=== PATIENT | female | born 1945 | race Caucasian/White ===

== ENCOUNTER 2016-03-23 21:24 | Inpatient (IN) | payer OTHER ==
--- NOTE | 2016-03-23 21:54 | PDOC ---
History of Present Illness <Mya Gonzales - Last Filed: 03/24/16 00:33> <Mireya Wallace - Last Filed: 03/24/16 02:16> - General Chief Complaint: Palpitations Stated Complaint: RAPID HEART RATE Time Seen by Provider: 03/23/16 21:34 - History of Present Illness Initial Comments: 03/23/16 23:15 The patient is a 70 year old female with a past medical hx of HTN, HLD, CAD, AFIB, CHF, [place] s/p cardiac stent, type 2 diabetes, who presents to the ED via EMS for evaluation of tachycardia this evening. EMS states she was found to be in SVT when they arrived at the scene. EMS states she was given 12 mg of adenosine en route to the ED, which she responded well too. The patient is feeling well while in the ED. She reports she has been taking half of the dose of her prescribed medications. The patient notes she has a long history of these tachycardic episodes in the past. The patient denies chest pain, SOB The patient denies fever, chills The patient denies nausea, vomiting, diarrhea Allergies: pregabalin, budesonide, celecoxib, formoterol fumarate, sulfacetamide sodium Past surgical history: Lung biopsy (2013), cardiac stent, brain aneurysm Social history: Social alcohol use. No tobacco or drug use reported PCP - Dr. Engle Cardiology - Dr. Lang (Mya Gonzales) Past History <Mya Gonzales - Last Filed: 03/24/16 00:33> - Past Medical History Anemia: No Asthma: No Cancer: No Cardiac Disorders: Yes (2009 STENT X1,, LINQ) 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) COPD: No CHF: No Dementia: No Diabetes: Yes GI Disorders: Yes (UMBILICAL HERNIA) Disorders: No HTN: Yes Hypercholesterolemia: Yes Liver Disease: No Suicide Attempt (Hx): No Seizures: No Thyroid Disease: No - Surgical History Abdominal Surgery: No Appendectomy: No Cardiac Surgery: Yes (STENT X 1, LOOP RECORDER INSERTION) Cholecystectomy: No Lung Surgery: Yes (biopsy May 2013) Neurologic Surgery: Yes (brain aneurysm clipped) Orthopedic Surgery: No - Immunization History Td Vaccination: Yes Immunization Up to Date: Yes - Psycho/Social/Smoking Cessation Hx Anxiety: No Suicidal Ideation: No Smoking Status: Yes Smoking History: Former smoker Years of Tobacco Use: 0 Have you smoked in the past 12 months: No Number of Cigarettes Smoked Daily: 0 If you are a former smoker, when did you quit?: 40 yrs Cigars Per Day: 0 Information on smoking cessation initiated: No 'Breaking Loose' booklet given: 08/17/13 Hx Alcohol Use: No Drug/Substance Use Hx: No Substance Use Type: None Hx Substance Use Treatment: No <Mireya Wallace - Last Filed: 03/24/16 02:16> - Past Medical History Allergies/Adverse Reactions: Allergies Allergy/AdvReac Type Severity Reaction Status Date / Time pregabalin [From Lyrica] Allergy Intermediate Verified 03/23/16 21:43 budesonide [From Symbicort] Allergy Verified 03/23/16 21:43 celecoxib [From Celebrex] Allergy Verified 03/23/16 21:43 formoterol fumarate Allergy Verified 03/23/16 21:43 [From Symbicort] sulfacetamide sodium Allergy Verified 03/23/16 21:43 [From Sulfamide] Home Medications: Ambulatory Orders Diltiazem Cd [Cardizem Cd -] 180 mg PO DAILY #30 cap.cd.24h 03/20/15 Atorvastatin Ca [Lipitor] 40 mg PO HS tablet 11/12/15 Furosemide [Lasix -] 20 mg PO DAILY tablet 11/12/15 Metformin HCl [Glucophage -] 500 mg PO BIDI tablet 11/12/15 Metoprolol Succinate [Toprol XL -] 50 mg PO DAILY tab.sr.24h 11/12/15 Ranitidine [Zantac -] 150 mg PO BID tablet 11/12/15 Sertraline HCl [Zoloft -] 25 mg PO DAILY tablet 11/12/15 Apixaban [Eliquis] 5 mg PO BID 12/22/15 Cardiac Specific PMH - Complaint Specific PMHX Pacemaker: No <Mireya Wallace - Last Filed: 03/24/16 02:16> Review of Systems - Review of Systems Able to Perform ROS?: Yes <Mya Gonzales - Last Filed: 03/24/16 00:33> <Mireya Wallace - Last Filed: 03/24/16 02:16> - Review of Systems Comments:: 03/23/16 23:21 CONSTITUTIONAL: Absent: fever, chills, diaphoresis, generalized weakness, malaise, loss of appetite HEENT: Absent: rhinorrhea, nasal congestion, throat pain, throat swelling, difficulty swallowing, mouth swelling, ear pain, eye pain, visual Changes CARDIOVASCULAR: +Tachycardia. Absent: chest pain, syncope, lightheadedness, peripheral edema RESPIRATORY: Absent: cough, shortness of breath, dyspnea with exertion, orthopnea, wheezing, stridor, hemoptysis GASTROINTESTINAL: Absent: abdominal pain, abdominal distension, nausea, vomiting, diarrhea, constipation, melena, hematochezia GENITOURINARY: Absent: dysuria, frequency, urgency, hesitancy, hematuria, flank pain, genital pain MUSCULOSKELETAL: Absent: myalgia, arthralgia, joint swelling SKIN: Absent: rash, itching, pallor NEUROLOGIC: Absent: headache, focal weakness or paresthesias, dizziness, unsteady gait, seizure, mental status changes, bladder or bowel incontinence PSYCHIATRIC: Absent: anxiety, depression, suicidal or homicidal ideation, hallucinations. ( Mya Gonzales) *Physical Exam <Mya Gonzales - Last Filed: 03/24/16 00:33> <Mireya Wallace - Last Filed: 03/24/16 02:16> - Vital Signs Last Vital Signs Temp Pulse Resp BP Pulse Ox 99.0 F 58 L 21 147/61 100 03/23/16 21:39 03/23/16 23:38 03/23/16 23:38 03/23/16 23:38 03/23/16 21:39 - Physical Exam Comments: 03/23/16 23:24 GENERAL: Well developed, well nourished. Awake and alert. No acute distress. HEENT: Normocephalic, atraumatic. PERRLA, EOMI. No conjunctival pallor. Sclera are non- icteric. Moist mucous membranes. Oropharynx is clear. NECK: Supple. Full ROM. No JVD. Carotid pulses 2+ and symmetric, without bruits. No thyromegaly. No lymphadenopathy. CARDIOVASCULAR: Regular rate and rhythm. No murmurs, rubs, or gallops. Distal pulses are 2+ and symmetric. PULMONARY: No evidence of respiratory distress. Lungs clear to auscultation bilaterally. No wheezing, rales or rhonchi. ABDOMINAL: Soft. Non-tender. Non-distended. No rebound or guarding. No organomegaly. Normoactive bowel sounds. MUSCULOSKELETAL Normal range of motion at all joints. No bony deformities or tenderness. No CVA tenderness. EXTREMITIES: No cyanosis. No clubbing. No edema. No calf tenderness. SKIN: Warm and dry. Normal capillary refill. No rashes. No jaundice. NEUROLOGICAL: Alert, awake, appropriate. Cranial nerves 2-12 intact. No deficits to light touch and temperature in face, upper extremities and lower extremities. No motor deficits in the in face, upper extremities and lower extremities. Normoreflexic in the upper and lower extremities. Normal speech. PSYCHIATRIC: Cooperative. Good eye contact. Appropriate mood and affect (Mya Gonzales) Heart Score/ECG Review <Mya Gonzales - Last Filed: 03/24/16 00:33> <Mireya Wallace - Last Filed: 03/24/16 02:16> - ECG Impressions Comment:: 03/23/16 23:58 EKG NSR at a rate of 70 bmp (Mya Gonzales) ED Treatment Course - LABORATORY CBC & Chemistry Diagram: 03/23/16 21:46 03/23/16 21:46 <Mya Gonzales - Last Filed: 03/24/16 00:33> - LABORATORY CBC & Chemistry Diagram: 03/23/16 21:46 03/23/16 21:46 <Mireya Wallace - Last Filed: 03/24/16 02:16> - ADDITIONAL ORDERS Additional order review: Laboratory Results 03/23/16 03/23/16 03/23/16 21:50 21:46 21:46 INR 1.02 Sodium 141 Potassium 4.0 Chloride 108 H Carbon Dioxide 24 Anion Gap 9 BUN 21 H D Creatinine 1.3 H D Creat Clearance w eGFR 40.38 Random Glucose 180 H D Calcium 8.2 L Magnesium 2.3 Total Bilirubin 0.4 D AST 18 D ALT 28 D Alkaline Phosphatase 77 Creatine Kinase 60 Troponin I < 0.02 Total Protein 6.4 Albumin 3.1 L TSH 2.23 D 03/23/16 21:46 RBC 4.95 MCV 89.7 MCHC 32.8 RDW 14.8 MPV 7.8 Neutrophils % 57.6 Lymphocytes % 31.9 Monocytes % 7.4 Eosinophils % 2.3 Basophils % 0.8 - RADIOLOGY Radiology Studies Ordered: Category Date Time Status CHEST X-RAY PORTABLE* [RAD] Stat Radiology 03/23/16 21:55 Taken Medical Decision Making <Mya Gonzales - Last Filed: 03/24/16 00:33> <Mireya Wallace - Last Filed: 03/24/16 02:16> - Medical Decision Making 03/24/16 00:[address] Engle, patients case was discussed. (Mya Gonzales) 03/24/16 02:10 70-year-old female brought in by ambulance because of SVT. Paramedics reported that she responded with 12 mg of adenosine -pt has history of svt and is followed by Dr Lyon -she had a LINQ placed in May 2015 she denies chest pain -upon arrival ekg was NSR w no evidence of ischemia -first cardiac enzyme is negative -spoke w Dr Patel and he alfonzo consult onthe pt in the morning -he recommended tele admit -case discussed w Dr Wills who admitted this pt (Mireya Wallace) *DC/Admit/Observation/Transfer <Mya Gonzales - Last Filed: 03/24/16 00:33> - Discharge Dispostion Admit: Yes <Mireya Wallace - Last Filed: 03/24/16 02:16> Diagnosis at time of Disposition: SVT (supraventricular tachycardia) Morbid obesity Qualifiers: Obesity type: unspecified obesity type Qualified Code(s): E66.01 - Morbid ( severe) obesity due to excess calories Diabetes Qualifiers: Diabetes mellitus type: type 2 Diabetes mellitus complication status: with hyperosmolarity Diabetes mellitus complication detail: without coma Diabetes mellitus cafeteria cashier insulin use: without senior care use Qualified Code(s): E11.00 - Type 2 diabetes mellitus with hyperosmolarity without nonketotic hyperglycemic -hyperosmolar coma ([facility]) - Discharge Dispostion Decision to Admit order Date/Time: Decision to Admit Order Category Date Time Status Decision to Admit to Hospital Routine Phy Order 03/24/16 00:27 Ordered - Referrals - Attestations Scribe Attestion: 03/23/16 23:22 Documentation prepared by Mya Gonzales, acting as medical anthropologist for Mireya Wallace MD/. (Mya Gonzales)
[2016-03-23 21:57] LABS: BASOPHIL 0.8 % (0-2.0); EOSINOPHIL 2.3 % (0-4.5); MCH 29.4 pg (25.7-33.7); MCHC 32.8 g/dl (32.0-36.0); MEAN CELL VOLUME 89.7 fl (80-96); MEAN PLT VOLUME 7.8 fl (7.5-11.1); NEUTROPHILS 57.6 % (42.8-82.8); PLATELET COUNT 208 K/MM3 (134-434); RDW 14.8 % (11.6-15.6); WHITE BLOOD COUNT 5.7 K/mm3 (4.0-10.0)
[2016-03-23 22:24] LABS: ALBUMIN 3.1 g/dl (3.4-5.0); ANION GAP 9 (8-16); BILIRUBIN,TOTAL 0.4 mg/dL (0.2-1.0); CALCIUM 8.2 mg/dL (8.5-10.1); CO2 24 mmol/L (21-32); CREATININE 1.3 mg/dL (0.55-1.02); GLUCOSE,RANDOM 180 mg/dL (74-106); SGOT/AST 18 U/L (15-37); SGPT/ALT 28 U/L (12-78); THYROXINE (T4) 9.1 ug/dl (4.8-13.9); TOT PROT 6.4 g/dl (6.4-8.2)
[2016-03-23 22:32] LABS: ALK PHOS 77 U/L (45-117); THYROID STIMULATING HORMONE 2.23 uIU/ml (0.358-3.74); TROPONIN I < 0.02 ng/ml (0.00-0.05)
[2016-03-23] MEDS ORDERED: ACETAMINOPHEN 325 MG TABLET (FP) ONE (23:35)
[2016-03-23 23:40] LABS: INR 1.02 (0.82-1.09); PROTHROMBIN TIME (PATIENT) 11.2 SEC (9.98-11.88)
--- NOTE | 2016-03-24 03:58 | CONSULT ---
Consult Consult Specialty:: cardiology Reason for Consultation:: episode of tachycardia - History of Present Illness History of Present Illness: The patient is a 70 year old female with a past medical hx of HTN, HLD, [place]--> coronary stent, AFIB, SVT, diastolic CHF, type 2 diabetes, who presents to the ED via EMS for evaluation of tachycardia this evening. EMS states she was found to be in SVT when they arrived at the scene. EMS states she was given 12 mg of adenosine en route to the ED, which she responded well to. The patient is presently feeling well while in the ED. She reports she has been taking half of the dose of her prescribed medications. The patient notes she has a long history of these tachycardic episodes in the past. The patient denies chest pain, SOB The patient denies fever, chills The patient denies nausea, vomiting, diarrhea Allergies: pregabalin, budesonide, celecoxib, formoterol fumarate, sulfacetamide sodium Past surgical history: Lung biopsy (2013), cardiac stent, brain aneurysm Social history: Social alcohol use. No tobacco or drug use reported PCP - Dr. Engle Cardiology - Dr. Pierre - History Source History Provided By: Patient, Medical Record - Past Medical History Cardio/Vascular: Yes: CAD, HTN, Hyperlipdemia, Other (PSVT in 2011) Pulmonary: Yes: Sleep Apnea (risks for FRANSISCA) Renal/: Yes: Renal Inusuff Reproductive: Yes: Postmenopausal ...: No Psych: Yes: Anxiety Endocrine: Yes: Diabetes Mellitus Additional Medical History: Condition Date Treating Physician Comments. ASHD promus stent pLAD 2008. CHF diastolic. DM. GERD. HHD. HTN. Hyperlipidemia. Morbid obesity. Negative MIBI ST September 2011 And May 2013. SVT - Past Surgical History Past Surgical History: Yes: Stent Additional Surgical History: Reveal Linq for HR/rhythm ongoing evaluation. - Alcohol/Substance Use Hx Alcohol Use: No - Smoking History Smoking history: Former smoker Have you smoked in the past 12 months: No Aproximately how many cigarettes per day: 0 If you are a former smoker, when did you quit?: 40 yrs - Social History Usual Living Arrangement: Other (with nephew; her daughter is close to her) History of Recent Travel: No Home Medications - Allergies Allergies/Adverse Reactions: Allergies Allergy/AdvReac Type Severity Reaction Status Date / Time pregabalin [From Lyrica] Allergy Intermediate Verified 03/23/16 21:43 budesonide [From Symbicort] Allergy Verified 03/23/16 21:43 celecoxib [From Celebrex] Allergy Verified 03/23/16 21:43 formoterol fumarate Allergy Verified 03/23/16 21:43 [From Symbicort] sulfacetamide sodium Allergy Verified 03/23/16 21:43 [From Sulfamide] - Home Medications Home Medications: Ambulatory Orders Diltiazem Cd [Cardizem Cd -] 180 mg PO DAILY #30 cap.cd.24h 03/20/15 Atorvastatin Ca [Lipitor] 40 mg PO HS tablet 11/12/15 Furosemide [Lasix -] 20 mg PO DAILY tablet 11/12/15 Metformin HCl [Glucophage -] 500 mg PO BIDI tablet 11/12/15 Metoprolol Succinate [Toprol XL -] 50 mg PO DAILY tab.sr.24h 11/12/15 Ranitidine [Zantac -] 150 mg PO BID tablet 11/12/15 Sertraline HCl [Zoloft -] 25 mg PO DAILY tablet 11/12/15 Apixaban [Eliquis] 5 mg PO BID 12/22/15 Review of Systems - Review of Systems Constitutional: reports: Weakness Eyes: reports: No Symptoms HENT: reports: No Symptoms Neck: reports: No Symptoms Cardiovascular: reports: Palpitations Respiratory: reports: SOB on Exertion Gastrointestinal: reports: No Symptoms Genitourinary: reports: No Symptoms Breasts: reports: No Symptoms Reported Musculoskeletal: reports: Muscle Weakness Integumentary: reports: No Symptoms Neurological: reports: Weakness Endocrine: reports: No Symptoms Hematology/Lymphatic: reports: No Symptoms Psychiatric: reports: No Symptoms - Risk Factors Known Risk Factors: Yes: Age, Diabetes Mellitus, Hypertension, Physical Inactivity, Prior NV /Emb Stroke, Other (diastolic CHF; obesity) Vital Signs: Vital Signs Temperature 99.0 F 03/23/16 21:39 Pulse Rate 58 L 03/23/16 23:38 Respiratory Rate 21 03/23/16 23:38 Blood Pressure 147/61 03/23/16 23:38 O2 Sat by Pulse Oximetry (%) 100 03/23/16 21:39 Constitutional: Yes: Obese Eyes: Yes: WNL HENT: Yes: WNL Neck: Yes: WNL Respiratory: Yes: WNL Gastrointestinal: Yes: Soft, Abdomen, Obese Renal/: No: Anuria Cardiovascular: Yes: Regular Rate and Rhythm, Bradycardia JVD: No Carotid Bruit: No PMI: Non-Displaced Heart Sounds: Yes: S1, S2, S4 - Other Data Labs, Other Data: INR, PTT INR 1.02 (0.82-1.09) 03/23/16 21:50 Echo: Report Reviewed (normal LVEF; abnormal diastolic compliance) Ejection Fraction %: LVEF > or = 40 % Imaging - Results Chest X-ray: Image Reviewed (no acute pathology) Problem List - Problems (1) Diabetes Code(s): E11.9 - TYPE 2 DIABETES MELLITUS WITHOUT COMPLICATIONS Qualifiers: Diabetes mellitus type: type 2 Diabetes mellitus complication status: with hyperosmolarity Diabetes mellitus complication detail: without coma Diabetes mellitus half-way insulin use: without buttermilk drier 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 use Qualified Code(s): E11.00 - Type 2 diabetes mellitus with hyperosmolarity without nonketotic hyperglycemic-hyperosmolar coma ([facility]); Z79.4 - skilled nursing (current) use of insulin (2) Morbid obesity Code(s): E66.01 - MORBID (SEVERE) OBESITY DUE TO EXCESS CALORIES Qualifiers: Obesity type: unspecified obesity type Qualified Code(s): E66.01 - Morbid (severe) obesity due to excess calories (3) SVT (supraventricular tachycardia) Code(s): I47.1 - SUPRAVENTRICULAR TACHYCARDIA (4) COPD (chronic obstructive pulmonary disease) Code(s): J44.9 - CHRONIC OBSTRUCTIVE PULMONARY DISEASE, UNSPECIFIED (5) HTN (hypertension), benign Code(s): I10 - ESSENTIAL (PRIMARY) HYPERTENSION (6) Hyperlipidemia Assessment/Plan: total cholesterol 101 mg/dL on 12/2015. Code(s): E78.5 - HYPERLIPIDEMIA, UNSPECIFIED (7) Obesity Code(s): E66.9 - OBESITY, UNSPECIFIED (8) Paroxysmal SVT (supraventricular tachycardia) Assessment/Plan: On diltiazem and metoprolol for HR control. On apizaban for anticoagulation (hx AF). TSH WnL; K WNL; Mg pending. For Reveal Linq interrogation. ECHO 12/2015: normal LVEF. TNI < 0.02; f/u serially. Code(s): I47.1 - SUPRAVENTRICULAR TACHYCARDIA (9) Paroxysmal atrial fibrillation Assessment/Plan: on Xarelto for anticoagulation On diltiazem and metoprolol for HR control. F/u electrolytes (K WNL; Mg pending). TSH WNL. Code(s): I48.0 - PAROXYSMAL ATRIAL FIBRILLATION (10) Sleep apnea Assessment/Plan: CPAP; weight loss. Code(s): G47.30 - SLEEP APNEA, UNSPECIFIED
[2016-03-24 07:21] LABS: TROPONIN I 0.03 ng/ml (0.00-0.05)
[2016-03-24] MEDS ORDERED: metFORMIN HCL 500 MG TABLET (FP) ONE (10:06)
[2016-03-24] MEDS ORDERED: RANITIDINE HCL 150 MG TABLET (FP) ONE (10:06)
[2016-03-24] MEDS ORDERED: METOPROLOL SUCCINATE 50 MG TAB.SR.24H (FP) ONE (10:06)
[2016-03-24] MEDS: RANITIDINE HCL 150 MG TABLET (FP) PO SCH ×2 (10:10→22:21)
[2016-03-24] MEDS: metFORMIN HCL 500 MG TABLET (FP) PO SCH ×2 (10:10→17:38)
[2016-03-24] MEDS: APIXABAN 5 MG TABLET PO SCH ×2 (10:10→22:20)
[2016-03-24] MEDS: METOPROLOL SUCCINATE 50 MG TAB.SR.24H (FP) PO SCH (10:10)
[2016-03-24] MEDS: SERTRALINE HCL 25 MG TABLET (FP) PO SCH (10:10)
[2016-03-24 12:05] VITALS: BMI 49.0
--- NOTE | 2016-03-24 15:20 | HP ---
Admitting History and Physical - Primary Care Physician PCP: Yamilet Engle - Admission History of Present Illness: 70 year old female with a past medical hx of HTN, HLD, [place]-->coronary stent, AFIB, SVT, diastolic CHF, type 2 diabetes, who presents to the ED via EMS for evaluation of tachycardia this evening. EMS states she was found to be in SVT when they arrived at the scene. EMS states she was given 12 mg of adenosine en route to the ED, which she responded well to. The patient is presently feeling well while in the ED. She reports she has been taking half of the dose of her prescribed medications. The patient notes she has a long history of these tachycardic episodes in the past. - Past Medical History Cardiovascular: Yes: CAD, HTN, Hyperlipdemia, Other (PSVT in 2011) Pulmonary: Yes: Sleep Apnea (risks for FRANSISCA) Renal/: Yes: Renal Inusuff ...: No Psych: Yes: Anxiety Endocrine: Yes: Diabetes Mellitus - Past Surgical History Past Surgical History: Yes: Stent - Smoking History Smoking history: Former smoker Have you smoked in the past 12 months: No Aproximately how many cigarettes per day: 0 If you are a former smoker, when did you quit?: 40 yrs - Alcohol/Substance Use Hx Alcohol Use: No - Social History History of Recent Travel: No Home Medications - Allergies Allergies/Adverse Reactions: Allergies Allergy/AdvReac Type Severity Reaction Status Date / Time pregabalin [From Lyrica] Allergy Intermediate Verified 03/23/16 21:43 budesonide [From Symbicort] Allergy Verified 03/23/16 21:43 celecoxib [From Celebrex] Allergy Verified 03/23/16 21:43 formoterol fumarate Allergy Verified 03/23/16 21:43 [From Symbicort] sulfacetamide sodium Allergy Verified 03/23/16 21:43 [From Sulfamide] - Home Medications Home Medications: Ambulatory Orders Atorvastatin Ca [Lipitor] 40 mg PO HS tablet 11/12/15 Furosemide [Lasix -] 20 mg PO DAILY tablet 11/12/15 Metformin HCl [Glucophage -] 500 mg PO BIDI tablet 11/12/15 Metoprolol Succinate [Toprol XL -] 50 mg PO DAILY tab.sr.24h 11/12/15 Ranitidine [Zantac -] 150 mg PO BID tablet 11/12/15 Sertraline HCl [Zoloft -] 25 mg PO DAILY tablet 11/12/15 Apixaban [Eliquis] 5 mg PO BID 12/22/15 Diltiazem Cd [Cardizem Cd -] 360 mg PO DAILY #60 cap.cd.24h 03/25/16 Physical Examination Vital Signs: Vital Signs Temperature 98.4 F 03/24/16 11:00 Pulse Rate 63 03/24/16 11:00 Respiratory Rate 16 03/24/16 11:00 Blood Pressure 133/74 03/24/16 11:00 O2 Sat by Pulse Oximetry (%) 98 03/24/16 12:01 Constitutional: Yes: No Distress HENT: Yes: Atraumatic Neck: Yes: Supple Cardiovascular: Yes: Regular Rate and Rhythm Respiratory: Yes: CTA Bilaterally Gastrointestinal: Yes: Normal Bowel Sounds Extremities: Yes: WNL Neurological: Yes: Alert, Oriented Problem List - Problems (1) Diabetes Assessment/Plan: PT ON METFORMIN BGMS...STABLE Code(s): E11.9 - TYPE 2 DIABETES MELLITUS WITHOUT COMPLICATIONS Qualifiers: Diabetes mellitus type: type 2 Diabetes mellitus complication status: with hyperosmolarity Diabetes mellitus complication detail: without coma Diabetes mellitus terminal clerk insulin use: without custodial use Qualified Code(s): E11.00 - Type 2 diabetes mellitus with hyperosmolarity without nonketotic hyperglycemic-hyperosmolar coma ([facility]); Z79.4 - prison ( current) use of insulin (2) Morbid obesity Code(s): E66.01 - MORBID (SEVERE) OBESITY DUE TO EXCESS CALORIES Qualifiers: Obesity type: unspecified obesity type Qualified Code(s): E66.01 - Morbid (severe) obesity due to excess calories (3) SVT (supraventricular tachycardia) Assessment/Plan: ON CARDIZEM, BLOOD THINNERS TELE MONITORING CARDIOLOGY CONSULT WILL FOLLOW CARDIAC ENZYMES TO R/O ANY CARDIAC DAMAGE Code(s): I47.1 - SUPRAVENTRICULAR TACHYCARDIA (4) HTN (hypertension), benign Assessment/Plan: ON MEDS STABEL Code(s): I10 - ESSENTIAL (PRIMARY) HYPERTENSION (5) Hyperlipidemia Assessment/Plan: ON MEDS STABLE Code(s): E78.5 - HYPERLIPIDEMIA, UNSPECIFIED (6) Paroxysmal atrial fibrillation Code(s): I48.0 - PAROXYSMAL ATRIAL FIBRILLATION Assessment/Plan Laboratory Results - last 24 hr 03/23/16 03/23/16 03/23/16 21:46 21:46 21:46 WBC 5.7 RBC 4.95 Hgb 14.5 Hct 44.4 MCV 89.7 MCHC 32.8 RDW 14.8 Plt Count 208 MPV 7.8 Neutrophils % 57.6 Lymphocytes % 31.9 Monocytes % 7.4 Eosinophils % 2.3 Basophils % 0.8 INR Sodium 141 Potassium 4.0 Chloride 108 H Carbon Dioxide 24 Anion Gap 9 BUN 21 H D Creatinine 1.3 H D Creat Clearance w eGFR 40.38 Random Glucose 180 H D Calcium 8.2 L Magnesium 2.3 Total Bilirubin 0.4 D AST 18 D ALT 28 D Alkaline Phosphatase 77 Creatine Kinase 60 Troponin I < 0.02 Total Protein 6.4 Albumin 3.1 L TSH 2.23 D 03/23/16 03/24/16 21:50 06:35 WBC RBC Hgb Hct MCV MCHC RDW Plt Count MPV Neutrophils % Lymphocytes % Monocytes % Eosinophils % Basophils % INR 1.02 Sodium Potassium Chloride Carbon Dioxide Anion Gap BUN Creatinine Creat Clearance w eGFR Random Glucose Calcium Magnesium Total Bilirubin AST ALT Alkaline Phosphatase Creatine Kinase 63 Troponin I 0.03 Total Protein Albumin TSH Active Medications Generic Name Dose Route Start Last Admin Trade Name Freq PRN Reason Stop Dose Admin Apixaban 5 mg 03/24/16 10:00 03/24/16 10:10 Eliquis - PO 5 mg BID BRUCE Administration Atorvastatin Calcium 40 mg 03/24/16 22:00 Lipitor - PO HS BRUCE Diltiazem HCl 180 mg 03/24/16 10:00 03/24/16 10:10 Cardizem Cd - PO 180 mg DAILY BRUCE Administration Metformin HCl 500 mg 03/24/16 07:00 03/24/16 10:10 Glucophage - PO 500 mg BIDAC BRUCE Administration Metoprolol Succinate 50 mg 03/24/16 10:00 03/24/16 10:10 Toprol Xl - PO 50 mg DAILY BRUCE Administration Ranitidine HCl 150 mg 03/24/16 10:00 03/24/16 10:10 Zantac - PO 150 mg BID BRUCE Administration Sertraline HCl 25 mg 03/24/16 10:00 03/24/16 10:10 Zoloft - PO 25 mg DAILY BRUCE Administration - A/P (1) Diabetes Assessment/Plan: PT ON METFORMIN BGMS...STABLE Code(s): E11.9 - TYPE 2 DIABETES MELLITUS WITHOUT COMPLICATIONS Qualifiers: Diabetes mellitus type: type 2 Diabetes mellitus complication status: with hyperosmolarity Diabetes mellitus complication detail: without coma Diabetes mellitus custodial insulin use: without terminal clerk use Qualified Code(s): E11.00 - Type 2 diabetes mellitus with hyperosmolarity without nonketotic hyperglycemic-hyperosmolar coma ([facility]); 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) 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 of insulin (2) Morbid obesity Code(s): E66.01 - MORBID (SEVERE) OBESITY DUE TO EXCESS CALORIES Qualifiers: Obesity type: unspecified obesity type Qualified Code(s): E66.01 - Morbid (severe) obesity due to excess calories (3) SVT (supraventricular tachycardia) Assessment/Plan: ON CARDIZEM, BLOOD THINNERS TELE MONITORING CARDIOLOGY CONSULT WILL FOLLOW CARDIAC ENZYMES TO R/O ANY CARDIAC DAMAGE Code(s): I47.1 - SUPRAVENTRICULAR TACHYCARDIA (4) HTN (hypertension), benign Assessment/Plan: ON MEDS STABEL Code(s): I10 - ESSENTIAL (PRIMARY) HYPERTENSION (5) Hyperlipidemia Assessment/Plan: ON MEDS STABLE Code(s): E78.5 - HYPERLIPIDEMIA, UNSPECIFIED (6) Paroxysmal atrial fibrillation Code(s): I48.0 - PAROXYSMAL ATRIAL FIBRILLATION DVT PPX
--- NOTE | 2016-03-24 15:51 | PN ---
Progress Note, Physician History of Present Illness: The patient is a 70 year old female with a past medical hx of HTN, HLD, [place]--> coronary stent, AFIB, SVT, diastolic CHF, type 2 diabetes, who presents to the ED via EMS for evaluation of tachycardia this evening. EMS states she was found to be in SVT when they arrived at the scene. EMS states she was given 12 mg of adenosine en route to the ED, which she responded well to. The patient is presently feeling well while in the ED. She reports she has been taking half of the dose of her prescribed medications. The patient notes she has a long history of these tachycardic episodes in the past. The patient denies chest pain, SOB The patient denies fever, chills The patient denies nausea, vomiting, diarrhea Allergies: pregabalin, budesonide, celecoxib, formoterol fumarate, sulfacetamide sodium Past surgical history: Lung biopsy (2013), cardiac stent, brain aneurysm Social history: Social alcohol use. No tobacco or drug use reported PCP - Dr. Engle Cardiology - Dr. Pierre - Current Medication List Current Medications: Active Medications Apixaban (Eliquis -) 5 mg PO BID [facility] Last Admin: 03/24/16 10:10 Dose: 5 mg Atorvastatin Calcium (Lipitor -) 40 mg PO [facility] Diltiazem HCl (Cardizem Cd -) 180 mg PO DAILY [facility] Last Admin: 03/24/16 10:10 Dose: 180 mg Metformin HCl (Glucophage -) 500 mg PO BIDAC [facility] Last Admin: 03/24/16 10:10 Dose: 500 mg Metoprolol Succinate (Toprol Xl -) 50 mg PO DAILY [facility] Last Admin: 03/24/16 10:10 Dose: 50 mg Ranitidine HCl (Zantac -) 150 mg PO BID [facility] Last Admin: 03/24/16 10:10 Dose: 150 mg Sertraline HCl (Zoloft -) 25 mg PO DAILY [facility] Last Admin: 03/24/16 10:10 Dose: 25 mg - Objective Vital Signs: Vital Signs Temperature 98.4 F 03/24/16 11:00 Pulse Rate 63 03/24/16 11:00 Respiratory Rate 16 03/24/16 11:00 Blood Pressure 133/74 03/24/16 11:00 O2 Sat by Pulse Oximetry (%) 98 03/24/16 12:01 Eyes: Yes: WNL, Conjunctiva Clear, EOM Intact HENT: Yes: WNL, Atraumatic, Normocephalic Neck: Yes: WNL, Supple, Trachea Midline Cardiovascular: Yes: WNL, Regular Rate and Rhythm Respiratory: Yes: WNL, Regular, CTA Bilaterally Gastrointestinal: Yes: WNL, Normal Bowel Sounds Genitourinary: Yes: WNL Musculoskeletal: Yes: WNL Extremities: Yes: WNL Edema: No Integumentary: Yes: WNL Neurological: Yes: WNL, Alert, Oriented ...Motor Strength: WNL Psychiatric: Yes: WNL Labs: INR, PTT INR 1.02 (0.82-1.09) 03/23/16 21:50 Assessment/Plan - Problems (1) Diabetes Code(s): E11.9 - TYPE 2 DIABETES MELLITUS WITHOUT COMPLICATIONS Qualifiers: Diabetes mellitus type: type 2 Diabetes mellitus complication status: with hyperosmolarity Diabetes mellitus complication detail: without coma Diabetes mellitus adjunct faculty for medical terminology insulin use: without adjunct faculty for medical terminology use Qualified Code(s): E11.00 - Type 2 diabetes mellitus with hyperosmolarity without nonketotic hyperglycemic-hyperosmolar coma ([facility]); Z79.4 - custodial (current) use of insulin (2) Morbid obesity Code(s): E66.01 - MORBID (SEVERE) OBESITY DUE TO EXCESS CALORIES Qualifiers: Obesity type: unspecified obesity type Qualified Code(s): E66.01 - Morbid (severe) obesity due to excess calories (3) SVT (supraventricular tachycardia) Code(s): I47.1 - SUPRAVENTRICULAR TACHYCARDIA (4) COPD (chronic obstructive pulmonary disease) Code(s): J44.9 - CHRONIC OBSTRUCTIVE PULMONARY DISEASE, UNSPECIFIED (5) HTN (hypertension), benign Code(s): I10 - ESSENTIAL (PRIMARY) HYPERTENSION (6) Hyperlipidemia Assessment/Plan: total cholesterol 101 mg/dL on 12/2015. Code(s): E78.5 - HYPERLIPIDEMIA, UNSPECIFIED (7) Obesity Code(s): E66.9 - OBESITY, UNSPECIFIED (8) Paroxysmal SVT (supraventricular tachycardia) Assessment/Plan: On diltiazem and metoprolol for HR control. On apizaban for anticoagulation (hx AF). TSH WnL; K WNL; Mg pending. For Reveal Linq interrogation. ECHO 12/2015: normal LVEF. TNI < 0.02; f/u serially. Code(s): I47.1 - SUPRAVENTRICULAR TACHYCARDIA (9) Paroxysmal atrial fibrillation Assessment/Plan: on Xarelto for anticoagulation On diltiazem and metoprolol for HR control. F/u electrolytes (K WNL; Mg pending). TSH WNL. Code(s): I48.0 - PAROXYSMAL ATRIAL FIBRILLATION (10) Sleep apnea Assessment/Plan: CPAP; weight loss. Code(s): G47.30 - SLEEP APNEA, UNSPECIFIED cont telemetry monitoring adjst the dose of Cardizem as tolerated
[2016-03-24] MEDS: ATORVASTATIN CA 40 MG TABLET (FP) PO SCH (22:21)
[2016-03-25] MEDS: metFORMIN HCL 500 MG TABLET (FP) PO SCH ×2 (06:56→17:17)
[2016-03-25] MEDS ORDERED: FUROSEMIDE 40 MG/4 ML INJECTABLE VIAL ONE (08:42)
[2016-03-25] MEDS: APIXABAN 5 MG TABLET PO SCH ×2 (09:33→21:57)
[2016-03-25] MEDS: RANITIDINE HCL 150 MG TABLET (FP) PO SCH ×2 (09:33→21:57)
[2016-03-25] MEDS: SERTRALINE HCL 25 MG TABLET (FP) PO SCH (09:33)
[2016-03-25] MEDS: METOPROLOL SUCCINATE 50 MG TAB.SR.24H (FP) PO SCH (09:33)
--- NOTE | 2016-03-25 10:41 | PN ---
Progress Note, Physician Chief Complaint: Pt sitting up at bedside; asymptomatic. History of Present Illness: The patient is a 70 year old female with a past medical hx of HTN, HLD, [place]--> coronary stent, AFIB, SVT, diastolic CHF, type 2 diabetes, who presents to the ED via EMS for evaluation of tachycardia this evening. EMS states she was found to be in SVT when they arrived at the scene. EMS states she was given 12 mg of adenosine en route to the ED, which she responded well to. The patient is presently feeling well while in the ED. She reports she has been taking half of the dose of her prescribed medications. The patient notes she has a long history of these tachycardic episodes in the past. The patient denies chest pain, SOB The patient denies fever, chills The patient denies nausea, vomiting, diarrhea Allergies: pregabalin, budesonide, celecoxib, formoterol fumarate, sulfacetamide sodium Past surgical history: Lung biopsy (2013), cardiac stent, brain aneurysm Social history: Social alcohol use. No tobacco or drug use reported PCP - Dr. Engle Cardiology - Dr. Pierre - Current Medication List Current Medications: Active Medications Apixaban (Eliquis -) 5 mg PO BID [facility] Last Admin: 03/25/16 09:33 Dose: 5 mg Atorvastatin Calcium (Lipitor -) 40 mg PO HS [facility] Last Admin: 03/24/16 22:21 Dose: 40 mg Diltiazem HCl (Cardizem Cd -) 180 mg PO DAILY [facility] Last Admin: 03/25/16 09:33 Dose: 180 mg Metformin HCl (Glucophage -) 500 mg PO BIDAC [facility] Last Admin: 03/25/16 06:56 Dose: 500 mg Metoprolol Succinate (Toprol Xl -) 50 mg PO DAILY [facility] Last Admin: 03/25/16 09:33 Dose: 50 mg Ranitidine HCl (Zantac -) 150 mg PO BID [facility] Last Admin: 03/25/16 09:33 Dose: 150 mg Sertraline HCl (Zoloft -) 25 mg PO DAILY [facility] Last Admin: 03/25/16 09:33 Dose: 25 mg - Objective Vital Signs: Vital Signs Temperature 98.1 F 03/25/16 02:00 Pulse Rate 69 03/25/16 02:00 Respiratory Rate 20 03/25/16 02:00 Blood Pressure 188/82 03/25/16 02:00 O2 Sat by Pulse Oximetry (%) 95 03/24/16 21:00 Constitutional: Yes: Calm, Obese Eyes: Yes: WNL HENT: Yes: WNL Neck: Yes: WNL Cardiovascular: Yes: Regular Rate and Rhythm Respiratory: Yes: Regular Gastrointestinal: Yes: Soft, Abdomen, Obese ...Rectal Exam: Yes: Deferred Genitourinary: No: Anuria Breast(s): Yes: WNL Musculoskeletal: Yes: Muscle Weakness Extremities: Yes: Cool Edema: No Peripheral Pulses WNL: Yes Integumentary: Yes: WNL Neurological: Yes: Alert, Oriented, Weakness Psychiatric: Yes: Alert, Oriented Labs: INR, PTT INR 1.02 (0.82-1.09) 03/23/16 21:50 - ....Imaging Other: Image Reviewed (telemetry: NSR; no SVT or AF; minimum HR 48 bpm.) Problem List - Problems (1) Diabetes Assessment/Plan: Start ACEI (HTN; DM) when BP and renal function allow. 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 Kan. She says she cannot walk very much. Changing diet and portion control were gone over. Code(s): E66.01 - MORBID (SEVERE) OBESITY DUE TO EXCESS CALORIES Qualifiers: Obesity type: unspecified obesity type Qualified Code(s): E66.01 - Morbid (severe) obesity due to excess calories (3) SVT (supraventricular tachycardia) Code(s): I47.1 - SUPRAVENTRICULAR TACHYCARDIA (4) COPD (chronic obstructive pulmonary disease) Code(s): J44.9 - CHRONIC OBSTRUCTIVE PULMONARY DISEASE, UNSPECIFIED (5) HTN (hypertension), benign Code(s): I10 - ESSENTIAL (PRIMARY) HYPERTENSION (6) Hyperlipidemia Assessment/Plan: total cholesterol 101 mg/dL on 12/2015. On statin. Code(s): E78.5 - HYPERLIPIDEMIA, UNSPECIFIED (7) Obesity Code(s): E66.9 - OBESITY, UNSPECIFIED (8) Paroxysmal SVT (supraventricular tachycardia) Assessment/Plan: On diltiazem and metoprolol for HR control. On apizaban for anticoagulation (hx easily inducible AF during EP study). TSH WnL; K and Mg WNL. Reveal Linq interrogation: period of AF/AT. ECHO 12/2015: normal LVEF. TNI < 0.02-->0.03. Code(s): I47.1 - SUPRAVENTRICULAR TACHYCARDIA (9) Paroxysmal atrial fibrillation Assessment/Plan: Reveal Linq: period of AF/AT to 190 bpm. Telemetry: NSR; minimal HR 48 bpm while awake; Pt asymptomatic. on Xarelto for anticoagulation On diltiazem and metoprolol for HR control; as discussed with Dr. Pierre, will increase diltiazem CD to 360 mg daily. From a cardiac standpoint, pt may be followed as outpatient. Pt for f/u with Dr. Long Hanna, EP. as outpatient. Code(s): I48.0 - PAROXYSMAL ATRIAL FIBRILLATION (10) Sleep apnea Assessment/Plan: CPAP; weight loss. Code(s): G47.30 - SLEEP APNEA, UNSPECIFIED
[2016-03-25 15:38] LABS: TROPONIN I < 0.02 ng/ml (0.00-0.05)
--- NOTE | 2016-03-25 18:59 | PN ---
Progress Note, Physician History of Present Illness: DOING WELL - Current Medication List Current Medications: Active Medications Apixaban (Eliquis -) 5 mg PO BID [facility] Last Admin: 03/25/16 09:33 Dose: 5 mg Atorvastatin Calcium (Lipitor -) 40 mg PO HS [facility] Last Admin: 03/24/16 22:21 Dose: 40 mg Diltiazem HCl (Cardizem Cd -) 360 mg PO DAILY [facility] Metformin HCl (Glucophage -) 500 mg PO BIDAC [facility] Last Admin: 03/25/16 17:17 Dose: 500 mg Metoprolol Succinate (Toprol Xl -) 50 mg PO DAILY [facility] Last Admin: 03/25/16 09:33 Dose: 50 mg Ranitidine HCl (Zantac -) 150 mg PO BID [facility] Last Admin: 03/25/16 09:33 Dose: 150 mg Sertraline HCl (Zoloft -) 25 mg PO DAILY [facility] Last Admin: 03/25/16 09:33 Dose: 25 mg - Objective Vital Signs: Vital Signs Temperature 98.3 F 03/25/16 15:59 Pulse Rate 65 03/25/16 15:59 Respiratory Rate 22 03/25/16 15:59 Blood Pressure 129/80 03/25/16 15:59 O2 Sat by Pulse Oximetry (%) 95 03/25/16 09:00 Constitutional: Yes: No Distress HENT: Yes: Atraumatic Neck: Yes: Supple Cardiovascular: Yes: Pulse Irregular Respiratory: Yes: CTA Bilaterally Gastrointestinal: Yes: Normal Bowel Sounds Extremities: Yes: WNL Neurological: Yes: Alert, Oriented Labs: INR, PTT INR 1.02 (0.82-1.09) 03/23/16 21:50 Problem List - Problems (1) Diabetes Code(s): E11.9 - TYPE 2 DIABETES MELLITUS WITHOUT COMPLICATIONS Qualifiers: Diabetes mellitus type: type 2 Diabetes mellitus complication status: with hyperosmolarity Diabetes mellitus complication detail: without coma Diabetes mellitus mcfp insulin use: without mcfp use Qualified Code(s): E11.00 - Type 2 diabetes mellitus with hyperosmolarity without nonketotic hyperglycemic-hyperosmolar coma ([facility]); 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 (2) Morbid obesity Code(s): E66.01 - MORBID (SEVERE) OBESITY DUE TO EXCESS CALORIES Qualifiers: Obesity type: unspecified obesity type Qualified Code(s): E66.01 - Morbid (severe) obesity due to excess calories (3) SVT (supraventricular tachycardia) Code(s): I47.1 - SUPRAVENTRICULAR TACHYCARDIA (4) HTN (hypertension), benign Code(s): I10 - ESSENTIAL (PRIMARY) HYPERTENSION (5) Hyperlipidemia Code(s): E78.5 - HYPERLIPIDEMIA, UNSPECIFIED (6) Paroxysmal atrial fibrillation Code(s): I48.0 - PAROXYSMAL ATRIAL FIBRILLATION Assessment/Plan - A/P (1) Diabetes Assessment/Plan: PT ON METFORMIN BGMS...STABLE Code(s): E11.9 - TYPE 2 DIABETES MELLITUS WITHOUT COMPLICATIONS Qualifiers: Diabetes mellitus type: type 2 Diabetes mellitus complication status: with hyperosmolarity Diabetes mellitus complication detail: without coma Diabetes mellitus mcfp insulin use: without rat exterminator use Qualified Code(s): E11.00 - Type 2 diabetes mellitus with hyperosmolarity without nonketotic hyperglycemic-hyperosmolar coma ([facility]); 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 (2) Morbid obesity Code(s): E66.01 - MORBID (SEVERE) OBESITY DUE TO EXCESS CALORIES Qualifiers: Obesity type: unspecified obesity type Qualified Code(s): E66.01 - Morbid (severe) obesity due to excess calories (3) SVT (supraventricular tachycardia) Assessment/Plan: ON CARDIZEM...ADJUSTING THE DOSE BLOOD THINNERS TELE MONITORING DC IN AM IF STABLE Code(s): I47.1 - SUPRAVENTRICULAR TACHYCARDIA (4) HTN (hypertension), benign Assessment/Plan: ON MEDS STABEL Code(s): I10 - ESSENTIAL (PRIMARY) HYPERTENSION (5) Hyperlipidemia Assessment/Plan: ON MEDS STABLE Code(s): E78.5 - HYPERLIPIDEMIA, UNSPECIFIED (6) Paroxysmal atrial fibrillation Code(s): I48.0 - PAROXYSMAL ATRIAL FIBRILLATION DVT PPX DC IN AM IF STABLE
[2016-03-25] MEDS: ATORVASTATIN CA 40 MG TABLET (FP) PO SCH (21:57)
[2016-03-26] MEDS: metFORMIN HCL 500 MG TABLET (FP) PO SCH (06:29)
[2016-03-26 07:48] VITALS: BP 114/60; PULSE 64; TEMP 98.6
[2016-03-26] MEDS: METOPROLOL SUCCINATE 50 MG TAB.SR.24H (FP) PO SCH (10:14)
[2016-03-26] MEDS: SERTRALINE HCL 25 MG TABLET (FP) PO SCH (10:14)
[2016-03-26] MEDS: RANITIDINE HCL 150 MG TABLET (FP) PO SCH (10:14)
[2016-03-26] MEDS: APIXABAN 5 MG TABLET PO SCH (10:14)
--- NOTE | 2016-03-26 11:08 | PN ---
Progress Note, Physician History of Present Illness: The patient is a 70 year old female with a past medical hx of HTN, HLD, [place]--> coronary stent, AFIB, SVT, diastolic CHF, type 2 diabetes, who presents to the ED via EMS for evaluation of tachycardia this evening. EMS states she was found to be in SVT when they arrived at the scene. EMS states she was given 12 mg of adenosine en route to the ED, which she responded well to. The patient is presently feeling well while in the ED. She reports she has been taking half of the dose of her prescribed medications. The patient notes she has a long history of these tachycardic episodes in the past. The patient denies chest pain, SOB The patient denies fever, chills The patient denies nausea, vomiting, diarrhea Allergies: pregabalin, budesonide, celecoxib, formoterol fumarate, sulfacetamide sodium Past surgical history: Lung biopsy (2013), cardiac stent, brain aneurysm Social history: Social alcohol use. No tobacco or drug use reported PCP - Dr. Engle Cardiology - Dr. Pierre - Objective Vital Signs: Vital Signs Temperature 98.6 F 03/26/16 07:43 Pulse Rate 64 03/26/16 07:43 Respiratory Rate 20 03/26/16 07:43 Blood Pressure 114/60 03/26/16 07:43 O2 Sat by Pulse Oximetry (%) 96 03/26/16 09:00 Eyes: Yes: WNL, Conjunctiva Clear, EOM Intact HENT: Yes: WNL, Atraumatic, Normocephalic Neck: Yes: WNL, Supple, Trachea Midline Cardiovascular: Yes: WNL, Regular Rate and Rhythm Respiratory: Yes: WNL, Regular, CTA Bilaterally Gastrointestinal: Yes: WNL, Normal Bowel Sounds Genitourinary: Yes: WNL Musculoskeletal: Yes: WNL Extremities: Yes: WNL Edema: No Integumentary: Yes: WNL Neurological: Yes: WNL, Alert, Oriented ...Motor Strength: WNL Psychiatric: Yes: WNL Labs: INR, PTT INR 1.02 (0.82-1.09) 03/23/16 21:50 Assessment/Plan - Problems (1) Diabetes Assessment/Plan: Start ACEI (HTN; DM) when BP and renal function allow. 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 Kan. She says she cannot walk very much. Changing diet and portion control were gone over. Code(s): E66.01 - MORBID (SEVERE) OBESITY DUE TO EXCESS CALORIES Qualifiers: Obesity type: unspecified obesity type Qualified Code(s): E66.01 - Morbid (severe) obesity due to excess calories (3) SVT (supraventricular tachycardia) Code(s): I47.1 - SUPRAVENTRICULAR TACHYCARDIA (4) COPD (chronic obstructive pulmonary disease) Code(s): J44.9 - CHRONIC OBSTRUCTIVE PULMONARY DISEASE, UNSPECIFIED (5) HTN (hypertension), benign Code(s): I10 - ESSENTIAL (PRIMARY) HYPERTENSION (6) Hyperlipidemia Assessment/Plan: total cholesterol 101 mg/dL on 12/2015. On statin. Code(s): E78.5 - HYPERLIPIDEMIA, UNSPECIFIED (7) Obesity Code(s): E66.9 - OBESITY, UNSPECIFIED (8) Paroxysmal SVT (supraventricular tachycardia) Assessment/Plan: On diltiazem and metoprolol for HR control. On apizaban for anticoagulation (hx easily inducible AF during EP study). TSH WnL; K and Mg WNL. Reveal Linq interrogation: period of AF/AT. ECHO 12/2015: normal LVEF. TNI < 0.02-->0.03. Code(s): I47.1 - SUPRAVENTRICULAR TACHYCARDIA (9) Paroxysmal atrial fibrillation Assessment/Plan: Reveal Linq: period of AF/AT to 190 bpm. Telemetry: NSR; minimal HR 48 bpm while awake; Pt asymptomatic. on Xarelto for anticoagulation On diltiazem and metoprolol for HR control; as discussed with Dr. Pierre, will increase diltiazem CD to 360 mg daily. From a cardiac standpoint, pt may be followed as outpatient. Pt for f/u with Dr. Long Hanna EP. as outpatient. Code(s): I48.0 - PAROXYSMAL ATRIAL FIBRILLATION (10) Sleep apnea Assessment/Plan: CPAP; weight loss. Code(s): G47.30 - SLEEP APNEA, UNSPECIFIED
--- NOTE | 2016-03-26 11:54 | EKG ---
Test Reason : Blood Pressure : / mmHG Vent. Rate : 070 BPM Atrial Rate : 070 BPM P-R Int : 150 ms QRS Dur : 076 ms QT Int : 406 ms P-R-T Axes : 042 -19 072 degrees QTc Int : 438 ms NORMAL SINUS RHYTHM SEPTAL INFARCT , AGE UNDETERMINED ABNORMAL ECG WHEN COMPARED WITH ECG OF 22-JAN-2016 16:55, VENT. RATE HAS INCREASED BY 23 BPM T WAVE INVERSION NO LONGER EVIDENT IN ANTERIOR LEADS Confirmed by FABIO DAVIS, BOBO ([id number]) on 03/26/2016 11:54:14 AM Referred By: Confirmed By:BOBO MCCARTHY MD
--- NOTE | 2016-03-26 18:40 | DS ---
Physical Examination Vital Signs: Vital Signs Temperature 98.6 F 03/26/16 07:43 Pulse Rate 64 03/26/16 07:43 Respiratory Rate 20 03/26/16 07:43 Blood Pressure 114/60 03/26/16 07:43 O2 Sat by Pulse Oximetry (%) 96 03/26/16 09:00 Constitutional: Yes: No Distress HENT: Yes: Atraumatic Neck: Yes: Supple Cardiovascular: Yes: Regular Rate and Rhythm Respiratory: Yes: CTA Bilaterally Gastrointestinal: Yes: Normal Bowel Sounds Extremities: Yes: WNL Neurological: Yes: Alert, Oriented Discharge Summary Reason For Visit: SVT, DIABETES MORBID OBESITY Current Active Problems Diabetes (Acute) Morbid obesity (Acute) SVT (supraventricular tachycardia) (Acute) - Instructions Referrals: Yamilet Engle MD [Primary Care Provider] - Disposition: HOME - Home Medications Comprehensive Discharge Medication List: Ambulatory Orders Atorvastatin Ca [Lipitor] 40 mg PO HS tablet 11/12/15 Furosemide [Lasix -] 20 mg PO DAILY tablet 11/12/15 Metformin HCl [Glucophage -] 500 mg PO BIDI tablet 11/12/15 Metoprolol Succinate [Toprol XL -] 50 mg PO DAILY tab.sr.24h 11/12/15 Ranitidine [Zantac -] 150 mg PO BID tablet 11/12/15 Sertraline HCl [Zoloft -] 25 mg PO DAILY tablet 11/12/15 Apixaban [Eliquis] 5 mg PO BID 12/22/15 Diltiazem Cd [Cardizem Cd -] 360 mg PO DAILY #60 cap.cd.24h 03/25/16 [facility]
== END 2016-03-26 10:48 | disposition home or self-care (01) | DRG 309 ==
LOC: SUPCPDRO 21:24 → JER 21:24 → JERBED 03-24 01:03 → OBSVTOIN 03-24 12:47 → J4W 03-24 17:10
PROVIDERS: ADMIT Internal Medicine; ATTEND Internal Medicine
DX: I47.1 Supraventricular tachycardia (principal); Z68.42 Body mass index [BMI] 45.0-49.9, adult; I50.30 Unspecified diastolic (congestive) heart failure; E66.01 Morbid (severe) obesity due to excess calories; I10 Essential (primary) hypertension; E78.5 Hyperlipidemia, unspecified; I25.10 Atherosclerotic heart disease of native coronary artery without angina pectoris; Z98.61 Coronary angioplasty status; E11.9 Type 2 diabetes mellitus without complications; I25.2 Old myocardial infarction; I48.0 Paroxysmal atrial fibrillation; G47.30 Sleep apnea, unspecified; J44.9 Chronic obstructive pulmonary disease, unspecified; Z87.891 Personal history of nicotine dependence
CPT/HCPCS: 36415; 71010-TC; 80053; 82550; 83735; 84436; 84443; 84484; 85025; 85610; 93005; 93010; 99285-25; G0378

== ENCOUNTER 2016-09-21 21:48 | Observation (INO) | payer OTHER ==
[2016-09-21 22:25] VITALS: BMI 31.6
--- NOTE | 2016-09-21 22:38 | PDOC ---
History of Present Illness - General History Source: Patient Exam Limitations: No Limitations <Lupillo Hairston - Last Filed: 09/21/16 23:35> <Mireya Wallace - Last Filed: 09/22/16 01:24> - General Chief Complaint: Psychiatric Stated Complaint: CHEST PAIN Time Seen by Provider: 09/21/16 22:32 - History of Present Illness Initial Comments: 09/21/16 23:35 The patient is a 71 year old obese female with a significant past medical history of AFIB, stent placed in 2008, CVA, brain aneurysm clipped, umbilical hernia, HTN, and HLD, who presents to the ED with achy chest pain that began at 5 PM today. Patient states the chest pain radiated to the back of both shoulders. She describes the pain as 5/10 in severity. She denies SOB, palpitations, fever, chills, nausea, vomiting, diarrhea. She denies dysuria, frequency, hematuria. (Lupillo Hairston) Past History <Lupillo Hairston - Last Filed: 09/21/16 23:35> - Past Medical History Anemia: No Asthma: No Cancer: No Cardiac Disorders: Yes (2009 STENT X1,, LINQ) 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) COPD: No CHF: No Dementia: No Diabetes: Yes GI Disorders: Yes (UMBILICAL HERNIA) Disorders: No HTN: Yes Hypercholesterolemia: Yes Liver Disease: No Suicide Attempt (Hx): No Seizures: No Thyroid Disease: No - Surgical History Abdominal Surgery: No Appendectomy: No Cardiac Surgery: Yes (STENT X 1, LOOP RECORDER INSERTION) Cholecystectomy: No Lung Surgery: Yes (biopsy May 2013) Neurologic Surgery: Yes (brain aneurysm clipped) Orthopedic Surgery: No - Immunization History Td Vaccination: Yes Immunization Up to Date: Yes - Psycho/Social/Smoking Cessation Hx Anxiety: No Suicidal Ideation: No Smoking Status: Yes Smoking History: Never smoked Years of Tobacco Use: 0 Have you smoked in the past 12 months: No Number of Cigarettes Smoked Daily: 0 If you are a former smoker, when did you quit?: 40 yrs Cigars Per Day: 0 Information on smoking cessation initiated: No 'Breaking Loose' booklet given: 08/17/13 Hx Alcohol Use: No Drug/Substance Use Hx: No Substance Use Type: None Hx Substance Use Treatment: No <Mireya Wallace - Last Filed: 09/22/16 01:24> - Past Medical History Allergies/Adverse Reactions: Allergies Allergy/AdvReac Type Severity Reaction Status Date / Time pregabalin [From Lyrica] Allergy Intermediate Verified 09/21/16 22:05 budesonide [From Symbicort] Allergy Verified 09/21/16 22:05 celecoxib [From Celebrex] Allergy Verified 09/21/16 22:05 formoterol fumarate Allergy Verified 09/21/16 22:05 [From Symbicort] sulfacetamide sodium Allergy Verified 09/21/16 22:05 [From Sulfamide] Home Medications: Ambulatory Orders Atorvastatin Ca [Lipitor] 40 mg PO HS tablet 11/12/15 Furosemide [Lasix -] 20 mg PO DAILY tablet 11/12/15 Metformin HCl [Glucophage -] 500 mg PO BIDI tablet 11/12/15 Metoprolol Succinate [Toprol XL -] 50 mg PO DAILY tab.sr.24h 11/12/15 Ranitidine [Zantac -] 150 mg PO BID tablet 11/12/15 Sertraline HCl [Zoloft -] 25 mg PO DAILY tablet 11/12/15 Apixaban [Eliquis] 5 mg PO BID 12/22/15 Diltiazem Cd [Cardizem Cd -] 360 mg PO DAILY #60 cap.cd.24h 03/25/16 Cardiac Specific PMH - Complaint Specific PMHX Pacemaker: No <Mireya Wallace - Last Filed: 09/22/16 01:24> Review of Systems - Review of Systems Able to Perform ROS?: Yes <Lupillo Hairston - Last Filed: 09/21/16 23:35> <Mireya Wallace - Last Filed: 09/22/16 01:24> - Review of Systems Comments:: 09/21/16 23:36 CONSTITUTIONAL: Absent: fever, chills, diaphoresis, generalized weakness, malaise, loss of appetite HEENT: Absent: rhinorrhea, nasal congestion, throat pain, throat swelling, difficulty swallowing, mouth swelling, ear pain, eye pain, visual Changes CARDIOVASCULAR: Present: achy chest pain. Absent: syncope, palpitations, irregular heart rate, lightheadedness, peripheral edema RESPIRATORY: Absent: cough, shortness of breath, dyspnea with exertion, orthopnea, wheezing, stridor, hemoptysis GASTROINTESTINAL: Absent: abdominal pain, abdominal distension, nausea, vomiting, diarrhea, constipation, melena, hematochezia GENITOURINARY: Absent: dysuria, frequency, urgency, hesitancy, hematuria, flank pain, genital pain MUSCULOSKELETAL: Absent: myalgia, arthralgia, joint swelling SKIN: Absent: rash, itching, pallor HEMATOLOGIC/IMMUNOLOGIC: Absent: easy bleeding, easy bruising, lymphadenopathy, frequent infections ENDOCRINE: Absent: unexplained weight gain, unexplained weight loss, heat intolerance, cold intolerance NEUROLOGIC: Absent: headache, focal weakness or paresthesias, dizziness, unsteady gait, seizure, mental status changes, bladder or bowel incontinence PSYCHIATRIC: Absent: anxiety, depression, suicidal or homicidal ideation, hallucinations. (Lupillo Hairston) *Physical Exam <Lupillo Hairston - Last Filed: 09/21/16 23:35> <Mireya Wallace - Last Filed: 09/22/16 01:24> - Vital Signs Last Vital Signs Temp Pulse Resp BP Pulse Ox 97.7 F 78 16 155/83 98 09/21/16 22:06 09/21/16 22:06 09/21/16 22:06 09/21/16 22:06 09/21/16 22:06 - Physical Exam Comments: 09/21/16 23:36 GENERAL: Well developed, well nourished. Awake and alert. No acute distress. HEENT: Normocephalic, atraumatic. PERRLA, EOMI. No conjunctival pallor. Sclera are non- icteric. Moist mucous membranes. Oropharynx is clear. NECK: Supple. Full ROM. No JVD. Carotid pulses 2+ and symmetric, without bruits. No thyromegaly. No lymphadenopathy. CARDIOVASCULAR: Regular rate and rhythm. No murmurs, rubs, or gallops. Distal pulses are 2+ and symmetric. PULMONARY: No evidence of respiratory distress. Lungs clear to auscultation bilaterally. No wheezing, rales or rhonchi. ABDOMINAL: Protuberant belly. Soft. Non-tender. Non-distended. No rebound or guarding. No organomegaly. Normoactive bowel sounds. MUSCULOSKELETAL Normal range of motion at all joints. No bony deformities or tenderness. No CVA tenderness. EXTREMITIES: No cyanosis. No clubbing. No edema. No calf tenderness. SKIN: Warm and dry. Normal capillary refill. No rashes. No jaundice. NEUROLOGICAL: Alert, awake, appropriate. Cranial nerves 2-12 intact. No deficits to light touch and temperature in face, upper extremities and lower extremities. No motor deficits in the in face, upper extremities and lower extremities. Normoreflexic in the upper and lower extremities. Normal speech. Toes are down-going bilaterally. Gait is normal without ataxia. PSYCHIATRIC: Cooperative. Good eye contact. Appropriate mood and affect. (Lupillo Hairston) ED Treatment Course - LABORATORY CBC & Chemistry Diagram: 09/21/16 23:02 09/21/16 23:02 <Lupillo Hairston - Last Filed: 09/21/16 23:35> - LABORATORY CBC & Chemistry Diagram: 09/21/16 23:02 09/22/16 00:26 <Mireya Wallace - Last Filed: 09/22/16 01:24> - ADDITIONAL ORDERS Additional order review: Laboratory Results 09/22/16 09/21/16 09/21/16 00:26 23:02 23:02 INR 1.11 Sodium 139 Cancelled Potassium 3.8 Cancelled Chloride 104 Cancelled Carbon Dioxide 27 Cancelled Anion Gap 8 Cancelled BUN 17 Cancelled Creatinine 0.9 D Cancelled Creat Clearance w eGFR > 60 Cancelled Random Glucose 197 H Cancelled Calcium 8.2 L Cancelled Magnesium Cancelled Total Bilirubin 0.6 D Cancelled AST 10 L D Cancelled ALT 19 D Cancelled Alkaline Phosphatase 75 Cancelled Creatine Kinase 45 Cancelled Troponin I < 0.02 Cancelled B-Natriuretic Peptide Cancelled Total Protein 6.2 L Cancelled Albumin 3.1 L Cancelled 09/21/16 23:02 RBC 4.75 MCV 90.5 MCHC 33.5 RDW 14.3 MPV 8.8 D Neutrophils % 76.9 D Lymphocytes % 12.7 D Monocytes % 8.2 Eosinophils % 1.4 Basophils % 0.8 - RADIOLOGY Radiology Studies Ordered: Category Date Time Status CHEST X-RAY PORTABLE* [RAD] Stat Radiology 09/21/16 22:40 Taken - Medications Given in the ED: ED Medications Discontinued Medications Generic Name Dose Route Start Last Admin Trade Name Freq PRN Reason Stop Dose Admin Aspirin 162 mg 09/21/16 22:40 09/21/16 22:53 Asa - PO 09/21/16 22:41 162 mg ONCE ONE Administration Medical Decision Making <Lupillo Hairston - Last Filed: 09/21/16 23:35> <Mireya Wallace - Last Filed: 09/22/16 01:24> - Medical Decision Making 09/22/16 01:20 71-year-old female brought in by ambulance for chest pain. This started at 5 PM. Patient states the pain was left-sided, substernal, radiating to her back. Past history significant for coronary artery disease, diabetes, hypertension, obesity PCP is Dr Engle Patient took aspirin. EKG was normal sinus rhythm at 70 bpm -first cardiac enzyme was negative. Will admit to hospitalist for R/O CA , telemetry OBS 09/22/16 01:22 (Mrieya Wallace) *DC/Admit/Observation/Transfer <Lupillo Hairston - Last Filed: 09/21/16 23:35> - Discharge Dispostion Admit: Yes <Mireya Wallace - Last Filed: 09/22/16 01:24> Diagnosis at time of Disposition: Morbid obesity, Bilateral swelling of feet Chest pain Qualifiers: Chest pain type: unspecified Qualified Code(s): R07.9 - Chest pain, unspecified - Attestations Scribe Attestion: 09/21/16 23:36 Documentation prepared by Lupillo Hairston, acting as medical billing instructor for Mireya Wallace MD. (Lupillo Hairston)
[2016-09-21] MEDS ORDERED: ASPIRIN 81 MG CHEWABLE TABLETS PO ONE (22:40)
[2016-09-21] MEDS ORDERED: ASPIRIN 81 MG CHEWABLE TABLETS ONE (22:50)
[2016-09-21 23:37] LABS: BASOPHIL 0.8 % (0-2.0); EOSINOPHIL 1.4 % (0-4.5); MCH 30.3 pg (25.7-33.7); MCHC 33.5 g/dl (32.0-36.0); MEAN CELL VOLUME 90.5 fl (80-96); MEAN PLT VOLUME 8.8 fl (7.5-11.1); NEUTROPHILS 76.9 % (42.8-82.8); PLATELET COUNT 181 K/MM3 (134-434); RDW 14.3 % (11.6-15.6); WHITE BLOOD COUNT 10.1 K/mm3 (4.0-10.0)
[2016-09-21 23:49] LABS: INR 1.11 (0.82-1.09); PROTHROMBIN TIME (PATIENT) 12.2 SEC (9.98-11.88)
[2016-09-22 00:57] LABS: ALBUMIN 3.1 g/dl (3.4-5.0); ANION GAP 8 (8-16); BILIRUBIN,TOTAL 0.6 mg/dL (0.2-1.0); CALCIUM 8.2 mg/dL (8.5-10.1); CO2 27 mmol/L (21-32); CREATININE 0.9 mg/dL (0.55-1.02); GLUCOSE,RANDOM 197 mg/dL (74-106); SGOT/AST 10 U/L (15-37); SGPT/ALT 19 U/L (12-78); TOT PROT 6.2 g/dl (6.4-8.2)
[2016-09-22 01:00] LABS: ALK PHOS 75 U/L (45-117); TROPONIN I < 0.02 ng/ml (0.00-0.05)
--- NOTE | 2016-09-22 01:24 | PN ---
Teaching Attending Note Name of Resident: Raji Lees ATTENDING PHYSICIAN STATEMENT I saw and evaluated the patient. I reviewed the resident's note and discussed the case with the resident. I agree with the resident's findings and plan as documented. SUBJECTIVE: 71 yo obese female with hx. of Afib, CAD s/p Stent, CVA, brain aneuryism s/p clipping, umbilical hernia, htn, hld who presents with chest pain. Chest Pain resolved on my arriveall. No shortness of breath. No N/v/D. States that currently she has NO chest pain, pressure or shortness of breah. OBJECTIVE: Physical: VS: Vital Signs Period Temp Pulse Resp BP Sys/Bowen Pulse Ox Last 24 Hr 97.7 F 78 16 155/83 98 GEN: NAd, Resting in bed, SS, Obese HEENT: NCAT, PERRL CARD: RRR S,S2 RESP: CTA ABD: BS X4, NTD to palpation EXT: - C/C?e CBCD WBC 10.1 K/mm3 (4.0-10.0) H D 09/21/16 23:02 RBC 4.75 M/mm3 (3.60-5.2) 09/21/16 23:02 Hgb 14.4 GM/dL (10.7-15.3) 09/21/16 23:02 Hct 43.0 % (32.4-45.2) 09/21/16 23:02 MCV 90.5 fl (80-96) 09/21/16 23:02 MCHC 33.5 g/dl (32.0-36.0) 09/21/16 23:02 RDW 14.3 % (11.6-15.6) 09/21/16 23:02 Plt Count 181 K/MM3 (134-434) 09/21/16 23:02 MPV 8.8 fl (7.5-11.1) D 09/21/16 23:02 CMP Sodium 139 mmol/L (136-145) 09/22/16 00:26 Potassium 3.8 mmol/L (3.5-5.1) 09/22/16 00:26 Chloride 104 mmol/L (98-107) 09/22/16 00:26 Carbon Dioxide 27 mmol/L (21-32) 09/22/16 00:26 Anion Gap 8 (8-16) 09/22/16 00:26 BUN 17 mg/dL (7-18) 09/22/16 00:26 Creatinine 0.9 mg/dL (0.55-1.02) D 09/22/16 00:26 Creat Clearance w eGFR > 60 (>60) 09/22/16 00:26 Random Glucose 197 mg/dL (74-106) H 09/22/16 00:26 Calcium 8.2 mg/dL (8.5-10.1) L 09/22/16 00:26 Total Bilirubin 0.6 mg/dL (0.2-1.0) D 09/22/16 00:26 AST 10 U/L (15-37) L D 09/22/16 00:26 ALT 19 U/L (12-78) D 09/22/16 00:26 Alkaline Phosphatase 75 U/L (45-117) 09/22/16 00:26 Total Protein 6.2 g/dl (6.4-8.2) L 09/22/16 00:26 Albumin 3.1 g/dl (3.4-5.0) L 09/22/16 00:26 CARDIAC ENZYMES Creatine Kinase 45 IU/L (26-192) 09/22/16 00:26 Troponin I < 0.02 ng/ml (0.00-0.05) 09/22/16 00:26 EKG: NSR 70 Qtc 447, no acute St-t changes q waves septal leads CXR: No Acute Process Intake & Output 09/19/16 09/20/16 09/21/16 09/22/16 23:59 23:59 23:59 23:59 Weight 81.193 kg Home Medications Medication Instructions Recorded Atorvastatin Ca [Lipitor] 40 mg PO HS tablet 11/12/15 Furosemide [Lasix -] 20 mg PO DAILY tablet 11/12/15 Metformin HCl [Glucophage -] 500 mg PO BIDI tablet 11/12/15 Metoprolol Succinate [Toprol XL -] 50 mg PO DAILY tab.sr.24h 11/12/15 Ranitidine [Zantac -] 150 mg PO BID tablet 11/12/15 Sertraline HCl [Zoloft -] 25 mg PO DAILY tablet 11/12/15 Apixaban [Eliquis] 5 mg PO BID 12/22/15 Diltiazem Cd [Cardizem Cd -] 360 mg PO DAILY #60 cap.cd.24h 03/25/16 ASSESSMENT AND PLAN: 71 yo f with pmhx of Afib, CAD S/P Stents 09, DMII, CVA, Brain aneurysm s/p clipping, htn, and hld who presents with chest pain 1.) Chest Pain - RO ACS - Trend Trop/EKG - HEART 4 - ASA - C/W Home meds 2.) CAD - C/W home meds 3.) DM II - FS - RAISS - C/W home meds - Daibetic diet 4.) Afib - In normal sinus - C/W home meds on A/C Eliquis 5.) DVT Ppx -Heparin 5000 q8- Mod risk Place in Obs Tele
--- NOTE | 2016-09-22 02:04 | HP ---
CHIEF COMPLAINT: Chest pain radiating to left shoulder. PCP: Dr Lund HISTORY OF PRESENT ILLNESS: Patient is 71 Year old white female with PMH of HTN, DM, HLD, AFIB, status post Cabg 2008,CVA, Brain aneurysm clipped , who presented to the ED with mid sternal chest pain 5/10 ,sharp, radiating to the left shoulder. The pain started yesterday at 5 pm and lasted for 20 min, non-positional, that worsened with movement. The pain returned around 7 pm then her daughter called EMS. Patient reports nausea but no vomiting. Patient also states having a dry cough for the last couple days with stuffy nose. Patient denies any SOB, palpitation, light headedness, fever, chills, abdominal pain, D/C. She has urinary incontinence and she is using diapers constantly.She denies any burning sensation frequency and hematuria. ER course was notable for: (1) EKG: sinus rhythm, no ST, T wave changes (2)CXR: No acute pathology (3) TROP 0.02 Recent Travel: No PAST MEDICAL HISTORY: HTN, DM,HLD, AFIB, stent place in 2008, CVA, brain aneurysm clipped PAST SURGICAL HISTORY: Brain [id number] , Stent 2008. Social History: Smoking: previous smoker 1 ppk /30years . she quit 30 years ago Alcohol:None Drugs: None Family History: Mother diseased from stroke, had HTN, DM. Father from heart attach. Allergies pregabalin [From Lyrica] Allergy (Intermediate, Verified 09/21/16 22:05) budesonide [From Symbicort] Allergy (Verified 09/21/16 22:05) celecoxib [From Celebrex] Allergy (Verified 09/21/16 22:05) formoterol fumarate [From Symbicort] Allergy (Verified 09/21/16 22:05) sulfacetamide sodium [From Sulfamide] Allergy (Verified 09/21/16 22:05) HOME MEDICATIONS: Home Medications Medication Instructions Recorded Atorvastatin Ca [Lipitor] 40 mg PO HS tablet 11/12/15 Furosemide [Lasix -] 20 mg PO DAILY tablet 11/12/15 Metformin HCl [Glucophage -] 500 mg PO BIDI tablet 11/12/15 Metoprolol Succinate [Toprol XL -] 50 mg PO DAILY tab.sr.24h 11/12/15 Ranitidine [Zantac -] 150 mg PO BID tablet 11/12/15 Sertraline HCl [Zoloft -] 25 mg PO DAILY tablet 11/12/15 Apixaban [Eliquis] 5 mg PO BID 12/22/15 Diltiazem Cd [Cardizem Cd -] 360 mg PO DAILY #60 cap.cd.24h 03/25/16 REVIEW OF SYSTEMS CONSTITUTIONAL: Absent: fever, chills, diaphoresis, generalized weakness, malaise, loss of appetite, weight change HEENT: Absent: rhinorrhea, nasal congestion, throat pain, throat swelling, difficulty swallowing, mouth swelling, ear pain, eye pain, visual changes CARDIOVASCULAR: Absent: chest pain, syncope, palpitations, irregular heart rate, lightheadedness , peripheral edema RESPIRATORY: Absent: cough, shortness of breath, dyspnea with exertion, orthopnea, wheezing, stridor, hemoptysis GASTROINTESTINAL: Absent: abdominal pain, abdominal distension, nausea, vomiting, diarrhea, constipation, melena, hematochezia GENITOURINARY: Absent: dysuria, frequency, urgency, hesitancy, hematuria, flank pain, genital pain MUSCULOSKELETAL: Absent: myalgia, arthralgia, joint swelling, back pain, neck pain SKIN: Absent: rash, itching, pallor HEMATOLOGIC/IMMUNOLOGIC: Absent: easy bleeding, easy bruising, lymphadenopathy, frequent infections ENDOCRINE: Absent: unexplained weight gain, unexplained weight loss, heat intolerance, cold intolerance NEUROLOGIC: Absent: headache, focal weakness or paresthesias, dizziness, unsteady gait, seizure, mental status changes, bladder or bowel incontinence PSYCHIATRIC: Absent: anxiety, depression, suicidal or homicidal ideation, hallucinations. PHYSICAL EXAMINATION Vital Signs - 24 hr 09/21/16 22:06 Temperature 97.7 F Pulse Rate 78 Respiratory 16 Rate Blood Pressure 155/83 O2 Sat by Pulse 98 Oximetry (%) GENERAL: Awake, alert, and fully oriented, in no acute distress. HEAD: Normal with no signs of trauma. EYES: Pupils equal, round and reactive to light, extraocular movements intact, sclera anicteric, conjunctiva clear. No lid lag. EARS, NOSE, THROAT: Ears normal, nares patent, oropharynx clear without exudates. Moist mucous membranes. NECK: Normal range of motion, supple without lymphadenopathy, JVD, or masses. LUNGS: Breath sounds equal, clear to auscultation bilaterally. No wheezes, and no crackles. No accessory muscle use. HEART: Regular rate and rhythm, normal S1 and S2 without murmur, rub or gallop. ABDOMEN: Soft, nontender, not distended, normoactive bowel sounds, no guarding, no rebound, no masses. No hepatomegaly or splenomegaly. MUSCULOSKELETAL: Normal range of motion at all joints. No bony deformities or tenderness. No CVA tenderness. UPPER EXTREMITIES: 2+ pulses, warm, well-perfused. No cyanosis. No clubbing. No peripheral edema. LOWER EXTREMITIES: 2+ pulses, warm, well-perfused. No calf tenderness. No peripheral edema. NEUROLOGICAL: Cranial nerves II-XII intact. Normal speech. Normal gait. PSYCHIATRIC: Cooperative. Good eye contact. Appropriate mood and affect. SKIN: Warm, dry, normal turgor, no rashes or lesions noted, normal capillary refill. Laboratory Results - last 24 hr 09/21/16 09/21/16 09/21/16 23:02 23:02 23:02 WBC 10.1 H D RBC 4.75 Hgb 14.4 Hct 43.0 MCV 90.5 MCH 30.3 MCHC 33.5 RDW 14.3 Plt Count 181 MPV 8.8 D Neutrophils % 76.9 D Lymphocytes % 12.7 D Monocytes % 8.2 Eosinophils % 1.4 Basophils % 0.8 INR 1.11 Sodium Cancelled Potassium Cancelled Chloride Cancelled Carbon Dioxide Cancelled Anion Gap Cancelled BUN Cancelled Creatinine Cancelled Creat Clearance w eGFR Cancelled Random Glucose Cancelled Calcium Cancelled Magnesium Cancelled Total Bilirubin Cancelled AST Cancelled ALT Cancelled Alkaline Phosphatase Cancelled Creatine Kinase Cancelled Troponin I Cancelled B-Natriuretic Peptide Cancelled Total Protein Cancelled Albumin Cancelled 09/22/16 00:26 WBC RBC Hgb Hct MCV MCH MCHC RDW Plt Count MPV Neutrophils % Lymphocytes % Monocytes % Eosinophils % Basophils % INR Sodium 139 Potassium 3.8 Chloride 104 Carbon Dioxide 27 Anion Gap 8 BUN 17 Creatinine 0.9 D Creat Clearance w eGFR > 60 Random Glucose 197 H Calcium 8.2 L Magnesium Total Bilirubin 0.6 D AST 10 L D ALT 19 D Alkaline Phosphatase 75 Creatine Kinase 45 Troponin I < 0.02 B-Natriuretic Peptide Total Protein 6.2 L Albumin 3.1 L CBC, BMP 09/21/16 23:02 09/22/16 00:26 EKG:normal sinus rhythm at 70 bpm CXR :No acute pathology ASSESSMENT/PLAN: Patient is 71 Year old white female with PMH of HTN, DM, HLD, AFIB, status post CABG 2008,CVA Brain aneurysm clipped , who presented to the ED with mid sternal chest pain 5/10 ,sharp, radiating to the left shoulder, she is admitted for observation to R/o ACD. 1- Chest pain ,Acute , possibly ACS * Heart score of 4 * EKG sinus rhythm with no ST, T wave changes * CXR with no acute pathology * Trop I- 0.02 ,trend * Aspirin 162 mg was given in ED, * continue home meds Metoprolo 50 PO daily, Furosemide 20 mg Po daily .Diltiazem CD 360 mg PO daily.Atorvastatin 40 mg Po Daily. 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 * low sodium diet * * 4- DMII on metformin at home * FS * RAISS * Diabetic Diet # Afib * In normal sinus * Continue home meds on A/C Eliquis 5 mg PO BID #Depression: Continue Home med Sertraline 25 mg PO daily # morbid Obesity * Patient counselling * Consider bariatric Surgery in the future * #Proph VTE High risk * SCDS * On Eliqus 5 mg PO BID # F/E/N * No fluid need at this time * Electrolytes WNL * diabetic and low sodium diet * * # Dispo * Admit for observation * Full code
[2016-09-22] MEDS ORDERED: ACETAMINOPHEN 325 MG TABLET (FP) PO PRN (02:09)
[2016-09-22] MEDS ORDERED: HEMOQUE CONTROL SOLUTION ONE (03:26)
[2016-09-22] MEDS: ACETAMINOPHEN WITH CODEINE 300MG/30MG TABLET PO ONE ×2 (03:40)
[2016-09-22] MEDS ORDERED: ACETAMINOPHEN WITH CODEINE 300MG/30MG TABLET ONE (04:16)
[2016-09-22] MEDS ORDERED: HEPARIN NA (PORCINE) 5,000 UNITS/ML 1ML VIAL SQ SCH (10:00)
[2016-09-22] MEDS: METOPROLOL SUCCINATE 50 MG TAB.SR.24H (FP) PO SCH (10:28)
[2016-09-22] MEDS: APIXABAN 5 MG TABLET PO SCH ×2 (10:28→22:06)
[2016-09-22] MEDS: RANITIDINE HCL 150 MG TABLET (FP) PO SCH ×2 (10:28→22:06)
[2016-09-22] MEDS: FUROSEMIDE 20 MG TABLET (FP) PO SCH (10:28)
[2016-09-22] MEDS: SERTRALINE HCL 25 MG TABLET (FP) PO SCH (10:28)
--- NOTE | 2016-09-22 12:23 | CON.CARD ---
Consult Consult Specialty:: Cardiology Reason for Consultation:: chest pain - History of Present Illness History of Present Illness: The patient is a 71 year old obese female with a significant past medical history of AFIB, stent placed in 2008, CVA, brain aneurysm clipped, umbilical hernia, HTN, and HLD, who presents to the ED with achy chest pain that began at 5 PM today. Patient states the chest pain radiated to the back of both shoulders. She describes the pain as 5/10 in severity. PMH ASHD promus stent pLAD 2008 Atrial fibrillation 2015 CHF diastolic DM GERD HHD HTN Hyperlipidemia Morbid obesity Negative MIBI ST September 2011, March 2015 - History Source History Provided By: Patient, Medical Record - Past Medical History Cardio/Vascular: Yes: CAD, HTN, Hyperlipdemia, Other (PSVT in 2011) Pulmonary: Yes: Sleep Apnea (risks for FRANSISCA) Renal/: Yes: Renal Inusuff Psych: Yes: Anxiety Endocrine: Yes: Diabetes Mellitus Additional Medical History: Condition Date Treating Physician Comments. ASHD promus stent pLAD 2008. CHF diastolic. DM. GERD. HHD. HTN. Hyperlipidemia. Morbid obesity. Negative MIBI ST September 2011 And May 2013. SVT - Past Surgical History Past Surgical History: Yes: Stent - Alcohol/Substance Use Hx Alcohol Use: No - Smoking History Smoking history: Never smoked Have you smoked in the past 12 months: No Aproximately how many cigarettes per day: 0 If you are a former smoker, when did you quit?: 40 yrs - Social History Usual Living Arrangement: Other (with nephew; her daughter is close to her) History of Recent Travel: No Home Medications - Allergies Allergies/Adverse Reactions: Allergies Allergy/AdvReac Type Severity Reaction Status Date / Time pregabalin [From Lyrica] Allergy Intermediate Verified 09/21/16 22:05 budesonide [From Symbicort] Allergy Verified 09/21/16 22:05 celecoxib [From Celebrex] Allergy Verified 09/21/16 22:05 formoterol fumarate Allergy Verified 09/21/16 22:05 [From Symbicort] sulfacetamide sodium Allergy Verified 09/21/16 22:05 [From Sulfamide] - Home Medications Home Medications: Ambulatory Orders Atorvastatin Ca [Lipitor] 40 mg PO HS tablet 11/12/15 Furosemide [Lasix -] 20 mg PO DAILY tablet 11/12/15 Metformin HCl [Glucophage -] 500 mg PO BIDI tablet 11/12/15 Metoprolol Succinate [Toprol XL -] 50 mg PO DAILY tab.sr.24h 11/12/15 Ranitidine [Zantac -] 150 mg PO BID tablet 11/12/15 Sertraline HCl [Zoloft -] 25 mg PO DAILY tablet 11/12/15 Apixaban [Eliquis] 5 mg PO BID 12/22/15 Diltiazem Cd [Cardizem Cd -] 360 mg PO DAILY #60 cap.cd.24h 03/25/16 Review of Systems - Review of Systems Constitutional: reports: No Symptoms Eyes: reports: No Symptoms HENT: reports: No Symptoms Neck: reports: No Symptoms Cardiovascular: reports: Chest Pain Gastrointestinal: reports: No Symptoms Genitourinary: reports: No Symptoms Breasts: reports: No Symptoms Reported Musculoskeletal: reports: No Symptoms Integumentary: reports: No Symptoms Neurological: reports: No Symptoms Endocrine: reports: No Symptoms Hematology/Lymphatic: reports: No Symptoms Psychiatric: reports: No Symptoms Vital Signs: Vital Signs Temperature 97.7 F 09/21/16 22:06 Pulse Rate 62 09/22/16 09:13 Respiratory Rate 18 09/22/16 09:13 Blood Pressure 108/68 09/22/16 09:13 O2 Sat by Pulse Oximetry (%) 96 09/22/16 09:13 Constitutional: Yes: Well Nourished, No Distress, Calm Eyes: Yes: WNL, Conjunctiva Clear, EOM Intact HENT: Yes: WNL, Atraumatic, Normocephalic Neck: Yes: WNL, Supple, Trachea Midline Respiratory: Yes: WNL, Regular, CTA Bilaterally Gastrointestinal: Yes: WNL, Normal Bowel Sounds Renal/: Yes: WNL Cardiovascular: Yes: WNL, Regular Rate and Rhythm Musculoskeletal: Yes: WNL Extremities: Yes: WNL Integumentary: Yes: WNL Neurological: Yes: WNL, Alert, Oriented ...Motor Strength: WNL Psychiatric: Yes: WNL, Alert, Oriented - Other Data Labs, Other Data: INR, PTT INR 1.11 (0.82-1.09) 09/21/16 23:02 Troponin, BNP 09/22/16 09/22/16 07:01 11:33 Troponin I 0.02 < 0.02 Troponin, BNP 09/22/16 09/22/16 07:01 11:33 Troponin I 0.02 < 0.02 Laboratory Tests 09/21/16 09/21/16 09/21/16 23:02 23:02 23:02 WBC 10.1 H D RBC 4.75 Hgb 14.4 Hct 43.0 MCV 90.5 MCH 30.3 MCHC 33.5 RDW 14.3 Plt Count 181 MPV 8.8 D Neutrophils % 76.9 D Lymphocytes % 12.7 D Monocytes % 8.2 Eosinophils % 1.4 Basophils % 0.8 INR 1.11 Sodium Cancelled Potassium Cancelled Chloride Cancelled Carbon Dioxide Cancelled Anion Gap Cancelled BUN Cancelled Creatinine Cancelled Creat Clearance w eGFR Cancelled POC Glucometer Random Glucose Cancelled Calcium Cancelled Magnesium Cancelled Total Bilirubin Cancelled AST Cancelled ALT Cancelled Alkaline Phosphatase Cancelled Creatine Kinase Cancelled Troponin I Cancelled B-Natriuretic Peptide Cancelled Total Protein Cancelled Albumin Cancelled 09/22/16 09/22/16 09/22/16 00:26 03:47 07:01 WBC RBC Hgb Hct MCV MCH MCHC RDW Plt Count MPV Neutrophils % Lymphocytes % Monocytes % Eosinophils % Basophils % INR Sodium 139 Potassium 3.8 Chloride 104 Carbon Dioxide 27 Anion Gap 8 BUN 17 Creatinine 0.9 D Creat Clearance w eGFR > 60 POC Glucometer 145.21999 Random Glucose 197 H Calcium 8.2 L Magnesium Total Bilirubin 0.6 D AST 10 L D ALT 19 D Alkaline Phosphatase 75 Creatine Kinase 45 Troponin I < 0.02 0.02 B-Natriuretic Peptide Total Protein 6.2 L Albumin 3.1 L 09/22/16 11:33 WBC RBC Hgb Hct MCV MCH MCHC RDW Plt Count MPV Neutrophils % Lymphocytes % Monocytes % Eosinophils % Basophils % INR Sodium Potassium Chloride Carbon Dioxide Anion Gap BUN Creatinine Creat Clearance w eGFR POC Glucometer Random Glucose Calcium Magnesium Total Bilirubin AST ALT Alkaline Phosphatase Creatine Kinase Troponin I < 0.02 B-Natriuretic Peptide Total Protein Albumin Imaging - Results Chest X-ray: Image Reviewed (no i/e) EKG: Image Reviewed (sr old ant septal mi no st twave changes) Problem List - Problems (1) Bilateral swelling of feet Code(s): M79.89 - OTHER SPECIFIED SOFT TISSUE DISORDERS (2) Chest pain Code(s): R07.9 - CHEST PAIN, UNSPECIFIED Qualifiers: Chest pain type: unspecified Qualified Code(s): R07.9 - Chest pain, unspecified (3) Diabetes Code(s): E11.9 - TYPE 2 DIABETES MELLITUS WITHOUT COMPLICATIONS Qualifiers: Diabetes mellitus type: type 2 Diabetes mellitus complication status: with hyperosmolarity Diabetes mellitus complication detail: without coma Diabetes mellitus 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 driver insulin use: without 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 truck driver use Qualified Code(s): E11.00 - Type 2 diabetes mellitus with hyperosmolarity without nonketotic hyperglycemic-hyperosmolar coma (NKHHC); Z79.4 - intermediate card tender ( current) use of insulin (4) Morbid obesity Code(s): E66.01 - MORBID (SEVERE) OBESITY DUE TO EXCESS CALORIES (5) SVT (supraventricular tachycardia) Code(s): I47.1 - SUPRAVENTRICULAR TACHYCARDIA (6) Arm pain Code(s): M79.603 - PAIN IN ARM, UNSPECIFIED (7) COPD (chronic obstructive pulmonary disease) Code(s): J44.9 - CHRONIC OBSTRUCTIVE PULMONARY DISEASE, UNSPECIFIED (8) Cellulitis Code(s): L03.90 - CELLULITIS, UNSPECIFIED Qualifiers: Site of cellulitis: extremity Site of cellulitis of extremity: lower extremity Laterality: left Qualified Code(s): L03.116 - Cellulitis of left lower limb (9) HTN (hypertension), benign Code(s): I10 - ESSENTIAL (PRIMARY) HYPERTENSION (10) Hyperlipidemia Code(s): E78.5 - HYPERLIPIDEMIA, UNSPECIFIED (11) Obesity Code(s): E66.9 - OBESITY, UNSPECIFIED (12) Paroxysmal SVT (supraventricular tachycardia) Code(s): I47.1 - SUPRAVENTRICULAR TACHYCARDIA (13) Paroxysmal atrial fibrillation Code(s): I48.0 - PAROXYSMAL ATRIAL FIBRILLATION (14) Severe sepsis Code(s): A41.9 - SEPSIS, UNSPECIFIED ORGANISM R65.20 - SEVERE SEPSIS WITHOUT SEPTIC SHOCK (15) Shingles Code(s): B02.9 - ZOSTER WITHOUT COMPLICATIONS (16) Sleep apnea Code(s): G47.30 - SLEEP APNEA, UNSPECIFIED Assessment/Plan Atypical CP r/o NM neg ekg unchanged cp free now ASHD promus stent pLAD 2008 Atrial fibrillation 2015 CHF diastolic DM GERD HHD HTN Hyperlipidemia Morbid obesity Negative MIBI ST September 2011, March 2015 Plan cont ac cont bb if stable next 24 hrs MIBI stress test as the outpatient
[2016-09-22] MEDS: INSULIN SLIDING SCALE (NOVOLOG) 1 VIAL SQ SCH ×4 (12:29→22:03)
--- NOTE | 2016-09-22 12:35 | EKG ---
Test Reason : Blood Pressure : / mmHG Vent. Rate : 070 BPM Atrial Rate : 070 BPM P-R Int : 154 ms QRS Dur : 082 ms QT Int : 414 ms P-R-T Axes : 049 -28 048 degrees QTc Int : 447 ms NORMAL SINUS RHYTHM WITH SINUS ARRHYTHMIA CANNOT RULE OUT SEPTAL INFARCT (CITED ON OR BEFORE 23-MAR-2016) ABNORMAL ECG WHEN COMPARED WITH ECG OF 23-MAR-2016 21:32, T WAVE INVERSION NOW EVIDENT IN LATERAL LEADS Confirmed by NADIA COLLINS MD ([id number]) on 09/22/2016 12:35:17 PM Referred By: Confirmed By:NADIA COLLINS MD
--- NOTE | 2016-09-22 14:24 | PN ---
Teaching Attending Note Name of Resident: Ginny Richard ATTENDING PHYSICIAN STATEMENT I saw and evaluated the patient. I reviewed the resident's note and discussed the case with the resident. I agree with the resident's findings and plan as documented. SUBJECTIVE: Patient denies chest pain, palpitations, shortness of breath. OBJECTIVE: Vital Signs Period Temp Pulse Resp BP Sys/Bowen Pulse Ox Last 24 Hr 97.7 F 62-78 16-18 108-155/68-83 96-98 HEART: S1S2, RRR LUNGS: Clear ABDOMEN: Obese, soft, non-tender, non-distended, normal BS EXTREMITIES: No edema ASSESSMENT AND PLAN: This is a 71-year-old woman with a history of CAD, stent, chronic diastolic heart failure, HTN, hyperlipidemia, PAF, type 2 DM, morbid obesity, depression who presented to the ER with chest pain. 1. Chest pain - Continue to monitor on telemetry - Resolved - Troponin negative x 3 - Cardiology consult appreciated 2. CAD, history of stent - Continue Toprol XL, Lipitor 3. HTN - Continue Toprol XL, Cardizem CD, Lasix 4. Hyperlipidemia - Continue Lipitor 5. Type 2 DM - Metformin held - Continue Novolog sliding scale 6. Paroxysmal atrial fibrillation - Currently in sinus rhythm - Continue Toprol XL, Cardizem CD, Eliquis 7. Chronic diastolic heart failure - Stable - Continue Lasix 8. Depression - Continue Zoloft 9. Morbid obesity
--- NOTE | 2016-09-22 16:53 | PN ---
Physical Exam: SUBJECTIVE: Patient seen and examined at bedside. Patient denies chest pain and is resting comfortably,supine. No acute events overnight. OBJECTIVE: Vital Signs Period Temp Pulse Resp BP Sys/Bowen Pulse Ox Last 24 Hr 62 18-18 108/68 96 GENERAL: obese female, awake, alert, and fully oriented, in no acute distress. HEAD: Normal with no signs of trauma. EYES: PERRL, extraocular movements intact, sclera anicteric, conjunctiva clear. No ptosis. NECK: Trachea midline, full range of motion, supple. LUNGS: Breath sounds equal, clear to auscultation bilaterally, no wheezes, no crackles, no accessory muscle use. HEART: Regular rate and rhythm, S1, S2 without murmur, rub or gallop. ABDOMEN: Soft, nontender, nondistended, normoactive bowel sounds, no guarding, no rebound EXTREMITIES: 2+ posterior tibial pulses, warm, well-perfused, no edema. Laboratory Results - last 24 hr 09/22/16 09/22/16 09/22/16 03:47 07:01 11:33 POC Glucometer 145.92725 Troponin I 0.02 < 0.02 09/22/16 12:10 POC Glucometer 167.89501 Troponin I Active Medications Generic Name Dose Route Start Last Admin Trade Name Freq PRN Reason Stop Dose Admin Acetaminophen 650 mg 09/22/16 02:09 Tylenol - PO Q4H PRN FEVER OR PAIN Apixaban 5 mg 09/22/16 10:00 09/22/16 10:28 Eliquis - PO 5 mg BID BRUCE Administration Atorvastatin Calcium 40 mg 09/22/16 22:00 Lipitor - PO HS BRUCE Diltiazem HCl 360 mg 09/22/16 10:00 09/22/16 10:28 Cardizem Cd - PO 360 mg DAILY BRUCE Administration Furosemide 20 mg 09/22/16 10:00 09/22/16 10:28 Lasix - PO 20 mg DAILY BRUCE Administration Insulin Aspart 1 vial 09/22/16 07:00 09/22/16 14:01 Novolog Vial Sliding Scale - SQ Not Given ACHS BRUCE Protocol Metoprolol Succinate 50 mg 09/22/16 10:00 09/22/16 10:28 Toprol Xl - PO 50 mg DAILY BRUCE Administration Ranitidine HCl 150 mg 09/22/16 10:00 09/22/16 10:28 Zantac - PO 150 mg BID BRUCE Administration Sertraline HCl 25 mg 09/22/16 10:00 09/22/16 10:28 Zoloft - PO 25 mg DAILY BRUCE Administration ASSESSMENT/PLAN: Patient is 71 Year old female with PMH of HTN, DM, HLD, AFIB, s/p CABG 2008,CVA Brain aneurysm-clip, who presented to the ED with chest pain. Pt admitted to obs for chest pain r/o ACS. 1- Chest pain r/o ACS- resolved * Heart score of 4 * EKG sinus rhythm with no ST, T wave changes * CXR with no acute pathology * Troponins negative x3 * continue Metoprolol 50 PO daily, Furosemide 20 mg PO daily .Diltiazem 360 mg PO daily, Atorvastatin 40 mg PO Daily. 2- HTN , chronic- currently controlled * Most recent BP: 108/68 * will continue home meds Metoprolol 50 PO daily, Furosemide 20 mg Po daily .Diltiazem CD 360 mg PO daily. * low sodium diet 3. DM - Novolog- 2 units received today -Glucose today: 167 -Continue to monitor Visit type - Emergency Visit Emergency Visit: Yes ED Registration Date: 09/22/16 Care time: The patient presented to the Emergency Department on the above date and was hospitalized for further evaluation of their emergent condition. - New Patient This patient is new to me today: Yes Date on this admission: 09/22/16 - Critical Care Critical Care patient: No - Discharge Referral Referred to [facility] Med P.C.: No
[2016-09-22] MEDS ORDERED: ATORVASTATIN CA 40 MG TABLET (FP) PO SCH (22:00)
[2016-09-23] MEDS: INSULIN SLIDING SCALE (NOVOLOG) 1 VIAL SQ SCH ×3 (06:10→17:03)
[2016-09-23 08:57] LABS: CHOLESTEROL 196 mg/dL (50-200); LDL CHOLESTEROL (ONLY SJRH) 128 mg/dL (5-100)
[2016-09-23 09:34] LABS: TROPONIN I < 0.02 ng/ml (0.00-0.05)
[2016-09-23] MEDS: RANITIDINE HCL 150 MG TABLET (FP) PO SCH (09:54)
[2016-09-23] MEDS: SERTRALINE HCL 25 MG TABLET (FP) PO SCH (09:54)
[2016-09-23] MEDS: METOPROLOL SUCCINATE 50 MG TAB.SR.24H (FP) PO SCH (09:54)
[2016-09-23] MEDS: APIXABAN 5 MG TABLET PO SCH (09:54)
[2016-09-23] MEDS: FUROSEMIDE 20 MG TABLET (FP) PO SCH (09:54)
--- NOTE | 2016-09-23 12:08 | PN ---
Progress Note, Physician Chief Complaint: Pt sitting up at bedside, eating lunch. Asymptomatic. History of Present Illness: The patient is a 71 year old white female with a significant past medical history of AFIB, stent placed in 2008, CVA, brain aneurysm clipped, morbid obesity, umbilical hernia, HTN, and HLD, who presents to the ED with achy chest pain that began at 5 PM today. Patient states the chest pain radiated to the back of both shoulders. She describes the pain as 5/10 in severity. She denies SOB, palpitations, fever, chills, nausea, vomiting, diarrhea. She denies dysuria, frequency, hematuria. - Current Medication List Current Medications: Active Medications Acetaminophen (Tylenol -) 650 mg PO Q4H PRN PRN Reason: FEVER OR PAIN Apixaban (Eliquis -) 5 mg PO BID [facility] Last Admin: 09/23/16 09:54 Dose: 5 mg Atorvastatin Calcium (Lipitor -) 40 mg PO HS [facility] Last Admin: 09/22/16 22:06 Dose: 40 mg Diltiazem HCl (Cardizem Cd -) 360 mg PO DAILY [facility] Last Admin: 09/23/16 09:54 Dose: 360 mg Furosemide (Lasix -) 20 mg PO DAILY [facility] Last Admin: 09/23/16 09:54 Dose: 20 mg Insulin Aspart (Novolog Vial Sliding Scale -) 1 vial SQ ACHS [facility] PRN Reason: Protocol Last Admin: 09/23/16 11:58 Dose: Not Given Metoprolol Succinate (Toprol Xl -) 50 mg PO DAILY [facility] Last Admin: 09/23/16 09:54 Dose: 50 mg Ranitidine HCl (Zantac -) 150 mg PO BID [facility] Last Admin: 09/23/16 09:54 Dose: 150 mg Sertraline HCl (Zoloft -) 25 mg PO DAILY [facility] Last Admin: 09/23/16 09:54 Dose: 25 mg - Objective Vital Signs: Vital Signs Temperature 98 F 09/23/16 09:00 Pulse Rate 60 09/23/16 09:00 Respiratory Rate 18 09/23/16 09:00 Blood Pressure 136/94 09/23/16 09:00 O2 Sat by Pulse Oximetry (%) 94 L 09/22/16 19:00 Constitutional: Yes: Well Nourished, Calm Eyes: Yes: WNL HENT: Yes: WNL Neck: Yes: WNL Cardiovascular: Yes: Pulse Irregular Respiratory: Yes: Regular Gastrointestinal: Yes: Soft, Abdomen, Obese ...Rectal Exam: Yes: Deferred Genitourinary: No: Anuria Breast(s): Yes: WNL Musculoskeletal: Yes: Joint Stiffness, Muscle Weakness Extremities: Yes: Cool Edema: Yes Edema: LLE: Trace, RLE: Trace Peripheral Pulses WNL: No Peripheral Pulses: Left Doralis Pedis: 1+, Right Dorsalis Pedis: 1+ Integumentary: Yes: WNL Neurological: Yes: Alert, Oriented, Weakness Psychiatric: Yes: WNL Labs: INR, PTT INR 1.11 (0.82-1.09) 09/21/16 23:02 Abnormal Lab Results 09/23/16 05:55 Total LDL Cholesterol 128 H - ....Imaging Chest X-ray: Image Reviewed (no acute pathology) EKG: Image Reviewed (NSR; sinus arrhythmia) Problem List - Problems (1) Chest pain Assessment/Plan: atypical presentation. TNI serially < 0.02. EKG: no acute STT changes. Pt refuses to undergo stress test in hospital; will plan as outpatient. 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 Would add ACEI or ARB for HTN and DM. Code(s): I10 - ESSENTIAL (PRIMARY) HYPERTENSION (6) Hyperlipidemia Code(s): E78.5 - HYPERLIPIDEMIA, UNSPECIFIED (7) Paroxysmal atrial fibrillation Assessment/Plan: On diltiazem CD and metoprolol for HR control, and apixaban. Code(s): I48.0 - PAROXYSMAL ATRIAL FIBRILLATION
[2016-09-23 14:04] VITALS: BP 107/62; PULSE 48; TEMP 98.9
--- NOTE | 2016-09-23 16:14 | DS ---
Physical Exam: SUBJECTIVE: Patient seen and examined at bedside.No acute events overnight. Patient resting comfortably, sitting up, denies chest pain, SOB. OBJECTIVE: Vital Signs Period Temp Pulse Resp BP Sys/Bowen Pulse Ox Last 24 Hr 97.8 F-99.2 F 48-68 18-20 107-147/62-94 94-95 PHYSICAL EXAM GENERAL: The patient is awake, alert, and fully oriented, in no acute distress. HEAD: Normal with no signs of trauma. EYES: PERRL, extraocular movements intact, sclera anicteric, conjunctiva clear. ENT: Ears normal, nares patent, oropharynx clear without exudates, moist mucous membranes. NECK: Trachea midline, full range of motion, supple. LUNGS: Breath sounds equal, clear to auscultation bilaterally, no wheezes, no crackles, no accessory muscle use. HEART: Regular rate and rhythm, S1, S2 without murmur, rub or gallop. ABDOMEN: Soft, nontender, nondistended, normoactive bowel sounds, no guarding, no rebound, no hepatosplenomegaly, no masses. EXTREMITIES: 2+ pulses, warm, well-perfused, no edema. NEUROLOGICAL: Cranial nerves II through XII grossly intact. Normal speech, gait not observed. PSYCH: Normal mood, normal affect. SKIN: Warm, dry, normal turgor, no rashes or lesions noted. LABS Laboratory Tests 09/22/16 09/22/16 09/22/16 07:01 11:33 12:10 POC Glucometer 167.49172 Troponin I 0.02 < 0.02 Triglycerides Cholesterol Total LDL Cholesterol HDL Cholesterol 09/22/16 09/22/16 09/23/16 16:57 22:01 05:46 POC Glucometer 130 158 137 Troponin I Triglycerides Cholesterol Total LDL Cholesterol HDL Cholesterol 09/23/16 09/23/16 05:55 11:56 POC Glucometer 129 Troponin I < 0.02 Triglycerides 121 Cholesterol 196 D Total LDL Cholesterol 128 H HDL Cholesterol 50 D Testing EKG: sinus rhythm CXR: within normal limits Troponins: negative x3 HOSPITAL COURSE: Date of Admission:09/22/16 Date of Discharge: 09/23/16 Admit diagnosis: chest pain r/o ACS Pre-admission course: Patient is 71 Year old female with PMH of HTN, DM, HLD, AFIB, s/p CABG 2009,CVA , Brain aneurysm-clipped , who presented to the ED with mid-sternal chest pain that began at 5pm on 09/21/16. As per patient, it was 5/10 ,sharp, radiated to her left shoulder and lasted for 20 min. The pain worsened with movement and later returned around 7 pm. This prompted the patient's daughter to call EMS. Patient reported nausea without vomiting. During this time, she has also had a dry cough and stuffy nose. She denied any SOB, palpitations, light headedness, fever, chills, abdominal pain. ER course was notable for: (1) EKG: sinus rhythm, no ST, T wave changes (2)CXR: No acute pathology (3) Negative first troponin Hospital course: During the patient's hospital stay, her chest pain was explored to rule out ACS. Troponins were trended, all of which returned negative values. She was continued on her home medications of: Metoprolol 50 mg PO daily, furosemide 20 mg PO daily,diltiazem 360 mg PO daily, and atorvastatin 40mg PO daily. Her hypertension was also monitored and alleviated through these medications, and she was placed on a low sodium diet for further maintenance. As per cardiology, after discharge, she is to follow-up with a MIBI stress test as outpatient. Minutes to complete discharge: 32 Discharge Summary Reason For Visit: CHEST PAIN BILATERAL SWELLING OF FEET Current Active Problems Chest pain (Acute) Morbid obesity (Acute) Diabetes (Chronic) SVT (supraventricular tachycardia) (Chronic) Condition: Stable - Instructions Diet, Activity, Other Instructions: You were recently in the hospital for chest pain. You may resume activity as tolerated. Please follow up with a catalytic case operator, Dr. Pierre, in 1 week to discuss stress testing as an outpatient procedure. We also suggest that you follow up with your primary care physician in 1 week. You may continue your home medications. If you become short of breath, or have significant chest pain, or any new symptoms, please go to the hospital. Disposition: HOME - Home Medications Comprehensive Discharge Medication List: Ambulatory Orders Atorvastatin Ca [Lipitor] 40 mg PO HS tablet 11/12/15 Furosemide [Lasix -] 20 mg PO DAILY tablet 11/12/15 Metformin HCl [Glucophage -] 500 mg PO BIDI tablet 11/12/15 Metoprolol Succinate [Toprol XL -] 50 mg PO DAILY tab.sr.24h 11/12/15 Ranitidine [Zantac -] 150 mg PO BID tablet 11/12/15 Sertraline HCl [Zoloft -] 25 mg PO DAILY tablet 11/12/15 Apixaban [Eliquis] 5 mg PO BID 12/22/15 Diltiazem Cd [Cardizem Cd -] 360 mg PO DAILY #60 cap.cd.24h 03/25/16 This patient is new to me today: No Emergency Visit: No Critical Care patient: No - Discharge Referral Referred to [facility] Med P.C.: No
--- NOTE | 2016-09-23 18:08 | PN ---
Teaching Attending Note Name of Resident: Ginny Richard ATTENDING PHYSICIAN STATEMENT I saw and evaluated the patient. I reviewed the resident's note and discussed the case with the resident. I agree with the resident's findings and plan as documented. SUBJECTIVE: No complaints. OBJECTIVE: Vital Signs Period Temp Pulse Resp BP Sys/Bowen Pulse Ox Last 24 Hr 98 F-99.2 F 48-60 18-20 107-147/62-94 94-95 HEART: S1S2, RRR LUNGS: Clear ABDOMEN: Obese, soft, non-tender, non-distended, normal BS EXTREMITIES: No edema ASSESSMENT AND PLAN: This is a 71-year-old woman with a history of CAD, stent, chronic diastolic heart failure, HTN, hyperlipidemia, PAF, type 2 DM, morbid obesity, depression who presented to the ER with chest pain. 1. Chest pain - Resolved - Troponin negative x 3 - Outpatient stress test 2. CAD, history of stent - Continue Toprol XL, Lipitor 3. HTN - Continue Toprol XL, Cardizem CD, Lasix 4. Hyperlipidemia - Continue Lipitor 5. Type 2 DM - Resume Metformin at discharge 6. Paroxysmal atrial fibrillation - Remains in sinus rhythm - Continue Toprol XL, Cardizem CD, Eliquis 7. Chronic diastolic heart failure - Stable - Continue Lasix 8. Depression - Continue Zoloft 9. Morbid obesity 10. Ok for discharge home with outpatient cardiology follow-up
== END 2016-09-23 18:51 | disposition home or self-care (01) ==
LOC: JER 21:48 → JERBED 09-22 01:24 → J4W 09-22 16:31
PROVIDERS: ADMIT Internal Medicine; ATTEND Internal Medicine
DX: R07.89 Other chest pain (principal); I10 Essential (primary) hypertension; I48.0 Paroxysmal atrial fibrillation; I47.1 Supraventricular tachycardia; E11.9 Type 2 diabetes mellitus without complications; E78.5 Hyperlipidemia, unspecified; E66.01 Morbid (severe) obesity due to excess calories; F32.9 Major depressive disorder, single episode, unspecified; Z68.31 Body mass index [BMI] 31.0-31.9, adult; Z79.01 Long term (current) use of anticoagulants; Z95.5 Presence of coronary angioplasty implant and graft; Z86.73 Personal history of transient ischemic attack (TIA), and cerebral infarction without residual deficits; Z86.79 Personal history of other diseases of the circulatory system; Z88.8 Allergy status to other drugs, medicaments and biological substances; Z88.2 Allergy status to sulfonamides; Z79.84 Long term (current) use of oral hypoglycemic drugs; M79.89 Other specified soft tissue disorders; G47.30 Sleep apnea, unspecified; M79.603 Pain in arm, unspecified
CPT/HCPCS: 36415; 71010-TC; 80053; 80061; 82550; 83721; 84484; 85025; 85610; 93005; 93010; 99285-25; G0378

== ENCOUNTER 2016-10-01 10:31 | Emergency (ER) | payer OTHER ==
[2016-10-01 11:13] VITALS: BMI 49.4
--- NOTE | 2016-10-01 11:21 | PDOC ---
History of Present Illness - General History Source: Patient Exam Limitations: No Limitations - History of Present Illness Initial Comments: 10/01/16 12:32 The patient is a 71 year old female, with a significant past medical history of AFib(on Eliquis), CAD(s/p stent 2008), CVA, brain aneurysm s/p clipping umbilical hernia, hypertension, hyperlipidemia, who presents to the emergency department complaining of a headache and dizziness since this morning. The patient reports she woke up feeling fine this morning, but when she went to get out of bed and began to walk around, she became lightheaded and dizzy. She reports difficulty ambulating secondary to dizziness and headache started later . She denies any blurry vision, double vision, changes in speech, recent head trauma, or LOC. She denies any numbness, tingling, wealmess, neck or back pain. Patient states she visited her PCP Dr. Engle approximately 2 days ago for evaluation of high blood pressure. Patient reports Dr. Engle doubled her dose of Lasix to BID. Patient reports she was feeling fine since her dose was changed. She denies any chest pain, shortness of breath, diaphoresis, or palpitations. She denies any nausea, vomiting, dysuria, diarrhea, constipation, melena, or hematochezia. Allergies: Pregabalin (from Lyrica), Budesonide (from Symbicort), Celecoxib( from Celebrex), formoterol fumarate (from symbicort), sulfacetamide sodium ( from sulfamide) Past Surgical History: Lung biopsy(May 2013), cardiac stent x1/loop recorder, Brain aneurysm clipped Social History: Former Smoker(Quit 40 years ago). No ETOH or recreational drug use. PCP: Dr. Engle <Janine Azul - Last Filed: 10/01/16 12:32> - General History Source: Patient Exam Limitations: No Limitations <Raz Davenport - Last Filed: 10/01/16 20:03> - General Chief Complaint: Blood Pressure Problem Stated Complaint: Blood Pressure Problem Time Seen by Provider: 10/01/16 10:37 Past History <Janine Azul - Last Filed: 10/01/16 12:32> - Past Medical History Anemia: No Asthma: No Cancer: No Cardiac Disorders: Yes (2009 STENT X1,, LINQ) 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) COPD: No CHF: No Dementia: No Diabetes: Yes GI Disorders: Yes (UMBILICAL HERNIA) Disorders: No HTN: Yes Hypercholesterolemia: Yes Liver Disease: No Suicide Attempt (Hx): No Seizures: No Thyroid Disease: No - Surgical History Abdominal Surgery: No Appendectomy: No Cardiac Surgery: Yes (STENT X 1, LOOP RECORDER INSERTION) Cholecystectomy: No Lung Surgery: Yes (biopsy May 2013) Neurologic Surgery: Yes (brain aneurysm clipped) Orthopedic Surgery: No - Immunization History Td Vaccination: Yes Immunization Up to Date: Yes - Psycho/Social/Smoking Cessation Hx Anxiety: No Suicidal Ideation: No Smoking Status: Yes Smoking History: Never smoked Years of Tobacco Use: 0 Have you smoked in the past 12 months: No Number of Cigarettes Smoked Daily: 0 If you are a former smoker, when did you quit?: 40 yrs Cigars Per Day: 0 Information on smoking cessation initiated: No 'Breaking Loose' booklet given: 08/17/13 Hx Alcohol Use: No Drug/Substance Use Hx: No Substance Use Type: None Hx Substance Use Treatment: No <Raz Davenport - Last Filed: 10/01/16 20:03> - Past Medical History Allergies/Adverse Reactions: Allergies Allergy/AdvReac Type Severity Reaction Status Date / Time pregabalin [From Lyrica] Allergy Intermediate Verified 10/01/16 11:13 budesonide [From Symbicort] Allergy Verified 10/01/16 11:13 celecoxib [From Celebrex] Allergy Verified 10/01/16 11:13 formoterol fumarate Allergy Verified 10/01/16 11:13 [From Symbicort] sulfacetamide sodium Allergy Verified 10/01/16 11:13 [From Sulfamide] Home Medications: Ambulatory Orders Atorvastatin Ca [Lipitor] 40 mg PO HS tablet 11/12/15 Furosemide [Lasix -] 20 mg PO DAILY tablet 11/12/15 Metformin HCl [Glucophage -] 500 mg PO BIDI tablet 11/12/15 Metoprolol Succinate [Toprol XL -] 50 mg PO DAILY tab.sr.24h 11/12/15 Ranitidine [Zantac -] 150 mg PO BID tablet 11/12/15 Sertraline HCl [Zoloft -] 25 mg PO DAILY tablet 11/12/15 Apixaban [Eliquis] 5 mg PO BID 12/22/15 Diltiazem Cd [Cardizem Cd -] 360 mg PO DAILY #60 cap.cd.24h 03/25/16 Nitrofurantoin Monohyd/M-Cryst [Macrobid -] 100 mg PO BID #10 capsule 10/01/16 Review of Systems - Review of Systems Able to Perform ROS?: Yes Comments:: 10/01/16 12:32 CONSTITUTIONAL: Present: +High blood pressure. No reported: Fever, Chills, Diaphoresis, Generalized Weakness, Malaise, Loss of Appetite HEENT: No reported: Rhinorrhea, Nasal Congestion, Throat Pain, Throat Swelling, Difficulty Swallowing, Mouth Swelling, Ear Pain, Eye Pain, Visual Changes CARDIOVASCULAR: Present: +Lightheadedness No reported: Chest Pain, Syncope, Palpitations, Irregular Heart Rate, Peripheral Edema RESPIRATORY: No reported: Cough, Shortness of Breath, SOB with Exertion, Orthopnea, Wheezing , Stridor, Hemoptysis GASTROINTESTINAL: No reported: Abdominal pain, Abdominal Distension, Nausea, Vomiting, Diarrhea, Constipation, Melena, Hematochezia GENITOURINARY: No reported: Dysuria, Frequency, Urgency, Hesitancy, Flank Pain, Genital Pain MUSCULOSKELETAL: No reported: Myalgia, Arthralgia, Joint Swelling, Back pain, Neck Pain SKIN: No reported: Rash, Itching, Pallor HEMATOLOGIC/IMMUNOLOGIC: No reported: Easy Bleeding, Easy Bruising, Lymphadenopathy, Frequent infections ENDOCRINE: No reported: Unexplained Weight Gain, Unexplained Weight Loss, Heat Intolerance , Cold Intolerance NEUROLOGIC: Present: +headache, +lightheadedness, +dizziness, +unsteady gait No reported: Focal Weakness, Paresthesias, Vertigo, Seizure, Mental Status Changes, Incontinence PSYCHIATRIC: No reported: Anxiety, Depression <Azul,Giomilsy - Last Filed: 10/01/16 12:32> *Physical Exam - Vital Signs Last Vital Signs Temp Pulse Resp BP Pulse Ox 98 F 59 L 18 166/78 97 10/01/16 10:31 10/01/16 10:31 10/01/16 10:31 10/01/16 10:31 10/01/16 10:31 - Physical Exam Comments: 10/01/16 12:32 GENERAL: The patient is awake, alert, and fully oriented, Nontoxic - in no acute distress. HEAD: Normocephalic, atraumatic. EYES: extraocular movements intact, sclera anicteric, conjunctiva clear. ENT: Normal voice, Moist mucous membranes. NECK: Normal range of motion, supple LUNGS: Breath sounds equal, clear to auscultation bilaterally. No wheezes, no rhonchi, no rales. HEART: Regular rate and rhythm, normal S1 and S2 without murmur, rub or gallop. ABDOMEN: Soft, nontender, normoactive bowel sounds. No guarding, no rebound. . No CVA tenderness EXTREMITIES: Normal range of motion, no edema. No clubbing or cyanosis. No cords, erythema, or tenderness. PSYCH: Normal mood, normal affect. SKIN: Warm, Dry, normal turgor, NEURO: Mental status: The patient is oriented x3. Cranial nerves: Cranial nerves II through XII are intact Motor: The upper extremities are 5 over 5. The lower extremities are 5 over 5. Negative pronator drift Sensation: Sensation is intact to light touch throughout. romberg negative Cerebellar: Ixbrms-ddokca-cdus is normal in both upper extremities. rapid alternating movements are normal. Gait: deferred <Janine Azul - Last Filed: 10/01/16 12:32> - Vital Signs Last Vital Signs Temp Pulse Resp BP Pulse Ox 98 F 59 L 18 166/78 97 10/01/16 10:31 10/01/16 10:31 10/01/16 10:31 10/01/16 10:31 10/01/16 10:31 <Raz Davenport - Last Filed: 10/01/16 20:03> Heart Score/ECG Review - ECG Impressions Comment:: 10/01/16 20:01 EKG performed 10/01/2016 at 12:55 Rate of 60 sinus rhthm abnormal R wave progression intervals normal no st changes suggestive of acute infarction <Raz Davenport - Last Filed: 10/01/16 20:03> ED Treatment Course - LABORATORY CBC & Chemistry Diagram: 10/01/16 12:20 10/01/16 12:20 - ADDITIONAL ORDERS Additional order review: Laboratory Results 10/01/16 12:20 Magnesium Cancelled <Janine Azul - Last Filed: 10/01/16 12:32> - LABORATORY CBC & Chemistry Diagram: 10/01/16 12:20 10/01/16 12:20 <Raz Davenport - Last Filed: 10/01/16 20:03> Medical Decision Making - Medical Decision Making 10/01/16 11:23 71y F hx of afib on eliquis, cad s/p stent in 2009, cva, brain aneurysm s/p clipping umbilical hernia, htn, hl, presents with complaint of feeling lightheaded this morning when she got up and walked around. The pt endorses a mild pressure like headache that started after feeling lightheaded. Pt states she feels improved currently, dneies any vision changes, speech changes, numbness/tingling/weakness, cp, palpitations, sob, diarrhea/melena, dysuria. exam is unremarakble w/o lateralizing neuro findings, no nystagmus noted, no cerebellar findings. pt does note that she went to her pmd for htn this thursday and she doubled her lasix dose to bid ?orthostasis htn vs. vertigo will also r/o anemia, metabolic dernagement, occult uti will obtain orthostatic bp, if not ab normal will give meclizine will ck cbc, cmp, ekg, ua will reasesss PMD: Elma A portion of this note was documented by scribe services under my direction. I have reviewed the details of the note, within reason, and agree with the documentation with the following case summary and management plan written by me 10/01/16 15:09 labs reviewed +uti - will tx with macrobid pt feeling improved not orthostatic no dizziness when ambulating to bathroom will dc with pmd fu return precautions were dsicussed I discussed the physical exam findings, ancillary test results and final diagnoses with the patient. I answered all of the patient's questions. The patient was satisfied with the care received and felt comfortable with the discharge plan and treatment plan. The patient will call their primary care physician within 24 hours to arrange follow-up and will return to the Emergency Department with any new, persistent or worsening symptoms. 10/01/16 15:10 <Raz Davenport - Last Filed: 10/01/16 20:03> *DC/Admit/Observation/Transfer - Attestations Scribe Attestion: 07/26/17 12:33 Documentation prepared by Janine Azul, acting as medical reimbursement manager for Raz Davenport MD. <Janine Azul - Last Filed: 10/01/16 12:32> - Discharge Dispostion Admit: No <Raz Davenport - Last Filed: 10/01/16 20:03> Diagnosis at time of Disposition: UTI (urinary tract infection) Qualifiers: Urinary tract infection type: acute cystitis Hematuria presence: with hematuria Qualified Code(s): N30.01 - Acute cystitis with hematuria - Discharge Dispostion Disposition: HOME Condition at time of disposition: Improved - Prescriptions Prescriptions: Nitrofurantoin Monohyd/M-Cryst [Macrobid -] 100 mg PO BID #10 capsule - Referrals Referrals: Yamilet Engle MD [Primary Care Provider] - - Patient Instructions Printed Discharge Instructions: DI for Urinary Tract Infection (UTI) Additional Instructions: Return to the emergency department immediately with ANY new, persistent or worsening symptoms including any fevers, chills, back pain, inability to tolerate oral intake or any other concerns. You MUST call and follow up with your doctor in 2 or 3 days for further evaluation of your symptoms. Results were discussed with you. Please make sure your doctor reviews the results of your emergency evaluation. Print Language: INDONESIAN
[2016-10-01] MEDS ORDERED: METOCLOPRAMIDE HCL INJECTION 10 MG/2 ML VIAL IVPUSH ONE (11:24)
[2016-10-01] MEDS ORDERED: METOCLOPRAMIDE HCL INJECTION 10 MG/2 ML VIAL ONE (12:19)
[2016-10-01 12:28] LABS: BASOPHIL 0.6 % (0-2.0); EOSINOPHIL 1.9 % (0-4.5); MCH 30.9 pg (25.7-33.7); MCHC 33.6 g/dl (32.0-36.0); MEAN CELL VOLUME 91.8 fl (80-96); NEUTROPHILS 63.5 % (42.8-82.8); PLATELET COUNT 200 K/MM3 (134-434); WHITE BLOOD COUNT 5.3 K/mm3 (4.0-10.0)
[2016-10-01 12:42] LABS: URINE APPEARANCE CLEAR; URINE BILIRUBIN NEGATIVE (NEGATIVE); URINE BLOOD 1+ (NEGATIVE); URINE COLOR YELLOW; URINE GLUCOSE (UA) NEGATIVE (NEGATIVE); URINE KETONE NEGATIVE (NEGATIVE); URINE NITRITE POSITIVE (NEGATIVE); URINE PROTEIN NEGATIVE (NEGATIVE); URINE UROBILINOGEN NEGATIVE mg/dL (0.2-1.0)
[2016-10-01 12:47] LABS: URINE LEUK ESTERASE 2+ (NEGATIVE)
[2016-10-01 12:48] LABS: URINE BACTERIA MANY /hpf (NONE SEEN); URINE MUCUS FEW; URINE RBC 1 /hpf (0-3); URINE WBC 20 /hpf (3-5)
[2016-10-01 12:59] LABS: ALBUMIN 3.6 g/dl (3.4-5.0); ANION GAP 10 (8-16); BILIRUBIN,TOTAL 0.6 mg/dL (0.2-1.0); CALCIUM 9.1 mg/dL (8.5-10.1); CO2 27 mmol/L (21-32); CREATININE 0.9 mg/dL (0.55-1.02); GLUCOSE,RANDOM 161 mg/dL (74-106); MAGNESIUM 2.4 mg/dL (1.8-2.4); SGOT/AST 13 U/L (15-37); SGPT/ALT 21 U/L (12-78); TOT PROT 7.1 g/dl (6.4-8.2)
[2016-10-01 13:00] LABS: ALK PHOS 69 U/L (45-117)
[2016-10-01] MEDS ORDERED: NITROFURANTOIN MACROCRYSTAL 50 MG CAPSULE (FP) PO SCH (15:15)
[2016-10-01] MEDS ORDERED: NITROFURANTOIN MACROCRYSTAL 50 MG CAPSULE (FP) ONE (15:58)
[2016-10-01 16:11] VITALS: BP 114/63; PULSE 69; TEMP 98.2
--- NOTE | 2016-10-02 11:57 | EKG ---
Test Reason : Blood Pressure : / mmHG Vent. Rate : 060 BPM Atrial Rate : 060 BPM P-R Int : 144 ms QRS Dur : 080 ms QT Int : 426 ms P-R-T Axes : 017 -22 083 degrees QTc Int : 426 ms POOR DATA QUALITY, INTERPRETATION MAY BE ADVERSELY AFFECTED NORMAL SINUS RHYTHM SEPTAL INFARCT (CITED ON OR BEFORE 23-MAR-2016) ABNORMAL ECG WHEN COMPARED WITH ECG OF 21-SEP-2016 22:28, NO SIGNIFICANT CHANGE WAS FOUND Confirmed by AL WAYNE MD ([id number]) on 10/02/2016 11:56:44 AM Referred By: Confirmed By:AL WAYEN MD
== END 2016-10-01 16:12 | disposition home or self-care (01) ==
LOC: JER 10:31
PROC: 3E033GC Introduction of Other Therapeutic Substance into Peripheral Vein, Percutaneous Approach (ICD-10-PCS; principal; 2016-10-01)
DX: N30.01 Acute cystitis with hematuria (principal); I48.91 Unspecified atrial fibrillation; Z79.01 Long term (current) use of anticoagulants; Z95.5 Presence of coronary angioplasty implant and graft; I25.10 Atherosclerotic heart disease of native coronary artery without angina pectoris; Z86.73 Personal history of transient ischemic attack (TIA), and cerebral infarction without residual deficits; I10 Essential (primary) hypertension; E78.00 Pure hypercholesterolemia, unspecified
CPT/HCPCS: 36415; 80053; 81003; 81015; 83735; 85025; 87086; 87186; 93005; 93010; 96374; 99283-25

== ENCOUNTER 2016-10-06 15:37 | Emergency (ER) | payer OTHER ==
[2016-10-06 15:41] VITALS: BMI 49.4
--- NOTE | 2016-10-06 16:43 | PDOC ---
History of Present Illness - General History Source: Patient Exam Limitations: No Limitations - History of Present Illness Initial Comments: 10/06/16 17:16 The patient is a 71 year old female with a significant past medical history of AFib (on Eliquis), CAD (s/p stent 2008), CVA, brain aneurysm s/p clipping umbilical hernia (), HTN and HLD who presents to the ED with 2 days of an occipital headache. Patient reports pain to the back of her head. She states her blood pressure has been high for the past several days and thinks her symptoms are related to that. Patient also reports feeling very hot associated with present symptoms. Denies fever or chills. Denies vision changes. Denies focal numbness, weakness, or tingling. Denies nausea, vomiting, or diarrhea. Denies any other symptoms. Allergies: Pregabalin (from Lyrica), Budesonide (from Symbicort), Celecoxib ( from Celebrex), formoterol fumarate (from symbicort), sulfacetamide sodium ( from sulfamide) Past Surgical hx: Lung biopsy (May 2013), car Social hx: Patient is a former smoker (quit over 40 years ago). No ETOH or recreational drug use. <Carin Edwards - Last Filed: 10/06/16 20:34> <Mireya Wallace - Last Filed: 10/07/16 01:32> - General Chief Complaint: Headache Stated Complaint: BLOOD PRESSURE PROBLEM Past History <Carin Edwards - Last Filed: 10/06/16 20:34> - Past Medical History Anemia: No Asthma: No Cancer: No Cardiac Disorders: Yes (2008 STENT X1,, LINQ) 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) COPD: No CHF: No Dementia: No Diabetes: Yes GI Disorders: Yes (UMBILICAL HERNIA) Disorders: No HTN: Yes Hypercholesterolemia: Yes Liver Disease: No Suicide Attempt (Hx): No Seizures: No Thyroid Disease: No - Surgical History Abdominal Surgery: No Appendectomy: No Cardiac Surgery: Yes (STENT X 1, LOOP RECORDER INSERTION) Cholecystectomy: No Lung Surgery: Yes (biopsy May 2013) Neurologic Surgery: Yes (brain aneurysm clipped) Orthopedic Surgery: No - Immunization History Td Vaccination: Yes Immunization Up to Date: Yes - Psycho/Social/Smoking Cessation Hx Anxiety: No Suicidal Ideation: No Smoking Status: Yes Smoking History: Never smoked Years of Tobacco Use: 0 Have you smoked in the past 12 months: No Number of Cigarettes Smoked Daily: 0 If you are a former smoker, when did you quit?: 40 yrs Cigars Per Day: 0 Information on smoking cessation initiated: No 'Breaking Loose' booklet given: 08/17/13 Hx Alcohol Use: No Drug/Substance Use Hx: No Substance Use Type: None Hx Substance Use Treatment: No <Mireya Wallace - Last Filed: 10/07/16 01:32> - Past Medical History Allergies/Adverse Reactions: Allergies Allergy/AdvReac Type Severity Reaction Status Date / Time pregabalin [From Lyrica] Allergy Intermediate Verified 10/06/16 15:41 budesonide [From Symbicort] Allergy Verified 10/06/16 15:41 celecoxib [From Celebrex] Allergy Verified 10/06/16 15:41 formoterol fumarate Allergy Verified 10/06/16 15:41 [From Symbicort] sulfacetamide sodium Allergy Verified 10/06/16 15:41 [From Sulfamide] Home Medications: Ambulatory Orders Atorvastatin Ca [Lipitor] 40 mg PO HS tablet 11/12/15 Metformin HCl [Glucophage -] 500 mg PO BIDI tablet 11/12/15 Metoprolol Succinate [Toprol XL -] 50 mg PO DAILY tab.sr.24h 11/12/15 Ranitidine [Zantac -] 150 mg PO BID tablet 11/12/15 Sertraline HCl [Zoloft -] 25 mg PO DAILY tablet 11/12/15 Apixaban [Eliquis] 5 mg PO BID 12/22/15 Diltiazem Cd [Cardizem Cd -] 360 mg PO DAILY #60 cap.cd.24h 03/25/16 Furosemide [Lasix -] 40 mg PO DAILY 10/06/16 Neuro Specific PMHX - Complaint Specific PMHX Herniated Disk: No TIA: No <Mireya Wallace - Last Filed: 10/07/16 01:32> Review of Systems - Review of Systems Able to Perform ROS?: Yes Comments:: 10/06/16 17:16 CONSTITUTIONAL: Absent: fever, chills, diaphoresis, generalized weakness, malaise, loss of appetite HEENT: Absent: rhinorrhea, nasal congestion, throat pain, throat swelling, difficulty swallowing, mouth swelling, ear pain, eye pain, visual Changes CARDIOVASCULAR: Absent: chest pain, syncope, palpitations, irregular heart rate, lightheadedness , peripheral edema RESPIRATORY: Absent: cough, shortness of breath, dyspnea with exertion, orthopnea, wheezing, stridor, hemoptysis GASTROINTESTINAL: Absent: abdominal pain, abdominal distension, nausea, vomiting, diarrhea, constipation, melena, hematochezia GENITOURINARY: Absent: dysuria, frequency, urgency, hesitancy, hematuria, flank pain, genital pain MUSCULOSKELETAL: Absent: myalgia, arthralgia, joint swelling SKIN: Absent: rash, itching, pallor HEMATOLOGIC/IMMUNOLOGIC: Absent: easy bleeding, easy bruising, lymphadenopathy, frequent infections ENDOCRINE: Absent: unexplained weight gain, unexplained weight loss, heat intolerance, cold intolerance NEUROLOGIC: Absent: headache, focal weakness or paresthesias, dizziness, unsteady gait, seizure, mental status changes, bladder or bowel incontinence PSYCHIATRIC: Absent: anxiety, depression, suicidal or homicidal ideation, hallucinations. All Other Systems: Reviewed and Negative <Carin Edwards - Last Filed: 10/06/16 20:34> *Physical Exam - Vital Signs Last Vital Signs Temp Pulse Resp BP Pulse Ox 98.9 F 79 16 151/69 97 10/06/16 15:38 10/06/16 15:38 10/06/16 15:38 10/06/16 15:38 10/06/16 15:38 - Physical Exam Comments: 10/06/16 17:16 GENERAL: + morbid obesity Awake and alert. No acute distress. HEENT: Normocephalic, atraumatic. PERRLA, EOMI. No conjunctival pallor. Sclera are non- icteric. Moist mucous membranes. Oropharynx is clear. NECK: Supple. Full ROM. No JVD. Carotid pulses 2+ and symmetric, without bruits. No thyromegaly. NCo lymphadenopathy. CARDIOVASCULAR: Regular rate and rhythm. No murmurs, rubs, or gallops. Distal pulses are 2+ and symmetric. PULMONARY: + decreased breath sounds Lungs clear to auscultation bilaterally. No wheezing, rales or rhonchi. ABDOMINAL: Soft. Non-tender. Non-distended. No rebound or guarding. No organomegaly. Normoactive bowel sounds. MUSCULOSKELETAL Normal range of motion at all joints. No bony deformities or tenderness. No CVA tenderness. EXTREMITIES: No cyanosis. No clubbing. No edema. No calf tenderness. SKIN: Warm and dry. Normal capillary refill. No rashes. No jaundice. NEUROLOGICAL: Alert, awake, appropriate. Cranial nerves 2-12 intact. No deficits to light touch and temperature in face, upper extremities and lower extremities. No motor deficits in the in face, upper extremities and lower extremities. Normoreflexic in the upper and lower extremities. Normal speech. Toes are down- going bilaterally. Gait is normal without ataxia. PSYCHIATRIC: Cooperative. Good eye contact. Appropriate mood and affect. <Carin Edwards - Last Filed: 10/06/16 20:34> - Vital Signs Last Vital Signs Temp Pulse Resp BP Pulse Ox 98.9 F 79 16 151/69 97 10/06/16 15:38 10/06/16 15:38 10/06/16 15:38 10/06/16 15:38 10/06/16 15:38 <Mireya Wallace - Last Filed: 10/07/16 01:32> ED Treatment Course - LABORATORY CBC & Chemistry Diagram: 10/06/16 17:20 10/06/16 17:20 - RADIOLOGY Radiograph Interpretation: 10/06/16 18:51 CT/HEAD CT WITHOUT CONTRAST Impression: No gross interval change or acute intracranial pathology is identified. Correlate clinically to determine further evaluation and follow up. Reported by: Armando Ortiz 10/06/16 20:34 RAD/CHEST PA & LAT Impression: No gross interval change or acute lung disease is present. Reported by: Armando Ortiz <Carin Edwards - Last Filed: 10/06/16 20:34> - LABORATORY CBC & Chemistry Diagram: 10/06/16 17:20 10/06/16 17:20 <Mireya Wallace - Last Filed: 10/07/16 01:32> Medical Decision Making - Medical Decision Making 10/06/16 18:08 71-year-old female presents with complaint of occipital headache for several days. She does state that she thinks was a high blood pressure upon presentation. Her BP is 150/69. She denies any nausea, vomiting, fever, chills, visual changes, neck pain on Exam she is a morbidly obese, alert and conversant 71-year-old female. -She stated that she had a history of a brain aneurysm repair and this is done in the remote past -Past medical history also significant for hypertension, coronary artery disease , cardiac stents -Patient was seen twice last month at this emergency department. She was seen for chest pain and admitted and also she was seen and treated for urinary tract infection plan ct head,UA,labs 10/07/16 01:31 Labs are essentially unremarkable with the exception of a mild hyperglycemia. CAT scan of the head did show an old craniotomy, but no acute intracranial pathology Patient's headache resolved <Mireya Wallace - Last Filed: 10/07/16 01:32> *DC/Admit/Observation/Transfer - Attestations Scribe Attestion: 10/06/16 17:17 Documentation prepared by Carin Edwards, acting as medical director of hospice for Mireya Wallcae MD <Carin Edwards - Last Filed: 10/06/16 20:34> <Mireya Wallace - Last Filed: 10/07/16 01:32> Diagnosis at time of Disposition: disharged home - Discharge Dispostion Disposition: HOME - Referrals Referrals: Yamilet Engle MD [Primary Care Provider] -
[2016-10-06] MEDS ORDERED: METOCLOPRAMIDE HCL INJECTION 10 MG/2 ML VIAL IVPB ONE (16:44)
[2016-10-06] MEDS ORDERED: METOCLOPRAMIDE HCL INJECTION 10 MG/2 ML VIAL ONE (16:55)
[2016-10-06 17:33] LABS: BASOPHIL 1.2 % (0-2.0); EOSINOPHIL 3.3 % (0-4.5); MCH 30.5 pg (25.7-33.7); MCHC 33.6 g/dl (32.0-36.0); MEAN CELL VOLUME 90.7 fl (80-96); MEAN PLT VOLUME 8.1 fl (7.5-11.1); PLATELET COUNT 214 K/MM3 (134-434); RDW 14.2 % (11.6-15.6)
[2016-10-06 17:34] LABS: URINE APPEARANCE CLEAR; URINE BILIRUBIN NEGATIVE (NEGATIVE); URINE BLOOD NEGATIVE (NEGATIVE); URINE COLOR STRAW; URINE GLUCOSE (UA) NEGATIVE (NEGATIVE); URINE KETONE NEGATIVE (NEGATIVE); URINE LEUK ESTERASE NEGATIVE (NEGATIVE); URINE NITRITE NEGATIVE (NEGATIVE); URINE PROTEIN NEGATIVE (NEGATIVE); URINE UROBILINOGEN NEGATIVE mg/dL (0.2-1.0)
[2016-10-06 17:45] LABS: INR 1.23 (0.82-1.09); PROTHROMBIN TIME (PATIENT) 13.6 SEC (9.98-11.88)
[2016-10-06 20:00] VITALS: BP 150/68; PULSE 85; TEMP 98
[2016-10-06 20:18] LABS: ALBUMIN 3.3 g/dl (3.4-5.0); ANION GAP 11 (8-16); BILIRUBIN,TOTAL 0.4 mg/dL (0.2-1.0); CALCIUM 8.7 mg/dL (8.5-10.1); CO2 24 mmol/L (21-32); CREATININE 0.9 mg/dL (0.55-1.02); GLUCOSE,RANDOM 163 mg/dL (74-106); SGPT/ALT 25 U/L (12-78); TOT PROT 6.9 g/dl (6.4-8.2)
[2016-10-06 20:21] LABS: ALK PHOS 73 U/L (45-117); TROPONIN I < 0.02 ng/ml (0.00-0.05)
[2016-10-06 20:27] LABS: CPK 89 IU/L (26-192); SGOT/AST 18 U/L (15-37)
--- NOTE | 2016-10-07 13:26 | EKG ---
Test Reason : Blood Pressure : / mmHG Vent. Rate : 064 BPM Atrial Rate : 064 BPM P-R Int : 156 ms QRS Dur : 080 ms QT Int : 426 ms P-R-T Axes : 049 -23 090 degrees QTc Int : 439 ms SINUS RHYTHM WITH MARKED SINUS ARRHYTHMIA SEPTAL INFARCT (CITED ON OR BEFORE 23-MAR-2016) ABNORMAL ECG WHEN COMPARED WITH ECG OF 01-OCT-2016 12:55, ST-T ABNORMALITIES ARE MORE PRONOUNED IN V5-V6 REPEAT INDICATED Confirmed by VINCENT YARBROUGH MD ([id number]) on 10/07/2016 1:25:49 PM Referred By: Confirmed By:VINCENT YARBROUGH MD
== END 2016-10-06 21:12 | disposition home or self-care (01) ==
LOC: JER 15:37
PROC: 3E033GC Introduction of Other Therapeutic Substance into Peripheral Vein, Percutaneous Approach (ICD-10-PCS; principal; 2016-10-06)
PROC: 3E033GC Introduction of Other Therapeutic Substance into Peripheral Vein, Percutaneous Approach (ICD-10-PCS; 2016-10-06)
DX: R51 Headache (principal); E11.65 Type 2 diabetes mellitus with hyperglycemia; I10 Essential (primary) hypertension; I25.10 Atherosclerotic heart disease of native coronary artery without angina pectoris; Z95.5 Presence of coronary angioplasty implant and graft; E11.9 Type 2 diabetes mellitus without complications; Z79.84 Long term (current) use of oral hypoglycemic drugs; E78.00 Pure hypercholesterolemia, unspecified; I48.91 Unspecified atrial fibrillation; Z79.01 Long term (current) use of anticoagulants; Z86.73 Personal history of transient ischemic attack (TIA), and cerebral infarction without residual deficits; E66.01 Morbid (severe) obesity due to excess calories; Z68.42 Body mass index [BMI] 45.0-49.9, adult
CPT/HCPCS: 36415; 70450-TC; 71020-TC; 80053; 81003; 84484; 85025; 85610; 93005; 93010; 96374; 96375; 99283-25

== ENCOUNTER 2017-02-05 06:56 | Observation (INO) | payer OTHER ==
[2017-02-05 07:15] VITALS: BMI 35.4
--- NOTE | 2017-02-05 07:45 | PDOC ---
Attending Attestation - Resident Resident Name: BradenRoderick - HPI HPI: 02/05/17 15:32 Pt presents to the ED complaining of chest pain that has been intermittent since yesterday but worse this AM. Denies nausea, vomiting or shortness of breath. Extensive history of cardiac disease as discussed in resident note. EKG shows no evidence of ischemia. 02/05/17 16:00 - Physicial Exam PE: 02/05/17 16:04 Agree with resident exam . Heart is regular rate and rhythm. Lungs are clear. - Medical Decision Making 02/05/17 16:05 Pt presents to the ED complaining of chest pain. Extensive risk factors for cardiac disease. Will admit to medicine for rule out ACS.
--- NOTE | 2017-02-05 08:09 | PDOC ---
History of Present Illness - General Chief Complaint: Chest Pain Stated Complaint: CHEST PAIN Time Seen by Provider: 02/05/17 07:35 - History of Present Illness Initial Comments: 02/05/17 08:04 71 yo F with h/o NIDDM, HTN, HLD, A-fib, IL x 2 s/p stent placement who presents with chest pain. Complains of 2 hours sharp, substernal, chest pain yesterday afternoon. Now reports that overnight developed onset of sharp susbternal chest pain with radiation to left side chest and to thoracic back. States that pain is different than reflux type pain in past and is slightly improving. Attempted Tylenol with no improvement. No aggravating factors. Also endorses non productive cough beginning overnight. Denies any other asx complaints. Denies fevers/chills, N/V, pain on deep inhalation, abdominal pain, constipation/diarrhea, postprandial pain, lightheadedness, weakness, fatigue. States she is unable to tolerate ASA h/o aneurysmal bleed. Denies h/o CABG. PCP Dr. Engle. Electrome[employer] Dr. Najera. Tobacco cessation 40 years ago. No home 02 requirements. Past History - Past Medical History Allergies/Adverse Reactions: Allergies Allergy/AdvReac Type Severity Reaction Status Date / Time pregabalin [From Lyrica] Allergy Intermediate Verified 02/05/17 07:15 budesonide [From Symbicort] Allergy Verified 02/05/17 07:15 celecoxib [From Celebrex] Allergy Verified 02/05/17 07:15 formoterol fumarate Allergy Verified 02/05/17 07:15 [From Symbicort] sulfacetamide sodium Allergy Verified 02/05/17 07:15 [From Sulfamide] Home Medications: Ambulatory Orders Atorvastatin Ca [Lipitor] 40 mg PO HS tablet 11/12/15 Metformin HCl [Glucophage -] 500 mg PO BIDI tablet 11/12/15 Metoprolol Succinate [Toprol XL -] 50 mg PO DAILY tab.sr.24h 11/12/15 Ranitidine [Zantac -] 150 mg PO BID tablet 11/12/15 Sertraline HCl [Zoloft -] 25 mg PO DAILY tablet 11/12/15 Apixaban [Eliquis] 5 mg PO BID 12/22/15 Diltiazem Cd [Cardizem Cd -] 360 mg PO DAILY #60 cap.cd.24h 03/25/16 Furosemide [Lasix -] 40 mg PO DAILY 10/06/16 Anemia: No Asthma: No Cancer: No Cardiac Disorders: Yes (2009 STENT X1,, LINQ) 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) COPD: No CHF: No DVT: No Dementia: No Diabetes: Yes GI Disorders: Yes (UMBILICAL HERNIA) Disorders: No HTN: Yes Hypercholesterolemia: Yes Liver Disease: No Seizures: No Thyroid Disease: No - Surgical History Abdominal Surgery: No Appendectomy: No Cardiac Surgery: Yes (STENT X 1, LOOP RECORDER INSERTION) Cholecystectomy: No Lung Surgery: Yes (biopsy May 2013) Neurologic Surgery: Yes (brain aneurysm clipped) Orthopedic Surgery: No - Immunization History Td Vaccination: Yes Immunization Up to Date: Yes - Suicide/Smoking/Psychosocial Hx Smoking Status: Yes Smoking History: Never smoked Years of Tobacco Use: 0 Have you smoked in the past 12 months: No Number of Cigarettes Smoked Daily: 0 If you are a former smoker, when did you quit?: 40 yrs Cigars Per Day: 0 Information on smoking cessation initiated: No 'Breaking Loose' booklet given: 08/17/13 Hx Alcohol Use: No Drug/Substance Use Hx: No Substance Use Type: None Hx Substance Use Treatment: No Review of Systems - Review of Systems Comments:: 02/05/17 08:40 GENERAL/CONSTITUTIONAL: No fever or chills. No weakness. HEAD, EYES, EARS, NOSE AND THROAT: No change in vision. No ear pain or discharge. No sore throat.- CARDIOVASCULAR: + chest pain and shortness of breath RESPIRATORY:+ cough. No wheezing, or hemoptysis. GASTROINTESTINAL: No nausea, vomiting, diarrhea or constipation. GENITOURINARY: No dysuria, frequency, or change in urination. MUSCULOSKELETAL: No joint or muscle swelling or pain. No neck or back pain. SKIN: No rash NEUROLOGIC: No headache, vertigo, loss of consciousness, or change in strength/ sensation. ENDOCRINE: No increased thirst. No abnormal weight change HEMATOLOGIC/LYMPHATIC: No anemia, easy bleeding, or history of blood clots. ALLERGIC/IMMUNOLOGIC: No hives or skin allergy. *Physical Exam - Vital Signs Last Vital Signs Temp Pulse Resp BP Pulse Ox 98 F 61 19 157/73 93 L 02/05/17 07:13 02/05/17 07:13 02/05/17 07:13 02/05/17 07:13 02/05/17 07:13 - Physical Exam Comments: 02/05/17 08:44 GENERAL: Awake, alert, and fully oriented, in no acute distress HEAD: No signs of trauma, normocephalic, atraumatic EYES: PERRLA, EOMI, sclera anicteric, conjunctiva clear ENT: Hearing grossly normal, nares patent, oropharynx clear without exudates. Moist mucosa NECK: Normal ROM, supple, no lymphadenopathy, JVD, or masses LUNGS: BL exp rhonci diffusely. No distress, speaks full sentences. Absent rales. HEART: Regular rate and rhythm, normal S1 and S2, no murmurs, rubs or gallops, peripheral pulses normal and equal bilaterally. ABDOMEN: Soft, midepigastric ttp and RUQ ttp. Normoactive bowel sounds.Umbilical hernia. No guarding, no rebound. No masses. Absent CVA ttp. EXTREMITIES : Normal inspection, Normal range of motion, no edema. No clubbing or cyanosis. SKIN: Warm, Dry, normal turgor, no rashes or lesions noted. Heart Score/ECG Review - History History: Slightly suspicious - Electrocardiogram EKG: Non specific repolarization disturbance - Age Age: >/= 65 - Risk Factors Risk Factors Heart Score: Yes Hx Hypercholesterolemia, Yes Hx Hypertension, Yes Hx Diabetes, Yes Smoking History, Yes Positive family hx of cardiac disease, Yes Hx Obesity Based on the list above the patient has:: >/=3 risk factors or Hx atherosclerotic disease - Troponin Troponin: </= normal limit - Score Heart Score - Total: 5 - ECG Intrepretation Rhythm: Regular Rhythm - [place]: Normal - ECG Impressions Normal ECG: No Non-specific ST Elevation: No Ischemic Changes: No Torsades juana Pointes: No WPW: No ED Treatment Course - LABORATORY CBC & Chemistry Diagram: 02/05/17 08:11 02/05/17 08:11 Medical Decision Making - Medical Decision Making 02/05/17 08:47 71 yo F with h/o NIDDM, HTN, HLD, A-fib, [place] x 2 s/p stent placement who presents with sharp substernal chest pain with radiation to left side chest and to thoracic back beginning yesterday afternoon. Pain non positional. Also endorses non productive cough beginning overnight. Denies asx. complaints. Physical exam with diffuse expiratory rhonci, and slightly hypoxic on RA 93 % O2. + Midepigastric ttp and RUQ ttp. Reports that nature of pain different than reflux symptoms in past. It is reasonable to consider ACS/IL in setting of multiple comorbidities/risk factors. Also moderate suspicion for GI process. Patient history and physical exam consistent with gastritis/relfux. Will consider choleycsytitis vs pancreatitis ( less likely). ED Course: CBC, CMP, Lipase, Trop, Cardiac Profile EKG, CXR UA 02/05/17 09:11 Trop Neg BNP: 731 02/05/17 09:12 CXR: No acute lung pathology EK02/05/17 09:42 RUQ U/S. 02/05/17 09:42 EKG: NSR with STD V5. Absent SUSAN. Heart score 5 with 13 % risk MACE. 02/05/17 11:[address] Engle. Will admit to Tele/obs. *DC/Admit/Observation/Transfer Diagnosis at time of Disposition: Chest pain Qualifiers: Chest pain type: unspecified Qualified Code(s): R07.9 - Chest pain, unspecified - Discharge Dispostion Admit: Yes - Referrals - Patient Instructions - Post Discharge Activity
[2017-02-05 08:34] LABS: EOSINOPHIL 2.7 % (0-4.5); MCH 30.8 pg (25.7-33.7); MCHC 33.6 g/dl (32.0-36.0); MEAN CELL VOLUME 91.5 fl (80-96); MEAN PLT VOLUME 7.8 fl (7.5-11.1); NEUTROPHILS 67.9 % (42.8-82.8); PLATELET COUNT 219 K/MM3 (134-434); RDW 14.1 % (11.6-15.6); WHITE BLOOD COUNT 6.5 K/mm3 (4.0-10.0)
[2017-02-05 09:04] LABS: INR 1.17 (0.82-1.09); PROTHROMBIN TIME (PATIENT) 13.2 SEC (9.98-11.88)
[2017-02-05 09:08] LABS: TROPONIN I 0.02 ng/ml (0.00-0.05)
[2017-02-05 09:08] LABS: ALBUMIN 3.3 g/dl (3.4-5.0); ALK PHOS 69 U/L (45-117); ANION GAP 6 (8-16); BILIRUBIN,TOTAL 0.6 mg/dL (0.2-1.0); CALCIUM 8.2 mg/dL (8.5-10.1); CO2 28 mmol/L (21-32); CREATININE 0.9 mg/dL (0.55-1.02); GLUCOSE,RANDOM 170 mg/dL (74-106); SGOT/AST 6 U/L (15-37); SGPT/ALT 22 U/L (12-78); TOT PROT 6.7 g/dl (6.4-8.2)
[2017-02-05 09:57] LABS: URINE APPEARANCE CLOUDY; URINE BILIRUBIN NEGATIVE (NEGATIVE); URINE BLOOD NEGATIVE (NEGATIVE); URINE COLOR YELLOW; URINE GLUCOSE (UA) NEGATIVE (NEGATIVE); URINE KETONE NEGATIVE (NEGATIVE); URINE NITRITE NEGATIVE (NEGATIVE); URINE PROTEIN NEGATIVE (NEGATIVE); URINE UROBILINOGEN NEGATIVE mg/dL (0.2-1.0)
--- NOTE | 2017-02-05 12:51 | EKG ---
Test Reason : Blood Pressure : / mmHG Vent. Rate : 062 BPM Atrial Rate : 062 BPM P-R Int : 154 ms QRS Dur : 082 ms QT Int : 422 ms P-R-T Axes : 046 -18 093 degrees QTc Int : 428 ms NORMAL SINUS RHYTHM WITH SINUS ARRHYTHMIA POSSIBLE ANTERIOR INFARCT (CITED ON OR BEFORE 23-MAR-2016) ABNORMAL ECG WHEN COMPARED WITH ECG OF 06-OCT-2016 17:09, NO SIGNIFICANT CHANGE WAS FOUND Confirmed by AL WAYNE MD ([id number]) on 02/05/2017 12:51:20 PM Referred By: Confirmed By:AL WAYNE MD
[2017-02-05] MEDS: guaiFENesin 200 MG/10 ML 10 ML UNIT-DOSE CUPS PO PRN (16:12)
--- NOTE | 2017-02-05 16:15 | HP ---
Admitting History and Physical - Primary Care Physician PCP: Yamilet Engle - Admission History of Present Illness: Pt presents to the ED complaining of chest pain that has been intermittent since yesterday but worse this AM. Denies nausea, vomiting or shortness of breath. Extensive history of cardiac disease as discussed in resident note. EKG shows no evidence of ischemia. - - Past Medical History Cardiovascular: Yes: CAD, HTN, Hyperlipdemia, Other (PSVT in 2012) Pulmonary: Yes: Sleep Apnea (risks for FRANSISCA) Renal/: Yes: Renal Inusuff Psych: Yes: Anxiety Endocrine: Yes: Diabetes Mellitus - Past Surgical History Past Surgical History: Yes: Stent - Smoking History Smoking history: Never smoked Have you smoked in the past 12 months: No Aproximately how many cigarettes per day: 0 If you are a former smoker, when did you quit?: 40 yrs - Alcohol/Substance Use Hx Alcohol Use: No - Social History History of Recent Travel: No Home Medications - Allergies Allergies/Adverse Reactions: Allergies Allergy/AdvReac Type Severity Reaction Status Date / Time pregabalin [From Lyrica] Allergy Intermediate Verified 02/05/17 07:15 budesonide [From Symbicort] Allergy Verified 02/05/17 07:15 celecoxib [From Celebrex] Allergy Verified 02/05/17 07:15 formoterol fumarate Allergy Verified 02/05/17 07:15 [From Symbicort] sulfacetamide sodium Allergy Verified 02/05/17 07:15 [From Sulfamide] - Home Medications Home Medications: Ambulatory Orders Atorvastatin Ca [Lipitor] 40 mg PO HS tablet 11/12/15 Metformin HCl [Glucophage -] 500 mg PO BIDI tablet 11/12/15 Metoprolol Succinate [Toprol XL -] 50 mg PO DAILY tab.sr.24h 11/12/15 Ranitidine [Zantac -] 150 mg PO BID tablet 11/12/15 Sertraline HCl [Zoloft -] 25 mg PO DAILY tablet 11/12/15 Apixaban [Eliquis] 5 mg PO BID 12/22/15 Diltiazem Cd [Cardizem Cd -] 360 mg PO DAILY #60 cap.cd.24h 03/25/16 Furosemide [Lasix -] 40 mg PO DAILY 10/06/16 Dextromethorphan HBr [Robitussin] 15 mg PO BID #30 capsule 02/05/17 Physical Examination Vital Signs: Vital Signs Temperature 98.2 F 02/05/17 15:16 Pulse Rate 70 02/05/17 15:16 Respiratory Rate 16 02/05/17 10:27 Blood Pressure 124/72 02/05/17 15:16 O2 Sat by Pulse Oximetry (%) 96 02/05/17 10:27 Constitutional: Yes: No Distress HENT: Yes: Atraumatic Neck: Yes: Supple Cardiovascular: Yes: Regular Rate and Rhythm Respiratory: Yes: CTA Bilaterally Gastrointestinal: Yes: Normal Bowel Sounds Labs: CBC, BMP 02/05/17 08:11 02/05/17 08:11 Problem List - Problems (1) Chest pain Assessment/Plan: tele monitoring fu serail cardiac enzymes seems more like musculoskeletal as pain gets worse on coughing Code(s): R07.9 - CHEST PAIN, UNSPECIFIED Qualifiers: Chest pain type: unspecified Qualified Code(s): R07.9 - Chest pain, unspecified (2) Morbid obesity Code(s): E66.01 - MORBID (SEVERE) OBESITY DUE TO EXCESS CALORIES (3) Diabetes Code(s): E11.9 - TYPE 2 DIABETES MELLITUS WITHOUT COMPLICATIONS Qualifiers: Diabetes mellitus type: type 2 Diabetes mellitus complication status: with hyperosmolarity Diabetes mellitus complication detail: without coma Diabetes mellitus residential insulin use: without residential use Qualified Code( s): E11.00 - Type 2 diabetes mellitus with hyperosmolarity without nonketotic hyperglycemic-hyperosmolar coma (NKHHC) (4) HTN (hypertension), benign Code(s): I10 - ESSENTIAL (PRIMARY) HYPERTENSION (5) Hyperlipidemia Code(s): E78.5 - HYPERLIPIDEMIA, UNSPECIFIED Assessment/Plan Laboratory Tests 02/05/17 02/05/17 02/05/17 08:11 08:11 08:11 WBC 6.5 RBC 4.72 Hgb 14.5 Hct 43.1 MCV 91.5 MCH 30.8 MCHC 33.6 RDW 14.1 Plt Count 219 MPV 7.8 Neutrophils % 67.9 Lymphocytes % 19.8 Monocytes % 8.6 Eosinophils % 2.7 Basophils % 1.0 PT with INR 13.20 H INR 1.17 H Sodium 141 Potassium 4.0 Chloride 107 Carbon Dioxide 28 Anion Gap 6 L BUN 14 D Creatinine 0.9 Creat Clearance w eGFR > 60 Random Glucose 170 H Calcium 8.2 L Total Bilirubin 0.6 D AST 6 L D ALT 22 Alkaline Phosphatase 69 Troponin I B-Natriuretic Peptide Total Protein 6.7 Albumin 3.3 L Lipase Urine Color Urine Appearance Urine pH Ur Specific [place] Urine Protein Urine Glucose (UA) Urine Ketones Urine Blood Urine Nitrite Urine Bilirubin Urine Urobilinogen 02/05/17 02/05/17 08:16 08:16 WBC RBC Hgb Hct MCV MCH MCHC RDW Plt Count MPV Neutrophils % Lymphocytes % Monocytes % Eosinophils % Basophils % PT with INR INR Sodium Potassium Chloride Carbon Dioxide Anion Gap BUN Creatinine Creat Clearance w eGFR Random Glucose Calcium Total Bilirubin AST ALT Alkaline Phosphatase Troponin I 0.02 B-Natriuretic Peptide 731.21 H Total Protein Albumin Lipase 137 Urine Color Yellow Urine Appearance Cloudy Urine pH 5.0 Ur Specific [place] 1.026 Urine Protein Negative Urine Glucose (UA) Negative Urine Ketones Negative Urine Blood Negative Urine Nitrite Negative Urine Bilirubin Negative Urine Urobilinogen Negative Active Medications Generic Name Dose Route Start Last Admin Trade Name Freq PRN Reason Stop Dose Admin Guaifenesin 10 ml 02/05/17 15:51 Robitussin - PO Q6H PRN
[2017-02-05 17:19] LABS: URINE LEUK ESTERASE 1+ (NEGATIVE)
[2017-02-05] MEDS: metFORMIN HCL 500 MG TABLET (FP) PO SCH (18:11)
[2017-02-05] MEDS ORDERED: guaiFENesin/CODEINE 5 ML UNIT-DOSE CUPS PO PRN (18:17)
[2017-02-05 19:44] LABS: CPK 122 IU/L (26-192)
[2017-02-05 19:45] LABS: TROPONIN I < 0.02 ng/ml (0.00-0.05)
[2017-02-05] MEDS: RANITIDINE HCL 150 MG TABLET (FP) PO SCH (21:16)
[2017-02-05] MEDS: APIXABAN 5 MG TABLET PO SCH (21:16)
[2017-02-05] MEDS ORDERED: ATORVASTATIN CA 40 MG TABLET (FP) PO SCH (22:00)
[2017-02-05 22:05] LABS: URINE BACTERIA FEW /hpf (NEGATIVE); URINE RBC 0-2 /hpf (0-3)
[2017-02-05] MEDS ORDERED: ACETAMINOPHEN 325 MG TABLET (FP) PO PRN (23:36)
[2017-02-06] MEDS: guaiFENesin 200 MG/10 ML 10 ML UNIT-DOSE CUPS PO PRN ×2 (00:48→09:21)
[2017-02-06] MEDS: metFORMIN HCL 500 MG TABLET (FP) PO SCH (06:11)
[2017-02-06] MEDS: RANITIDINE HCL 150 MG TABLET (FP) PO SCH (09:21)
[2017-02-06] MEDS: APIXABAN 5 MG TABLET PO SCH (09:21)
[2017-02-06 09:27] VITALS: BP 148/84; PULSE 68; TEMP 98
[2017-02-06] MEDS ORDERED: METOPROLOL SUCCINATE 50 MG TAB.SR.24H (FP) PO SCH (10:00)
[2017-02-06] MEDS ORDERED: SERTRALINE HCL 25 MG TABLET (FP) PO SCH (10:00)
[2017-02-06] MEDS ORDERED: FUROSEMIDE 20 MG TABLET (FP) PO SCH (10:00)
--- NOTE | 2017-02-06 10:00 | CON.CARD ---
Consult Consult Specialty:: cardiology Reason for Consultation:: atypical chest pain; Hx COPD and CAD - History of Present Illness Chief Complaint: No longer has the sharp central chest pain that scared her and led to admission History of Present Illness: Pt presents to the ED complaining of chest pain that has been intermittent since yesterday but worse this AM. Denies nausea, vomiting or shortness of breath. Extensive history of cardiac disease as discussed in resident note. EKG shows no evidence of ischemia. 02/05/17 16:00 - History Source History Provided By: Patient, Medical Record Limitations to Obtaining History: No Limitations - Past Medical History Cardio/Vascular: Yes: CAD, HTN, Hyperlipdemia, Other (PSVT in 2011) Pulmonary: Yes: Sleep Apnea (risks for FRANSISCA) Renal/: Yes: Renal Inusuff Psych: Yes: Anxiety Endocrine: Yes: Diabetes Mellitus Additional Medical History: Condition Date Treating Physician Comments. ASHD promus stent pLAD 2008. CHF diastolic. DM. GERD. HHD. HTN. Hyperlipidemia. Morbid obesity. Negative MIBI ST September 2011 And May 2013. SVT - Past Surgical History Past Surgical History: Yes: Stent - Alcohol/Substance Use Hx Alcohol Use: No - Smoking History Smoking history: Never smoked Have you smoked in the past 12 months: No Aproximately how many cigarettes per day: 0 If you are a former smoker, when did you quit?: 40 yrs - Social History Usual Living Arrangement: Other (with nephew; her daughter is close to her) History of Recent Travel: No Home Medications - Allergies Allergies/Adverse Reactions: Allergies Allergy/AdvReac Type Severity Reaction Status Date / Time pregabalin [From Lyrica] Allergy Intermediate Verified 02/05/17 07:15 budesonide [From Symbicort] Allergy Verified 02/05/17 07:15 celecoxib [From Celebrex] Allergy Verified 02/05/17 07:15 formoterol fumarate Allergy Verified 02/05/17 07:15 [From Symbicort] sulfacetamide sodium Allergy Verified 02/05/17 07:15 [From Sulfamide] - Home Medications Home Medications: Ambulatory Orders Atorvastatin Ca [Lipitor] 40 mg PO HS tablet 11/12/15 Metformin HCl [Glucophage -] 500 mg PO BIDI tablet 11/12/15 Metoprolol Succinate [Toprol XL -] 50 mg PO DAILY tab.sr.24h 11/12/15 Ranitidine [Zantac -] 150 mg PO BID tablet 11/12/15 Sertraline HCl [Zoloft -] 25 mg PO DAILY tablet 11/12/15 Apixaban [Eliquis] 5 mg PO BID 12/22/15 Diltiazem Cd [Cardizem Cd -] 360 mg PO DAILY #60 cap.cd.24h 03/25/16 Furosemide [Lasix -] 40 mg PO DAILY 10/06/16 Dextromethorphan HBr [Robitussin] 15 mg PO BID #30 capsule 02/05/17 Family Disease History - Family Disease History Family History: Denies Review of Systems - Review of Systems Constitutional: reports: No Symptoms Eyes: reports: No Symptoms HENT: reports: No Symptoms Neck: reports: No Symptoms Cardiovascular: reports: Chest Pain Respiratory: reports: Cough, SOB on Exertion Gastrointestinal: reports: No Symptoms Genitourinary: reports: No Symptoms Breasts: reports: No Symptoms Reported Musculoskeletal: reports: Muscle Weakness Integumentary: reports: No Symptoms Neurological: reports: No Symptoms Endocrine: reports: No Symptoms Psychiatric: reports: Anxiety - Risk Factors Known Risk Factors: Yes: Age, Hypercholesterolemia, Hypertension, Physical Inactivity, Other (COPD) Vital Signs: Vital Signs Temperature 98 F 02/06/17 09:00 Pulse Rate 68 02/06/17 09:00 Respiratory Rate 18 02/06/17 09:00 Blood Pressure 148/84 02/06/17 09:00 O2 Sat by Pulse Oximetry (%) 97 02/06/17 00:15 Constitutional: Yes: Anxious, Obese Eyes: Yes: WNL HENT: Yes: WNL Neck: Yes: WNL Respiratory: Yes: Cough, Diminished Gastrointestinal: Yes: Soft Renal/: No: Anuria Cardiovascular: Yes: Regular Rate and Rhythm JVD: No Heart Sounds: Yes: S1, S2, S4 Murmur: Yes: Systolic Murmur, Grade 2 Musculoskeletal: Yes: Muscle Weakness Extremities: Yes: Cool Edema: No Peripheral Pulses WNL: Yes Integumentary: Yes: WNL Psychiatric: Yes: Alert, Oriented, Other (anxiety/depression) - Other Data Labs, Other Data: CBC, BMP 02/05/17 08:11 02/05/17 08:11 INR, PTT INR 1.17 (0.82-1.09) H 02/05/17 08:11 Troponin, BNP 02/05/17 18:40 Troponin I < 0.02 Troponin, BNP 02/05/17 18:40 Troponin I < 0.02 Imaging - Results Chest X-ray: Image Reviewed (no acute pathology) EKG: Image Reviewed (NSR; antierior changes; sinus arrhytjmia; no significant changes from 09/22) Problem List - Problems (1) Anxiety and depression Assessment/Plan: Pt was evicted from her home last week; this has caused her stress, and she feels the chest pain was due to this. Code(s): F41.8 - OTHER SPECIFIED ANXIETY DISORDERS (2) Chest pain Assessment/Plan: atypical (sharp; related to emotion). TNI negative; f/u seriall. EKG: no acute changes. ECHO 12/22: normal LVEF; diastolci dysfunction; moderate to severe pulmonary HTN. If TNi remains negative, pt may be followed as an outpt from cardiac standpoint. Code(s): R07.9 - CHEST PAIN, UNSPECIFIED Qualifiers: Chest pain type: unspecified Qualified Code(s): R07.9 - Chest pain, unspecified (3) Morbid obesity Code(s): E66.01 - MORBID (SEVERE) OBESITY DUE TO EXCESS CALORIES (4) UTI (urinary tract infection) Code(s): N39.0 - URINARY TRACT INFECTION, SITE NOT SPECIFIED Qualifiers: Urinary tract infection type: acute cystitis Hematuria presence: with hematuria Qualified Code(s): N30.01 - Acute cystitis with hematuria (5) COPD (chronic obstructive pulmonary disease) Code(s): J44.9 - CHRONIC OBSTRUCTIVE PULMONARY DISEASE, UNSPECIFIED (6) Diabetes Code(s): E11.9 - TYPE 2 DIABETES MELLITUS WITHOUT COMPLICATIONS Qualifiers: Diabetes mellitus type: type 2 Diabetes mellitus complication status: with hyperosmolarity Diabetes mellitus complication detail: without coma Diabetes mellitus intermediate accountant insulin use: without longterm use Qualified Code( s): E11.00 - Type 2 diabetes mellitus with hyperosmolarity without nonketotic hyperglycemic-hyperosmolar coma (NKHHC) (7) HTN (hypertension), benign Code(s): I10 - ESSENTIAL (PRIMARY) HYPERTENSION (8) Hyperlipidemia Code(s): E78.5 - HYPERLIPIDEMIA, UNSPECIFIED (9) Paroxysmal atrial fibrillation Code(s): I48.0 - PAROXYSMAL ATRIAL FIBRILLATION (10) Sleep apnea Code(s): G47.30 - SLEEP APNEA, UNSPECIFIED
== END 2017-02-06 11:57 | disposition home or self-care (01) ==
LOC: JER 06:56 → JERBED 11:17 → J4W 13:34
PROVIDERS: ADMIT Internal Medicine; ATTEND Internal Medicine
DX: R07.9 Chest pain, unspecified (principal); I25.10 Atherosclerotic heart disease of native coronary artery without angina pectoris; I11.0 Hypertensive heart disease with heart failure; Z95.5 Presence of coronary angioplasty implant and graft; I48.0 Paroxysmal atrial fibrillation; Z79.01 Long term (current) use of anticoagulants; E78.5 Hyperlipidemia, unspecified; E11.9 Type 2 diabetes mellitus without complications; Z79.84 Long term (current) use of oral hypoglycemic drugs; G47.30 Sleep apnea, unspecified; N30.01 Acute cystitis with hematuria; I47.1 Supraventricular tachycardia; J44.9 Chronic obstructive pulmonary disease, unspecified; Z68.35 Body mass index [BMI] 35.0-35.9, adult; Z86.73 Personal history of transient ischemic attack (TIA), and cerebral infarction without residual deficits
CPT/HCPCS: 36415; 71010-TC; 76705-TC; 80053; 81003; 81015; 82550; 83690; 83880; 84484; 85025; 85610; 93005; 93010; 99285-25; G0378

== ENCOUNTER 2017-03-15 14:25 | Observation (INO) | payer OTHER ==
[2017-03-15 14:28] VITALS: BMI 53.1
--- NOTE | 2017-03-15 15:25 | PDOC ---
History of Present Illness - General Chief Complaint: Chest Pain Stated Complaint: CHEST PAIN, LT ARM PAIN Time Seen by Provider: 03/15/17 14:44 - History of Present Illness Initial Comments: 03/15/17 15:27 Chief complaint chest pain History of present illness: 71 years old past medical history significant for CAD status post stent, hypertension, hyperlipidemia, PSVT 2011, renal insufficiency, diabetes, anxiety, sleep apnea presents to the emergency department with 1 day history of chest pain after eating lunch. Pain is graded as pressure-like central to left sided radiates to the left arm moderate in severity pressure-like in nature no exacerbating or alleviating factors. This is very similar to patient's previous episodes of chest pain. Mild nausea mild lightheadedness no diaphoresis no ripping tearing sensation. No history of PE DVT. No other PE DVT risk factors. Past History - Past Medical History Allergies/Adverse Reactions: Allergies Allergy/AdvReac Type Severity Reaction Status Date / Time pregabalin [From Lyrica] Allergy Intermediate Verified 03/15/17 14:28 budesonide [From Symbicort] Allergy Verified 03/15/17 14:28 celecoxib [From Celebrex] Allergy Verified 03/15/17 14:28 formoterol fumarate Allergy Verified 03/15/17 14:28 [From Symbicort] sulfacetamide sodium Allergy Verified 03/15/17 14:28 [From Sulfamide] Home Medications: Ambulatory Orders Atorvastatin Ca [Lipitor] 40 mg PO HS tablet 11/12/15 Metformin HCl [Glucophage -] 500 mg PO BIDI tablet 11/12/15 Metoprolol Succinate [Toprol XL -] 50 mg PO DAILY tab.sr.24h 11/12/15 Ranitidine [Zantac -] 150 mg PO BID tablet 11/12/15 Sertraline HCl [Zoloft -] 25 mg PO DAILY tablet 11/12/15 Apixaban [Eliquis] 5 mg PO BID 12/22/15 Diltiazem Cd [Cardizem Cd -] 360 mg PO DAILY #60 cap.cd.24h 03/25/16 Furosemide [Lasix -] 40 mg PO DAILY 10/06/16 Dextromethorphan HBr [Robitussin] 15 mg PO BID #30 capsule 02/05/17 Anemia: No Asthma: No Cancer: No Cardiac Disorders: Yes (2009 STENT X1,, LINQ) 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) COPD: No CHF: No DVT: No Dementia: No Diabetes: Yes GI Disorders: Yes (UMBILICAL HERNIA) Disorders: No HTN: Yes Hypercholesterolemia: Yes Liver Disease: No Seizures: No Thyroid Disease: No - Surgical History Abdominal Surgery: No Appendectomy: No Cardiac Surgery: Yes (STENT X 1, LOOP RECORDER INSERTION) Cholecystectomy: No Lung Surgery: Yes (biopsy May 2013) Neurologic Surgery: Yes (brain aneurysm clipped) Orthopedic Surgery: No - Immunization History Td Vaccination: Yes Immunization Up to Date: Yes - Suicide/Smoking/Psychosocial Hx Smoking Status: Yes Smoking History: Never smoked Years of Tobacco Use: 0 Have you smoked in the past 12 months: No Number of Cigarettes Smoked Daily: 0 If you are a former smoker, when did you quit?: 40 yrs Cigars Per Day: 0 'Breaking Loose' booklet given: 08/17/13 Hx Alcohol Use: No Drug/Substance Use Hx: No Substance Use Type: None Hx Substance Use Treatment: No Review of Systems - Review of Systems Comments:: 03/15/17 15:27 ROS: A complete review of 10 out of 10 review of systems is taken and is negative apart from what is previously mentioned below and in the HPI. *Physical Exam - Vital Signs Last Vital Signs Temp Pulse Resp BP Pulse Ox 97.9 F 74 18 147/67 99 03/15/17 14:26 03/15/17 14:26 03/15/17 14:26 03/15/17 14:26 03/15/17 14:26 - Physical Exam Comments: 03/15/17 15:28 Vitals: Triage Vital signs reviewed General Appearance: no acute distress, well nourished well developed, Head: Atraumatic, Throat: Posterior oropharynx without erythema, mucous membranes moist, Neck: Supple;No Nucal rigidity Chest Wall: Nontender Cardiac: Regular rate and rhythym, no murmurs, no rubs, no gallops, Lungs: Clear to auscultation bilateral, good air movement bilaterally, Abdomen: Soft, non distended, normal bowel sounds, non tender to palpation Extremities: Full range of motion to all extremities, no cyanosis, clubbing, or edema Skin: Warm and dry, no rashes or lesions, no rash, no petechiae Neuro: AOX3; Cranial Nerves 2-12 grossly intact, Strength intact to all extremities, Sensation intact to all extremities,gait normal Psych: normal mood, normal affect Heart Score/ECG Review - ECG Impressions Comment:: 03/15/17 15:28 EKG performed at 1432. Sinus rhythm rate of 66 normal sinus rhythm. Normal OH interval 156, normal QRS 80, normal QTC 434, evidence of septal infarct age indeterminate, no acute ST elevations or T-wave inversions. ED Treatment Course - LABORATORY CBC & Chemistry Diagram: 03/15/17 15:00 03/15/17 15:00 - RADIOLOGY Radiology Studies Ordered: Category Date Time Status CXRPORT [CHEST X-RAY PORTABLE*] [RAD] Stat Radiology 03/15/17 14:45 Ordered Medical Decision Making - Medical Decision Making 03/15/17 15:31 Heart score 4 Multiple cardiac risk factors. Presents with chest pain. EKG nonischemic. We'll check labs treat with subungual Nitrol if no response morphine. Patient cannot take aspirin secondary previous cerebral aneurysm. She is a [employer] [place]. 03/15/17 17:06 Heart score 5 very significant past cardiac history. Chest pain improving with sublingual nitroglycerin was for No ischemic EKG changes noted Case discussed with patient's primary care provider. Will observe overnight for further cardiac evaluation. *DC/Admit/Observation/Transfer Diagnosis at time of Disposition: Chest pain Qualifiers: Chest pain type: unspecified Qualified Code(s): R07.9 - Chest pain, unspecified - Discharge Dispostion Disposition: HOME Admit: Yes - Referrals - Patient Instructions - Post Discharge Activity
[2017-03-15] MEDS ORDERED: NITROGLYCERIN SUBLINGUAL 1/150 0.4 MG TAB ONE (15:38)
[2017-03-15] MEDS: NITROGLYCERIN SUBLINGUAL 1/200 0.3 MG BTL SL PRN ×2 (15:43→17:30)
[2017-03-15 15:47] LABS: BASO % 0.8 % (0-2.0); EOS % 1.4 % (0-4.5); HEMATOCRIT 45.1 % (32.4-45.2); HEMOGLOBIN 15.2 GM/dL (10.7-15.3); LYMPH % 20.4 % (8-40); MCHC 33.7 g/dl (32.0-36.0); MEAN CELL VOLUME 91.9 fl (80-96); MEAN PLT VOLUME 8.2 fl (7.5-11.1); MONO % 7.1 % (3.8-10.2); NEUT % 70.3 % (42.8-82.8); PLATELET COUNT 220 K/MM3 (134-434); RDW 14.5 % (11.6-15.6); WHITE BLOOD COUNT 6.8 K/mm3 (4.0-10.0)
[2017-03-15 16:34] LABS: ALBUMIN 3.4 g/dl (3.4-5.0); ALK PHOS 70 U/L (45-117); ANION GAP 10 (8-16); BILIRUBIN,TOTAL 0.6 mg/dL (0.2-1.0); BLOOD UREA NITROGEN 19 mg/dL (7-18); CALCIUM 8.7 mg/dL (8.5-10.1); CHLORIDE 105 mmol/L (98-107); CO2 27 mmol/L (21-32); CREATININE 1.1 mg/dL (0.55-1.02); GLUCOSE,RANDOM 189 mg/dL (74-106); SGPT/ALT 33 U/L (12-78); SODIUM 142 mmol/L (136-145); TOT PROT 7.1 g/dl (6.4-8.2)
[2017-03-15 16:41] LABS: POTASSIUM 4.5 mmol/L (3.5-5.1); SGOT/AST 27 U/L (15-37)
--- NOTE | 2017-03-15 18:51 | HP ---
Admitting History and Physical - Primary Care Physician PCP: Yamilet Engle - Admission Chief Complaint: chest pain History of Present Illness: 71 years old past medical history significant for CAD status post stent, hypertension, hyperlipidemia, PSVT 2011, renal insufficiency, diabetes, anxiety , sleep apnea presents to the emergency department with 1 day history of chest pain after eating lunch. Pain is graded as pressure-like central to left sided radiates to the left arm moderate in severity pressure-like in nature no exacerbating or alleviating factors. This is very similar to patient's previous episodes of chest pain. pt was visiting her daughter...very anxious about home situation she needs to be placed - Past Medical History Cardiovascular: Yes: CAD, HTN, Hyperlipdemia, Other (PSVT in 2011) Pulmonary: Yes: Sleep Apnea (risks for FRANSISCA) Renal/: Yes: Renal Inusuff Psych: Yes: Anxiety Endocrine: Yes: Diabetes Mellitus - Past Surgical History Past Surgical History: Yes: Stent - Smoking History Smoking history: Never smoked Have you smoked in the past 12 months: No Aproximately how many cigarettes per day: 0 If you are a former smoker, when did you quit?: 40 yrs - Alcohol/Substance Use Hx Alcohol Use: No - Social History History of Recent Travel: No Home Medications - Allergies Allergies/Adverse Reactions: Allergies Allergy/AdvReac Type Severity Reaction Status Date / Time pregabalin [From Lyrica] Allergy Intermediate Verified 03/15/17 14:28 budesonide [From Symbicort] Allergy Verified 03/15/17 14:28 celecoxib [From Celebrex] Allergy Verified 03/15/17 14:28 formoterol fumarate Allergy Verified 03/15/17 14:28 [From Symbicort] sulfacetamide sodium Allergy Verified 03/15/17 14:28 [From Sulfamide] - Home Medications Home Medications: Ambulatory Orders Atorvastatin Ca [Lipitor] 40 mg PO HS tablet 11/12/15 Metformin HCl [Glucophage -] 500 mg PO BIDI tablet 11/12/15 Metoprolol Succinate [Toprol XL -] 50 mg PO DAILY tab.sr.24h 11/12/15 Ranitidine [Zantac -] 150 mg PO BID tablet 11/12/15 Sertraline HCl [Zoloft -] 25 mg PO DAILY tablet 11/12/15 Apixaban [Eliquis] 5 mg PO BID 12/22/15 Diltiazem Cd [Cardizem Cd -] 360 mg PO DAILY #60 cap.cd.24h 03/25/16 Furosemide [Lasix -] 40 mg PO DAILY 10/06/16 Dextromethorphan HBr [Robitussin] 15 mg PO BID #30 capsule 02/05/17 Physical Examination Vital Signs: Vital Signs Temperature 97.9 F 03/15/17 14:26 Pulse Rate 65 03/15/17 17:27 Respiratory Rate 20 03/15/17 17:27 Blood Pressure 156/73 03/15/17 17:27 O2 Sat by Pulse Oximetry (%) 98 03/15/17 17:27 Constitutional: Yes: No Distress HENT: Yes: Atraumatic Neck: Yes: Supple Cardiovascular: Yes: Regular Rate and Rhythm Respiratory: Yes: CTA Bilaterally Gastrointestinal: Yes: Normal Bowel Sounds Extremities: Yes: WNL Neurological: Yes: Alert, Oriented Labs: CBC, BMP 03/15/17 15:00 03/15/17 15:00 Problem List - Problems (1) Chest pain Assessment/Plan: tele monitoring seria cardiac enzymes cardiology consult Code(s): R07.9 - CHEST PAIN, UNSPECIFIED Qualifiers: Chest pain type: unspecified Qualified Code(s): R07.9 - Chest pain, unspecified (2) Anxiety and depression Assessment/Plan: on meds stable Code(s): F41.8 - OTHER SPECIFIED ANXIETY DISORDERS (3) Morbid obesity Code(s): E66.01 - MORBID (SEVERE) OBESITY DUE TO EXCESS CALORIES (4) COPD (chronic obstructive pulmonary disease) Code(s): J44.9 - CHRONIC OBSTRUCTIVE PULMONARY DISEASE, UNSPECIFIED (5) Diabetes Assessment/Plan: bgms on metformin Code(s): E11.9 - TYPE 2 DIABETES MELLITUS WITHOUT COMPLICATIONS Qualifiers: (6) Hyperlipidemia Assessment/Plan: on meds stable Code(s): E78.5 - HYPERLIPIDEMIA, UNSPECIFIED (7) Paroxysmal SVT (supraventricular tachycardia) Assessment/Plan: on meds also on blood thinner Code(s): I47.1 - SUPRAVENTRICULAR TACHYCARDIA Assessment/Plan Laboratory Tests 03/15/17 03/15/17 15:00 15:00 WBC 6.8 RBC 4.90 Hgb 15.2 Hct 45.1 MCV 91.9 MCH 31.0 MCHC 33.7 RDW 14.5 Plt Count 220 MPV 8.2 Neutrophils % 70.3 Lymphocytes % 20.4 Monocytes % 7.1 Eosinophils % 1.4 Basophils % 0.8 Sodium 142 Potassium 4.5 Chloride 105 Carbon Dioxide 27 Anion Gap 10 BUN 19 H D Creatinine 1.1 H D Creat Clearance w eGFR 48.82 Random Glucose 189 H Calcium 8.7 Total Bilirubin 0.6 AST 27 D ALT 33 D Alkaline Phosphatase 70 Troponin I < 0.02 Total Protein 7.1 Albumin 3.4 Active Medications Generic Name Dose Route Start Last Admin Trade Name Freq PRN Reason Stop Dose Admin Apixaban 5 mg 03/15/17 22:00 Eliquis - PO BID [facility] Atorvastatin Calcium 40 mg 03/15/17 22:00 Lipitor - PO HS [facility] Diltiazem HCl 360 mg 03/16/17 10:00 Cardizem Cd - PO DAILY [facility] Furosemide 40 mg 03/16/17 10:00 Lasix - PO DAILY [facility] Metformin HCl 500 mg 03/16/17 07:00 Glucophage - PO BIDI [facility] Metoprolol Succinate 50 mg 03/16/17 10:00 Toprol Xl - PO DAILY [facility] Nitroglycerin 0.3 mg 03/15/17 15:24 03/15/17 17:30 Nitrostat - SL 0.3 mg Q5M PRN Administration FOR CHEST PAIN Ranitidine HCl 150 mg 03/15/17 22:00 Zantac - PO BID [facility] Sertraline HCl 25 mg 03/16/17 10:00 Zoloft - PO DAILY [facility]
[2017-03-15] MEDS: RANITIDINE HCL 150 MG TABLET (FP) PO SCH (21:05)
[2017-03-15] MEDS: ATORVASTATIN CA 40 MG TABLET (FP) PO SCH (21:05)
[2017-03-15] MEDS: APIXABAN 5 MG TABLET PO SCH (21:05)
--- NOTE | 2017-03-15 21:08 | CON.CARD ---
Consult Consult Specialty:: Cardiology Reason for Consultation:: cp - History of Present Illness History of Present Illness: History of present illness: 71 years old past medical history significant for CAD status post stent, hypertension, hyperlipidemia, ?PSVT 2011, AF 2015, renal insufficiency, diabetes, anxiety, sleep apnea presents to the emergency department with 1 day history of chest pain after eating lunch. Pain is graded as pressure-like central to left sided radiates to the left arm moderate in severity pressure-like in nature no exacerbating or alleviating factors. This is very similar to patient's previous episodes of chest pain. Mild nausea mild lightheadedness no diaphoresis no ripping tearing sensation. No history of PE DVT. No other PE DVT risk factors. PMH ASHD promus stent pLAD 2008 Atrial fibrillation 2016 CHF diastolic DM GERD HHD HTN Hyperlipidemia Morbid obesity Negative MIBI ST September 2011, March 2015 Meds; Apixaban (Eliquis) 5 MG Oral Tablet Atorvastatin Calcium (Lipitor) 40 MG Oral Tablet Diltiazem HCl Coated Beads (Cardizem CD) 180 MG Oral Capsule Extended Release 24 Hour Furosemide (Lasix) 20 MG Oral Tablet MetFORMIN HCl 500 MG Oral Tablet Metoprolol Succinate (Metoprolol Succinate ER) 50 MG Oral Tablet Extended Release 24 Hour [place]-3 Fatty Acids (Fish Oil) 1200 MG Oral Capsule RaNITidine HCl 150 MG Oral Tablet Sertraline HCl 25 MG Oral Tablet - History Source History Provided By: Patient, Medical Record - Past Medical History Cardio/Vascular: Yes: AFIB, CAD, HTN, Hyperlipdemia, Other (PSVT in 2011) Pulmonary: Yes: Sleep Apnea (risks for FRANSISCA) Renal/: Yes: Renal Inusuff Psych: Yes: Anxiety Endocrine: Yes: Diabetes Mellitus Additional Medical History: Condition Date Treating Physician Comments. ASHD promus stent pLAD 2008. CHF diastolic. DM. GERD. HHD. HTN. Hyperlipidemia. Morbid obesity. Negative MIBI ST September 2011 And May 2013. SVT - Past Surgical History Past Surgical History: Yes: Stent - Alcohol/Substance Use Hx Alcohol Use: No - Smoking History Smoking history: Never smoked Have you smoked in the past 12 months: No Aproximately how many cigarettes per day: 0 If you are a former smoker, when did you quit?: 40 yrs - Social History Usual Living Arrangement: Other (with nephew; her daughter is close to her) History of Recent Travel: No Home Medications - Allergies Allergies/Adverse Reactions: Allergies Allergy/AdvReac Type Severity Reaction Status Date / Time pregabalin [From Lyrica] Allergy Intermediate Verified 03/15/17 14:28 budesonide [From Symbicort] Allergy Verified 03/15/17 14:28 celecoxib [From Celebrex] Allergy Verified 03/15/17 14:28 formoterol fumarate Allergy Verified 03/15/17 14:28 [From Symbicort] sulfacetamide sodium Allergy Verified 03/15/17 14:28 [From Sulfamide] - Home Medications Home Medications: Ambulatory Orders Atorvastatin Ca [Lipitor] 40 mg PO HS tablet 11/12/15 Metformin HCl [Glucophage -] 500 mg PO BIDI tablet 11/12/15 Metoprolol Succinate [Toprol XL -] 50 mg PO DAILY tab.sr.24h 11/12/15 Ranitidine [Zantac -] 150 mg PO BID tablet 11/12/15 Sertraline HCl [Zoloft -] 25 mg PO DAILY tablet 11/12/15 Apixaban [Eliquis] 5 mg PO BID 12/22/15 Diltiazem Cd [Cardizem Cd -] 360 mg PO DAILY #60 cap.cd.24h 03/25/16 Furosemide [Lasix -] 40 mg PO DAILY 10/06/16 Dextromethorphan HBr [Robitussin] 15 mg PO BID #30 capsule 02/05/17 Review of Systems - Review of Systems Constitutional: reports: No Symptoms Eyes: reports: No Symptoms HENT: reports: No Symptoms Neck: reports: No Symptoms Cardiovascular: reports: Chest Pain (cp similar to patients angina) Gastrointestinal: reports: No Symptoms Genitourinary: reports: No Symptoms Breasts: reports: No Symptoms Reported Musculoskeletal: reports: No Symptoms Integumentary: reports: No Symptoms Neurological: reports: No Symptoms Endocrine: reports: No Symptoms Hematology/Lymphatic: reports: No Symptoms Psychiatric: reports: No Symptoms Vital Signs: Vital Signs Temperature 98.9 F 03/15/17 20:33 Pulse Rate 65 03/15/17 20:33 Respiratory Rate 20 03/15/17 20:33 Blood Pressure 152/69 03/15/17 20:33 O2 Sat by Pulse Oximetry (%) 100 03/15/17 19:50 Constitutional: Yes: Well Nourished, No Distress, Calm Eyes: Yes: WNL, Conjunctiva Clear, EOM Intact HENT: Yes: WNL, Atraumatic, Normocephalic Neck: Yes: WNL, Supple, Trachea Midline Respiratory: Yes: WNL, Regular, CTA Bilaterally Gastrointestinal: Yes: WNL, Normal Bowel Sounds Renal/: Yes: WNL Cardiovascular: Yes: WNL, Regular Rate and Rhythm Musculoskeletal: Yes: WNL Extremities: Yes: WNL Integumentary: Yes: WNL Neurological: Yes: WNL, Alert, Oriented ...Motor Strength: WNL Psychiatric: Yes: WNL, Alert, Oriented - Other Data Labs, Other Data: CBC, BMP 03/15/17 15:00 03/15/17 15:00 Troponin, BNP 03/15/17 03/15/17 15:00 20:03 Troponin I < 0.02 < 0.02 Troponin, BNP 03/15/17 03/15/17 15:00 20:03 Troponin I < 0.02 < 0.02 Laboratory Tests 03/15/17 03/15/17 03/15/17 15:00 15:00 20:03 WBC 6.8 RBC 4.90 Hgb 15.2 Hct 45.1 MCV 91.9 MCH 31.0 MCHC 33.7 RDW 14.5 Plt Count 220 MPV 8.2 Neutrophils % 70.3 Lymphocytes % 20.4 Monocytes % 7.1 Eosinophils % 1.4 Basophils % 0.8 Sodium 142 Potassium 4.5 Chloride 105 Carbon Dioxide 27 Anion Gap 10 BUN 19 H D Creatinine 1.1 H D Creat Clearance w eGFR 48.82 POC Glucometer Random Glucose 189 H Calcium 8.7 Total Bilirubin 0.6 AST 27 D ALT 33 D Alkaline Phosphatase 70 Creatine Kinase 48 Troponin I < 0.02 < 0.02 Total Protein 7.1 Albumin 3.4 03/15/17 03/16/17 20:54 06:00 WBC RBC Hgb Hct MCV MCH MCHC RDW Plt Count MPV Neutrophils % Lymphocytes % Monocytes % Eosinophils % Basophils % Sodium Potassium Chloride Carbon Dioxide Anion Gap BUN Creatinine Creat Clearance w eGFR POC Glucometer 151 138 Random Glucose Calcium Total Bilirubin AST ALT Alkaline Phosphatase Creatine Kinase Troponin I Total Protein Albumin Imaging - Results Chest X-ray: Image Reviewed (no i/e) EKG: Image Reviewed (sr old septsl mi) Problem List - Problems (1) Chest pain Code(s): R07.9 - CHEST PAIN, UNSPECIFIED Qualifiers: Chest pain type: unspecified Qualified Code(s): R07.9 - Chest pain, unspecified (2) Anxiety and depression Code(s): F41.8 - OTHER SPECIFIED ANXIETY DISORDERS (3) Morbid obesity Code(s): E66.01 - MORBID (SEVERE) OBESITY DUE TO EXCESS CALORIES (4) UTI (urinary tract infection) Code(s): N39.0 - URINARY TRACT INFECTION, SITE NOT SPECIFIED Qualifiers: Urinary tract infection type: acute cystitis Hematuria presence: with hematuria Qualified Code(s): N30.01 - Acute cystitis with hematuria (5) COPD (chronic obstructive pulmonary disease) Code(s): J44.9 - CHRONIC OBSTRUCTIVE PULMONARY DISEASE, UNSPECIFIED (6) Diabetes Code(s): E11.9 - TYPE 2 DIABETES MELLITUS WITHOUT COMPLICATIONS Qualifiers: (7) HTN (hypertension), benign Code(s): I10 - ESSENTIAL (PRIMARY) HYPERTENSION (8) Hyperlipidemia Code(s): E78.5 - HYPERLIPIDEMIA, UNSPECIFIED (9) Obesity Code(s): E66.9 - OBESITY, UNSPECIFIED (10) Paroxysmal SVT (supraventricular tachycardia) Code(s): I47.1 - SUPRAVENTRICULAR TACHYCARDIA (11) Paroxysmal atrial fibrillation Code(s): I48.0 - PAROXYSMAL ATRIAL FIBRILLATION (12) SVT (supraventricular tachycardia) Code(s): I47.1 - SUPRAVENTRICULAR TACHYCARDIA (13) Sleep apnea Code(s): G47.30 - SLEEP APNEA, UNSPECIFIED Assessment/Plan ASHD promus stent pLAD 2008 Atrial fibrillation 2016 CHF diastolic DM GERD HHD HTN Hyperlipidemia Morbid obesity Negative MIBI ST September 2011, March 2015 Plan r/o mi MIBI ST in AM cont present rx
[2017-03-16] MEDS: metFORMIN HCL 500 MG TABLET (FP) PO SCH ×2 (06:01→17:08)
[2017-03-16] MEDS: SERTRALINE HCL 25 MG TABLET (FP) PO SCH (09:59)
[2017-03-16] MEDS: METOPROLOL SUCCINATE 50 MG TAB.SR.24H (FP) PO SCH (09:59)
[2017-03-16] MEDS: FUROSEMIDE 20 MG TABLET (FP) PO SCH (09:59)
[2017-03-16] MEDS: RANITIDINE HCL 150 MG TABLET (FP) PO SCH ×2 (09:59→22:09)
[2017-03-16] MEDS: APIXABAN 5 MG TABLET PO SCH ×2 (09:59→22:08)
--- NOTE | 2017-03-16 12:02 | PN ---
Progress Note, Physician History of Present Illness: History of present illness: 71 years old past medical history significant for CAD status post stent, hypertension, hyperlipidemia, ?PSVT 2011, AF 2015, renal insufficiency, diabetes, anxiety, sleep apnea presents to the emergency department with 1 day history of chest pain after eating lunch. Pain is graded as pressure-like central to left sided radiates to the left arm moderate in severity pressure-like in nature no exacerbating or alleviating factors. This is very similar to patient's previous episodes of chest pain. Mild nausea mild lightheadedness no diaphoresis no ripping tearing sensation. No history of PE DVT. No other PE DVT risk factors. PMH ASHD promus stent pLAD 2008 Atrial fibrillation 2015 CHF diastolic DM GERD HHD HTN Hyperlipidemia Morbid obesity Negative MIBI ST September 2011, March 2015 Meds; Apixaban (Eliquis) 5 MG Oral Tablet Atorvastatin Calcium (Lipitor) 40 MG Oral Tablet Diltiazem HCl Coated Beads (Cardizem CD) 180 MG Oral Capsule Extended Release 24 Hour Furosemide (Lasix) 20 MG Oral Tablet MetFORMIN HCl 500 MG Oral Tablet Metoprolol Succinate (Metoprolol Succinate ER) 50 MG Oral Tablet Extended Release 24 Hour [place]-3 Fatty Acids (Fish Oil) 1200 MG Oral Capsule RaNITidine HCl 150 MG Oral Tablet Sertraline HCl 25 MG Oral Tablet - Current Medication List Current Medications: Active Medications Apixaban (Eliquis -) 5 mg PO BID [facility] Last Admin: 03/16/17 09:59 Dose: 5 mg Atorvastatin Calcium (Lipitor -) 40 mg PO HS [facility] Last Admin: 03/15/17 21:05 Dose: 40 mg Diltiazem HCl (Cardizem Cd -) 360 mg PO DAILY [facility] Last Admin: 03/16/17 09:59 Dose: 360 mg Furosemide (Lasix -) 40 mg PO DAILY [facility] Last Admin: 03/16/17 09:59 Dose: 40 mg Metformin HCl (Glucophage -) 500 mg PO BIDI [facility] Last Admin: 03/16/17 06:01 Dose: 500 mg Metoprolol Succinate (Toprol Xl -) 50 mg PO DAILY [facility] Last Admin: 03/16/17 09:59 Dose: 50 mg Nitroglycerin (Nitrostat -) 0.3 mg SL Q5M PRN PRN Reason: FOR CHEST PAIN Last Admin: 03/15/17 17:30 Dose: 0.3 mg Ranitidine HCl (Zantac -) 150 mg PO BID [facility] Last Admin: 03/16/17 09:59 Dose: 150 mg Sertraline HCl (Zoloft -) 25 mg PO DAILY [facility] Last Admin: 03/16/17 09:59 Dose: 25 mg - Objective Vital Signs: Vital Signs Temperature 98.2 F 03/16/17 08:10 Pulse Rate 74 03/16/17 08:10 Respiratory Rate 14 03/16/17 08:10 Blood Pressure 120/66 03/16/17 08:10 O2 Sat by Pulse Oximetry (%) 100 03/16/17 02:44 Eyes: Yes: WNL, Conjunctiva Clear, EOM Intact HENT: Yes: WNL, Atraumatic, Normocephalic Neck: Yes: WNL, Supple, Trachea Midline Cardiovascular: Yes: WNL, Regular Rate and Rhythm Respiratory: Yes: WNL, Regular, CTA Bilaterally Gastrointestinal: Yes: WNL, Normal Bowel Sounds Genitourinary: Yes: WNL Musculoskeletal: Yes: WNL Extremities: Yes: WNL Edema: No Integumentary: Yes: WNL Neurological: Yes: WNL, Alert, Oriented ...Motor Strength: WNL Psychiatric: Yes: WNL Labs: CBC, BMP 03/15/17 15:00 03/15/17 15:00 Problem List - Problems (1) Chest pain Code(s): R07.9 - CHEST PAIN, UNSPECIFIED Qualifiers: Chest pain type: unspecified Qualified Code(s): R07.9 - Chest pain, unspecified (2) Anxiety and depression Code(s): F41.8 - OTHER SPECIFIED ANXIETY DISORDERS (3) Morbid obesity Code(s): E66.01 - MORBID (SEVERE) OBESITY DUE TO EXCESS CALORIES (4) UTI (urinary tract infection) Code(s): N39.0 - URINARY TRACT INFECTION, SITE NOT SPECIFIED Qualifiers: Urinary tract infection type: acute cystitis Hematuria presence: with hematuria Qualified Code(s): N30.01 - Acute cystitis with hematuria (5) COPD (chronic obstructive pulmonary disease) Code(s): J44.9 - CHRONIC OBSTRUCTIVE PULMONARY DISEASE, UNSPECIFIED (6) Diabetes Code(s): E11.9 - TYPE 2 DIABETES MELLITUS WITHOUT COMPLICATIONS Qualifiers: (7) HTN (hypertension), benign Code(s): I10 - ESSENTIAL (PRIMARY) HYPERTENSION (8) Hyperlipidemia Code(s): E78.5 - HYPERLIPIDEMIA, UNSPECIFIED (9) Obesity Code(s): E66.9 - OBESITY, UNSPECIFIED (10) Paroxysmal SVT (supraventricular tachycardia) Code(s): I47.1 - SUPRAVENTRICULAR TACHYCARDIA (11) Paroxysmal atrial fibrillation Code(s): I48.0 - PAROXYSMAL ATRIAL FIBRILLATION (12) SVT (supraventricular tachycardia) Code(s): I47.1 - SUPRAVENTRICULAR TACHYCARDIA (13) Sleep apnea Code(s): G47.30 - SLEEP APNEA, UNSPECIFIED Assessment/Plan ASHD promus stent pLAD 2008 Atrial fibrillation 2015 CHF diastolic DM GERD HHD HTN Hyperlipidemia Morbid obesity Negative MIBI ST September 2011, March 2015 Plan r/o mi MIBI ST in AM cont present rx
--- NOTE | 2017-03-16 12:37 | EKG ---
Test Reason : Blood Pressure : / mmHG Vent. Rate : 066 BPM Atrial Rate : 066 BPM P-R Int : 156 ms QRS Dur : 080 ms QT Int : 414 ms P-R-T Axes : 050 -25 077 degrees QTc Int : 434 ms NORMAL SINUS RHYTHM SEPTAL INFARCT (CITED ON OR BEFORE 23-MAR-2016) ABNORMAL ECG WHEN COMPARED WITH ECG OF 05-FEB-2017 07:10, NO SIGNIFICANT CHANGE WAS FOUND Confirmed by DENNIS DAVIS, NADIA ([id number]) on 03/16/2017 12:36:53 PM Referred By: Confirmed By:NADIA COLLINS MD
[2017-03-16] MEDS: ACETAMINOPHEN 325 MG TABLET (FP) PO PRN ×2 (14:55→23:30)
[2017-03-16] MEDS: NYSTATIN POWDER 100,000 UNITS/GM - 15 GM TOPICAL POWDER TP SCH (17:07)
--- NOTE | 2017-03-16 17:47 | PN ---
Progress Note, Physician History of Present Illness: feeling good - Current Medication List Current Medications: Active Medications Acetaminophen (Tylenol -) 650 mg PO Q4H PRN PRN Reason: FEVER OR PAIN Last Admin: 03/16/17 14:55 Dose: 650 mg Apixaban (Eliquis -) 5 mg PO BID [facility] Last Admin: 03/16/17 09:59 Dose: 5 mg Atorvastatin Calcium (Lipitor -) 40 mg PO HS [facility] Last Admin: 03/15/17 21:05 Dose: 40 mg Diltiazem HCl (Cardizem Cd -) 360 mg PO DAILY [facility] Last Admin: 03/16/17 09:59 Dose: 360 mg Furosemide (Lasix -) 40 mg PO DAILY [facility] Last Admin: 03/16/17 09:59 Dose: 40 mg Metformin HCl (Glucophage -) 500 mg PO BIDI [facility] Last Admin: 03/16/17 17:08 Dose: 500 mg Metoprolol Succinate (Toprol Xl -) 50 mg PO DAILY [facility] Last Admin: 03/16/17 09:59 Dose: 50 mg Nitroglycerin (Nitrostat -) 0.3 mg SL Q5M PRN PRN Reason: FOR CHEST PAIN Last Admin: 03/15/17 17:30 Dose: 0.3 mg Nystatin (Nystop Powder -) 1 applic TP DAILY [facility] Last Admin: 03/16/17 17:07 Dose: 1 applic Ranitidine HCl (Zantac -) 150 mg PO BID [facility] Last Admin: 03/16/17 09:59 Dose: 150 mg Sertraline HCl (Zoloft -) 25 mg PO DAILY [facility] Last Admin: 03/16/17 09:59 Dose: 25 mg - Objective Vital Signs: Vital Signs Temperature 98.7 F 03/16/17 14:00 Pulse Rate 62 03/16/17 14:00 Respiratory Rate 18 03/16/17 14:00 Blood Pressure 120/53 03/16/17 14:00 O2 Sat by Pulse Oximetry (%) 96 03/16/17 10:00 Constitutional: Yes: Calm HENT: Yes: Atraumatic Neck: Yes: Supple Cardiovascular: Yes: Regular Rate and Rhythm Respiratory: Yes: CTA Bilaterally Gastrointestinal: Yes: Normal Bowel Sounds Extremities: Yes: WNL Neurological: Yes: Alert, Oriented Labs: CBC, BMP 03/15/17 15:00 03/15/17 15:00 Problem List - Problems (1) Chest pain Assessment/Plan: tele monitoring troponins negative cardio note reviewed Code(s): R07.9 - CHEST PAIN, UNSPECIFIED Qualifiers: Chest pain type: unspecified Qualified Code(s): R07.9 - Chest pain, unspecified (2) Anxiety and depression Assessment/Plan: on meds stable Code(s): F41.8 - OTHER SPECIFIED ANXIETY DISORDERS (3) Morbid obesity Code(s): E66.01 - MORBID (SEVERE) OBESITY DUE TO EXCESS CALORIES (4) COPD (chronic obstructive pulmonary disease) Code(s): J44.9 - CHRONIC OBSTRUCTIVE PULMONARY DISEASE, UNSPECIFIED (5) Diabetes Assessment/Plan: bgms on metformin Code(s): E11.9 - TYPE 2 DIABETES MELLITUS WITHOUT COMPLICATIONS Qualifiers: (6) Hyperlipidemia Code(s): E78.5 - HYPERLIPIDEMIA, UNSPECIFIED (7) Paroxysmal SVT (supraventricular tachycardia) Code(s): I47.1 - SUPRAVENTRICULAR TACHYCARDIA
[2017-03-16] MEDS: ATORVASTATIN CA 40 MG TABLET (FP) PO SCH (22:09)
[2017-03-17] MEDS: metFORMIN HCL 500 MG TABLET (FP) PO SCH (06:09)
[2017-03-17] MEDS: NYSTATIN POWDER 100,000 UNITS/GM - 15 GM TOPICAL POWDER TP SCH (08:30)
[2017-03-17] MEDS ORDERED: PT OWN MED DRAWER 7, Y5N ONE (08:55)
[2017-03-17 09:07] VITALS: TEMP 98.2
[2017-03-17] MEDS ORDERED: NYSTATIN POWDER 100,000 UNITS/GM - 15 GM TOPICAL POWDER TP SCH (10:00)
[2017-03-17] MEDS ORDERED: REGADENOSON 0.4 MG/5 ML PRE-FILLED SYRINGE IVPUSH ONE ×2 (10:30→10:42)
[2017-03-17] MEDS: ACETAMINOPHEN 325 MG TABLET (FP) PO PRN (13:38)
[2017-03-17] MEDS: RANITIDINE HCL 150 MG TABLET (FP) PO SCH (13:40)
[2017-03-17] MEDS: FUROSEMIDE 20 MG TABLET (FP) PO SCH (13:40)
[2017-03-17] MEDS: SERTRALINE HCL 25 MG TABLET (FP) PO SCH (13:40)
[2017-03-17] MEDS: APIXABAN 5 MG TABLET PO SCH (13:40)
[2017-03-17] MEDS: METOPROLOL SUCCINATE 50 MG TAB.SR.24H (FP) PO SCH (13:41)
--- NOTE | 2017-03-17 14:58 | DS ---
Physical Examination Vital Signs: Vital Signs Temperature 98.2 F 03/17/17 08:10 Pulse Rate 57 L 03/17/17 11:06 Respiratory Rate 18 03/17/17 11:06 Blood Pressure 173/87 03/17/17 11:06 O2 Sat by Pulse Oximetry (%) 97 03/17/17 10:00 Constitutional: Yes: No Distress HENT: Yes: Atraumatic Neck: Yes: Supple Cardiovascular: Yes: Regular Rate and Rhythm Respiratory: Yes: CTA Bilaterally Gastrointestinal: Yes: Normal Bowel Sounds Extremities: Yes: WNL Neurological: Yes: Alert, Oriented Labs: CBC, BMP 03/15/17 15:00 03/15/17 15:00 Discharge Summary Reason For Visit: CHEST PAIN Current Active Problems Chest pain (Acute) Condition: Stable - Instructions Referrals: Yamilet Engle MD [Staff Physician] - Mike Browning MD [Staff Physician] - Disposition: [facility] - Home Medications Comprehensive Discharge Medication List: Ambulatory Orders Atorvastatin Ca [Lipitor] 40 mg PO HS tablet 11/12/15 Metformin HCl [Glucophage -] 500 mg PO BIDI tablet 11/12/15 Metoprolol Succinate [Toprol XL -] 50 mg PO DAILY tab.sr.24h 11/12/15 Ranitidine [Zantac -] 150 mg PO BID tablet 11/12/15 Sertraline HCl [Zoloft -] 25 mg PO DAILY tablet 11/12/15 Apixaban [Eliquis] 5 mg PO BID 12/22/15 Diltiazem Cd [Cardizem Cd -] 360 mg PO DAILY #60 cap.cd.24h 03/25/16 Furosemide [Lasix -] 40 mg PO DAILY 10/06/16 Dextromethorphan HBr [Robitussin] 15 mg PO BID #30 capsule 02/05/17 dc if cleared bycardiology report reviewed
--- NOTE | 2017-03-17 15:41 | PN ---
Progress Note, Physician Chief Complaint: Pt A&Ox3; anxious; no chest pain, dyspnea, or palpitations. History of Present Illness: History of present illness: 71 years old past medical history significant for CAD status post stent, hypertension, hyperlipidemia, PSVT 2012, renal insufficiency, diabetes, anxiety, sleep apnea presents to the emergency department with 1 day history of chest pain after eating lunch. Pain is graded as pressure-like central to left sided radiates to the left arm moderate in severity pressure-like in nature no exacerbating or alleviating factors. This is very similar to patient's previous episodes of chest pain. Mild nausea mild lightheadedness no diaphoresis no ripping tearing sensation. No history of PE DVT. No other PE DVT risk factors. - Current Medication List Current Medications: Active Medications Acetaminophen (Tylenol -) 650 mg PO Q4H PRN PRN Reason: FEVER OR PAIN Last Admin: 03/17/17 13:38 Dose: 650 mg Apixaban (Eliquis -) 5 mg PO BID [facility] Last Admin: 03/17/17 13:40 Dose: 5 mg Atorvastatin Calcium (Lipitor -) 40 mg PO HS [facility] Last Admin: 03/16/17 22:09 Dose: 40 mg Diltiazem HCl (Cardizem Cd -) 360 mg PO DAILY [facility] Last Admin: 03/17/17 13:39 Dose: 360 mg Furosemide (Lasix -) 40 mg PO DAILY [facility] Last Admin: 03/17/17 13:40 Dose: 40 mg Metformin HCl (Glucophage -) 500 mg PO BIDI [facility] Last Admin: 03/17/17 06:09 Dose: Not Given Metoprolol Succinate (Toprol Xl -) 50 mg PO DAILY [facility] Last Admin: 03/17/17 13:41 Dose: 50 mg Nitroglycerin (Nitrostat -) 0.3 mg SL Q5M PRN PRN Reason: FOR CHEST PAIN Last Admin: 03/15/17 17:30 Dose: 0.3 mg Nystatin (Nystop Powder -) 1 applic TP DAILY [facility] Last Admin: 03/17/17 08:30 Dose: 1 applic Ranitidine HCl (Zantac -) 150 mg PO BID [facility] Last Admin: 03/17/17 13:40 Dose: 150 mg Sertraline HCl (Zoloft -) 25 mg PO DAILY [facility] Last Admin: 03/17/17 13:40 Dose: 25 mg - Objective Vital Signs: Vital Signs Temperature 98.2 F 03/17/17 08:10 Pulse Rate 57 L 03/17/17 11:06 Respiratory Rate 18 03/17/17 11:06 Blood Pressure 173/87 03/17/17 11:06 O2 Sat by Pulse Oximetry (%) 97 03/17/17 10:00 Labs: CBC, BMP 03/15/17 15:00 03/15/17 15:00
[2017-03-17 15:51] VITALS: BP 142/92; PULSE 62
== END 2017-03-17 16:48 | disposition home or self-care (01) ==
LOC: JER 14:25 → JERBED 16:55 → J4W 20:47
PROVIDERS: ADMIT Internal Medicine; ATTEND Internal Medicine
PROC: 3E033GC Introduction of Other Therapeutic Substance into Peripheral Vein, Percutaneous Approach (ICD-10-PCS; principal; 2017-03-15)
DX: R07.9 Chest pain, unspecified (principal); I10 Essential (primary) hypertension; I25.10 Atherosclerotic heart disease of native coronary artery without angina pectoris; I50.30 Unspecified diastolic (congestive) heart failure; I47.1 Supraventricular tachycardia; E78.5 Hyperlipidemia, unspecified; E11.9 Type 2 diabetes mellitus without complications; N28.9 Disorder of kidney and ureter, unspecified; G47.30 Sleep apnea, unspecified; F41.8 Other specified anxiety disorders; E66.01 Morbid (severe) obesity due to excess calories; N30.01 Acute cystitis with hematuria; J44.9 Chronic obstructive pulmonary disease, unspecified; K21.9 Gastro-esophageal reflux disease without esophagitis; Z79.01 Long term (current) use of anticoagulants; Z86.79 Personal history of other diseases of the circulatory system; Z95.5 Presence of coronary angioplasty implant and graft; Z79.82 Long term (current) use of aspirin; Z88.8 Allergy status to other drugs, medicaments and biological substances; Z88.2 Allergy status to sulfonamides; Z59.0 Homelessness
CPT/HCPCS: 36415; 71045-TC; 78452-TC; 80053; 82550; 82962; 84484; 85025; 93005; 93010; 93017; 96374; 99283-25; A9502; G0378

== ENCOUNTER 2017-04-07 13:48 | Observation (INO) | payer OTHER ==
--- NOTE | 2017-04-07 14:28 | PDOC ---
History of Present Illness - General Chief Complaint: Chest Pain Stated Complaint: CHEST PAIN Time Seen by Provider: 04/07/17 14:16 - History of Present Illness Initial Comments: 04/07/17 14:27 71 yo F with h/o HTN, HLD, NIDDM,CAD s/p stent( 2008) paroxsymal A-fib, SVT, diastolic CHF, FRANSISCA, and COPD who arrives EMS with chest pain. Pt. reports acute onset of left sided sharp, pressure-like chest pain with radiation down left arm beginning 3 hours [employer] , lasting for 1 hour and now resolved. Chest pain at rest while sitting in [place] after reported episode of exercise" walking" with daughter earlier in the day. Also endorses increased SOB, and Cuellar within the last 3 hours.Yesterday report of increased LE edema with difficulty putting on shoes, now resolved with no asx. leg pain. Denies cough, wheezing, hemoptysis. Daily lasix 40 mg QD, compliant with medication. Denies N/V, F/C, abdominal pain , urinary complaints, lightheadedness, LOC, weakness. Denies home O2 requirements or duonoeb/inhaler therapy. H/o sleep apnea, but reports CPAP being taken away d/t insurance non coverage. Denies tobacco use. States that she is unable to take ASA. Recent stress test ( 03/17/17) with small mild anterior apical wall ischemia with persevered EF of 58% on previous admission. Rehabilitator Dr. Jean. PMD Dr. Janice Engle. Denies h/o intubations or ICU stay. Past History - Past Medical History Allergies/Adverse Reactions: Allergies Allergy/AdvReac Type Severity Reaction Status Date / Time pregabalin [From Lyrica] Allergy Intermediate Verified 03/15/17 14:28 budesonide [From Symbicort] Allergy Verified 03/15/17 14:28 celecoxib [From Celebrex] Allergy Verified 03/15/17 14:28 formoterol fumarate Allergy Verified 03/15/17 14:28 [From Symbicort] sulfacetamide sodium Allergy Verified 03/15/17 14:28 [From Sulfamide] Home Medications: Ambulatory Orders Atorvastatin Ca [Lipitor] 40 mg PO HS tablet 11/12/15 Metformin HCl [Glucophage -] 500 mg PO BIDI tablet 11/12/15 Metoprolol Succinate [Toprol XL -] 50 mg PO DAILY tab.sr.24h 11/12/15 Ranitidine [Zantac -] 150 mg PO BID tablet 11/12/15 Sertraline HCl [Zoloft -] 25 mg PO DAILY tablet 11/12/15 Apixaban [Eliquis] 5 mg PO BID 12/22/15 Diltiazem Cd [Cardizem Cd -] 360 mg PO DAILY #60 cap.cd.24h 03/25/16 Furosemide [Lasix -] 40 mg PO DAILY 10/06/16 Dextromethorphan HBr [Robitussin] 15 mg PO BID #30 capsule 02/05/17 Anemia: No Asthma: No Cancer: No Cardiac Disorders: Yes (2009 STENT X1,, LINQ) 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) COPD: No CHF: No DVT: No Dementia: No Diabetes: Yes GI Disorders: Yes (UMBILICAL HERNIA) Disorders: No HTN: Yes Hypercholesterolemia: Yes Liver Disease: No Seizures: No Thyroid Disease: No - Surgical History Abdominal Surgery: No Appendectomy: No Cardiac Surgery: Yes (STENT X 1, LOOP RECORDER INSERTION) Cholecystectomy: No Lung Surgery: Yes (biopsy May 2013) Neurologic Surgery: Yes (brain aneurysm clipped) Orthopedic Surgery: No - Immunization History Td Vaccination: Yes Immunization Up to Date: Yes - Suicide/Smoking/Psychosocial Hx Smoking Status: Yes Smoking History: Never smoked Years of Tobacco Use: 0 Have you smoked in the past 12 months: No Number of Cigarettes Smoked Daily: 0 If you are a former smoker, when did you quit?: 40 yrs Cigars Per Day: 0 'Breaking Loose' booklet given: 08/17/13 Hx Alcohol Use: No Drug/Substance Use Hx: No Substance Use Type: None Hx Substance Use Treatment: No Review of Systems - Review of Systems Comments:: 04/07/17 14:26 GENERAL/CONSTITUTIONAL: No fever or chills. No weakness. HEAD, EYES, EARS, NOSE AND THROAT: No change in vision. No ear pain or discharge. No sore throat.- CARDIOVASCULAR: + chest pain and shortness of breath RESPIRATORY: No cough, wheezing, or hemoptysis. GASTROINTESTINAL: No nausea, vomiting, diarrhea or constipation. GENITOURINARY: No dysuria, frequency, or change in urination. MUSCULOSKELETAL: No joint or muscle swelling or pain. No neck or back pain. SKIN: No rash NEUROLOGIC: No headache, vertigo, loss of consciousness, or change in strength/ sensation. ENDOCRINE: No increased thirst. No abnormal weight change HEMATOLOGIC/LYMPHATIC: No anemia, easy bleeding, or history of blood clots. ALLERGIC/IMMUNOLOGIC: No hives or skin allergy. *Physical Exam - Vital Signs Last Vital Signs Temp Pulse Resp BP Pulse Ox 97.9 F 58 L 20 150/90 93 L 04/07/17 13:57 04/07/17 13:57 04/07/17 13:57 04/07/17 13:57 04/07/17 13:57 - Physical Exam Comments: 04/07/17 14:26 GENERAL: Awake, alert, and fully oriented, in no acute distress HEAD: No signs of trauma, normocephalic, atraumatic EYES: PERRLA, EOMI, sclera anicteric, conjunctiva clear ENT: Hearing grossly normal, nares patent, oropharynx clear without exudates. Moist mucosa NECK: Normal ROM, supple, no lymphadenopathy, JVD, or masses LUNGS: Labored breathing. speaks full sentences, clear to auscultation bilaterally HEART: Regular rate and rhythm, normal S1 and S2, no murmurs, rubs or gallops, peripheral pulses normal and equal bilaterally. ABDOMEN: Soft, nontender, normoactive bowel sounds. No guarding, no rebound. No masses EXTREMITIES : Normal inspection, Normal range of motion, no edema. No clubbing or cyanosis. SKIN: Warm, Dry, normal turgor, no rashes or lesions noted. ED Treatment Course - LABORATORY CBC & Chemistry Diagram: 04/07/17 15:00 04/07/17 15:00 Medical Decision Making - Medical Decision Making 04/07/17 14:59 71 yo F with h/o HTN, morbid obesity, anxiety related disorder, HLD, NIDDM,CAD s /p stent( 2008) paroxsymal A-fib, SVT, diastolic CHF, FRANSISCA, and COPD who arrives EMS hypoxic on RA 93%, with acute onset of left sided sharp, pressure-like chest pain with radiation down left arm beginning 3 hours [employer] , lasting for 1 hour and now resolved. Chest pain at rest with asx. increased SOB, and Cuellar within the last 3 hours. Denies cough, wheezing, hemoptysis, and swelling of extremities. Daily lasix 40 mg QD, compliant with medication. Denies N/V, F/C, abdominal pain, urinary complaints, lightheadedness, LOC, weakness. Denies home O2 requirements or duonoeb/inhaler therapy. Denies tobacco use. States that she is unable to take ASA. Recent stress test ( 03/17/17) with small mild anterior apical wall ischemia with persevered EF of 58% on previous admission. Rehabilitator Dr. Jean. PMD Dr. Janice Engle.Physical exam unremarkable with absent cardiopulm findings. Pt. bradycaridc P-50'smand hypoxic on RA (93%). ACS/ ND r/o based on patient presentation, history, and comorbidities. Will also consider acute on chronic CHF exacerbation vs COPD exacerbation. DDx: ACS/ND, PNA, aCHF, acute COPD exacerbation ED Course: CBC, CMP, Cardiac Profile, BNP UA EKG, CXR Duonebs 04/07/17 15:17 EKG: Sinus bradycardia with PVC's in leads II and III. Absent SUSAN, STD, or TWI. LAD/LVH present. Normal interval duration. 04/07/17 15:20 CBC: Unremarkable 04/07/17 16:20 CMP: Unremarkable Trop: Neg BNP: 416.85 04/07/17 16:50 CXR: Mild pulm vasc congestion. 04/07/17 17:16 Repeat O2 sat 97-98 with normal waveform Lasix 40 mg 04/07/17 17:[address] Reynoso answering service. 04/07/17 17:[address] Engle. Will admit to tele/obs with cont'd chest pain. 04/07/17 17:52 Dr. Reynoso agrees with plan. *DC/Admit/Observation/Transfer Diagnosis at time of Disposition: Chest pain - Discharge Dispostion Admit: Yes - Referrals Referrals: Yamilet Engle MD [Primary Care Provider] - - Patient Instructions - Post Discharge Activity
--- NOTE | 2017-04-07 14:50 | PDOC ---
Attending Attestation - Resident Resident Name: Roderick Feliciano - ED Attending Attestation I have performed the following: I have examined & evaluated the patient, The case was reviewed & discussed with the resident, I agree w/resident's findings & plan, Exceptions are as noted - HPI HPI: 04/07/17 15:11 71y F hx ofhtn, dm, hl, cad (1 stent in 2008), pafib (not on ac), chf, FRANSISCA, copd , presents with complaint of chest pain that started approx 3 hrs prior to presentation that is left sided pressure like radiating casper the L arm, lasting for approx 1 hr. Onset at rest. WAs ambulating earlier today without any symptoms. Pt notes increasing sob/smyth since her chest pain. she also endorses increased leg swelling for a few days. Constitutional - no reported Fever, Chills, HEENT: no reported vision changes, sore throat Respiratory: +cough, sob, no reported hemoptysis Cardiac: + chest pain, palpitations, leg swelling no reported light headedness , Abd/GI: no reported abd pain, nausea, vomiting, blood per rectum, melena, diarrhea : no reported dysuria, frequency, discharge Musculskelatal - no reported back pain, joint swelling skin - no reported bruising, erythema, rash neurological: no reported headache, numbness, focal weakness, tingling, ataxia, hematologic: no reported anemia, easy bruising, easy bleeding GENERAL: The patient is awake, alert, and fully oriented, Nontoxic - slightly dyspneic appearing HEAD: Normocephalic, atraumatic. EYES: extraocular movements intact, sclera anicteric, conjunctiva clear. ENT: Normal voice, Moist mucous membranes. NECK: Normal range of motion, supple LUNGS: Breath sounds equal, clear to auscultation bilaterally. No wheezes, no rhonchi, no rales. HEART: Regular rate and rhythm, normal S1 and S2 without murmur, rub or gallop. ABDOMEN: Soft, nontender, normoactive bowel sounds. No guarding, no rebound. . No CVA tenderness EXTREMITIES: Normal range of motion, trace edema. No clubbing or cyanosis. No cords, erythema, or tenderness. NEUROLOGICAL: No facial assymetry, Normal speech, PSYCH: Normal mood, normal affect. SKIN: Warm, Dry, normal turgor, ddx - chf, acs, copd, pna labs reviewed cxr reviewed bnp slightly eelvated vitals normal (origianlly her sat was 93%, but is currently 97% on RA) will give lasix - suspect chf exacerbation trop x 1 neg will observe for further management of her dyspnea/chf - Physicial Exam PE: 04/09/17 08:26 see above - Medical Decision Making 04/09/17 08:27 see above Heart Score/ECG Review - ECG Impressions Comment:: 04/07/17 20:19 rate of 57 regular rate sinus abrnormal r wave progression nonspecific t wave changes
--- NOTE | 2017-04-07 15:10 | EKG ---
Test Reason : Blood Pressure : / mmHG Vent. Rate : 057 BPM Atrial Rate : 057 BPM P-R Int : 166 ms QRS Dur : 076 ms QT Int : 456 ms P-R-T Axes : 040 -21 023 degrees QTc Int : 443 ms SINUS BRADYCARDIA ANTEROSEPTAL INFARCT (CITED ON OR BEFORE 23-MAR-2016) ABNORMAL ECG WHEN COMPARED WITH ECG OF 15-MAR-2017 14:32, SERIAL CHANGES OF ANTEROSEPTAL INFARCT PRESENT Confirmed by MD ALEJANDRA, RACHAEL ([id number]) on 04/07/2017 3:09:48 PM Referred By: Confirmed By:RACHAEL ROBERTS MD
[2017-04-07 15:11] LABS: BASO % 0.5 % (0-2.0); EOS % 1.4 % (0-4.5); HEMATOCRIT 45.3 % (32.4-45.2); HEMOGLOBIN 15.2 GM/dL (10.7-15.3); LYMPH % 20.1 % (8-40); MCH 30.5 pg (25.7-33.7); MCHC 33.6 g/dl (32.0-36.0); MEAN CELL VOLUME 90.8 fl (80-96); MEAN PLT VOLUME 8.6 fl (7.5-11.1); MONO % 8.5 % (3.8-10.2); NEUT % 69.5 % (42.8-82.8); PLATELET COUNT 231 K/MM3 (134-434); RBC 4.99 M/mm3 (3.60-5.2); RDW 14.1 % (11.6-15.6); WHITE BLOOD COUNT 7.1 K/mm3 (4.0-10.0)
[2017-04-07] MEDS: ALBUTEROL SO4 2.5/IPRATROPIUM 0.5 INH SOL 3 ML VIAL.NEB. NEB SCH ×4 (15:16→16:01)
[2017-04-07] MEDS ORDERED: ALBUTEROL SO4 2.5/IPRATROPIUM 0.5 INH SOL 3 ML VIAL.NEB. NEB ONE (15:18)
[2017-04-07 15:36] LABS: INR 1.22 (0.82-1.09); PROTHROMBIN TIME (PATIENT) 13.8 SEC (9.98-11.88)
[2017-04-07 15:46] LABS: N-TERMINAL BNP 416.85 pg/ml (5-125)
[2017-04-07 15:58] LABS: URINE APPEARANCE SLCLOUDY; URINE BILIRUBIN NEGATIVE (NEGATIVE); URINE BLOOD NEGATIVE (NEGATIVE); URINE COLOR YELLOW; URINE GLUCOSE (UA) NEGATIVE (NEGATIVE); URINE KETONE NEGATIVE (NEGATIVE); URINE LEUK ESTERASE NEGATIVE (NEGATIVE); URINE NITRITE NEGATIVE (NEGATIVE); URINE PROTEIN NEGATIVE (NEGATIVE); URINE UROBILINOGEN NEGATIVE mg/dL (0.2-1.0)
[2017-04-07 16:01] LABS: BLOOD UREA NITROGEN 18 mg/dL (7-18); CREATININE 0.9 mg/dL (0.55-1.02); GLUCOSE,RANDOM 137 mg/dL (74-106); POTASSIUM 4.1 mmol/L (3.5-5.1); SODIUM 141 mmol/L (136-145)
[2017-04-07 16:02] LABS: ALBUMIN 3.5 g/dl (3.4-5.0); ALK PHOS 75 U/L (45-117); ANION GAP 11 (8-16); BILIRUBIN,TOTAL 0.6 mg/dL (0.2-1.0); CALCIUM 9.1 mg/dL (8.5-10.1); CHLORIDE 104 mmol/L (98-107); CO2 26 mmol/L (21-32); SGOT/AST 15 U/L (15-37); SGPT/ALT 23 U/L (12-78); TOT PROT 7.4 g/dl (6.4-8.2)
[2017-04-07] MEDS ORDERED: FUROSEMIDE 40 MG/4 ML INJECTABLE VIAL IVPUSH ONE (17:29)
[2017-04-07] MEDS ORDERED: FUROSEMIDE 40 MG/4 ML INJECTABLE VIAL ONE (17:45)
--- NOTE | 2017-04-07 20:37 | HP ---
Admitting History and Physical - Primary Care Physician PCP: Yamilet Engle - Admission History of Present Illness: 71 yo F with h/o HTN, HLD, NIDDM,CAD s/p stent( 2008) paroxsymal A-fib, SVT, diastolic CHF, FRANSISCA, and COPD who arrives EMS with chest pain. Pt. reports acute onset of left sided sharp, pressure-like chest pain with radiation down left arm beginning 3 hours SCRATCHER TENDER , lasting for 1 hour and now resolved. Chest pain at rest while sitting in chair after reported episode of exercise" walking" with daughter earlier in the day. Also endorses increased SOB, and [place] within the last 3 hours.Yesterday report of increased LE edema with difficulty putting on shoes, now resolved . Daily lasix 40 mg QD, compliant with medication. Denies N/ V, F/C, abdominal pain, urinary complaints, lightheadedness, LOC, weakness. Denies home O2 requirements or duonoeb/inhaler therapy. H/o sleep apnea, but reports CPAP being taken away d/t insurance non coverage. Denies tobacco use. States that she is unable to take ASA. Recent stress test ( 03/17/17) with small mild anterior apical wall ischemia with persevered EF of 58% on previous admission. Design Teacher Dr. Jean - Past Medical History Cardiovascular: Yes: CAD, HTN, Hyperlipdemia, Other (PSVT in 2011) Pulmonary: Yes: Sleep Apnea (risks for FRANSISCA) Renal/: Yes: Renal Inusuff Psych: Yes: Anxiety Endocrine: Yes: Diabetes Mellitus - Past Surgical History Past Surgical History: Yes: Stent - Smoking History Smoking history: Never smoked Have you smoked in the past 12 months: No Aproximately how many cigarettes per day: 0 If you are a former smoker, when did you quit?: 40 yrs - Alcohol/Substance Use Hx Alcohol Use: No - Social History History of Recent Travel: No Home Medications - Allergies Allergies/Adverse Reactions: Allergies Allergy/AdvReac Type Severity Reaction Status Date / Time pregabalin [From Lyrica] Allergy Intermediate Verified 03/15/17 14:28 budesonide [From Symbicort] Allergy Verified 03/15/17 14:28 celecoxib [From Celebrex] Allergy Verified 03/15/17 14:28 formoterol fumarate Allergy Verified 03/15/17 14:28 [From Symbicort] sulfacetamide sodium Allergy Verified 03/15/17 14:28 [From Sulfamide] - Home Medications Home Medications: Ambulatory Orders Atorvastatin Ca [Lipitor] 40 mg PO HS tablet 11/12/15 Metformin HCl [Glucophage -] 500 mg PO BIDI tablet 11/12/15 Metoprolol Succinate [Toprol XL -] 50 mg PO DAILY tab.sr.24h 11/12/15 Ranitidine [Zantac -] 150 mg PO BID tablet 11/12/15 Sertraline HCl [Zoloft -] 25 mg PO DAILY tablet 11/12/15 Apixaban [Eliquis] 5 mg PO BID 12/22/15 Diltiazem Cd [Cardizem Cd -] 360 mg PO DAILY #60 cap.cd.24h 03/25/16 Furosemide [Lasix -] 40 mg PO DAILY 10/06/16 Dextromethorphan HBr [Robitussin] 15 mg PO BID #30 capsule 02/05/17 Physical Examination Vital Signs: Vital Signs Temperature 97.9 F 04/07/17 13:57 Pulse Rate 60 04/07/17 20:19 Respiratory Rate 20 04/07/17 20:19 Blood Pressure 149/60 04/07/17 20:19 O2 Sat by Pulse Oximetry (%) 96 04/07/17 20:19 Constitutional: Yes: No Distress HENT: Yes: Atraumatic Neck: Yes: Supple Cardiovascular: Yes: Regular Rate and Rhythm Respiratory: Yes: CTA Bilaterally Gastrointestinal: Yes: Normal Bowel Sounds Extremities: Yes: WNL Edema: Yes Edema: LLE: Trace, RLE: Trace Peripheral Pulses WNL: Yes Neurological: Yes: Alert, Oriented Labs: CBC, BMP 04/07/17 15:00 04/07/17 15:50 Problem List - Problems (1) Chest pain Assessment/Plan: tele monitoring fu cardiac enzymes cardiology consult Code(s): R07.9 - CHEST PAIN, UNSPECIFIED (2) Anxiety and depression Assessment/Plan: stable now Code(s): F41.8 - OTHER SPECIFIED ANXIETY DISORDERS (3) COPD (chronic obstructive pulmonary disease) Assessment/Plan: stable Code(s): J44.9 - CHRONIC OBSTRUCTIVE PULMONARY DISEASE, UNSPECIFIED (4) Diabetes Assessment/Plan: on meds bgms Code(s): E11.9 - TYPE 2 DIABETES MELLITUS WITHOUT COMPLICATIONS Qualifiers: (5) HTN (hypertension), benign Assessment/Plan: on meds stable Code(s): I10 - ESSENTIAL (PRIMARY) HYPERTENSION (6) Hyperlipidemia Assessment/Plan: on meds stable Code(s): E78.5 - HYPERLIPIDEMIA, UNSPECIFIED Assessment/Plan Laboratory Tests 04/07/17 04/07/17 04/07/17 15:00 15:00 15:00 WBC 7.1 RBC 4.99 Hgb 15.2 Hct 45.3 H MCV 90.8 MCH 30.5 MCHC 33.6 RDW 14.1 Plt Count 231 MPV 8.6 Neutrophils % 69.5 Lymphocytes % 20.1 Monocytes % 8.5 Eosinophils % 1.4 Basophils % 0.5 PT with INR 13.80 H INR 1.22 H Sodium 141 Potassium 4.1 Chloride 104 Carbon Dioxide 26 Anion Gap 11 BUN 18 Creatinine 0.9 Creat Clearance w eGFR > 60 Random Glucose 137 H Calcium 9.1 Total Bilirubin 0.6 AST 15 ALT 23 Alkaline Phosphatase 75 Creatine Kinase 68 Troponin I < 0.02 B-Natriuretic Peptide 416.85 H Total Protein 7.4 Albumin 3.5 Urine Color Urine Appearance Urine pH Ur Specific [place] Urine Protein Urine Glucose (UA) Urine Ketones Urine Blood Urine Nitrite Urine Bilirubin Urine Urobilinogen Ur Leukocyte Esterase 04/07/17 04/07/17 04/07/17 15:00 15:50 15:50 WBC RBC Hgb Hct MCV MCH MCHC RDW Plt Count MPV Neutrophils % Lymphocytes % Monocytes % Eosinophils % Basophils % PT with INR INR Sodium Cancelled Cancelled Potassium Cancelled Cancelled Chloride Cancelled Cancelled Carbon Dioxide Cancelled Cancelled Anion Gap Cancelled Cancelled BUN Cancelled Cancelled Creatinine Cancelled Cancelled Creat Clearance w eGFR Cancelled Cancelled Random Glucose Cancelled Cancelled Calcium Cancelled Cancelled Total Bilirubin Cancelled Cancelled AST Cancelled Cancelled ALT Cancelled Cancelled Alkaline Phosphatase Cancelled Cancelled Creatine Kinase Troponin I B-Natriuretic Peptide Total Protein Cancelled Cancelled Albumin Cancelled Cancelled Urine Color Yellow Urine Appearance Slcloudy Urine pH 5.0 Ur Specific [place] 1.020 Urine Protein Negative Urine Glucose (UA) Negative Urine Ketones Negative Urine Blood Negative Urine Nitrite Negative Urine Bilirubin Negative Urine Urobilinogen Negative Ur Leukocyte Esterase Negative 04/07/17 15:50 WBC RBC Hgb Hct MCV MCH MCHC RDW Plt Count MPV Neutrophils % Lymphocytes % Monocytes % Eosinophils % Basophils % PT with INR INR Sodium Potassium Chloride Carbon Dioxide Anion Gap BUN Creatinine Creat Clearance w eGFR Random Glucose Calcium Total Bilirubin AST ALT Alkaline Phosphatase Creatine Kinase Cancelled Troponin I Cancelled B-Natriuretic Peptide Total Protein Albumin Urine Color Urine Appearance Urine pH Ur Specific [place] Urine Protein Urine Glucose (UA) Urine Ketones Urine Blood Urine Nitrite Urine Bilirubin Urine Urobilinogen Ur Leukocyte Esterase Active Medications Generic Name Dose Route Start Last Admin Trade Name Radha PRN Reason Stop Dose Admin Aspirin 81 mg 04/08/17 10:15 04/09/17 10:01 Asa - PO 81 mg DAILY BRUCE Administration Atorvastatin Calcium 40 mg 04/07/17 22:00 04/08/17 21:18 Lipitor - PO 40 mg HS BRUCE Administration Clopidogrel Bisulfate 75 mg 04/08/17 10:15 04/09/17 10:02 Plavix - PO 75 mg DAILY BRUCE Administration Diltiazem HCl 360 mg 04/08/17 10:00 04/09/17 10:01 Cardizem Cd - PO 360 mg DAILY BRUCE Administration Enoxaparin Sodium 120 mg 04/08/17 22:00 04/09/17 10:02 Lovenox - SQ 120 mg BID BRUCE Administration Furosemide 40 mg 04/08/17 10:00 04/09/17 10:01 Lasix - PO 40 mg DAILY BRUCE Administration Lisinopril 2.5 mg 04/09/17 10:00 04/09/17 10:01 Prinivil PO 2.5 mg DAILY BRUCE Administration Metformin HCl 500 mg 04/08/17 07:00 04/09/17 16:35 Glucophage - PO 500 mg BIDI BRUCE Administration Metoprolol Succinate 50 mg 04/08/17 10:00 04/09/17 10:01 Toprol Xl - PO 50 mg DAILY BRUCE Administration
[2017-04-07] MEDS: APIXABAN 5 MG TABLET PO SCH (22:25)
[2017-04-07] MEDS: ATORVASTATIN CA 40 MG TABLET (FP) PO SCH (22:25)
--- NOTE | 2017-04-08 00:21 | CON.CARD ---
Consult Consult Specialty:: cardiology Reason for Consultation:: shortness of breath; hx CHF - History of Present Illness History of Present Illness: 71y white woman with PM hx of htn, dm, hl, cad (1 stent in 2008), PAF, diastolic chf, FRANSISCA, copd, anxiety/depression, with multiple recent admissions for chest pain and shortness of breath, now presents with complaint of chest pain that started approximately 3 hrs prior to presentation that is left- sided pressure -like radiating down the L arm, lasting for approx 1 hr. Onset at rest. Was ambulating earlier today without any symptoms. Pt notes increasing sob/smyth since her chest pain. she also endorses increased leg swelling for a few days. Pt has stress Lexiscan MIBI 03/15/2017: small area of mildly intense myocardial ischemia of the anteroapical wall; preserved LVEF. - History Source History Provided By: Medical Record - Past Medical History Cardio/Vascular: Yes: CAD, HTN, Hyperlipdemia, Other (PSVT in 2011) Pulmonary: Yes: Sleep Apnea (risks for FRANSISCA) Renal/: Yes: Renal Inusuff Reproductive: Yes: Postmenopausal ...: No Psych: Yes: Anxiety Endocrine: Yes: Diabetes Mellitus Additional Medical History: Condition Date Treating Physician Comments. ASHD promus stent pLAD 2008. CHF diastolic. DM. GERD. HHD. HTN. Hyperlipidemia. Morbid obesity. Negative MIBI ST September 2011 And May 2013. SVT - Past Surgical History Past Surgical History: Yes: Stent - Alcohol/Substance Use Hx Alcohol Use: No - Smoking History Smoking history: Never smoked Have you smoked in the past 12 months: No Aproximately how many cigarettes per day: 0 If you are a former smoker, when did you quit?: 40 yrs - Social History Usual Living Arrangement: Other (with nephew; her daughter is close to her) History of Recent Travel: No Home Medications - Allergies Allergies/Adverse Reactions: Allergies Allergy/AdvReac Type Severity Reaction Status Date / Time pregabalin [From Lyrica] Allergy Intermediate Verified 03/15/17 14:28 budesonide [From Symbicort] Allergy Verified 03/15/17 14:28 celecoxib [From Celebrex] Allergy Verified 03/15/17 14:28 formoterol fumarate Allergy Verified 03/15/17 14:28 [From Symbicort] sulfacetamide sodium Allergy Verified 03/15/17 14:28 [From Sulfamide] - Home Medications Home Medications: Ambulatory Orders Atorvastatin Ca [Lipitor] 40 mg PO HS tablet 11/12/15 Metformin HCl [Glucophage -] 500 mg PO BIDI tablet 11/12/15 Metoprolol Succinate [Toprol XL -] 50 mg PO DAILY tab.sr.24h 11/12/15 Ranitidine [Zantac -] 150 mg PO BID tablet 11/12/15 Sertraline HCl [Zoloft -] 25 mg PO DAILY tablet 11/12/15 Apixaban [Eliquis] 5 mg PO BID 12/22/15 Diltiazem Cd [Cardizem Cd -] 360 mg PO DAILY #60 cap.cd.24h 03/25/16 Furosemide [Lasix -] 40 mg PO DAILY 10/06/16 Dextromethorphan HBr [Robitussin] 15 mg PO BID #30 capsule 02/05/17 Vital Signs: Vital Signs Temperature 97.9 F 04/07/17 13:57 Pulse Rate 60 04/07/17 20:19 Respiratory Rate 20 04/07/17 20:19 Blood Pressure 149/60 04/07/17 20:19 O2 Sat by Pulse Oximetry (%) 96 04/07/17 20:19 - Other Data Labs, Other Data: CBC, BMP 04/07/17 15:00 04/07/17 15:50 INR, PTT INR 1.22 (0.82-1.09) H 04/07/17 15:00 Troponin, BNP 04/07/17 04/07/17 04/07/17 15:00 15:50 21:06 Troponin I < 0.02 Cancelled < 0.02 B-Natriuretic Peptide 416.85 H Troponin, BNP 04/07/17 04/07/17 04/07/17 15:00 15:50 21:06 Troponin I < 0.02 Cancelled < 0.02 B-Natriuretic Peptide 416.85 H Problem List - Problems (1) Anxiety and depression Assessment/Plan: Pt has been "homeless" for months, adding to emotional stress.She has also been noncompliant to medications. Code(s): F41.8 - OTHER SPECIFIED ANXIETY DISORDERS (2) Morbid obesity Assessment/Plan: dietary consult would be of benefit. Code(s): E66.01 - MORBID (SEVERE) OBESITY DUE TO EXCESS CALORIES (3) Diabetes Assessment/Plan: On glucophage. Start lisinopril 2.5 mg daily (HTN; DM; normal renal function; normal K+). Code(s): E11.9 - TYPE 2 DIABETES MELLITUS WITHOUT COMPLICATIONS Qualifiers: (4) HTN (hypertension), benign Assessment/Plan: On diltiazem, metoprolol, furosemide. F/u ECHO for LVEF, wall thickness and motion, valve status; hx pulmonary HTN. Code(s): I10 - ESSENTIAL (PRIMARY) HYPERTENSION (5) Hyperlipidemia Assessment/Plan: lipid panel; keep LDL < 70 mg/dL. Code(s): E78.5 - HYPERLIPIDEMIA, UNSPECIFIED (6) Sleep apnea Assessment/Plan: therapy per wardsperson Code(s): G47.30 - SLEEP APNEA, UNSPECIFIED (7) Atypical chest pain Assessment/Plan: TNI 0.02; f/u serially. Stress Lexiscan MIBI 03/15/2017: small area of mildy intense myocardial ischemia of the anteroapical wall. F/u ECHO for LVEF, wall motion, valve status. F/u lipids (and keep on statin, even if "normal" levels), TSH. Multiple recent admissions for chest discomfort, dyspnea. Consider coronary angiogram. Code(s): R07.89 - OTHER CHEST PAIN (8) COPD exacerbation Assessment/Plan: f/u with wardsperson. Code(s): J44.1 - CHRONIC OBSTRUCTIVE PULMONARY DISEASE W (ACUTE) EXACERBATION (9) Pulmonary hypertension Assessment/Plan: signficantly increased; f/u ECHO. Code(s): I27.20 - PULMONARY HYPERTENSION, UNSPECIFIED
[2017-04-08 00:46] VITALS: BMI 48.9
[2017-04-08] MEDS: metFORMIN HCL 500 MG TABLET (FP) PO SCH ×2 (06:37→18:00)
[2017-04-08 07:44] LABS: CHOLESTEROL 199 mg/dL (50-200); TRIGLYCERIDES 175 mg/dL (35-160)
[2017-04-08] MEDS: FUROSEMIDE 20 MG TABLET (FP) PO SCH (09:01)
[2017-04-08] MEDS: METOPROLOL SUCCINATE 50 MG TAB.SR.24H (FP) PO SCH (09:01)
[2017-04-08] MEDS: APIXABAN 5 MG TABLET PO SCH (09:01)
[2017-04-08 09:07] LABS: HDL CHOLESTEROL 46 mg/dL (40-60); LDL CHOLESTEROL (ONLY SJRH) 133 mg/dL (5-100)
--- NOTE | 2017-04-08 10:06 | PN ---
Progress Note, Physician History of Present Illness: 71y white woman with PM hx of htn, dm, hl, cad (1 stent in 2008), PAF, diastolic chf, FRANSISCA, copd, anxiety/depression, with multiple recent admissions for chest pain and shortness of breath, now presents with complaint of chest pain that started approximately 3 hrs prior to presentation that is left- sided pressure -like radiating down the L arm, lasting for approx 1 hr. Onset at rest. Was ambulating earlier today without any symptoms. Pt notes increasing sob/smyth since her chest pain. she also endorses increased leg swelling for a few days. Pt has stress Lexiscan MIBI 03/15/2017: small area of mildly intense myocardial ischemia of the anteroapical wall; preserved LVEF. - Current Medication List Current Medications: Active Medications Aspirin (Asa -) 81 mg PO DAILY [facility] Atorvastatin Calcium (Lipitor -) 40 mg PO HS [facility] Last Admin: 04/07/17 22:25 Dose: 40 mg Clopidogrel Bisulfate (Plavix -) 75 mg PO DAILY [facility] Diltiazem HCl (Cardizem Cd -) 360 mg PO DAILY [facility] Last Admin: 04/08/17 09:01 Dose: 360 mg Furosemide (Lasix -) 40 mg PO DAILY [facility] Last Admin: 04/08/17 09:01 Dose: 40 mg Metformin HCl (Glucophage -) 500 mg PO BIDI [facility] Last Admin: 04/08/17 06:37 Dose: 500 mg Metoprolol Succinate (Toprol Xl -) 50 mg PO DAILY [facility] Last Admin: 04/08/17 09:01 Dose: 50 mg - Objective Vital Signs: Vital Signs Temperature 97.4 F L 04/08/17 02:00 Pulse Rate 52 L 04/08/17 06:00 Respiratory Rate 18 04/08/17 06:00 Blood Pressure 133/69 04/08/17 06:00 O2 Sat by Pulse Oximetry (%) 97 04/08/17 04:40 Eyes: Yes: WNL, Conjunctiva Clear, EOM Intact HENT: Yes: WNL, Atraumatic, Normocephalic Neck: Yes: WNL, Supple, Trachea Midline Cardiovascular: Yes: WNL, Regular Rate and Rhythm Respiratory: Yes: WNL, Regular, CTA Bilaterally Gastrointestinal: Yes: WNL, Normal Bowel Sounds Genitourinary: Yes: WNL Musculoskeletal: Yes: WNL Extremities: Yes: WNL Edema: No Integumentary: Yes: WNL Neurological: Yes: WNL, Alert, Oriented ...Motor Strength: WNL Psychiatric: Yes: WNL Labs: CBC, BMP 04/07/17 15:00 04/07/17 15:50 INR, PTT INR 1.22 (0.82-1.09) H 04/07/17 15:00 Assessment/Plan - Problems (1) Anxiety and depression Assessment/Plan: Pt has been "homeless" for months, adding to emotional stress.She has also been noncompliant to medications. Code(s): F41.8 - OTHER SPECIFIED ANXIETY DISORDERS (2) Morbid obesity Assessment/Plan: dietary consult would be of benefit. Code(s): E66.01 - MORBID (SEVERE) OBESITY DUE TO EXCESS CALORIES (3) Diabetes Assessment/Plan: On glucophage. Start lisinopril 2.5 mg daily (HTN; DM; normal renal function; normal K+). Code(s): E11.9 - TYPE 2 DIABETES MELLITUS WITHOUT COMPLICATIONS Qualifiers: (4) HTN (hypertension), benign Assessment/Plan: On diltiazem, metoprolol, furosemide. F/u ECHO for LVEF, wall thickness and motion, valve status; hx pulmonary HTN. Code(s): I10 - ESSENTIAL (PRIMARY) HYPERTENSION (5) Hyperlipidemia Assessment/Plan: lipid panel; keep LDL < 70 mg/dL. Code(s): E78.5 - HYPERLIPIDEMIA, UNSPECIFIED (6) Sleep apnea Assessment/Plan: therapy per wood and wood products factory worker Code(s): G47.30 - SLEEP APNEA, UNSPECIFIED (7) Atypical chest pain Assessment/Plan: TNI 0.02; f/u serially. Stress Lexiscan MIBI 03/15/2017: small area of mildy intense myocardial ischemia of the anteroapical wall. F/u ECHO for LVEF, wall motion, valve status. F/u lipids (and keep on statin, even if "normal" levels), TSH. Multiple recent admissions for chest discomfort, dyspnea. coronary angiogram 04-10-17 Code(s): R07.89 - OTHER CHEST PAIN (8) COPD exacerbation Assessment/Plan: f/u with wood and wood products factory worker. Code(s): J44.1 - CHRONIC OBSTRUCTIVE PULMONARY DISEASE W (ACUTE) EXACERBATION (9) Pulmonary hypertension Assessment/Plan: signficantly increased; f/u ECHO. Code(s): I27.20 - PULMONARY HYPERTENSION, UNSPECIFIED
[2017-04-08] MEDS ORDERED: ENOXAPARIN NA (PORCINE) 120 MG/0.8 ML DISP.SYRIN SQ SCH (11:15)
[2017-04-08] MEDS: ASPIRIN 81 MG CHEWABLE TABLETS PO SCH (13:07)
[2017-04-08] MEDS: CLOPIDOGREL BISULFATE 75 MG TABLET (FP) PO SCH (13:34)
--- NOTE | 2017-04-08 17:29 | PN ---
Progress Note, Physician History of Present Illness: no chest pain - Current Medication List Current Medications: Active Medications Aspirin (Asa -) 81 mg PO DAILY [facility] Last Admin: 04/08/17 13:07 Dose: Not Given Atorvastatin Calcium (Lipitor -) 40 mg PO HS [facility] Last Admin: 04/07/17 22:25 Dose: 40 mg Clopidogrel Bisulfate (Plavix -) 75 mg PO DAILY [facility] Last Admin: 04/08/17 13:34 Dose: 75 mg Diltiazem HCl (Cardizem Cd -) 360 mg PO DAILY [facility] Last Admin: 04/08/17 09:01 Dose: 360 mg Enoxaparin Sodium (Lovenox -) 120 mg SQ BID [facility] Furosemide (Lasix -) 40 mg PO DAILY [facility] Last Admin: 04/08/17 09:01 Dose: 40 mg Metformin HCl (Glucophage -) 500 mg PO BIDI [facility] Last Admin: 04/08/17 06:37 Dose: 500 mg Metoprolol Succinate (Toprol Xl -) 50 mg PO DAILY [facility] Last Admin: 04/08/17 09:01 Dose: 50 mg - Objective Vital Signs: Vital Signs Temperature 98.6 F 04/08/17 14:00 Pulse Rate 66 04/08/17 14:00 Respiratory Rate 18 04/08/17 14:00 Blood Pressure 120/65 04/08/17 14:00 O2 Sat by Pulse Oximetry (%) 97 04/08/17 10:29 Constitutional: Yes: No Distress HENT: Yes: Atraumatic Neck: Yes: Supple Cardiovascular: Yes: Regular Rate and Rhythm Respiratory: Yes: CTA Bilaterally Gastrointestinal: Yes: Normal Bowel Sounds Extremities: Yes: WNL Edema: No Neurological: Yes: Alert, Oriented Labs: CBC, BMP 04/07/17 15:00 04/07/17 15:50 INR, PTT INR 1.22 (0.82-1.09) H 04/07/17 15:00 Problem List - Problems (1) Chest pain Assessment/Plan: tele monitoring fu cardiac enzymes...negative for cardiac cath Code(s): R07.9 - CHEST PAIN, UNSPECIFIED (2) Anxiety and depression Assessment/Plan: stable now Code(s): F41.8 - OTHER SPECIFIED ANXIETY DISORDERS (3) COPD (chronic obstructive pulmonary disease) Assessment/Plan: stable Code(s): J44.9 - CHRONIC OBSTRUCTIVE PULMONARY DISEASE, UNSPECIFIED (4) Diabetes Code(s): E11.9 - TYPE 2 DIABETES MELLITUS WITHOUT COMPLICATIONS Qualifiers: (5) HTN (hypertension), benign Code(s): I10 - ESSENTIAL (PRIMARY) HYPERTENSION (6) Hyperlipidemia Code(s): E78.5 - HYPERLIPIDEMIA, UNSPECIFIED
[2017-04-08] MEDS: ENOXAPARIN NA (PORCINE) 120 MG/0.8 ML DISP.SYRIN SQ SCH (21:18)
[2017-04-08] MEDS: ATORVASTATIN CA 40 MG TABLET (FP) PO SCH (21:18)
[2017-04-09] MEDS: metFORMIN HCL 500 MG TABLET (FP) PO SCH ×2 (06:54→16:35)
--- NOTE | 2017-04-09 08:53 | PN ---
Progress Note, Physician Chief Complaint: Pt A&Ox3; no chest pain or dyspnea; c/o chronic pain in knees that limits ambulation. History of Present Illness: 71y white woman with PM hx of htn, dm, hl, cad (1 stent in 2008), PAF, diastolic chf, FRANSISCA, copd, anxiety/depression, with multiple recent admissions for chest pain and shortness of breath, now presents with complaint of chest pain that started approximately 3 hrs prior to presentation that is left- sided pressure -like radiating down the L arm, lasting for approx 1 hr. Onset at rest. Was ambulating earlier today without any symptoms. Pt notes increasing sob/smyth since her chest pain. she also endorses increased leg swelling for a few days. Pt has stress Lexiscan MIBI 03/15/2017: small area of mildly intense myocardial ischemia of the anteroapical wall; preserved LVEF. - Current Medication List Current Medications: Active Medications Aspirin (Asa -) 81 mg PO DAILY [facility] Last Admin: 04/08/17 13:07 Dose: Not Given Atorvastatin Calcium (Lipitor -) 40 mg PO HS [facility] Last Admin: 04/08/17 21:18 Dose: 40 mg Clopidogrel Bisulfate (Plavix -) 75 mg PO DAILY [facility] Last Admin: 04/08/17 13:34 Dose: 75 mg Diltiazem HCl (Cardizem Cd -) 360 mg PO DAILY [facility] Last Admin: 04/08/17 09:01 Dose: 360 mg Enoxaparin Sodium (Lovenox -) 120 mg SQ BID [facility] Last Admin: 04/08/17 21:18 Dose: 120 mg Furosemide (Lasix -) 40 mg PO DAILY [facility] Last Admin: 04/08/17 09:01 Dose: 40 mg Metformin HCl (Glucophage -) 500 mg PO BIDI [facility] Last Admin: 04/09/17 06:54 Dose: 500 mg Metoprolol Succinate (Toprol Xl -) 50 mg PO DAILY [facility] Last Admin: 04/08/17 09:01 Dose: 50 mg - Objective Vital Signs: Vital Signs Temperature 98.2 F 04/09/17 05:46 Pulse Rate 54 L 04/09/17 05:46 Respiratory Rate 20 04/09/17 05:46 Blood Pressure 129/55 04/09/17 05:46 O2 Sat by Pulse Oximetry (%) 94 L 04/08/17 20:00 Constitutional: Yes: Anxious Eyes: Yes: WNL HENT: Yes: WNL Neck: Yes: WNL Cardiovascular: Yes: Regular Rate and Rhythm Respiratory: Yes: Regular Gastrointestinal: Yes: Soft, Abdomen, Obese ...Rectal Exam: Yes: Deferred Genitourinary: No: Anuria Breast(s): Yes: WNL Musculoskeletal: Yes: Joint Stiffness, Muscle Weakness Extremities: Yes: WNL Edema: No Peripheral Pulses WNL: Yes Integumentary: Yes: WNL Neurological: Yes: WNL Psychiatric: Yes: Other Labs: CBC, BMP 04/07/17 15:00 04/07/17 15:50 INR, PTT INR 1.22 (0.82-1.09) H 04/07/17 15:00 Abnormal Lab Results 04/08/17 06:55 Total LDL Cholesterol 133 H - ....Imaging Other: Image Reviewed (telemetry: NSR) Problem List - Problems (1) Anxiety and depression Assessment/Plan: Pt has been "homeless" for months, adding to emotional stress.She has also been noncompliant to medications. Zoraida (by telephone today) says mother will come to live with her upon discharge. Code(s): F41.8 - OTHER SPECIFIED ANXIETY DISORDERS (2) Morbid obesity Assessment/Plan: dietary consult would be of benefit. Code(s): E66.01 - MORBID (SEVERE) OBESITY DUE TO EXCESS CALORIES (3) Diabetes Assessment/Plan: On glucophage. Start lisinopril 2.5 mg daily (HTN; DM; normal renal function; normal K+). Code(s): E11.9 - TYPE 2 DIABETES MELLITUS WITHOUT COMPLICATIONS Qualifiers: (4) HTN (hypertension), benign Assessment/Plan: On diltiazem, metoprolol, furosemide. ECHO: technically limited study: normal LVEF; diastolic dysfunction; unable to assess RVEF for pulmonary HTN. Started lisinopril 2.5 mg daily. Code(s): I10 - ESSENTIAL (PRIMARY) HYPERTENSION (5) Hyperlipidemia Assessment/Plan: LDL cholesterol 133 mg/dL. Now on statin; diet modification, weight loss, exercise will be very important. Code(s): E78.5 - HYPERLIPIDEMIA, UNSPECIFIED (6) Sleep apnea Assessment/Plan: therapy per window repairer (sees Dr. Monet). Code(s): G47.30 - SLEEP APNEA, UNSPECIFIED (7) Atypical chest pain Assessment/Plan: TNI 0.02x 2 over a 24 hour period. Stress Lexiscan MIBI 03/15/2017: small area of midly intense apical ischemia. ECHO: normal LVEF; abnrormal diastolic compliance. LDL cholesterol 133 mg/dL (--> atorvastatin). TSH WNL (03/2016). Multiple recent admissions for chest discomfort, dyspnea. For coronary angiogram. As discussed with her and her daughter, cardiac rehabilitation post-procedure alfonzo be important in lowering cardiac risks. Pt is enthusiastic about starting the program, but worries that her knee pains will keep her from walking regularly. Physiatric/physical Rx w/u would be helpful. Code(s): R07.89 - OTHER CHEST PAIN (8) COPD exacerbation Assessment/Plan: f/u with window repairer. Code(s): J44.1 - CHRONIC OBSTRUCTIVE PULMONARY DISEASE W (ACUTE) EXACERBATION (9) Pulmonary hypertension Assessment/Plan: f/u ECHO post-angiogram (ECHO yesterday showed normal LVEF, abnormal diastolic compliance; technical difficulties made assessment of pulmonary HTN problematic) .. Code(s): I27.20 - PULMONARY HYPERTENSION, UNSPECIFIED
[2017-04-09] MEDS ORDERED: LISINOPRIL 5 MG TABLET (FP) PO SCH (10:00)
[2017-04-09] MEDS: ASPIRIN 81 MG CHEWABLE TABLETS PO SCH (10:01)
[2017-04-09] MEDS: FUROSEMIDE 20 MG TABLET (FP) PO SCH (10:01)
[2017-04-09] MEDS: METOPROLOL SUCCINATE 50 MG TAB.SR.24H (FP) PO SCH (10:01)
[2017-04-09] MEDS: ENOXAPARIN NA (PORCINE) 120 MG/0.8 ML DISP.SYRIN SQ SCH (10:02)
[2017-04-09] MEDS: CLOPIDOGREL BISULFATE 75 MG TABLET (FP) PO SCH (10:02)
[2017-04-09 15:35] VITALS: BP 122/67; PULSE 64; TEMP 98.4
[2017-04-09] MEDS ORDERED: ACETAMINOPHEN 325 MG TABLET (FP) ONE (16:05)
--- NOTE | 2017-04-09 17:53 | PN ---
Progress Note, Physician History of Present Illness: no chest pain - Current Medication List Current Medications: Active Medications Aspirin (Asa -) 81 mg PO DAILY [facility] Last Admin: 04/09/17 10:01 Dose: 81 mg Atorvastatin Calcium (Lipitor -) 40 mg PO HS [facility] Last Admin: 04/08/17 21:18 Dose: 40 mg Clopidogrel Bisulfate (Plavix -) 75 mg PO DAILY [facility] Last Admin: 04/09/17 10:02 Dose: 75 mg Diltiazem HCl (Cardizem Cd -) 360 mg PO DAILY [facility] Last Admin: 04/09/17 10:01 Dose: 360 mg Enoxaparin Sodium (Lovenox -) 120 mg SQ BID [facility] Last Admin: 04/09/17 10:02 Dose: 120 mg Furosemide (Lasix -) 40 mg PO DAILY [facility] Last Admin: 04/09/17 10:01 Dose: 40 mg Lisinopril (Prinivil) 2.5 mg PO DAILY [facility] Last Admin: 04/09/17 10:01 Dose: 2.5 mg Metformin HCl (Glucophage -) 500 mg PO BIDI [facility] Last Admin: 04/09/17 16:35 Dose: 500 mg Metoprolol Succinate (Toprol Xl -) 50 mg PO DAILY [facility] Last Admin: 04/09/17 10:01 Dose: 50 mg - Objective Vital Signs: Vital Signs Temperature 98.4 F 04/09/17 15:00 Pulse Rate 64 04/09/17 15:00 Respiratory Rate 18 04/09/17 15:00 Blood Pressure 122/67 04/09/17 15:00 O2 Sat by Pulse Oximetry (%) 94 L 04/08/17 20:00 Constitutional: Yes: No Distress HENT: Yes: Atraumatic Neck: Yes: Supple Cardiovascular: Yes: Regular Rate and Rhythm Respiratory: Yes: CTA Bilaterally Gastrointestinal: Yes: Normal Bowel Sounds Extremities: Yes: WNL Neurological: Yes: Alert, Oriented Labs: CBC, BMP 04/07/17 15:00 04/07/17 15:50 INR, PTT INR 1.22 (0.82-1.09) H 04/07/17 15:00 Problem List - Problems (1) Chest pain Assessment/Plan: tele monitoring fu cardiac enzymes...negative for cardiac cath Code(s): R07.9 - CHEST PAIN, UNSPECIFIED (2) Anxiety and depression Assessment/Plan: stable now Code(s): F41.8 - OTHER SPECIFIED ANXIETY DISORDERS (3) COPD (chronic obstructive pulmonary disease) Assessment/Plan: stable Code(s): J44.9 - CHRONIC OBSTRUCTIVE PULMONARY DISEASE, UNSPECIFIED (4) Diabetes Assessment/Plan: on meds bgms Code(s): E11.9 - TYPE 2 DIABETES MELLITUS WITHOUT COMPLICATIONS Qualifiers: (5) HTN (hypertension), benign Assessment/Plan: on meds stable Code(s): I10 - ESSENTIAL (PRIMARY) HYPERTENSION (6) Hyperlipidemia Assessment/Plan: on meds stable Code(s): E78.5 - HYPERLIPIDEMIA, UNSPECIFIED
--- NOTE | 2017-04-09 19:56 | DS ---
Physical Examination Vital Signs: Vital Signs Temperature 98.4 F 04/09/17 15:00 Pulse Rate 64 04/09/17 15:00 Respiratory Rate 18 04/09/17 15:00 Blood Pressure 122/67 04/09/17 15:00 O2 Sat by Pulse Oximetry (%) 94 L 04/08/17 20:00 Constitutional: Yes: No Distress HENT: Yes: Atraumatic Neck: Yes: Supple Cardiovascular: Yes: Regular Rate and Rhythm Respiratory: Yes: CTA Bilaterally Gastrointestinal: Yes: Normal Bowel Sounds Extremities: Yes: WNL Neurological: Yes: Alert, Oriented Labs: CBC, BMP 04/07/17 15:00 04/07/17 15:50 Discharge Summary Reason For Visit: CHEST PAIN Current Active Problems Atypical chest pain (Acute) COPD exacerbation (Acute) Chest pain (Acute) Pulmonary hypertension (Acute) - Instructions Referrals: Yamilet Engle MD [Primary Care Provider] - Disposition: TRANSFER ACUTE CARE/OTHER HOSP - Home Medications Comprehensive Discharge Medication List: Ambulatory Orders Atorvastatin Ca [Lipitor] 40 mg PO HS tablet 11/12/15 Metformin HCl [Glucophage -] 500 mg PO BIDI tablet 11/12/15 Metoprolol Succinate [Toprol XL -] 50 mg PO DAILY tab.sr.24h 11/12/15 Ranitidine [Zantac -] 150 mg PO BID tablet 11/12/15 Sertraline HCl [Zoloft -] 25 mg PO DAILY tablet 11/12/15 Apixaban [Eliquis] 5 mg PO BID 12/22/15 Diltiazem Cd [Cardizem Cd -] 360 mg PO DAILY #60 cap.cd.24h 03/25/16 Furosemide [Lasix -] 40 mg PO DAILY 10/06/16 Dextromethorphan HBr [Robitussin] 15 mg PO BID #30 capsule 02/05/[address] [facility] care
== END 2017-04-09 19:45 | disposition short-term general hospital (02) ==
LOC: JER 13:48 → JERBED 17:38 → J4W 21:06
PROVIDERS: ADMIT Internal Medicine; ATTEND Internal Medicine
PROC: 3E033GC Introduction of Other Therapeutic Substance into Peripheral Vein, Percutaneous Approach (ICD-10-PCS; principal; 2017-04-07)
PROC: 3E013GC Introduction of Other Therapeutic Substance into Subcutaneous Tissue, Percutaneous Approach (ICD-10-PCS; 2017-04-07)
PROC: 3E0F7GC Introduction of Other Therapeutic Substance into Respiratory Tract, Via Natural or Artificial Opening (ICD-10-PCS; 2017-04-07)
DX: R07.89 Other chest pain (principal); I10 Essential (primary) hypertension; I25.10 Atherosclerotic heart disease of native coronary artery without angina pectoris; I48.0 Paroxysmal atrial fibrillation; I27.20 Pulmonary hypertension, unspecified; I47.1 Supraventricular tachycardia; I50.30 Unspecified diastolic (congestive) heart failure; E11.9 Type 2 diabetes mellitus without complications; E78.5 Hyperlipidemia, unspecified; G47.33 Obstructive sleep apnea (adult) (pediatric); J44.1 Chronic obstructive pulmonary disease with (acute) exacerbation; F41.8 Other specified anxiety disorders; E66.01 Morbid (severe) obesity due to excess calories; Z68.42 Body mass index [BMI] 45.0-49.9, adult; Z79.84 Long term (current) use of oral hypoglycemic drugs; Z88.8 Allergy status to other drugs, medicaments and biological substances; Z95.5 Presence of coronary angioplasty implant and graft; Z86.79 Personal history of other diseases of the circulatory system
CPT/HCPCS: 36415; 71045-TC; 80053; 80061; 81003; 82550; 82962; 83721; 83880; 84484; 85025; 85610; 93005; 93010; 93306-TC; 94640; 96372; 96374; 99284-25; G0378

== ENCOUNTER 2017-05-11 14:33 | Observation (INO) | payer OTHER ==
[2017-05-11] MEDS ORDERED: METOCLOPRAMIDE HCL INJECTION 10 MG/2 ML VIAL IVPUSH ONE (15:49)
[2017-05-11] MEDS ORDERED: METOCLOPRAMIDE HCL INJECTION 10 MG/2 ML VIAL ONE (15:55)
[2017-05-11 16:01] LABS: BASO % 0.5 % (0-2.0); EOS % 1.7 % (0-4.5); HEMATOCRIT 42.1 % (32.4-45.2); HEMOGLOBIN 14.7 GM/dL (10.7-15.3); LYMPH % 19.7 % (8-40); MCH 31.7 pg (25.7-33.7); MEAN CELL VOLUME 90.7 fl (80-96); MEAN PLT VOLUME 8.1 fl (7.5-11.1); MONO % 8.9 % (3.8-10.2); NEUT % 69.2 % (42.8-82.8); PLATELET COUNT 208 K/MM3 (134-434); RBC 4.64 M/mm3 (3.60-5.2); RDW 14.5 % (11.6-15.6); WHITE BLOOD COUNT 5.4 K/mm3 (4.0-10.0)
--- NOTE | 2017-05-11 16:13 | PDOC ---
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 She is also complaining of associated right sided headache of insidious onset with gradual worsening. She endorses some nausea. Denies fevers, chills. Denies recent travel, leg swelling, history of blood clots. Patient states that she has been upset recently by her relationship with her daughter. Past History - Past Medical History Allergies/Adverse Reactions: Allergies Allergy/AdvReac Type Severity Reaction Status Date / Time pregabalin [From Lyrica] Allergy Intermediate Verified 03/15/17 14:28 budesonide [From Symbicort] Allergy Verified 03/15/17 14:28 celecoxib [From Celebrex] Allergy Verified 03/15/17 14:28 formoterol fumarate Allergy Verified 03/15/17 14:28 [From Symbicort] sulfacetamide sodium Allergy Verified 03/15/17 14:28 [From Sulfamide] Home Medications: Ambulatory Orders Atorvastatin Ca [Lipitor] 40 mg PO HS tablet 11/12/15 Metoprolol Succinate [Toprol XL -] 50 mg PO DAILY tab.sr.24h 11/12/15 Ranitidine [Zantac -] 150 mg PO BID tablet 11/12/15 Sertraline HCl [Zoloft -] 25 mg PO DAILY tablet 11/12/15 metFORMIN HCL [Glucophage -] 500 mg PO BIDI tablet 11/12/15 Apixaban [Eliquis] 5 mg PO BID 12/22/15 Diltiazem Cd [Cardizem Cd -] 360 mg PO DAILY #60 cap.cd.24h 03/25/16 Furosemide [Lasix -] 40 mg PO DAILY 10/06/16 Anemia: No Asthma: Yes Cancer: No Cardiac Disorders: Yes (2009 STENT X1,, LINQ) 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) COPD: Yes CHF: No DVT: No Dementia: No Diabetes: Yes GI Disorders: Yes (UMBILICAL HERNIA) Disorders: No HTN: Yes Hypercholesterolemia: Yes Liver Disease: No Seizures: No Thyroid Disease: No - Surgical History Abdominal Surgery: No Appendectomy: No Cardiac Surgery: Yes (STENT X 1, LOOP RECORDER INSERTION) Cholecystectomy: No Lung Surgery: Yes (biopsy May 2013) Neurologic Surgery: Yes (brain aneurysm clipped) Orthopedic Surgery: No - Immunization History Td Vaccination: Yes Immunization Up to Date: Yes - Suicide/Smoking/Psychosocial Hx Smoking Status: Yes Smoking History: Former smoker Years of Tobacco Use: 0 Have you smoked in the past 12 months: No Number of Cigarettes Smoked Daily: 0 If you are a former smoker, when did you quit?: 40 yrs Cigars Per Day: 0 Information on smoking cessation initiated: No 'Breaking Loose' booklet given: 08/17/13 Hx Alcohol Use: No Drug/Substance Use Hx: No Substance Use Type: None Hx Substance Use Treatment: No Review of Systems - Review of Systems Comments:: 05/11/17 16:11 GENERAL/CONSTITUTIONAL: No fever or chills. No weakness. HEAD, EYES, EARS, NOSE AND THROAT: No change in vision. No sore throat. CARDIOVASCULAR: Positive for chest pain and shortness of breath RESPIRATORY: No cough, wheezing, or hemoptysis. GASTROINTESTINAL: Positive for nausea. Negative for vomiting, diarrhea or constipation. GENITOURINARY: No dysuria, frequency, or change in urination. MUSCULOSKELETAL: No joint or muscle swelling or pain. No neck or back pain. SKIN: No rash NEUROLOGIC: Positive for headache. Negative vertigo, loss of consciousness, or change in strength/sensation. HEMATOLOGIC/LYMPHATIC: No anemia, easy bleeding, or history of blood clots. ALLERGIC/IMMUNOLOGIC: No hives or skin allergy. *Physical Exam - Vital Signs Last Vital Signs Temp Pulse Resp BP Pulse Ox 98.4 F 69 20 174/89 99 05/11/17 14:49 05/11/17 15:04 05/11/17 14:49 05/11/17 14:49 05/11/17 15:04 - Physical Exam Comments: 05/11/17 16:12 GENERAL: Awake, alert, and fully oriented, tearful HEAD: No signs of trauma, normocephalic, atraumatic EYES: PERRLA, EOMI, sclera anicteric, conjunctiva clear ENT: Auricles normal inspection, hearing grossly normal, nares patent, oropharynx clear without exudates. Moist mucosa NECK: Normal ROM, supple, no lymphadenopathy, JVD, or masses LUNGS: No distress, speaks full sentences, clear to auscultation bilaterally HEART: Regular rate and rhythm, normal S1 and S2, no murmurs, rubs or gallops, peripheral pulses normal and equal bilaterally. ABDOMEN: Soft, nontender, normoactive bowel sounds. No guarding, no rebound. No masses EXTREMITIES: Normal inspection, Normal range of motion, no edema. No clubbing or cyanosis. NEUROLOGICAL: Cranial nerves II through XII grossly intact. Normal speech, no focal sensorimotor deficits SKIN: Warm, Dry, normal turgor, no rashes or lesions noted. Heart Score/ECG Review - History History: Moderately suspicious - Electrocardiogram EKG: Normal - Age Age: >/= 65 - Risk Factors Risk Factors Heart Score: Yes Hx Hypertension, Yes Hx Diabetes, Yes Hx Obesity Based on the list above the patient has:: >/=3 risk factors or Hx atherosclerotic disease - Troponin Troponin: </= normal limit - Score Heart Score - Total: 5 ED Treatment Course - LABORATORY CBC & Chemistry Diagram: 05/11/17 15:41 05/11/17 15:41 - ADDITIONAL ORDERS Additional order review: 05/11/17 15:41 RBC 4.64 MCV 90.7 MCHC 35.0 RDW 14.5 MPV 8.1 Neutrophils % 69.2 Lymphocytes % 19.7 Monocytes % 8.9 Eosinophils % 1.7 Basophils % 0.5 - RADIOLOGY Radiology Studies Ordered: Category Date Time Status CHEST CTA [CT] Stat CT Scan 05/11/17 15:[address] WITHOUT CONTRAST [CT] Stat CT Scan 05/11/17 15:19 Ordered CHEST X-RAY PORTABLE* [RAD] Stat Radiology 05/11/17 15:18 Completed Medical Decision Making - Medical Decision Making 05/11/17 16:13 Patient is a 71F with history of thoracic aortic aneurysm stenting, aneurysm s/ p clipping, DM, 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 Vital signs stable, notable for elevated blood pressure. Patient has large amount of risk factors for SAH and has history of prior thoracic aortic disease. Differential diagnosis includes, but is not limited to: SAH, PE, ACS, arrhythmia. Will evaluate with cbc, cmp, trop, pt/inr , cta chest, ct head, ekg. Believe it unlikely patient has SAH, will treat headache with reglan. EKG shows normal sinus rhythm with normal rate (61). Borderline leftward axis. No st elevations/depressions. No significant t wave abnormalities. Normal LA/QRS /QTc intervals. 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 05/11/17 18:51 Laboratory Tests 05/11/17 05/11/17 05/11/17 15:41 15:41 15:41 WBC 5.4 Hgb 14.7 Hct 42.1 Plt Count 208 INR 1.01 BUN 15 Creatinine 1.0 Creat Clearance w eGFR 54.50 Troponin I < 0.02 CBC normal. INR normal. CMP reassuring. Trop negative. D-dimer negative. Signed out to Dr Cui. *DC/Admit/Observation/Transfer Diagnosis at time of Disposition: Chest pain - Discharge Dispostion Condition at time of disposition: Stable - Referrals Referrals: Yamilet Engle MD [Primary Care Provider] - - Patient Instructions - Post Discharge Activity
[2017-05-11 16:27] LABS: ALBUMIN 3.3 g/dl (3.4-5.0); ANION GAP 9 (8-16); BILIRUBIN,TOTAL 0.4 mg/dL (0.2-1.0); BLOOD UREA NITROGEN 15 mg/dL (7-18); CALCIUM 8.2 mg/dL (8.5-10.1); CHLORIDE 108 mmol/L (98-107); CO2 26 mmol/L (21-32); GLUCOSE,RANDOM 149 mg/dL (74-106); MAGNESIUM 1.9 mg/dL (1.8-2.4); POTASSIUM 3.6 mmol/L (3.5-5.1); SGOT/AST 7 U/L (15-37); SGPT/ALT 23 U/L (12-78); SODIUM 143 mmol/L (136-145); TOT PROT 6.5 g/dl (6.4-8.2)
[2017-05-11 16:30] LABS: ALK PHOS 70 U/L (45-117); INR 1.01 (0.82-1.09); PROTHROMBIN TIME (PATIENT) 11.4 SEC (9.98-11.88)
--- NOTE | 2017-05-11 17:31 | PDOC ---
Attending Attestation - Resident Resident Name: Rodrigo Roca - ED Attending Attestation I have performed the following: I have examined & evaluated the patient, The case was reviewed & discussed with the resident, I agree w/resident's findings & plan, Exceptions are as noted - HPI HPI: Ms Kan is a 71 yo F who presents to the ER with a complaint of chest pain She has a PMH significant for HTN, DM, HLD, CAD s/p stent x 1, Diastolic CHF, FRANSISCA, COPD, anxiety htn, dm, hl, cad (1 stent in 2008), PAF, diastolic chf, FRANSISCA, copd, anxiety/depression, with multiple recent admissions for chest pain and shortness of breath Pt presents with a complaint of chest pain No nausea, no vomiting Denies fevers, chills. Denies recent travel, leg swelling, history of dvt - Physicial Exam PE: 05/11/17 17:40 GENERAL: The patient is in no acute distress. HEAD: Normal with no signs of trauma. EYES: PERRLA, EOMI, sclera anicteric, conjunctiva clear. ENT: Ears normal, nares patent, oropharynx clear without exudates. Moist mucous membranes. NECK: Normal range of motion, supple JVD, or masses. LUNGS: Breath sounds equal, clear to auscultation bilaterally. No wheezes, and no crackles. HEART:Regular rate and rhythm, normal S1 and S2 without murmur, rub or gallop. ABDOMEN: Soft, nontender, normoactive bowel sounds. No guarding, no rebound. No masses palpable. EXTREMITIES: Normal range of motion, no edema NEUROLOGICAL: Cranial nerves II through XII grossly intact. Normal speech. No focal neurological deficits. MUSCULOSKELETAL: Back non-tender to palpation, no CVA tenderness SKIN: Warm, Dry, normal turgor, no rashes or lesions noted. - Medical Decision Making 05/11/17 17:41 Laboratory Tests 05/11/17 05/11/17 15:41 15:41 WBC 5.4 Hgb 14.7 Hct 42.1 Plt Count 208 Sodium 143 Potassium 3.6 Chloride 108 H Carbon Dioxide 26 Anion Gap 9 BUN 15 Creatinine 1.0 Random Glucose 149 H Creatine Kinase 51 Troponin I < 0.[address] Admit Pt being followed by Dr Roca Signed out to 4pm attending - Dr. Wallace Anticipate admission
--- NOTE | 2017-05-11 23:07 | HP ---
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 She is also complaining of associated right sided headache of insidious onset with gradual worsening. She endorses some nausea. Denies fevers, chills. Denies recent travel, leg swelling, history of blood clots. Patient states that she has been upset recently by her relationship with her daughter.also has some housing issues - Past Medical History Cardiovascular: Yes: CAD, HTN, Hyperlipdemia, Other (PSVT in 2012) Pulmonary: Yes: Sleep Apnea (risks for FRANSISCA) Renal/: Yes: Renal Inusuff Psych: Yes: Anxiety Endocrine: Yes: Diabetes Mellitus - Past Surgical History Past Surgical History: Yes: Stent - Smoking History Smoking history: Former smoker Have you smoked in the past 12 months: No Aproximately how many cigarettes per day: 0 If you are a former smoker, when did you quit?: 40 yrs - Alcohol/Substance Use Hx Alcohol Use: No - Social History History of Recent Travel: No Home Medications - Allergies Allergies/Adverse Reactions: Allergies Allergy/AdvReac Type Severity Reaction Status Date / Time pregabalin [From Lyrica] Allergy Intermediate Verified 03/15/17 14:28 budesonide [From Symbicort] Allergy Verified 03/15/17 14:28 celecoxib [From Celebrex] Allergy Verified 03/15/17 14:28 formoterol fumarate Allergy Verified 03/15/17 14:28 [From Symbicort] sulfacetamide sodium Allergy Verified 03/15/17 14:28 [From Sulfamide] - Home Medications Home Medications: Ambulatory Orders Atorvastatin Ca [Lipitor] 40 mg PO HS tablet 11/12/15 Metoprolol Succinate [Toprol XL -] 50 mg PO DAILY tab.sr.24h 11/12/15 Ranitidine [Zantac -] 150 mg PO BID tablet 11/12/15 Sertraline HCl [Zoloft -] 25 mg PO DAILY tablet 11/12/15 metFORMIN HCL [Glucophage -] 500 mg PO BIDI tablet 09/05/16 Apixaban [Eliquis] 5 mg PO BID 12/22/15 Diltiazem Cd [Cardizem Cd -] 360 mg PO DAILY #60 cap.cd.24h 03/25/16 Furosemide [Lasix -] 40 mg PO DAILY 10/06/16 Physical Examination Vital Signs: Vital Signs Temperature 98.4 F 05/11/17 14:49 Pulse Rate 69 05/11/17 15:04 Respiratory Rate 20 05/11/17 14:49 Blood Pressure 174/89 05/11/17 14:49 O2 Sat by Pulse Oximetry (%) 99 05/11/17 15:04 Constitutional: Yes: No Distress HENT: Yes: Atraumatic Neck: Yes: Supple Cardiovascular: Yes: Regular Rate and Rhythm Respiratory: Yes: CTA Bilaterally Gastrointestinal: Yes: Normal Bowel Sounds Extremities: Yes: WNL Neurological: Yes: Alert, Oriented Labs: CBC, BMP 05/11/17 15:41 05/11/17 15:41 Problem List - Problems (1) Chest pain Assessment/Plan: will fu troponins get cardiology on board Code(s): R07.9 - CHEST PAIN, UNSPECIFIED (2) Anxiety and depression Assessment/Plan: on meds Code(s): F41.8 - OTHER SPECIFIED ANXIETY DISORDERS (3) COPD exacerbation Code(s): J44.1 - CHRONIC OBSTRUCTIVE PULMONARY DISEASE W (ACUTE) EXACERBATION (4) Diabetes Assessment/Plan: on meds bgms Code(s): E11.9 - TYPE 2 DIABETES MELLITUS WITHOUT COMPLICATIONS Qualifiers: (5) HTN (hypertension), benign Assessment/Plan: on meds stable Code(s): I10 - ESSENTIAL (PRIMARY) HYPERTENSION (6) Hyperlipidemia Assessment/Plan: on meds Code(s): E78.5 - HYPERLIPIDEMIA, UNSPECIFIED (7) Obesity Code(s): E66.9 - OBESITY, UNSPECIFIED Assessment/Plan Laboratory Tests 05/11/17 05/11/17 05/11/17 15:41 15:41 15:41 WBC 5.4 RBC 4.64 Hgb 14.7 Hct 42.1 MCV 90.7 MCH 31.7 MCHC 35.0 RDW 14.5 Plt Count 208 MPV 8.1 Neutrophils % 69.2 Lymphocytes % 19.7 Monocytes % 8.9 Eosinophils % 1.7 Basophils % 0.5 PT with INR 11.40 INR 1.01 D-Dimer 244 Sodium 143 Potassium 3.6 Chloride 108 H Carbon Dioxide 26 Anion Gap 9 BUN 15 Creatinine 1.0 Creat Clearance w eGFR 54.50 Random Glucose 149 H Calcium 8.2 L Magnesium 1.9 Total Bilirubin 0.4 D AST 7 L ALT 23 Alkaline Phosphatase 70 Creatine Kinase 51 Troponin I < 0.02 Total Protein 6.5 Albumin 3.3 L Active Medications Generic Name Dose Route Start Last Admin Trade Name Freq PRN Reason Stop Dose Admin Apixaban 5 mg 05/12/17 10:00 05/12/17 10:03 Eliquis - PO 5 mg BID BRU[facility] Administration Atorvastatin Calcium 40 mg 05/12/17 22:00 Lipitor - PO HS BRUCE Diltiazem HCl 360 mg 05/12/17 10:00 05/12/17 10:03 Cardizem Cd - PO 360 mg DAILY [facility] Administration Furosemide 40 mg 05/12/17 10:00 05/12/17 10:03 Lasix - PO 40 mg DAILY BRUCE Administration Metformin HCl 500 mg 05/12/17 07:00 05/12/17 06:32 Glucophage - PO Not Given BIDI BRUCE Metoprolol Succinate 50 mg 05/12/17 10:00 05/12/17 10:03 Toprol Xl - PO 50 mg DAILY BRUEC Administration Ranitidine HCl 150 mg 05/12/17 10:00 05/12/17 10:03 Zantac - PO 150 mg BID BRUCE Administration Sertraline HCl 25 mg 05/12/17 10:00 05/12/17 10:03 Zoloft - PO 25 mg DAILY [facility] Administration
[2017-05-12 03:11] VITALS: BMI 48.9
[2017-05-12] MEDS ORDERED: metFORMIN HCL 500 MG TABLET (FP) PO SCH (07:00)
[2017-05-12] MEDS ORDERED: SERTRALINE HCL 25 MG TABLET (FP) PO SCH (10:00)
[2017-05-12] MEDS ORDERED: RANITIDINE HCL 150 MG TABLET (FP) PO SCH (10:00)
[2017-05-12] MEDS ORDERED: FUROSEMIDE 20 MG TABLET (FP) PO SCH (10:00)
[2017-05-12] MEDS ORDERED: APIXABAN 5 MG TABLET PO SCH (10:00)
--- NOTE | 2017-05-12 14:26 | EKG ---
Test Reason : Blood Pressure : / mmHG Vent. Rate : 061 BPM Atrial Rate : 061 BPM P-R Int : 152 ms QRS Dur : 084 ms QT Int : 428 ms P-R-T Axes : 029 -16 090 degrees QTc Int : 430 ms NORMAL SINUS RHYTHM POSSIBLE ANTERIOR INFARCT (CITED ON OR BEFORE 23-MAR-2016) ABNORMAL ECG Confirmed by MD Durand Edward ([id number]) on 05/12/2017 2:26:23 PM Referred By: Confirmed By:Joel Durand MD
[2017-05-12 14:35] VITALS: BP 174/86; PULSE 67; TEMP 98.7
--- NOTE | 2017-05-12 14:44 | DS ---
Physical Examination Vital Signs: Vital Signs Temperature 98.7 F 05/12/17 14:33 Pulse Rate 67 05/12/17 14:33 Respiratory Rate 20 05/12/17 14:33 Blood Pressure 174/86 05/12/17 14:33 O2 Sat by Pulse Oximetry (%) 96 05/12/17 07:31 Labs: CBC, BMP 05/11/17 15:41 05/11/17 15:41 Discharge Summary Reason For Visit: CHEST PAIN Current Active Problems Chest pain (Acute) Condition: Stable - Instructions Referrals: Yamilet Engel MD [Primary Care Provider] - - Home Medications Comprehensive Discharge Medication List: Ambulatory Orders Atorvastatin Ca [Lipitor] 40 mg PO HS tablet 11/12/15 Metoprolol Succinate [Toprol XL -] 50 mg PO DAILY tab.sr.24h 11/12/15 Ranitidine [Zantac -] 150 mg PO BID tablet 11/12/15 Sertraline HCl [Zoloft -] 25 mg PO DAILY tablet 11/12/15 metFORMIN HCL [Glucophage -] 500 mg PO BIDI tablet 11/12/15 Apixaban [Eliquis] 5 mg PO BID 12/22/15 Diltiazem Cd [Cardizem Cd -] 360 mg PO DAILY #60 cap.cd.24h 03/25/16 Furosemide [Lasix -] 40 mg PO DAILY 10/06/16 troponins negative x 3 doing well dc home
--- NOTE | 2017-05-12 15:21 | PN ---
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 She is also complaining of associated right sided headache of insidious onset with gradual worsening. She endorses some nausea. Denies fevers, chills. Denies recent travel, leg swelling, history of blood clots. Patient states that she has been upset recently by her relationship with her daughter. - Current Medication List Current Medications: Active Medications Apixaban (Eliquis -) 5 mg PO BID [facility] Last Admin: 05/12/17 10:03 Dose: 5 mg Atorvastatin Calcium (Lipitor -) 40 mg PO [facility] Diltiazem HCl (Cardizem Cd -) 360 mg PO DAILY [facility] Last Admin: 05/12/17 10:03 Dose: 360 mg Furosemide (Lasix -) 40 mg PO DAILY [facility] Last Admin: 05/12/17 10:03 Dose: 40 mg Metformin HCl (Glucophage -) 500 mg PO BIDI [facility] Last Admin: 05/12/17 06:32 Dose: Not Given Metoprolol Succinate (Toprol Xl -) 50 mg PO DAILY [facility] Last Admin: 05/12/17 10:03 Dose: 50 mg Ranitidine HCl (Zantac -) 150 mg PO BID [facility] Last Admin: 05/12/17 10:03 Dose: 150 mg Sertraline HCl (Zoloft -) 25 mg PO DAILY [facility] Last Admin: 05/12/17 10:03 Dose: 25 mg - Objective Vital Signs: Vital Signs Temperature 98.7 F 05/12/17 14:33 Pulse Rate 67 05/12/17 14:33 Respiratory Rate 20 05/12/17 14:55 Blood Pressure 174/86 05/12/17 14:33 O2 Sat by Pulse Oximetry (%) 96 05/12/17 14:55 Labs: CBC, BMP 05/11/17 15:41 05/11/17 15:41 INR, PTT INR 1.01 (0.82-1.09) 05/11/17 15:41
--- NOTE | 2017-05-12 15:58 | CON.CARD ---
Consult Consult Specialty:: cardiology Reason for Consultation:: chest pain - History of Present Illness Chief Complaint: Pt is A&Ox3; asymjtpomaic History of Present Illness: Patient is a 71 white woman with history of thoracic aortic aneurysm stenting, cerebral aneurysm s/p clipping,(neurologist: Dr. 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 She is also complaining of associated right sided headache of insidious onset with gradual worsening. She endorses some nausea. Denies fevers, chills. Denies recent travel, leg swelling, history of blood clots. Patient states that she has been upset recently by her relationship with her daughter. Hx recent coronary angiogram (2018): 2 vessel disease. Plans for coronary stents if able to take aspirin (pt's interventionalist, Dr. Ware awaits neurologic consultation for ability to add aspirin before undergoing stent). - History Source History Provided By: Patient, Medical Record Limitations to Obtaining History: Poor Historian - Past Medical History Cardio/Vascular: Yes: CAD, CHF, HTN, Hyperlipdemia, Other (PSVT in 2011) Pulmonary: Yes: COPD, Sleep Apnea (risks for FRANSISCA) Renal/: Yes: Renal Inusuff Reproductive: Yes: Postmenopausal ...: No Psych: Yes: Anxiety Endocrine: Yes: Diabetes Mellitus Additional Medical History: Condition Date Treating Physician Comments. ASHD promus stent pLAD 2008. CHF diastolic. DM. GERD. HHD. HTN. Hyperlipidemia. Morbid obesity. Negative MIBI ST September 2011 And May 2013. SVT - Past Surgical History Past Surgical History: Yes: Stent Additional Surgical History: cerebral aneuysm clipping - Alcohol/Substance Use Hx Alcohol Use: No - Smoking History Smoking history: Former smoker Have you smoked in the past 12 months: No Aproximately how many cigarettes per day: 0 If you are a former smoker, when did you quit?: 40 yrs - Social History Usual Living Arrangement: Other (with nephew; her daughter is close to her) History of Recent Travel: No Home Medications - Allergies Allergies/Adverse Reactions: Allergies Allergy/AdvReac Type Severity Reaction Status Date / Time pregabalin [From Lyrica] Allergy Intermediate Verified 03/15/17 14:28 budesonide [From Symbicort] Allergy Verified 03/15/17 14:28 celecoxib [From Celebrex] Allergy Verified 03/15/17 14:28 formoterol fumarate Allergy Verified 03/15/17 14:28 [From Symbicort] sulfacetamide sodium Allergy Verified 03/15/17 14:28 [From Sulfamide] - Home Medications Home Medications: Ambulatory Orders Atorvastatin Ca [Lipitor] 40 mg PO HS tablet 11/12/15 Metoprolol Succinate [Toprol XL -] 50 mg PO DAILY tab.sr.24h 11/12/15 Ranitidine [Zantac -] 150 mg PO BID tablet 11/12/15 Sertraline HCl [Zoloft -] 25 mg PO DAILY tablet 11/12/15 metFORMIN HCL [Glucophage -] 500 mg PO BIDI tablet 11/12/15 Apixaban [Eliquis] 5 mg PO BID 12/22/15 Diltiazem Cd [Cardizem Cd -] 360 mg PO DAILY #60 cap.cd.24h 03/25/16 Furosemide [Lasix -] 40 mg PO DAILY 10/06/16 Vital Signs: Vital Signs Temperature 98.7 F 05/12/17 14:33 Pulse Rate 67 05/12/17 14:33 Respiratory Rate 20 05/12/17 14:55 Blood Pressure 174/86 05/12/17 14:33 O2 Sat by Pulse Oximetry (%) 96 05/12/17 14:55 - Other Data Labs, Other Data: CBC, BMP 05/11/17 15:41 05/11/17 15:41 INR, PTT INR 1.01 (0.82-1.09) 05/11/17 15:41 Troponin, BNP 05/11/17 05/12/17 05/12/17 15:41 00:00 08:00 Troponin I < 0.02 0.02 < 0.02 Troponin, BNP 05/11/17 05/12/17 05/12/17 15:41 00:00 08:00 Troponin I < 0.02 0.02 < 0.02 Problem List - Problems (1) Coronary artery disease Assessment/Plan: TNI < 0.02 x 3. EKG: no acute STT changes. Continue metoprolol. Continue clopidogrel. On apixaban. Continue statin. Add iMDUR 30 MG DAILY. Pt so see interventionalist, Dr. Ware, this weekend. Code(s): I25.10 - ATHSCL HEART DISEASE OF [place] CORONARY ARTERY W/O ANG PCTRS (2) Anxiety and depression Code(s): F41.8 - OTHER SPECIFIED ANXIETY DISORDERS (3) Atypical chest pain Code(s): R07.89 - OTHER CHEST PAIN (4) COPD exacerbation Code(s): J44.1 - CHRONIC OBSTRUCTIVE PULMONARY DISEASE W (ACUTE) EXACERBATION (5) Morbid obesity Code(s): E66.01 - MORBID (SEVERE) OBESITY DUE TO EXCESS CALORIES (6) Pulmonary hypertension Code(s): I27.20 - PULMONARY HYPERTENSION, UNSPECIFIED (7) Diabetes Code(s): E11.9 - TYPE 2 DIABETES MELLITUS WITHOUT COMPLICATIONS Qualifiers: (8) HTN (hypertension), benign Code(s): I10 - ESSENTIAL (PRIMARY) HYPERTENSION (9) Hyperlipidemia Code(s): E78.5 - HYPERLIPIDEMIA, UNSPECIFIED (10) Paroxysmal atrial fibrillation Code(s): I48.0 - PAROXYSMAL ATRIAL FIBRILLATION (11) Sleep apnea Code(s): G47.30 - SLEEP APNEA, UNSPECIFIED
[2017-05-12] MEDS ORDERED: CLOPIDOGREL BISULFATE 75 MG TABLET (FP) PO SCH (16:15)
[2017-05-12] MEDS ORDERED: ATORVASTATIN CA 40 MG TABLET (FP) PO SCH (22:00)
== END 2017-05-12 16:08 | disposition home or self-care (01) ==
LOC: JER 14:33 → JERBED 20:28 → J4W 05-12 00:05
PROVIDERS: ADMIT Internal Medicine; ATTEND Internal Medicine
PROC: 3E033GC Introduction of Other Therapeutic Substance into Peripheral Vein, Percutaneous Approach (ICD-10-PCS; principal; 2017-05-11)
DX: R07.9 Chest pain, unspecified (principal); F41.8 Other specified anxiety disorders; J44.1 Chronic obstructive pulmonary disease with (acute) exacerbation; E11.9 Type 2 diabetes mellitus without complications; I10 Essential (primary) hypertension; I25.10 Atherosclerotic heart disease of native coronary artery without angina pectoris; I27.20 Pulmonary hypertension, unspecified; I50.30 Unspecified diastolic (congestive) heart failure; E78.5 Hyperlipidemia, unspecified; G47.33 Obstructive sleep apnea (adult) (pediatric); N28.9 Disorder of kidney and ureter, unspecified; E66.01 Morbid (severe) obesity due to excess calories; Z68.42 Body mass index [BMI] 45.0-49.9, adult; Z87.891 Personal history of nicotine dependence; Z86.79 Personal history of other diseases of the circulatory system; Z79.84 Long term (current) use of oral hypoglycemic drugs; Z95.5 Presence of coronary angioplasty implant and graft; Z88.2 Allergy status to sulfonamides; Z88.8 Allergy status to other drugs, medicaments and biological substances
CPT/HCPCS: 36415; 70450-TC; 71045-TC-FY; 71275-TC; 80053; 82550; 82962; 83735; 84484; 85025; 85379; 85610; 93005; 93010; 96374; 99285-25; G0378

== ENCOUNTER 2017-05-20 23:02 | Inpatient (IN) | payer OTHER ==
[2017-05-20 23:21] VITALS: BMI 49.0
--- NOTE | 2017-05-21 00:19 | PDOC ---
History of Present Illness <Ruddy Robles - Last Filed: 05/21/17 02:09> <Lobo Sellers - Last Filed: 05/21/17 02:21> - General Chief Complaint: Chest Pain Stated Complaint: CHEST PAIN Time Seen by Provider: 05/20/17 23:14 - History of Present Illness Initial Comments: 05/21/17 00:14 "The patient is a 71 year old female brought via EMS and presenting with family , with a significant past medical history of thoracic aortic aneurysm s/p repair , cerebral aneurysm s/p clipping, DM, HTN, CAD s/p stents (03/2017 at [facility]), who presents to the emergency department with chest pain and shortness of breath that started 1 hour prior to presentation. She describes her chest pain as localized in the middle, ranging from mild to moderate, without radiation or modifying factors. Pt states that she was walking when the pain started but does not believe that walking made the pain worse. Denies pleuritic nature to pain. Denies SOB currently. The patient has been to the ED numerous times in the past 4 years, with the last 4 visits being 02/05/17, , 04/07/17 and 05/11/17. She reports that this current episode of chest pain is similar to her previous episodes. She notes that she had one episode of vomit, non bilious and non bloody. The patient denies headache, dizziness, fever, chills, diarrhea and constipation. Denies dysuria, frequency, urgency and hematuria. Allergies: Sulfamide, Lyrica, Symbicort and Celebrex Past surgical history: thoracic aneurysm repair Social history: No alcohol, tobacco or drug use reported " (Lobo Sellers) Past History <Ruddy Robles - Last Filed: 05/21/17 02:09> - Past Medical History Anemia: No Asthma: Yes Cancer: No Cardiac Disorders: Yes (2009 STENT X1,, LINQ) 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) COPD: Yes CHF: No DVT: No Dementia: No Diabetes: Yes GI Disorders: Yes (UMBILICAL HERNIA) Disorders: No HTN: Yes Hypercholesterolemia: Yes Liver Disease: No Seizures: No Thyroid Disease: No - Surgical History Abdominal Surgery: No Appendectomy: No Cardiac Surgery: Yes (STENT X 1, LOOP RECORDER INSERTION) Cholecystectomy: No Lung Surgery: Yes (biopsy May 2013) Neurologic Surgery: Yes (brain aneurysm clipped) Orthopedic Surgery: No - Immunization History Td Vaccination: Yes Immunization Up to Date: Yes - Suicide/Smoking/Psychosocial Hx Smoking Status: Yes Smoking History: Never smoked Years of Tobacco Use: 0 Have you smoked in the past 12 months: No Number of Cigarettes Smoked Daily: 0 If you are a former smoker, when did you quit?: 40 yrs Cigars Per Day: 0 Information on smoking cessation initiated: No 'Breaking Loose' booklet given: 08/17/13 Hx Alcohol Use: No Drug/Substance Use Hx: No Substance Use Type: None Hx Substance Use Treatment: No <Lobo Sellers - Last Filed: 05/21/17 02:21> - Past Medical History Allergies/Adverse Reactions: Allergies Allergy/AdvReac Type Severity Reaction Status Date / Time pregabalin [From Lyrica] Allergy Intermediate Verified 03/15/17 14:28 budesonide [From Symbicort] Allergy Verified 03/15/17 14:28 celecoxib [From Celebrex] Allergy Verified 03/15/17 14:28 formoterol fumarate Allergy Verified 03/15/17 14:28 [From Symbicort] sulfacetamide sodium Allergy Verified 03/15/17 14:28 [From Sulfamide] Home Medications: Ambulatory Orders Atorvastatin Ca [Lipitor] 40 mg PO HS tablet 11/12/15 Metoprolol Succinate [Toprol XL -] 50 mg PO DAILY tab.sr.24h 11/12/15 Ranitidine [Zantac -] 150 mg PO BID tablet 11/12/15 Sertraline HCl [Zoloft -] 25 mg PO DAILY tablet 11/12/15 metFORMIN HCL [Glucophage -] 500 mg PO BIDI tablet 11/12/15 Apixaban [Eliquis] 5 mg PO BID 12/22/15 Diltiazem Cd [Cardizem Cd -] 360 mg PO DAILY #60 cap.cd.24h 03/25/16 Furosemide [Lasix -] 40 mg PO DAILY 10/06/16 Cardiac Specific PMH - Complaint Specific PMHX Pacemaker: No <Lobo Sellers - Last Filed: 05/21/17 02:21> Review of Systems <Ruddy Robles - Last Filed: 05/21/17 02:09> <Lobo Sellers - Last Filed: 05/21/17 02:21> - Review of Systems Comments:: 05/21/17 00:17 "GENERAL/CONSTITUTIONAL: No fever or chills. No weakness. HEAD, EYES, EARS, NOSE AND THROAT: No change in vision. No ear pain or discharge. No sore throat. CARDIOVASCULAR: (+) chest pain and shortness of breath. RESPIRATORY: No cough, wheezing, or hemoptysis. GASTROINTESTINAL: (+)nausea, vomiting. No diarrhea or constipation. GENITOURINARY: No dysuria, frequency, or change in urination. MUSCULOSKELETAL: No joint or muscle swelling or pain. No neck or back pain. SKIN: No rash NEUROLOGIC: No headache, vertigo, loss of consciousness, or change in strength/ sensation. ENDOCRINE: No increased thirst. No abnormal weight change. HEMATOLOGIC/LYMPHATIC: No anemia, easy bleeding, or history of blood clots. ALLERGIC/IMMUNOLOGIC: No hives or skin allergy." (Lobo Sellers) *Physical Exam <Ruddy Robles - Last Filed: 05/21/17 02:09> <Lobo Sellers - Last Filed: 05/21/17 02:21> - Vital Signs Last Vital Signs Temp Pulse Resp BP Pulse Ox 99.3 F 80 18 146/98 96 05/20/17 23:19 05/20/17 23:19 05/20/17 23:19 05/20/17 23:19 05/20/17 23:21 - Physical Exam Comments: 05/21/17 00:17 "GENERAL: Awake, alert, and fully oriented, in no acute distress HEAD: No signs of trauma EYES: PERRLA, EOMI, sclera anicteric, conjunctiva clear ENT: Auricles normal inspection, hearing grossly normal, nares patent, oropharynx clear without exudates. Moist mucosa NECK: Nontender, no stepoffs, Normal ROM, supple, no lymphadenopathy, JVD, or masses LUNGS: Breath sounds equal, clear to auscultation bilaterally. No wheezes, and no crackles HEART: Regular rate and rhythm, normal S1 and S2, no murmurs, rubs or gallops ABDOMEN: Soft, nontender, normoactive bowel sounds. No guarding, no rebound. No masses EXTREMITIES: Normal range of motion, no edema. No clubbing or cyanosis. No cords, erythema, or tenderness NEUROLOGICAL: Cranial nerves II through XII intact. 5/5 strength and sensation in all extremities, Normal speech, normal gait, normal cerebellar function SKIN: Warm, Dry, normal turgor, no rashes or lesions noted." (Lobo Sellers) Heart Score/ECG Review <Ruddy Robles - Last Filed: 05/21/17 02:09> - History History: Slightly suspicious - Electrocardiogram EKG: Normal - Age Age: >/= 65 - Risk Factors Risk Factors Heart Score: Yes Hx Hypercholesterolemia, Yes Hx Hypertension, Yes Hx Obesity Based on the list above the patient has:: >/=3 risk factors or Hx atherosclerotic disease - Troponin Troponin: </= normal limit - Score Heart Score - Total: 4 <Lobo Sellers - Last Filed: 05/21/17 02:21> - ECG Impressions Comment:: 05/21/17 00:17 NSR, no SUSAN/STDs, no TWIs, axis wnl, intervals wnl, rate 69 (Lobo Sellers) ED Treatment Course - LABORATORY CBC & Chemistry Diagram: 05/21/17 00:52 05/21/17 00:52 <Ruddy Robles - Last Filed: 05/21/17 02:09> - LABORATORY CBC & Chemistry Diagram: 05/21/17 00:52 05/21/17 00:52 <Lobo Sellers - Last Filed: 05/21/17 02:21> - ADDITIONAL ORDERS Additional order review: Laboratory Results 05/21/17 05/21/17 05/21/17 00:52 00:52 00:52 PTT (Actin FS) 35.0 H Sodium 144 Potassium 3.6 Chloride 107 Carbon Dioxide 25 Anion Gap 12 BUN 13 Creatinine 0.9 Creat Clearance w eGFR > 60 Random Glucose 125 H Calcium 8.7 Magnesium 2.3 Total Bilirubin 0.6 D AST 14 L ALT 18 Alkaline Phosphatase 60 Creatine Kinase 179 Creatine Kinase Index 0.8 CK-MB (CK-2) 1.542 Troponin I 0.14 H Total Protein 6.4 Albumin 3.2 L Lipase 121 05/21/17 00:52 RBC 4.49 MCV 92.9 MCHC 34.0 RDW 15.6 MPV 8.1 Neutrophils % 66.6 Lymphocytes % 20.0 Monocytes % 10.9 H Eosinophils % 1.9 Basophils % 0.6 - RADIOLOGY Radiology Studies Ordered: Category Date Time Status CHEST PA & LAT [RAD] Stat Radiology 05/21/17 00:01 Taken - Medications Given in the ED: ED Medications Discontinued Medications Generic Name Dose Route Start Last Admin Trade Name Freq PRN Reason Stop Dose Admin Aspirin 325 mg 05/21/17 01:42 05/21/17 01:58 Asa - PO 05/21/17 01:43 325 mg ONCE ONE Administration Medical Decision Making <Ruddy Roblese - Last Filed: 05/21/17 02:09> <Lobo Sellers - Last Filed: 05/21/17 02:21> - Medical Decision Making 05/21/17 02:09 Dr. Browning of cardiology was called at 2:10am. Dr. Bridges covering. [phone] (Ruddy Roblese) 05/21/17 00:18 71 F with chest pain and shortness of breath. Pt with no ischemic changes on EKG and atypical pain. However, pt has several cardiac risk factors, making ACS a concern. Pt without any s/s DVT/PE. She has h/o thoracic aortic aneurysm. However, pt presented with exact same pain 10 days ago and had CTA at that time that was negative for dissection/aneurysm. - Labs, serial trops, BNP - CXR - Cards consult - Admit tele 05/21/17 02:14 Pt with + troponin of 0.13. Aspirin given. Repeat EKG ordered. Dr. Bridges consulted - recommends admission to tele. Given pt is on eliquis (last dose at 6pm this evening), will defer heparin until 2nd troponin. Pt reassessed - reports only mild pain at this time. Spoke with Dr. Engle, who requests hospitalist tuck-in until AM. Pt admitted to tele obs under Dr. Knox. (VeritoLobo) *DC/Admit/Observation/Transfer <TravisRuddy Rodgers - Last Filed: 05/21/17 02:09> - Discharge Dispostion Admit: Yes <VeritoLobo - Last Filed: 05/21/17 02:21> Diagnosis at time of Disposition: Chest pain - Discharge Dispostion Decision to Admit order Date/Time: Decision to Admit Order Category Date Time Status Decision to Admit to Hospital Routine Admission 05/21/17 02:19 Active - Referrals Referrals: Yamilet Engle MD [Primary Care Provider] - - Patient Instructions - Post Discharge Activity - Attestations Physician Attestion: 05/21/17 02:19 I, Dr. Lobo Sellers MD, attest that this document has been prepared under my direction and personally reviewed by me in its entirety. I further attest, that it accurately reflects all work, treatment, procedures and medical decision -making performed by me. (Lobo Sellers)
[2017-05-21 01:28] LABS: BASO % 0.6 % (0-2.0); EOS % 1.9 % (0-4.5); HEMATOCRIT 41.7 % (32.4-45.2); HEMOGLOBIN 14.1 GM/dL (10.7-15.3); MCH 31.5 pg (25.7-33.7); MEAN CELL VOLUME 92.9 fl (80-96); MEAN PLT VOLUME 8.1 fl (7.5-11.1); MONO % 10.9 % (3.8-10.2); NEUT % 66.6 % (42.8-82.8); PLATELET COUNT 205 K/MM3 (134-434); RBC 4.49 M/mm3 (3.60-5.2); RDW 15.6 % (11.6-15.6); WHITE BLOOD COUNT 7.3 K/mm3 (4.0-10.0)
[2017-05-21 01:33] LABS: ALBUMIN 3.2 g/dl (3.4-5.0); ANION GAP 12 (8-16); BILIRUBIN,TOTAL 0.6 mg/dL (0.2-1.0); BLOOD UREA NITROGEN 13 mg/dL (7-18); CALCIUM 8.7 mg/dL (8.5-10.1); CHLORIDE 107 mmol/L (98-107); CO2 25 mmol/L (21-32); CREATININE 0.9 mg/dL (0.55-1.02); GLUCOSE,RANDOM 125 mg/dL (74-106); MAGNESIUM 2.3 mg/dL (1.8-2.4); POTASSIUM 3.6 mmol/L (3.5-5.1); SGOT/AST 14 U/L (15-37); SGPT/ALT 18 U/L (12-78); SODIUM 144 mmol/L (136-145); TOT PROT 6.4 g/dl (6.4-8.2)
[2017-05-21 01:36] LABS: ALK PHOS 60 U/L (45-117)
[2017-05-21] MEDS ORDERED: ASPIRIN 325 MG TABLET PO ONE (01:42)
[2017-05-21] MEDS ORDERED: ASPIRIN 325 MG TABLET ONE (01:55)
[2017-05-21 02:36] LABS: INR 1.08 (0.82-1.09); PROTHROMBIN TIME (PATIENT) 12.2 SEC (9.98-11.88)
--- NOTE | 2017-05-21 03:06 | HP ---
CHIEF COMPLAINT: chest pain PCP: Dr. Engle HISTORY OF PRESENT ILLNESS: 71 year old female with a history of thoracic aortic aneurysm s/p repair, cerebral aneurysm s/p clipping, diabetes, HTN, CHF, afib, previous MIs/CAD s/p stents done at [facility] on 03/26 presents to the hospital for chest pain of 4 hour duration. Patient states the pain began suddenly and without any precipitating factors. She states that the pain originally was midsternal, 8/10 in severity, non radiating, and associated with shortness of breath. She reports one episode of non-bloody, non-bilious emesis which has since resolved. Patient has had multiple admissions in the past and was seen by Dr. Browning. Received 325 asa in the ED. She reports feeling better now (on primary team examination 3 hours after initial presentation) with chest pain at a 5/10 and no more shortness of breath. Denies fevers, chills, nausea, vomiting, diarrhea. Reports a new onset rash on the R chest wall and under her breast that is pruritic. Previous echo (04/08/17) showed normal LV, normal EF, no wall motion abnormalities, mild mitral regurg. Previous EKG on 05/11 showed anterior infarct of undetermined age. ER course was notable for: (1) troponin 0.14 (2) EKG NSR possible anterior infarct indeterminate age (unchanged from prior on 05/11) (3) Recent Travel: none PAST MEDICAL HISTORY: Thoracic AA s/p repair, cerebral aneurysm s/p clipping, diabetes, HTN, CHF, paroxysmal afib, previous MIs/CAD s/p stents done at [facility] PAST SURGICAL HISTORY: brain aneurysm clipping and cardiac stents Social History: Smoking: none Alcohol: none Drugs: none Family History: mother with CAD Allergies pregabalin [From Lyrica] Allergy (Intermediate, Verified 03/15/17 14:28) budesonide [From Symbicort] Allergy (Verified 03/15/17 14:28) celecoxib [From Celebrex] Allergy (Verified 03/15/17 14:28) formoterol fumarate [From Symbicort] Allergy (Verified 03/15/17 14:28) sulfacetamide sodium [From Sulfamide] Allergy (Verified 03/15/17 14:28) HOME MEDICATIONS: Home Medications Medication Instructions Recorded Atorvastatin Ca [Lipitor] 40 mg PO HS tablet 11/12/15 Metoprolol Succinate [Toprol XL -] 50 mg PO DAILY tab.sr.24h 11/12/15 Ranitidine [Zantac -] 150 mg PO BID tablet 11/12/15 Sertraline HCl [Zoloft -] 25 mg PO DAILY tablet 11/12/15 metFORMIN HCL [Glucophage -] 500 mg PO BIDI tablet 11/12/15 Apixaban [Eliquis] 5 mg PO BID 12/22/15 Diltiazem Cd [Cardizem Cd -] 360 mg PO DAILY #60 cap.cd.24h 03/25/16 Furosemide [Lasix -] 40 mg PO DAILY 10/06/16 REVIEW OF SYSTEMS CONSTITUTIONAL: Absent: fever, chills, diaphoresis, generalized weakness, malaise, loss of appetite, weight change HEENT: Absent: rhinorrhea, nasal congestion, throat pain, throat swelling, difficulty swallowing, mouth swelling, ear pain, eye pain, visual changes CARDIOVASCULAR: chest pain Absent: , syncope, palpitations, irregular heart rate, lightheadedness, peripheral edema RESPIRATORY: shortness of breath Absent: cough, dyspnea with exertion, orthopnea, wheezing, stridor, hemoptysis GASTROINTESTINAL: Absent: abdominal pain, abdominal distension, nausea, vomiting, diarrhea, constipation, melena, hematochezia GENITOURINARY: Absent: dysuria, frequency, urgency, hesitancy, hematuria, flank pain, genital pain MUSCULOSKELETAL: Absent: myalgia, arthralgia, joint swelling, back pain, neck pain SKIN: Absent: rash, itching, pallor HEMATOLOGIC/IMMUNOLOGIC: Absent: easy bleeding, easy bruising, lymphadenopathy, frequent infections ENDOCRINE: Absent: unexplained weight gain, unexplained weight loss, heat intolerance, cold intolerance NEUROLOGIC: Absent: headache, focal weakness or paresthesias, dizziness, unsteady gait, seizure, mental status changes, bladder or bowel incontinence PSYCHIATRIC: Absent: anxiety, depression, suicidal or homicidal ideation, hallucinations. PHYSICAL EXAMINATION Vital Signs - 24 hr 05/20/17 05/20/17 23:19 23:21 Temperature 99.3 F Pulse Rate 80 Respiratory 18 Rate Blood Pressure 146/98 O2 Sat by Pulse 95 96 Oximetry (%) GENERAL: A&O x 3 EYES: PERRLA, EOMI ENT: moist mucus membranes NECK: No JVD LUNGS: CTA, no wheezes HEART: RRR no murmurs ABDOMEN: Obese, soft, nontender LOWER EXTREMITIES: 2+ pulses, 1+ peripheral edema noted on exam NEUROLOGICAL: Cranial nerves II-XII intact. 5/5 motor strength SKIN: Large erythematous and papular rash noted on R chest wall and under her breast Laboratory Results - last 24 hr 05/21/17 05/21/17 05/21/17 00:52 00:52 00:52 WBC 7.3 D RBC 4.49 Hgb 14.1 Hct 41.7 MCV 92.9 MCH 31.5 MCHC 34.0 RDW 15.6 Plt Count 205 MPV 8.1 Neutrophils % 66.6 Lymphocytes % 20.0 Monocytes % 10.9 H Eosinophils % 1.9 Basophils % 0.6 PT with INR 12.20 H INR 1.08 PTT (Actin FS) Sodium 144 Potassium 3.6 Chloride 107 Carbon Dioxide 25 Anion Gap 12 BUN 13 Creatinine 0.9 Creat Clearance w eGFR > 60 Random Glucose 125 H Calcium 8.7 Magnesium 2.3 Total Bilirubin 0.6 D AST 14 L ALT 18 Alkaline Phosphatase 60 Creatine Kinase 179 Creatine Kinase Index 0.8 CK-MB (CK-2) 1.542 Troponin I 0.14 H Total Protein 6.4 Albumin 3.2 L Lipase 05/21/17 05/21/17 00:52 00:52 WBC RBC Hgb Hct MCV MCH MCHC RDW Plt Count MPV Neutrophils % Lymphocytes % Monocytes % Eosinophils % Basophils % PT with INR INR PTT (Actin FS) 35.0 H Sodium Potassium Chloride Carbon Dioxide Anion Gap BUN Creatinine Creat Clearance w eGFR Random Glucose Calcium Magnesium Total Bilirubin AST ALT Alkaline Phosphatase Creatine Kinase Creatine Kinase Index CK-MB (CK-2) Troponin I Total Protein Albumin Lipase 121 EKG: NSR w/ sinus arrhythmia rate 64, QTc 470, septal infarct age undetermined ASSESSMENT/PLAN: 71 year old female with hx thoracic AA s/p repair, cerebral aneurysm s/p clipping, diabetes, HTN, CHF, previous MIs/CAD s/p stents presented to [facility] for chest pain suspect ACS. #Acute Coronary Syndrome: patient still complaining of chest pain, although it has improved since initial presentation -ASA 325 was given in ED, continue 81mg -Plavix 300mg once, continue 75mg daily -echo -Cardiology consult, Dr. Bridges appreciated -Admit to telemetry for monitoring -Atorvastatin 80mg HS -continue Toprol XL 50 QD -continue diltiazem 360 QD -replete potassium -will evaluate need for heparin in AM pending cards consult -NPO for now #Hypertension: blood pressure on high end -continue toprol XL 50 QD -continue lasix 40 QD -continue diltiazem 360 QD #Atrial Fibrillation: Not an acute issue, patient is in sinus rhythm and rate controlled -continue eliquis 5mg BID #Congestive Heart Failure: not an acute issue -continue lasix 40 QD, monitor for signs of hypokalemia #Diabetes Mellitus: glucose stable -patient on metformin at home -BGMs -SS insulin coverage #Hypokalemia: potassium at low end of normal -K-dur 40 meqs #Hx of Aneurysm: both cerebral and aortic, not acute issues -continue eliquis 5mg BID #Rash: appears possibly fungal in origin on R chest wall, RUQ of abdomen and under the breast -consider antifungal cream #Anxiety/Depression: stable -continue sertraline #FEN -No standing fluids -replete lytes in AM as necessary, monitor for hypokalemia -NPO for now if cath is necessary #Prophylaxis -patient is on eliquis #Disposition -admit to telemetry for cardiac monitoring Visit type - Emergency Visit Emergency Visit: Yes ED Registration Date: 05/21/17 Care time: The patient presented to the Emergency Department on the above date and was hospitalized for further evaluation of their emergent condition. - New Patient This patient is new to me today: Yes Date on this admission: 05/21/17 - Critical Care Critical Care patient: No Hospitalist Screening - Colonoscopy Questionnaire Colonoscopy Questionnaire: Colonoscopy Questionnaire - Patient: 50 - 75 years old and never had a screening colonoscopy: Unknown History of colon or rectal polyps, or CA: Unknown History of IBD, Crohn's disease or UC: Unknown History of abdominal radiation therapy as a child: Unknown - Relative: 1 with colon or rectal CA, or polyps at age 60 or younger: Unknown Colon or rectal CA diagnosed at age 45 or younger: Unknown Multiple relatives with colon or rectal CA: Unknown - Outcome: Screening Result: Negative Screen
[2017-05-21] MEDS ORDERED: CLOPIDOGREL BISULFATE 300 MG TABLET PO ONE (04:52)
[2017-05-21] MEDS ORDERED: CLOPIDOGREL BISULFATE 300 MG TABLET ONE (05:07)
[2017-05-21] MEDS ORDERED: POTASSIUM CHLORIDE TABS 20 MEQ TABLET.ER (FP) PO ONE ×4 (05:38→10:29)
--- NOTE | 2017-05-21 05:51 | PN ---
Teaching Attending Note Name of Resident: Ramses Blanton ATTENDING PHYSICIAN STATEMENT I saw and evaluated the patient. Chart, data, imaging reviewed. I reviewed the resident's note and discussed the case with the resident. I agree with the resident's findings and plan as documented. SUBJECTIVE: 71 year old female with a history of thoracic aortic aneurysm s/p repair, cerebral aneurysm s/p clipping, diabetes, HTN, CHF, afib, previous MIs/CAD s/p stents in March 2017. Now c/o chest pain which began suddenly , associated with SOB, episode of vomiting. Hx of multiple admissions for CP. Patient has had multiple admissions in the past and was seen by Dr. Browning. Denied any heavy lifting recently. Last Vital Signs Temp Pulse Resp BP Pulse Ox 99.3 F 80 18 146/98 96 05/20/17 23:19 05/20/17 23:19 05/20/17 23:19 05/20/17 23:19 05/20/17 23:21 General -NAD, AAox3 HEENT -at, nc, moist oral mucosa Neck -supple, no JVD CV -s1+S2+ rrr no murmurs chest- cta b/l, anterior chest wall tenderness appreciated abdomen- obese, BS+, soft, nt ext- no pedal edema appreciated 05/21/17 05/21/17 05/21/17 00:52 00:52 00:52 Monocytes % 10.9 H PT with INR 12.20 H PTT (Actin FS) Random Glucose 125 H AST 14 L Troponin I 0.14 H Albumin 3.2 L 05/21/17 00:52 Monocytes % PT with INR PTT (Actin FS) 35.0 H Random Glucose AST Troponin I Albumin EKG- NSR possible anterior infarct indeterminate age (unchanged from prior on 05/11) Previous echo (04/08/17) showed normal LV, normal EF, no wall motion abnormalities, mild mitral regurg. Previous EKG on 05/11 showed anterior infarct of undetermined age. ASSESSMENT AND PLAN: #Chest pain with + troponin, likely musculoskeletal and less likely ACS as pain is reproducible on pressing anterior chest. EKG does not show any acute ST- T. changes. Given loading dose of aspirin and Plavix. -admit to tele-obs -trend troponin -ASA -Plavix -statin -Bblocker -repeat EKG -transthoracic echo -cardiology evaluation #Paroxysmal Afib- now in sinus rhythm -c/w Juanis, Calcium channel juanis -c/w Eliquis #DVT ppx patient already on Eliquis See resident note for details
[2017-05-21 07:25] LABS: HEMATOCRIT 39.6 % (32.4-45.2); HEMOGLOBIN 13.4 GM/dL (10.7-15.3); MCH 31.5 pg (25.7-33.7); MEAN CELL VOLUME 92.6 fl (80-96); PLATELET COUNT 201 K/MM3 (134-434); RBC 4.27 M/mm3 (3.60-5.2); RDW 15.2 % (11.6-15.6); WHITE BLOOD COUNT 5.4 K/mm3 (4.0-10.0)
[2017-05-21] MEDS: INSULIN SLIDING SCALE (NOVOLOG) 1 VIAL SQ SCH ×4 (07:35→22:09)
[2017-05-21 07:47] LABS: ANION GAP 13 (8-16); BLOOD UREA NITROGEN 11 mg/dL (7-18); CALCIUM 8.2 mg/dL (8.5-10.1); CHLORIDE 106 mmol/L (98-107); CHOLESTEROL 207 mg/dL (50-200); CO2 24 mmol/L (21-32); CREATININE 0.8 mg/dL (0.55-1.02); GLUCOSE,RANDOM 114 mg/dL (74-106); MAGNESIUM 2.5 mg/dL (1.8-2.4); PHOSPHOROUS 3.3 mg/dL (2.5-4.9); POTASSIUM 3.3 mmol/L (3.5-5.1); SODIUM 143 mmol/L (136-145); TRIGLYCERIDES 102 mg/dL (35-160)
[2017-05-21 08:03] LABS: HDL CHOLESTEROL 45 mg/dL (40-60); LDL CHOLESTEROL (ONLY SJRH) 140 mg/dL (5-100)
--- NOTE | 2017-05-21 09:03 | CON.CARD ---
Consult Consult Specialty:: cardiology Reason for Consultation:: chest pain; hx CAD-->PCI - History of Present Illness Chief Complaint: Presetnly A&Ox3; no dyspnea; central chestpain is reproducible with palpation History of Present Illness: "The patient is a 71 year old white female brought via EMS and presenting with family, with a significant past medical history of thoracic aortic aneurysm repair, cerebral aneurysm s/p clipping, DM, HTN, CAD s/p stents (03/2017 at [facility] by Dr. Ware), morbid obesity, anxiety/depression, sedentary lifestyle, who presents to the emergency department with chest pain and shortness of breath that started 1 hour prior to presentation. She describes her chest pain as localized in the middle, ranging from mild to moderate, without radiation or modifying factors. Pt states that she was walking when the pain started but does not believe that walking made the pain worse (later, she said the pain started when she tried to sit up while still in bed) Denies pleuritic nature to pain. Denies SOB currently. The patient has been to the ED numerous times in the past 4 years, with the last 4 visits being 02/05/17, 03/15/17, 04/07/17 and 05/11/17. She reports that this current episode of chest pain is similar to her previous episodes. She notes that she had one episode of vomit, non bilious and non bloody. The patient denies headache, dizziness, fever, chills, diarrhea and constipation. Denies dysuria, frequency, urgency and hematuria. Allergies: Sulfamide, Lyrica, Symbicort and Celebrex Past surgical history: thoracic aneurysm repair Social history: No alcohol, tobacco or illicit/precription drug abuse. - History Source History Provided By: Patient, Medical Record Limitations to Obtaining History: Poor Historian - Past Medical History Cardio/Vascular: Yes: CAD, CHF, HTN, Hyperlipdemia, Other (PSVT in 2011) Pulmonary: Yes: COPD, Sleep Apnea (risks for FRANSISCA) Renal/: Yes: Renal Inusuff Psych: Yes: Anxiety Endocrine: Yes: Diabetes Mellitus Additional Medical History: Condition Date Treating Physician Comments. ASHD promus stent pLAD 2008. CHF diastolic. DM. GERD. HHD. HTN. Hyperlipidemia. Morbid obesity. Negative MIBI ST September 2011 And May 2013. SVT - Past Surgical History Past Surgical History: Yes: Stent - Alcohol/Substance Use Hx Alcohol Use: No - Smoking History Smoking history: Never smoked Have you smoked in the past 12 months: No Aproximately how many cigarettes per day: 0 If you are a former smoker, when did you quit?: 40 yrs - Social History Usual Living Arrangement: Other (with nephew; her daughter is close to her) History of Recent Travel: No Home Medications - Allergies Allergies/Adverse Reactions: Allergies Allergy/AdvReac Type Severity Reaction Status Date / Time pregabalin [From Lyrica] Allergy Intermediate Verified 03/15/17 14:28 budesonide [From Symbicort] Allergy Verified 03/15/17 14:28 celecoxib [From Celebrex] Allergy Verified 03/15/17 14:28 formoterol fumarate Allergy Verified 03/15/17 14:28 [From Symbicort] sulfacetamide sodium Allergy Verified 03/15/17 14:28 [From Sulfamide] - Home Medications Home Medications: Ambulatory Orders Atorvastatin Ca [Lipitor] 40 mg PO HS tablet 11/12/15 Metoprolol Succinate [Toprol XL -] 50 mg PO DAILY tab.sr.24h 11/12/15 Ranitidine [Zantac -] 150 mg PO BID tablet 11/12/15 Sertraline HCl [Zoloft -] 25 mg PO DAILY tablet 11/12/15 metFORMIN HCL [Glucophage -] 500 mg PO BIDI tablet 11/12/15 Apixaban [Eliquis] 5 mg PO BID 12/22/15 Diltiazem Cd [Cardizem Cd -] 360 mg PO DAILY #60 cap.cd.24h 03/25/16 Furosemide [Lasix -] 40 mg PO DAILY 10/06/16 Family Disease History - Family Disease History Family History: Denies Review of Systems - Review of Systems Constitutional: reports: Weakness Eyes: reports: No Symptoms HENT: reports: No Symptoms Vital Signs: Vital Signs Temperature 97.8 F 05/21/17 07:52 Pulse Rate 59 L 05/21/17 07:52 Respiratory Rate 16 05/21/17 07:52 Blood Pressure 139/90 05/21/17 07:52 O2 Sat by Pulse Oximetry (%) 99 05/21/17 07:52 - Other Data Labs, Other Data: CBC, BMP 05/21/17 07:09 05/21/17 07:09 INR, PTT INR 1.08 (0.82-1.09) 05/21/17 00:52 Troponin, BNP 05/21/17 05/21/17 00:52 07:09 Troponin I 0.14 H 0.13 H Troponin, BNP 05/21/17 05/21/17 00:52 07:09 Troponin I 0.14 H 0.13 H Problem List - Problems (1) Anxiety and depression Code(s): F41.8 - OTHER SPECIFIED ANXIETY DISORDERS (2) Atypical chest pain Code(s): R07.89 - OTHER CHEST PAIN (3) Morbid obesity Code(s): E66.01 - MORBID (SEVERE) OBESITY DUE TO EXCESS CALORIES (4) Pulmonary hypertension Code(s): I27.20 - PULMONARY HYPERTENSION, UNSPECIFIED (5) Diabetes Code(s): E11.9 - TYPE 2 DIABETES MELLITUS WITHOUT COMPLICATIONS Qualifiers: (6) HTN (hypertension), benign Assessment/Plan: add lisinopril (HTN; DM; hypokalemia). Code(s): I10 - ESSENTIAL (PRIMARY) HYPERTENSION (7) Hyperlipidemia Assessment/Plan: ? compliance to medication (statin); LDL 140 this admission. Agree with atorvastatin 80 mg daily; if LDL does not improve appreciably with diet, exercise, medication, would add Zetia or PKS9 inh. Code(s): E78.5 - HYPERLIPIDEMIA, UNSPECIFIED (8) Paroxysmal atrial fibrillation Assessment/Plan: on apixabain for anticoagulation. On diltiazem and metoprolol ER for HR and BP control. F/u EKG, telemetry. Code(s): I48.0 - PAROXYSMAL ATRIAL FIBRILLATION (9) Sleep apnea Code(s): G47.30 - SLEEP APNEA, UNSPECIFIED (10) Hypokalemia Assessment/Plan: replete ; f/u all electrolytes. ACEI added. Code(s): E87.6 - HYPOKALEMIA (11) Elevated troponin I level Assessment/Plan: < 0.02 two weeks ago; now 0.14. CK WNL. F/u TNI and EKG. Code(s): R74.8 - ABNORMAL LEVELS OF OTHER SERUM ENZYMES (12) History of heart artery stent Assessment/Plan: DE Stent placed 03/2017 after + stress MIBI; f/u report. Pt to see interventionalist (DR. Ware) 05/25/17. Continue ASA and clopidogredl. Statin. On Metoprolol and diltiazem; statin. Code(s): Z95.5 - PRESENCE OF CORONARY ANGIOPLASTY IMPLANT AND GRAFT
[2017-05-21] MEDS ORDERED: ASPIRIN 81 MG CHEWABLE TABLETS ONE (09:11)
[2017-05-21] MEDS ORDERED: PANTOPRAZOLE 40 MG TABLET (FP) ONE (09:11)
[2017-05-21] MEDS ORDERED: VALSARTAN 80 MG TABLET (UD) ONE (09:12)
[2017-05-21] MEDS: CLOPIDOGREL BISULFATE 75 MG TABLET (FP) PO SCH (10:35)
[2017-05-21] MEDS: FUROSEMIDE 20 MG TABLET (FP) PO SCH (10:35)
[2017-05-21] MEDS: APIXABAN 5 MG TABLET PO SCH ×2 (10:35→22:07)
[2017-05-21] MEDS: RANITIDINE HCL 150 MG TABLET (FP) PO SCH ×2 (10:35→22:07)
[2017-05-21] MEDS: SERTRALINE HCL 25 MG TABLET (FP) PO SCH (10:35)
[2017-05-21] MEDS: ASPIRIN COATED 81 MG TABLET.EC PO SCH (10:35)
--- NOTE | 2017-05-21 12:40 | EKG ---
Test Reason : Blood Pressure : / mmHG Vent. Rate : 060 BPM Atrial Rate : 060 BPM P-R Int : 156 ms QRS Dur : 076 ms QT Int : 446 ms P-R-T Axes : 044 -17 000 degrees QTc Int : 446 ms NORMAL SINUS RHYTHM SEPTAL INFARCT (CITED ON OR BEFORE 23-MAR-2016) ABNORMAL ECG WHEN COMPARED WITH ECG OF 21-MAY-2017 02:33, NO SIGNIFICANT CHANGE WAS FOUND Confirmed by ROSANA DAVIS, AL ([id number]) on 05/21/2017 12:39:47 PM Referred By: Confirmed By:AL WAYNE MD
--- NOTE | 2017-05-21 16:39 | EKG ---
Test Reason : Blood Pressure : / mmHG Vent. Rate : 064 BPM Atrial Rate : 064 BPM P-R Int : 158 ms QRS Dur : 082 ms QT Int : 456 ms P-R-T Axes : 048 -13 -19 degrees QTc Int : 470 ms NORMAL SINUS RHYTHM WITH SINUS ARRHYTHMIA SEPTAL INFARCT (CITED ON OR BEFORE 23-MAR-2016) ABNORMAL ECG WHEN COMPARED WITH ECG OF 20-MAY-2017 23:14, NO SIGNIFICANT CHANGE WAS FOUND Confirmed by AL WAYNE MD ([id number]) on 05/21/2017 4:38:59 PM Referred By: Confirmed By:AL WAYNE MD
--- NOTE | 2017-05-21 16:39 | EKG ---
Test Reason : Blood Pressure : / mmHG Vent. Rate : 070 BPM Atrial Rate : 070 BPM P-R Int : 168 ms QRS Dur : 084 ms QT Int : 424 ms P-R-T Axes : 047 -25 000 degrees QTc Int : 457 ms NORMAL SINUS RHYTHM POSSIBLE ANTERIOR INFARCT (CITED ON OR BEFORE 23-MAR-2016) ABNORMAL ECG WHEN COMPARED WITH ECG OF 11-MAY-2017 15:03, NO SIGNIFICANT CHANGE WAS FOUND Confirmed by ROSANA DAVIS, AL ([id number]) on 05/21/2017 4:39:22 PM Referred By: Confirmed By:AL WAYNE MD
--- NOTE | 2017-05-21 18:19 | PN ---
Progress Note, Physician History of Present Illness: feeling good no cp - Current Medication List Current Medications: Active Medications Apixaban (Eliquis -) 5 mg PO BID [facility] Last Admin: 05/21/17 10:35 Dose: 5 mg Aspirin (Ecotrin -) 81 mg PO DAILY [facility] Last Admin: 05/21/17 10:35 Dose: 81 mg Atorvastatin Calcium (Lipitor -) 80 mg PO [facility] Clopidogrel Bisulfate (Plavix -) 75 mg PO DAILY [facility] Last Admin: 05/21/17 10:35 Dose: 75 mg Diltiazem HCl (Cardizem Cd -) 360 mg PO DAILY [facility] Last Admin: 05/21/17 10:35 Dose: 360 mg Furosemide (Lasix -) 40 mg PO DAILY [facility] Last Admin: 05/21/17 10:35 Dose: 40 mg Insulin Aspart (Novolog Vial Sliding Scale -) 0 vial SQ ACHS [facility] PRN Reason: Protocol Last Admin: 05/21/17 17:28 Dose: Not Given Metoprolol Succinate (Toprol Xl -) 50 mg PO DAILY [facility] Last Admin: 05/21/17 10:35 Dose: 50 mg Ranitidine HCl (Zantac -) 150 mg PO BID [facility] Last Admin: 05/21/17 10:35 Dose: 150 mg Sertraline HCl (Zoloft -) 25 mg PO DAILY [facility] Last Admin: 05/21/17 10:35 Dose: 25 mg - Objective Vital Signs: Vital Signs Temperature 97.8 F 05/21/17 15:25 Pulse Rate 70 05/21/17 15:25 Respiratory Rate 16 05/21/17 15:25 Blood Pressure 128/84 05/21/17 15:25 O2 Sat by Pulse Oximetry (%) 95 05/21/17 15:25 Constitutional: Yes: No Distress HENT: Yes: Atraumatic Neck: Yes: Supple Cardiovascular: Yes: Regular Rate and Rhythm Respiratory: Yes: CTA Bilaterally Gastrointestinal: Yes: Normal Bowel Sounds Extremities: Yes: WNL Neurological: Yes: Alert, Oriented Labs: CBC, BMP 05/21/17 07:09 05/21/17 07:09 INR, PTT INR 1.08 (0.82-1.09) 05/21/17 00:52 Problem List - Problems (1) Chest pain Assessment/Plan: resolved troponin now normal Code(s): R07.9 - CHEST PAIN, UNSPECIFIED (2) Elevated troponin I level Assessment/Plan: trended down Code(s): R74.8 - ABNORMAL LEVELS OF OTHER SERUM ENZYMES (3) Morbid obesity Code(s): E66.01 - MORBID (SEVERE) OBESITY DUE TO EXCESS CALORIES (4) Diabetes Assessment/Plan: on insulin po meds bgms Code(s): E11.9 - TYPE 2 DIABETES MELLITUS WITHOUT COMPLICATIONS Qualifiers: (5) Hyperlipidemia Assessment/Plan: on med Code(s): E78.5 - HYPERLIPIDEMIA, UNSPECIFIED (6) Paroxysmal atrial fibrillation Assessment/Plan: on eliquis Code(s): I48.0 - PAROXYSMAL ATRIAL FIBRILLATION
[2017-05-21] MEDS ORDERED: INSULIN (NOVOLOG) ASPART 100 UNITS/ML 10ML VIAL ONE (21:54)
[2017-05-21] MEDS: NYSTATIN POWDER 100,000 UNITS/GM - 15 GM TOPICAL POWDER TP SCH (22:06)
[2017-05-21] MEDS: ATORVASTATIN CA 80 MG TABLET (FP) PO SCH (22:07)
[2017-05-22] MEDS: metFORMIN HCL 500 MG TABLET (FP) PO SCH ×2 (06:40→17:15)
[2017-05-22] MEDS: INSULIN SLIDING SCALE (NOVOLOG) 1 VIAL SQ SCH ×4 (06:41→21:09)
[2017-05-22] MEDS ORDERED: PT OWN MED DRAWER 7, Y5N ONE (09:20)
[2017-05-22] MEDS: CLOPIDOGREL BISULFATE 75 MG TABLET (FP) PO SCH (09:29)
[2017-05-22] MEDS: FUROSEMIDE 20 MG TABLET (FP) PO SCH (09:29)
[2017-05-22] MEDS: SERTRALINE HCL 25 MG TABLET (FP) PO SCH (09:29)
[2017-05-22] MEDS: APIXABAN 5 MG TABLET PO SCH ×2 (09:30→21:09)
[2017-05-22] MEDS: RANITIDINE HCL 150 MG TABLET (FP) PO SCH ×2 (09:30→21:09)
[2017-05-22] MEDS: ASPIRIN COATED 81 MG TABLET.EC PO SCH (09:31)
[2017-05-22] MEDS: LISINOPRIL 5 MG TABLET (FP) PO SCH (09:31)
[2017-05-22] MEDS: NYSTATIN POWDER 100,000 UNITS/GM - 15 GM TOPICAL POWDER TP SCH (09:31)
[2017-05-22] MEDS ORDERED: ACETAMINOPHEN 325 MG TABLET (FP) PO PRN (14:48)
--- NOTE | 2017-05-22 16:53 | PN ---
Progress Note, Physician History of Present Illness: The patient is a 71 year old white female brought via EMS and presenting with family, with a significant past medical history of thoracic aortic aneurysm repair, cerebral aneurysm s/p clipping, DM, HTN, CAD s/p stents (03/2017 at [facility] by Dr. Ware), morbid obesity, anxiety/depression, sedentary lifestyle, who presents to the emergency department with chest pain and shortness of breath that started 1 hour prior to presentation. She describes her chest pain as localized in the middle, ranging from mild to moderate, without radiation or modifying factors. Pt states that she was walking when the pain started but does not believe that walking made the pain worse (later, she said the pain started when she tried to sit up while still in bed) Denies pleuritic nature to pain. Denies SOB currently. The patient has been to the ED numerous times in the past 4 years, with the last 4 visits being 02/05/17, 03/15/17, 04/07/17 and 05/11/17. She reports that this current episode of chest pain is similar to her previous episodes. She notes that she had one episode of vomit, non bilious and non bloody. The patient denies headache, dizziness, fever, chills, diarrhea and constipation. Denies dysuria, frequency, urgency and hematuria. - Current Medication List Current Medications: Active Medications Acetaminophen (Tylenol -) 650 mg PO Q6H PRN PRN Reason: FEVER Last Admin: 05/22/17 14:57 Dose: 650 mg Apixaban (Eliquis -) 5 mg PO BID [facility] Last Admin: 05/22/17 09:30 Dose: 5 mg Aspirin (Ecotrin -) 81 mg PO DAILY [facility] Last Admin: 05/22/17 09:31 Dose: 81 mg Atorvastatin Calcium (Lipitor -) 80 mg PO HS [facility] Last Admin: 05/21/17 22:07 Dose: 80 mg Clopidogrel Bisulfate (Plavix -) 75 mg PO DAILY [facility] Last Admin: 05/22/17 09:29 Dose: 75 mg Diltiazem HCl (Cardizem Cd -) 360 mg PO DAILY [facility] Last Admin: 05/22/17 09:29 Dose: 360 mg Furosemide (Lasix -) 40 mg PO DAILY [facility] Last Admin: 05/22/17 09:29 Dose: 40 mg Insulin Aspart (Novolog Vial Sliding Scale -) 0 vial SQ ACHS [facility] PRN Reason: Protocol Last Admin: 05/22/17 12:11 Dose: Not Given Lisinopril (Prinivil) 2.5 mg PO DAILY [facility] Last Admin: 05/22/17 09:31 Dose: 2.5 mg Metformin HCl (Glucophage -) 500 mg PO BIDI [facility] Last Admin: 05/22/17 06:40 Dose: 500 mg Metoprolol Succinate (Toprol Xl -) 50 mg PO DAILY [facility] Last Admin: 05/22/17 09:30 Dose: 50 mg Nystatin (Nystop Powder -) 1 applic TP DAILY [facility] Last Admin: 05/22/17 09:31 Dose: 1 applic Ranitidine HCl (Zantac -) 150 mg PO BID [facility] Last Admin: 05/22/17 09:30 Dose: 150 mg Sertraline HCl (Zoloft -) 25 mg PO DAILY [facility] Last Admin: 05/22/17 09:29 Dose: 25 mg - Objective Vital Signs: Vital Signs Temperature 98.3 F 05/22/17 14:00 Pulse Rate 60 05/22/17 14:00 Respiratory Rate 20 05/22/17 14:00 Blood Pressure 148/51 05/22/17 14:00 O2 Sat by Pulse Oximetry (%) 94 L 05/22/17 10:00 Eyes: Yes: WNL, Conjunctiva Clear, EOM Intact HENT: Yes: WNL, Atraumatic, Normocephalic Neck: Yes: WNL, Supple, Trachea Midline Cardiovascular: Yes: WNL, Regular Rate and Rhythm Respiratory: Yes: WNL, Regular, CTA Bilaterally Gastrointestinal: Yes: WNL, Normal Bowel Sounds Genitourinary: Yes: WNL Musculoskeletal: Yes: WNL Extremities: Yes: WNL Edema: No Integumentary: Yes: WNL Neurological: Yes: WNL, Alert, Oriented ...Motor Strength: WNL Psychiatric: Yes: WNL Labs: CBC, BMP 05/21/17 07:09 05/21/17 07:09 INR, PTT INR 1.08 (0.82-1.09) 05/21/17 00:52 Laboratory Tests 05/21/17 05/21/17 05/21/17 00:52 00:52 00:52 WBC 7.3 D RBC 4.49 Hgb 14.1 Hct 41.7 MCV 92.9 MCH 31.5 MCHC 34.0 RDW 15.6 Plt Count 205 MPV 8.1 Neutrophils % 66.6 Lymphocytes % 20.0 Monocytes % 10.9 H Eosinophils % 1.9 Basophils % 0.6 PT with INR 12.20 H INR 1.08 PTT (Actin FS) Sodium 144 Potassium 3.6 Chloride 107 Carbon Dioxide 25 Anion Gap 12 BUN 13 Creatinine 0.9 Creat Clearance w eGFR > 60 POC Glucometer Random Glucose 125 H Calcium 8.7 Phosphorus Magnesium 2.3 Total Bilirubin 0.6 D AST 14 L ALT 18 Alkaline Phosphatase 60 Creatine Kinase 179 Creatine Kinase Index 0.8 CK-MB (CK-2) 1.542 Troponin I 0.14 H Total Protein 6.4 Albumin 3.2 L Triglycerides Cholesterol Total LDL Cholesterol HDL Cholesterol Lipase 05/21/17 05/21/17 05/21/17 00:52 00:52 07:09 WBC 5.4 RBC 4.27 Hgb 13.4 Hct 39.6 MCV 92.6 MCH 31.5 MCHC 34.0 RDW 15.2 Plt Count 201 MPV 8.0 Neutrophils % Lymphocytes % Monocytes % Eosinophils % Basophils % PT with INR INR PTT (Actin FS) 35.0 H Sodium Potassium Chloride Carbon Dioxide Anion Gap BUN Creatinine Creat Clearance w eGFR POC Glucometer Random Glucose Calcium Phosphorus Magnesium Total Bilirubin AST ALT Alkaline Phosphatase Creatine Kinase Creatine Kinase Index CK-MB (CK-2) Troponin I Total Protein Albumin Triglycerides Cholesterol Total LDL Cholesterol HDL Cholesterol Lipase 121 05/21/17 05/21/17 05/21/17 07:09 07:09 07:30 WBC RBC Hgb Hct MCV MCH MCHC RDW Plt Count MPV Neutrophils % Lymphocytes % Monocytes % Eosinophils % Basophils % PT with INR INR PTT (Actin FS) Sodium 143 Potassium 3.3 L Chloride 106 Carbon Dioxide 24 Anion Gap 13 BUN 11 Creatinine 0.8 Creat Clearance w eGFR POC Glucometer 140.47503 Random Glucose 114 H Calcium 8.2 L Phosphorus 3.3 Magnesium 2.5 H Total Bilirubin AST ALT Alkaline Phosphatase Creatine Kinase 143 Creatine Kinase Index CK-MB (CK-2) Troponin I 0.13 H Total Protein Albumin Triglycerides 102 Cholesterol 207 H Total LDL Cholesterol 140 H HDL Cholesterol 45 Lipase 05/21/17 05/21/17 05/21/17 12:03 16:50 17:27 WBC RBC Hgb Hct MCV MCH MCHC RDW Plt Count MPV Neutrophils % Lymphocytes % Monocytes % Eosinophils % Basophils % PT with INR INR PTT (Actin FS) Sodium Potassium Chloride Carbon Dioxide Anion Gap BUN Creatinine Creat Clearance w eGFR POC Glucometer 130.68717 136 Random Glucose Calcium Phosphorus Magnesium Total Bilirubin AST ALT Alkaline Phosphatase Creatine Kinase 154 Creatine Kinase Index 0.7 CK-MB (CK-2) 1.184 Troponin I 0.04 Total Protein Albumin Triglycerides Cholesterol Total LDL Cholesterol HDL Cholesterol Lipase 05/21/17 05/22/17 05/22/17 22:08 06:41 11:59 WBC RBC Hgb Hct MCV MCH MCHC RDW Plt Count MPV Neutrophils % Lymphocytes % Monocytes % Eosinophils % Basophils % PT with INR INR PTT (Actin FS) Sodium Potassium Chloride Carbon Dioxide Anion Gap BUN Creatinine Creat Clearance w eGFR POC Glucometer 132 181 133 Random Glucose Calcium Phosphorus Magnesium Total Bilirubin AST ALT Alkaline Phosphatase Creatine Kinase Creatine Kinase Index CK-MB (CK-2) Troponin I Total Protein Albumin Triglycerides Cholesterol Total LDL Cholesterol HDL Cholesterol Lipase 05/22/17 16:17 WBC RBC Hgb Hct MCV MCH MCHC RDW Plt Count MPV Neutrophils % Lymphocytes % Monocytes % Eosinophils % Basophils % PT with INR INR PTT (Actin FS) Sodium Potassium Chloride Carbon Dioxide Anion Gap BUN Creatinine Creat Clearance w eGFR POC Glucometer 179 Random Glucose Calcium Phosphorus Magnesium Total Bilirubin AST ALT Alkaline Phosphatase Creatine Kinase Creatine Kinase Index CK-MB (CK-2) Troponin I Total Protein Albumin Triglycerides Cholesterol Total LDL Cholesterol HDL Cholesterol Lipase Assessment/Plan - Problems (1) Anxiety and depression Code(s): F41.8 - OTHER SPECIFIED ANXIETY DISORDERS (2) Atypical chest pain Code(s): R07.89 - OTHER CHEST PAIN (3) Morbid obesity Code(s): E66.01 - MORBID (SEVERE) OBESITY DUE TO EXCESS CALORIES (4) Pulmonary hypertension Code(s): I27.20 - PULMONARY HYPERTENSION, UNSPECIFIED (5) Diabetes Code(s): E11.9 - TYPE 2 DIABETES MELLITUS WITHOUT COMPLICATIONS Qualifiers: (6) HTN (hypertension), benign Assessment/Plan: add lisinopril (HTN; DM; hypokalemia). Code(s): I10 - ESSENTIAL (PRIMARY) HYPERTENSION (7) Hyperlipidemia Assessment/Plan: ? compliance to medication (statin); LDL 140 this admission. Agree with atorvastatin 80 mg daily; if LDL does not improve appreciably with diet, exercise, medication, would add Zetia or PKS9 inh. Code(s): E78.5 - HYPERLIPIDEMIA, UNSPECIFIED (8) Paroxysmal atrial fibrillation Assessment/Plan: on apixabain for anticoagulation. On diltiazem and metoprolol ER for HR and BP control. F/u EKG, telemetry. Code(s): I48.0 - PAROXYSMAL ATRIAL FIBRILLATION (9) Sleep apnea Code(s): G47.30 - SLEEP APNEA, UNSPECIFIED (10) Hypokalemia Assessment/Plan: replete ; f/u all electrolytes. ACEI added. Code(s): E87.6 - HYPOKALEMIA (11) Elevated troponin I level Assessment/Plan: < 0.02 two weeks ago; now 0.14. CK WNL. F/u TNI and EKG. Code(s): R74.8 - ABNORMAL LEVELS OF OTHER SERUM ENZYMES (12) History of heart artery stent Assessment/Plan: [place] Stent placed 03/2017 after + stress MIBI; f/u report. Pt to see interventionalist (DR. Ware) 05/25/17. Continue ASA and clopidogredl. Statin. On Metoprolol and diltiazem; statin. Code(s): Z95.5 - PRESENCE OF CORONARY ANGIOPLASTY IMPLANT AND GRAFT ongoing cp will consider c. cath next week
--- NOTE | 2017-05-22 18:53 | PN ---
Progress Note, Physician History of Present Illness: gets chest pain when moves...got better with tylenol - Current Medication List Current Medications: Active Medications Acetaminophen (Tylenol -) 650 mg PO Q6H PRN PRN Reason: FEVER Last Admin: 05/22/17 14:57 Dose: 650 mg Apixaban (Eliquis -) 5 mg PO BID [facility] Last Admin: 05/22/17 09:30 Dose: 5 mg Aspirin (Ecotrin -) 81 mg PO DAILY [facility] Last Admin: 05/22/17 09:31 Dose: 81 mg Atorvastatin Calcium (Lipitor -) 80 mg PO HS [facility] Last Admin: 05/21/17 22:07 Dose: 80 mg Clopidogrel Bisulfate (Plavix -) 75 mg PO DAILY [facility] Last Admin: 05/22/17 09:29 Dose: 75 mg Diltiazem HCl (Cardizem Cd -) 360 mg PO DAILY [facility] Last Admin: 05/22/17 09:29 Dose: 360 mg Furosemide (Lasix -) 40 mg PO DAILY [facility] Last Admin: 05/22/17 09:29 Dose: 40 mg Insulin Aspart (Novolog Vial Sliding Scale -) 0 vial SQ ACHS [facility] PRN Reason: Protocol Last Admin: 05/22/17 17:15 Dose: 2 units Lisinopril (Prinivil) 2.5 mg PO DAILY [facility] Last Admin: 05/22/17 09:31 Dose: 2.5 mg Metformin HCl (Glucophage -) 500 mg PO BIDI [facility] Last Admin: 05/22/17 17:15 Dose: 500 mg Metoprolol Succinate (Toprol Xl -) 50 mg PO DAILY [facility] Last Admin: 05/22/17 09:30 Dose: 50 mg Nystatin (Nystop Powder -) 1 applic TP DAILY [facility] Last Admin: 05/22/17 09:31 Dose: 1 applic Ranitidine HCl (Zantac -) 150 mg PO BID [facility] Last Admin: 05/22/17 09:30 Dose: 150 mg Sertraline HCl (Zoloft -) 25 mg PO DAILY [facility] Last Admin: 05/22/17 09:29 Dose: 25 mg - Objective Vital Signs: Vital Signs Temperature 98.3 F 05/22/17 14:00 Pulse Rate 60 05/22/17 14:00 Respiratory Rate 20 05/22/17 14:00 Blood Pressure 148/51 05/22/17 14:00 O2 Sat by Pulse Oximetry (%) 94 L 05/22/17 10:00 Constitutional: Yes: No Distress HENT: Yes: Atraumatic Neck: Yes: Supple Cardiovascular: Yes: Regular Rate and Rhythm Respiratory: Yes: CTA Bilaterally Gastrointestinal: Yes: Normal Bowel Sounds Extremities: Yes: WNL Neurological: Yes: Alert, Oriented Labs: CBC, BMP 05/21/17 07:09 05/21/17 07:09 INR, PTT INR 1.08 (0.82-1.09) 05/21/17 00:52 Problem List - Problems (1) Chest pain Assessment/Plan: resolved troponin now normal i think she gets musculoskeletal pain, gets better by tylenol Code(s): R07.9 - CHEST PAIN, UNSPECIFIED (2) Elevated troponin I level Assessment/Plan: trended down Code(s): R74.8 - ABNORMAL LEVELS OF OTHER SERUM ENZYMES (3) Morbid obesity Code(s): E66.01 - MORBID (SEVERE) OBESITY DUE TO EXCESS CALORIES (4) Diabetes Assessment/Plan: on insulin po meds bgms Code(s): E11.9 - TYPE 2 DIABETES MELLITUS WITHOUT COMPLICATIONS Qualifiers: (5) Hyperlipidemia Assessment/Plan: on med Code(s): E78.5 - HYPERLIPIDEMIA, UNSPECIFIED (6) Paroxysmal atrial fibrillation Assessment/Plan: on eliquis Code(s): I48.0 - PAROXYSMAL ATRIAL FIBRILLATION
[2017-05-22] MEDS: ATORVASTATIN CA 80 MG TABLET (FP) PO SCH (21:10)
[2017-05-23] MEDS: INSULIN SLIDING SCALE (NOVOLOG) 1 VIAL SQ SCH ×4 (06:08→21:55)
[2017-05-23] MEDS: metFORMIN HCL 500 MG TABLET (FP) PO SCH ×2 (06:37→16:53)
[2017-05-23] MEDS: LISINOPRIL 5 MG TABLET (FP) PO SCH (09:29)
[2017-05-23] MEDS: SERTRALINE HCL 25 MG TABLET (FP) PO SCH (09:29)
[2017-05-23] MEDS: RANITIDINE HCL 150 MG TABLET (FP) PO SCH ×2 (09:30→21:55)
[2017-05-23] MEDS: FUROSEMIDE 20 MG TABLET (FP) PO SCH (09:30)
[2017-05-23] MEDS: APIXABAN 5 MG TABLET PO SCH ×2 (09:30→21:55)
[2017-05-23] MEDS: CLOPIDOGREL BISULFATE 75 MG TABLET (FP) PO SCH (09:30)
[2017-05-23] MEDS: ASPIRIN COATED 81 MG TABLET.EC PO SCH (09:30)
[2017-05-23] MEDS: NYSTATIN POWDER 100,000 UNITS/GM - 15 GM TOPICAL POWDER TP SCH (09:31)
--- NOTE | 2017-05-23 09:59 | PN ---
Progress Note, Physician Chief Complaint: Pt A&Ox3; OOB in chair; still with periods of central chest pressure (mderate severity) at rest that may last for several minutes. History of Present Illness: "The patient is a 71 year old white female brought via EMS and presenting with family, with a significant past medical history of thoracic aortic aneurysm repair, cerebral aneurysm s/p clipping, DM, HTN, CAD s/p stents (03/2017 at [facility] by Dr. Ware), morbid obesity, anxiety/depression, sedentary lifestyle, who presents to the emergency department with chest pain and shortness of breath that started 1 hour prior to presentation. She describes her chest pain as localized in the middle, ranging from mild to moderate, without radiation or modifying factors. Pt states that she was walking when the pain started but does not believe that walking made the pain worse (later, she said the pain started when she tried to sit up while still in bed) Denies pleuritic nature to pain. Denies SOB currently. The patient has been to the ED numerous times in the past 4 years, with the last 4 visits being 02/05/17, 03/15/17, 04/07/17 and 05/11/17. She reports that this current episode of chest pain is similar to her previous episodes. She notes that she had one episode of vomit, non bilious and non bloody. The patient denies headache, dizziness, fever, chills, diarrhea and constipation. Denies dysuria, frequency, urgency and hematuria. Allergies: Sulfamide, Lyrica, Symbicort and Celebrex Past surgical history: thoracic aneurysm repair Social history: No alcohol, tobacco or illicit/precription drug abuse. - Current Medication List Current Medications: Active Medications Acetaminophen (Tylenol -) 650 mg PO Q6H PRN PRN Reason: FEVER Last Admin: 05/22/17 14:57 Dose: 650 mg Apixaban (Eliquis -) 5 mg PO BID [facility] Last Admin: 05/23/17 09:30 Dose: 5 mg Aspirin (Ecotrin -) 81 mg PO DAILY [facility] Last Admin: 05/23/17 09:30 Dose: 81 mg Atorvastatin Calcium (Lipitor -) 80 mg PO HS [facility] Last Admin: 05/22/17 21:10 Dose: 80 mg Clopidogrel Bisulfate (Plavix -) 75 mg PO DAILY [facility] Last Admin: 05/23/17 09:30 Dose: 75 mg Diltiazem HCl (Cardizem Cd -) 360 mg PO DAILY [facility] Last Admin: 05/23/17 09:30 Dose: 360 mg Furosemide (Lasix -) 40 mg PO DAILY [facility] Last Admin: 05/23/17 09:30 Dose: 40 mg Insulin Aspart (Novolog Vial Sliding Scale -) 0 vial SQ ACHS [facility] PRN Reason: Protocol Last Admin: 05/23/17 06:08 Dose: Not Given Lisinopril (Prinivil) 2.5 mg PO DAILY [facility] Last Admin: 05/23/17 09:29 Dose: 2.5 mg Metformin HCl (Glucophage -) 500 mg PO BIDI [facility] Last Admin: 05/23/17 06:37 Dose: 500 mg Metoprolol Succinate (Toprol Xl -) 50 mg PO DAILY [facility] Last Admin: 05/23/17 09:30 Dose: 50 mg Nystatin (Nystop Powder -) 1 applic TP DAILY [facility] Last Admin: 05/23/17 09:31 Dose: 1 applic Ranitidine HCl (Zantac -) 150 mg PO BID [facility] Last Admin: 05/23/17 09:30 Dose: 150 mg Sertraline HCl (Zoloft -) 25 mg PO DAILY [facility] Last Admin: 05/23/17 09:29 Dose: 25 mg - Objective Vital Signs: Vital Signs Temperature 98.2 F 05/23/17 09:14 Pulse Rate 69 05/23/17 09:14 Respiratory Rate 18 05/23/17 09:14 Blood Pressure 152/87 05/23/17 09:14 O2 Sat by Pulse Oximetry (%) 94 L 05/23/17 02:00 Constitutional: Yes: Calm, Obese Eyes: Yes: WNL HENT: Yes: WNL Respiratory: Yes: Diminished Gastrointestinal: Yes: Soft, Abdomen, Obese ...Rectal Exam: Yes: Deferred Genitourinary: No: Anuria Breast(s): Yes: WNL Musculoskeletal: Yes: Joint Stiffness, Muscle Weakness Extremities: Yes: Cool Edema: No Peripheral Pulses WNL: Yes Integumentary: Yes: WNL Neurological: Yes: WNL Psychiatric: Yes: Other (anxiety/depression) Labs: CBC, BMP 05/21/17 07:09 05/21/17 07:09 INR, PTT INR 1.08 (0.82-1.09) 05/21/17 00:52 - ....Imaging Ultrasound: Image Reviewed (ECHO: normal LVEF; grossly normal RVEF; trace TR) Other: Image Reviewed (telemetry: NSR: frequent PVCs) Problem List - Problems (1) Anxiety and depression Code(s): F41.8 - OTHER SPECIFIED ANXIETY DISORDERS (2) Atypical chest pain Assessment/Plan: TNI mildly elevated (below [place] levels). Code(s): R07.89 - OTHER CHEST PAIN (3) Morbid obesity Code(s): E66.01 - MORBID (SEVERE) OBESITY DUE TO EXCESS CALORIES (4) Diabetes Code(s): E11.9 - TYPE 2 DIABETES MELLITUS WITHOUT COMPLICATIONS Qualifiers: (5) HTN (hypertension), benign Code(s): I10 - ESSENTIAL (PRIMARY) HYPERTENSION (6) Hyperlipidemia Code(s): E78.5 - HYPERLIPIDEMIA, UNSPECIFIED (7) Paroxysmal atrial fibrillation Assessment/Plan: on apixabain for anticoagulation. On diltiazem and metoprolol ER for HR and BP control. F/u EKG, telemetry. Code(s): I48.0 - PAROXYSMAL ATRIAL FIBRILLATION (8) Sleep apnea Assessment/Plan: sleep studies. Code(s): G47.30 - SLEEP APNEA, UNSPECIFIED (9) Hypokalemia Assessment/Plan: replete ; f/u all electrolytes. ACEI added. Code(s): E87.6 - HYPOKALEMIA (10) Elevated troponin I level Assessment/Plan: < 0.02 two weeks ago; now 0.14. CK WNL. F/u TNI and EKG. Code(s): R74.8 - ABNORMAL LEVELS OF OTHER SERUM ENZYMES (11) History of heart artery stent Assessment/Plan: [place] Stent placed 03/2017 after + stress MIBI; multivessel CAD. Continued chest pressure at rest. Mildly elevated TNI. Off apixaban after tonight; change tgo IV heparin in preparation for coronary angiogram. Code(s): Z95.5 - PRESENCE OF CORONARY ANGIOPLASTY IMPLANT AND GRAFT
[2017-05-23] MEDS ORDERED: HEPARIN NA (PORCINE) 5,000 UNITS/ML 1ML VIAL IVPUSH PRN ×2 (12:59)
--- NOTE | 2017-05-23 13:34 | DS ---
Physical Examination Vital Signs: Vital Signs Temperature 98.2 F 05/23/17 09:14 Pulse Rate 69 05/23/17 09:14 Respiratory Rate 18 05/23/17 09:14 Blood Pressure 152/87 05/23/17 09:14 O2 Sat by Pulse Oximetry (%) 94 L 05/23/17 02:00 Labs: CBC, BMP 05/21/17 07:09 05/21/17 07:09 Discharge Summary Reason For Visit: CHEST PAIN Current Active Problems Chest pain (Acute) Elevated troponin I level (Acute) History of heart artery stent (Acute) Hypokalemia (Acute) - Instructions Referrals: Yamilet Engle MD [Primary Care Provider] - - Home Medications Comprehensive Discharge Medication List: Ambulatory Orders Atorvastatin Ca [Lipitor] 40 mg PO HS tablet 11/12/15 Metoprolol Succinate [Toprol XL -] 50 mg PO DAILY tab.sr.24h 11/12/15 Ranitidine [Zantac -] 150 mg PO BID tablet 11/12/15 Sertraline HCl [Zoloft -] 25 mg PO DAILY tablet 11/12/15 metFORMIN HCL [Glucophage -] 500 mg PO BIDI tablet 11/12/15 Apixaban [Eliquis] 5 mg PO BID 12/22/15 Diltiazem Cd [Cardizem Cd -] 360 mg PO DAILY #60 cap.cd.24h 03/25/16 Furosemide [Lasix -] 40 mg PO DAILY 10/06/16 Aspirin Coated [Ecotrin -] 81 mg PO DAILY tablet.ec 05/22/17 Clopidogrel Bisulfate [Plavix -] 75 mg PO DAILY #30 tablet 05/22/17 Nystatin Powder [Nystop Powder -] 1 applic TP DAILY #1 applic 05/22/17
--- NOTE | 2017-05-23 13:43 | PN ---
Progress Note, Physician History of Present Illness: comfortable - Current Medication List Current Medications: Active Medications Acetaminophen (Tylenol -) 650 mg PO Q6H PRN PRN Reason: FEVER Last Admin: 05/22/17 14:57 Dose: 650 mg Apixaban (Eliquis -) 5 mg PO BID [facility] Last Admin: 05/23/17 09:30 Dose: 5 mg Aspirin (Ecotrin -) 81 mg PO DAILY [facility] Last Admin: 05/23/17 09:30 Dose: 81 mg Atorvastatin Calcium (Lipitor -) 80 mg PO HS [facility] Last Admin: 05/22/17 21:10 Dose: 80 mg Clopidogrel Bisulfate (Plavix -) 75 mg PO DAILY [facility] Last Admin: 05/23/17 09:30 Dose: 75 mg Diltiazem HCl (Cardizem Cd -) 360 mg PO DAILY [facility] Last Admin: 05/23/17 09:30 Dose: 360 mg Furosemide (Lasix -) 40 mg PO DAILY [facility] Last Admin: 05/23/17 09:30 Dose: 40 mg Heparin Sodium (Porcine) (Heparin -) 1,000 unit IVPUSH PRN PRN PRN Reason: Heparin Heparin Sodium (Porcine) (Heparin -) 5,000 unit IVPUSH PRN PRN PRN Reason: Heparin HEPARIN SOD,PORK IN 0.45% NACL (Heparin-1/2ns 25,000 Units/500) 25,000 units in 500 mls @ 20 mls/hr IVPB TITR [facility]; 1,000 UNITS/HR PRN Reason: Protocol Insulin Aspart (Novolog Vial Sliding Scale -) 0 vial SQ ACHS [facility] PRN Reason: Protocol Last Admin: 05/23/17 11:58 Dose: Not Given Lisinopril (Prinivil) 2.5 mg PO DAILY [facility] Last Admin: 05/23/17 09:29 Dose: 2.5 mg Metformin HCl (Glucophage -) 500 mg PO BIDI [facility] Last Admin: 05/23/17 06:37 Dose: 500 mg Metoprolol Succinate (Toprol Xl -) 50 mg PO DAILY [facility] Last Admin: 05/23/17 09:30 Dose: 50 mg Nystatin (Nystop Powder -) 1 applic TP DAILY [facility] Last Admin: 05/23/17 09:31 Dose: 1 applic Ranitidine HCl (Zantac -) 150 mg PO BID [facility] Last Admin: 05/23/17 09:30 Dose: 150 mg Sertraline HCl (Zoloft -) 25 mg PO DAILY [facility] Last Admin: 05/23/17 09:29 Dose: 25 mg - Objective Vital Signs: Vital Signs Temperature 98.2 F 05/23/17 09:14 Pulse Rate 69 05/23/17 09:14 Respiratory Rate 18 05/23/17 09:14 Blood Pressure 152/87 05/23/17 09:14 O2 Sat by Pulse Oximetry (%) 94 L 05/23/17 02:00 Constitutional: Yes: No Distress HENT: Yes: Atraumatic Neck: Yes: Supple Cardiovascular: Yes: Regular Rate and Rhythm Respiratory: Yes: CTA Bilaterally Gastrointestinal: Yes: Normal Bowel Sounds Extremities: Yes: WNL Neurological: Yes: Alert, Oriented Labs: CBC, BMP 05/21/17 07:09 05/21/17 07:09 INR, PTT INR 1.08 (0.82-1.09) 05/21/17 00:52 Problem List - Problems (1) Chest pain Assessment/Plan: resolved troponin now normal Code(s): R07.9 - CHEST PAIN, UNSPECIFIED (2) Elevated troponin I level Assessment/Plan: trended down Code(s): R74.8 - ABNORMAL LEVELS OF OTHER SERUM ENZYMES (3) Morbid obesity Code(s): E66.01 - MORBID (SEVERE) OBESITY DUE TO EXCESS CALORIES (4) Diabetes Assessment/Plan: on insulin po meds bgms Code(s): E11.9 - TYPE 2 DIABETES MELLITUS WITHOUT COMPLICATIONS Qualifiers: (5) Hyperlipidemia Assessment/Plan: on med Code(s): E78.5 - HYPERLIPIDEMIA, UNSPECIFIED (6) Paroxysmal atrial fibrillation Assessment/Plan: on eliquis Code(s): I48.0 - PAROXYSMAL ATRIAL FIBRILLATION Assessment/Plan for cardiac cath transfer to tertiary care on thursday see cardiology note
[2017-05-23 14:29] LABS: ANION GAP 6 (8-16); BLOOD UREA NITROGEN 19 mg/dL (7-18); CALCIUM 8.8 mg/dL (8.5-10.1); CHLORIDE 105 mmol/L (98-107); CO2 30 mmol/L (21-32); CREATININE 1.2 mg/dL (0.55-1.02); GLUCOSE,RANDOM 109 mg/dL (74-106); MAGNESIUM 2.1 mg/dL (1.8-2.4); POTASSIUM 4.2 mmol/L (3.5-5.1); SODIUM 141 mmol/L (136-145)
[2017-05-23] MEDS ORDERED: INSULIN (NOVOLOG) ASPART 100 UNITS/ML 10ML VIAL ONE (21:24)
[2017-05-23] MEDS: ATORVASTATIN CA 80 MG TABLET (FP) PO SCH (21:55)
[2017-05-24] MEDS: INSULIN SLIDING SCALE (NOVOLOG) 1 VIAL SQ SCH ×4 (06:45→22:02)
[2017-05-24] MEDS: metFORMIN HCL 500 MG TABLET (FP) PO SCH ×2 (06:46→17:25)
[2017-05-24] MEDS: FUROSEMIDE 20 MG TABLET (FP) PO SCH (10:24)
[2017-05-24] MEDS: RANITIDINE HCL 150 MG TABLET (FP) PO SCH ×2 (10:24→22:02)
[2017-05-24] MEDS: LISINOPRIL 5 MG TABLET (FP) PO SCH (10:24)
[2017-05-24] MEDS: SERTRALINE HCL 25 MG TABLET (FP) PO SCH (10:24)
[2017-05-24] MEDS: NYSTATIN POWDER 100,000 UNITS/GM - 15 GM TOPICAL POWDER TP SCH (10:24)
[2017-05-24] MEDS: CLOPIDOGREL BISULFATE 75 MG TABLET (FP) PO SCH ×2 (10:24→11:34)
[2017-05-24] MEDS: ASPIRIN COATED 81 MG TABLET.EC PO SCH (10:24)
[2017-05-24] MEDS: HEPARIN SOD,PORK IN 0.45% NACL 25,000 UNITS/500 ML INFUS.BAG IVPB SCH (10:25)
[2017-05-24] MEDS: APIXABAN 5 MG TABLET PO SCH ×2 (10:26→22:02)
--- NOTE | 2017-05-24 16:28 | PN ---
Progress Note, Physician Chief Complaint: Pt A&Ox3; OOB in chair; \no further chest pain; slept well last night; not dyspneic. - Current Medication List Current Medications: Active Medications Acetaminophen (Tylenol -) 650 mg PO Q6H PRN PRN Reason: FEVER Last Admin: 05/22/17 14:57 Dose: 650 mg Apixaban (Eliquis -) 5 mg PO BID [facility] Last Admin: 05/24/17 10:26 Dose: Not Given Aspirin (Ecotrin -) 81 mg PO DAILY [facility] Last Admin: 05/24/17 10:24 Dose: 81 mg Atorvastatin Calcium (Lipitor -) 80 mg PO HS [facility] Last Admin: 05/23/17 21:55 Dose: 80 mg Clopidogrel Bisulfate (Plavix -) 75 mg PO DAILY [facility] Last Admin: 05/24/17 11:34 Dose: 75 mg Diltiazem HCl (Cardizem Cd -) 360 mg PO DAILY [facility] Last Admin: 05/24/17 10:24 Dose: 360 mg Furosemide (Lasix -) 40 mg PO DAILY [facility] Last Admin: 05/24/17 10:24 Dose: 40 mg Heparin Sodium (Porcine) (Heparin -) 1,000 unit IVPUSH PRN PRN PRN Reason: Heparin Heparin Sodium (Porcine) (Heparin -) 5,000 unit IVPUSH PRN PRN PRN Reason: Heparin HEPARIN SOD,PORK IN 0.45% NACL (Heparin-1/2ns 25,000 Units/500) 25,000 units in 500 mls @ 20 mls/hr IVPB TITR [facility]; 1,000 UNITS/HR PRN Reason: Protocol Last Admin: 05/24/17 10:25 Dose: 1,000 units/hr, 20 mls/hr Insulin Aspart (Novolog Vial Sliding Scale -) 0 vial SQ ACHS [facility] PRN Reason: Protocol Last Admin: 05/24/17 11:36 Dose: Not Given Lisinopril (Prinivil) 2.5 mg PO DAILY [facility] Last Admin: 05/24/17 10:24 Dose: 2.5 mg Metformin HCl (Glucophage -) 500 mg PO BIDI [facility] Last Admin: 05/24/17 06:46 Dose: 500 mg Metoprolol Succinate (Toprol Xl -) 50 mg PO DAILY [facility] Last Admin: 05/24/17 10:24 Dose: 50 mg Nystatin (Nystop Powder -) 1 applic TP DAILY [facility] Last Admin: 05/24/17 10:24 Dose: 1 applic Ranitidine HCl (Zantac -) 150 mg PO BID [facility] Last Admin: 05/24/17 10:24 Dose: 150 mg Sertraline HCl (Zoloft -) 25 mg PO DAILY [facility] Last Admin: 05/24/17 10:24 Dose: 25 mg - Objective Vital Signs: Vital Signs Temperature 98.4 F 05/24/17 13:45 Pulse Rate 64 05/24/17 13:45 Respiratory Rate 16 05/24/17 13:45 Blood Pressure 128/95 05/24/17 13:45 O2 Sat by Pulse Oximetry (%) 97 05/24/17 10:22 Labs: CBC, BMP 05/21/17 07:09 05/23/17 13:35 INR, PTT INR 1.08 (0.82-1.09) 05/21/17 00:52 Problem List - Problems (1) Anxiety and depression Code(s): F41.8 - OTHER SPECIFIED ANXIETY DISORDERS (2) Atypical chest pain Assessment/Plan: TNI mildly elevated (below [place] levels). Code(s): R07.89 - OTHER CHEST PAIN (3) Morbid obesity Code(s): E66.01 - MORBID (SEVERE) OBESITY DUE TO EXCESS CALORIES (4) Diabetes Code(s): E11.9 - TYPE 2 DIABETES MELLITUS WITHOUT COMPLICATIONS Qualifiers: (5) HTN (hypertension), benign Code(s): I10 - ESSENTIAL (PRIMARY) HYPERTENSION (6) Hyperlipidemia Code(s): E78.5 - HYPERLIPIDEMIA, UNSPECIFIED (7) Paroxysmal atrial fibrillation Code(s): I48.0 - PAROXYSMAL ATRIAL FIBRILLATION (8) Sleep apnea Code(s): G47.30 - SLEEP APNEA, UNSPECIFIED (9) Hypokalemia Code(s): E87.6 - HYPOKALEMIA (10) Elevated troponin I level Code(s): R74.8 - ABNORMAL LEVELS OF OTHER SERUM ENZYMES (11) History of heart artery stent Assessment/Plan: [place] Stent placed 03/2017 after + stress MIBI; multivessel CAD. Continued chest pressure at rest. Mildly elevated TNI. Off apixaban now; IV heparin started this morning; for coronary angiogram. Code(s): Z95.5 - PRESENCE OF CORONARY ANGIOPLASTY IMPLANT AND GRAFT (12) [place] cardiac risk >20% in next 10 years Code(s): Z91.89 - OTH PERSONAL RISK FACTORS, NOT ELSEWHERE CLASSIFIED
--- NOTE | 2017-05-24 17:36 | EKG ---
Test Reason : Blood Pressure : / mmHG Vent. Rate : 068 BPM Atrial Rate : 068 BPM P-R Int : 162 ms QRS Dur : 076 ms QT Int : 450 ms P-R-T Axes : 053 -23 063 degrees QTc Int : 478 ms SINUS RHYTHM WITH PREMATURE ATRIAL COMPLEXES SEPTAL INFARCT (CITED ON OR BEFORE 23-MAR-2016) ABNORMAL ECG WHEN COMPARED WITH ECG OF 21-MAY-2017 09:05, PREMATURE ATRIAL COMPLEXES ARE NOW PRESENT Confirmed by EMERITA GARCIA MD ([id number]) on 05/24/2017 5:35:55 PM Referred By: Morteza HONG Confirmed By:EMERITA GARCIA MD
--- NOTE | 2017-05-24 19:29 | PN ---
Progress Note, Physician History of Present Illness: feeling good - Current Medication List Current Medications: Active Medications Acetaminophen (Tylenol -) 650 mg PO Q6H PRN PRN Reason: FEVER Last Admin: 05/22/17 14:57 Dose: 650 mg Apixaban (Eliquis -) 5 mg PO BID [facility] Last Admin: 05/24/17 10:26 Dose: Not Given Aspirin (Ecotrin -) 81 mg PO DAILY [facility] Last Admin: 05/24/17 10:24 Dose: 81 mg Atorvastatin Calcium (Lipitor -) 80 mg PO HS [facility] Last Admin: 05/23/17 21:55 Dose: 80 mg Clopidogrel Bisulfate (Plavix -) 75 mg PO DAILY [facility] Last Admin: 05/24/17 11:34 Dose: 75 mg Diltiazem HCl (Cardizem Cd -) 360 mg PO DAILY [facility] Last Admin: 05/24/17 10:24 Dose: 360 mg Furosemide (Lasix -) 40 mg PO DAILY [facility] Last Admin: 05/24/17 10:24 Dose: 40 mg Heparin Sodium (Porcine) (Heparin -) 1,000 unit IVPUSH PRN PRN PRN Reason: Heparin Heparin Sodium (Porcine) (Heparin -) 5,000 unit IVPUSH PRN PRN PRN Reason: Heparin HEPARIN SOD,PORK IN 0.45% NACL (Heparin-1/2ns 25,000 Units/500) 25,000 units in 500 mls @ 20 mls/hr IVPB TITR [facility]; 1,000 UNITS/HR PRN Reason: Protocol Last Admin: 05/24/17 10:25 Dose: 1,000 units/hr, 20 mls/hr Insulin Aspart (Novolog Vial Sliding Scale -) 0 vial SQ ACHS [facility] PRN Reason: Protocol Last Admin: 05/24/17 17:27 Dose: Not Given Lisinopril (Prinivil) 2.5 mg PO DAILY [facility] Last Admin: 05/24/17 10:24 Dose: 2.5 mg Metformin HCl (Glucophage -) 500 mg PO BIDI [facility] Last Admin: 05/24/17 17:25 Dose: 500 mg Metoprolol Succinate (Toprol Xl -) 50 mg PO DAILY [facility] Last Admin: 05/24/17 10:24 Dose: 50 mg Nystatin (Nystop Powder -) 1 applic TP DAILY [facility] Last Admin: 05/24/17 10:24 Dose: 1 applic Ranitidine HCl (Zantac -) 150 mg PO BID [facility] Last Admin: 05/24/17 10:24 Dose: 150 mg Sertraline HCl (Zoloft -) 25 mg PO DAILY [facility] Last Admin: 05/24/17 10:24 Dose: 25 mg - Objective Vital Signs: Vital Signs Temperature 99.3 F 05/24/17 18:48 Pulse Rate 61 05/24/17 18:48 Respiratory Rate 18 05/24/17 18:48 Blood Pressure 115/55 05/24/17 18:48 O2 Sat by Pulse Oximetry (%) 97 05/24/17 10:22 Constitutional: Yes: No Distress HENT: Yes: Atraumatic Neck: Yes: Supple Cardiovascular: Yes: Regular Rate and Rhythm Respiratory: Yes: CTA Bilaterally Gastrointestinal: Yes: Normal Bowel Sounds Extremities: Yes: WNL Neurological: Yes: Alert, Oriented Labs: CBC, BMP 05/21/17 07:09 05/23/17 13:35 INR, PTT INR 1.08 (0.82-1.09) 05/21/17 00:52 Problem List - Problems (1) Chest pain Assessment/Plan: resolved troponin now normal Code(s): R07.9 - CHEST PAIN, UNSPECIFIED (2) Elevated troponin I level Assessment/Plan: trended down Code(s): R74.8 - ABNORMAL LEVELS OF OTHER SERUM ENZYMES (3) Morbid obesity Code(s): E66.01 - MORBID (SEVERE) OBESITY DUE TO EXCESS CALORIES (4) Diabetes Assessment/Plan: on insulin po meds bgms Code(s): E11.9 - TYPE 2 DIABETES MELLITUS WITHOUT COMPLICATIONS Qualifiers: (5) Hyperlipidemia Assessment/Plan: on med Code(s): E78.5 - HYPERLIPIDEMIA, UNSPECIFIED (6) Paroxysmal atrial fibrillation Assessment/Plan: on eliquis Code(s): I48.0 - PAROXYSMAL ATRIAL FIBRILLATION
[2017-05-24] MEDS: ATORVASTATIN CA 80 MG TABLET (FP) PO SCH (22:02)
[2017-05-25] MEDS: INSULIN SLIDING SCALE (NOVOLOG) 1 VIAL SQ SCH ×4 (06:32→21:24)
[2017-05-25] MEDS: metFORMIN HCL 500 MG TABLET (FP) PO SCH ×2 (06:32→16:53)
[2017-05-25 07:57] LABS: BASO % 0.8 % (0-2.0); HEMATOCRIT 42.3 % (32.4-45.2); HEMOGLOBIN 14.4 GM/dL (10.7-15.3); LYMPH % 23.6 % (8-40); MCH 31.3 pg (25.7-33.7); MCHC 34.1 g/dl (32.0-36.0); MEAN CELL VOLUME 91.8 fl (80-96); MONO % 8.7 % (3.8-10.2); NEUT % 63.9 % (42.8-82.8); PLATELET COUNT 215 K/MM3 (134-434); RBC 4.61 M/mm3 (3.60-5.2); WHITE BLOOD COUNT 6.2 K/mm3 (4.0-10.0)
[2017-05-25 08:26] LABS: ALBUMIN 3.3 g/dl (3.4-5.0); ANION GAP 11 (8-16); BLOOD UREA NITROGEN 19 mg/dL (7-18); CALCIUM 8.7 mg/dL (8.5-10.1); CHLORIDE 104 mmol/L (98-107); CO2 27 mmol/L (21-32); CREATININE 0.9 mg/dL (0.55-1.02); GLUCOSE,RANDOM 128 mg/dL (74-106); POTASSIUM 3.5 mmol/L (3.5-5.1); SGOT/AST 10 U/L (15-37); SGPT/ALT 17 U/L (12-78); SODIUM 142 mmol/L (136-145)
[2017-05-25 08:28] LABS: ALK PHOS 60 U/L (45-117); BILIRUBIN,TOTAL 0.6 mg/dL (0.2-1.0); TOT PROT 6.5 g/dl (6.4-8.2)
--- NOTE | 2017-05-25 09:16 | PN ---
Progress Note, Physician History of Present Illness: The patient is a 71 year old white female brought via EMS and presenting with family, with a significant past medical history of thoracic aortic aneurysm repair, cerebral aneurysm s/p clipping, DM, HTN, CAD s/p stents (03/2017 at [facility] by Dr. Ware), morbid obesity, anxiety/depression, sedentary lifestyle, who presents to the emergency department with chest pain and shortness of breath that started 1 hour prior to presentation. She describes her chest pain as localized in the middle, ranging from mild to moderate, without radiation or modifying factors. Pt states that she was walking when the pain started but does not believe that walking made the pain worse (later, she said the pain started when she tried to sit up while still in bed) Denies pleuritic nature to pain. Denies SOB currently. The patient has been to the ED numerous times in the past 4 years, with the last 4 visits being 02/05/17, 03/15/17, 04/07/17 and 05/11/17. She reports that this current episode of chest pain is similar to her previous episodes. She notes that she had one episode of vomit, non bilious and non bloody. The patient denies headache, dizziness, fever, chills, diarrhea and constipation. Denies dysuria, frequency, urgency and hematuria. - Current Medication List Current Medications: Active Medications Acetaminophen (Tylenol -) 650 mg PO Q6H PRN PRN Reason: FEVER Last Admin: 05/22/17 14:57 Dose: 650 mg Apixaban (Eliquis -) 5 mg PO BID [facility] Last Admin: 05/24/17 22:02 Dose: 5 mg Aspirin (Ecotrin -) 81 mg PO DAILY [facility] Last Admin: 05/24/17 10:24 Dose: 81 mg Atorvastatin Calcium (Lipitor -) 80 mg PO HS [facility] Last Admin: 05/24/17 22:02 Dose: 80 mg Clopidogrel Bisulfate (Plavix -) 75 mg PO DAILY [facility] Last Admin: 05/24/17 11:34 Dose: 75 mg Diltiazem HCl (Cardizem Cd -) 360 mg PO DAILY [facility] Last Admin: 05/24/17 10:24 Dose: 360 mg Furosemide (Lasix -) 40 mg PO DAILY [facility] Last Admin: 05/24/17 10:24 Dose: 40 mg Heparin Sodium (Porcine) (Heparin -) 1,000 unit IVPUSH PRN PRN PRN Reason: Heparin Heparin Sodium (Porcine) (Heparin -) 5,000 unit IVPUSH PRN PRN PRN Reason: Heparin HEPARIN SOD,PORK IN 0.45% NACL (Heparin-1/2ns 25,000 Units/500) 25,000 units in 500 mls @ 20 mls/hr IVPB TITR BRUCE; 1,000 UNITS/HR PRN Reason: Protocol Last Admin: 05/24/17 10:25 Dose: 1,000 units/hr, 20 mls/hr Insulin Aspart (Novolog Vial Sliding Scale -) 0 vial SQ ACHS [facility] PRN Reason: Protocol Last Admin: 05/25/17 06:32 Dose: Not Given Lisinopril (Prinivil) 2.5 mg PO DAILY [facility] Last Admin: 05/24/17 10:24 Dose: 2.5 mg Metformin HCl (Glucophage -) 500 mg PO BIDI [facility] Last Admin: 05/25/17 06:32 Dose: 500 mg Metoprolol Succinate (Toprol Xl -) 50 mg PO DAILY [facility] Last Admin: 05/24/17 10:24 Dose: 50 mg Nystatin (Nystop Powder -) 1 applic TP DAILY [facility] Last Admin: 05/24/17 10:24 Dose: 1 applic Ranitidine HCl (Zantac -) 150 mg PO BID [facility] Last Admin: 05/24/17 22:02 Dose: 150 mg Sertraline HCl (Zoloft -) 25 mg PO DAILY [facility] Last Admin: 05/24/17 10:24 Dose: 25 mg - Objective Vital Signs: Vital Signs Temperature 97.7 F 05/25/17 05:00 Pulse Rate 55 L 05/25/17 05:00 Respiratory Rate 18 05/25/17 05:00 Blood Pressure 157/57 05/25/17 05:00 O2 Sat by Pulse Oximetry (%) 97 05/24/17 21:00 Eyes: Yes: WNL, Conjunctiva Clear, EOM Intact HENT: Yes: WNL, Atraumatic, Normocephalic Neck: Yes: WNL, Supple, Trachea Midline Cardiovascular: Yes: WNL, Regular Rate and Rhythm Respiratory: Yes: WNL, Regular, CTA Bilaterally Gastrointestinal: Yes: WNL, Normal Bowel Sounds Genitourinary: Yes: WNL Musculoskeletal: Yes: WNL Extremities: Yes: WNL Edema: No Integumentary: Yes: WNL Neurological: Yes: WNL, Alert, Oriented ...Motor Strength: WNL Psychiatric: Yes: WNL Labs: CBC, BMP 05/25/17 07:30 05/25/17 07:30 INR, PTT INR 1.08 (0.82-1.09) 05/21/17 00:52 Assessment/Plan - Problems (1) Anxiety and depression Code(s): F41.8 - OTHER SPECIFIED ANXIETY DISORDERS (2) Atypical chest pain Assessment/Plan: TNI mildly elevated (below [place] levels). Code(s): R07.89 - OTHER CHEST PAIN (3) Morbid obesity Code(s): E66.01 - MORBID (SEVERE) OBESITY DUE TO EXCESS CALORIES (4) Diabetes Code(s): E11.9 - TYPE 2 DIABETES MELLITUS WITHOUT COMPLICATIONS Qualifiers: (5) HTN (hypertension), benign Code(s): I10 - ESSENTIAL (PRIMARY) HYPERTENSION (6) Hyperlipidemia Code(s): E78.5 - HYPERLIPIDEMIA, UNSPECIFIED (7) Paroxysmal atrial fibrillation Code(s): I48.0 - PAROXYSMAL ATRIAL FIBRILLATION (8) Sleep apnea Code(s): G47.30 - SLEEP APNEA, UNSPECIFIED (9) Hypokalemia Code(s): E87.6 - HYPOKALEMIA (10) Elevated troponin I level Code(s): R74.8 - ABNORMAL LEVELS OF OTHER SERUM ENZYMES (11) History of heart artery stent Assessment/Plan: [place] Stent placed 03/2017 after + stress MIBI; multivessel CAD. Continued chest pressure at rest. Mildly elevated TNI. Off apixaban now; IV heparin started this morning; for coronary angiogram. Code(s): Z95.5 - PRESENCE OF CORONARY ANGIOPLASTY IMPLANT AND GRAFT (12) [place] cardiac risk >20% in next 10 years Code(s): Z91.89 - OTH PERSONAL RISK FACTORS, NOT ELSEWHERE CLASSIFIED
[2017-05-25] MEDS: NYSTATIN POWDER 100,000 UNITS/GM - 15 GM TOPICAL POWDER TP SCH (09:58)
[2017-05-25] MEDS: FUROSEMIDE 20 MG TABLET (FP) PO SCH (09:58)
[2017-05-25] MEDS: SERTRALINE HCL 25 MG TABLET (FP) PO SCH (09:58)
[2017-05-25] MEDS: LISINOPRIL 5 MG TABLET (FP) PO SCH (09:59)
[2017-05-25] MEDS: CLOPIDOGREL BISULFATE 75 MG TABLET (FP) PO SCH (09:59)
[2017-05-25] MEDS: RANITIDINE HCL 150 MG TABLET (FP) PO SCH ×2 (09:59→21:21)
[2017-05-25] MEDS: ASPIRIN COATED 81 MG TABLET.EC PO SCH (09:59)
[2017-05-25] MEDS: HEPARIN SOD,PORK IN 0.45% NACL 25,000 UNITS/500 ML INFUS.BAG IVPB SCH (10:01)
[2017-05-25] MEDS: APIXABAN 5 MG TABLET PO SCH ×2 (10:53→21:15)
--- NOTE | 2017-05-25 12:25 | DS ---
Physical Examination Vital Signs: Vital Signs Temperature 97.7 F 05/25/17 05:00 Pulse Rate 55 L 05/25/17 05:00 Respiratory Rate 18 05/25/17 05:00 Blood Pressure 157/57 05/25/17 05:00 O2 Sat by Pulse Oximetry (%) 97 05/24/17 21:00 Labs: CBC, BMP 05/25/17 07:30 05/25/17 07:30 Discharge Summary Reason For Visit: CHEST PAIN Current Active Problems Chest pain (Acute) Elevated troponin I level (Acute) [place] cardiac risk >20% in next 10 years (Acute) History of heart artery stent (Acute) Hypokalemia (Acute) - Instructions Referrals: Yamilet Engle MD [Primary Care Provider] - - Home Medications Comprehensive Discharge Medication List: Ambulatory Orders Atorvastatin Ca [Lipitor] 40 mg PO HS tablet 11/12/15 Metoprolol Succinate [Toprol XL -] 50 mg PO DAILY tab.sr.24h 11/12/15 Ranitidine [Zantac -] 150 mg PO BID tablet 11/12/15 Sertraline HCl [Zoloft -] 25 mg PO DAILY tablet 11/12/15 metFORMIN HCL [Glucophage -] 500 mg PO BIDI tablet 11/12/15 Apixaban [Eliquis] 5 mg PO BID 12/22/15 Diltiazem Cd [Cardizem Cd -] 360 mg PO DAILY #60 cap.cd.24h 03/25/16 Furosemide [Lasix -] 40 mg PO DAILY 10/06/16 Aspirin Coated [Ecotrin -] 81 mg PO DAILY tablet.ec 05/22/17 Clopidogrel Bisulfate [Plavix -] 75 mg PO DAILY #30 tablet 05/22/17 Nystatin Powder [Nystop Powder -] 1 applic TP DAILY #1 applic 05/22/17
--- NOTE | 2017-05-25 13:15 | PN ---
Progress Note (short form) - Note Progress Note: PULMONARY CONSULTATION DICTATED 05/25/17 IMP CHEST PAIN ASHD S/P STENT + TROPONIN CHF PAF DM HLD ASTHMA FRANSISCA NOT ON CPAP H/O THORACIC AORTIC ANEURYSM H/O JACK [employer]ER ANEURYSM PLAN CARDIAC CATH O2 SLEEP STUDIES OUTPATIENT WT LOSS PFTS OUTPATIENT DR DIEGO Problem List - Problems (1) Chest pain Code(s): R07.9 - CHEST PAIN, UNSPECIFIED (2) History of heart artery stent Code(s): Z95.5 - PRESENCE OF CORONARY ANGIOPLASTY IMPLANT AND GRAFT (3) Anxiety and depression Code(s): F41.8 - OTHER SPECIFIED ANXIETY DISORDERS (4) Coronary artery disease Code(s): I25.10 - ATHSCL HEART DISEASE OF [place] CORONARY ARTERY W/O ANG PCTRS (5) Morbid obesity Code(s): E66.01 - MORBID (SEVERE) OBESITY DUE TO EXCESS CALORIES (6) HTN (hypertension), benign Code(s): I10 - ESSENTIAL (PRIMARY) HYPERTENSION (7) Hyperlipidemia Code(s): E78.5 - HYPERLIPIDEMIA, UNSPECIFIED (8) Paroxysmal atrial fibrillation Code(s): I48.0 - PAROXYSMAL ATRIAL FIBRILLATION (9) Sleep apnea Code(s): G47.30 - SLEEP APNEA, UNSPECIFIED (10) Asthma Code(s): J45.909 - UNSPECIFIED ASTHMA, UNCOMPLICATED
--- NOTE | 2017-05-25 14:08 | CONS ---
DATE OF CONSULTATION: 05/25/2017 REFERRING PHYSICIAN: Dr. 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 The patient denied any fevers, chills, nausea, vomiting, or diaphoresis. She described the chest pain as localized in the middle ranging from mild to moderate with no radiation. She is also complaining of increasing shortness of breath with exertion. She denies any orthopnea. She was admitted with the above. On admission, she was evaluated by Dr. Browning for cardiology consultation. The patient was placed on heparin and continued on Eliquis for PAF and continued on medications. The patient is currently to be transferred to [facility] for cardiac catheterization. PAST MEDICAL HISTORY: Again, includes ASHD, paroxysmal atrial fibrillation, history of thoracic aneurysm status post repair, history of SKID MAN aneurysm status post clipping, asthma, hypertension, diabetes, status post stent March 2017, morbid obesity, obstructive sleep apnea not on CPAP, anxiety, depression, sedentary lifestyle, hyperlipidemia, PSVT, and chronic kidney disease. REVIEW OF SYSTEMS: Positive orthopnea. Positive dyspnea on exertion. Positive chest pain. No cough, no hemoptysis, no abdominal pain, no bronchospasm, no lower extremity edema. SOCIAL HISTORY: History of tobacco use quit 30 years ago. No occupational exposures. CURRENT MEDICATIONS: Include Tylenol, Prinivil, Eliquis, heparin, Zoloft, Toprol, Cardizem, Glucophage, ranitidine, Lipitor, NovoLog, Lasix, Ecotrin, Plavix, and nystatin. PHYSICAL EXAMINATION: General: The patient is an obese female well-developed, awake, alert in no acute distress. Vital Signs: She is currently afebrile. Blood pressure 114/64, respiratory rate 18, O2 saturation 95% on room air. HEENT: Normocephalic and atraumatic. Neck: Supple. Heart: Regular S1, S2. Chest: Clear. Abdomen: Soft. Bowel sounds positive. Extremities: No cyanosis or edema. LABORATORIES: WBC 6.2, hemoglobin 14.4, hematocrit 42.3 with a platelet count of 215,000. INR 1.08, BUN 19, creatinine 0.9. Chest x-ray: No infiltrates and no effusions with cardiomegaly. IMPRESSION: 1. Chest pain, chest pain syndrome, arteriosclerotic heart disease. 2. Arteriosclerotic heart disease status post stents. 3. History of asthma. 4. Obstructive sleep apnea not on CPAP. 5. Hypertension. 6. Hyperlipidemia. 7. Paroxysmal atrial fibrillation. 8. History of thoracic aortic aneurysm. 9. History of central nervous system aneurysm. 10. Congestive heart failure. PLAN: Continue current cardiac medications. Patient to undergo cardiac catheterization. Outpatient sleep study. PFP as an outpatient. Inhaled bronchodilators p.rIsabel Real/[id number]
--- NOTE | 2017-05-25 20:54 | PN ---
Progress Note, Physician History of Present Illness: comfortable - Current Medication List Current Medications: Active Medications Acetaminophen (Tylenol -) 650 mg PO Q6H PRN PRN Reason: FEVER Last Admin: 05/22/17 14:57 Dose: 650 mg Apixaban (Eliquis -) 5 mg PO BID [facility] Last Admin: 05/25/17 10:53 Dose: Not Given Aspirin (Ecotrin -) 81 mg PO DAILY [facility] Last Admin: 05/25/17 09:59 Dose: 81 mg Atorvastatin Calcium (Lipitor -) 80 mg PO HS [facility] Last Admin: 05/24/17 22:02 Dose: 80 mg Clopidogrel Bisulfate (Plavix -) 75 mg PO DAILY [facility] Last Admin: 05/25/17 09:59 Dose: 75 mg Diltiazem HCl (Cardizem Cd -) 360 mg PO DAILY [facility] Last Admin: 05/25/17 09:58 Dose: 360 mg Furosemide (Lasix -) 40 mg PO DAILY [facility] Last Admin: 05/25/17 09:58 Dose: 40 mg Heparin Sodium (Porcine) (Heparin -) 1,000 unit IVPUSH PRN PRN PRN Reason: Heparin Heparin Sodium (Porcine) (Heparin -) 5,000 unit IVPUSH PRN PRN PRN Reason: Heparin HEPARIN SOD,PORK IN 0.45% NACL (Heparin-1/2ns 25,000 Units/500) 25,000 units in 500 mls @ 20 mls/hr IVPB TITR BRUCE; 1,000 UNITS/HR PRN Reason: Protocol Last Admin: 05/25/17 10:01 Dose: 1,000 units/hr, 20 mls/hr Insulin Aspart (Novolog Vial Sliding Scale -) 0 vial SQ ACHS [facility] PRN Reason: Protocol Last Admin: 05/25/17 16:52 Dose: Not Given Lisinopril (Prinivil) 2.5 mg PO DAILY [facility] Last Admin: 05/25/17 09:59 Dose: 2.5 mg Metformin HCl (Glucophage -) 500 mg PO BIDI [facility] Last Admin: 05/25/17 16:53 Dose: 500 mg Metoprolol Succinate (Toprol Xl -) 50 mg PO DAILY [facility] Last Admin: 05/25/17 10:00 Dose: 50 mg Nystatin (Nystop Powder -) 1 applic TP DAILY [facility] Last Admin: 05/25/17 09:58 Dose: 1 applic Ranitidine HCl (Zantac -) 150 mg PO BID [facility] Last Admin: 05/25/17 09:59 Dose: 150 mg Sertraline HCl (Zoloft -) 25 mg PO DAILY [facility] Last Admin: 05/25/17 09:58 Dose: 25 mg - Objective Vital Signs: Vital Signs Temperature 98.6 F 05/25/17 17:00 Pulse Rate 53 L 05/25/17 17:00 Respiratory Rate 17 05/25/17 17:00 Blood Pressure 129/53 05/25/17 17:00 O2 Sat by Pulse Oximetry (%) 95 05/25/17 09:00 Constitutional: Yes: No Distress HENT: Yes: Atraumatic Neck: Yes: Supple Cardiovascular: Yes: Regular Rate and Rhythm Respiratory: Yes: CTA Bilaterally Gastrointestinal: Yes: Normal Bowel Sounds Extremities: Yes: WNL Edema: No Peripheral Pulses WNL: Yes Neurological: Yes: Alert, Oriented Labs: CBC, BMP 05/25/17 07:30 05/25/17 07:30 INR, PTT INR 1.08 (0.82-1.09) 05/21/17 00:52 Problem List - Problems (1) Chest pain Assessment/Plan: resolved troponin now normal for transfer to tertiary care for cardiac cath Code(s): R07.9 - CHEST PAIN, UNSPECIFIED (2) Elevated troponin I level Assessment/Plan: trended down...wnl Code(s): R74.8 - ABNORMAL LEVELS OF OTHER SERUM ENZYMES (3) Morbid obesity Code(s): E66.01 - MORBID (SEVERE) OBESITY DUE TO EXCESS CALORIES (4) Diabetes Assessment/Plan: on insulin hold metformin before cardiac cath bgms Code(s): E11.9 - TYPE 2 DIABETES MELLITUS WITHOUT COMPLICATIONS Qualifiers: (5) Hyperlipidemia Assessment/Plan: on med Code(s): E78.5 - HYPERLIPIDEMIA, UNSPECIFIED (6) Paroxysmal atrial fibrillation Assessment/Plan: on eliquis Code(s): I48.0 - PAROXYSMAL ATRIAL FIBRILLATION (7) HTN (hypertension), benign Assessment/Plan: hold prinivil before cardiac cath Code(s): I10 - ESSENTIAL (PRIMARY) HYPERTENSION
--- NOTE | 2017-05-25 20:57 | DS ---
Physical Examination Vital Signs: Vital Signs Temperature 98.6 F 05/25/17 17:00 Pulse Rate 53 L 05/25/17 17:00 Respiratory Rate 17 05/25/17 17:00 Blood Pressure 129/53 05/25/17 17:00 O2 Sat by Pulse Oximetry (%) 95 05/25/17 09:00 Labs: CBC, BMP 05/25/17 07:30 05/25/17 07:30 Discharge Summary Reason For Visit: CHEST PAIN Current Active Problems Asthma (Acute) Chest pain (Acute) Elevated troponin I level (Acute) [place] cardiac risk >20% in next 10 years (Acute) History of heart artery stent (Acute) Hypokalemia (Acute) - Instructions Referrals: Yamilet Engle MD [Primary Care Provider] - - Home Medications Comprehensive Discharge Medication List: Ambulatory Orders Atorvastatin Ca [Lipitor] 40 mg PO HS tablet 11/12/15 Metoprolol Succinate [Toprol XL -] 50 mg PO DAILY tab.sr.24h 11/12/15 Ranitidine [Zantac -] 150 mg PO BID tablet 11/12/15 Sertraline HCl [Zoloft -] 25 mg PO DAILY tablet 11/12/15 metFORMIN HCL [Glucophage -] 500 mg PO BIDI tablet 11/12/15 Apixaban [Eliquis] 5 mg PO BID 12/22/15 Diltiazem Cd [Cardizem Cd -] 360 mg PO DAILY #60 cap.cd.24h 03/25/16 Furosemide [Lasix -] 40 mg PO DAILY 10/06/16 Aspirin Coated [Ecotrin -] 81 mg PO DAILY tablet.ec 05/22/17 Clopidogrel Bisulfate [Plavix -] 75 mg PO DAILY #30 tablet 05/22/17 Nystatin Powder [Nystop Powder -] 1 applic TP DAILY #1 applic 05/22/17 HOLD METFORMIN, PRINIVIL AND LASIX BEFORE CARDIAC CATH
[2017-05-25] MEDS ORDERED: INSULIN (NOVOLOG) ASPART 100 UNITS/ML 10ML VIAL ONE (21:17)
[2017-05-25] MEDS: ATORVASTATIN CA 80 MG TABLET (FP) PO SCH (21:21)
[2017-05-26] MEDS: INSULIN SLIDING SCALE (NOVOLOG) 1 VIAL SQ SCH ×2 (06:01→12:11)
[2017-05-26] MEDS: CLOPIDOGREL BISULFATE 75 MG TABLET (FP) PO SCH (09:13)
[2017-05-26] MEDS: ASPIRIN COATED 81 MG TABLET.EC PO SCH (09:13)
[2017-05-26] MEDS: RANITIDINE HCL 150 MG TABLET (FP) PO SCH (09:14)
[2017-05-26] MEDS: APIXABAN 5 MG TABLET PO SCH ×2 (09:14→09:16)
[2017-05-26] MEDS: SERTRALINE HCL 25 MG TABLET (FP) PO SCH (09:14)
[2017-05-26] MEDS: FUROSEMIDE 20 MG TABLET (FP) PO SCH (09:14)
[2017-05-26 09:56] LABS: HEMATOCRIT 42.5 % (32.4-45.2); HEMOGLOBIN 14.2 GM/dL (10.7-15.3); MCH 30.7 pg (25.7-33.7); MCHC 33.3 g/dl (32.0-36.0); MEAN CELL VOLUME 92.1 fl (80-96); PLATELET COUNT 221 K/MM3 (134-434); RBC 4.62 M/mm3 (3.60-5.2); RDW 14.9 % (11.6-15.6)
[2017-05-26] MEDS: HEPARIN SOD,PORK IN 0.45% NACL 25,000 UNITS/500 ML INFUS.BAG IVPB SCH (11:30)
[2017-05-26 14:02] VITALS: BP 138/61; PULSE 50; TEMP 98.3
[2017-05-26] MEDS: NYSTATIN POWDER 100,000 UNITS/GM - 15 GM TOPICAL POWDER TP SCH (14:09)
--- NOTE | 2017-05-26 19:11 | DS ---
Physical Examination Vital Signs: Vital Signs Temperature 98.3 F 05/26/17 14:01 Pulse Rate 50 L 05/26/17 14:01 Respiratory Rate 18 05/26/17 14:01 Blood Pressure 138/61 05/26/17 14:01 O2 Sat by Pulse Oximetry (%) 95 05/26/17 10:00 Labs: CBC, BMP 05/26/17 09:35 05/25/17 07:30 Discharge Summary Reason For Visit: CHEST PAIN Condition: Stable - Instructions Referrals: Yamilet Engle MD [Primary Care Provider] - Disposition: TRANSFER ACUTE CARE/OTHER HOSP - Home Medications Comprehensive Discharge Medication List: Ambulatory Orders Atorvastatin Ca [Lipitor] 40 mg PO HS tablet 11/12/15 Metoprolol Succinate [Toprol XL -] 50 mg PO DAILY tab.sr.24h 11/12/15 Ranitidine [Zantac -] 150 mg PO BID tablet 11/12/15 Sertraline HCl [Zoloft -] 25 mg PO DAILY tablet 11/12/15 metFORMIN HCL [Glucophage -] 500 mg PO BIDI tablet 11/12/15 Apixaban [Eliquis] 5 mg PO BID 12/22/15 Diltiazem Cd [Cardizem Cd -] 360 mg PO DAILY #60 cap.cd.24h 03/25/16 Furosemide [Lasix -] 40 mg PO DAILY 10/06/16 Aspirin Coated [Ecotrin -] 81 mg PO DAILY tablet.ec 05/22/17 Clopidogrel Bisulfate [Plavix -] 75 mg PO DAILY #30 tablet 05/22/17 Nystatin Powder [Nystop Powder -] 1 applic TP DAILY #1 applic 05/22/17 dc to [facility]
== END 2017-05-26 15:59 | disposition short-term general hospital (02) | DRG 303 ==
LOC: JER 23:02 → JERBED 05-21 02:19 → OBSVTOIN 05-21 02:22 → UNDOADMOB 05-21 02:50 → JERBED 05-21 02:50 → J4S 05-21 16:28
PROVIDERS: ADMIT Internal Medicine; ATTEND Internal Medicine
DX: I25.10 Atherosclerotic heart disease of native coronary artery without angina pectoris (principal); Z68.42 Body mass index [BMI] 45.0-49.9, adult; I50.30 Unspecified diastolic (congestive) heart failure; K21.9 Gastro-esophageal reflux disease without esophagitis; I11.0 Hypertensive heart disease with heart failure; R07.89 Other chest pain; E11.9 Type 2 diabetes mellitus without complications; J44.9 Chronic obstructive pulmonary disease, unspecified; K42.9 Umbilical hernia without obstruction or gangrene; E78.00 Pure hypercholesterolemia, unspecified; I48.0 Paroxysmal atrial fibrillation; I25.2 Old myocardial infarction; E87.6 Hypokalemia; F41.8 Other specified anxiety disorders; R21 Rash and other nonspecific skin eruption; E66.01 Morbid (severe) obesity due to excess calories; G47.30 Sleep apnea, unspecified; I27.20 Pulmonary hypertension, unspecified; R74.8 Abnormal levels of other serum enzymes; Z95.5 Presence of coronary angioplasty implant and graft
CPT/HCPCS: 36415; 71046-TC-FY; 80048; 80053; 80061; 82550; 82553; 82962; 83690; 83721; 83735; 84100; 84484; 85025; 85027; 85610; 85730; 93005; 93010; 93306-TC; 99285-25; G0378; J1644

== ENCOUNTER 2017-09-07 02:47 | Inpatient (IN) | payer OTHER ==
[2017-09-07] MEDS ORDERED: dilTIAZem HCL 50 MG/10 ML - 10 ML VIAL IVPUSH ONE (02:48)
--- NOTE | 2017-09-07 02:48 | PDOC ---
History of Present Illness - General History Source: Patient Exam Limitations: No Limitations - History of Present Illness Initial Comments: 09/07/17 04:22 The patient is a 72 year old female with past medical history of thoracic aortic aneurysm s/p repair, cerebral aneurysm s/p clipping, diabetes, HTN, CHF, afib, previous MIs/CAD s/p stents done at [facility] on 03/26 presents to the ED via EMS with SOB. Patient reports the AC at her residents wasnt working, and reports she didnt eat much. Patient reports she felt weak and sob, daughter called EMS immediately. As per the EMS, the patient had a HR of 189 upon arrival with a BP of 86/50. EMS was unable to access a IV line secondary to artery collapse. Patient has a BP of 70/30 @ bus, EMS tried 2 more times to access an IV, without success. Patient was placed on 83 jewels cardioverted, s/ p an HP was brought down to 160s and BP increased. Patient was given 10 mg of diltiazem at the ED, with relief noted. Denies dysuria, hematuria, frequency or urgency to urinate. Denies fever, chills , cough or a headache. Denies chest pain. Denies nausea or vomiting. Allergies: pregabalin [From Lyrica], budesonide [From Symbicort], celecoxib [ From Celebrex], formoterol fumarate, and sulfacetamide sodium. Social history: Former smoker. Denies the use of alcohol or recreational drugs. Surgical history: brain aneurysm clipping and cardiac stents PCP: Dr. Engle. Coverage Specialist Rn: Dr. Elena Browning. <Sydni De León - Last Filed: 09/07/17 04:22> <Daksha Winchester - Last Filed: 09/07/17 05:22> - General Stated Complaint: FAST HEART RATE Time Seen by Provider: 09/07/17 02:48 Past History <Sydni De León - Last Filed: 09/07/17 04:22> - Past Medical History Anemia: No Asthma: Yes Cancer: No Cardiac Disorders: Yes (2009 STENT X1,, LINQ) 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) COPD: Yes CHF: No DVT: No Dementia: No Diabetes: Yes GI Disorders: Yes (UMBILICAL HERNIA) Disorders: No HTN: Yes Hypercholesterolemia: Yes Liver Disease: No Seizures: No Thyroid Disease: No - Surgical History Abdominal Surgery: No Appendectomy: No Cardiac Surgery: Yes (STENT X 1, LOOP RECORDER INSERTION) Cholecystectomy: No Lung Surgery: Yes (biopsy May 2013) Neurologic Surgery: Yes (brain aneurysm clipped) Orthopedic Surgery: No - Immunization History Td Vaccination: Yes Immunization Up to Date: Yes - Suicide/Smoking/Psychosocial Hx Smoking Status: Yes Smoking History: Never smoked Years of Tobacco Use: 0 Have you smoked in the past 12 months: No Number of Cigarettes Smoked Daily: 0 If you are a former smoker, when did you quit?: 40 yrs Cigars Per Day: 0 'Breaking Loose' booklet given: 08/17/13 Hx Alcohol Use: No Drug/Substance Use Hx: No Substance Use Type: None Hx Substance Use Treatment: No <Daksha Winchester - Last Filed: 09/07/17 05:22> - Past Medical History Allergies/Adverse Reactions: Allergies Allergy/AdvReac Type Severity Reaction Status Date / Time pregabalin [From Lyrica] Allergy Intermediate Verified 09/07/17 04:59 budesonide [From Symbicort] Allergy Verified 09/07/17 04:59 celecoxib [From Celebrex] Allergy Verified 09/07/17 04:59 formoterol fumarate Allergy Verified 09/07/17 04:59 [From Symbicort] sulfacetamide sodium Allergy Verified 09/07/17 04:59 [From Sulfamide] Home Medications: Ambulatory Orders Atorvastatin Ca [Lipitor] 40 mg PO HS tablet 11/12/15 Metoprolol Succinate [Toprol XL -] 50 mg PO DAILY tab.sr.24h 11/12/15 Ranitidine [Zantac -] 150 mg PO BID tablet 11/12/15 Sertraline HCl [Zoloft -] 25 mg PO DAILY tablet 11/12/15 metFORMIN HCL [Glucophage -] 500 mg PO BIDI tablet 11/12/15 Apixaban [Eliquis] 5 mg PO BID 12/22/15 Diltiazem Cd [Cardizem Cd -] 360 mg PO DAILY #60 cap.cd.24h 03/25/16 Furosemide [Lasix -] 40 mg PO DAILY 10/06/16 Aspirin Coated [Ecotrin -] 81 mg PO DAILY tablet.ec 05/22/17 Clopidogrel Bisulfate [Plavix -] 75 mg PO DAILY #30 tablet 05/22/17 Nystatin Powder [Nystop Powder -] 1 applic TP DAILY #1 applic 05/22/17 Review of Systems - Review of Systems Able to Perform ROS?: Yes Comments:: 09/07/17 04:24 GENERAL/CONSTITUTIONAL: No fever or chills. (+) weakness. HEAD, EYES, EARS, NOSE AND THROAT: No change in vision. No ear pain or discharge. No sore throat. CARDIOVASCULAR: No chest pain (+)shortness of breath. RESPIRATORY: No cough, wheezing, or hemoptysis. GASTROINTESTINAL: No nausea, vomiting, diarrhea or constipation. GENITOURINARY: No dysuria, frequency, or change in urination. MUSCULOSKELETAL: No joint or muscle swelling or pain. No neck or back pain. SKIN: No rash NEUROLOGIC: No headache, vertigo, loss of consciousness, or change in strength/ sensation. ENDOCRINE: No increased thirst. No abnormal weight change. HEMATOLOGIC/LYMPHATIC: No anemia, easy bleeding, or history of blood clots. ALLERGIC/IMMUNOLOGIC: No hives or skin allergy. <Sydni De León - Last Filed: 09/07/17 04:22> *Physical Exam - Vital Signs Last Vital Signs Temp Pulse Resp BP Pulse Ox 97.6 F 68 20 123/92 19 L 09/07/17 02:51 09/07/17 03:23 09/07/17 03:23 09/07/17 03:23 09/07/17 03:23 - Physical Exam Comments: 09/07/17 04:37 GENERAL: (+) Overweight. Awake, alert, and fully oriented X3, in no acute distress HEAD: No signs of trauma EYES: PERRLA, EOMI, sclera anicteric, conjunctiva clear ENT: Auricles normal inspection, hearing grossly normal, nares patent, oropharynx clear without exudates. Moist mucosa NECK: Normal ROM, supple, no lymphadenopathy, JVD, or masses LUNGS: Breath sounds equal, clear to auscultation bilaterally. No wheezes, and no crackles HEART: Tachycardia. Regular rate and rhythm, normal S1 and S2, no murmurs, rubs or gallops ABDOMEN:(+) Obese. Soft, nontender, normoactive bowel sounds. No guarding, no rebound. No masses EXTREMITIES: No pitting edema. No swelling to the extremity. Normal range of motion, no edema. No clubbing or cyanosis. No cords, erythema, or tenderness NEUROLOGICAL: Cranial nerves II through XII grossly intact. Normal speech, normal gait SKIN: Warm, Dry, normal turgor, no rashes or lesions noted. <Sydni De León - Last Filed: 09/07/17 04:22> ED Treatment Course - LABORATORY CBC & Chemistry Diagram: 09/07/17 02:57 09/07/17 02:57 - ADDITIONAL ORDERS Additional order review: Laboratory Results 09/07/17 09/07/17 02:57 02:57 PT with INR 11.20 INR 0.99 PTT (Actin FS) 37.3 Sodium 141 Potassium 3.8 Chloride 106 Carbon Dioxide 26 Anion Gap 9 BUN 16 Creatinine 1.0 Creat Clearance w eGFR 54.35 Random Glucose 171 H Calcium 8.8 Total Bilirubin 0.5 AST 24 ALT 40 Alkaline Phosphatase 73 Creatine Kinase 54 Troponin I < 0.02 Total Protein 6.8 Albumin 3.2 L 09/07/17 02:57 RBC 5.04 MCV 90.5 MCHC 33.1 RDW 14.1 MPV 8.2 Neutrophils % 53.8 Lymphocytes % 32.3 D Monocytes % 10.8 H Eosinophils % 2.3 Basophils % 0.8 - Medications Given in the ED: ED Medications Discontinued Medications Generic Name Dose Route Start Last Admin Trade Name Radha PRN Reason Stop Dose Admin Diltiazem HCl 10 mg 09/07/17 02:48 09/07/17 03:21 Cardizem Injection - IVPUSH 09/07/17 02:49 10 mg ONCE ONE Administration <Sydni De León - Last Filed: 09/07/17 04:22> - LABORATORY CBC & Chemistry Diagram: 09/07/17 02:57 09/07/17 02:57 <Daksha Winchester - Last Filed: 09/07/17 05:22> *DC/Admit/Observation/Transfer - Attestations Scribe Attestion: 09/07/17 04:39 Documentation prepared by Sydni De León, acting as esthetician and manager medical spa for Daksha Winchester MD. <Syndi De León - Last Filed: 09/07/17 04:22> - Discharge Dispostion Decision to Admit order: Yes <Daksha Winchester - Last Filed: 09/07/17 05:22> Diagnosis at time of Disposition: Chest pain, Paroxysmal SVT (supraventricular tachycardia), History of cardioversion - Discharge Dispostion Condition at time of disposition: Guarded
[2017-09-07 02:56] VITALS: BMI 49.6
[2017-09-07 03:03] LABS: BASO % 0.8 % (0-2.0); EOS % 2.3 % (0-4.5); HEMATOCRIT 45.6 % (32.4-45.2); HEMOGLOBIN 15.1 GM/dL (10.7-15.3); LYMPH % 32.3 % (8-40); MCHC 33.1 g/dl (32.0-36.0); MEAN CELL VOLUME 90.5 fl (80-96); MEAN PLT VOLUME 8.2 fl (7.5-11.1); MONO % 10.8 % (3.8-10.2); NEUT % 53.8 % (42.8-82.8); PLATELET COUNT 222 K/MM3 (134-434); RBC 5.04 M/mm3 (3.60-5.2); RDW 14.1 % (11.6-15.6); WHITE BLOOD COUNT 6.8 K/mm3 (4.0-10.0)
[2017-09-07 03:17] LABS: INR 0.99 (0.82-1.09); PROTHROMBIN TIME (PATIENT) 11.2 SEC (9.7-13.0)
[2017-09-07 03:19] LABS: ACTIVATED PTT 37.3 SECONDS (25.2-36.5)
[2017-09-07 03:28] LABS: ALBUMIN 3.2 g/dl (3.4-5.0); ANION GAP 9 (8-16); BILIRUBIN,TOTAL 0.5 mg/dL (0.2-1.0); BLOOD UREA NITROGEN 16 mg/dL (7-18); CALCIUM 8.8 mg/dL (8.5-10.1); CHLORIDE 106 mmol/L (98-107); CO2 26 mmol/L (21-32); GLUCOSE,RANDOM 171 mg/dL (74-106); POTASSIUM 3.8 mmol/L (3.5-5.1); SGOT/AST 24 U/L (15-37); SGPT/ALT 40 U/L (12-78); SODIUM 141 mmol/L (136-145); TOT PROT 6.8 g/dl (6.4-8.2)
[2017-09-07 03:31] LABS: ALK PHOS 73 U/L (45-117)
--- NOTE | 2017-09-07 10:35 | EKG ---
Test Reason : Blood Pressure : / mmHG Vent. Rate : 166 BPM Atrial Rate : 077 BPM P-R Int : 000 ms QRS Dur : 102 ms QT Int : 294 ms P-R-T Axes : 000 -15 163 degrees QTc Int : 488 ms SUPRAVENTRICULAR TACHYCARDIA ABNORMAL ECG WHEN COMPARED WITH ECG OF 24-MAY-2017 09:25, RHYTHM CHANGE VENT. RATE HAS INCREASED BY 98 BPM Confirmed by NADIA COLLINS MD ([id number]) on 09/07/2017 10:35:02 AM Referred By: Confirmed By:NADIA COLLINS MD
--- NOTE | 2017-09-07 12:22 | CON.CARD ---
Consult - History of Present Illness History of Present Illness: The patient is a 72 year old female with past medical history of thoracic aortic aneurysm s/p repair, cerebral aneurysm s/p clipping, diabetes, HTN, CHF, afib, previous MIs/CAD s/p stents done at [facility] on 03/26 presents to the ED via EMS with SOB. Patient reports the AC at her residents wasnt working, and reports she didnt eat much. Patient reports she felt weak and sob, daughter called EMS immediately. As per the EMS, the patient had a HR of 189 upon arrival with a BP of 86/50. EMS was unable to access a IV line secondary to artery collapse. Patient has a BP of 70/30 @ bus, EMS tried 2 more times to access an IV, without success. Patient was placed on 83 jewels cardioverted, s/ p an HP was brought down to 160s and BP increased. Patient was given 10 mg of diltiazem at the ED, with relief noted. Denies dysuria, hematuria, frequency or urgency to urinate. Denies fever, chills , cough or a headache. Denies chest pain. Denies nausea or vomiting. Allergies: pregabalin [From Lyrica], budesonide [From Symbicort], celecoxib [ From Celebrex], formoterol fumarate, and sulfacetamide sodium. Social history: Former smoker. Denies the use of alcohol or recreational drugs. Surgical history: brain aneurysm clipping and cardiac stents PCP: Dr. Engle. Housekeeper: Dr. Elena Browning. ASHD promus stent pLAD 2008 PCI RCA 05/27/17 Atrial fibrillation 2016 CHF diastolic DM GERD HHD HTN Hyperlipidemia Morbid obesity Negative MIBI ST September 2011, March 2015 - History Source History Provided By: Patient, Medical Record - Past Medical History Cardio/Vascular: Yes: AFIB, CAD, CHF, HTN, Hyperlipdemia, Other (PSVT in 2011) Pulmonary: Yes: COPD, Sleep Apnea (risks for FRANSISCA) Renal/: Yes: Renal Inusuff Psych: Yes: Anxiety Endocrine: Yes: Diabetes Mellitus Additional Medical History: Condition Date Treating Physician Comments. ASHD promus stent pLAD 2008. CHF diastolic. DM. GERD. HHD. HTN. Hyperlipidemia. Morbid obesity. Negative MIBI ST September 2011 And May 2013. SVT - Past Surgical History Past Surgical History: Yes: Stent - Alcohol/Substance Use Hx Alcohol Use: No - Smoking History Smoking history: Never smoked Have you smoked in the past 12 months: No Aproximately how many cigarettes per day: 0 If you are a former smoker, when did you quit?: 40 yrs - Social History Usual Living Arrangement: Other (with nephew; her daughter is close to her) History of Recent Travel: No Home Medications - Allergies Allergies/Adverse Reactions: Allergies Allergy/AdvReac Type Severity Reaction Status Date / Time pregabalin [From Lyrica] Allergy Intermediate Verified 09/07/17 04:59 budesonide [From Symbicort] Allergy Verified 09/07/17 04:59 celecoxib [From Celebrex] Allergy Verified 09/07/17 04:59 formoterol fumarate Allergy Verified 09/07/17 04:59 [From Symbicort] sulfacetamide sodium Allergy Verified 09/07/17 04:59 [From Sulfamide] - Home Medications Home Medications: Ambulatory Orders Atorvastatin Ca [Lipitor] 40 mg PO HS tablet 11/12/15 Metoprolol Succinate [Toprol XL -] 50 mg PO DAILY tab.sr.24h 11/12/15 Ranitidine [Zantac -] 150 mg PO BID tablet 11/12/15 Sertraline HCl [Zoloft -] 25 mg PO DAILY tablet 11/12/15 metFORMIN HCL [Glucophage -] 500 mg PO BIDI tablet 11/12/15 Apixaban [Eliquis] 5 mg PO BID 12/22/15 Diltiazem Cd [Cardizem Cd -] 360 mg PO DAILY #60 cap.cd.24h 03/25/16 Furosemide [Lasix -] 40 mg PO DAILY 10/06/16 Aspirin Coated [Ecotrin -] 81 mg PO DAILY tablet.ec 05/22/17 Clopidogrel Bisulfate [Plavix -] 75 mg PO DAILY #30 tablet 05/22/17 Nystatin Powder [Nystop Powder -] 1 applic TP DAILY #1 applic 05/22/17 Review of Systems - Review of Systems Constitutional: reports: Malaise, Weakness Eyes: reports: No Symptoms HENT: reports: No Symptoms Neck: reports: No Symptoms Cardiovascular: reports: No Symptoms Gastrointestinal: reports: No Symptoms Genitourinary: reports: No Symptoms Breasts: reports: No Symptoms Reported Musculoskeletal: reports: No Symptoms Integumentary: reports: No Symptoms Neurological: reports: No Symptoms Endocrine: reports: No Symptoms Hematology/Lymphatic: reports: No Symptoms Psychiatric: reports: No Symptoms Vital Signs: Vital Signs Temperature 98.5 F 09/07/17 08:29 Pulse Rate 58 L 09/07/17 08:29 Respiratory Rate 22 09/07/17 08:29 Blood Pressure 108/67 09/07/17 08:29 O2 Sat by Pulse Oximetry (%) 99 09/07/17 08:29 Constitutional: Yes: Well Nourished, No Distress, Calm Eyes: Yes: WNL, Conjunctiva Clear, EOM Intact HENT: Yes: WNL, Atraumatic, Normocephalic Neck: Yes: WNL, Supple, Trachea Midline Respiratory: Yes: WNL, Regular, CTA Bilaterally Gastrointestinal: Yes: WNL, Normal Bowel Sounds Renal/: Yes: WNL Cardiovascular: Yes: WNL, Regular Rate and Rhythm Musculoskeletal: Yes: WNL Extremities: Yes: WNL Integumentary: Yes: WNL Neurological: Yes: WNL, Alert, Oriented ...Motor Strength: WNL Psychiatric: Yes: WNL, Alert, Oriented - Other Data Labs, Other Data: CBC, BMP 09/07/17 02:57 09/07/17 02:57 INR, PTT INR 0.99 (0.82-1.09) 09/07/17 02:57 Troponin, BNP 09/07/17 09/07/17 02:57 10:10 Troponin I < 0.02 0.06 H Troponin, BNP 09/07/17 09/07/17 02:57 10:10 Troponin I < 0.02 0.06 H Laboratory Tests 09/07/17 09/07/17 09/07/17 02:57 02:57 02:57 WBC 6.8 RBC 5.04 Hgb 15.1 Hct 45.6 H MCV 90.5 MCH 30.0 MCHC 33.1 RDW 14.1 Plt Count 222 MPV 8.2 Absolute Neuts (auto) 3.6 Neutrophils % 53.8 Lymphocytes % 32.3 D Monocytes % 10.8 H Eosinophils % 2.3 Basophils % 0.8 Nucleated RBC % 0 PT with INR 11.20 INR 0.99 PTT (Actin FS) 37.3 Sodium 141 Potassium 3.8 Chloride 106 Carbon Dioxide 26 Anion Gap 9 BUN 16 Creatinine 1.0 Creat Clearance w eGFR 54.35 Random Glucose 171 H Calcium 8.8 Total Bilirubin 0.5 AST 24 ALT 40 Alkaline Phosphatase 73 Creatine Kinase 54 Troponin I < 0.02 Total Protein 6.8 Albumin 3.2 L 09/07/17 10:10 WBC RBC Hgb Hct MCV MCH MCHC RDW Plt Count MPV Absolute Neuts (auto) Neutrophils % Lymphocytes % Monocytes % Eosinophils % Basophils % Nucleated RBC % PT with INR INR PTT (Actin FS) Sodium Potassium Chloride Carbon Dioxide Anion Gap BUN Creatinine Creat Clearance w eGFR Random Glucose Calcium Total Bilirubin AST ALT Alkaline Phosphatase Creatine Kinase 53 Troponin I 0.06 H Total Protein Albumin Imaging - Results Chest X-ray: Image Reviewed (no i/e) EKG: Image Reviewed (svt at 166) Problem List - Problems (1) Anxiety and depression Code(s): F41.8 - OTHER SPECIFIED ANXIETY DISORDERS (2) Asthma Code(s): J45.909 - UNSPECIFIED ASTHMA, UNCOMPLICATED (3) Atypical chest pain Code(s): R07.89 - OTHER CHEST PAIN (4) Chest pain Code(s): R07.9 - CHEST PAIN, UNSPECIFIED (5) COPD exacerbation Code(s): J44.1 - CHRONIC OBSTRUCTIVE PULMONARY DISEASE W (ACUTE) EXACERBATION (6) Coronary artery disease Code(s): I25.10 - ATHSCL HEART DISEASE OF [place] CORONARY ARTERY W/O ANG PCTRS (7) Diabetes Code(s): E11.9 - TYPE 2 DIABETES MELLITUS WITHOUT COMPLICATIONS Qualifiers: (8) Elevated troponin I level Code(s): R74.8 - ABNORMAL LEVELS OF OTHER SERUM ENZYMES (9) [place] cardiac risk >20% in next 10 years Code(s): Z91.89 - [facility] PERSONAL RISK FACTORS, NOT ELSEWHERE CLASSIFIED (10) History of cardioversion Code(s): Z98.890 - OTHER SPECIFIED POSTPROCEDURAL STATES (11) History of heart artery stent Code(s): Z95.5 - PRESENCE OF CORONARY ANGIOPLASTY IMPLANT AND GRAFT (12) HTN (hypertension), benign Code(s): I10 - ESSENTIAL (PRIMARY) HYPERTENSION (13) Hyperlipidemia Code(s): E78.5 - HYPERLIPIDEMIA, UNSPECIFIED (14) Hypokalemia Code(s): E87.6 - HYPOKALEMIA (15) Morbid obesity Code(s): E66.01 - MORBID (SEVERE) OBESITY DUE TO EXCESS CALORIES (16) Obesity Code(s): E66.9 - OBESITY, UNSPECIFIED (17) Paroxysmal atrial fibrillation Code(s): I48.0 - PAROXYSMAL ATRIAL FIBRILLATION (18) Paroxysmal SVT (supraventricular tachycardia) Code(s): I47.1 - SUPRAVENTRICULAR TACHYCARDIA (19) Sleep apnea Code(s): G47.30 - SLEEP APNEA, UNSPECIFIED (20) SVT (supraventricular tachycardia) Code(s): I47.1 - SUPRAVENTRICULAR TACHYCARDIA (21) UTI (urinary tract infection) Code(s): N39.0 - URINARY TRACT INFECTION, SITE NOT SPECIFIED Qualifiers: Urinary tract infection type: acute cystitis Hematuria presence: with hematuria Qualified Code(s): N30.01 - Acute cystitis with hematuria Assessment/Plan SVT s/p cardioversion by the ems due to lack of access and hypotension. Patient claims she was awake and felt "[place]". now in NSR ASHD promus stent pLAD 2008 PCI RCA 05/27/17 Atrial fibrillation 2016 CHF diastolic DM GERD HHD HTN Hyperlipidemia Morbid obesity Negative MIBI ST September 2011, March 2015 Plan telemetry diltiazem metoprolol ac EP evaluation re ablation serial CE and ekgs
--- NOTE | 2017-09-07 14:15 | HP ---
Admitting History and Physical - Primary Care Physician PCP: Yamilet Engle - Admission History of Present Illness: 72 year old female with past medical history of thoracic aortic aneurysm s/p repair, cerebral aneurysm s/p clipping, diabetes, HTN, CHF, afib, previous MIs/ CAD s/p stents done at [facility] on 03/26 presents to the ED via EMS with SOB. Patient reports the AC at her residents wasnt working, and reports she didnt eat much. Patient reports she felt weak and sob, daughter called EMS immediately. As per the EMS, the patient had a HR of 189 upon arrival with a BP of 86/50. EMS was unable to access a IV line secondary to artery collapse. Patient has a BP of 70/30 @ bus, EMS tried 2 more times to access an IV, without success. Patient was placed on 83 jewels cardioverted, s/p an HP was brought down to 160s and BP increased. Patient was given 10 mg of diltiazem at the ED, with relief noted. - Past Medical History Cardiovascular: Yes: AFIB, CAD, CHF, HTN, Hyperlipdemia, Other (PSVT in 2011) Pulmonary: Yes: COPD, Sleep Apnea (risks for FRANSISCA) Renal/: Yes: Renal Inusuff Psych: Yes: Anxiety Endocrine: Yes: Diabetes Mellitus - Past Surgical History Past Surgical History: Yes: Stent - Smoking History Smoking history: Never smoked Have you smoked in the past 12 months: No Aproximately how many cigarettes per day: 0 If you are a former smoker, when did you quit?: 40 yrs - Alcohol/Substance Use Hx Alcohol Use: No - Social History History of Recent Travel: No Home Medications - Allergies Allergies/Adverse Reactions: Allergies Allergy/AdvReac Type Severity Reaction Status Date / Time pregabalin [From Lyrica] Allergy Intermediate Verified 09/07/17 04:59 budesonide [From Symbicort] Allergy Verified 09/07/17 04:59 celecoxib [From Celebrex] Allergy Verified 09/07/17 04:59 formoterol fumarate Allergy Verified 09/07/17 04:59 [From Symbicort] sulfacetamide sodium Allergy Verified 09/07/17 04:59 [From Sulfamide] - Home Medications Home Medications: Ambulatory Orders Atorvastatin Ca [Lipitor] 40 mg PO HS tablet 11/12/15 Metoprolol Succinate [Toprol XL -] 50 mg PO DAILY tab.sr.24h 11/12/15 Ranitidine [Zantac -] 150 mg PO BID tablet 11/12/15 Sertraline HCl [Zoloft -] 25 mg PO DAILY tablet 11/12/15 metFORMIN HCL [Glucophage -] 500 mg PO BIDI tablet 11/12/15 Apixaban [Eliquis] 5 mg PO BID 12/22/15 Diltiazem Cd [Cardizem Cd -] 360 mg PO DAILY #60 cap.cd.24h 03/25/16 Furosemide [Lasix -] 40 mg PO DAILY 10/06/16 Aspirin Coated [Ecotrin -] 81 mg PO DAILY tablet.ec 05/22/17 Clopidogrel Bisulfate [Plavix -] 75 mg PO DAILY #30 tablet 05/22/17 Nystatin Powder [Nystop Powder -] 1 applic TP DAILY #1 applic 05/22/17 Physical Examination Vital Signs: Vital Signs Temperature 98.5 F 09/07/17 08:29 Pulse Rate 58 L 09/07/17 08:29 Respiratory Rate 22 09/07/17 08:29 Blood Pressure 108/67 09/07/17 08:29 O2 Sat by Pulse Oximetry (%) 99 09/07/17 08:29 Constitutional: Yes: No Distress HENT: Yes: Atraumatic Neck: Yes: Supple Cardiovascular: Yes: Regular Rate and Rhythm Respiratory: Yes: CTA Bilaterally Gastrointestinal: Yes: Normal Bowel Sounds Extremities: Yes: WNL Neurological: Yes: Alert, Oriented Labs: CBC, BMP 09/07/17 02:57 09/07/17 02:57 Problem List - Problems (1) Paroxysmal SVT (supraventricular tachycardia) Assessment/Plan: pt stable now on meds cardiology on board tele monitoring fu cardiac profile Code(s): I47.1 - SUPRAVENTRICULAR TACHYCARDIA (2) Asthma Assessment/Plan: stable Code(s): J45.909 - UNSPECIFIED ASTHMA, UNCOMPLICATED (3) COPD exacerbation Code(s): J44.1 - CHRONIC OBSTRUCTIVE PULMONARY DISEASE W (ACUTE) EXACERBATION (4) Coronary artery disease Assessment/Plan: continue current meds doing well Code(s): I25.10 - ATHSCL HEART DISEASE OF [place] CORONARY ARTERY W/O ANG PCTRS (5) Diabetes Assessment/Plan: on meds bgms Code(s): E11.9 - TYPE 2 DIABETES MELLITUS WITHOUT COMPLICATIONS Qualifiers: (6) HTN (hypertension), benign Code(s): I10 - ESSENTIAL (PRIMARY) HYPERTENSION (7) Hyperlipidemia Code(s): E78.5 - HYPERLIPIDEMIA, UNSPECIFIED Assessment/Plan Laboratory Tests 09/07/17 09/07/17 09/07/17 02:57 02:57 02:57 WBC 6.8 RBC 5.04 Hgb 15.1 Hct 45.6 H MCV 90.5 MCH 30.0 MCHC 33.1 RDW 14.1 Plt Count 222 MPV 8.2 Absolute Neuts (auto) 3.6 Neutrophils % 53.8 Lymphocytes % 32.3 D Monocytes % 10.8 H Eosinophils % 2.3 Basophils % 0.8 Nucleated RBC % 0 PT with INR 11.20 INR 0.99 PTT (Actin FS) 37.3 Sodium 141 Potassium 3.8 Chloride 106 Carbon Dioxide 26 Anion Gap 9 BUN 16 Creatinine 1.0 Creat Clearance w eGFR 54.35 Random Glucose 171 H Calcium 8.8 Total Bilirubin 0.5 AST 24 ALT 40 Alkaline Phosphatase 73 Creatine Kinase 54 Troponin I < 0.02 Total Protein 6.8 Albumin 3.2 L 09/07/17 10:10 WBC RBC Hgb Hct MCV MCH MCHC RDW Plt Count MPV Absolute Neuts (auto) Neutrophils % Lymphocytes % Monocytes % Eosinophils % Basophils % Nucleated RBC % PT with INR INR PTT (Actin FS) Sodium Potassium Chloride Carbon Dioxide Anion Gap BUN Creatinine Creat Clearance w eGFR Random Glucose Calcium Total Bilirubin AST ALT Alkaline Phosphatase Creatine Kinase 53 Troponin I 0.06 H Total Protein Albumin @ Active Medications Generic Name Dose Route Start Last Admin Trade Name Radha PRN Reason Stop Dose Admin Adenosine 6 mg 09/07/17 21:49 Adenocard - IVPUSH 09/07/17 21:50 ONCE ONE Apixaban 5 mg 09/07/17 22:00 09/07/17 21:15 Eliquis - PO 5 mg BID BRUCE Administration Aspirin 81 mg 09/07/17 14:15 09/07/17 15:07 Ecotrin - PO 81 mg DAILY BRUCE Administration Atorvastatin Calcium 40 mg 09/07/17 22:00 09/07/17 21:15 Lipitor - PO 40 mg HS BRUCE Administration Clopidogrel Bisulfate 75 mg 09/07/17 14:15 09/07/17 15:07 Plavix - PO 75 mg DAILY BRUCE Administration Diltiazem HCl 360 mg 09/07/17 14:15 09/07/17 16:39 Cardizem Cd - PO Not Given DAILY BRUCE Furosemide 40 mg 09/07/17 14:15 09/07/17 15:07 Lasix - PO 40 mg DAILY BRUCE Administration Metformin HCl 500 mg 09/07/17 16:30 09/07/17 16:48 Glucophage - PO 500 mg BIDI BRUCE Administration Metoprolol Succinate 50 mg 09/07/17 14:15 09/07/17 15:07 Toprol Xl - PO 50 mg DAILY BRUCE Administration Ranitidine HCl 150 mg 09/07/17 22:00 09/07/17 21:15 Zantac - PO 150 mg BID BRUCE Administration Sertraline HCl 25 mg 09/07/17 14:15 09/07/17 15:07 Zoloft - PO 25 mg DAILY BRUCE Administration
[2017-09-07] MEDS: ASPIRIN COATED 81 MG TABLET.EC PO SCH (15:07)
[2017-09-07] MEDS: CLOPIDOGREL BISULFATE 75 MG TABLET (FP) PO SCH (15:07)
[2017-09-07] MEDS: FUROSEMIDE 40 MG TABLET (FP) PO SCH (15:07)
[2017-09-07] MEDS: SERTRALINE HCL 25 MG TABLET (FP) PO SCH (15:07)
[2017-09-07] MEDS: metFORMIN HCL 500 MG TABLET (FP) PO SCH (16:48)
[2017-09-07] MEDS: APIXABAN 5 MG TABLET PO SCH (21:15)
[2017-09-07] MEDS: ATORVASTATIN CA 40 MG TABLET (FP) PO SCH (21:15)
[2017-09-07] MEDS: RANITIDINE HCL 150 MG TABLET (FP) PO SCH (21:15)
[2017-09-07] MEDS ORDERED: ADENOSINE 6 MG/2 ML VIAL IVPUSH ONE (21:49)
--- NOTE | 2017-09-07 21:58 | RAPID ---
Physical Examination Vital Signs: Vital Signs Temperature 98.2 F 09/07/17 17:00 Pulse Rate 60 09/07/17 17:00 Respiratory Rate 20 09/07/17 17:00 Blood Pressure 137/75 09/07/17 17:00 O2 Sat by Pulse Oximetry (%) 99 09/07/17 14:11 Labs: CBC, BMP 09/07/17 02:57 09/07/17 02:57 Rapid Response - Rapid Response Assessment: Responded for rapid response for patient with tachycardia of 159 nonresponsive to vagal maneuvers. Patient stated she felt lightheaded and dizzy. Initial BP upon arrival was 163/107. 12 lead ECG showed supraventricular tachycardia. 6mg adenosine was given. BP after administration was 154/103 with pulse of 73. ECG showed sinus rhythm with PVC Patient resting comfortably in no acute distress. Call placed to time cycle operator. Case discussed with on-call attending. Will continue to monitor.
[2017-09-07 22:33] LABS: BASO % 0.9 % (0-2.0); EOS % 2.9 % (0-4.5); HEMATOCRIT 42.8 % (32.4-45.2); HEMOGLOBIN 14.1 GM/dL (10.7-15.3); LYMPH % 27.9 % (8-40); MCH 29.7 pg (25.7-33.7); MCHC 33.1 g/dl (32.0-36.0); MEAN CELL VOLUME 89.7 fl (80-96); MEAN PLT VOLUME 7.9 fl (7.5-11.1); MONO % 11.4 % (3.8-10.2); NEUT % 56.9 % (42.8-82.8); PLATELET COUNT 227 K/MM3 (134-434); RBC 4.77 M/mm3 (3.60-5.2); RDW 14.2 % (11.6-15.6); WHITE BLOOD COUNT 5.4 K/mm3 (4.0-10.0)
[2017-09-07 22:59] LABS: ALBUMIN 3.2 g/dl (3.4-5.0); ANION GAP 8 (8-16); BILIRUBIN,TOTAL 0.4 mg/dL (0.2-1.0); BLOOD UREA NITROGEN 22 mg/dL (7-18); CALCIUM 8.3 mg/dL (8.5-10.1); CHLORIDE 107 mmol/L (98-107); CO2 26 mmol/L (21-32); CREATININE 1.1 mg/dL (0.55-1.02); GLUCOSE,RANDOM 155 mg/dL (74-106); MAGNESIUM 2.1 mg/dL (1.8-2.4); POTASSIUM 3.6 mmol/L (3.5-5.1); SGOT/AST 14 U/L (15-37); SODIUM 141 mmol/L (136-145); TOT PROT 6.6 g/dl (6.4-8.2)
[2017-09-07 23:05] LABS: ALK PHOS 69 U/L (45-117); SGPT/ALT 38 U/L (12-78)
[2017-09-08] MEDS: metFORMIN HCL 500 MG TABLET (FP) PO SCH ×2 (06:06→16:36)
[2017-09-08] MEDS: SERTRALINE HCL 25 MG TABLET (FP) PO SCH (09:49)
[2017-09-08] MEDS: FUROSEMIDE 40 MG TABLET (FP) PO SCH (09:49)
[2017-09-08] MEDS: CLOPIDOGREL BISULFATE 75 MG TABLET (FP) PO SCH (09:49)
[2017-09-08] MEDS: RANITIDINE HCL 150 MG TABLET (FP) PO SCH ×2 (09:49→20:59)
[2017-09-08] MEDS: ASPIRIN COATED 81 MG TABLET.EC PO SCH (09:49)
[2017-09-08] MEDS: APIXABAN 5 MG TABLET PO SCH ×2 (09:49→20:59)
--- NOTE | 2017-09-08 10:39 | PN ---
Progress Note, Physician Chief Complaint: Pt A&Ox3; walked to [facility]; no chest pain, SOB, or palpitations. History of Present Illness: Ms. Kan is a 72 year old white woman with past medical history of PAF, PSVT ( s/p ablation therapy in ? 2001 at [facility]), thoracic aortic aneurysm s/ p repair, cerebral aneurysm s/p clipping, diabetes, HTN, CHF, afib, previous MIs /CAD s/p stents done at [facility] on 03/26 presents to the ED via EMS with SOB. Patient reports the AC at her residents wasnt working, and reports she didnt eat much. Patient reports she felt weak and sob, daughter called EMS immediately. As per the EMS, the patient had a HR of 189 upon arrival with a BP of 86/50. EMS was unable to access a IV line secondary to artery collapse. Patient has a BP of 70/30 @ bus, EMS tried 2 more times to access an IV, without success. Patient was placed on 83 jewels cardioverted, s/p an HP was brought down to 160s and BP increased. Patient was given 10 mg of diltiazem at the ED, with relief noted. Denies dysuria, hematuria, frequency or urgency to urinate. Denies fever, chills , cough or a headache. Denies chest pain. Denies nausea or vomiting. Allergies: pregabalin [From Lyrica], budesonide [From Symbicort], celecoxib [ From Celebrex], formoterol fumarate, and sulfacetamide sodium. Social history: Former smoker. Denies the use of alcohol or recreational drugs. Surgical history: brain aneurysm clipping and cardiac stents PCP: Dr. Engle. Warp Splitter: Dr. Elena Browning. - Current Medication List Current Medications: Active Medications Apixaban (Eliquis -) 5 mg PO BID [facility] Last Admin: 09/08/17 09:49 Dose: 5 mg Aspirin (Ecotrin -) 81 mg PO DAILY [facility] Last Admin: 09/08/17 09:49 Dose: 81 mg Atorvastatin Calcium (Lipitor -) 40 mg PO HS [facility] Last Admin: 09/07/17 21:15 Dose: 40 mg Clopidogrel Bisulfate (Plavix -) 75 mg PO DAILY [facility] Last Admin: 09/08/17 09:49 Dose: 75 mg Diltiazem HCl (Cardizem Cd -) 360 mg PO DAILY [facility] Last Admin: 09/07/17 22:35 Dose: 360 mg Furosemide (Lasix -) 40 mg PO DAILY [facility] Last Admin: 09/08/17 09:49 Dose: 40 mg Metformin HCl (Glucophage -) 500 mg PO BIDI [facility] Last Admin: 09/08/17 06:06 Dose: 500 mg Metoprolol Succinate (Toprol Xl -) 75 mg PO Q12H [facility] Ranitidine HCl (Zantac -) 150 mg PO BID [facility] Last Admin: 09/08/17 09:49 Dose: 150 mg Sertraline HCl (Zoloft -) 25 mg PO DAILY [facility] Last Admin: 09/08/17 09:49 Dose: 25 mg - Objective Vital Signs: Vital Signs Temperature 97.7 F 09/08/17 07:34 Pulse Rate 52 L 09/08/17 07:34 Respiratory Rate 18 09/08/17 07:34 Blood Pressure 139/82 09/08/17 07:34 O2 Sat by Pulse Oximetry (%) 96 09/08/17 07:34 Constitutional: Yes: Anxious, Obese Eyes: Yes: WNL HENT: Yes: WNL Neck: Yes: WNL Cardiovascular: Yes: Bradycardia, S1, S2, S4 Respiratory: Yes: WNL Gastrointestinal: Yes: Soft ...Rectal Exam: Yes: Deferred Genitourinary: No: Anuria Breast(s): Yes: WNL Musculoskeletal: Yes: Joint Stiffness, Muscle Weakness Extremities: Yes: Cool Edema: No Peripheral Pulses WNL: Yes Integumentary: Yes: WNL Neurological: Yes: WNL Psychiatric: Yes: WNL Labs: CBC, BMP 09/07/17 22:00 09/07/17 22:00 INR, PTT INR 0.99 (0.82-1.09) 09/07/17 02:57 Abnormal Lab Results 09/07/17 09/07/17 22:00 22:00 Monocytes % 11.4 H BUN 22 H Creatinine 1.1 H Random Glucose 155 H Calcium 8.3 L AST 14 L Albumin 3.2 L - ....Imaging Chest X-ray: Image Reviewed (no acute pathology) Other: Image Reviewed (telemetry strip showing prolonged SVT last evening. Telemetry now: sinus bradycardia) Problem List - Problems (1) History of cardioversion Code(s): Z98.890 - OTHER SPECIFIED POSTPROCEDURAL STATES (2) Paroxysmal SVT (supraventricular tachycardia) Assessment/Plan: Pt had another episode of PSVT last night while she was resting. Continue diltiazem and metoprolol (will lower today's am dose in view of relatively low BP and HR). Will plan for EP evaluation for re-ablation; therapy. Keep K 4.0-4.5, Mg 2.0-2.3, PO4 2.5-3.5. TSH is WNL. TNI minimally increased; CK WNL. Addendum: Pt's case was discussed with Dr. Vitaly Hanna, black top machine operator, who has seen Ms. Kan in the past. Long-acting AV conduction blockers (metoprolol ER and diltiazem CD) will be stopped now in anticipation of ablation therapy later this week. Agents which do not affect the AV node, such as amlodipine, should be used if needed for blood pressure control. If pt develops SVT or AF again, IV adenosine (if SVT), IV diltiazem, IV metoprolol or esmolol, or short-acting PO metoprolol (tartrate) or diltiazem may be used. Apixaban should be continued, but stopped on the day of the procedure ( which is planned for this ). Continue ASA and clopidogrel (s/p drug-eluting stent earlier this year) Process for transferring pt to [facility] is underway; she will likely undergo evaluation and potential ablation in the [place] EP lab morning. Code(s): I47.1 - SUPRAVENTRICULAR TACHYCARDIA (3) Anxiety and depression Code(s): F41.8 - OTHER SPECIFIED ANXIETY DISORDERS (4) Atypical chest pain Code(s): R07.89 - OTHER CHEST PAIN (5) COPD exacerbation Code(s): J44.1 - CHRONIC OBSTRUCTIVE PULMONARY DISEASE W (ACUTE) EXACERBATION (6) Elevated troponin I level Code(s): R74.8 - ABNORMAL LEVELS OF OTHER SERUM ENZYMES (7) [place] cardiac risk >20% in next 10 years Assessment/Plan: s/p coronary stents, the latest (RCA) earlier this year. Code(s): Z91.89 - OTH PERSONAL RISK FACTORS, NOT ELSEWHERE CLASSIFIED (8) History of heart artery stent Code(s): Z95.5 - PRESENCE OF CORONARY ANGIOPLASTY IMPLANT AND GRAFT (9) Morbid obesity Code(s): E66.01 - MORBID (SEVERE) OBESITY DUE TO EXCESS CALORIES (10) Diabetes Code(s): E11.9 - TYPE 2 DIABETES MELLITUS WITHOUT COMPLICATIONS Qualifiers: (11) HTN (hypertension), benign Assessment/Plan: Please see under "paroxysmal SVT". Code(s): I10 - ESSENTIAL (PRIMARY) HYPERTENSION (12) Hyperlipidemia Assessment/Plan: elevated LDL cholesterol;on atorvastatin 40 mg daily (increase if necessary to bring LDL well below 100 mg/dL; consider adding Zetia). Code(s): E78.5 - HYPERLIPIDEMIA, UNSPECIFIED (13) Paroxysmal atrial fibrillation Assessment/Plan: see under "paroxysmal SVT". Code(s): I48.0 - PAROXYSMAL ATRIAL FIBRILLATION (14) Sleep apnea Code(s): G47.30 - SLEEP APNEA, UNSPECIFIED
[2017-09-08 11:31] LABS: POTASSIUM 4.3 mmol/L (3.5-5.1)
--- NOTE | 2017-09-08 12:34 | PN ---
Progress Note, Physician - Current Medication List Current Medications: Active Medications Apixaban (Eliquis -) 5 mg PO BID [facility] Last Admin: 09/08/17 09:49 Dose: 5 mg Aspirin (Ecotrin -) 81 mg PO DAILY [facility] Last Admin: 09/08/17 09:49 Dose: 81 mg Atorvastatin Calcium (Lipitor -) 40 mg PO HS [facility] Last Admin: 09/07/17 21:15 Dose: 40 mg Clopidogrel Bisulfate (Plavix -) 75 mg PO DAILY [facility] Last Admin: 09/08/17 09:49 Dose: 75 mg Diltiazem HCl (Cardizem Cd -) 360 mg PO DAILY [facility] Last Admin: 09/08/17 11:11 Dose: Not Given Furosemide (Lasix -) 40 mg PO DAILY [facility] Last Admin: 09/08/17 09:49 Dose: 40 mg Metformin HCl (Glucophage -) 500 mg PO BIDI [facility] Last Admin: 09/08/17 06:06 Dose: 500 mg Metoprolol Succinate (Toprol Xl -) 75 mg PO Q12H [facility] Last Admin: 09/08/17 11:12 Dose: Not Given Ranitidine HCl (Zantac -) 150 mg PO BID [facility] Last Admin: 09/08/17 09:49 Dose: 150 mg Sertraline HCl (Zoloft -) 25 mg PO DAILY [facility] Last Admin: 09/08/17 09:49 Dose: 25 mg - Objective Vital Signs: Vital Signs Temperature 97.7 F 09/08/17 07:34 Pulse Rate 52 L 09/08/17 07:34 Respiratory Rate 18 09/08/17 07:34 Blood Pressure 139/82 09/08/17 07:34 O2 Sat by Pulse Oximetry (%) 96 09/08/17 07:34 Constitutional: Yes: No Distress HENT: Yes: Atraumatic Neck: Yes: Supple Cardiovascular: Yes: Regular Rate and Rhythm Respiratory: Yes: CTA Bilaterally Gastrointestinal: Yes: Normal Bowel Sounds Extremities: Yes: WNL Peripheral Pulses WNL: Yes Neurological: Yes: Alert, Oriented Labs: CBC, BMP 09/07/17 22:00 09/08/17 06:15 INR, PTT INR 0.99 (0.82-1.09) 09/07/17 02:57 Problem List - Problems (1) Paroxysmal SVT (supraventricular tachycardia) Assessment/Plan: pt stable now on meds cardiology on board tele monitoring fu cardiac profile Code(s): I47.1 - SUPRAVENTRICULAR TACHYCARDIA (2) Asthma Assessment/Plan: stable Code(s): J45.909 - UNSPECIFIED ASTHMA, UNCOMPLICATED (3) COPD exacerbation Code(s): J44.1 - CHRONIC OBSTRUCTIVE PULMONARY DISEASE W (ACUTE) EXACERBATION (4) Coronary artery disease Assessment/Plan: continue current meds doing well Code(s): I25.10 - ATHSCL HEART DISEASE OF [place] CORONARY ARTERY W/O ANG PCTRS (5) Diabetes Code(s): E11.9 - TYPE 2 DIABETES MELLITUS WITHOUT COMPLICATIONS Qualifiers: (6) HTN (hypertension), benign Code(s): I10 - ESSENTIAL (PRIMARY) HYPERTENSION (7) Hyperlipidemia Code(s): E78.5 - HYPERLIPIDEMIA, UNSPECIFIED (8) History of cardioversion Assessment/Plan: was cardioverted in the field as no iv line and bp was low Code(s): Z98.890 - OTHER SPECIFIED POSTPROCEDURAL STATES (9) Anxiety and depression Code(s): F41.8 - OTHER SPECIFIED ANXIETY DISORDERS (10) Paroxysmal atrial fibrillation Assessment/Plan: on eliquis Code(s): I48.0 - PAROXYSMAL ATRIAL FIBRILLATION Assessment/Plan DR SHAIKH COVERIN FROM 09/09-09/13
--- NOTE | 2017-09-08 12:58 | EKG ---
Test Reason : Blood Pressure : / mmHG Vent. Rate : 074 BPM Atrial Rate : 074 BPM P-R Int : 134 ms QRS Dur : 080 ms QT Int : 336 ms P-R-T Axes : 058 -15 044 degrees QTc Int : 372 ms POOR DATA QUALITY, INTERPRETATION MAY BE ADVERSELY AFFECTED SINUS RHYTHM WITH PREMATURE ATRIAL COMPLEXES WITH ABERRANT CONDUCTION SEPTAL INFARCT , AGE UNDETERMINED ABNORMAL ECG Confirmed by MD TWAN, MIKE ([id number]) on 09/08/2017 12:58:17 PM Referred By: Confirmed By:MIKE TRENT MD
--- NOTE | 2017-09-08 12:59 | EKG ---
Test Reason : Blood Pressure : / mmHG Vent. Rate : 156 BPM Atrial Rate : 062 BPM P-R Int : 000 ms QRS Dur : 102 ms QT Int : 308 ms P-R-T Axes : 000 -17 180 degrees QTc Int : 496 ms SUPRAVENTRICULAR TACHYCARDIA MARKED ST ABNORMALITY, POSSIBLE INFEROLATERAL SUBENDOCARDIAL INJURY ABNORMAL ECG Confirmed by MD TWAN, MIKE ([id number]) on 09/08/2017 12:58:54 PM Referred By: Confirmed By:MIKE TRENT MD
[2017-09-08] MEDS: ATORVASTATIN CA 40 MG TABLET (FP) PO SCH (20:59)
[2017-09-09] MEDS: metFORMIN HCL 500 MG TABLET (FP) PO SCH ×2 (06:51→17:07)
--- NOTE | 2017-09-09 09:02 | PN ---
Progress Note, Physician History of Present Illness: The patient is a 72 year old female with past medical history of thoracic aortic aneurysm s/p repair, cerebral aneurysm s/p clipping, diabetes, HTN, CHF, afib, previous MIs/CAD s/p stents done at [facility] on 03/26 presents to the ED via EMS with SOB. Patient reports the AC at her residents wasnt working, and reports she didnt eat much. Patient reports she felt weak and sob, daughter called EMS immediately. As per the EMS, the patient had a HR of 189 upon arrival with a BP of 86/50. EMS was unable to access a IV line secondary to artery collapse. Patient has a BP of 70/30 @ bus, EMS tried 2 more times to access an IV, without success. Patient was placed on 83 jewels cardioverted, s/ p an HP was brought down to 160s and BP increased. Patient was given 10 mg of diltiazem at the ED, with relief noted. Denies dysuria, hematuria, frequency or urgency to urinate. Denies fever, chills , cough or a headache. Denies chest pain. Denies nausea or vomiting. Allergies: pregabalin [From Lyrica], budesonide [From Symbicort], celecoxib [ From Celebrex], formoterol fumarate, and sulfacetamide sodium. Social history: Former smoker. Denies the use of alcohol or recreational drugs. Surgical history: brain aneurysm clipping and cardiac stents PCP: Dr. Engle. Builder'S Labourer: Dr. Elena Browning. ASHD promus stent pLAD 2008 PCI RCA 05/27/17 Atrial fibrillation 2016 CHF diastolic DM GERD HHD HTN Hyperlipidemia Morbid obesity Negative MIBI ST September 2011, March 2015 - Current Medication List Current Medications: Active Medications Apixaban (Eliquis -) 5 mg PO BID [facility] Last Admin: 09/08/17 20:59 Dose: 5 mg Aspirin (Ecotrin -) 81 mg PO DAILY [facility] Last Admin: 09/08/17 09:49 Dose: 81 mg Atorvastatin Calcium (Lipitor -) 40 mg PO HS [facility] Last Admin: 09/08/17 20:59 Dose: 40 mg Clopidogrel Bisulfate (Plavix -) 75 mg PO DAILY [facility] Last Admin: 09/08/17 09:49 Dose: 75 mg Furosemide (Lasix -) 40 mg PO DAILY [facility] Last Admin: 09/08/17 09:49 Dose: 40 mg Metformin HCl (Glucophage -) 500 mg PO BIDI [facility] Last Admin: 09/09/17 06:51 Dose: 500 mg Ranitidine HCl (Zantac -) 150 mg PO BID [facility] Last Admin: 09/08/17 20:59 Dose: 150 mg Sertraline HCl (Zoloft -) 25 mg PO DAILY [facility] Last Admin: 09/08/17 09:49 Dose: 25 mg - Objective Vital Signs: Vital Signs Temperature 97.9 F 09/09/17 07:29 Pulse Rate 54 L 09/09/17 07:29 Respiratory Rate 18 09/09/17 07:31 Blood Pressure 162/79 09/09/17 07:29 O2 Sat by Pulse Oximetry (%) 95 09/09/17 07:31 Eyes: Yes: WNL, Conjunctiva Clear, EOM Intact HENT: Yes: WNL, Atraumatic, Normocephalic Neck: Yes: WNL, Supple, Trachea Midline Cardiovascular: Yes: WNL, Regular Rate and Rhythm Respiratory: Yes: WNL, Regular, CTA Bilaterally Gastrointestinal: Yes: WNL, Normal Bowel Sounds Genitourinary: Yes: WNL Musculoskeletal: Yes: WNL Extremities: Yes: WNL Edema: No Integumentary: Yes: WNL Neurological: Yes: WNL, Alert, Oriented ...Motor Strength: WNL Psychiatric: Yes: WNL Labs: CBC, BMP 09/07/17 22:00 09/08/17 06:15 INR, PTT INR 0.99 (0.82-1.09) 09/07/17 02:57 Problem List - Problems (1) Anxiety and depression Code(s): F41.8 - OTHER SPECIFIED ANXIETY DISORDERS (2) Asthma Code(s): J45.909 - UNSPECIFIED ASTHMA, UNCOMPLICATED (3) Atypical chest pain Code(s): R07.89 - OTHER CHEST PAIN (4) Chest pain Code(s): R07.9 - CHEST PAIN, UNSPECIFIED (5) COPD exacerbation Code(s): J44.1 - CHRONIC OBSTRUCTIVE PULMONARY DISEASE W (ACUTE) EXACERBATION (6) Coronary artery disease Code(s): I25.10 - ATHSCL HEART DISEASE OF [place] CORONARY ARTERY W/O ANG PCTRS (7) Diabetes Code(s): E11.9 - TYPE 2 DIABETES MELLITUS WITHOUT COMPLICATIONS Qualifiers: (8) Elevated troponin I level Code(s): R74.8 - ABNORMAL LEVELS OF OTHER SERUM ENZYMES (9) [place] cardiac risk >20% in next 10 years Code(s): Z91.89 - OTH PERSONAL RISK FACTORS, NOT ELSEWHERE CLASSIFIED (10) History of cardioversion Code(s): Z98.890 - OTHER SPECIFIED POSTPROCEDURAL STATES (11) History of heart artery stent Code(s): Z95.5 - PRESENCE OF CORONARY ANGIOPLASTY IMPLANT AND GRAFT (12) HTN (hypertension), benign Code(s): I10 - ESSENTIAL (PRIMARY) HYPERTENSION (13) Hyperlipidemia Code(s): E78.5 - HYPERLIPIDEMIA, UNSPECIFIED (14) Hypokalemia Code(s): E87.6 - HYPOKALEMIA (15) Morbid obesity Code(s): E66.01 - MORBID (SEVERE) OBESITY DUE TO EXCESS CALORIES (16) Obesity Code(s): E66.9 - OBESITY, UNSPECIFIED (17) Paroxysmal atrial fibrillation Code(s): I48.0 - PAROXYSMAL ATRIAL FIBRILLATION (18) Paroxysmal SVT (supraventricular tachycardia) Code(s): I47.1 - SUPRAVENTRICULAR TACHYCARDIA (19) Sleep apnea Code(s): G47.30 - SLEEP APNEA, UNSPECIFIED (20) SVT (supraventricular tachycardia) Code(s): I47.1 - SUPRAVENTRICULAR TACHYCARDIA (21) UTI (urinary tract infection) Code(s): N39.0 - URINARY TRACT INFECTION, SITE NOT SPECIFIED Qualifiers: Urinary tract infection type: acute cystitis Hematuria presence: with hematuria Qualified Code(s): N30.01 - Acute cystitis with hematuria Assessment/Plan - Problems (1) History of cardioversion Code(s): Z98.890 - OTHER SPECIFIED POSTPROCEDURAL STATES (2) Paroxysmal SVT (supraventricular tachycardia) Assessment/Plan: Pt had another episode of PSVT last night while she was resting. Continue diltiazem and metoprolol (will lower today's am dose in view of relatively low BP and HR). Will plan for EP evaluation for re-ablation; therapy. Keep K 4.0-4.5, Mg 2.0-2.3, PO4 2.5-3.5. TSH is WNL. TNI minimally increased; CK WNL. Addendum: Pt's case was discussed with Dr. Vitaly Hanna, inoculator, who has seen Ms. Kan in the past. Long-acting AV conduction blockers (metoprolol ER and diltiazem CD) will be stopped now in anticipation of ablation therapy later this week. Agents which do not affect the AV node, such as amlodipine, should be used if needed for blood pressure control. If pt develops SVT or AF again, IV adenosine (if SVT), IV diltiazem, IV metoprolol or esmolol, or short-acting PO metoprolol (tartrate) or diltiazem may be used. Apixaban should be continued, but stopped on the day of the procedure ( which is planned for this ). Continue ASA and clopidogrel (s/p drug-eluting stent earlier this year) Process for transferring pt to [facility] is underway; she will likely undergo evaluation and potential ablation in the [place] EP lab morning. Code(s): I47.1 - SUPRAVENTRICULAR TACHYCARDIA (3) Anxiety and depression Code(s): F41.8 - OTHER SPECIFIED ANXIETY DISORDERS (4) Atypical chest pain Code(s): R07.89 - OTHER CHEST PAIN (5) COPD exacerbation Code(s): J44.1 - CHRONIC OBSTRUCTIVE PULMONARY DISEASE W (ACUTE) EXACERBATION (6) Elevated troponin I level Code(s): R74.8 - ABNORMAL LEVELS OF OTHER SERUM ENZYMES (7) [place] cardiac risk >20% in next 10 years Assessment/Plan: s/p coronary stents, the latest (RCA) earlier this year. Code(s): Z91.89 - OT PERSONAL RISK FACTORS, NOT ELSEWHERE CLASSIFIED (8) History of heart artery stent Code(s): Z95.5 - PRESENCE OF CORONARY ANGIOPLASTY IMPLANT AND GRAFT (9) Morbid obesity Code(s): E66.01 - MORBID (SEVERE) OBESITY DUE TO EXCESS CALORIES (10) Diabetes Code(s): E11.9 - TYPE 2 DIABETES MELLITUS WITHOUT COMPLICATIONS Qualifiers: (11) HTN (hypertension), benign Assessment/Plan: Please see under "paroxysmal SVT". Code(s): I10 - ESSENTIAL (PRIMARY) HYPERTENSION (12) Hyperlipidemia Assessment/Plan: elevated LDL cholesterol;on atorvastatin 40 mg daily (increase if necessary to bring LDL well below 100 mg/dL; consider adding Zetia). Code(s): E78.5 - HYPERLIPIDEMIA, UNSPECIFIED (13) Paroxysmal atrial fibrillation Assessment/Plan: see under "paroxysmal SVT". Code(s): I48.0 - PAROXYSMAL ATRIAL FIBRILLATION (14) Sleep apnea Code(s): G47.30 - SLEEP APNEA, UNSPECIFIED
[2017-09-09] MEDS: APIXABAN 5 MG TABLET PO SCH ×2 (09:16→22:36)
[2017-09-09] MEDS: CLOPIDOGREL BISULFATE 75 MG TABLET (FP) PO SCH (09:16)
[2017-09-09] MEDS: FUROSEMIDE 40 MG TABLET (FP) PO SCH (09:16)
[2017-09-09] MEDS: SERTRALINE HCL 25 MG TABLET (FP) PO SCH (09:16)
[2017-09-09] MEDS: ASPIRIN COATED 81 MG TABLET.EC PO SCH (09:16)
[2017-09-09] MEDS: RANITIDINE HCL 150 MG TABLET (FP) PO SCH ×2 (09:16→22:36)
--- NOTE | 2017-09-09 15:49 | EKG ---
Test Reason : Blood Pressure : / mmHG Vent. Rate : 055 BPM Atrial Rate : 055 BPM P-R Int : 162 ms QRS Dur : 082 ms QT Int : 470 ms P-R-T Axes : 050 -24 002 degrees QTc Int : 449 ms SINUS BRADYCARDIA SEPTAL INFARCT (CITED ON OR BEFORE 07-SEP-2017) ABNORMAL ECG WHEN COMPARED WITH ECG OF 07-SEP-2017 21:48, ABERRANT CONDUCTION IS NO LONGER PRESENT NONSPECIFIC T WAVE ABNORMALITY, IMPROVED IN LATERAL LEADS QT HAS LENGTHENED Confirmed by FABIO DAVIS, BOBO ([id number]) on 09/09/2017 3:48:57 PM Referred By: Morteza HONG Confirmed By:BOBO MCCARTHY MD
[2017-09-09] MEDS: ATORVASTATIN CA 40 MG TABLET (FP) PO SCH (22:36)
--- NOTE | 2017-09-09 23:35 | PN ---
Progress Note, Physician - Current Medication List Current Medications: Active Medications Apixaban (Eliquis -) 5 mg PO BID [facility] Last Admin: 09/09/17 22:36 Dose: 5 mg Aspirin (Ecotrin -) 81 mg PO DAILY [facility] Last Admin: 09/09/17 09:16 Dose: 81 mg Atorvastatin Calcium (Lipitor -) 40 mg PO HS [facility] Last Admin: 09/09/17 22:36 Dose: 40 mg Clopidogrel Bisulfate (Plavix -) 75 mg PO DAILY [facility] Last Admin: 09/09/17 09:16 Dose: 75 mg Furosemide (Lasix -) 40 mg PO DAILY [facility] Last Admin: 09/09/17 09:16 Dose: 40 mg Metformin HCl (Glucophage -) 500 mg PO BIDI [facility] Last Admin: 09/09/17 17:07 Dose: 500 mg Ranitidine HCl (Zantac -) 150 mg PO BID [facility] Last Admin: 09/09/17 22:36 Dose: 150 mg Sertraline HCl (Zoloft -) 25 mg PO DAILY [facility] Last Admin: 09/09/17 09:16 Dose: 25 mg - Objective Vital Signs: Vital Signs Temperature 98.4 F 09/09/17 20:30 Pulse Rate 59 L 09/09/17 20:30 Respiratory Rate 16 09/09/17 20:30 Blood Pressure 123/66 09/09/17 20:30 O2 Sat by Pulse Oximetry (%) 95 09/09/17 19:33 Labs: CBC, BMP 09/07/17 22:00 09/08/17 06:15 INR, PTT INR 0.99 (0.82-1.09) 09/07/17 02:57
[2017-09-10] MEDS: metFORMIN HCL 500 MG TABLET (FP) PO SCH ×2 (07:03→17:20)
[2017-09-10] MEDS: RANITIDINE HCL 150 MG TABLET (FP) PO SCH ×2 (09:40→21:08)
[2017-09-10] MEDS: SERTRALINE HCL 25 MG TABLET (FP) PO SCH (09:40)
[2017-09-10] MEDS: APIXABAN 5 MG TABLET PO SCH ×2 (09:40→21:08)
[2017-09-10] MEDS: FUROSEMIDE 40 MG TABLET (FP) PO SCH (09:40)
[2017-09-10] MEDS: CLOPIDOGREL BISULFATE 75 MG TABLET (FP) PO SCH (09:40)
[2017-09-10] MEDS: ASPIRIN COATED 81 MG TABLET.EC PO SCH (09:41)
--- NOTE | 2017-09-10 11:34 | PN ---
Progress Note, Physician History of Present Illness: The patient is a 72 year old female with past medical history of thoracic aortic aneurysm s/p repair, cerebral aneurysm s/p clipping, diabetes, HTN, CHF, afib, previous MIs/CAD s/p stents done at [facility] on 03/26 presents to the ED via EMS with SOB. Patient reports the AC at her residents wasnt working, and reports she didnt eat much. Patient reports she felt weak and sob, daughter called EMS immediately. As per the EMS, the patient had a HR of 189 upon arrival with a BP of 86/50. EMS was unable to access a IV line secondary to artery collapse. Patient has a BP of 70/30 @ bus, EMS tried 2 more times to access an IV, without success. Patient was placed on 83 jewels cardioverted, s/ p an HP was brought down to 160s and BP increased. Patient was given 10 mg of diltiazem at the ED, with relief noted. Denies dysuria, hematuria, frequency or urgency to urinate. Denies fever, chills , cough or a headache. Denies chest pain. Denies nausea or vomiting. Allergies: pregabalin [From Lyrica], budesonide [From Symbicort], celecoxib [ From Celebrex], formoterol fumarate, and sulfacetamide sodium. Social history: Former smoker. Denies the use of alcohol or recreational drugs. Surgical history: brain aneurysm clipping and cardiac stents PCP: Dr. Engle. Gathering Machine Setter: Dr. Elena Browning. ASHD promus stent pLAD 2008 PCI RCA 05/27/17 Atrial fibrillation 2016 CHF diastolic DM GERD HHD HTN Hyperlipidemia Morbid obesity Negative MIBI ST September 2011, March 2015 - Current Medication List Current Medications: Active Medications Apixaban (Eliquis -) 5 mg PO BID [facility] Last Admin: 09/10/17 09:40 Dose: 5 mg Aspirin (Ecotrin -) 81 mg PO DAILY [facility] Last Admin: 09/10/17 09:41 Dose: 81 mg Atorvastatin Calcium (Lipitor -) 40 mg PO HS [facility] Last Admin: 09/09/17 22:36 Dose: 40 mg Clopidogrel Bisulfate (Plavix -) 75 mg PO DAILY [facility] Last Admin: 09/10/17 09:40 Dose: 75 mg Furosemide (Lasix -) 40 mg PO DAILY [facility] Last Admin: 09/10/17 09:40 Dose: 40 mg Metformin HCl (Glucophage -) 500 mg PO BIDI [facility] Last Admin: 09/10/17 07:03 Dose: 500 mg Ranitidine HCl (Zantac -) 150 mg PO BID [facility] Last Admin: 09/10/17 09:40 Dose: 150 mg Sertraline HCl (Zoloft -) 25 mg PO DAILY [facility] Last Admin: 09/10/17 09:40 Dose: 25 mg - Objective Vital Signs: Vital Signs Temperature 98.1 F 09/10/17 07:58 Pulse Rate 57 L 09/10/17 07:58 Respiratory Rate 16 09/10/17 08:02 Blood Pressure 139/90 09/10/17 07:58 O2 Sat by Pulse Oximetry (%) 96 09/10/17 08:02 Eyes: Yes: WNL, Conjunctiva Clear, EOM Intact HENT: Yes: WNL, Atraumatic, Normocephalic Neck: Yes: WNL, Supple, Trachea Midline Cardiovascular: Yes: WNL, Regular Rate and Rhythm Respiratory: Yes: WNL, Regular, CTA Bilaterally Gastrointestinal: Yes: WNL, Normal Bowel Sounds Genitourinary: Yes: WNL Musculoskeletal: Yes: WNL Extremities: Yes: WNL Edema: No Integumentary: Yes: WNL Neurological: Yes: WNL, Alert, Oriented ...Motor Strength: WNL Psychiatric: Yes: WNL Labs: CBC, BMP 09/07/17 22:00 09/08/17 06:15 INR, PTT INR 0.99 (0.82-1.09) 09/07/17 02:57 Problem List - Problems (1) Anxiety and depression Code(s): F41.8 - OTHER SPECIFIED ANXIETY DISORDERS (2) Asthma Code(s): J45.909 - UNSPECIFIED ASTHMA, UNCOMPLICATED (3) Atypical chest pain Code(s): R07.89 - OTHER CHEST PAIN (4) Chest pain Code(s): R07.9 - CHEST PAIN, UNSPECIFIED (5) COPD exacerbation Code(s): J44.1 - CHRONIC OBSTRUCTIVE PULMONARY DISEASE W (ACUTE) EXACERBATION (6) Coronary artery disease Code(s): I25.10 - ATHSCL HEART DISEASE OF [place] CORONARY ARTERY W/O ANG PCTRS (7) Diabetes Code(s): E11.9 - TYPE 2 DIABETES MELLITUS WITHOUT COMPLICATIONS Qualifiers: (8) Elevated troponin I level Code(s): R74.8 - ABNORMAL LEVELS OF OTHER SERUM ENZYMES (9) [place] cardiac risk >20% in next 10 years Code(s): Z91.89 - OTH PERSONAL RISK FACTORS, NOT ELSEWHERE CLASSIFIED (10) History of cardioversion Code(s): Z98.890 - OTHER SPECIFIED POSTPROCEDURAL STATES (11) History of heart artery stent Code(s): Z95.5 - PRESENCE OF CORONARY ANGIOPLASTY IMPLANT AND GRAFT (12) HTN (hypertension), benign Code(s): I10 - ESSENTIAL (PRIMARY) HYPERTENSION (13) Hyperlipidemia Code(s): E78.5 - HYPERLIPIDEMIA, UNSPECIFIED (14) Hypokalemia Code(s): E87.6 - HYPOKALEMIA (15) Morbid obesity Code(s): E66.01 - MORBID (SEVERE) OBESITY DUE TO EXCESS CALORIES (16) Obesity Code(s): E66.9 - OBESITY, UNSPECIFIED (17) Paroxysmal atrial fibrillation Code(s): I48.0 - PAROXYSMAL ATRIAL FIBRILLATION (18) Paroxysmal SVT (supraventricular tachycardia) Code(s): I47.1 - SUPRAVENTRICULAR TACHYCARDIA (19) Sleep apnea Code(s): G47.30 - SLEEP APNEA, UNSPECIFIED (20) SVT (supraventricular tachycardia) Code(s): I47.1 - SUPRAVENTRICULAR TACHYCARDIA (21) UTI (urinary tract infection) Code(s): N39.0 - URINARY TRACT INFECTION, SITE NOT SPECIFIED Qualifiers: Urinary tract infection type: acute cystitis Hematuria presence: with hematuria Qualified Code(s): N30.01 - Acute cystitis with hematuria Assessment/Plan - Problems (1) History of cardioversion Code(s): Z98.890 - OTHER SPECIFIED POSTPROCEDURAL STATES (2) Paroxysmal SVT (supraventricular tachycardia) Assessment/Plan: Pt had another episode of PSVT last night while she was resting. Continue diltiazem and metoprolol (will lower today's am dose in view of relatively low BP and HR). Will plan for EP evaluation for re-ablation; therapy. Keep K 4.0-4.5, Mg 2.0-2.3, PO4 2.5-3.5. TSH is WNL. TNI minimally increased; CK WNL. Addendum: Pt's case was discussed with Dr. Vitaly Hanna, paper machine tender, who has seen Ms. Kan in the past. Long-acting AV conduction blockers (metoprolol ER and diltiazem CD) will be stopped now in anticipation of ablation therapy later this week. Agents which do not affect the AV node, such as amlodipine, should be used if needed for blood pressure control. If pt develops SVT or AF again, IV adenosine (if SVT), IV diltiazem, IV metoprolol or esmolol, or short-acting PO metoprolol (tartrate) or diltiazem may be used. Apixaban should be continued, but stopped on the day of the procedure ( which is planned for this ). Continue ASA and clopidogrel (s/p drug-eluting stent earlier this year) Process for transferring pt to [facility] is underway; she will likely undergo evaluation and potential ablation in the [place] EP lab morning. Code(s): I47.1 - SUPRAVENTRICULAR TACHYCARDIA (3) Anxiety and depression Code(s): F41.8 - OTHER SPECIFIED ANXIETY DISORDERS (4) Atypical chest pain Code(s): R07.89 - OTHER CHEST PAIN (5) COPD exacerbation Code(s): J44.1 - CHRONIC OBSTRUCTIVE PULMONARY DISEASE W (ACUTE) EXACERBATION (6) Elevated troponin I level Code(s): R74.8 - ABNORMAL LEVELS OF OTHER SERUM ENZYMES (7) [place] cardiac risk >20% in next 10 years Assessment/Plan: s/p coronary stents, the latest (RCA) earlier this year. Code(s): Z91.89 - [place] PERSONAL RISK FACTORS, NOT ELSEWHERE CLASSIFIED (8) History of heart artery stent Code(s): Z95.5 - PRESENCE OF CORONARY ANGIOPLASTY IMPLANT AND GRAFT (9) Morbid obesity Code(s): E66.01 - MORBID (SEVERE) OBESITY DUE TO EXCESS CALORIES (10) Diabetes Code(s): E11.9 - TYPE 2 DIABETES MELLITUS WITHOUT COMPLICATIONS Qualifiers: (11) HTN (hypertension), benign Assessment/Plan: Please see under "paroxysmal SVT". Code(s): I10 - ESSENTIAL (PRIMARY) HYPERTENSION (12) Hyperlipidemia Assessment/Plan: elevated LDL cholesterol;on atorvastatin 40 mg daily (increase if necessary to bring LDL well below 100 mg/dL; consider adding Zetia). Code(s): E78.5 - HYPERLIPIDEMIA, UNSPECIFIED (13) Paroxysmal atrial fibrillation Assessment/Plan: see under "paroxysmal SVT". Code(s): I48.0 - PAROXYSMAL ATRIAL FIBRILLATION (14) Sleep apnea Code(s): G47.30 - SLEEP APNEA, UNSPECIFIED
[2017-09-10] MEDS: ATORVASTATIN CA 40 MG TABLET (FP) PO SCH (21:08)
--- NOTE | 2017-09-10 23:53 | PN ---
Progress Note, Physician - Current Medication List Current Medications: Active Medications Apixaban (Eliquis -) 5 mg PO BID [facility] Last Admin: 09/10/17 21:08 Dose: 5 mg Aspirin (Ecotrin -) 81 mg PO DAILY [facility] Last Admin: 09/10/17 09:41 Dose: 81 mg Atorvastatin Calcium (Lipitor -) 40 mg PO HS [facility] Last Admin: 09/10/17 21:08 Dose: 40 mg Clopidogrel Bisulfate (Plavix -) 75 mg PO DAILY [facility] Last Admin: 09/10/17 09:40 Dose: 75 mg Furosemide (Lasix -) 40 mg PO DAILY [facility] Last Admin: 09/10/17 09:40 Dose: 40 mg Metformin HCl (Glucophage -) 500 mg PO BIDI [facility] Last Admin: 09/10/17 17:20 Dose: 500 mg Ranitidine HCl (Zantac -) 150 mg PO BID [facility] Last Admin: 09/10/17 21:08 Dose: 150 mg Sertraline HCl (Zoloft -) 25 mg PO DAILY [facility] Last Admin: 09/10/17 09:40 Dose: 25 mg - Objective Vital Signs: Vital Signs Temperature 98.4 F 09/10/17 17:00 Pulse Rate 66 09/10/17 17:00 Respiratory Rate 20 09/10/17 17:00 Blood Pressure 117/78 09/10/17 17:00 O2 Sat by Pulse Oximetry (%) 96 09/10/17 08:02 Constitutional: Yes: Well Nourished Neck: Yes: WNL, Supple Cardiovascular: Yes: WNL, Regular Rate and Rhythm Respiratory: Yes: WNL, Regular, CTA Bilaterally Gastrointestinal: Yes: WNL, Normal Bowel Sounds, Soft, Abdomen, Obese Labs: CBC, BMP 09/07/17 22:00 09/08/17 06:15 INR, PTT INR 0.99 (0.82-1.09) 09/07/17 02:57 Problem List - Problems (1) Paroxysmal SVT (supraventricular tachycardia) Assessment/Plan: Awaiting transfer to [facility] for ablation Heart rate stable Code(s): I47.1 - SUPRAVENTRICULAR TACHYCARDIA (2) Chest pain Code(s): R07.9 - CHEST PAIN, UNSPECIFIED (3) Coronary artery disease Assessment/Plan: Cont plavix Code(s): I25.10 - ATHSCL HEART DISEASE OF [place] CORONARY ARTERY W/O ANG PCTRS (4) Morbid obesity Code(s): E66.01 - MORBID (SEVERE) OBESITY DUE TO EXCESS CALORIES (5) Diabetes Code(s): E11.9 - TYPE 2 DIABETES MELLITUS WITHOUT COMPLICATIONS Qualifiers: (6) HTN (hypertension), benign Code(s): I10 - ESSENTIAL (PRIMARY) HYPERTENSION (7) Hyperlipidemia Code(s): E78.5 - HYPERLIPIDEMIA, UNSPECIFIED
[2017-09-11 02:40] VITALS: TEMP 98.2
[2017-09-11] MEDS: metFORMIN HCL 500 MG TABLET (FP) PO SCH (06:37)
[2017-09-11 07:46] LABS: BASO % 0.8 % (0-2.0); EOS % 2.7 % (0-4.5); HEMATOCRIT 43.9 % (32.4-45.2); HEMOGLOBIN 14.8 GM/dL (10.7-15.3); LYMPH % 26.4 % (8-40); MCH 29.9 pg (25.7-33.7); MCHC 33.6 g/dl (32.0-36.0); MEAN PLT VOLUME 7.8 fl (7.5-11.1); MONO % 9.2 % (3.8-10.2); NEUT % 60.9 % (42.8-82.8); PLATELET COUNT 219 K/MM3 (134-434); RBC 4.94 M/mm3 (3.60-5.2); RDW 13.9 % (11.6-15.6); WHITE BLOOD COUNT 5.4 K/mm3 (4.0-10.0)
[2017-09-11 08:01] LABS: ALBUMIN 3.3 g/dl (3.4-5.0); ALK PHOS 63 U/L (45-117); ANION GAP 9 (8-16); BILIRUBIN,TOTAL 0.5 mg/dL (0.2-1.0); BLOOD UREA NITROGEN 21 mg/dL (7-18); CALCIUM 8.7 mg/dL (8.5-10.1); CHLORIDE 103 mmol/L (98-107); CO2 29 mmol/L (21-32); CREATININE 0.9 mg/dL (0.55-1.02); GLUCOSE,RANDOM 131 mg/dL (74-106); POTASSIUM 3.8 mmol/L (3.5-5.1); SGOT/AST 9 U/L (15-37); SGPT/ALT 23 U/L (12-78); SODIUM 141 mmol/L (136-145); TOT PROT 6.6 g/dl (6.4-8.2)
[2017-09-11 08:38] VITALS: BP 158/98; PULSE 88
[2017-09-11] MEDS: CLOPIDOGREL BISULFATE 75 MG TABLET (FP) PO SCH (10:13)
[2017-09-11] MEDS: ASPIRIN COATED 81 MG TABLET.EC PO SCH (10:13)
[2017-09-11] MEDS: SERTRALINE HCL 25 MG TABLET (FP) PO SCH (10:13)
[2017-09-11] MEDS: FUROSEMIDE 40 MG TABLET (FP) PO SCH (10:13)
[2017-09-11] MEDS: RANITIDINE HCL 150 MG TABLET (FP) PO SCH (10:13)
[2017-09-11] MEDS: APIXABAN 5 MG TABLET PO SCH (10:13)
--- NOTE | 2017-09-11 13:30 | PN ---
Progress Note, Physician History of Present Illness: The patient is a 72 year old female with past medical history of thoracic aortic aneurysm s/p repair, cerebral aneurysm s/p clipping, diabetes, HTN, CHF, afib, previous MIs/CAD s/p stents done at [facility] on 03/26 presents to the ED via EMS with SOB. Patient reports the AC at her residents wasnt working, and reports she didnt eat much. Patient reports she felt weak and sob, daughter called EMS immediately. As per the EMS, the patient had a HR of 189 upon arrival with a BP of 86/50. EMS was unable to access a IV line secondary to artery collapse. Patient has a BP of 70/30 @ bus, EMS tried 2 more times to access an IV, without success. Patient was placed on 83 jewels cardioverted, s/ p an HP was brought down to 160s and BP increased. Patient was given 10 mg of diltiazem at the ED, with relief noted. Denies dysuria, hematuria, frequency or urgency to urinate. Denies fever, chills , cough or a headache. Denies chest pain. Denies nausea or vomiting. Allergies: pregabalin [From Lyrica], budesonide [From Symbicort], celecoxib [ From Celebrex], formoterol fumarate, and sulfacetamide sodium. Social history: Former smoker. Denies the use of alcohol or recreational drugs. Surgical history: brain aneurysm clipping and cardiac stents PCP: Dr. Engle. Rag Inspector: Dr. Elena Browning. ASHD promus stent pLAD 2008 PCI RCA 05/27/17 Atrial fibrillation 2016 CHF diastolic DM GERD HHD HTN Hyperlipidemia Morbid obesity Negative MIBI ST September 2011, March 2015 - Current Medication List Current Medications: Active Medications Apixaban (Eliquis -) 5 mg PO BID [facility] Last Admin: 09/11/17 10:13 Dose: 5 mg Aspirin (Ecotrin -) 81 mg PO DAILY [facility] Last Admin: 09/11/17 10:13 Dose: 81 mg Atorvastatin Calcium (Lipitor -) 40 mg PO HS [facility] Last Admin: 09/10/17 21:08 Dose: 40 mg Clopidogrel Bisulfate (Plavix -) 75 mg PO DAILY [facility] Last Admin: 09/11/17 10:13 Dose: 75 mg Furosemide (Lasix -) 40 mg PO DAILY [facility] Last Admin: 09/11/17 10:13 Dose: 40 mg Metformin HCl (Glucophage -) 500 mg PO BIDI [facility] Last Admin: 09/11/17 06:37 Dose: Not Given Ranitidine HCl (Zantac -) 150 mg PO BID [facility] Last Admin: 09/11/17 10:13 Dose: 150 mg Sertraline HCl (Zoloft -) 25 mg PO DAILY [facility] Last Admin: 09/11/17 10:13 Dose: 25 mg - Objective Vital Signs: Vital Signs Temperature 98.2 F 09/11/17 02:39 Pulse Rate 88 09/11/17 08:37 Respiratory Rate 22 09/11/17 08:37 Blood Pressure 158/98 09/11/17 08:37 O2 Sat by Pulse Oximetry (%) 96 09/11/17 08:38 Eyes: Yes: WNL, Conjunctiva Clear, EOM Intact HENT: Yes: WNL, Atraumatic, Normocephalic Neck: Yes: WNL, Supple, Trachea Midline Cardiovascular: Yes: WNL, Regular Rate and Rhythm Respiratory: Yes: WNL, Regular, CTA Bilaterally Gastrointestinal: Yes: WNL, Normal Bowel Sounds Genitourinary: Yes: WNL Musculoskeletal: Yes: WNL Extremities: Yes: WNL Edema: No Integumentary: Yes: WNL Neurological: Yes: WNL, Alert, Oriented ...Motor Strength: WNL Psychiatric: Yes: WNL Labs: CBC, BMP 09/11/17 06:40 09/11/17 06:40 INR, PTT INR 0.99 (0.82-1.09) 09/07/17 02:57 Problem List - Problems (1) Anxiety and depression Code(s): F41.8 - OTHER SPECIFIED ANXIETY DISORDERS (2) Asthma Code(s): J45.909 - UNSPECIFIED ASTHMA, UNCOMPLICATED (3) Atypical chest pain Code(s): R07.89 - OTHER CHEST PAIN (4) Chest pain Code(s): R07.9 - CHEST PAIN, UNSPECIFIED (5) COPD exacerbation Code(s): J44.1 - CHRONIC OBSTRUCTIVE PULMONARY DISEASE W (ACUTE) EXACERBATION (6) Coronary artery disease Code(s): I25.10 - ATHSCL HEART DISEASE OF [place] CORONARY ARTERY W/O ANG PCTRS (7) Diabetes Code(s): E11.9 - TYPE 2 DIABETES MELLITUS WITHOUT COMPLICATIONS Qualifiers: (8) Elevated troponin I level Code(s): R74.8 - ABNORMAL LEVELS OF OTHER SERUM ENZYMES (9) [place] cardiac risk >20% in next 10 years Code(s): Z91.89 - [facility] PERSONAL RISK FACTORS, NOT ELSEWHERE CLASSIFIED (10) History of cardioversion Code(s): Z98.890 - OTHER SPECIFIED POSTPROCEDURAL STATES (11) History of heart artery stent Code(s): Z95.5 - PRESENCE OF CORONARY ANGIOPLASTY IMPLANT AND GRAFT (12) HTN (hypertension), benign Code(s): I10 - ESSENTIAL (PRIMARY) HYPERTENSION (13) Hyperlipidemia Code(s): E78.5 - HYPERLIPIDEMIA, UNSPECIFIED (14) Hypokalemia Code(s): E87.6 - HYPOKALEMIA (15) Morbid obesity Code(s): E66.01 - MORBID (SEVERE) OBESITY DUE TO EXCESS CALORIES (16) Obesity Code(s): E66.9 - OBESITY, UNSPECIFIED (17) Paroxysmal atrial fibrillation Code(s): I48.0 - PAROXYSMAL ATRIAL FIBRILLATION (18) Paroxysmal SVT (supraventricular tachycardia) Code(s): I47.1 - SUPRAVENTRICULAR TACHYCARDIA (19) Sleep apnea Code(s): G47.30 - SLEEP APNEA, UNSPECIFIED (20) SVT (supraventricular tachycardia) Code(s): I47.1 - SUPRAVENTRICULAR TACHYCARDIA (21) UTI (urinary tract infection) Code(s): N39.0 - URINARY TRACT INFECTION, SITE NOT SPECIFIED Qualifiers: Urinary tract infection type: acute cystitis Hematuria presence: with hematuria Qualified Code(s): N30.01 - Acute cystitis with hematuria Assessment/Plan - Problems (1) History of cardioversion Code(s): Z98.890 - OTHER SPECIFIED POSTPROCEDURAL STATES (2) Paroxysmal SVT (supraventricular tachycardia) Assessment/Plan: Pt had another episode of PSVT last night while she was resting. Continue diltiazem and metoprolol Will plan for EP evaluation for re-ablation; therapy d/w dr. Hanna - to be done as the outpatient. Keep K 4.0-4.5, Mg 2.0-2.3, PO4 2.5-3.5. TSH is WNL. TNI minimally increased; CK WNL. Addendum: Code(s): I47.1 - SUPRAVENTRICULAR TACHYCARDIA (3) Anxiety and depression Code(s): F41.8 - OTHER SPECIFIED ANXIETY DISORDERS (4) Atypical chest pain Code(s): R07.89 - OTHER CHEST PAIN (5) COPD exacerbation Code(s): J44.1 - CHRONIC OBSTRUCTIVE PULMONARY DISEASE W (ACUTE) EXACERBATION (6) Elevated troponin I level Code(s): R74.8 - ABNORMAL LEVELS OF OTHER SERUM ENZYMES (7) [place] cardiac risk >20% in next 10 years Assessment/Plan: s/p coronary stents, the latest (RCA) earlier this year. Code(s): Z91.89 - [facility] PERSONAL RISK FACTORS, NOT ELSEWHERE CLASSIFIED (8) History of heart artery stent Code(s): Z95.5 - PRESENCE OF CORONARY ANGIOPLASTY IMPLANT AND GRAFT (9) Morbid obesity Code(s): E66.01 - MORBID (SEVERE) OBESITY DUE TO EXCESS CALORIES (10) Diabetes Code(s): E11.9 - TYPE 2 DIABETES MELLITUS WITHOUT COMPLICATIONS Qualifiers: (11) HTN (hypertension), benign Assessment/Plan: Please see under "paroxysmal SVT". Code(s): I10 - ESSENTIAL (PRIMARY) HYPERTENSION (12) Hyperlipidemia Assessment/Plan: elevated LDL cholesterol;on atorvastatin 40 mg daily (increase if necessary to bring LDL well below 100 mg/dL; consider adding Zetia). Code(s): E78.5 - HYPERLIPIDEMIA, UNSPECIFIED (13) Paroxysmal atrial fibrillation Assessment/Plan: see under "paroxysmal SVT". Code(s): I48.0 - PAROXYSMAL ATRIAL FIBRILLATION (14) Sleep apnea Code(s): G47.30 - SLEEP APNEA, UNSPECIFIED
--- NOTE | 2017-09-14 20:56 | DS ---
Physical Examination Vital Signs: Vital Signs Temperature 98.2 F 09/11/17 02:39 Pulse Rate 88 09/11/17 08:37 Respiratory Rate 22 09/11/17 08:37 Blood Pressure 158/98 09/11/17 08:37 O2 Sat by Pulse Oximetry (%) 96 09/11/17 08:38 Labs: CBC, BMP 09/11/17 06:40 09/11/17 06:40 Discharge Summary Reason For Visit: CHEST PAIN HX OF CARDIOVERSION Condition: Good - Instructions Diet, Activity, Other Instructions: 2 gram sodium diet and [address] diet See Dr Dong or Dr Browning in 1 week for need for outpatient cardiac ablation See Dr Engle in 1 week Referrals: Yamilet Engle MD [Primary Care Provider] - Disposition: HOME - Home Medications Comprehensive Discharge Medication List: Ambulatory Orders Atorvastatin Ca [Lipitor] 40 mg PO HS tablet 11/12/15 Metoprolol Succinate [Toprol XL -] 50 mg PO DAILY tab.sr.24h 11/12/15 Ranitidine [Zantac -] 150 mg PO BID tablet 11/12/15 Sertraline HCl [Zoloft -] 25 mg PO DAILY tablet 11/12/15 metFORMIN HCL [Glucophage -] 500 mg PO BIDI tablet 11/12/15 Apixaban [Eliquis] 5 mg PO BID 12/22/15 Diltiazem Cd [Cardizem Cd -] 360 mg PO DAILY #60 cap.cd.24h 03/25/16 Furosemide [Lasix -] 40 mg PO DAILY 10/06/16 Aspirin Coated [Ecotrin -] 81 mg PO DAILY tablet.ec 05/22/17 Clopidogrel Bisulfate [Plavix -] 75 mg PO DAILY #30 tablet 05/22/17 Nystatin Powder [Nystop Powder -] 1 applic TP DAILY #1 applic 05/22/17 in home
== END 2017-09-11 15:23 | disposition home or self-care (01) | DRG 309 ==
LOC: JER 02:47 → JERBED 05:22 → INTOOBSV 05:22 → UNDOADMOB 05:22 → JERBED 05:54 → UNDOADMIN 05:54 → JERBED 06:08 → J4W 08:20 → OBSVTOIN 14:11 → J4W 14:11
PROVIDERS: ADMIT Internal Medicine; ATTEND Internal Medicine
DX: I47.1 Supraventricular tachycardia (principal); Z68.42 Body mass index [BMI] 45.0-49.9, adult; I50.32 Chronic diastolic (congestive) heart failure; N39.0 Urinary tract infection, site not specified; J44.1 Chronic obstructive pulmonary disease with (acute) exacerbation; E11.9 Type 2 diabetes mellitus without complications; I11.0 Hypertensive heart disease with heart failure; I48.91 Unspecified atrial fibrillation; E66.01 Morbid (severe) obesity due to excess calories; E87.6 Hypokalemia; I25.2 Old myocardial infarction; I25.10 Atherosclerotic heart disease of native coronary artery without angina pectoris; Z95.5 Presence of coronary angioplasty implant and graft; Z87.891 Personal history of nicotine dependence; J44.9 Chronic obstructive pulmonary disease, unspecified; Z79.84 Long term (current) use of oral hypoglycemic drugs; E78.5 Hyperlipidemia, unspecified; K21.9 Gastro-esophageal reflux disease without esophagitis; F41.8 Other specified anxiety disorders; F32.9 Major depressive disorder, single episode, unspecified
CPT/HCPCS: 36415; 71045-TC-FY; 80053; 82550; 82962; 83735; 84100; 84132; 84443; 84484; 85025; 85610; 85730; 93005; 93010; 93306-TC; 99282-25

== ENCOUNTER 2018-01-01 11:03 | Emergency (ER) | payer OTHER ==
[2018-01-01 11:15] VITALS: BP 149/89; PULSE 75; TEMP 97.7; BMI 49.0
--- NOTE | 2018-01-01 12:03 | PDOC ---
History of Present Illness - General Chief Complaint: Pain Stated Complaint: SHOULDER PAIN Time Seen by Provider: 01/01/18 11:26 History Source: Patient Exam Limitations: No Limitations - History of Present Illness Initial Comments: 01/01/18 11:58 Pt is a 72yo f with PMH of Afib, CAD s/p stent, thoracic aortic aneurysm s/p repair, cerebral aneurysm s/p clipping, DM, HTN, CHF presenting to ED with complaints of L shoulder and arm pain x2 days. Pt says pain is in L shoulder, sometimes radiates down to arm, has been getting progressively worse, constant pain with reduced ROM. Denies numbness/tingling, trauma, recent injuries. She does admit to sleeping on her left side. She denies chest pain, SOB, dizziness, headache, changes in vision, abdominal pain, n/v/d. Cane is used by her R arm. Never had pain like this before. Has been taking Tylenol but it does not help. She is on Eliquis. PMD: Oniel Hide Trimmer: Nam Gonsalvesm: Maureen PMH: see hpi PSH: see hpi Meds: see med rec Social: denies Allergies: Sulfa Past History - Past Medical History Allergies/Adverse Reactions: Allergies Allergy/AdvReac Type Severity Reaction Status Date / Time pregabalin [From Lyrica] Allergy Intermediate Verified 01/01/18 11:11 budesonide [From Symbicort] Allergy Verified 01/01/18 11:11 celecoxib [From Celebrex] Allergy Verified 01/01/18 11:11 formoterol fumarate Allergy Verified 01/01/18 11:11 [From Symbicort] sulfacetamide sodium Allergy Verified 01/01/18 11:11 [From Sulfamide] Home Medications: Ambulatory Orders Atorvastatin Ca [Lipitor] 40 mg PO HS tablet 11/12/15 Metoprolol Succinate [Toprol XL -] 50 mg PO DAILY tab.sr.24h 11/12/15 Ranitidine [Zantac -] 150 mg PO BID tablet 11/12/15 Sertraline HCl [Zoloft -] 25 mg PO DAILY tablet 11/12/15 metFORMIN HCL [Glucophage -] 500 mg PO BIDI tablet 11/12/15 Apixaban [Eliquis] 5 mg PO BID 12/22/15 Diltiazem Cd [Cardizem Cd -] 360 mg PO DAILY #60 cap.cd.24h 03/25/16 Furosemide [Lasix -] 40 mg PO DAILY 10/06/16 Aspirin Coated [Ecotrin -] 81 mg PO DAILY tablet.ec 05/22/17 Clopidogrel Bisulfate [Plavix -] 75 mg PO DAILY #30 tablet 05/22/17 Nystatin Powder [Nystop Powder -] 1 applic TP DAILY #1 applic 05/22/17 Anemia: No Asthma: Yes Cancer: No Cardiac Disorders: Yes (2009 STENT X1,, LINQ) 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) COPD: Yes CHF: No DVT: No Dementia: No Diabetes: Yes GI Disorders: Yes (UMBILICAL HERNIA) Disorders: No HTN: Yes Hypercholesterolemia: Yes Liver Disease: No Seizures: No Thyroid Disease: No - Surgical History Abdominal Surgery: No Appendectomy: No Cardiac Surgery: Yes (STENT X 1, LOOP RECORDER INSERTION) Cholecystectomy: No Lung Surgery: Yes (biopsy May 2013) Neurologic Surgery: Yes (brain aneurysm clipped) Orthopedic Surgery: No - Immunization History Td Vaccination: Yes Immunization Up to Date: Yes - Suicide/Smoking/Psychosocial Hx Smoking Status: Yes Smoking History: Former smoker Years of Tobacco Use: 0 Have you smoked in the past 12 months: No Number of Cigarettes Smoked Daily: 0 If you are a former smoker, when did you quit?: 40 yrs Cigars Per Day: 0 Information on smoking cessation initiated: No 'Breaking Loose' booklet given: 08/17/13 Hx Alcohol Use: No Drug/Substance Use Hx: No Substance Use Type: None Hx Substance Use Treatment: No Review of Systems - Review of Systems Constitutional: No: Symptoms Reported HEENTM: No: Symptoms Reported Respiratory: No: Symptoms reported, Cough, Shortness of Breath Cardiac (ROS): No: Chest Pain, Lightheadedness, Palpitations, Syncope, Chest Tightness ABD/GI: No: Symptoms Reported : No: Symptoms Reported Musculoskeletal: Yes: See HPI, Joint Pain (L shoulder), Muscle Pain (L arm). No : Neck Pain Integumentary: No: Lesions, Lumps, Rash Neurological: No: Headache, Numbness, Tingling, Weakness *Physical Exam - Vital Signs Last Vital Signs Temp Pulse Resp BP Pulse Ox 97.7 F 75 18 149/89 96 01/01/18 11:13 01/01/18 11:13 01/01/18 11:13 01/01/18 11:13 01/01/18 11:13 - Physical Exam General Appearance: Yes: Nourished, Appropriately Dressed. No: Apparent Distress HEENT: positive: EOMI, ELEANOR. negative: Scleral Icterus (R), Scleral Icterus (L) Neck: positive: Trachea midline, Supple. negative: Carotid bruit, Lymphadenopathy (R), Lymphadenopathy (L) Respiratory/Chest: positive: Lungs Clear, Normal Breath Sounds. negative: Crackles, Rales, Rhonchi, Stridor, Wheezing Cardiovascular: positive: Regular Rhythm, Regular Rate, S1, S2. negative: Edema , JVD, Murmur Vascular Pulses: Carotid (R): 2+, Carotid (L): 2+, Dorsalis-Pedis (R): 2+, Doralis-Pedis (L): 2+ Gastrointestinal/Abdominal: positive: Normal Bowel Sounds, Soft. negative: Tender Musculoskeletal: positive: Decreased Range of Motion (L arm), Other (Tender to palpation in L shoulder, illiciting spasms. ). negative: Vertebral Tenderness Extremity: positive: Normal Capillary Refill. negative: Coldness, Cyanosis, Pedal Edema, Swelling, Calf Tenderness Integumentary: positive: Normal Color, Dry, Warm. negative: Rash, Swelling Neurologic: positive: art handler II-XII NML intact, Fully Oriented, Alert, Normal Mood/ Affect, Normal Response. negative: Motor Strength 5/5 (L upper arm strength decreased. ) Medical Decision Making - Medical Decision Making 01/01/18 12:48 Pt is a 72yo f with PMH of Afib, CAD s/p stent, thoracic aortic aneurysm s/p repair, cerebral aneurysm s/p clipping, DM, HTN, CHF presenting to ED with complaints of L shoulder and arm pain x2 days. Vitals: wnl PE: L shoulder, trapezius and deltoid tenderness, reduced ROM, reduced upper arm strength compared to right. full sensation. DDx: fracture v. dislocation v. arthritis v. rhabdo v. tendonitis Low suspicon for rhabdo, fracture and dislocation given pt did not injure shoulder and no trauma. Will order xray, give tylenol and ibuprofen. Xray negative for fracture/dislocation. showed arthritic changes. Pt reported feeling better with meds, she was actively using L arm. Can be dc home. pt given pain management advice and ortho follow up. pt agreed. *DC/Admit/Observation/Transfer Diagnosis at time of Disposition: Shoulder pain, acute Qualifiers: Laterality: left Qualified Code(s): M25.512 - Pain in left shoulder - Discharge Dispostion Disposition: HOME Condition at time of disposition: Good Decision to Admit order: No - Referrals Referrals: Yamilet Engle MD [Primary Care Provider] - Lobo Uriostegui MD [Staff Physician] - - Patient Instructions Printed Discharge Instructions: DI for Shoulder Pain Additional Instructions: You were seen here today for shoulder pain. The xray did not show fracture. I suggest continuing to take Tylenol for pain. You can add ibuprofen as well. You can take an extra strength Tylenol (500mg) as needed for pain. If that does not help, you can add 400mg ibuprofen. I also recommend making an appointment with orthopedics for further evaluation and management of your pain. Dr. Uriostegui: Come back to the emergency room if: pain gets worse, you are unable to move your arm, you lose sensation in your arm, you have chest pain or if any new concerning symptom develops. Thank you - Post Discharge Activity
--- NOTE | 2018-01-01 12:23 | PDOC ---
Attending Attestation - HPI HPI: 01/01/18 13:06 The patient is a 72-year-old female with past medical history significant for CAD s/p stenting (x1 2008), thoracic aortic aneurysm s/p repair, cerebral aneurysm s/p clipping, DM, HTN, Afib (on eliquis), DM and CHF presents to the emergency department with L. shoulder pain for the past 3 days. The patient is unsure of the etiology of the pain; she reports a constant localized pain to the L. shoulder, thats reproducible with lifting the arm, no relief with Tylenol. The patient reports about 10-15 years prior she suffered a fall s/p L. shoulder fracture. The patient reports following she had full ROM, denies any surgery. The patient reports at baseline she ambulated with a walker secondary to an unsteady gait. Denies numbness, tingling, trauma or injury to the arm, prior similar pain, chest pain, shortness of breath, nausea, vomiting, fever, excessive sweating, neck/back pain. Denies R. arm pain, leg swelling, heavy lifting, recent falls. The patient reports shes currently on a water pill for the past 3 days, by PCP request secondary to fluid overload around the kidneys. Allergies: Pregabalin (from Lyrica), Budesonide (from Symbicort), Celecoxib( from Celebrex), formoterol fumarate (from symbicort), sulfacetamide sodium ( from sulfamide) Social history: Prior use of tobacco (quit about 41 years ago). No past or present use of alcohol, prescription abuse or recreational drug use. Surgical history: Lung biopsy (2014), Stent x1, aneurysm clipping/repair. PCP: Dr. Engle Accounts Executive: Dr. Browning Orthopedic Shoe Maker: Dr. Monet - Medical Decision Making 01/01/18 13:06 Documentation prepared by Sydni De León, acting as medical detailist for Raz Davenport MD. <Sydni De León - Last Filed: 01/01/18 13:06> - Resident Resident Name: Virginia Butler - ED Attending Attestation I have performed the following: I have examined & evaluated the patient, The case was reviewed & discussed with the resident, I agree w/resident's findings & plan, Exceptions are as noted - Physicial Exam PE: 01/01/18 12:59 GENERAL: The patient is awake, alert, and fully oriented, Nontoxic - in no acute distress. HEAD: Normocephalic, atraumatic. EYES: extraocular movements intact, sclera anicteric, conjunctiva clear. ENT: Normal voice, Moist mucous membranes. NECK: Normal range of motion, supple, no focal midline cervical or thoracic tenderness LUNGS: Breath sounds equal, clear to auscultation bilaterally. No wheezes, no rhonchi, no rales. HEART: Regular rate and rhythm, normal S1 and S2 without murmur, rub or gallop. EXTREMITIES: Normal range of motion, trace edema. +ttp to insertion point of pectoralis major, no rashes present, NEUROLOGICAL: No facial assymetry, Normal speech, sensation intact, symmetric certified prosthetist/orthotist strength PSYCH: Normal mood, normal affect. SKIN: Warm, Dry, normal turgor, - Medical Decision Making 01/01/18 12:56 72y F presents with 3 days of gradually worsening L shoulder pain. Pain is worse when she abducts her L shoulder, pain is worse on the anterior shoulder. no falls/injuries/traumas. prior history of shoulder fx that healed 15 yrs ago and has been relatively asymptomatic since. no cp, sob, palpitations, nv diarphoesis, neck pain, numbness/tingling/weakness. on exam pt in no distress at rest +ttp to anterior L shoulder (speficially at insertion of the pectoralis major) and pain reproduced on shoulder abduction suspect msk shoulder pain - ?arhtritis, shoulder spasm will obtain xra ekg done in [facility] no clinical suspicion of cardiac disease 01/01/18 14:22 xray cw arhtirits no fx pt feeling better with tylenol motrin will dc with pmd fu return precutions were discussed 01/01/18 16:15 A portion of this note was documented by scribe services under my direction. I have reviewed the details of the note, within reason, and agree with the documentation with the following case summary and management plan written by me 01/02/18 09:58 <Raz Davenport - Last Filed: 01/02/18 09:58> Heart Score/ECG Review - ECG Impressions Comment:: 01/01/18 13:00 Twelve-lead EKG was performed and reviewed by me. There is normal sinus rhythm with a normal rate. rate of 66 The intervals are normal. nonspecific ST wa vehcnages <Raz Davenport - Last Filed: 01/02/18 09:58>
[2018-01-01] MEDS ORDERED: IBUPROFEN 600 MG TABLET (FP) PO ONE ×2 (12:26→12:48)
[2018-01-01] MEDS ORDERED: ACETAMINOPHEN 500 MG TABLET (FP) PO ONE (12:32)
[2018-01-01] MEDS ORDERED: ACETAMINOPHEN 325 MG TABLET (FP) PO ONE (12:47)
[2018-01-01] MEDS ORDERED: ACETAMINOPHEN 325 MG TABLET (FP) ONE (12:48)
--- NOTE | 2018-01-02 15:04 | EKG ---
Test Reason : Blood Pressure : / mmHG Vent. Rate : 066 BPM Atrial Rate : 066 BPM P-R Int : 136 ms QRS Dur : 076 ms QT Int : 430 ms P-R-T Axes : 043 -05 090 degrees QTc Int : 450 ms POOR DATA QUALITY, INTERPRETATION MAY BE ADVERSELY AFFECTED NORMAL SINUS RHYTHM WITH SINUS ARRHYTHMIA NONSPECIFIC ST ABNORMALITY ABNORMAL ECG WHEN COMPARED WITH ECG OF 09-SEP-2017 09:29, NONSPECIFIC T WAVE ABNORMALITY NO LONGER EVIDENT IN INFERIOR LEADS Confirmed by MD Ladarius, Joel ([id number]) on 01/02/2018 3:04:28 PM Referred By: Confirmed By:Joel Durand MD
== END 2018-01-01 16:46 | disposition home or self-care (01) ==
LOC: JER 11:03
DX: M25.512 Pain in left shoulder (principal); I48.91 Unspecified atrial fibrillation; I25.10 Atherosclerotic heart disease of native coronary artery without angina pectoris; Z95.5 Presence of coronary angioplasty implant and graft
CPT/HCPCS: 73030-TC-LT-FY; 93005; 93010; 99282-25

== ENCOUNTER 2018-03-29 21:53 | Emergency (ER) | payer MEDICARE ==
--- NOTE | 2018-03-29 22:09 | PDOC ---
History of Present Illness - General Chief Complaint: Chest Pain Stated Complaint: CHEST PAIN Time Seen by Provider: 03/29/18 22:09 Past History - Past Medical History Allergies/Adverse Reactions: Allergies Allergy/AdvReac Type Severity Reaction Status Date / Time pregabalin [From Lyrica] Allergy Intermediate Verified 01/01/18 11:11 budesonide [From Symbicort] Allergy Verified 01/01/18 11:11 celecoxib [From Celebrex] Allergy Verified 01/01/18 11:11 formoterol fumarate Allergy Verified 01/01/18 11:11 [From Symbicort] sulfacetamide sodium Allergy Verified 01/01/18 11:11 [From Sulfamide] Home Medications: Ambulatory Orders Atorvastatin Ca [Lipitor] 40 mg PO HS tablet 11/12/15 Metoprolol Succinate [Toprol XL -] 50 mg PO DAILY tab.sr.24h 11/12/15 Ranitidine [Zantac -] 150 mg PO BID tablet 11/12/15 Sertraline HCl [Zoloft -] 25 mg PO DAILY tablet 11/12/15 metFORMIN HCL [Glucophage -] 500 mg PO BIDI tablet 11/12/15 Apixaban [Eliquis] 5 mg PO BID 12/22/15 Diltiazem Cd [Cardizem Cd -] 360 mg PO DAILY #60 cap.cd.24h 03/25/16 Furosemide [Lasix -] 40 mg PO DAILY 10/06/16 Aspirin Coated [Ecotrin -] 81 mg PO DAILY tablet.ec 05/22/17 Clopidogrel Bisulfate [Plavix -] 75 mg PO DAILY #30 tablet 05/22/17 Nystatin Powder [Nystop Powder -] 1 applic TP DAILY #1 applic 05/22/17 Anemia: No Asthma: Yes Cancer: No Cardiac Disorders: Yes (2009 STENT X1,, LINQ) 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) COPD: Yes CHF: No DVT: No Dementia: No Diabetes: Yes GI Disorders: Yes (UMBILICAL HERNIA) Disorders: No HTN: Yes Hypercholesterolemia: Yes Liver Disease: No Seizures: No Thyroid Disease: No - Surgical History Abdominal Surgery: No Appendectomy: No Cardiac Surgery: Yes (STENT X 1, LOOP RECORDER INSERTION) Cholecystectomy: No Lung Surgery: Yes (biopsy May 2013) Neurologic Surgery: Yes (brain aneurysm clipped) Orthopedic Surgery: No - Immunization History Td Vaccination: Yes Immunization Up to Date: Yes - Suicide/Smoking/Psychosocial Hx Smoking Status: Yes Smoking History: Former smoker Years of Tobacco Use: 0 Have you smoked in the past 12 months: No Number of Cigarettes Smoked Daily: 0 If you are a former smoker, when did you quit?: 40 yrs Cigars Per Day: 0 'Breaking Loose' booklet given: 08/17/13 Hx Alcohol Use: No Drug/Substance Use Hx: No Substance Use Type: None Hx Substance Use Treatment: No *DC/Admit/Observation/Transfer - Discharge Dispostion Condition at time of disposition: Fair - Referrals - Patient Instructions - Post Discharge Activity
[2018-03-29 22:13] VITALS: BMI 49.4
--- NOTE | 2018-03-29 22:24 | PDOC ---
History of Present Illness - General Chief Complaint: Chest Pain Stated Complaint: CHEST PAIN Time Seen by Provider: 03/29/18 22:09 - History of Present Illness Initial Comments: Valencia Kan is a 72yo woman with a PMH of CAD s/p stent (x1 2008), CHF, thoracic aortic aneurysm s/p repair, cerebral aneurysm s/p clipping, DM, HTN, Afib (on eliquis), DM, COPD, and obesity who presents with mid-sternal chest pain for several minutes at home this evening. She reports that her nephew was over at her house, and she has been very anxious and had a high level of stress recently regarding her nephew. She was arguing with him tonight when she started to have sharp, 7/10, non-radiating, sternal chest pain. She reports that the pain resolved after a few minutes without any intervention, but her daughter was concerned and called an ambulance. Ms Kan denies any lightheadedness, nausea/vomiting, diaphoresis, or significant SOB along with the pain. She does not some SOB at baseline, but she has an inhaler; her breathing has not changed recently. Ms Kan reports that she takes all of her medications as prescribed, and she has not missed any doses recently. She has been feeling well until the pain tonight. She says that she has had similar pain in the past, and she states that she feels this happens whenever she becomes anxious. She reports that she has been seen for the same symptoms in the past and was told that she should try to avoid stress. Past History - Past Medical History Allergies/Adverse Reactions: Allergies Allergy/AdvReac Type Severity Reaction Status Date / Time pregabalin [From Lyrica] Allergy Intermediate Verified 03/29/18 22:13 budesonide [From Symbicort] Allergy Verified 03/29/18 22:13 celecoxib [From Celebrex] Allergy Verified 03/29/18 22:13 formoterol fumarate Allergy Verified 03/29/18 22:13 [From Symbicort] sulfacetamide sodium Allergy Verified 03/29/18 22:13 [From Sulfamide] Home Medications: Ambulatory Orders Atorvastatin Ca [Lipitor] 40 mg PO HS tablet 11/12/15 Metoprolol Succinate [Toprol XL -] 50 mg PO DAILY tab.sr.24h 11/12/15 Ranitidine [Zantac -] 150 mg PO BID tablet 11/12/15 Sertraline HCl [Zoloft -] 25 mg PO DAILY tablet 11/12/15 metFORMIN HCL [Glucophage -] 500 mg PO BIDI tablet 11/12/15 Apixaban [Eliquis] 5 mg PO BID 12/22/15 Diltiazem Cd [Cardizem Cd -] 360 mg PO DAILY #60 cap.cd.24h 03/25/16 Furosemide [Lasix -] 40 mg PO DAILY 10/06/16 Aspirin Coated [Ecotrin -] 81 mg PO DAILY tablet.ec 05/22/17 Clopidogrel Bisulfate [Plavix -] 75 mg PO DAILY #30 tablet 05/22/17 Nystatin Powder [Nystop Powder -] 1 applic TP DAILY #1 applic 05/22/17 Anemia: No Asthma: Yes Cancer: No Cardiac Disorders: Yes (2009 STENT X1,, LINQ) 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) COPD: Yes CHF: No DVT: No Dementia: No Diabetes: Yes GI Disorders: Yes (UMBILICAL HERNIA) Disorders: No HTN: Yes Hypercholesterolemia: Yes Liver Disease: No Seizures: No Thyroid Disease: No - Surgical History Abdominal Surgery: No Appendectomy: No Cardiac Surgery: Yes (STENT X 1, LOOP RECORDER INSERTION) Cholecystectomy: No Lung Surgery: Yes (biopsy May 2013) Neurologic Surgery: Yes (brain aneurysm clipped) Orthopedic Surgery: No - Immunization History Td Vaccination: Yes Immunization Up to Date: Yes - Suicide/Smoking/Psychosocial Hx Smoking Status: Yes Smoking History: Never smoked Years of Tobacco Use: 0 Have you smoked in the past 12 months: No Number of Cigarettes Smoked Daily: 0 If you are a former smoker, when did you quit?: 40 yrs Cigars Per Day: 0 Information on smoking cessation initiated: No 'Breaking Loose' booklet given: 08/17/13 Hx Alcohol Use: No Drug/Substance Use Hx: No Substance Use Type: None Hx Substance Use Treatment: No Cardiac Specific PMH - Complaint Specific PMHX Cardiac Arrhythmia: Yes (a-fib, h/o RVR) Cardiac Stent: Yes Pacemaker: No (loop recorder about 4 years ago) Other History: Thoracic aortic aneurysm Review of Systems - Review of Systems Comments:: General: No fevers, no chills, no weight or appetite change, no malaise HEENT: No changes in vision, no changes in hearing, no congestion, no sore throat CV: See HPI. No LE edema recently. Pulm: No SOB, no cough, no wheezing GI: No nausea or vomiting, no change in bowel habits, no melena : No frequency, no urgency, no dysuria Musc: No back pain, no joint swelling, no recent injury Skin: No rash, no lesions, no erythema Endo: No excessive thirst, no heat/cold intolerance Heme: No unusual bruising or bleeding, no swollen glands Neuro: No syncope, no numbness/tingling, no focal weakness Vasc: No claudication Psych: No recent change in mood, no SI or HI. +frequent anxiety *Physical Exam - Vital Signs Last Vital Signs Temp Pulse Resp BP Pulse Ox 96.9 F L 70 19 137/76 98 03/29/18 21:53 03/29/18 21:53 03/29/18 21:53 03/29/18 21:53 03/29/18 21:53 - Physical Exam Comments: General: Comfortable, no acute distress, obese HEENT: PERRL, EOMI, MMM, voice normal, normal neck ROM, no LAD Cards: RRR, no murmur appreciated Pulm: Comfortable on room air, no wheezing or crackles appreciated but distant breath sounds Abd: Soft, nontender, nondistended, reducible umbilical hernia Ext: Atraumatic. Trace LE edema. ROM intact. Strength 5/5 and equal bilaterally Vasc: Extremities WWP. Skin: Normal color, no rashes or lesions Neuro: A&Ox3, CN grossly intact, normal speech, motor/sensory grossly intact and symmetric Psych: Appears very anxious Heart Score/ECG Review - History History: Moderately suspicious Moderate Sedation - Procedure Monitoring Vital Signs: Procedure Monitoring Vital Signs Temperature 96.9 F L 03/29/18 21:53 Pulse Rate 70 03/29/18 21:53 Respiratory Rate 19 03/29/18 21:53 Blood Pressure 137/76 03/29/18 21:53 O2 Sat by Pulse Oximetry (%) 98 03/29/18 21:53 ED Treatment Course - LABORATORY CBC & Chemistry Diagram: 03/29/18 22:40 03/29/18 22:40 - ADDITIONAL ORDERS Additional order review: Laboratory Results 03/29/18 03/29/18 03/29/18 22:40 22:40 22:40 PT with INR INR PTT (Actin FS) 36.5 Sodium 140 Potassium 4.6 Chloride 104 Carbon Dioxide 30 Anion Gap 7 L BUN 22 H Creatinine 0.9 Creat Clearance w eGFR > 60 Random Glucose 177 H Calcium 8.8 Magnesium 2.1 Total Bilirubin 0.5 AST 16 ALT 22 Alkaline Phosphatase 82 Creatine Kinase 115 Troponin I 0.03 B-Natriuretic Peptide 760.6 H Total Protein 6.8 Albumin 3.4 03/29/18 22:40 PT with INR 13.80 H INR 1.17 H PTT (Actin FS) Sodium Potassium Chloride Carbon Dioxide Anion Gap BUN Creatinine Creat Clearance w eGFR Random Glucose Calcium Magnesium Total Bilirubin AST ALT Alkaline Phosphatase Creatine Kinase Troponin I B-Natriuretic Peptide Total Protein Albumin 03/29/18 22:40 RBC 4.81 MCV 90.2 MCHC 34.1 RDW 15.2 MPV 7.6 Neutrophils % 61.1 Lymphocytes % 27.7 Monocytes % 7.5 Eosinophils % 2.8 Basophils % 0.9 - RADIOLOGY Radiology Studies Ordered: Category Date Time Status CHEST PA & LAT [RAD] Stat Radiology 03/30/18 01:13 Taken Medical Decision Making - Medical Decision Making 03/29/18 22:23 Valencia Kan is a 72yo woman with a PMH of CAD s/p stent (x1 2009), CHF, thoracic aortic aneurysm s/p repair, cerebral aneurysm s/p clipping, DM, HTN, Afib (on eliquis), DM, COPD, and obesity who presents with mid-sternal chest pain that occurred at home tonight in the setting of an argument with family. She reports that the pain self-resolved, and she denies any associated symptoms. - Given pt's medical history, concerning for ACS. Pt reports she feels that she often has similar pain, and she states she was told in the past that it was due to anxiety, but per records had a-fib w/ RVR. - CBC, chemistry, coags, trop, EKG, CXR - Currently reports no pain; takes ASA at home. Will give meds as indicated 03/29/18 23:20 - Labs reviewed. Notable for BNP in 700's, but does not appear to be clinically significant. No edema, no inc SOB or report of orthopnea. - Troponin negative - EKG not yet completed - requested tech to complete at this time - Ms Kan sleeping comfortably - Will recheck trop at 3hrs 03/30/18 02:19 - CXR and EKG completed, reviewed. EKG NSR without ST elevations or concerning changes. CXR with poor lung expansion, but no focal consolidations. - Repeat trop pending. Will d/c home with cardiology follow up if negative. Discussed with Dr Wallace. Sierra Dupont PGY1 *DC/Admit/Observation/Transfer Diagnosis at time of Disposition: Chest pain - Discharge Dispostion Disposition: HOME Condition at time of disposition: Stable Decision to Admit order: No - Referrals Referrals: Mike Browning MD [Staff Physician] - - Patient Instructions Printed Discharge Instructions: DI for Chest Pain Additional Instructions: Discharge Instructions: You were seen in the emergency department for chest pain at home today. You had an EKG and chest xray to evaluate your heart and lungs. You also had blood tests to check your blood counts, electrolytes, blood sugar, kidneys, liver, and heart. These tests were all normal. Your chest pain may be caused by your anxiety, but it could still be from a heart condition even though your tests were normal. You should follow up with your dish network installer, Dr Browning, within the next week to make sure you do not need additional tests. Continue to take all of your home medications. Seek immediate medical care if you have continued or worsening chest pain, shortness of breath, or any medical emergency. - Post Discharge Activity
[2018-03-29 22:44] LABS: BASO % 0.9 % (0-2.0); EOS % 2.8 % (0-4.5); HEMATOCRIT 43.4 % (32.4-45.2); HEMOGLOBIN 14.8 GM/dL (10.7-15.3); LYMPH % 27.7 % (8-40); MCH 30.7 pg (25.7-33.7); MCHC 34.1 g/dl (32.0-36.0); MEAN CELL VOLUME 90.2 fl (80-96); MEAN PLT VOLUME 7.6 fl (7.5-11.1); MONO % 7.5 % (3.8-10.2); NEUT % 61.1 % (42.8-82.8); PLATELET COUNT 222 K/MM3 (134-434); RBC 4.81 M/mm3 (3.60-5.2); RDW 15.2 % (11.6-15.6); WHITE BLOOD COUNT 6.2 K/mm3 (4.0-10.0)
[2018-03-29 22:56] LABS: INR 1.17 (0.83-1.09); PROTHROMBIN TIME (PATIENT) 13.8 SEC (9.7-13.0)
[2018-03-29 23:10] LABS: ALBUMIN 3.4 g/dl (3.4-5.0); ALK PHOS 82 U/L (45-117); ANION GAP 7 MMOL/L (8-16); BILIRUBIN,TOTAL 0.5 mg/dL (0.2-1); BLOOD UREA NITROGEN 22 mg/dL (7-18); CALCIUM 8.8 mg/dL (8.5-10.1); CHLORIDE 104 mmol/L (98-107); CO2 30 mmol/L (21-32); CREATININE 0.9 mg/dL (0.55-1.3); GLUCOSE,RANDOM 177 mg/dL (74-106); MAGNESIUM 2.1 mg/dL (1.8-2.4); POTASSIUM 4.6 mmol/L (3.5-5.1); SGOT/AST 16 U/L (15-37); SGPT/ALT 22 U/L (13-61); SODIUM 140 mmol/L (136-145); TOT PROT 6.8 g/dl (6.4-8.2)
--- NOTE | 2018-03-29 23:26 | PDOC ---
Attending Attestation - [facility] HPI: 03/29/18 23:45 The patient is a 72 year old female, with a significant past medical history of asthma, Afib, thoracic aortic aneurysm s/p repair, CAD s/p stent (2008), CVA, cerebral aneurysm s/p clipping, COPD, HTN, Hypercholesterolemia, CHF, DM, and umbilical hernia, who presents to the emergency department with middle chest pain radiating to the LT shoulder, that began this evening.The patient describes the chest pain as sharp. The patient notes she has previously experienced similar symptoms, which usually occur when she is feeling anxious. She denies recent fevers, chills, headache or dizziness. She denies recent nausea, vomit, diarrhea or constipation. She denies recent dysuria, frequency, urgency or hematuria. She denies recent chest pain, shortness of breath or diaphoresis Allergies: pregabalin, budesonide, celecoxib, formoterol fumarate, sulfacetamide sodium Past surgical history: None reported. Primary Care Physician: Dr. Malik Rose Program Evaluation Consultant: Dr. Mike Browning - Physicial Exam PE: 03/29/18 23:45 GENERAL: +morbidly obese. Awake and alert. No acute distress. HEENT: Normocephalic, atraumatic. PERRLA, EOMI. No conjunctival pallor. Sclera are non- icteric. Moist mucous membranes. Oropharynx is clear. NECK: Supple. Full ROM. No JVD. Carotid pulses 2+ and symmetric, without bruits. No thyromegaly. No lymphadenopathy. CARDIOVASCULAR: Regular rate and rhythm. No murmurs, rubs, or gallops. Distal pulses are 2+ and symmetric. PULMONARY: No evidence of respiratory distress. Lungs clear to auscultation bilaterally. No wheezing, rales or rhonchi. ABDOMINAL: +protuberant belly. +umbilical hernia, soft and nontender, excoriated. Soft. Non -tender. Non-distended. No rebound or guarding. No organomegaly. Normoactive bowel sounds. MUSCULOSKELETAL Normal range of motion at all joints. No bony deformities or tenderness. No CVA tenderness. EXTREMITIES: No cyanosis. No clubbing. No edema. No calf tenderness. SKIN: Warm and dry. Normal capillary refill. No rashes. No jaundice. NEUROLOGICAL: Alert, awake, appropriate. Cranial nerves 2-12 intact. No deficits to light touch and temperature in face, upper extremities and lower extremities. No motor deficits in the in face, upper extremities and lower extremities. Moving all extremities. Normoreflexic in the upper and lower extremities. Normal speech. Toes are down-going bilaterally. PSYCHIATRIC: Cooperative. Good eye contact. Appropriate mood and affect. <Gayle Sosa - Last Filed: 03/29/18 23:45> - Resident Resident Name: Sierra Dupont - ED Attending Attestation I have performed the following: I have examined & evaluated the patient, The case was reviewed & discussed with the resident, I agree w/resident's findings & plan, Exceptions are as noted - Medical Decision Making 03/30/18 00:42 first troponin is negative ekg is nsr @ 67 bpm 03/30/18 02:04 awaiting second trop <Mireya Wallace - Last Filed: 03/30/18 02:07> Attestations - Attestations 03/29/18 23:46 Documentation prepared by Gayle Sosa, acting as certified court/medical interpreter for Mireya Wallace MD. <Gayle Sosa - Last Filed: 03/29/18 23:45>
[2018-03-30 06:31] VITALS: BP 126/78; PULSE 88; TEMP 98.5
--- NOTE | 2018-03-30 16:35 | EKG ---
Test Reason : Blood Pressure : / mmHG Vent. Rate : 067 BPM Atrial Rate : 067 BPM P-R Int : 144 ms QRS Dur : 074 ms QT Int : 452 ms P-R-T Axes : 039 -22 054 degrees QTc Int : 477 ms POOR DATA QUALITY, INTERPRETATION MAY BE ADVERSELY AFFECTED SINUS RHYTHM WITH PREMATURE ATRIAL COMPLEXES NONSPECIFIC ST ABNORMALITY BORDERLINE ECG Confirmed by MD DAJA, DERICK ([id number]) on 03/30/2018 4:34:42 PM Referred By: Confirmed By:DERICK FARNSWORTH MD
== END 2018-03-30 06:31 | disposition home or self-care (01) ==
LOC: JER 21:53
DX: R07.9 Chest pain, unspecified (principal); I25.10 Atherosclerotic heart disease of native coronary artery without angina pectoris; I11.0 Hypertensive heart disease with heart failure; Z95.5 Presence of coronary angioplasty implant and graft; E11.9 Type 2 diabetes mellitus without complications; I48.91 Unspecified atrial fibrillation; Z79.01 Long term (current) use of anticoagulants; J44.9 Chronic obstructive pulmonary disease, unspecified; E66.9 Obesity, unspecified; Z68.42 Body mass index [BMI] 45.0-49.9, adult
CPT/HCPCS: 36415; 71046-TC-FY; 80053; 82550; 83735; 83880; 84484; 85025; 85610; 85730; 93005; 93010; 99284-25

== ENCOUNTER 2018-06-09 21:43 | Emergency (ER) | payer MEDICARE, OTHER ==
[2018-06-09 21:48] VITALS: TEMP 98.4; BMI 49.0
--- NOTE | 2018-06-10 01:01 | PDOC ---
History of Present Illness - General Chief Complaint: Headache Stated Complaint: HEADACE Time Seen by Provider: 06/10/18 00:45 - History of Present Illness Initial Comments: 06/10/18 01:03 72yo woman with a PMH of CAD s/p stent (x1 2008), CHF, thoracic aortic aneurysm s/p repair, cerebral aneurysm s/p clipping, DM, HTN, Afib (on eliquis) , DM, COPD, and obesity presents with 8/10 headache and neck pain for the past 3 days, getting worse. Nauseous but no vomiting. No history of migraines. No change in vision Past History - Past Medical History Allergies/Adverse Reactions: Allergies Allergy/AdvReac Type Severity Reaction Status Date / Time pregabalin [From Lyrica] Allergy Intermediate Verified 03/29/18 22:13 budesonide [From Symbicort] Allergy Verified 03/29/18 22:13 celecoxib [From Celebrex] Allergy Verified 03/29/18 22:13 formoterol fumarate Allergy Verified 03/29/18 22:13 [From Symbicort] sulfacetamide sodium Allergy Verified 03/29/18 22:13 [From Sulfamide] Home Medications: Ambulatory Orders Atorvastatin Ca [Lipitor] 40 mg PO HS tablet 11/12/15 Metoprolol Succinate [Toprol XL -] 50 mg PO DAILY tab.sr.24h 11/12/15 Ranitidine [Zantac -] 150 mg PO BID tablet 11/12/15 Sertraline HCl [Zoloft -] 25 mg PO DAILY tablet 11/12/15 metFORMIN HCL [Glucophage -] 500 mg PO BIDI tablet 11/12/15 Apixaban [Eliquis] 5 mg PO BID 12/22/15 Diltiazem Cd [Cardizem Cd -] 360 mg PO DAILY #60 cap.cd.24h 03/25/16 Furosemide [Lasix -] 40 mg PO DAILY 10/06/16 Aspirin Coated [Ecotrin -] 81 mg PO DAILY tablet.ec 05/22/17 Clopidogrel Bisulfate [Plavix -] 75 mg PO DAILY #30 tablet 05/22/17 Nystatin Powder [Nystop Powder -] 1 applic TP DAILY #1 applic 05/22/17 Anemia: No Asthma: Yes Cancer: No Cardiac Disorders: Yes (2009 STENT X1,, LINQ) 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) COPD: Yes CHF: No DVT: No Dementia: No Diabetes: Yes GI Disorders: Yes (UMBILICAL HERNIA) Disorders: No HTN: Yes Hypercholesterolemia: Yes Liver Disease: No Seizures: No Thyroid Disease: No - Surgical History Abdominal Surgery: No Appendectomy: No Cardiac Surgery: Yes (STENT X 1, LOOP RECORDER INSERTION) Cholecystectomy: No Lung Surgery: Yes (biopsy May 2013) Neurologic Surgery: Yes (brain aneurysm clipped) Orthopedic Surgery: No - Immunization History Td Vaccination: Yes Immunization Up to Date: Yes - Suicide/Smoking/Psychosocial Hx Smoking Status: Yes Smoking History: Never smoked Years of Tobacco Use: 0 Have you smoked in the past 12 months: No Number of Cigarettes Smoked Daily: 0 If you are a former smoker, when did you quit?: 40 yrs Cigars Per Day: 0 Information on smoking cessation initiated: No 'Breaking Loose' booklet given: 08/17/13 Hx Alcohol Use: No Drug/Substance Use Hx: No Substance Use Type: None Hx Substance Use Treatment: No Neuro Specific PMHX - Complaint Specific PMHX Herniated Disk: No TIA: No Review of Systems - Review of Systems Able to Perform ROS?: Yes Is the patient limited Bulgarian proficient: No Constitutional: No: Symptoms Reported HEENTM: No: Symptoms Reported Respiratory: No: Symptoms reported Cardiac (ROS): No: Symptoms Reported ABD/GI: No: Symptoms Reported : No: Symptoms Reported Musculoskeletal: No: Symptoms Reported Neurological: Yes: See HPI All Other Systems: Reviewed and Negative *Physical Exam - Vital Signs Last Vital Signs Temp Pulse Resp BP Pulse Ox 98.4 F 67 18 140/65 100 06/09/18 21:44 06/09/18 21:44 06/09/18 21:44 06/09/18 21:44 06/09/18 21:44 - Physical Exam General Appearance: Yes: Nourished, Appropriately Dressed. No: Apparent Distress HEENT: positive: EOMI, ELEANOR, Normal ENT Inspection Respiratory/Chest: positive: Lungs Clear, Normal Breath Sounds. negative: Chest Tender, Respiratory Distress Cardiovascular: positive: Regular Rhythm, Regular Rate, S1, S2 Gastrointestinal/Abdominal: positive: Normal Bowel Sounds, Flat, Soft. negative : Tender Musculoskeletal: positive: Normal Inspection. negative: CVA Tenderness Extremity: positive: Normal Capillary Refill, Normal Inspection, Normal Range of Motion Integumentary: positive: Normal Color, Dry, Warm Neurologic: positive: Fully Oriented, Alert, Normal Mood/Affect, Normal Response , Motor Strength 07/11 ED Treatment Course - LABORATORY CBC & Chemistry Diagram: 06/10/18 03:10 06/10/18 03:10 Medical Decision Making - Medical Decision Making 06/10/18 05:38 Due to the patient's history of aneurism (albeit 40 years ago) we have to r/o sah. Head and neck Ct negative. Patient feels better with reglan and tylenol. Will follow up with neurology outpatient with dr. Maria. 06/10/18 05:51 *DC/Admit/Observation/Transfer Diagnosis at time of Disposition: Head ache, Cervical pain (neck) - Discharge Dispostion Disposition: HOME Decision to Admit order: No - Referrals Referrals: Toya Soria NP [Primary Care Provider] - Valente Maria MD [Staff Physician] - - Patient Instructions Printed Discharge Instructions: DI for Neck Pain Additional Instructions: Come back to the emergency department for any new, worsening or concerning symptom. Follow up with Dr. Maria within the next week. - Post Discharge Activity
--- NOTE | 2018-06-10 01:13 | PDOC ---
Attending Attestation - Resident Resident Name: Derek Hayden - ED Attending Attestation I have performed the following: I have examined & evaluated the patient, The case was reviewed & discussed with the resident, I agree w/resident's findings & plan - HPI HPI: 06/10/18 06:23 73-year-old female complaining of generalized headache, patient has a history of cerebral aneurysm which was clipped approximately 40 years ago, she states that this headache and his much less severe. It is not the worst headache of her life. She does not describe a thunderclap onset. There is no associated fever or neck pain. - Physicial Exam PE: 06/10/18 06:23 Agree with resident's exam - Medical Decision Making 06/10/18 06:24 73-year-old female with headache now resolved after IV Tylenol and Reglan CT scan of the brain shows no acute abnormality On reevaluation at 5:30 AM patient is pain-free, lumbar puncture was discussed which she has refused, she is aware that there is a very small percentage of intracranial bleeding that can be missed with CAT scan which would be further evaluated with lumbar puncture, she accepts this risk and has agreed to return if worse She will be given outpatient neurology follow-up as well
[2018-06-10 03:15] LABS: BASO % 0.9 % (0-2.0); EOS % 3.8 % (0-4.5); HEMATOCRIT 42.8 % (32.4-45.2); HEMOGLOBIN 14.2 GM/dL (10.7-15.3); LYMPH % 28.1 % (8-40); MCH 29.7 pg (25.7-33.7); MCHC 33.2 g/dl (32.0-36.0); MEAN CELL VOLUME 89.7 fl (80-96); MEAN PLT VOLUME 7.8 fl (7.5-11.1); MONO % 10.3 % (3.8-10.2); NEUT % 56.9 % (42.8-82.8); PLATELET COUNT 201 K/MM3 (134-434); RBC 4.77 M/mm3 (3.60-5.2); RDW 14.9 % (11.6-15.6)
[2018-06-10 03:31] LABS: INR 1.05 (0.83-1.09); PROTHROMBIN TIME (PATIENT) 12.4 SEC (9.7-13.0)
[2018-06-10 03:33] LABS: ACTIVATED PTT 40.2 SECONDS (25.2-36.5)
[2018-06-10 03:36] LABS: ALBUMIN 3.6 g/dl (3.4-5.0); ALK PHOS 75 U/L (45-117); ANION GAP 7 MMOL/L (8-16); BILIRUBIN,TOTAL 0.4 mg/dL (0.2-1); BLOOD UREA NITROGEN 17 mg/dL (7-18); CHLORIDE 107 mmol/L (98-107); CO2 27 mmol/L (21-32); CREATININE 0.9 mg/dL (0.55-1.3); GLUCOSE,RANDOM 141 mg/dL (74-106); POTASSIUM 4.1 mmol/L (3.5-5.1); SGOT/AST 12 U/L (15-37); SGPT/ALT 47 U/L (13-61); SODIUM 141 mmol/L (136-145); TOT PROT 7.2 g/dl (6.4-8.2)
[2018-06-10] MEDS ORDERED: ACETAMINOPHEN 1000 MG/100 ML VIAL (NON FORMULARY) IVPB ONE (03:47)
[2018-06-10] MEDS ORDERED: METOCLOPRAMIDE HCL INJECTION 10 MG/2 ML VIAL IVPUSH ONE (03:47)
[2018-06-10] MEDS ORDERED: METOCLOPRAMIDE HCL INJECTION 10 MG/2 ML VIAL ONE (04:15)
[2018-06-10] MEDS ORDERED: ACETAMINOPHEN INJECTION 100 ML IVPB ONE (04:16)
[2018-06-10 06:25] VITALS: BP 138/78; PULSE 68
--- NOTE | 2018-06-10 11:46 | EKG ---
Test Reason : Blood Pressure : / mmHG Vent. Rate : 067 BPM Atrial Rate : 067 BPM P-R Int : 148 ms QRS Dur : 084 ms QT Int : 442 ms P-R-T Axes : 033 -17 096 degrees QTc Int : 467 ms SINUS RHYTHM WITH PREMATURE ATRIAL COMPLEXES MINIMAL VOLTAGE CRITERIA FOR LVH, MAY BE NORMAL VARIANT ANTEROSEPTAL INFARCT , AGE UNDETERMINED ABNORMAL ECG WHEN COMPARED WITH ECG OF 29-MAR-2018 23:41, ANTEROSEPTAL INFARCT IS NOW PRESENT Confirmed by AL WAYNE MD ([id number]) on 06/10/2018 11:46:06 AM Referred By: Confirmed By:AL WAYNE MD
== END 2018-06-10 06:05 | disposition home or self-care (01) ==
LOC: JER 21:43
PROC: 3E033NZ Introduction of Analgesics, Hypnotics, Sedatives into Peripheral Vein, Percutaneous Approach (ICD-10-PCS; principal; 2018-06-09)
PROC: 3E033GC Introduction of Other Therapeutic Substance into Peripheral Vein, Percutaneous Approach (ICD-10-PCS; 2018-06-09)
DX: M54.2 Cervicalgia (principal); I25.10 Atherosclerotic heart disease of native coronary artery without angina pectoris; I11.0 Hypertensive heart disease with heart failure; Z95.5 Presence of coronary angioplasty implant and graft; E11.9 Type 2 diabetes mellitus without complications; Z79.84 Long term (current) use of oral hypoglycemic drugs; J44.9 Chronic obstructive pulmonary disease, unspecified; I48.91 Unspecified atrial fibrillation; Z79.01 Long term (current) use of anticoagulants; Z86.79 Personal history of other diseases of the circulatory system; E66.9 Obesity, unspecified; Z68.42 Body mass index [BMI] 45.0-49.9, adult
CPT/HCPCS: 36415; 70450-TC; 71045-TC-FY; 72125-TC; 80053; 85025; 85610; 85730; 86850; 86900; 86901; 93005; 93010; 99283-25; J0131

== ENCOUNTER 2018-08-20 20:08 | Inpatient (IN) | payer MEDICARE, OTHER ==
--- NOTE | 2018-08-20 20:54 | PDOC ---
History of Present Illness - General Chief Complaint: Shortness of Breath Stated Complaint: DIFFICULTY BREATHING Time Seen by Provider: 08/20/18 20:51 History Source: Patient Exam Limitations: No Limitations - History of Present Illness Initial Comments: 08/20/18 20:54 73YOF with h/o CAD s/p stent (x1 2008), COPD, CHF, thoracic aortic aneurysm s/p repair, cerebral aneurysm s/p clipping, DM, HTN, Afib (on eliquis), and morbid obesity. She presents with cough/sore throat worsening for the past week with 2- 3 hours of increased SOB and wheezing. The patient states she has been taking all her medications as she is supposed to, including her diuretics. She does not have any breathing treatments left at home. She has had much worse BARBOZA than normal lately, denies any new leg swelling or calf pain, a little bit of right hip/thigh pain. States she does not monitor her weight closely at home. Has chills but denies measured fever, n/v/d/c, chest pain, back pain, abdominal pain , or other symptoms. Past History - Past Medical History Allergies/Adverse Reactions: Allergies Allergy/AdvReac Type Severity Reaction Status Date / Time pregabalin [From Lyrica] Allergy Intermediate Verified 08/20/18 20:40 budesonide [From Symbicort] Allergy Verified 08/20/18 20:40 celecoxib [From Celebrex] Allergy Verified 08/20/18 20:40 formoterol fumarate Allergy Verified 08/20/18 20:40 [From Symbicort] sulfacetamide sodium Allergy Verified 08/20/18 20:40 [From Sulfamide] Home Medications: Ambulatory Orders Atorvastatin Ca [Lipitor] 40 mg PO HS tablet 11/12/15 Metoprolol Succinate [Toprol XL -] 50 mg PO DAILY tab.sr.24h 11/12/15 Ranitidine [Zantac -] 150 mg PO BID tablet 11/12/15 Sertraline HCl [Zoloft -] 25 mg PO DAILY tablet 11/12/15 metFORMIN HCL [Glucophage -] 500 mg PO BIDI tablet 11/12/15 Apixaban [Eliquis] 5 mg PO BID 12/22/15 Diltiazem Cd [Cardizem Cd -] 360 mg PO DAILY #60 cap.cd.24h 03/25/16 Furosemide [Lasix -] 40 mg PO DAILY 10/06/16 Aspirin Coated [Ecotrin -] 81 mg PO DAILY tablet.ec 05/22/17 Clopidogrel Bisulfate [Plavix -] 75 mg PO DAILY #30 tablet 05/22/17 Nystatin Powder [Nystop Powder -] 1 applic TP DAILY #1 applic 05/22/17 Anemia: No Asthma: Yes Cancer: No Cardiac Disorders: Yes (2009 STENT X1,, LINQ) 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) COPD: Yes CHF: No DVT: No Dementia: No Diabetes: Yes GI Disorders: Yes (UMBILICAL HERNIA) Disorders: No HTN: Yes Hypercholesterolemia: Yes Liver Disease: No Seizures: No Thyroid Disease: No - Surgical History Abdominal Surgery: No Appendectomy: No Cardiac Surgery: Yes (STENT X 1, LOOP RECORDER INSERTION) Cholecystectomy: No Lung Surgery: Yes (biopsy May 2013) Neurologic Surgery: Yes (brain aneurysm clipped) Orthopedic Surgery: No - Immunization History Td Vaccination: Yes Immunization Up to Date: Yes - Suicide/Smoking/Psychosocial Hx Smoking Status: Yes Smoking History: Never smoked Years of Tobacco Use: 0 Have you smoked in the past 12 months: No Number of Cigarettes Smoked Daily: 0 If you are a former smoker, when did you quit?: 1970 Cigars Per Day: 0 Information on smoking cessation initiated: No 'Breaking Loose' booklet given: 08/17/13 Hx Alcohol Use: No Drug/Substance Use Hx: No Substance Use Type: None Hx Substance Use Treatment: No Review of Systems - Review of Systems Able to Perform ROS?: Yes Comments:: 08/20/18 21:49 GEN: fever, chills, malaise, generalized weakness HEENT: no ear pain, sore throat, vision change, or eye pain CV: no chest pain, palpitations, lightheadedness, syncope, or edema RESP: cough, wheezing, SOB, BARBOZA, orthopnea (chronic) GI: no abdominal pain, nausea, vomiting, diarrhea, constipation, or white/black/ bloody stool : no dysuria, hematuria, incontinence, retention, bleeding, or discharge MSK: no neck/back pain, muscle weakness/pain, or joint swelling/pain NEURO: no headache, seizure, vertigo, numbness, tingling, or focal weakness PSYCH: no substance use, no behavior change SKIN: groin rash, no jaundice, no pallor ROS otherwise negative except as noted in HPI *Physical Exam - Vital Signs Last Vital Signs Temp Pulse Resp BP Pulse Ox 100.1 F H 88 18 140/62 98 08/20/18 20:40 08/20/18 20:40 08/20/18 20:40 08/20/18 20:40 08/20/18 20:40 - Physical Exam Comments: 08/20/18 21:50 GENERAL: pleasant, morbidly obese, A/Ox4, mild distress, answers questions appropriately, accompanied by family at bedside HEENT: PERRLA, EOMI, moist mucous membranes NECK/BACK: no midline ttp, no spinal stepoff or deformity, no hematoma, full ROM , neck supple CARDIOVASCULAR: regular rate/rhythm, normal S1S2, no MGR, strong peripheral pulses, capillary refill <2 seconds, extremities wwp, no pitting edema LUNGS/RESPIRATORY: poor air movement, mild-moderate respiratory distress GI/ABDOMEN: symmetric [id number], normoactive BS, soft, no ttp, no midline pulsatile masses : no CVA tenderness EXTREMITIES: no muscle atrophy, no acute deformity, no pitting edema SKIN: hot to the touch, bilateral intertriginous groin with bright red erythematous rash c/w yeast infection, warm and dry, no pallor, no jaundice, no bruising, no skin breakdown, no cuts, no lesions NEUROLOGICAL: GCS 15, CN II-XII grossly intact, 5/5 strength proximally and distally, no facial droop Procedures - Bedside Ultrasound Remarks: STUDY: Lungs INDICATION: SOB FINDINGS: Good lung sliding, no B-lines, no consolidation seen CONCLUSION: Normal lung US without e/o CHF, PTX, or PNA (at least in the zones visualized) Heart Score/ECG Review #1 08/20/18 20:29 Sinus rhythm, rate 89, normal axis, UYk=575 not grossly prolonged, LVH, TWI in I , aVL, otherwise no ST-T changes. ED Treatment Course - LABORATORY CBC & Chemistry Diagram: 08/20/18 21:46 08/20/18 21:46 Medical Decision Making - Medical Decision Making 08/20/18 21:53 73YOF with h/o CHF, COPD, CAD, morbid obesity p/w SOB, fever, URI symptoms. Initial Vital Signs Temp Pulse Resp BP Pulse Ox 100.1 F H 88 18 140/62 98 08/20/18 20:40 08/20/18 20:40 08/20/18 20:40 08/20/18 20:40 08/20/18 20:40 Exam: As noted in Physical Exam section. DDX IBNLT: PNA, bronchitis, COPD, asthma, CHF, other lung disease, viral URI ( e.g. influenza), laryngitis, tracheitis, etc. W/U ordered: CXR EKG CBCD CMP Mg Phos Blood gas EKG CXR TX ordered: Ofirmev IVF Important to check Phos as severe hypophos can cause decr contractility and ventilation and rhabdo. POCUS: Lung study done, see procedures section. US guided PIV placed LAC. EKG: Reviewed; results as noted in ECG Review section. CXR: right middle lobe consolidation. Laboratory Tests 08/20/18 08/20/18 08/20/18 21:46 21:46 21:46 WBC 11.0 H RBC 4.83 Hgb 14.8 Hct 42.8 MCV 88.6 MCH 30.7 MCHC 34.6 RDW 14.9 Plt Count 230 MPV 9.5 D Absolute Neuts (auto) 9.0 H Neutrophils % 81.7 D Lymphocytes % 7.2 L D Monocytes % 10.7 H Eosinophils % 0.1 D Basophils % 0.3 Nucleated RBC % 0 Platelet Estimate Adequate Platelet Comment No clumping noted VBG pH 7.43 H POC VBG pCO2 37.6 L POC VBG pO2 113 H VBG HCO3 24.5 VBG O2 Sat (Mushtaq) 98.5 H VBG Base Excess 0.9 Sodium Potassium Chloride Carbon Dioxide Anion Gap BUN Creatinine Est GFR (CKD-EPI)AfAm Est GFR (CKD-EPI)NonAf Random Glucose Calcium Total Bilirubin AST ALT Alkaline Phosphatase Creatine Kinase Troponin I B-Natriuretic Peptide Total Protein Albumin Urine Color Yellow Urine Appearance Turbid Urine pH 5.5 Ur Specific Gurley 1.013 Urine Protein 1+ H Urine Glucose (UA) Negative Urine Ketones Negative Urine Blood 2+ H Urine Nitrite Negative Urine Bilirubin Negative Urine Urobilinogen 0.2 Ur Leukocyte Esterase 3+ H Urine WBC (Auto) 2614 Urine Casts (Auto) 86 U Epithel Cells (Auto) 13.5 Urine Bacteria (Auto) 7817.1 08/20/18 21:46 WBC RBC Hgb Hct MCV MCH MCHC RDW Plt Count MPV Absolute Neuts (auto) Neutrophils % Lymphocytes % Monocytes % Eosinophils % Basophils % Nucleated RBC % Platelet Estimate Platelet Comment VBG pH POC VBG pCO2 POC VBG pO2 VBG HCO3 VBG O2 Sat (Mushtaq) VBG Base Excess Sodium 136 Potassium 3.5 Chloride 100 Carbon Dioxide 27 Anion Gap 9 BUN 13.9 Creatinine 1.1 Est GFR (CKD-EPI)AfAm 57.28 Est GFR (CKD-EPI)NonAf 49.42 Random Glucose 218 H Calcium 8.5 Total Bilirubin 1.1 H AST 9 L ALT 18 Alkaline Phosphatase 76 Creatine Kinase 105 Troponin I 0.03 B-Natriuretic Peptide 3908.5 H Total Protein 6.9 Albumin 3.2 L Urine Color Urine Appearance Urine pH Ur Specific Gurley Urine Protein Urine Glucose (UA) Urine Ketones Urine Blood Urine Nitrite Urine Bilirubin Urine Urobilinogen Ur Leukocyte Esterase Urine WBC (Auto) Urine Casts (Auto) U Epithel Cells (Auto) Urine Bacteria (Auto) 08/20/18 22:50 CURB-65 score is 1 but the patient has many comorbidities, is likely in CHF and COPD exacerbation, skin infection too. Patient has significant comorbidities, kassy infection, CHF and COPD exacerbation likely. Patient given SoluMedrol, Lasix, Azithromycin, Ceftriaxone. The Pt is unsafe for discharge at this time. They require further hospital observation, workup, and treatment. [facility] sent to [facility] for admission. Blank Decision to Admit order is placed per ED protocol. *DC/Admit/Observation/Transfer Diagnosis at time of Disposition: COPD exacerbation Pneumonia Qualifiers: Pneumonia type: due to unspecified organism Laterality: right Lung location: middle lobe of lung Qualified Code(s): J18.1 - Lobar pneumonia, unspecified organism CHF exacerbation Qualifiers: Heart failure type: unspecified Qualified Code(s): I50.9 - Heart failure, unspecified - Discharge Dispostion Condition at time of disposition: Guarded Decision to Admit order: Yes - Referrals - Patient Instructions - Post Discharge Activity
[2018-08-20] MEDS ORDERED: ALBUTEROL SO4 2.5/IPRATROPIUM 0.5 INH SOL 3 ML VIAL.NEB. NEB ONE ×2 (21:10→21:16)
[2018-08-20] MEDS ORDERED: ACETAMINOPHEN 1000 MG/100 ML VIAL (NON FORMULARY) IVPB ONE (21:46)
[2018-08-20] MEDS ORDERED: NYSTATIN 100,000 UNIT/GM TOPICAL CREAM 15 GM TUBE TP ONE (21:46)
[2018-08-20] MEDS ORDERED: SODIUM CHLORIDE 0.9% 1000 ML INFUS.BAG IV ONE (21:47)
[2018-08-20] MEDS ORDERED: ACETAMINOPHEN INJECTION 100 ML IVPB ONE (22:11)
[2018-08-20 22:13] LABS: BASO % 0.3 % (0-2.0); EOS % 0.1 % (0-4.5); HEMATOCRIT 42.8 % (32.4-45.2); HEMOGLOBIN 14.8 GM/dL (10.7-15.3); LYMPH % 7.2 % (8-40); MCH 30.7 pg (25.7-33.7); MCHC 34.6 g/dl (32.0-36.0); MEAN CELL VOLUME 88.6 fl (80-96); MEAN PLT VOLUME 9.5 fl (7.5-11.1); MONO % 10.7 % (3.8-10.2); NEUT % 81.7 % (42.8-82.8); RBC 4.83 M/mm3 (3.60-5.2); RDW 14.9 % (11.6-15.6)
[2018-08-20 22:14] LABS: VENOUS PC02 37.6 mmHg (41-51); VENOUS PH 7.43 (7.31-7.41)
[2018-08-20 22:44] LABS: ALBUMIN 3.2 g/dl (3.4-5.0); BILIRUBIN,TOTAL 1.1 mg/dL (0.2-1); BLOOD UREA NITROGEN 13.9 mg/dL (7-18); CALCIUM 8.5 mg/dL (8.5-10.1); CREATININE 1.1 mg/dL (0.55-1.3); N-TERMINAL BNP 3908.5 pg/ml (5-125); POTASSIUM 3.5 mmol/L (3.5-5.1); TOT PROT 6.9 g/dl (6.4-8.2)
--- NOTE | 2018-08-20 22:44 | PDOC ---
Documentation entered by Andie Johansen SCRIBE, acting as scribe for Thi Ryan DO. Thi Ryan, DO: This documentation has been prepared by the Eleno bernstein Mackenzie, SCRIBE, under my direction and personally reviewed by me in its entirety. I confirm that the documentation accurately reflects all work , treatment, procedures, and medical decision making performed by me. Attending Attestation - Resident Resident Name: JoseloZeny - ED Attending Attestation I have performed the following: I have examined & evaluated the patient, The case was reviewed & discussed with the resident, I agree w/resident's findings & plan - HPI HPI: The patient is a 73 year old female, with a significant PMH of morbid obesity COPD, CHF, CAD s/p stent, DM, HTN, and Afib who presents to the emergency department with a progressively worsening cough for the past week, and SOB for the past 3 hours. The patient denies chest pain,, headache and dizziness. Denies nausea, vomiting, diarrhea and constipation. Denies dysuria, frequency, urgency and hematuria. Allergies: NKA Past surgical history: Social history: No reported 08/20/18 22:53 - Physicial Exam PE: Constitutional: Morbidly obese, febrile, awake, alert, oriented. No acute distress. Head: Normocephalic. Atraumatic Eyes: PERRL. EOMI. Conjunctivae are not pale. ENT: Mucous membranes are moist and intact. Posterior pharynx without exudates or erythema. Uvula midline. Neck: Supple. Full ROM. No lymphadenopathy. Cardiovascular: Regular rate. Regular rhythm. S1, S2 regular. Distal pulses are 2+ and symmetric. Pulmonary/Chest: (+)Lungs completely diminished. (+)Tachypneic. No evidence of respiratory distress. Abdominal: Soft and non-distended. There is no tenderness. No rebound, guarding or rigidity. No organomegaly. No palpable masses. Good bowel sounds. Back: No CVA tenderness. Musculoskeletal: No edema. No cyanosis. No clubbing. Full range of motion in all extremities. No calf tenderness. Radial/pedal pulses are intact and 2+ bilaterally Skin: (+) Red erythematous rash along panis consistent with candidiasis. No erythema in legs. Skin is hot to touch and dry. No petechiae. No purpura. Neurological: Alert and oriented to person, place, and time. Cranial nerves II -XII are grossly intact. Normal speech. Strength is grossly symmetric. No sensory deficits. Psychiatric: Good eye contact. Normal interaction, affect and behavior. 08/20/18 22:55 - Medical Decision Making 08/20/18 22:36 I, Dr. Thi Ryan, DO, attest that this document has been prepared under my direction and personally reviewed by me in its entirety. I further attest, that it accurately reflects all work, treatment, procedures and medical decision -making performed by me. 08/20/18 22:36 a/p: 73yo female with worsening sob and cough -pt denies cp -pt is febrile upon arrival in the ED -pt with worsening sob, also with pelvic candidiasis -dimished bs on lung exam, tachypnic, hot to touch -recent uri, concern for pna -will send labs, cultures, cxr, ekg -pt will need admission -concern for copd exacerabtion 08/20/18 22:45 bedside ultrasound of the lungs does not show b-lines 08/20/18 22:46 poss rml infiltrate on xray will start cap abx also with copd exacerbatiuon and chf exacerbation will give solumedrol, neb, lasix 08/20/18 23:21 pt discussed the pt with Dr. Cartagena who accepts the patient to service Heart Score/ECG Review - ECG Intrepretation Comment:: 08/20/18 22:44 sinus at 85, nl axis, nl interval, q waves septally which are age indeterminate , no acute st/t wave findings, t wave flattening diffusely
[2018-08-20] MEDS ORDERED: CEFTRIAXONE 1 GM in DEXTROSE 5%-WATER - 100 ML IVPB ONE (22:46)
[2018-08-20] MEDS ORDERED: AZITHROMYCIN IVPB 500 MG in DEXTROSE 5%-WATER - 250 ML IVPB ONE (22:46)
[2018-08-20] MEDS ORDERED: methylPREDNISolone NA SUCC 125 MG/2 ML VIAL IVPB ONE (22:46)
[2018-08-20] MEDS ORDERED: FUROSEMIDE 100 MG/10 ML INJECTABLE VIAL IVPB ONE (22:48)
[2018-08-20 22:49] LABS: EPI CELLS 13.5 /HPF (0-5/HPF); HYALINE CASTS 86 /lpf (0-8); PH,URINE 5.5 (5.0-8.0); URINE APPEARANCE TURBID; URINE BACTERIA 7817.1 /hpf (NEGATIVE); URINE BILIRUBIN NEGATIVE (NEGATIVE); URINE COLOR YELLOW; URINE GLUCOSE (UA) NEGATIVE (NEGATIVE); URINE KETONE NEGATIVE (NEGATIVE); URINE LEUK ESTERASE 3+ (NEGATIVE); URINE NITRITE NEGATIVE (NEGATIVE); URINE PROTEIN 1+ (NEGATIVE); URINE UROBILINOGEN 0.2 mg/dL (0.2-1.0); URINE WBC 2614 /hpf (0-5)
[2018-08-20 23:10] LABS: PLATELET COUNT 230 K/MM3 (134-434); PLATELET ESTIMATE ADEQUATE
[2018-08-20 23:17] LABS: URINE RBC 65.8 /hpf (0-4)
--- NOTE | 2018-08-20 23:44 | PN ---
Teaching Attending Note Name of Resident: Ginny Richard ATTENDING PHYSICIAN STATEMENT I saw and evaluated the patient. I reviewed the resident's note and discussed the case with the resident. I agree with the resident's findings and plan as documented. SUBJECTIVE: Seen and examined; please refer to resident note for further historical information. Briefly, this is a 73 y/o female presenting for chest pain x1 day. She was stented sometime within the past year (unsure when, estimates >6 months) and also tells me she has a remote hx PCI which felt like her pain today. She also endorses months of orthopnea and intermittent PND. She has no current cough or acute worsening of her SOB, but her sx have been progressive. I should note that based on ER documentation this is not the story that they got , which involved SOB and no CP. She is not very active. Denies any swelling. Large panniculitis noted. She has a low grade fever. She follows with Dr. Browning for cardiology. No acute changes EKG, largely elevated BNP. 10 sys ROS done and negative aside from HPI PMH, PSH, FH, SH reviewed Home Medications Medication Instructions Recorded Atorvastatin Ca [Lipitor] 40 mg PO HS tablet 11/12/15 Metoprolol Succinate [Toprol XL -] 50 mg PO DAILY tab.sr.24h 11/12/15 Ranitidine [Zantac -] 150 mg PO BID tablet 11/12/15 Sertraline HCl [Zoloft -] 25 mg PO DAILY tablet 11/12/15 metFORMIN HCL [Glucophage -] 500 mg PO BIDI tablet 11/12/15 Apixaban [Eliquis] 5 mg PO BID 12/22/15 Diltiazem Cd [Cardizem Cd -] 360 mg PO DAILY #60 cap.cd.24h 03/25/16 Furosemide [Lasix -] 40 mg PO DAILY 10/06/16 Aspirin Coated [Ecotrin -] 81 mg PO DAILY tablet.ec 05/22/17 Clopidogrel Bisulfate [Plavix -] 75 mg PO DAILY #30 tablet 05/22/17 Nystatin Powder [Nystop Powder -] 1 applic TP DAILY #1 applic 05/22/17 OBJECTIVE: VS, labs, imaging reviewed NAD, resting in bed on RA, AAOx3, poor hygeine NC AT EOMI PERRLA RRR s1/2 no mgr Large red pannus consistent with panniculitis Lungs difficult to auscultate 2/2 habitus; w/ sym exp CN2-12 wnl, no fnd Normal mood, appropriate behavior ASSESSMENT AND PLAN: Patient presents with chest pain; found to have largely elevated BNP and panniculitis. Found to have a +UA. 1) Chest Pain -Has known CAD with recent interventions in 2018; cath report unavailable. Would be helpful to obtain. Her symptoms are somewhat atypical but obviously still concerning given her history. Trend trops and monitor on telemetry. Can discuss with her sewing machinist regarding additional testing. 2) Diastolic CHF Exacerbation -BNP grossly elevated compared to past; symptoms gradually developing. Will place on 40 IV lasix BID and monitor her BMP, Is and Os, and QD Weights. Optimize Mg and K. Can counselor education professor regarding CHF diet prior to DC. Last echo 2018 has almost been a year so will repeat. Congestion evident on CXR; ER concerned for PNA so can check CT for infiltrate, but given no productive cough or acute SOB I would say this is less likely. 3) Panniculitis -Fungal-appearing rash that is now throughout her whole pannus and is warm and appears infected. Will be on IV vanco/ceftriaxone as well as nystatin ointment. Consider wound care consult in AM. Can consider imaging if no improvement with treatment. 4) Acute Cystitis -Grossly positive UA; would be covered by the ceftriaxone above. Followup cultures 5) Hx CAD s/p PCI (pLAD 2008, RCA 2018) -Noted old CV consults; will continue all home meds and reconcile with her pharmacy. 6) P-AF on eliquis -CV2 score noted; continue home metoprolol, dilt, eliquis. On tele. 7) Hx DM -Hold PO agents; SSI when inpatient. 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 13) Morbid Obesity -Weight documented in ER is innacurate. Will reweigh and counselor education professor prior to DC 14) Hx COPD -Currently doesn't appear to be COPD exacerbation; if she is SOB despite diuresis, etc, can consider further steroids. Will leave her on Duonebs and can do PRN albuterol, but would hold off on pred and azithro for now. Full Code
--- NOTE | 2018-08-21 00:45 | HP ---
CHIEF COMPLAINT: chest tightness x 1 day PCP: [facility] HISTORY OF PRESENT ILLNESS: 73 y/o F with PMH thoracic aortic aneurysm s/p repair, cerebral aneurysm s/p clipping, DM, HTN, HLD, diastolic CHF, afib, previous MIs/CAD s/p stents done at [facility] on 03/26, who presents to the ED c/o chest tightness over the past day. As per pt, she was just lying down when she felt sudden chest tightness. Was not a/w SOB. During this time, she has also had a nonproductive cough. She is w/o fever, chills, SOB, chest pain or pressure, or changes in urinary or bowel function. Has not had any recent change in her routine. At baseline, pt lives at home w her daughter and ambulates using a walker. Is able to ambulate "up and down" the hallway. Is unable to walk up stairs. Has never used home 02. States she saw Dr. Pierre a few months ago for a checkup. ER course was notable for: (1) nebs (2) IV tylenol (3) NS 250 cc (4) Recent Travel: denies PAST MEDICAL HISTORY: as above PAST SURGICAL HISTORY: CAD s/p stents done at [facility] Social History: lives w daughter Smoking: quit 40 yrs ago. used to smoke 1ppd for "many yrs" Alcohol: denies Drugs: denies Family History: denies Allergies pregabalin [From Lyrica] Allergy (Intermediate, Verified 08/20/18 20:40) budesonide [From Symbicort] Allergy (Verified 08/20/18 20:40) celecoxib [From Celebrex] Allergy (Verified 08/20/18 20:40) formoterol fumarate [From Symbicort] Allergy (Verified 08/20/18 20:40) sulfacetamide sodium [From Sulfamide] Allergy (Verified 08/20/18 20:40) HOME MEDICATIONS: Home Medications Medication Instructions Recorded Atorvastatin Ca [Lipitor] 40 mg PO HS tablet 11/12/15 Metoprolol Succinate [Toprol XL -] 50 mg PO DAILY tab.sr.24h 11/12/15 Ranitidine [Zantac -] 150 mg PO BID tablet 11/12/15 Sertraline HCl [Zoloft -] 25 mg PO DAILY tablet 11/12/15 metFORMIN HCL [Glucophage -] 500 mg PO BIDI tablet 11/12/15 Apixaban [Eliquis] 5 mg PO BID 12/22/15 Diltiazem Cd [Cardizem Cd -] 360 mg PO DAILY #60 cap.cd.24h 03/25/16 Furosemide [Lasix -] 40 mg PO DAILY 10/06/16 Aspirin Coated [Ecotrin -] 81 mg PO DAILY tablet.ec 05/22/17 Clopidogrel Bisulfate [Plavix -] 75 mg PO DAILY #30 tablet 05/22/17 Nystatin Powder [Nystop Powder -] 1 applic TP DAILY #1 applic 05/22/17 does not know meds needs med rec w [facility] REVIEW OF SYSTEMS CONSTITUTIONAL: Absent: fever, chills, diaphoresis, generalized weakness, malaise, loss of appetite, weight change HEENT: Absent: rhinorrhea, nasal congestion, throat pain, throat swelling, difficulty swallowing, mouth swelling, ear pain, eye pain, visual changes CARDIOVASCULAR: Absent: chest pain, syncope, palpitations, irregular heart rate, lightheadedness , peripheral edema RESPIRATORY: +cough, SOB Absent: cough, shortness of breath, dyspnea with exertion, orthopnea, wheezing, stridor, hemoptysis GASTROINTESTINAL: Absent: abdominal pain, abdominal distension, nausea, vomiting, diarrhea, constipation, melena, hematochezia GENITOURINARY: Absent: dysuria, frequency, urgency, hesitancy, hematuria, flank pain, genital pain MUSCULOSKELETAL: Absent: myalgia, arthralgia, joint swelling, back pain, neck pain SKIN: Absent: rash, itching, pallor HEMATOLOGIC/IMMUNOLOGIC: Absent: easy bleeding, easy bruising, lymphadenopathy, frequent infections ENDOCRINE: Absent: unexplained weight gain, unexplained weight loss, heat intolerance, cold intolerance NEUROLOGIC: Absent: headache, focal weakness or paresthesias, dizziness, unsteady gait, seizure, mental status changes, bladder or bowel incontinence PSYCHIATRIC: Absent: anxiety, depression, suicidal or homicidal ideation, hallucinations. PHYSICAL EXAMINATION Vital Signs - 24 hr 08/20/18 08/20/18 20:35 20:40 Temperature 101.1 F H 100.1 F H Pulse Rate 83 88 Pulse Rate [ 83 Radial] Respiratory 22 H 18 Rate Blood Pressure 124/73 140/62 Blood Pressure 124/73 [Left Arm] O2 Sat by Pulse 94 L 98 Oximetry (%) GENERAL: Awake, lying on her side. not on 02 sat well HEAD: Normal with no signs of trauma. EYES: Pupils equal, round and reactive to light, extraocular movements intact, sclera anicteric, conjunctiva clear. No lid lag. EARS, NOSE, THROAT: Ears normal, nares patent, oropharynx clear without exudates. Moist mucous membranes. NECK: Normal range of motion, supple LUNGS: +diminished breath sounds at bases. HEART: Regular rate and rhythm, normal S1 and S2 without murmur, rub or gallop. ABDOMEN: Soft, morbidly obese, nontender, not distended. +panniculitis w/ erythematous rash in abdominal folds LOWER EXTREMITIES: 2+ pt pulses, warm, well-perfused. +trace edema NEUROLOGICAL: Cranial nerves II-XII intact. PSYCHIATRIC: Cooperative. Laboratory Results 08/20/18 08/20/18 08/20/18 21:46 21:46 21:46 WBC 11.0 H Hgb 14.8 Hct 42.8 Plt Count 230 VBG pH 7.43 H POC VBG pCO2 37.6 L POC VBG pO2 113 H VBG O2 Sat (Mushtaq) 98.5 H Troponin I B-Natriuretic Peptide Ur Leukocyte Esterase 3+ H Urine WBC (Auto) 2614 Urine RBC (Auto) 65.8 Urine Casts (Auto) 86 08/20/18 21:46 VBG O2 Sat (Mushtaq) Random Glucose 218 H Troponin I 0.03 B-Natriuretic Peptide 3908.5 H Ur Leukocyte Esterase Urine Casts (Auto) CXR: possible +RML infiltrate, f/u official report ASSESSMENT/PLAN: 73 y/o F with PMH thoracic aortic aneurysm s/p repair, cerebral aneurysm s/p clipping, DM, HTN, HLD, diastolic CHF, afib, previous MIs/CAD s/p stents done at [facility] on 03/26 who presents to the ED c/o chest tightness x 1 day. #Chest tightness possible 2/2 acute diastolic CHF exac -elevated BNP, w/ chest tightness -s/p lasix 40mg IVP x 1 in ED -will c/w lasix 40mg IVP BID. f/u wts to determine if adequate diuresis -strict i/o, ECHO, na control 2g -trend trops. first (-) -f/u chest CT to check effusion vs. infiltrate #R/o PNA -f/u chest CT to determine if infiltrate -for now on rocephin to partially cover. can add zithro if needed for PNA once CT read back -incentive spirometer #panniculitis -will c/w nystatin ointment -c/w vanc, rocephin . need accurate wt, can redose vanco accordingly -f/u blood, ucx -ID consult: Dr. Tirso brown turning q2h #DM -hold oral agents -BGM, ISS ACHS -f/u a1c #cystitis -c/w rocephin -f/u blood, ucx #afib -c/w eliquis -c/w rate control cardiazem, metoprolol #CAD s/p stents -c/w plavix, asa #HLD -c/w lipitor #morbid obesity -will consult corn grinder -counseling #F/E/N no IVF at this time, as w CHF continue to follow lytes na controlled/cholesterol control/ diabetic diet #PPX DVT: on eliquis #Dispo admit to tele Visit type - Emergency Visit Emergency Visit: Yes ED Registration Date: 08/20/18 Care time: The patient presented to the Emergency Department on the above date and was hospitalized for further evaluation of their emergent condition. - New Patient This patient is new to me today: Yes Date on this admission: 08/21/18 - Critical Care Critical Care patient: No
[2018-08-21] MEDS ORDERED: AZITHROMYCIN IVPB 500 MG/250 ML BAG IVPB ONE (06:39)
[2018-08-21] MEDS ORDERED: methylPREDNISolone NA SUCC 125 MG/2 ML VIAL ONE (06:39)
[2018-08-21] MEDS ORDERED: CEFTRIAXONE 1 GM/50 ML BAG ONE ×2 (06:40→10:27)
[2018-08-21] MEDS ORDERED: FUROSEMIDE 40 MG/4 ML INJECTABLE VIAL ONE (06:40)
[2018-08-21] MEDS: FUROSEMIDE 40 MG/4 ML INJECTABLE VIAL IVPUSH SCH ×2 (08:13→14:16)
[2018-08-21] MEDS: NYSTATIN 100000 UNIT/GM TOPICAL OINTMENT 15 GM TUBE TP SCH ×2 (08:17→10:32)
[2018-08-21] MEDS: INSULIN SLIDING SCALE (NOVOLOG) 1 VIAL SQ SCH ×4 (08:40→22:26)
--- NOTE | 2018-08-21 09:10 | PN ---
Progress Note, Physician Chief Complaint: Ms Kan complains of chest pain that is much improved. Says coughing but non- productive and also improving. Denies sob, n/v. - Current Medication List Current Medications: Active Medications Apixaban (Eliquis -) 5 mg PO BID [facility] Aspirin (Ecotrin -) 81 mg PO DAILY [facility] Atorvastatin Calcium (Lipitor -) 40 mg PO HS [facility] Clopidogrel Bisulfate (Plavix -) 75 mg PO DAILY [facility] Diltiazem HCl (Cardizem Cd -) 360 mg PO DAILY [facility] Furosemide (Lasix Injection -) 40 mg IVPUSH BID@0600,1400 [facility] Last Admin: 08/21/18 08:13 Dose: 40 mg Ceftriaxone Sodium 1 gm/ (Dextrose) 50 mls @ 100 mls/hr IVPB DAILY [facility] Insulin Aspart (Novolog Vial Sliding Scale -) 1 vial SQ ACHS [facility]; Protocol Metoprolol Succinate (Toprol Xl -) 50 mg PO DAILY [facility] Nystatin (Mycostatin Ointment -) 1 applic TP BID [facility] Last Admin: 08/21/18 08:17 Dose: 1 applic Vancomycin HCl (Vancomycin (Pre-Docked)) 1,000 mg IVPB DAILY [facility]; Protocol Vancomycin HCl (Vancomycin (Pre-Docked)) 1,000 mg IVPB ONCE ONE Stop: 08/21/18 10:01 - Objective Vital Signs: Vital Signs Temperature 37.4 C 08/21/18 06:04 Pulse Rate 67 08/21/18 06:04 Respiratory Rate 22 H 08/21/18 06:04 Blood Pressure 143/49 L 08/21/18 06:04 O2 Sat by Pulse Oximetry (%) 94 L 08/21/18 06:04 Constitutional: Yes: No Distress, Calm, Obese Cardiovascular: Yes: Regular Rate and Rhythm. No: Gallop, Murmur, Rub Respiratory: Yes: Regular, CTA Bilaterally. No: Rales, Rhonchi, Wheezes Gastrointestinal: Yes: Normal Bowel Sounds, Soft, Other (panniculitis). No: Distention, Tenderness Extremities: Yes: WNL Edema: No Labs: CBC, BMP 08/20/18 21:46 08/20/18 21:46 Problem List - Problems (1) Panniculitis Assessment/Plan: -ID consulted -continue nystatin powder -vancomycin ordered, awaiting ID evaluation -monitor for improvement Code(s): M79.3 - PANNICULITIS, UNSPECIFIED (2) UTI (urinary tract infection) Assessment/Plan: -follow up cultures -continue rocephin Code(s): N39.0 - URINARY TRACT INFECTION, SITE NOT SPECIFIED Qualifiers: Urinary tract infection type: acute cystitis Hematuria presence: without hematuria Qualified Code(s): N30.00 - Acute cystitis without hematuria (3) Pneumonia Assessment/Plan: -questionable pneumonia -on rocephin -if CT scan positive, add azithromax Code(s): J18.9 - PNEUMONIA, UNSPECIFIED ORGANISM Qualifiers: Pneumonia type: due to unspecified organism Laterality: right Lung location: middle lobe of lung Qualified Code(s): J18.1 - Lobar pneumonia, unspecified organism (4) Chest pain Assessment/Plan: -sounds atypical -send troponin now -cardiology consulted to evaluate Code(s): R07.9 - CHEST PAIN, UNSPECIFIED (5) Coronary artery disease Assessment/Plan: -continue home regimen -cardiology consulted Code(s): I25.10 - ATHSCL HEART DISEASE OF [place] CORONARY ARTERY W/O ANG PCTRS (6) Morbid obesity Assessment/Plan: -will need outpatient weight loss program Code(s): E66.01 - MORBID (SEVERE) OBESITY DUE TO EXCESS CALORIES (7) Diabetes Assessment/Plan: -diabetic diet -FSBS and SSI Code(s): E11.9 - TYPE 2 DIABETES MELLITUS WITHOUT COMPLICATIONS Qualifiers: (8) HTN (hypertension), benign Assessment/Plan: -continue current regimen Code(s): I10 - ESSENTIAL (PRIMARY) HYPERTENSION (9) Hyperlipidemia Assessment/Plan: continue statin Code(s): E78.5 - HYPERLIPIDEMIA, UNSPECIFIED (10) CHF exacerbation Assessment/Plan: -on IV lasix -cardiology consulted Code(s): I50.9 - HEART FAILURE, UNSPECIFIED Qualifiers: Heart failure type: unspecified Qualified Code(s): I50.9 - Heart failure, unspecified
[2018-08-21 09:53] LABS: BASO % 0.5 % (0-2.0); EOS % 0.1 % (0-4.5); HEMATOCRIT 42.3 % (32.4-45.2); HEMOGLOBIN 14.6 GM/dL (10.7-15.3); LYMPH % 8.2 % (8-40); MCH 30.3 pg (25.7-33.7); MCHC 34.6 g/dl (32.0-36.0); MEAN CELL VOLUME 87.5 fl (80-96); MEAN PLT VOLUME 8.1 fl (7.5-11.1); MONO % 10.2 % (3.8-10.2); RBC 4.83 M/mm3 (3.60-5.2); RDW 15.2 % (11.6-15.6); WHITE BLOOD COUNT 8.4 K/mm3 (4.0-10.0)
[2018-08-21 09:57] LABS: PLATELET COUNT 220 K/MM3 (134-434)
[2018-08-21] MEDS ORDERED: VANCOMYCIN 1 GM in D5W (PRE-DOCKED) 1,000 MG/250 ML IVPB ONE (10:00)
[2018-08-21] MEDS ORDERED: CEFTRIAXONE 1 GM in DEXTROSE 5%-WATER - 50 ML IVPB SCH (10:00)
[2018-08-21] MEDS ORDERED: CEFTRIAXONE 1,000 MG in DEXTROSE 5%-WATER - 50 ML IVPB SCH (10:00)
[2018-08-21] MEDS ORDERED: VANCOMYCIN 1 GM in D5W (PRE-DOCKED) 1,000 MG/250 ML IVPB SCH (10:00)
[2018-08-21] MEDS ORDERED: PT OWN MED DRAWER 7, Y5N ONE (10:05)
[2018-08-21] MEDS ORDERED: INSULIN (NOVOLOG) ASPART 100 UNITS/ML 10ML VIAL ONE ×2 (10:05→13:00)
[2018-08-21 10:09] LABS: ANION GAP 7 MMOL/L (8-16); BLOOD UREA NITROGEN 13.4 mg/dL (7-18); CALCIUM 8.8 mg/dL (8.5-10.1); CHLORIDE 99 mmol/L (98-107); CO2 30 mmol/L (21-32); GLUCOSE,RANDOM 210 mg/dL (74-106); MAGNESIUM 2.1 mg/dL (1.8-2.4); POTASSIUM 3.4 mmol/L (3.5-5.1); SODIUM 136 mmol/L (136-145)
[2018-08-21] MEDS: ASPIRIN COATED 81 MG TABLET.EC PO SCH (10:31)
[2018-08-21] MEDS: APIXABAN 5 MG TABLET PO SCH ×2 (10:31→22:26)
[2018-08-21] MEDS: CLOPIDOGREL BISULFATE 75 MG TABLET (FP) PO SCH (10:32)
--- NOTE | 2018-08-21 14:16 | CON.ID ---
Consult Consult Specialty:: infectious diseases - Past Medical History Cardio/Vascular: Yes: AFIB, CAD, CHF, HTN, Hyperlipdemia, Other (PSVT in 2012) Pulmonary: Yes: COPD, Sleep Apnea (risks for FRANSISCA) Renal/: Yes: Renal Inusuff Psych: Yes: Anxiety Endocrine: Yes: Diabetes Mellitus Additional Medical History: Condition Date Treating Physician Comments. ASHD promus stent pLAD 2008. CHF diastolic. DM. GERD. HHD. HTN. Hyperlipidemia. Morbid obesity. Negative MIBI ST September 2011 And May 2013. SVT - Past Surgical History Past Surgical History: Yes: Stent - Alcohol/Substance Use Hx Alcohol Use: No - Smoking History Smoking history: Never smoked Have you smoked in the past 12 months: No Aproximately how many cigarettes per day: 0 If you are a former smoker, when did you quit?: 1969 - Social History Usual Living Arrangement: Other (with nephew; her daughter is close to her) History of Recent Travel: No Home Medications - Allergies Allergies/Adverse Reactions: Allergies Allergy/AdvReac Type Severity Reaction Status Date / Time pregabalin [From Lyrica] Allergy Intermediate Verified 08/20/18 20:40 budesonide [From Symbicort] Allergy Verified 08/20/18 20:40 celecoxib [From Celebrex] Allergy Verified 08/20/18 20:40 formoterol fumarate Allergy Verified 08/20/18 20:40 [From Symbicort] sulfacetamide sodium Allergy Verified 08/20/18 20:40 [From Sulfamide] - Home Medications Home Medications: Ambulatory Orders Atorvastatin Ca [Lipitor] 40 mg PO HS tablet 11/12/15 Metoprolol Succinate [Toprol XL -] 50 mg PO DAILY tab.sr.24h 11/12/15 Ranitidine [Zantac -] 150 mg PO BID tablet 11/12/15 Sertraline HCl [Zoloft -] 25 mg PO DAILY tablet 11/12/15 metFORMIN HCL [Glucophage -] 500 mg PO BIDI tablet 11/12/15 Apixaban [Eliquis] 5 mg PO BID 12/22/15 Diltiazem Cd [Cardizem Cd -] 360 mg PO DAILY #60 cap.cd.24h 03/25/16 Furosemide [Lasix -] 40 mg PO DAILY 10/06/16 Aspirin Coated [Ecotrin -] 81 mg PO DAILY tablet.ec 05/22/17 Clopidogrel Bisulfate [Plavix -] 75 mg PO DAILY #30 tablet 05/22/17 Nystatin Powder [Nystop Powder -] 1 applic TP DAILY #1 applic 05/22/17 Physical Exam Vital Signs: Vital Signs Temperature 99.3 F 08/21/18 06:04 Pulse Rate 67 08/21/18 06:04 Respiratory Rate 22 H 08/21/18 06:04 Blood Pressure 143/49 L 08/21/18 06:04 O2 Sat by Pulse Oximetry (%) 94 L 08/21/18 06:04 Labs: CBC, BMP 08/21/18 09:20 08/21/18 09:20
[2018-08-21] MEDS: NYSTATIN POWDER 100,000 UNITS/GM - 15 GM TOPICAL POWDER TP SCH (18:18)
[2018-08-21] MEDS: PIPERACILLIN/TAZOB 3.375 GM 3.375 GM in DEXTROSE 5%-WATER - 50 ML IVPB SCH ×2 (18:19→18:42)
[2018-08-21] MEDS ORDERED: DEXTROSE 5%-WATER - 50 ML IVPB ONE (18:20)
[2018-08-21] MEDS ORDERED: PIPERACILLIN/TAZOBACTAM 3.375 GM VIAL IVPB ONE (18:20)
[2018-08-21] MEDS: ATORVASTATIN CA 40 MG TABLET (FP) PO SCH (22:26)
[2018-08-22] MEDS ORDERED: PIPERACILLIN/TAZOBACTAM 3.375 GM VIAL IVPB ONE ×3 (00:28→17:09)
[2018-08-22] MEDS ORDERED: DEXTROSE 5%-WATER - 50 ML IVPB ONE ×3 (00:28→17:09)
[2018-08-22] MEDS: NYSTATIN POWDER 100,000 UNITS/GM - 15 GM TOPICAL POWDER TP SCH ×4 (00:34→22:20)
[2018-08-22] MEDS: PIPERACILLIN/TAZOB 3.375 GM 3.375 GM in DEXTROSE 5%-WATER - 50 ML IVPB SCH ×3 (03:01→17:11)
[2018-08-22] MEDS: FUROSEMIDE 40 MG/4 ML INJECTABLE VIAL IVPUSH SCH (06:46)
[2018-08-22] MEDS: INSULIN SLIDING SCALE (NOVOLOG) 1 VIAL SQ SCH ×4 (06:49→22:18)
[2018-08-22 07:23] LABS: BLOOD UREA NITROGEN 19.7 mg/dL (7-18); CREATININE 1.4 mg/dL (0.55-1.3); MAGNESIUM 2.2 mg/dL (1.8-2.4); PHOSPHOROUS 2.9 mg/dL (2.5-4.9); POTASSIUM 3.5 mmol/L (3.5-5.1)
[2018-08-22 07:46] LABS: BASO % 0.3 % (0-2.0); EOS % 0.1 % (0-4.5); HEMATOCRIT 44.2 % (32.4-45.2); HEMOGLOBIN 15.1 GM/dL (10.7-15.3); LYMPH % 7.5 % (8-40); MCHC 34.1 g/dl (32.0-36.0); MEAN CELL VOLUME 87.9 fl (80-96); MONO % 11.7 % (3.8-10.2); NEUT % 80.4 % (42.8-82.8); RBC 5.03 M/mm3 (3.60-5.2); RDW 15.1 % (11.6-15.6); WHITE BLOOD COUNT 10.6 K/mm3 (4.0-10.0)
[2018-08-22 08:45] LABS: PLATELET COUNT 279 K/MM3 (134-434)
[2018-08-22] MEDS: APIXABAN 5 MG TABLET PO SCH ×2 (09:12→22:17)
[2018-08-22] MEDS: CLOPIDOGREL BISULFATE 75 MG TABLET (FP) PO SCH (09:12)
[2018-08-22] MEDS: ASPIRIN COATED 81 MG TABLET.EC PO SCH (09:12)
[2018-08-22] MEDS ORDERED: VANCOMYCIN HCL 1,250 MG in DEXTROSE 5%-WATER - 250 ML IVPB SCH (10:00)
--- NOTE | 2018-08-22 13:36 | PN ---
Progress Note, Physician Chief Complaint: Ms Kan says she is feeling much better today. Is no longer having chest pain or coughing. Denies sob, n/v. - Current Medication List Current Medications: Active Medications Apixaban (Eliquis -) 5 mg PO BID [facility] Last Admin: 08/22/18 09:12 Dose: 5 mg Aspirin (Ecotrin -) 81 mg PO DAILY [facility] Last Admin: 08/22/18 09:12 Dose: 81 mg Atorvastatin Calcium (Lipitor -) 40 mg PO HS [facility] Last Admin: 08/21/18 22:26 Dose: 40 mg Clopidogrel Bisulfate (Plavix -) 75 mg PO DAILY [facility] Last Admin: 08/22/18 09:12 Dose: 75 mg Diltiazem HCl (Cardizem Cd -) 360 mg PO DAILY [facility] Last Admin: 08/22/18 09:12 Dose: 360 mg Piperacillin Sod/Tazobactam (Sod 3.375 gm/ Dextrose) 50 mls @ 100 mls/hr IVPB Q8H-IV [facility]; Protocol Last Admin: 08/22/18 09:13 Dose: 100 mls/hr Insulin Aspart (Novolog Vial Sliding Scale -) 1 vial SQ ACHS [facility]; Protocol Last Admin: 08/22/18 11:45 Dose: 4 units Metoprolol Succinate (Toprol Xl -) 50 mg PO DAILY [facility] Last Admin: 08/22/18 09:12 Dose: 50 mg Nystatin (Nystop Powder -) 1 applic TP TID [facility] Last Admin: 08/22/18 06:46 Dose: 1 applic - Objective Vital Signs: Vital Signs Temperature 37.6 C H 08/22/18 10:00 Pulse Rate 81 08/22/18 10:00 Respiratory Rate 22 H 08/22/18 10:00 Blood Pressure 130/66 08/22/18 10:00 O2 Sat by Pulse Oximetry (%) 92 L 08/22/18 09:00 Constitutional: Yes: No Distress, Calm, Obese Cardiovascular: Yes: Regular Rate and Rhythm. No: Gallop, Murmur, Rub Respiratory: Yes: Regular, CTA Bilaterally. No: Rales, Rhonchi, Wheezes Gastrointestinal: Yes: Normal Bowel Sounds, Soft. No: Distention, Tenderness Extremities: Yes: WNL Edema: No Integumentary: Yes: Erythema Labs: CBC, BMP 08/22/18 05:25 08/22/18 05:25 Problem List - Problems (1) Panniculitis Code(s): M79.3 - PANNICULITIS, UNSPECIFIED (2) UTI (urinary tract infection) Code(s): N39.0 - URINARY TRACT INFECTION, SITE NOT SPECIFIED Qualifiers: Urinary tract infection type: acute cystitis Hematuria presence: without hematuria Qualified Code(s): N30.00 - Acute cystitis without hematuria (3) Pneumonia Code(s): J18.9 - PNEUMONIA, UNSPECIFIED ORGANISM Qualifiers: Pneumonia type: due to unspecified organism Laterality: right Lung location: middle lobe of lung Qualified Code(s): J18.1 - Lobar pneumonia, unspecified organism (4) Chest pain Code(s): R07.9 - CHEST PAIN, UNSPECIFIED (5) Coronary artery disease Code(s): I25.10 - ATHSCL HEART DISEASE OF [place] CORONARY ARTERY W/O ANG PCTRS (6) Morbid obesity Code(s): E66.01 - MORBID (SEVERE) OBESITY DUE TO EXCESS CALORIES (7) Diabetes Code(s): E11.9 - TYPE 2 DIABETES MELLITUS WITHOUT COMPLICATIONS Qualifiers: (8) HTN (hypertension), benign Code(s): I10 - ESSENTIAL (PRIMARY) HYPERTENSION (9) Hyperlipidemia Code(s): E78.5 - HYPERLIPIDEMIA, UNSPECIFIED (10) CHF exacerbation Code(s): I50.9 - HEART FAILURE, UNSPECIFIED Qualifiers: Heart failure type: unspecified Qualified Code(s): I50.9 - Heart failure, unspecified Assessment/Plan (1) Panniculitis Assessment/Plan: -still very erythematous -ID following -continue zosyn and nystatin powder Code(s): M79.3 - PANNICULITIS, UNSPECIFIED (2) UTI (urinary tract infection) Assessment/Plan: -culture growing gram negative rods -continue zosyn per ID Code(s): N39.0 - URINARY TRACT INFECTION, SITE NOT SPECIFIED Qualifiers: Urinary tract infection type: acute cystitis Hematuria presence: without hematuria Qualified Code(s): N30.00 - Acute cystitis without hematuria (3) Pneumonia Assessment/Plan: -negative on CT scan Code(s): J18.9 - PNEUMONIA, UNSPECIFIED ORGANISM Qualifiers: Pneumonia type: due to unspecified organism Laterality: right Lung location: middle lobe of lung Qualified Code(s): J18.1 - Lobar pneumonia, unspecified organism (4) Chest pain Assessment/Plan: -resolved -troponin negative Code(s): R07.9 - CHEST PAIN, UNSPECIFIED (5) Coronary artery disease Assessment/Plan: -continue home regimen -cardiology consulted Code(s): I25.10 - ATHSCL HEART DISEASE OF [place] CORONARY ARTERY W/O ANG PCTRS (6) Morbid obesity Assessment/Plan: -will need outpatient weight loss program Code(s): E66.01 - MORBID (SEVERE) OBESITY DUE TO EXCESS CALORIES (7) Diabetes Assessment/Plan: -diabetic diet -FSBS and SSI Code(s): E11.9 - TYPE 2 DIABETES MELLITUS WITHOUT COMPLICATIONS Qualifiers: (8) HTN (hypertension), benign Assessment/Plan: -continue current regimen Code(s): I10 - ESSENTIAL (PRIMARY) HYPERTENSION (9) Hyperlipidemia Assessment/Plan: continue statin Code(s): E78.5 - HYPERLIPIDEMIA, UNSPECIFIED (10) CHF exacerbation Assessment/Plan: -not fluid overloaded -stop IV lasix -monitor renal function -restart oral lasix when creatinine returns to baseline Code(s): I50.9 - HEART FAILURE, UNSPECIFIED Qualifiers: Heart failure type: unspecified Qualified Code(s): I50.9 - Heart failure, unspecified
--- NOTE | 2018-08-22 13:50 | PN ---
Progress Note, Physician History of Present Illness: starting to feel beter still spiking fevers - Current Medication List Current Medications: Active Medications Apixaban (Eliquis -) 5 mg PO BID [facility] Last Admin: 08/22/18 09:12 Dose: 5 mg Aspirin (Ecotrin -) 81 mg PO DAILY [facility] Last Admin: 08/22/18 09:12 Dose: 81 mg Atorvastatin Calcium (Lipitor -) 40 mg PO HS [facility] Last Admin: 08/21/18 22:26 Dose: 40 mg Clopidogrel Bisulfate (Plavix -) 75 mg PO DAILY [facility] Last Admin: 08/22/18 09:12 Dose: 75 mg Diltiazem HCl (Cardizem Cd -) 360 mg PO DAILY [facility] Last Admin: 08/22/18 09:12 Dose: 360 mg Piperacillin Sod/Tazobactam (Sod 3.375 gm/ Dextrose) 50 mls @ 100 mls/hr IVPB Q8H-IV [facility]; Protocol Last Admin: 08/22/18 09:13 Dose: 100 mls/hr Insulin Aspart (Novolog Vial Sliding Scale -) 1 vial SQ ACHS [facility]; Protocol Last Admin: 08/22/18 11:45 Dose: 4 units Metoprolol Succinate (Toprol Xl -) 50 mg PO DAILY [facility] Last Admin: 08/22/18 09:12 Dose: 50 mg Nystatin (Nystop Powder -) 1 applic TP TID [facility] Last Admin: 08/22/18 13:42 Dose: 1 applic - Objective Vital Signs: Vital Signs Temperature 99.7 F H 08/22/18 10:00 Pulse Rate 81 08/22/18 10:00 Respiratory Rate 22 H 08/22/18 10:00 Blood Pressure 130/66 08/22/18 10:00 O2 Sat by Pulse Oximetry (%) 92 L 08/22/18 09:00 Constitutional: Yes: Calm, Mild Distress Cardiovascular: Yes: S1, S2 Respiratory: Yes: Regular, CTA Bilaterally Gastrointestinal: Yes: Normal Bowel Sounds, Soft Musculoskeletal: Yes: WNL Extremities: Yes: WNL Integumentary: Yes: Erythema, Other (fungal rash) Neurological: Yes: Alert, Oriented Psychiatric: Yes: Alert, Oriented Labs: CBC, BMP 08/22/18 05:25 08/22/18 05:25 Assessment/Plan Problem List - Problems (1) Panniculitis Code(s): M79.3 - PANNICULITIS, UNSPECIFIED (2) UTI (urinary tract infection) Code(s): N39.0 - URINARY TRACT INFECTION, SITE NOT SPECIFIED Qualifiers: Urinary tract infection type: acute cystitis Hematuria presence: without hematuria Qualified Code(s): N30.00 - Acute cystitis without hematuria (3) Pneumonia Code(s): J18.9 - PNEUMONIA, UNSPECIFIED ORGANISM Qualifiers: Pneumonia type: due to unspecified organism Laterality: right Lung location: middle lobe of lung Qualified Code(s): J18.1 - Lobar pneumonia, unspecified organism (4) Chest pain Code(s): R07.9 - CHEST PAIN, UNSPECIFIED (5) Coronary artery disease Code(s): I25.10 - ATHSCL HEART DISEASE OF [place] CORONARY ARTERY W/O ANG PCTRS (6) Morbid obesity Code(s): E66.01 - MORBID (SEVERE) OBESITY DUE TO EXCESS CALORIES (7) Diabetes Code(s): E11.9 - TYPE 2 DIABETES MELLITUS WITHOUT COMPLICATIONS Qualifiers: (8) HTN (hypertension), benign Code(s): I10 - ESSENTIAL (PRIMARY) HYPERTENSION (9) Hyperlipidemia Code(s): E78.5 - HYPERLIPIDEMIA, UNSPECIFIED (10) CHF exacerbation Code(s): I50.9 - HEART FAILURE, UNSPECIFIED Qualifiers: Heart failure type: unspecified Qualified Code(s): I50.9 - Heart failure, unspecified plan continue abx will stop vanco rest as per the team monitor rash
[2018-08-22] MEDS: ACETAMINOPHEN 325 MG TABLET (FP) PO PRN ×2 (15:00→20:28)
[2018-08-22] MEDS ORDERED: ONDANSETRON 4 MG/2 ML VIAL IVPUSH PRN (15:26)
--- NOTE | 2018-08-22 17:08 | EKG ---
Test Reason : Blood Pressure : / mmHG Vent. Rate : 089 BPM Atrial Rate : 089 BPM P-R Int : 150 ms QRS Dur : 086 ms QT Int : 402 ms P-R-T Axes : 017 -16 104 degrees QTc Int : 489 ms SINUS RHYTHM WITH PREMATURE SUPRAVENTRICULAR COMPLEXES LEFT VENTRICULAR HYPERTROPHY WITH REPOLARIZATION ABNORMALITY ABNORMAL ECG WHEN COMPARED WITH ECG OF 10-JUN-2018 01:21, NO SIGNIFICANT CHANGE WAS FOUND Confirmed by MD ALEJANDRA, RACHAEL ([id number]) on 08/22/2018 5:08:10 PM Referred By: Confirmed By:RACHAEL ROBERTS MD
[2018-08-22] MEDS: ATORVASTATIN CA 40 MG TABLET (FP) PO SCH (22:17)
[2018-08-23] MEDS ORDERED: PIPERACILLIN/TAZOBACTAM 3.375 GM VIAL IVPB ONE ×3 (01:01→18:05)
[2018-08-23] MEDS ORDERED: DEXTROSE 5%-WATER - 50 ML IVPB ONE ×3 (01:01→18:05)
[2018-08-23] MEDS: PIPERACILLIN/TAZOB 3.375 GM 3.375 GM in DEXTROSE 5%-WATER - 50 ML IVPB SCH ×3 (01:17→18:08)
[2018-08-23] MEDS: NYSTATIN POWDER 100,000 UNITS/GM - 15 GM TOPICAL POWDER TP SCH ×3 (06:11→21:41)
[2018-08-23] MEDS: INSULIN SLIDING SCALE (NOVOLOG) 1 VIAL SQ SCH ×4 (06:12→21:40)
[2018-08-23 07:59] LABS: BASO % 0.4 % (0-2.0); EOS % 0.8 % (0-4.5); HEMATOCRIT 41.7 % (32.4-45.2); HEMOGLOBIN 14.4 GM/dL (10.7-15.3); LYMPH % 14.2 % (8-40); MCH 29.9 pg (25.7-33.7); MCHC 34.6 g/dl (32.0-36.0); MEAN CELL VOLUME 86.6 fl (80-96); MEAN PLT VOLUME 8.7 fl (7.5-11.1); MONO % 13.7 % (3.8-10.2); NEUT % 70.9 % (42.8-82.8); RBC 4.82 M/mm3 (3.60-5.2); RDW 15.1 % (11.6-15.6); WHITE BLOOD COUNT 6.4 K/mm3 (4.0-10.0)
[2018-08-23 08:27] LABS: BLOOD UREA NITROGEN 28.5 mg/dL (7-18); CALCIUM 8.5 mg/dL (8.5-10.1); CREATININE 1.4 mg/dL (0.55-1.3); MAGNESIUM 2.3 mg/dL (1.8-2.4); PHOSPHOROUS 3.2 mg/dL (2.5-4.9); POTASSIUM 3.7 mmol/L (3.5-5.1)
--- NOTE | 2018-08-23 08:43 | CON.CARD ---
Consult Consult Specialty:: cardiology Reason for Consultation:: dyspnea; hx COPD, CAD, CHF - History of Present Illness Chief Complaint: Pt A&Ox3; +SOB on mild exertion; +cough (dry) History of Present Illness: The patient is a 73 year old white female, with a significant PMH of morbid obesity COPD,diastolic CHF, CAD s/p stent, DM, HTN, and Afib who presents to the emergency department with a progressively worsening cough for the past week , and SOB for the past 3 hours. The patient denies chest pain,, headache and dizziness. Denies nausea, vomiting, diarrhea and constipation. Denies dysuria, frequency, urgency and hematuria. Allergies: NKA - History Source History Provided By: Patient, Medical Record Limitations to Obtaining History: No Limitations - Past Medical History Cardio/Vascular: Yes: AFIB, CAD, CHF, HTN, Hyperlipdemia, Other (PSVT in 2011) Pulmonary: Yes: COPD, Sleep Apnea (risks for FRANSISCA) Renal/: Yes: Renal Inusuff ...: No Psych: Yes: Anxiety Endocrine: Yes: Diabetes Mellitus Additional Medical History: Condition Date Treating Physician Comments. ASHD promus stent pLAD 2008. CHF diastolic. DM. GERD. HHD. HTN. Hyperlipidemia. Morbid obesity. Negative MIBI ST September 2011 And May 2013. SVT - Past Surgical History Past Surgical History: Yes: Stent - Alcohol/Substance Use Hx Alcohol Use: No - Smoking History Smoking history: Never smoked Have you smoked in the past 12 months: No Aproximately how many cigarettes per day: 0 If you are a former smoker, when did you quit?: 1970 - Social History Usual Living Arrangement: Other (with nephew; her daughter is close to her) History of Recent Travel: No Home Medications - Allergies Allergies/Adverse Reactions: Allergies Allergy/AdvReac Type Severity Reaction Status Date / Time pregabalin [From Lyrica] Allergy Intermediate Verified 08/20/18 20:40 budesonide [From Symbicort] Allergy Verified 08/20/18 20:40 celecoxib [From Celebrex] Allergy Verified 08/20/18 20:40 formoterol fumarate Allergy Verified 08/20/18 20:40 [From Symbicort] sulfacetamide sodium Allergy Verified 08/20/18 20:40 [From Sulfamide] - Home Medications Home Medications: Ambulatory Orders Atorvastatin Ca [Lipitor] 40 mg PO HS tablet 11/12/15 Metoprolol Succinate [Toprol XL -] 50 mg PO DAILY tab.sr.24h 11/12/15 Ranitidine [Zantac -] 150 mg PO BID tablet 11/12/15 Sertraline HCl [Zoloft -] 25 mg PO DAILY tablet 11/12/15 metFORMIN HCL [Glucophage -] 500 mg PO BIDI tablet 11/12/15 Apixaban [Eliquis] 5 mg PO BID 12/22/15 Diltiazem Cd [Cardizem Cd -] 360 mg PO DAILY #60 cap.cd.24h 03/25/16 Furosemide [Lasix -] 40 mg PO DAILY 10/06/16 Aspirin Coated [Ecotrin -] 81 mg PO DAILY tablet.ec 05/22/17 Clopidogrel Bisulfate [Plavix -] 75 mg PO DAILY #30 tablet 05/22/17 Nystatin Powder [Nystop Powder -] 1 applic TP DAILY #1 applic 05/22/17 Family Disease History - Family Disease History Family History: Denies Review of Systems - Review of Systems Constitutional: reports: Weakness Eyes: reports: No Symptoms HENT: reports: No Symptoms Neck: reports: No Symptoms Cardiovascular: reports: Shortness of Breath Respiratory: reports: SOB Gastrointestinal: reports: No Symptoms Genitourinary: reports: No Symptoms Breasts: reports: No Symptoms Reported Musculoskeletal: reports: Muscle Weakness Integumentary: reports: No Symptoms Neurological: reports: No Symptoms Endocrine: reports: No Symptoms Hematology/Lymphatic: reports: No Symptoms Psychiatric: reports: Anxiety - Risk Factors Known Risk Factors: Yes: Age, Hypercholesterolemia, Hypertension, Physical Inactivity, Other (CAD; diastolic CHF; COPD; sedentary). No: Smoking Vital Signs: Vital Signs Temperature 98.7 F 08/23/18 06:00 Pulse Rate 60 08/23/18 06:00 Respiratory Rate 18 08/23/18 06:00 Blood Pressure 137/54 L 08/23/18 06:00 O2 Sat by Pulse Oximetry (%) 96 08/22/18 21:00 Constitutional: Yes: Anxious, Obese Eyes: Yes: WNL HENT: Yes: WNL Neck: Yes: WNL Respiratory: Yes: Diminished Renal/: No: Anuria Cardiovascular: Yes: Regular Rate and Rhythm JVD: No Carotid Bruit: No PMI: Non-Displaced Heart Sounds: Yes: S1, S2, S4 Murmur: Yes: Systolic Murmur, Grade 2 Musculoskeletal: Yes: Muscle Weakness Extremities: Yes: WNL Edema: No Peripheral Pulses WNL: Yes Integumentary: Yes: WNL Neurological: Yes: Alert, Oriented Psychiatric: Yes: WNL - Other Data Labs, Other Data: CBC, BMP 08/23/18 06:05 Troponin, BNP 08/22/18 05:25 Troponin I 0.02 Troponin, BNP 08/22/18 05:25 Troponin I 0.02 Ejection Fraction %: LVEF > or = 40 % Imaging - Results Chest X-ray: Image Reviewed EKG: Image Reviewed Problem List - Problems (1) COPD exacerbation Assessment/Plan: Bronchodilators, steroids, and O2 per drivers' cash clerk. Code(s): J44.1 - CHRONIC OBSTRUCTIVE PULMONARY DISEASE W (ACUTE) EXACERBATION (2) HTN (hypertension), benign Code(s): I10 - ESSENTIAL (PRIMARY) HYPERTENSION (3) Hyperlipidemia Assessment/Plan: statin; f/u lipid levels. Keep LDL < 70 mg/dl. Code(s): E78.5 - HYPERLIPIDEMIA, UNSPECIFIED (4) Obesity Assessment/Plan: dietary consult; however, compliance is poor. Code(s): E66.9 - OBESITY, UNSPECIFIED (5) SVT (supraventricular tachycardia) Assessment/Plan: on diltiazem for HR control, BP. Code(s): I47.1 - SUPRAVENTRICULAR TACHYCARDIA (6) Sleep apnea Assessment/Plan: CPAP per drivers' cash clerk. Code(s): G47.30 - SLEEP APNEA, UNSPECIFIED (7) History of heart artery stent Assessment/Plan: On ASA and clopidogrel. F/u records; will stop one antiplatelet if stent placed >one year ago (she is also on apixaban for PAF). Code(s): Z95.5 - PRESENCE OF CORONARY ANGIOPLASTY IMPLANT AND GRAFT (8) Paroxysmal atrial fibrillation Assessment/Plan: On diltiazem for HR control. On apixaban for anticoagulation. Code(s): I48.0 - PAROXYSMAL ATRIAL FIBRILLATION
--- NOTE | 2018-08-23 08:50 | PN ---
Progress Note, Physician Chief Complaint: Pt A&Ox3; lying in bed; no chest pain; not dyspneic. History of Present Illness: The patient is a 73 year old white female, with a significant PMH of morbid obesity COPD,diastolic CHF, CAD s/p stent, DM, HTN, and Afib who presents to the emergency department with a progressively worsening cough for the past week , and SOB for the past 3 hours. The patient denies chest pain,, headache and dizziness. Denies nausea, vomiting, diarrhea and constipation. Denies dysuria, frequency, urgency and hematuria. Allergies: NKA - Current Medication List Current Medications: Active Medications Acetaminophen (Tylenol -) 650 mg PO Q4H PRN PRN Reason: FEVER Last Admin: 08/22/18 20:28 Dose: 650 mg Apixaban (Eliquis -) 5 mg PO BID [facility] Last Admin: 08/22/18 22:17 Dose: 5 mg Aspirin (Ecotrin -) 81 mg PO DAILY [facility] Last Admin: 08/22/18 09:12 Dose: 81 mg Atorvastatin Calcium (Lipitor -) 40 mg PO HS [facility] Last Admin: 08/22/18 22:17 Dose: 40 mg Clopidogrel Bisulfate (Plavix -) 75 mg PO DAILY [facility] Last Admin: 08/22/18 09:12 Dose: 75 mg Diltiazem HCl (Cardizem Cd -) 360 mg PO DAILY [facility] Last Admin: 08/22/18 09:12 Dose: 360 mg Piperacillin Sod/Tazobactam (Sod 3.375 gm/ Dextrose) 50 mls @ 100 mls/hr IVPB Q8H-IV [facility]; Protocol Last Admin: 08/23/18 01:17 Dose: 100 mls/hr Insulin Aspart (Novolog Vial Sliding Scale -) 1 vial SQ ACHS [facility]; Protocol Last Admin: 08/23/18 06:12 Dose: 2 units Metoprolol Succinate (Toprol Xl -) 50 mg PO DAILY [facility] Last Admin: 08/22/18 09:12 Dose: 50 mg Nystatin (Nystop Powder -) 1 applic TP TID [facility] Last Admin: 08/23/18 06:11 Dose: 1 applic Ondansetron HCl (Zofran Injection) 4 mg IVPUSH Q6H PRN PRN Reason: NAUSEA - Objective Vital Signs: Vital Signs Temperature 98.7 F 08/23/18 06:00 Pulse Rate 60 06/17/19 06:00 Respiratory Rate 18 08/23/18 06:00 Blood Pressure 137/54 L 08/23/18 06:00 O2 Sat by Pulse Oximetry (%) 96 08/22/18 21:00 Constitutional: Yes: No Distress Eyes: Yes: WNL HENT: Yes: WNL Neck: Yes: WNL Cardiovascular: Yes: Regular Rate and Rhythm, S1, S2, S4 Respiratory: Yes: Diminished, On Nasal O2 Gastrointestinal: Yes: Soft, Abdomen, Obese ...Rectal Exam: Yes: Deferred Genitourinary: No: Anuria Breast(s): Yes: WNL Musculoskeletal: Yes: Joint Stiffness, Muscle Weakness Extremities: Yes: WNL Edema: No Peripheral Pulses WNL: Yes Integumentary: Yes: WNL Neurological: Yes: WNL Psychiatric: Yes: WNL Labs: CBC, BMP 08/23/18 06:05 - ....Imaging Chest X-ray: Image Reviewed Cat Scan: Image Reviewed (no acute pathology; s/p right thoracotomy) EKG: Image Reviewed Other: Image Reviewed (telemetry: NSR; occasional APC and PVCs) Problem List - Problems (1) COPD exacerbation Assessment/Plan: Continue bronchodilators, steroids, antibiotics, and O2 per communications manager. Code(s): J44.1 - CHRONIC OBSTRUCTIVE PULMONARY DISEASE W (ACUTE) EXACERBATION (2) HTN (hypertension), benign Code(s): I10 - ESSENTIAL (PRIMARY) HYPERTENSION (3) Hyperlipidemia Assessment/Plan: statin; f/u lipid levels. Keep LDL < 70 mg/dl. Code(s): E78.5 - HYPERLIPIDEMIA, UNSPECIFIED (4) SVT (supraventricular tachycardia) Assessment/Plan: on diltiazem and metoprolol for HR control, BP. Code(s): I47.1 - SUPRAVENTRICULAR TACHYCARDIA (5) Sleep apnea Assessment/Plan: CPAP per communications manager. Code(s): G47.30 - SLEEP APNEA, UNSPECIFIED (6) History of heart artery stent Assessment/Plan: On ASA and clopidogrel. F/u records; will stop one antiplatelet if stent placed >one year ago (she is also on apixaban for PAF). Code(s): Z95.5 - PRESENCE OF CORONARY ANGIOPLASTY IMPLANT AND GRAFT (7) Paroxysmal atrial fibrillation Assessment/Plan: On diltiazem and metoprolol for HR control. On apixaban for anticoagulation. Code(s): I48.0 - PAROXYSMAL ATRIAL FIBRILLATION (8) Morbid obesity Assessment/Plan: dietary/nutrition consult Code(s): E66.01 - MORBID (SEVERE) OBESITY DUE TO EXCESS CALORIES
--- NOTE | 2018-08-23 08:55 | PN ---
Progress Note, Physician History of Present Illness: 73YOF with h/o CAD s/p stent (x1 2008), COPD, CHF, thoracic aortic aneurysm s/p repair, cerebral aneurysm s/p clipping, DM, HTN, Afib (on eliquis), and morbid obesity. She presents with cough/sore throat worsening for the past week with 2- 3 hours of increased SOB and wheezing. The patient states she has been taking all her medications as she is supposed to, including her diuretics. She does not have any breathing treatments left at home. She has had much worse BARBOZA than normal lately, denies any new leg swelling or calf pain, a little bit of right hip/thigh pain. States she does not monitor her weight closely at home. Has chills but denies measured fever, n/v/d/c, chest pain, back pain, abdominal pain , or other symptoms. Past History Ongoing medical problems ASHD promus stent pLAD 2008 PCI RCA 05/27/17 Atrial fibrillation 2016 CHF diastolic DM GERD HHD HTN Hyperlipidemia Morbid obesity Negative MIBI ST September 2011, March 2015 - Current Medication List Current Medications: Active Medications Acetaminophen (Tylenol -) 650 mg PO Q4H PRN PRN Reason: FEVER Last Admin: 08/22/18 20:28 Dose: 650 mg Apixaban (Eliquis -) 5 mg PO BID [facility] Last Admin: 08/22/18 22:17 Dose: 5 mg Aspirin (Ecotrin -) 81 mg PO DAILY [facility] Last Admin: 08/22/18 09:12 Dose: 81 mg Atorvastatin Calcium (Lipitor -) 40 mg PO HS [facility] Last Admin: 08/22/18 22:17 Dose: 40 mg Clopidogrel Bisulfate (Plavix -) 75 mg PO DAILY [facility] Last Admin: 08/22/18 09:12 Dose: 75 mg Diltiazem HCl (Cardizem Cd -) 360 mg PO DAILY [facility] Last Admin: 08/22/18 09:12 Dose: 360 mg Piperacillin Sod/Tazobactam (Sod 3.375 gm/ Dextrose) 50 mls @ 100 mls/hr IVPB Q8H-IV [facility]; Protocol Last Admin: 08/23/18 01:17 Dose: 100 mls/hr Insulin Aspart (Novolog Vial Sliding Scale -) 1 vial SQ ACHS [facility]; Protocol Last Admin: 06/17/19 06:12 Dose: 2 units Metoprolol Succinate (Toprol Xl -) 50 mg PO DAILY [facility] Last Admin: 08/22/18 09:12 Dose: 50 mg Nystatin (Nystop Powder -) 1 applic TP TID [facility] Last Admin: 08/23/18 06:11 Dose: 1 applic Ondansetron HCl (Zofran Injection) 4 mg IVPUSH Q6H PRN PRN Reason: NAUSEA - Objective Vital Signs: Vital Signs Temperature 98.7 F 08/23/18 06:00 Pulse Rate 60 08/23/18 06:00 Respiratory Rate 18 08/23/18 06:00 Blood Pressure 137/54 L 08/23/18 06:00 O2 Sat by Pulse Oximetry (%) 96 08/22/18 21:00 Eyes: Yes: WNL, Conjunctiva Clear, EOM Intact HENT: Yes: WNL, Atraumatic, Normocephalic Neck: Yes: WNL, Supple, Trachea Midline Cardiovascular: Yes: Pulse Irregular, Murmur Respiratory: Yes: WNL, Regular, CTA Bilaterally Gastrointestinal: Yes: WNL, Normal Bowel Sounds Genitourinary: Yes: WNL Musculoskeletal: Yes: WNL Extremities: Yes: WNL Edema: No Integumentary: Yes: WNL Neurological: Yes: WNL, Alert, Oriented ...Motor Strength: WNL Psychiatric: Yes: WNL Labs: CBC, BMP 08/23/18 06:05 Assessment/Plan - Problems (1) COPD exacerbation Assessment/Plan: Bronlchodilators, steroids, and O2 per clinical staff anesthesiologist. Code(s): J44.1 - CHRONIC OBSTRUCTIVE PULMONARY DISEASE W (ACUTE) EXACERBATION (2) HTN (hypertension), benign Code(s): I10 - ESSENTIAL (PRIMARY) HYPERTENSION (3) Hyperlipidemia Assessment/Plan: statin; f/u lipid levels. Keep LDL < 70 mg/dl. Code(s): E78.5 - HYPERLIPIDEMIA, UNSPECIFIED (4) Obesity Assessment/Plan: dietary consult; however, compliance is poor. Code(s): E66.9 - OBESITY, UNSPECIFIED (5) SVT (supraventricular tachycardia) Assessment/Plan: on diltiazem and metoprolol for HR control, BP. Code(s): I47.1 - SUPRAVENTRICULAR TACHYCARDIA (6) Sleep apnea Assessment/Plan: CPAP per clinical staff anesthesiologist. Code(s): G47.30 - SLEEP APNEA, UNSPECIFIED (7) History of heart artery stent Code(s): Z95.5 - PRESENCE OF CORONARY ANGIOPLASTY IMPLANT AND GRAFT (8) Paroxysmal atrial fibrillation Assessment/Plan: On diltiazem and metoprolol for HR control. On apixaban for anticoagulation. Code(s): I48.0 - PAROXYSMAL ATRIAL FIBRILLATION
[2018-08-23 09:09] LABS: PLATELET COUNT 258 K/MM3 (134-434)
[2018-08-23] MEDS: ASPIRIN COATED 81 MG TABLET.EC PO SCH (10:03)
[2018-08-23] MEDS: APIXABAN 5 MG TABLET PO SCH ×2 (10:03→21:37)
[2018-08-23] MEDS: CLOPIDOGREL BISULFATE 75 MG TABLET (FP) PO SCH (10:04)
--- NOTE | 2018-08-23 10:57 | PN ---
Progress Note, Physician Chief Complaint: Ms Kan says she is feeling better, but she feels a little weak. Denies cp, sob, n/v. - Current Medication List Current Medications: Active Medications Acetaminophen (Tylenol -) 650 mg PO Q4H PRN PRN Reason: FEVER Last Admin: 08/22/18 20:28 Dose: 650 mg Apixaban (Eliquis -) 5 mg PO BID [facility] Last Admin: 08/23/18 10:03 Dose: 5 mg Aspirin (Ecotrin -) 81 mg PO DAILY [facility] Last Admin: 08/23/18 10:03 Dose: 81 mg Atorvastatin Calcium (Lipitor -) 40 mg PO HS [facility] Last Admin: 08/22/18 22:17 Dose: 40 mg Clopidogrel Bisulfate (Plavix -) 75 mg PO DAILY [facility] Last Admin: 08/23/18 10:04 Dose: 75 mg Diltiazem HCl (Cardizem Cd -) 360 mg PO DAILY [facility] Last Admin: 08/23/18 10:04 Dose: 360 mg Piperacillin Sod/Tazobactam (Sod 3.375 gm/ Dextrose) 50 mls @ 100 mls/hr IVPB Q8H-IV [facility]; Protocol Last Admin: 08/23/18 10:03 Dose: 100 mls/hr Insulin Aspart (Novolog Vial Sliding Scale -) 1 vial SQ ACHS [facility]; Protocol Last Admin: 08/23/18 06:12 Dose: 2 units Metoprolol Succinate (Toprol Xl -) 50 mg PO DAILY [facility] Last Admin: 08/23/18 10:03 Dose: 50 mg Nystatin (Nystop Powder -) 1 applic TP TID [facility] Last Admin: 08/23/18 06:11 Dose: 1 applic Ondansetron HCl (Zofran Injection) 4 mg IVPUSH Q6H PRN PRN Reason: NAUSEA - Objective Vital Signs: Vital Signs Temperature 36.7 C 08/23/18 10:00 Pulse Rate 69 08/23/18 10:00 Respiratory Rate 20 08/23/18 10:00 Blood Pressure 137/59 L 08/23/18 10:00 O2 Sat by Pulse Oximetry (%) 96 08/23/18 09:00 Constitutional: Yes: No Distress, Calm, Obese Cardiovascular: Yes: Regular Rate and Rhythm. No: Gallop, Murmur, Rub Respiratory: Yes: Regular, CTA Bilaterally. No: Rales, Rhonchi, Wheezes Gastrointestinal: Yes: Normal Bowel Sounds, Soft. No: Distention, Tenderness Extremities: Yes: WNL Edema: No Integumentary: Yes: Erythema (slightly improved) Labs: CBC, BMP 08/23/18 06:05 08/23/18 06:05 Problem List - Problems (1) Panniculitis Code(s): M79.3 - PANNICULITIS, UNSPECIFIED (2) UTI (urinary tract infection) Code(s): N39.0 - URINARY TRACT INFECTION, SITE NOT SPECIFIED Qualifiers: Urinary tract infection type: acute cystitis Hematuria presence: without hematuria Qualified Code(s): N30.00 - Acute cystitis without hematuria (3) Pneumonia Code(s): J18.9 - PNEUMONIA, UNSPECIFIED ORGANISM Qualifiers: Pneumonia type: due to unspecified organism Laterality: right Lung location: middle lobe of lung Qualified Code(s): J18.1 - Lobar pneumonia, unspecified organism (4) Chest pain Code(s): R07.9 - CHEST PAIN, UNSPECIFIED (5) Coronary artery disease Code(s): I25.10 - ATHSCL HEART DISEASE OF [place] CORONARY ARTERY W/O ANG PCTRS (6) Morbid obesity Code(s): E66.01 - MORBID (SEVERE) OBESITY DUE TO EXCESS CALORIES (7) Diabetes Code(s): E11.9 - TYPE 2 DIABETES MELLITUS WITHOUT COMPLICATIONS Qualifiers: (8) HTN (hypertension), benign Code(s): I10 - ESSENTIAL (PRIMARY) HYPERTENSION (9) Hyperlipidemia Code(s): E78.5 - HYPERLIPIDEMIA, UNSPECIFIED (10) CHF exacerbation Code(s): I50.9 - HEART FAILURE, UNSPECIFIED Qualifiers: Heart failure type: unspecified Qualified Code(s): I50.9 - Heart failure, unspecified Assessment/Plan (1) Panniculitis Assessment/Plan: -erythematous but improving -ID following -continue zosyn and nystatin powder Code(s): M79.3 - PANNICULITIS, UNSPECIFIED (2) UTI (urinary tract infection) Assessment/Plan: -culture growing gram negative rods -continue zosyn per ID Code(s): N39.0 - URINARY TRACT INFECTION, SITE NOT SPECIFIED Qualifiers: Urinary tract infection type: acute cystitis Hematuria presence: without hematuria Qualified Code(s): N30.00 - Acute cystitis without hematuria (3) Pneumonia Assessment/Plan: -negative on CT scan Code(s): J18.9 - PNEUMONIA, UNSPECIFIED ORGANISM Qualifiers: Pneumonia type: due to unspecified organism Laterality: right Lung location: middle lobe of lung Qualified Code(s): J18.1 - Lobar pneumonia, unspecified organism (4) Chest pain Assessment/Plan: -resolved -troponin negative -can transfer to med/surg today Code(s): R07.9 - CHEST PAIN, UNSPECIFIED (5) Coronary artery disease Assessment/Plan: -continue home regimen Code(s): I25.10 - ATHSCL HEART DISEASE OF [place] CORONARY ARTERY W/O ANG PCTRS (6) Morbid obesity Assessment/Plan: -will need outpatient weight loss program Code(s): E66.01 - MORBID (SEVERE) OBESITY DUE TO EXCESS CALORIES (7) Diabetes Assessment/Plan: -diabetic diet -FSBS and SSI Code(s): E11.9 - TYPE 2 DIABETES MELLITUS WITHOUT COMPLICATIONS Qualifiers: (8) HTN (hypertension), benign Assessment/Plan: -continue current regimen Code(s): I10 - ESSENTIAL (PRIMARY) HYPERTENSION (9) Hyperlipidemia Assessment/Plan: continue statin Code(s): E78.5 - HYPERLIPIDEMIA, UNSPECIFIED (10) CHF exacerbation Assessment/Plan: -not fluid overloaded -continue to hold lasix -monitor renal function Code(s): I50.9 - HEART FAILURE, UNSPECIFIED Qualifiers: Heart failure type: unspecified Qualified Code(s): I50.9 - Heart failure, unspecified
--- NOTE | 2018-08-23 10:57 | PN ---
Progress Note, Physician History of Present Illness: stable much better - Current Medication List Current Medications: Active Medications Acetaminophen (Tylenol -) 650 mg PO Q4H PRN PRN Reason: FEVER Last Admin: 08/22/18 20:28 Dose: 650 mg Apixaban (Eliquis -) 5 mg PO BID [facility] Last Admin: 08/23/18 10:03 Dose: 5 mg Aspirin (Ecotrin -) 81 mg PO DAILY [facility] Last Admin: 08/23/18 10:03 Dose: 81 mg Atorvastatin Calcium (Lipitor -) 40 mg PO HS [facility] Last Admin: 08/22/18 22:17 Dose: 40 mg Clopidogrel Bisulfate (Plavix -) 75 mg PO DAILY [facility] Last Admin: 08/23/18 10:04 Dose: 75 mg Diltiazem HCl (Cardizem Cd -) 360 mg PO DAILY [facility] Last Admin: 08/23/18 10:04 Dose: 360 mg Piperacillin Sod/Tazobactam (Sod 3.375 gm/ Dextrose) 50 mls @ 100 mls/hr IVPB Q8H-IV [facility]; Protocol Last Admin: 08/23/18 10:03 Dose: 100 mls/hr Insulin Aspart (Novolog Vial Sliding Scale -) 1 vial SQ ACHS [facility]; Protocol Last Admin: 08/23/18 06:12 Dose: 2 units Metoprolol Succinate (Toprol Xl -) 50 mg PO DAILY [facility] Last Admin: 08/23/18 10:03 Dose: 50 mg Nystatin (Nystop Powder -) 1 applic TP TID [facility] Last Admin: 08/23/18 06:11 Dose: 1 applic Ondansetron HCl (Zofran Injection) 4 mg IVPUSH Q6H PRN PRN Reason: NAUSEA - Objective Vital Signs: Vital Signs Temperature 98.1 F 08/23/18 10:00 Pulse Rate 69 08/23/18 10:00 Respiratory Rate 20 08/23/18 10:00 Blood Pressure 137/59 L 08/23/18 10:00 O2 Sat by Pulse Oximetry (%) 96 08/23/18 09:00 Constitutional: Yes: No Distress, Calm Cardiovascular: Yes: S1, S2 Respiratory: Yes: Regular, CTA Bilaterally Gastrointestinal: Yes: Normal Bowel Sounds, Soft Musculoskeletal: Yes: WNL Extremities: Yes: WNL Neurological: Yes: Alert, Oriented Psychiatric: Yes: Alert, Oriented Labs: CBC, BMP 08/23/18 06:05 08/23/18 06:05 Assessment/Plan Problem List - Problems (1) Panniculitis Code(s): M79.3 - PANNICULITIS, UNSPECIFIED (2) UTI (urinary tract infection) Code(s): N39.0 - URINARY TRACT INFECTION, SITE NOT SPECIFIED Qualifiers: Urinary tract infection type: acute cystitis Hematuria presence: without hematuria Qualified Code(s): N30.00 - Acute cystitis without hematuria (3) Pneumonia Code(s): J18.9 - PNEUMONIA, UNSPECIFIED ORGANISM Qualifiers: Pneumonia type: due to unspecified organism Laterality: right Lung location: middle lobe of lung Qualified Code(s): J18.1 - Lobar pneumonia, unspecified organism (4) Chest pain Code(s): R07.9 - CHEST PAIN, UNSPECIFIED (5) Coronary artery disease Code(s): I25.10 - ATHSCL HEART DISEASE OF [place] CORONARY ARTERY W/O ANG PCTRS (6) Morbid obesity Code(s): E66.01 - MORBID (SEVERE) OBESITY DUE TO EXCESS CALORIES (7) Diabetes Code(s): E11.9 - TYPE 2 DIABETES MELLITUS WITHOUT COMPLICATIONS Qualifiers: (8) HTN (hypertension), benign Code(s): I10 - ESSENTIAL (PRIMARY) HYPERTENSION (9) Hyperlipidemia Code(s): E78.5 - HYPERLIPIDEMIA, UNSPECIFIED (10) CHF exacerbation Code(s): I50.9 - HEART FAILURE, UNSPECIFIED Qualifiers: Heart failure type: unspecified Qualified Code(s): I50.9 - Heart failure, unspecified plan continue abx await for identification of the bacteria rest as per the team monitor rash urine cx result noted
--- NOTE | 2018-08-23 12:49 | ECHO ---
Name: LUBA DOLL Exam:Adult Echocardiogram Study Date: 08/23/2018 10:14 AM Age: 73 yrs Reason For Study: EVALUATE FOR CHF Height: 63 in Weight: 277 lb BSA: 2.2 m2 MMode/2D Measurements & Calculations IVSd: 0.98 cm Ao root diam: 2.6 cm LVIDd: 5.5 cm LA dimension: 3.9 cm LVIDs: 3.5 cm LVPWd: 1.00 cm EDV(Teich): 146.9 ml LVOT diam: 2.2 cm ESV(Teich): 51.4 ml Doppler Measurements & Calculations MV E max kalyan: 57.8 cm/sec Ao V2 max: 175.5 cm/sec MV A max kalyan: 89.3 cm/sec Ao max P.3 mmHg MV E/A: 0.65 Ao V2 mean: 122.2 cm/sec MV dec time: 0.29 sec Ao mean P.8 mmHg Ao V2 VTI: 31.4 cm DENNIS(I,D): 2.1 cm2 DENNIS(V,D): 1.9 cm2 LV V1 max P.2 mmHg SV(LVOT): 64.6 ml LV V1 mean P.3 mmHg LV V1 max: 89.1 cm/sec LV V1 mean: 50.9 cm/sec LV V1 VTI: 17.4 cm TR max kalyan: 212.8 cm/sec Med Peak E' Kalyan: 4.6 cm/sec TR max P.1 mmHg Med E/e': 12.5 Lat Peak E' Kalyan: 3.9 cm/sec Lat E/e': 14.6 Procedure The study was technically adequate with some images being suboptimal in quality. Left Ventricle The left ventricular size, thickness and function are normal. Ejection Fraction = 65-70%. Grade I kelsi stolic dysfunction, (abnormal relaxation pattern). Right Ventricle The right ventricle is normal in size and function. A moderator band is seen in the right ventricle. Atria The left atrium is borderline dilated. Right atrial size is normal. Mitral Valve There is mild mitral annular calcification. The mitral valve is grossly normal. There is trace mitral regurgitation. Tricuspid Valve The tricuspid valve is not well visualized, but is grossly normal. There is trace tricuspid regurgita tion. There was insufficient TR detected to calculate RV systolic pressure. Aortic Valve The aortic valve opens well. The aortic valve is trileaflet. Trace aortic regurgitation. Pulmonic Valve The pulmonic valve is not well visualized. Pericardium/Pleura There is no pericardial effusion. Interpretation Summary Compared to the prior echo report on 09/08/2017, there is no significant change. The left ventricular size, thickness and function are normal The right ventricle is normal in size and function. There is mild mitral annular calcification. Trace aortic regurgitation. There is trace mitral regurgitation. Ejection Fraction = 65-70%. There is trace tricuspid regurgitation. The left atrium is borderline dilated. Grade I diastolic dysfunction, (abnormal relaxation pattern). Compared to the prior echo report on 09/08/2017, there is no significant change. Keith Webb MD 08/23/2018 12:49 PM
[2018-08-23] MEDS ORDERED: INSULIN (NOVOLOG) ASPART 100 UNITS/ML 10ML VIAL ONE (21:28)
[2018-08-23] MEDS: ATORVASTATIN CA 40 MG TABLET (FP) PO SCH (21:37)
[2018-08-24] MEDS ORDERED: DEXTROSE 5%-WATER - 50 ML IVPB ONE ×3 (01:22→17:49)
[2018-08-24] MEDS ORDERED: PIPERACILLIN/TAZOBACTAM 3.375 GM VIAL IVPB ONE ×3 (01:22→17:49)
[2018-08-24] MEDS: PIPERACILLIN/TAZOB 3.375 GM 3.375 GM in DEXTROSE 5%-WATER - 50 ML IVPB SCH ×3 (01:30→17:51)
[2018-08-24] MEDS: NYSTATIN POWDER 100,000 UNITS/GM - 15 GM TOPICAL POWDER TP SCH ×3 (06:23→21:10)
[2018-08-24] MEDS: INSULIN SLIDING SCALE (NOVOLOG) 1 VIAL SQ SCH ×4 (06:24→21:09)
[2018-08-24 08:10] LABS: BASO % 0.8 % (0-2.0); EOS % 2.7 % (0-4.5); HEMATOCRIT 38.9 % (32.4-45.2); HEMOGLOBIN 13.5 GM/dL (10.7-15.3); LYMPH % 22.9 % (8-40); MCH 29.9 pg (25.7-33.7); MCHC 34.7 g/dl (32.0-36.0); MEAN CELL VOLUME 86.1 fl (80-96); MEAN PLT VOLUME 8.6 fl (7.5-11.1); MONO % 16.4 % (3.8-10.2); NEUT % 57.2 % (42.8-82.8); PLATELET COUNT 258 K/MM3 (134-434); RBC 4.52 M/mm3 (3.60-5.2); WHITE BLOOD COUNT 5.6 K/mm3 (4.0-10.0)
[2018-08-24 08:20] LABS: BLOOD UREA NITROGEN 26.7 mg/dL (7-18); CALCIUM 8.9 mg/dL (8.5-10.1); CREATININE 1.2 mg/dL (0.55-1.3); MAGNESIUM 2.5 mg/dL (1.8-2.4); PHOSPHOROUS 3.6 mg/dL (2.5-4.9); POTASSIUM 3.5 mmol/L (3.5-5.1)
[2018-08-24] MEDS: APIXABAN 5 MG TABLET PO SCH ×2 (09:56→21:09)
[2018-08-24] MEDS: ASPIRIN COATED 81 MG TABLET.EC PO SCH (09:56)
[2018-08-24] MEDS: CLOPIDOGREL BISULFATE 75 MG TABLET (FP) PO SCH (09:56)
--- NOTE | 2018-08-24 10:36 | PN ---
Physical Exam: SUBJECTIVE: Patient seen and examined resting in chair nad. afebrile hemodynamically stable. no acute events. feels at baseline, denies chest discomfort, sob, cough. OBJECTIVE: Vital Signs Period Temp Pulse Resp BP Sys/Bowen Pulse Ox Last 24 Hr 97.9 F-98.6 F 57-75 18-20 119-137/59-93 93-93 GENERAL: The patient is awake, alert, and fully oriented, in no acute distress. HEAD: Normal with no signs of trauma. EYES: PERRL, extraocular movements intact, sclera anicteric, conjunctiva clear. No ptosis. ENT: moist mucous membranes. NECK: supple. LUNGS: Breath sounds equal, clear to auscultation bilaterally HEART: Regular rate and rhythm, S1, S2 mild systolic murmur ABDOMEN: obese, Soft, nontender, nondistended, normoactive bowel sounds, EXTREMITIES: warm, well-perfused, no edema. NEUROLOGICAL: Cranial nerves II through XII grossly intact. Normal speech, gait not observed. PSYCH: Normal mood, normal affect. SKIN: Warm, dry erythema in abdominal folds Laboratory Results - last 24 hr 08/23/18 08/23/18 08/24/18 17:36 21:36 05:35 WBC RBC Hgb Hct MCV MCH MCHC RDW Plt Count MPV Absolute Neuts (auto) Neutrophils % Lymphocytes % Monocytes % Eosinophils % Basophils % Nucleated RBC % Sodium Potassium Chloride Carbon Dioxide Anion Gap BUN Creatinine Est GFR (CKD-EPI)AfAm Est GFR (CKD-EPI)NonAf POC Glucometer 196 261 200 Random Glucose Calcium Phosphorus Magnesium 08/24/18 08/24/18 06:03 06:03 WBC 5.6 RBC 4.52 Hgb 13.5 Hct 38.9 MCV 86.1 MCH 29.9 MCHC 34.7 RDW 15.0 Plt Count 258 MPV 8.6 Absolute Neuts (auto) 3.2 Neutrophils % 57.2 Lymphocytes % 22.9 D Monocytes % 16.4 H Eosinophils % 2.7 D Basophils % 0.8 Nucleated RBC % 0 Sodium 136 Potassium 3.5 Chloride 97 L Carbon Dioxide 29 Anion Gap 10 BUN 26.7 H Creatinine 1.2 Est GFR (CKD-EPI)AfAm 51.56 Est GFR (CKD-EPI)NonAf 44.48 POC Glucometer Random Glucose 189 H Calcium 8.9 Phosphorus 3.6 Magnesium 2.5 H Active Medications Generic Name Dose Route Start Last Admin Trade Name Freq PRN Reason Stop Dose Admin Acetaminophen 650 mg 08/22/18 15:26 08/22/18 20:28 Tylenol - PO 650 mg Q4H PRN Administration FEVER Apixaban 5 mg 08/21/18 10:00 08/24/18 09:56 Eliquis - PO 5 mg BID [facility] Administration Aspirin 81 mg 08/21/18 10:00 08/24/18 09:56 Ecotrin - PO 81 mg DAILY [facility] Administration Atorvastatin Calcium 40 mg 08/21/18 22:00 08/23/18 21:37 Lipitor - PO 40 mg HS [facility] Administration Clopidogrel Bisulfate 75 mg 08/21/18 10:00 08/24/18 09:56 Plavix - PO 75 mg DAILY [facility] Administration Diltiazem HCl 360 mg 08/21/18 10:00 08/24/18 10:08 Cardizem Cd - PO 360 mg DAILY [facility] Administration Piperacillin Sod/Tazobactam 50 mls @ 100 mls/hr 08/21/18 14:30 08/24/18 09:55 Sod 3.375 gm/ Dextrose IVPB 100 mls/hr Q8H-IV [facility] Administration Protocol Insulin Aspart 1 vial 08/21/18 07:00 08/24/18 06:24 Novolog Vial Sliding Scale - SQ 2 units ACHS [facility] Administration Protocol Metoprolol Succinate 50 mg 08/21/18 10:00 08/24/18 09:56 Toprol Xl - PO 50 mg DAILY [facility] Administration Nystatin 1 applic 08/21/18 15:45 08/24/18 06:23 Nystop Powder - TP 1 applic TID [facility] Administration Ondansetron HCl 4 mg 08/22/18 15:26 Zofran Injection IVPUSH Q6H PRN NAUSEA ASSESSMENT/PLAN: 73 y/o F with PMH thoracic aortic aneurysm s/p repair, cerebral aneurysm s/p clipping, DM, TAVR, HTN, HLD, diastolic CHF, afib, previous MIs/CAD s/p stents done at [facility] on 03/26 who presents to the ED c/o chest tightness x 1 day. Chest tightness with sob and dry cough resolved r/o chf exacerbation vs copd exacerbation obesity hypoventilation syndrome Panniculituis of abdomen UTI DM AF CAD s/p stents HLD morbid obesity -euvolemic, ct chest negative for pna; cardio consult appreciated -Urine ecoli + sensitivity appreciated -Id consult apprecited, continue zosyn and nystatin powder -continue home toprol, cardizem -uncertain why patient still on dual antiplateles since stent was > 1 yr ago -continue noac, lipitor Problem List - Problems (1) CHF exacerbation Code(s): I50.9 - HEART FAILURE, UNSPECIFIED Qualifiers: Heart failure type: unspecified Qualified Code(s): I50.9 - Heart failure, unspecified (2) COPD exacerbation Code(s): J44.1 - CHRONIC OBSTRUCTIVE PULMONARY DISEASE W (ACUTE) EXACERBATION (3) Panniculitis Code(s): M79.3 - PANNICULITIS, UNSPECIFIED (4) Atypical chest pain Code(s): R07.89 - OTHER CHEST PAIN (5) UTI (urinary tract infection) Code(s): N39.0 - URINARY TRACT INFECTION, SITE NOT SPECIFIED Qualifiers: Urinary tract infection type: acute cystitis Hematuria presence: without hematuria Qualified Code(s): N30.00 - Acute cystitis without hematuria (6) Diabetes Code(s): E11.9 - TYPE 2 DIABETES MELLITUS WITHOUT COMPLICATIONS Qualifiers: (7) HTN (hypertension), benign Code(s): I10 - ESSENTIAL (PRIMARY) HYPERTENSION (8) Hyperlipidemia Code(s): E78.5 - HYPERLIPIDEMIA, UNSPECIFIED Visit type - Emergency Visit Emergency Visit: Yes ED Registration Date: 08/20/18 Care time: The patient presented to the Emergency Department on the above date and was hospitalized for further evaluation of their emergent condition. - New Patient This patient is new to me today: Yes Date on this admission: 08/24/18 - Critical Care Critical Care patient: No - Discharge Referral Referred to [facility] Med P.C.: No
--- NOTE | 2018-08-24 11:01 | PN ---
Teaching Attending Note Name of Resident: Ana Maria John ATTENDING PHYSICIAN STATEMENT I saw and evaluated the patient. I reviewed the resident's note and discussed the case with the resident. I agree with the resident's findings and plan as documented. SUBJECTIVE: Ms Kan says she feels better. Denies cp, sob, n/v. Says redness is improving. OBJECTIVE: Last Vital Signs Temp Pulse Resp BP Pulse Ox 36.6 C 62 18 129/59 L 93 L 08/24/18 10:00 08/24/18 10:00 08/24/18 10:00 08/24/18 10:00 08/24/18 09:00 Gen: nad, obese Pulm: ctab w/o w/r/r CV: rrr w/o m/r/g Abd: +bs, s/nt/nd Skin: improving erythema Ext: no c/c/e CBC, BMP 08/24/18 06:03 08/24/18 06:03 ASSESSMENT AND PLAN: (1) Panniculitis Assessment/Plan: -continues to improve -continue zosyn and nystatin powder -will d/w Dr Chahal when can change to oral antibiotics Code(s): M79.3 - PANNICULITIS, UNSPECIFIED (2) UTI (urinary tract infection) Assessment/Plan: -growing e coli -resistant to ampicillin and unasyn Code(s): N39.0 - URINARY TRACT INFECTION, SITE NOT SPECIFIED Qualifiers: Urinary tract infection type: acute cystitis Hematuria presence: without hematuria Qualified Code(s): N30.00 - Acute cystitis without hematuria (3) Pneumonia Assessment/Plan: -negative on CT scan Code(s): J18.9 - PNEUMONIA, UNSPECIFIED ORGANISM Qualifiers: Pneumonia type: due to unspecified organism Laterality: right Lung location: middle lobe of lung Qualified Code(s): J18.1 - Lobar pneumonia, unspecified organism (4) Chest pain Assessment/Plan: -resolved -atypical Code(s): R07.9 - CHEST PAIN, UNSPECIFIED (5) Coronary artery disease Assessment/Plan: -continue home regimen Code(s): I25.10 - ATHSCL HEART DISEASE OF [place] CORONARY ARTERY W/O ANG PCTRS (6) Morbid obesity Assessment/Plan: -will need outpatient weight loss program Code(s): E66.01 - MORBID (SEVERE) OBESITY DUE TO EXCESS CALORIES (7) Diabetes Assessment/Plan: -diabetic diet -FSBS and SSI Code(s): E11.9 - TYPE 2 DIABETES MELLITUS WITHOUT COMPLICATIONS Qualifiers: (8) HTN (hypertension), benign Assessment/Plan: -continue current regimen Code(s): I10 - ESSENTIAL (PRIMARY) HYPERTENSION (9) Hyperlipidemia Assessment/Plan: continue statin Code(s): E78.5 - HYPERLIPIDEMIA, UNSPECIFIED (10) CHF exacerbation Assessment/Plan: -not fluid overloaded -continue to hold lasix -renal function improving Code(s): I50.9 - HEART FAILURE, UNSPECIFIED Qualifiers: Heart failure type: unspecified Qualified Code(s): I50.9 - Heart failure, unspecified Problem List - Problems (1) Panniculitis Code(s): M79.3 - PANNICULITIS, UNSPECIFIED (2) UTI (urinary tract infection) Code(s): N39.0 - URINARY TRACT INFECTION, SITE NOT SPECIFIED Qualifiers: Urinary tract infection type: acute cystitis Hematuria presence: without hematuria Qualified Code(s): N30.00 - Acute cystitis without hematuria (3) Pneumonia Code(s): J18.9 - PNEUMONIA, UNSPECIFIED ORGANISM Qualifiers: Pneumonia type: due to unspecified organism Laterality: right Lung location: middle lobe of lung Qualified Code(s): J18.1 - Lobar pneumonia, unspecified organism (4) Chest pain Code(s): R07.9 - CHEST PAIN, UNSPECIFIED (5) Coronary artery disease Code(s): I25.10 - ATHSCL HEART DISEASE OF [place] CORONARY ARTERY W/O ANG PCTRS (6) Morbid obesity Code(s): E66.01 - MORBID (SEVERE) OBESITY DUE TO EXCESS CALORIES (7) Diabetes Code(s): E11.9 - TYPE 2 DIABETES MELLITUS WITHOUT COMPLICATIONS Qualifiers: (8) HTN (hypertension), benign Code(s): I10 - ESSENTIAL (PRIMARY) HYPERTENSION (9) Hyperlipidemia Code(s): E78.5 - HYPERLIPIDEMIA, UNSPECIFIED (10) CHF exacerbation Code(s): I50.9 - HEART FAILURE, UNSPECIFIED Qualifiers: Heart failure type: unspecified Qualified Code(s): I50.9 - Heart failure, unspecified
[2018-08-24 11:48] LABS: ANISOCYTOSIS 0; MACROCYTOSIS 0; PLATELET ESTIMATE NORMAL
--- NOTE | 2018-08-24 12:29 | PN ---
Progress Note, Physician Chief Complaint: Pt A&Ox3;feels better today--able to ambulate slowly with walker, assistance of therapist; dyspnea on even mild exertion. History of Present Illness: The patient is a 73 year old white female, with a significant PMH of morbid obesity COPD,diastolic CHF, CAD s/p stent, DM, HTN, and Afib who presents to the emergency department with a progressively worsening cough for the past week , and SOB for the past 3 hours. The patient denies chest pain,, headache and dizziness. Denies nausea, vomiting, diarrhea and constipation. Denies dysuria, frequency, urgency and hematuria. Allergies: NKA - Current Medication List Current Medications: Active Medications Acetaminophen (Tylenol -) 650 mg PO Q4H PRN PRN Reason: FEVER Last Admin: 08/22/18 20:28 Dose: 650 mg Apixaban (Eliquis -) 5 mg PO BID [facility] Last Admin: 08/24/18 09:56 Dose: 5 mg Aspirin (Ecotrin -) 81 mg PO DAILY [facility] Last Admin: 08/24/18 09:56 Dose: 81 mg Atorvastatin Calcium (Lipitor -) 40 mg PO HS [facility] Last Admin: 08/23/18 21:37 Dose: 40 mg Clopidogrel Bisulfate (Plavix -) 75 mg PO DAILY [facility] Last Admin: 08/24/18 09:56 Dose: 75 mg Diltiazem HCl (Cardizem Cd -) 360 mg PO DAILY [facility] Last Admin: 08/24/18 10:08 Dose: 360 mg Piperacillin Sod/Tazobactam (Sod 3.375 gm/ Dextrose) 50 mls @ 100 mls/hr IVPB Q8H-IV [facility]; Protocol Last Admin: 08/24/18 09:55 Dose: 100 mls/hr Insulin Aspart (Novolog Vial Sliding Scale -) 1 vial SQ ACHS [facility]; Protocol Last Admin: 08/24/18 06:24 Dose: 2 units Metoprolol Succinate (Toprol Xl -) 50 mg PO DAILY [facility] Last Admin: 08/24/18 09:56 Dose: 50 mg Nystatin (Nystop Powder -) 1 applic TP TID [facility] Last Admin: 08/24/18 06:23 Dose: 1 applic Ondansetron HCl (Zofran Injection) 4 mg IVPUSH Q6H PRN PRN Reason: NAUSEA - Objective Vital Signs: Vital Signs Temperature 97.9 F 08/24/18 10:00 Pulse Rate 62 08/24/18 10:00 Respiratory Rate 18 08/24/18 10:00 Blood Pressure 129/59 L 08/24/18 10:00 O2 Sat by Pulse Oximetry (%) 93 L 08/24/18 09:00 Constitutional: Yes: Calm, Obese Eyes: Yes: WNL HENT: Yes: WNL, Thrush Labs: CBC, BMP 08/24/18 06:03 08/24/18 06:03 Problem List - Problems (1) COPD exacerbation Assessment/Plan: Bronlchodilators, steroids, and O2 per cargo trimmer. Code(s): J44.1 - CHRONIC OBSTRUCTIVE PULMONARY DISEASE W (ACUTE) EXACERBATION (2) HTN (hypertension), benign Code(s): I10 - ESSENTIAL (PRIMARY) HYPERTENSION (3) Hyperlipidemia Assessment/Plan: statin; f/u lipid levels. Keep LDL < 70 mg/dl (well-controlled 03/2018, but pt' s compliance to medications and diet is unclear). Code(s): E78.5 - HYPERLIPIDEMIA, UNSPECIFIED (4) Obesity Assessment/Plan: dietary consult; however, compliance is poor. Code(s): E66.9 - OBESITY, UNSPECIFIED (5) SVT (supraventricular tachycardia) Code(s): I47.1 - SUPRAVENTRICULAR TACHYCARDIA (6) Sleep apnea Code(s): G47.30 - SLEEP APNEA, UNSPECIFIED (7) History of heart artery stent Code(s): Z95.5 - PRESENCE OF CORONARY ANGIOPLASTY IMPLANT AND GRAFT (8) Paroxysmal atrial fibrillation Code(s): I48.0 - PAROXYSMAL ATRIAL FIBRILLATION
--- NOTE | 2018-08-24 15:50 | PN ---
Progress Note, Physician History of Present Illness: improving erythema patient doing well - Current Medication List Current Medications: Active Medications Acetaminophen (Tylenol -) 650 mg PO Q4H PRN PRN Reason: FEVER Last Admin: 08/22/18 20:28 Dose: 650 mg Apixaban (Eliquis -) 5 mg PO BID [facility] Last Admin: 08/24/18 09:56 Dose: 5 mg Aspirin (Ecotrin -) 81 mg PO DAILY [facility] Last Admin: 08/24/18 09:56 Dose: 81 mg Atorvastatin Calcium (Lipitor -) 40 mg PO HS [facility] Last Admin: 08/23/18 21:37 Dose: 40 mg Clopidogrel Bisulfate (Plavix -) 75 mg PO DAILY [facility] Last Admin: 08/24/18 09:56 Dose: 75 mg Diltiazem HCl (Cardizem Cd -) 360 mg PO DAILY [facility] Last Admin: 08/24/18 10:08 Dose: 360 mg Piperacillin Sod/Tazobactam (Sod 3.375 gm/ Dextrose) 50 mls @ 100 mls/hr IVPB Q8H-IV [facility]; Protocol Last Admin: 08/24/18 09:55 Dose: 100 mls/hr Insulin Aspart (Novolog Vial Sliding Scale -) 1 vial SQ ACHS [facility]; Protocol Last Admin: 08/24/18 14:15 Dose: Not Given Metoprolol Succinate (Toprol Xl -) 50 mg PO DAILY [facility] Last Admin: 08/24/18 09:56 Dose: 50 mg Nystatin (Nystop Powder -) 1 applic TP TID [facility] Last Admin: 08/24/18 14:14 Dose: 1 applic Ondansetron HCl (Zofran Injection) 4 mg IVPUSH Q6H PRN PRN Reason: NAUSEA - Objective Vital Signs: Vital Signs Temperature 98 F 08/24/18 15:00 Pulse Rate 58 L 08/24/18 15:00 Respiratory Rate 16 08/24/18 15:00 Blood Pressure 130/77 08/24/18 15:00 O2 Sat by Pulse Oximetry (%) 93 L 08/24/18 09:00 Constitutional: Yes: No Distress, Calm Cardiovascular: Yes: S1, S2 Respiratory: Yes: Regular, CTA Bilaterally Gastrointestinal: Yes: Normal Bowel Sounds, Soft Musculoskeletal: Yes: WNL Extremities: Yes: WNL Integumentary: Yes: Erythema (improving), Rash Neurological: Yes: Alert, Oriented Psychiatric: Yes: Alert, Oriented Labs: CBC, BMP 08/24/18 06:03 08/24/18 06:03 Assessment/Plan Problem List - Problems (1) Panniculitis Code(s): M79.3 - PANNICULITIS, UNSPECIFIED (2) UTI (urinary tract infection) Code(s): N39.0 - URINARY TRACT INFECTION, SITE NOT SPECIFIED Qualifiers: Urinary tract infection type: acute cystitis Hematuria presence: without hematuria Qualified Code(s): N30.00 - Acute cystitis without hematuria (3) Pneumonia Code(s): J18.9 - PNEUMONIA, UNSPECIFIED ORGANISM Qualifiers: Pneumonia type: due to unspecified organism Laterality: right Lung location: middle lobe of lung Qualified Code(s): J18.1 - Lobar pneumonia, unspecified organism (4) Chest pain Code(s): R07.9 - CHEST PAIN, UNSPECIFIED (5) Coronary artery disease Code(s): I25.10 - ATHSCL HEART DISEASE OF [place] CORONARY ARTERY W/O ANG PCTRS (6) Morbid obesity Code(s): E66.01 - MORBID (SEVERE) OBESITY DUE TO EXCESS CALORIES (7) Diabetes Code(s): E11.9 - TYPE 2 DIABETES MELLITUS WITHOUT COMPLICATIONS Qualifiers: (8) HTN (hypertension), benign Code(s): I10 - ESSENTIAL (PRIMARY) HYPERTENSION (9) Hyperlipidemia Code(s): E78.5 - HYPERLIPIDEMIA, UNSPECIFIED (10) CHF exacerbation Code(s): I50.9 - HEART FAILURE, UNSPECIFIED Qualifiers: Heart failure type: unspecified Qualified Code(s): I50.9 - Heart failure, unspecified plan continue abx bacteria noted cellulitis better rest as per the team monitor rash urine cx result noted
[2018-08-24] MEDS ORDERED: INSULIN (NOVOLOG) ASPART 100 UNITS/ML 10ML VIAL ONE (21:05)
[2018-08-24] MEDS: ATORVASTATIN CA 40 MG TABLET (FP) PO SCH (21:09)
[2018-08-25] MEDS ORDERED: PIPERACILLIN/TAZOBACTAM 3.375 GM VIAL IVPB ONE ×3 (00:14→17:03)
[2018-08-25] MEDS ORDERED: DEXTROSE 5%-WATER - 50 ML IVPB ONE ×3 (00:15→17:03)
[2018-08-25] MEDS: PIPERACILLIN/TAZOB 3.375 GM 3.375 GM in DEXTROSE 5%-WATER - 50 ML IVPB SCH ×3 (01:01→17:10)
[2018-08-25] MEDS: NYSTATIN POWDER 100,000 UNITS/GM - 15 GM TOPICAL POWDER TP SCH ×3 (06:19→23:02)
[2018-08-25] MEDS: INSULIN SLIDING SCALE (NOVOLOG) 1 VIAL SQ SCH ×4 (06:20→22:06)
[2018-08-25 07:15] LABS: BASO % 0.8 % (0-2.0); HEMATOCRIT 38.8 % (32.4-45.2); HEMOGLOBIN 13.4 GM/dL (10.7-15.3); MCHC 34.6 g/dl (32.0-36.0); MEAN CELL VOLUME 86.6 fl (80-96); MEAN PLT VOLUME 8.6 fl (7.5-11.1); MONO % 11.9 % (3.8-10.2); NEUT % 61.3 % (42.8-82.8); PLATELET COUNT 236 K/MM3 (134-434); RBC 4.48 M/mm3 (3.60-5.2); RDW 14.8 % (11.6-15.6); WHITE BLOOD COUNT 5.7 K/mm3 (4.0-10.0)
[2018-08-25 07:43] LABS: BLOOD UREA NITROGEN 23.5 mg/dL (7-18); CALCIUM 8.6 mg/dL (8.5-10.1); POTASSIUM 3.5 mmol/L (3.5-5.1)
[2018-08-25] MEDS: CLOPIDOGREL BISULFATE 75 MG TABLET (FP) PO SCH (10:19)
[2018-08-25] MEDS: APIXABAN 5 MG TABLET PO SCH ×2 (10:20→22:06)
[2018-08-25] MEDS: ASPIRIN COATED 81 MG TABLET.EC PO SCH (10:20)
[2018-08-25] MEDS ORDERED: INSULIN (NOVOLOG) ASPART 100 UNITS/ML 10ML VIAL ONE (11:27)
--- NOTE | 2018-08-25 12:18 | PN ---
Progress Note, Physician History of Present Illness: 73YOF with h/o CAD s/p stent (x1 2008), COPD, CHF, thoracic aortic aneurysm s/p repair, cerebral aneurysm s/p clipping, DM, HTN, Afib (on eliquis), and morbid obesity. She presents with cough/sore throat worsening for the past week with 2- 3 hours of increased SOB and wheezing. The patient states she has been taking all her medications as she is supposed to, including her diuretics. She does not have any breathing treatments left at home. She has had much worse BARBOZA than normal lately, denies any new leg swelling or calf pain, a little bit of right hip/thigh pain. States she does not monitor her weight closely at home. Has chills but denies measured fever, n/v/d/c, chest pain, back pain, abdominal pain , or other symptoms. Past History Ongoing medical problems ASHD promus stent pLAD 2008 PCI RCA 05/27/17 Atrial fibrillation 2016 CHF diastolic DM GERD HHD HTN Hyperlipidemia Morbid obesity Negative MIBI ST September 2011, March 2015 - Current Medication List Current Medications: Active Medications Acetaminophen (Tylenol -) 650 mg PO Q4H PRN PRN Reason: FEVER Last Admin: 08/22/18 20:28 Dose: 650 mg Apixaban (Eliquis -) 5 mg PO BID [facility] Last Admin: 08/25/18 10:20 Dose: 5 mg Aspirin (Ecotrin -) 81 mg PO DAILY [facility] Last Admin: 08/25/18 10:20 Dose: 81 mg Atorvastatin Calcium (Lipitor -) 40 mg PO HS [facility] Last Admin: 08/24/18 21:09 Dose: 40 mg Clopidogrel Bisulfate (Plavix -) 75 mg PO DAILY [facility] Last Admin: 08/25/18 10:19 Dose: 75 mg Diltiazem HCl (Cardizem Cd -) 360 mg PO DAILY [facility] Last Admin: 08/25/18 10:19 Dose: 360 mg Piperacillin Sod/Tazobactam (Sod 3.375 gm/ Dextrose) 50 mls @ 100 mls/hr IVPB Q8H-IV [facility]; Protocol Last Admin: 08/25/18 10:20 Dose: 100 mls/hr Insulin Aspart (Novolog Vial Sliding Scale -) 1 vial SQ ACHS [facility]; Protocol Last Admin: 06/19/19 12:05 Dose: 4 units Metoprolol Succinate (Toprol Xl -) 50 mg PO DAILY [facility] Last Admin: 08/25/18 10:19 Dose: 50 mg Nystatin (Nystop Powder -) 1 applic TP TID [facility] Last Admin: 08/25/18 06:19 Dose: 1 applic Ondansetron HCl (Zofran Injection) 4 mg IVPUSH Q6H PRN PRN Reason: NAUSEA - Objective Vital Signs: Vital Signs Temperature 98.4 F 08/25/18 09:00 Pulse Rate 62 08/25/18 09:00 Respiratory Rate 18 08/25/18 09:00 Blood Pressure 118/87 08/25/18 09:00 O2 Sat by Pulse Oximetry (%) 96 08/25/18 09:00 Eyes: Yes: WNL, Conjunctiva Clear, EOM Intact HENT: Yes: WNL, Atraumatic, Normocephalic Neck: Yes: WNL, Supple, Trachea Midline Cardiovascular: Yes: WNL, Regular Rate and Rhythm Respiratory: Yes: WNL, Regular, CTA Bilaterally Gastrointestinal: Yes: WNL, Normal Bowel Sounds Genitourinary: Yes: WNL Musculoskeletal: Yes: WNL Extremities: Yes: WNL Edema: No Integumentary: Yes: WNL Neurological: Yes: WNL, Alert, Oriented ...Motor Strength: WNL Psychiatric: Yes: WNL Labs: CBC, BMP 08/25/18 05:20 08/25/18 05:20 Assessment/Plan - Problems (1) COPD exacerbation Assessment/Plan: Bronlchodilators, steroids, and O2 per plastics engineering teacher. Code(s): J44.1 - CHRONIC OBSTRUCTIVE PULMONARY DISEASE W (ACUTE) EXACERBATION (2) HTN (hypertension), benign Code(s): I10 - ESSENTIAL (PRIMARY) HYPERTENSION (3) Hyperlipidemia Assessment/Plan: statin; f/u lipid levels. Keep LDL < 70 mg/dl (well-controlled 03/2018, but pt' s compliance to medications and diet is unclear). Code(s): E78.5 - HYPERLIPIDEMIA, UNSPECIFIED (4) Obesity Assessment/Plan: dietary consult; however, compliance is poor. Code(s): E66.9 - OBESITY, UNSPECIFIED (5) SVT (supraventricular tachycardia) Code(s): I47.1 - SUPRAVENTRICULAR TACHYCARDIA (6) Sleep apnea Code(s): G47.30 - SLEEP APNEA, UNSPECIFIED (7) History of heart artery stent Code(s): Z95.5 - PRESENCE OF CORONARY ANGIOPLASTY IMPLANT AND GRAFT (8) Paroxysmal atrial fibrillation Code(s): I48.0 - PAROXYSMAL ATRIAL FIBRILLATION
--- NOTE | 2018-08-25 12:58 | PN ---
Physical Exam: SUBJECTIVE: Patient seen and examined resting in chair nad. afebrile hemodynamically stable. no acute events. feels at baseline, denies chest discomfort, sob, cough. no more diarrhea OBJECTIVE: Vital Signs Period Temp Pulse Resp BP Sys/Bowen Pulse Ox Last 24 Hr 97.8 F-99.1 F 53-62 16-18 118-144/60-87 95-96 GENERAL: The patient is awake, alert, and fully oriented, in no acute distress. HEAD: Normal with no signs of trauma. EYES: PERRL, extraocular movements intact, sclera anicteric, conjunctiva clear. No ptosis. ENT: moist mucous membranes. NECK: supple. LUNGS: Breath sounds equal, clear to auscultation bilaterally HEART: Regular rate and rhythm, S1, S2 mild systolic murmur ABDOMEN: obese, Soft, nontender, nondistended, normoactive bowel sounds, EXTREMITIES: warm, well-perfused, no edema. NEUROLOGICAL: Cranial nerves II through XII grossly intact. Normal speech, gait not observed. PSYCH: Normal mood, normal affect. SKIN: Warm, dry erythema in abdominal folds d Laboratory Results - last 24 hr 08/24/18 08/24/18 08/24/18 06:03 16:43 21:01 WBC RBC Hgb Hct MCV MCH MCHC RDW Plt Count MPV Absolute Neuts (auto) Neutrophils % Lymphocytes % Monocytes % Eosinophils % Basophils % Nucleated RBC % Sodium 136 Potassium 3.5 Chloride 97 L Carbon Dioxide 29 Anion Gap 10 BUN 26.7 H Creatinine 1.2 Est GFR (CKD-EPI)AfAm 51.56 Est GFR (CKD-EPI)NonAf 44.48 POC Glucometer 228 224 Random Glucose 189 H Calcium 8.9 Phosphorus 3.6 Magnesium 2.5 H Triglycerides 168 H Cholesterol 141 Total LDL Cholesterol 98 HDL Cholesterol 25 L 08/25/18 08/25/18 08/25/18 05:20 05:20 05:48 WBC 5.7 RBC 4.48 Hgb 13.4 Hct 38.8 MCV 86.6 MCH 30.0 MCHC 34.6 RDW 14.8 Plt Count 236 MPV 8.6 Absolute Neuts (auto) 3.5 Neutrophils % 61.3 Lymphocytes % 22.0 Monocytes % 11.9 H Eosinophils % 4.0 Basophils % 0.8 Nucleated RBC % 0 Sodium 139 Potassium 3.5 Chloride 102 Carbon Dioxide 30 Anion Gap 8 BUN 23.5 H Creatinine 1.0 Est GFR (CKD-EPI)AfAm 64.27 Est GFR (CKD-EPI)NonAf 55.45 POC Glucometer 182 Random Glucose 182 H Calcium 8.6 Phosphorus Magnesium Triglycerides Cholesterol Total LDL Cholesterol HDL Cholesterol 08/25/18 08/25/18 09:56 12:01 WBC RBC Hgb Hct MCV MCH MCHC RDW Plt Count MPV Absolute Neuts (auto) Neutrophils % Lymphocytes % Monocytes % Eosinophils % Basophils % Nucleated RBC % Sodium Potassium Chloride Carbon Dioxide Anion Gap BUN Creatinine Est GFR (CKD-EPI)AfAm Est GFR (CKD-EPI)NonAf POC Glucometer 264 205 Random Glucose Calcium Phosphorus Magnesium Triglycerides Cholesterol Total LDL Cholesterol HDL Cholesterol Active Medications Generic Name Dose Route Start Last Admin Trade Name Freq PRN Reason Stop Dose Admin Acetaminophen 650 mg 08/22/18 15:26 08/22/18 20:28 Tylenol - PO 650 mg Q4H PRN Administration FEVER Apixaban 5 mg 08/21/18 10:00 08/25/18 10:20 Eliquis - PO 5 mg BID BRCUE Administration Aspirin 81 mg 08/21/18 10:00 08/25/18 10:20 Ecotrin - PO 81 mg DAILY BRUCE Administration Atorvastatin Calcium 40 mg 08/21/18 22:00 08/24/18 21:09 Lipitor - PO 40 mg HS BRUCE Administration Clopidogrel Bisulfate 75 mg 08/21/18 10:00 08/25/18 10:19 Plavix - PO 75 mg DAILY BRUCE Administration Diltiazem HCl 360 mg 08/21/18 10:00 08/25/18 10:19 Cardizem Cd - PO 360 mg DAILY BRUCE Administration Piperacillin Sod/Tazobactam 50 mls @ 100 mls/hr 08/21/18 14:30 08/25/18 10:20 Sod 3.375 gm/ Dextrose IVPB 100 mls/hr Q8H-IV BRUCE Administration Protocol Insulin Aspart 1 vial 08/21/18 07:00 08/25/18 12:05 Novolog Vial Sliding Scale - SQ 4 units ACHS BRUCE Administration Protocol Metoprolol Succinate 50 mg 08/21/18 10:00 08/25/18 10:19 Toprol Xl - PO 50 mg DAILY BRUCE Administration Nystatin 1 applic 08/21/18 15:45 08/25/18 06:19 Nystop Powder - TP 1 applic TID BRUCE Administration Ondansetron HCl 4 mg 08/22/18 15:26 Zofran Injection IVPUSH Q6H PRN NAUSEA ASSESSMENT/PLAN: 73 y/o F with PMH thoracic aortic aneurysm s/p repair, cerebral aneurysm s/p clipping, DM, TAVR, HTN, HLD, diastolic CHF, afib, previous MIs/CAD s/p stents done at [facility] on 03/26 who presents to the ED c/o chest tightness x 1 day. Chest tightness with sob and dry cough resolved r/o chf exacerbation vs copd exacerbation obesity hypoventilation syndrome Panniculituis of abdomen UTI DM AF CAD s/p stents HLD morbid obesity -euvolemic, ct chest negative for pna; cardio consult appreciated -Urine ecoli + sensitivity appreciated -Id consult apprecited, continue zosyn and nystatin powder, can switch to PO abx tomorrow -continue home toprol, cardizem -uncertain why patient still on dual antiplateles since stent was > 1 yr ago -continue noac, lipitor Problem List - Problems (1) CHF exacerbation Code(s): I50.9 - HEART FAILURE, UNSPECIFIED Qualifiers: Heart failure type: unspecified Qualified Code(s): I50.9 - Heart failure, unspecified (2) COPD exacerbation Code(s): J44.1 - CHRONIC OBSTRUCTIVE PULMONARY DISEASE W (ACUTE) EXACERBATION (3) Panniculitis Code(s): M79.3 - PANNICULITIS, UNSPECIFIED (4) Atypical chest pain Code(s): R07.89 - OTHER CHEST PAIN (5) UTI (urinary tract infection) Code(s): N39.0 - URINARY TRACT INFECTION, SITE NOT SPECIFIED Qualifiers: Urinary tract infection type: acute cystitis Hematuria presence: without hematuria Qualified Code(s): N30.00 - Acute cystitis without hematuria (6) Diabetes Code(s): E11.9 - TYPE 2 DIABETES MELLITUS WITHOUT COMPLICATIONS Qualifiers: (7) HTN (hypertension), benign Code(s): I10 - ESSENTIAL (PRIMARY) HYPERTENSION (8) Hyperlipidemia Code(s): E78.5 - HYPERLIPIDEMIA, UNSPECIFIED Visit type - Emergency Visit Emergency Visit: Yes ED Registration Date: 08/20/18 Care time: The patient presented to the Emergency Department on the above date and was hospitalized for further evaluation of their emergent condition. - New Patient This patient is new to me today: No - Critical Care Critical Care patient: No - Discharge Referral Referred to [facility] Med [facility] No
--- NOTE | 2018-08-25 13:08 | PN ---
Teaching Attending Note Name of Resident: Ana Maria John ATTENDING PHYSICIAN STATEMENT I saw and evaluated the patient. I reviewed the resident's note and discussed the case with the resident. I agree with the resident's findings and plan as documented. SUBJECTIVE: Ms Kan is without complaint. No cp, sob, n/v. OBJECTIVE: Last Vital Signs Temp Pulse Resp BP Pulse Ox 36.9 C 62 18 118/87 96 08/25/18 09:00 08/25/18 09:00 08/25/18 09:00 08/25/18 09:00 08/25/18 09:00 Gen: nad, obese Pulm: ctab w/o w/r/r CV: rrr w/o m/r/g Abd: +bs, s/nt/nd, improved erythema Ext: no c/c/e CBC, BMP 08/25/18 05:20 08/25/18 05:20 ASSESSMENT AND PLAN: (1) Panniculitis Assessment/Plan: -continues to improve -continue zosyn and nystatin powder -case d/w Dr Chahal, says can change to oral antibiotics on Thursday Code(s): M79.3 - PANNICULITIS, UNSPECIFIED (2) UTI (urinary tract infection) Assessment/Plan: -growing e coli -resistant to ampicillin and unasyn Code(s): N39.0 - URINARY TRACT INFECTION, SITE NOT SPECIFIED Qualifiers: Urinary tract infection type: acute cystitis Hematuria presence: without hematuria Qualified Code(s): N30.00 - Acute cystitis without hematuria (3) Pneumonia Assessment/Plan: -negative on CT scan Code(s): J18.9 - PNEUMONIA, UNSPECIFIED ORGANISM Qualifiers: Pneumonia type: due to unspecified organism Laterality: right Lung location: middle lobe of lung Qualified Code(s): J18.1 - Lobar pneumonia, unspecified organism (4) Chest pain Assessment/Plan: -resolved -atypical Code(s): R07.9 - CHEST PAIN, UNSPECIFIED (5) Coronary artery disease Assessment/Plan: -continue home regimen Code(s): I25.10 - ATHSCL HEART DISEASE OF [place] CORONARY ARTERY W/O ANG PCTRS (6) Morbid obesity Assessment/Plan: -will need outpatient weight loss program Code(s): E66.01 - MORBID (SEVERE) OBESITY DUE TO EXCESS CALORIES (7) Diabetes Assessment/Plan: -diabetic diet -FSBS and SSI Code(s): E11.9 - TYPE 2 DIABETES MELLITUS WITHOUT COMPLICATIONS Qualifiers: (8) HTN (hypertension), benign Assessment/Plan: -continue current regimen Code(s): I10 - ESSENTIAL (PRIMARY) HYPERTENSION (9) Hyperlipidemia Assessment/Plan: continue statin Code(s): E78.5 - HYPERLIPIDEMIA, UNSPECIFIED (10) CHF exacerbation Assessment/Plan: -not in exacerbation -renal function normalized -can restart lasix 40mg po daily tomorrow Code(s): I50.9 - HEART FAILURE, UNSPECIFIED Qualifiers: Heart failure type: unspecified Qualified Code(s): I50.9 - Heart failure, unspecified Problem List - Problems (1) Panniculitis Code(s): M79.3 - PANNICULITIS, UNSPECIFIED (2) UTI (urinary tract infection) Code(s): N39.0 - URINARY TRACT INFECTION, SITE NOT SPECIFIED Qualifiers: Urinary tract infection type: acute cystitis Hematuria presence: without hematuria Qualified Code(s): N30.00 - Acute cystitis without hematuria (3) Pneumonia Code(s): J18.9 - PNEUMONIA, UNSPECIFIED ORGANISM Qualifiers: Pneumonia type: due to unspecified organism Laterality: right Lung location: middle lobe of lung Qualified Code(s): J18.1 - Lobar pneumonia, unspecified organism (4) Chest pain Code(s): R07.9 - CHEST PAIN, UNSPECIFIED (5) Coronary artery disease Code(s): I25.10 - ATHSCL HEART DISEASE OF [place] CORONARY ARTERY W/O ANG PCTRS (6) Morbid obesity Code(s): E66.01 - MORBID (SEVERE) OBESITY DUE TO EXCESS CALORIES (7) Diabetes Code(s): E11.9 - TYPE 2 DIABETES MELLITUS WITHOUT COMPLICATIONS Qualifiers: (8) HTN (hypertension), benign Code(s): I10 - ESSENTIAL (PRIMARY) HYPERTENSION (9) Hyperlipidemia Code(s): E78.5 - HYPERLIPIDEMIA, UNSPECIFIED (10) CHF exacerbation Code(s): I50.9 - HEART FAILURE, UNSPECIFIED Qualifiers: Heart failure type: unspecified Qualified Code(s): I50.9 - Heart failure, unspecified
[2018-08-25] MEDS ORDERED: ONDANSETRON 4 MG/2 ML VIAL IVPUSH PRN (20:06)
[2018-08-25] MEDS ORDERED: ACETAMINOPHEN 325 MG TABLET (FP) PO PRN (20:06)
[2018-08-25] MEDS: ATORVASTATIN CA 40 MG TABLET (FP) PO SCH (22:06)
[2018-08-26] MEDS ORDERED: PIPERACILLIN/TAZOBACTAM 3.375 GM VIAL IVPB ONE ×2 (01:40→10:18)
[2018-08-26] MEDS ORDERED: DEXTROSE 5%-WATER - 50 ML IVPB ONE ×2 (01:40→10:18)
[2018-08-26] MEDS: PIPERACILLIN/TAZOB 3.375 GM 3.375 GM in DEXTROSE 5%-WATER - 50 ML IVPB SCH ×2 (02:30→10:30)
[2018-08-26] MEDS: INSULIN SLIDING SCALE (NOVOLOG) 1 VIAL SQ SCH ×4 (06:31→21:09)
[2018-08-26] MEDS: NYSTATIN POWDER 100,000 UNITS/GM - 15 GM TOPICAL POWDER TP SCH ×3 (06:32→21:10)
[2018-08-26 07:59] LABS: EOS % 4.3 % (0-4.5); HEMATOCRIT 41.4 % (32.4-45.2); HEMOGLOBIN 14.1 GM/dL (10.7-15.3); LYMPH % 22.7 % (8-40); MCH 29.6 pg (25.7-33.7); MEAN CELL VOLUME 87.2 fl (80-96); MEAN PLT VOLUME 8.5 fl (7.5-11.1); MONO % 8.8 % (3.8-10.2); NEUT % 63.2 % (42.8-82.8); PLATELET COUNT 269 K/MM3 (134-434); RBC 4.74 M/mm3 (3.60-5.2); RDW 14.8 % (11.6-15.6); WHITE BLOOD COUNT 6.4 K/mm3 (4.0-10.0)
[2018-08-26] MEDS: CLOPIDOGREL BISULFATE 75 MG TABLET (FP) PO SCH (10:29)
[2018-08-26] MEDS: ASPIRIN COATED 81 MG TABLET.EC PO SCH (10:30)
[2018-08-26] MEDS: APIXABAN 5 MG TABLET PO SCH ×2 (10:30→21:09)
[2018-08-26 15:20] VITALS: BMI 48.5
--- NOTE | 2018-08-26 15:35 | PN ---
Teaching Attending Note Name of Resident: Ana Maria John ATTENDING PHYSICIAN STATEMENT I saw and evaluated the patient. I reviewed the resident's note and discussed the case with the resident. I agree with the resident's findings and plan as documented. SUBJECTIVE: Ms Kan is without complaint. No cp, sob, n/v. OBJECTIVE: Last Vital Signs Temp Pulse Resp BP Pulse Ox 36.8 C 64 24 H 134/73 94 L 08/26/18 10:23 08/26/18 12:36 08/26/18 12:36 08/26/18 12:36 08/26/18 10:30 Gen: nad, obese Pulm: ctab w/o w/r/r CV: rrr w/o m/r/g Abd: +bs, s/nt/nd Ext: no c/c/e CBC, BMP 08/26/18 06:45 08/25/18 05:20 ASSESSMENT AND PLAN: (1) Panniculitis Assessment/Plan: -continues to improve -continue zosyn and nystatin powder -case d/w Dr Chahal, says can change to oral antibiotics tomorrow -d/c tomorrow Code(s): M79.3 - PANNICULITIS, UNSPECIFIED (2) UTI (urinary tract infection) Assessment/Plan: -continue zosyn currently -will finish full course Code(s): N39.0 - URINARY TRACT INFECTION, SITE NOT SPECIFIED Qualifiers: Urinary tract infection type: acute cystitis Hematuria presence: without hematuria Qualified Code(s): N30.00 - Acute cystitis without hematuria (3) Pneumonia Assessment/Plan: -negative on CT scan Code(s): J18.9 - PNEUMONIA, UNSPECIFIED ORGANISM Qualifiers: Pneumonia type: due to unspecified organism Laterality: right Lung location: middle lobe of lung Qualified Code(s): J18.1 - Lobar pneumonia, unspecified organism (4) Chest pain Assessment/Plan: -resolved -atypical Code(s): R07.9 - CHEST PAIN, UNSPECIFIED (5) Coronary artery disease Assessment/Plan: -continue home regimen Code(s): I25.10 - ATHSCL HEART DISEASE OF [place] CORONARY ARTERY W/O ANG PCTRS (6) Morbid obesity Assessment/Plan: -will need outpatient weight loss program Code(s): E66.01 - MORBID (SEVERE) OBESITY DUE TO EXCESS CALORIES (7) Diabetes Assessment/Plan: -diabetic diet -FSBS and SSI Code(s): E11.9 - TYPE 2 DIABETES MELLITUS WITHOUT COMPLICATIONS Qualifiers: (8) HTN (hypertension), benign Assessment/Plan: -continue current regimen Code(s): I10 - ESSENTIAL (PRIMARY) HYPERTENSION (9) Hyperlipidemia Assessment/Plan: continue statin Code(s): E78.5 - HYPERLIPIDEMIA, UNSPECIFIED (10) CHF exacerbation Assessment/Plan: -concern for CHF exacerbation on admission -however, after fully worked up no CHF exacerbation -patient with chronic CHF -restart home dose of lasix Code(s): I50.9 - HEART FAILURE, UNSPECIFIED Qualifiers: Heart failure type: unspecified Qualified Code(s): I50.9 - Heart failure, unspecified Problem List - Problems (1) Panniculitis Code(s): M79.3 - PANNICULITIS, UNSPECIFIED (2) UTI (urinary tract infection) Code(s): N39.0 - URINARY TRACT INFECTION, SITE NOT SPECIFIED Qualifiers: Urinary tract infection type: acute cystitis Hematuria presence: without hematuria Qualified Code(s): N30.00 - Acute cystitis without hematuria (3) Pneumonia Code(s): J18.9 - PNEUMONIA, UNSPECIFIED ORGANISM Qualifiers: Pneumonia type: due to unspecified organism Laterality: right Lung location: middle lobe of lung Qualified Code(s): J18.1 - Lobar pneumonia, unspecified organism (4) Chest pain Code(s): R07.9 - CHEST PAIN, UNSPECIFIED (5) Coronary artery disease Code(s): I25.10 - ATHSCL HEART DISEASE OF [place] CORONARY ARTERY W/O ANG PCTRS (6) Morbid obesity Code(s): E66.01 - MORBID (SEVERE) OBESITY DUE TO EXCESS CALORIES (7) Diabetes Code(s): E11.9 - TYPE 2 DIABETES MELLITUS WITHOUT COMPLICATIONS Qualifiers: (8) HTN (hypertension), benign Code(s): I10 - ESSENTIAL (PRIMARY) HYPERTENSION (9) Hyperlipidemia Code(s): E78.5 - HYPERLIPIDEMIA, UNSPECIFIED (10) CHF exacerbation Code(s): I50.9 - HEART FAILURE, UNSPECIFIED Qualifiers: Heart failure type: unspecified Qualified Code(s): I50.9 - Heart failure, unspecified
--- NOTE | 2018-08-26 15:49 | PN ---
Physical Exam: SUBJECTIVE: Patient seen and examined resting in chair nad. afebrile hemodynamically stable. no acute events. feels at baseline, denies chest discomfort, sob, cough. no more diarrhea OBJECTIVE: Vital Signs Period Temp Pulse Resp BP Sys/Bowen Pulse Ox Last 24 Hr 97.8 F-98.7 F 53-65 18-24 112-150/50-78 94-98 GENERAL: The patient is awake, alert, and fully oriented, in no acute distress. HEAD: Normal with no signs of trauma. EYES: PERRL, extraocular movements intact, sclera anicteric, conjunctiva clear. No ptosis. ENT: moist mucous membranes. NECK: supple. LUNGS: Breath sounds equal, clear to auscultation bilaterally HEART: Regular rate and rhythm, S1, S2 mild systolic murmur ABDOMEN: obese, Soft, nontender, nondistended, normoactive bowel sounds, EXTREMITIES: warm, well-perfused, no edema. NEUROLOGICAL: Cranial nerves II through XII grossly intact. Normal speech, gait not observed. PSYCH: Normal mood, normal affect. SKIN: Warm, dry erythema in abdominal folds d Laboratory Results - last 24 hr 08/25/18 08/25/18 08/26/18 16:55 22:05 05:53 WBC RBC Hgb Hct MCV MCH MCHC RDW Plt Count MPV Absolute Neuts (auto) Neutrophils % Lymphocytes % Monocytes % Eosinophils % Basophils % Nucleated RBC % POC Glucometer 195 278 178 08/26/18 08/26/18 06:45 11:56 WBC 6.4 RBC 4.74 Hgb 14.1 Hct 41.4 MCV 87.2 MCH 29.6 MCHC 34.0 RDW 14.8 Plt Count 269 MPV 8.5 Absolute Neuts (auto) 4.1 Neutrophils % 63.2 Lymphocytes % 22.7 Monocytes % 8.8 Eosinophils % 4.3 Basophils % 1.0 Nucleated RBC % 0 POC Glucometer 225 Active Medications Generic Name Dose Route Start Last Admin Trade Name Freq PRN Reason Stop Dose Admin Acetaminophen 650 mg 08/25/18 20:06 Tylenol - PO Q4H PRN FEVER Apixaban 5 mg 08/25/18 22:00 08/26/18 10:30 Eliquis - PO 5 mg BID BRUCE Administration Aspirin 81 mg 08/26/18 10:00 08/26/18 10:30 Ecotrin - PO 81 mg DAILY BRUCE Administration Atorvastatin Calcium 40 mg 08/25/18 22:00 08/25/18 22:06 Lipitor - PO 40 mg HS BRUCE Administration Clopidogrel Bisulfate 75 mg 08/26/18 10:00 08/26/18 10:29 Plavix - PO 75 mg DAILY BRUCE Administration Diltiazem HCl 360 mg 08/26/18 10:00 08/26/18 12:37 Cardizem Cd - PO 360 mg DAILY BRUCE Administration Furosemide 40 mg 08/27/18 10:00 Lasix - PO DAILY BRUCE Piperacillin Sod/Tazobactam 50 mls @ 100 mls/hr 08/26/18 02:00 08/26/18 10:30 Sod 3.375 gm/ Dextrose IVPB 100 mls/hr Q8H-IV BRUCE Administration Protocol Insulin Aspart 1 vial 08/25/18 22:00 08/26/18 12:11 Novolog Vial Sliding Scale - SQ 4 units ACHS BRUCE Administration Protocol Metoprolol Succinate 50 mg 08/26/18 10:00 08/26/18 12:38 Toprol Xl - PO 50 mg DAILY BRUCE Administration Nystatin 1 applic 08/25/18 22:00 08/26/18 14:09 Nystop Powder - TP 1 applic TID BRUCE Administration Ondansetron HCl 4 mg 08/25/18 20:06 Zofran Injection IVPUSH Q6H PRN NAUSEA ASSESSMENT/PLAN: 73 y/o F with PMH thoracic aortic aneurysm s/p repair, cerebral aneurysm s/p clipping, DM, TAVR, HTN, HLD, diastolic CHF, afib, previous MIs/CAD s/p stents done at [facility] on 03/26 who presents to the ED c/o chest tightness x 1 day. Chest tightness with sob and dry cough resolved r/o chf exacerbation vs copd exacerbation obesity hypoventilation syndrome Panniculituis of abdomen UTI DM AF CAD s/p stents HLD morbid obesity -euvolemic, ct chest negative for pna; cardio consult appreciated -Urine ecoli + sensitivity appreciated -Id consult apprecited, continue zosyn d6 and nystatin powder -continue home toprol, cardizem -uncertain why patient still on dual antiplateles since stent was > 1 yr ago -continue noac, lipitor Problem List - Problems (1) CHF exacerbation Code(s): I50.9 - HEART FAILURE, UNSPECIFIED Qualifiers: Heart failure type: unspecified Qualified Code(s): I50.9 - Heart failure, unspecified (2) COPD exacerbation Code(s): J44.1 - CHRONIC OBSTRUCTIVE PULMONARY DISEASE W (ACUTE) EXACERBATION (3) Panniculitis Code(s): M79.3 - PANNICULITIS, UNSPECIFIED (4) Atypical chest pain Code(s): R07.89 - OTHER CHEST PAIN (5) UTI (urinary tract infection) Code(s): N39.0 - URINARY TRACT INFECTION, SITE NOT SPECIFIED Qualifiers: Urinary tract infection type: acute cystitis Hematuria presence: without hematuria Qualified Code(s): N30.00 - Acute cystitis without hematuria (6) Diabetes Code(s): E11.9 - TYPE 2 DIABETES MELLITUS WITHOUT COMPLICATIONS Qualifiers: (7) HTN (hypertension), benign Code(s): I10 - ESSENTIAL (PRIMARY) HYPERTENSION (8) Hyperlipidemia Code(s): E78.5 - HYPERLIPIDEMIA, UNSPECIFIED Visit type - Emergency Visit Emergency Visit: Yes ED Registration Date: 08/20/18 Care time: The patient presented to the Emergency Department on the above date and was hospitalized for further evaluation of their emergent condition. - New Patient This patient is new to me today: No - Critical Care Critical Care patient: No - Discharge Referral Referred to [facility] Med [facility] No
--- NOTE | 2018-08-26 16:23 | PN ---
Progress Note, Physician - Current Medication List Current Medications: Active Medications Acetaminophen (Tylenol -) 650 mg PO Q4H PRN PRN Reason: FEVER Apixaban (Eliquis -) 5 mg PO BID [facility] Last Admin: 08/26/18 10:30 Dose: 5 mg Aspirin (Ecotrin -) 81 mg PO DAILY [facility] Last Admin: 08/26/18 10:30 Dose: 81 mg Atorvastatin Calcium (Lipitor -) 40 mg PO HS [facility] Last Admin: 08/25/18 22:06 Dose: 40 mg Clopidogrel Bisulfate (Plavix -) 75 mg PO DAILY [facility] Last Admin: 08/26/18 10:29 Dose: 75 mg Diltiazem HCl (Cardizem Cd -) 360 mg PO DAILY [facility] Last Admin: 08/26/18 12:37 Dose: 360 mg Furosemide (Lasix -) 40 mg PO DAILY [facility] Piperacillin Sod/Tazobactam (Sod 3.375 gm/ Dextrose) 50 mls @ 100 mls/hr IVPB Q8H-IV [facility]; Protocol Last Admin: 08/26/18 10:30 Dose: 100 mls/hr Insulin Aspart (Novolog Vial Sliding Scale -) 1 vial SQ ACHS [facility]; Protocol Last Admin: 08/26/18 12:11 Dose: 4 units Metoprolol Succinate (Toprol Xl -) 50 mg PO DAILY [facility] Last Admin: 08/26/18 12:38 Dose: 50 mg Nystatin (Nystop Powder -) 1 applic TP TID [facility] Last Admin: 08/26/18 14:09 Dose: 1 applic Ondansetron HCl (Zofran Injection) 4 mg IVPUSH Q6H PRN PRN Reason: NAUSEA - Objective Vital Signs: Vital Signs Temperature 98.7 F 08/26/18 14:33 Pulse Rate 65 08/26/18 14:33 Respiratory Rate 20 08/26/18 14:33 Blood Pressure 112/50 L 08/26/18 14:33 O2 Sat by Pulse Oximetry (%) 94 L 08/26/18 10:30 Labs: CBC, BMP 08/26/18 06:45 08/25/18 05:20
--- NOTE | 2018-08-26 16:43 | PN ---
Progress Note, Physician Chief Complaint: Pt A&Ox3; left inquinal rash less painful; dyspneic on mild exertion; no chest pain. (It is difficult for her to do even simple tasks like getting up from bed becasue of her weight). History of Present Illness: The patient is a 73 year old white female, with a significant PMH of morbid obesity COPD,diastolic CHF, CAD s/p stent, DM, HTN, and Afib who presents to the emergency department with a progressively worsening cough for the past week , and SOB for the past 3 hours. The patient denies chest pain,, headache and dizziness. Denies nausea, vomiting, diarrhea and constipation. Denies dysuria, frequency, urgency and hematuria. Allergies: NKA - Current Medication List Current Medications: Active Medications Acetaminophen (Tylenol -) 650 mg PO Q4H PRN PRN Reason: FEVER Amoxicillin/Clavulanate Potassium (Augmentin - 875mg Tablet) 1 tab PO BID@0800, 1730 [facility] Apixaban (Eliquis -) 5 mg PO BID [facility] Last Admin: 08/26/18 10:30 Dose: 5 mg Aspirin (Ecotrin -) 81 mg PO DAILY [facility] Last Admin: 08/26/18 10:30 Dose: 81 mg Atorvastatin Calcium (Lipitor -) 40 mg PO HS [facility] Last Admin: 08/25/18 22:06 Dose: 40 mg Clopidogrel Bisulfate (Plavix -) 75 mg PO DAILY [facility] Last Admin: 08/26/18 10:29 Dose: 75 mg Diltiazem HCl (Cardizem Cd -) 360 mg PO DAILY [facility] Last Admin: 08/26/18 12:37 Dose: 360 mg Furosemide (Lasix -) 40 mg PO DAILY [facility] Insulin Aspart (Novolog Vial Sliding Scale -) 1 vial SQ ACHS [facility]; Protocol Last Admin: 08/26/18 12:11 Dose: 4 units Metoprolol Succinate (Toprol Xl -) 50 mg PO DAILY [facility] Last Admin: 08/26/18 12:38 Dose: 50 mg Nystatin (Nystop Powder -) 1 applic TP TID [facility] Last Admin: 08/26/18 14:09 Dose: 1 applic Ondansetron HCl (Zofran Injection) 4 mg IVPUSH Q6H PRN PRN Reason: NAUSEA - Objective Vital Signs: Vital Signs Temperature 98.7 F 08/26/18 14:33 Pulse Rate 65 08/26/18 14:33 Respiratory Rate 20 08/26/18 14:33 Blood Pressure 112/50 L 08/26/18 14:33 O2 Sat by Pulse Oximetry (%) 94 L 08/26/18 10:30 Constitutional: Yes: Calm, Obese Eyes: Yes: WNL Labs: CBC, BMP 08/26/18 06:45 08/25/18 05:20 Problem List - Problems (1) COPD exacerbation Assessment/Plan: Continue bronchodilators, steroids, antibiotics, and O2 per form worker. Code(s): J44.1 - CHRONIC OBSTRUCTIVE PULMONARY DISEASE W (ACUTE) EXACERBATION (2) HTN (hypertension), benign Code(s): I10 - ESSENTIAL (PRIMARY) HYPERTENSION (3) Hyperlipidemia Assessment/Plan: statin; f/u lipid levels. Keep LDL < 70 mg/dl. Code(s): E78.5 - HYPERLIPIDEMIA, UNSPECIFIED (4) SVT (supraventricular tachycardia) Code(s): I47.1 - SUPRAVENTRICULAR TACHYCARDIA (5) Sleep apnea Code(s): G47.30 - SLEEP APNEA, UNSPECIFIED (6) History of heart artery stent Code(s): Z95.5 - PRESENCE OF CORONARY ANGIOPLASTY IMPLANT AND GRAFT (7) Paroxysmal atrial fibrillation Code(s): I48.0 - PAROXYSMAL ATRIAL FIBRILLATION (8) Morbid obesity Code(s): E66.01 - MORBID (SEVERE) OBESITY DUE TO EXCESS CALORIES (9) Rash of groin Assessment/Plan: On IV antibioticss. Code(s): R21 - RASH AND OTHER NONSPECIFIC SKIN ERUPTION
[2018-08-26] MEDS: AMOX TR/POT CLAV 875MG/125MG TABLETS (FP) PO SCH (17:20)
[2018-08-26] MEDS: ATORVASTATIN CA 40 MG TABLET (FP) PO SCH (21:09)
[2018-08-27] MEDS: NYSTATIN POWDER 100,000 UNITS/GM - 15 GM TOPICAL POWDER TP SCH (06:23)
[2018-08-27] MEDS: INSULIN SLIDING SCALE (NOVOLOG) 1 VIAL SQ SCH ×2 (06:23→11:21)
[2018-08-27] MEDS: AMOX TR/POT CLAV 875MG/125MG TABLETS (FP) PO SCH (08:29)
[2018-08-27] MEDS ORDERED: FUROSEMIDE 40 MG TABLET (FP) PO SCH (10:00)
[2018-08-27 10:13] VITALS: BP 145/75; PULSE 60; TEMP 98.2
--- NOTE | 2018-08-27 10:14 | DS ---
Physical Exam: SUBJECTIVE: Patient seen and examined resting in chair nad. afebrile hemodynamically stable. no acute events. feels at baseline, denies chest discomfort, sob, cough. no more diarrhea OBJECTIVE: Vital Signs Period Temp Pulse Resp BP Sys/Bowen Pulse Ox Last 24 Hr 98 F-98.8 F 56-96 20-24 112-178/50-91 94-96 PHYSICAL EXAM GENERAL: The patient is awake, alert, and fully oriented, in no acute distress. HEAD: Normal with no signs of trauma. EYES: PERRL, extraocular movements intact, sclera anicteric, conjunctiva clear. No ptosis. ENT: moist mucous membranes. NECK: supple. LUNGS: Breath sounds equal, clear to auscultation bilaterally HEART: Regular rate and rhythm, S1, S2 mild systolic murmur ABDOMEN: obese, Soft, nontender, nondistended, normoactive bowel sounds, EXTREMITIES: warm, well-perfused, no edema. NEUROLOGICAL: Cranial nerves II through XII grossly intact. Normal speech, gait not observed. PSYCH: Normal mood, normal affect. SKIN: Warm, dry erythema in L abdominal fold, improved LABS Laboratory Results - last 24 hr 08/26/18 08/26/18 08/26/18 11:56 17:13 21:07 POC Glucometer 225 214 220 08/27/18 06:21 POC Glucometer 188 HOSPITAL COURSE: Date of Admission:08/20/18 This is a 73 y/o F with PMH thoracic aortic aneurysm s/p repair, cerebral aneurysm s/p clipping, DM, TAVR, HTN, HLD, diastolic CHF, afib, previous MIs/ CAD s/p stents done at [facility] on 03/26 who presents to the ED c/o chest tightness x 1 day. Chest tightness with sob and dry cough resolved very quickly , it may have been caused by mild chf exacerbation and copd. She was noted to have Panniculituis of abdomen for which she received 7 d of in hospital abx and was sent home on 7 more d of augmentin. Date of Discharge: 08/27/18 Minutes to complete discharge: 35 Discharge Summary Reason For Visit: ACUTE ON CHRONIC CONGEDTIVE HEART FAILURE Current Active Problems CHF exacerbation (Acute) COPD exacerbation (Acute) Panniculitis (Acute) Pneumonia (Acute) Rash of groin (Acute) Condition: Good - Instructions Diet, Activity, Other Instructions: You were in the hospital with chest tightness. It was probably caused by a combination of mild heart failure and copd. Your symptoms quickly resolved, however you remained in the hospital for several days to receive IV antibiotics for the rash on your lower abdomen. Please continue taking Oral antibiotic Augmentin twice a day for 8 more days starting tonight New medications: Augmentin 875 mg twice a day sent to [facility] Continue taking all other medications as usual Follow up with primary doctor in 1 week to check your rash Follow up with cardiology in 2 weeks Return to the hospital if severe symptoms recur. Referrals: Baldemar Chahal MD [Staff Physician] - Mike Browning MD [Staff Physician] - Disposition: HOME - Home Medications Comprehensive Discharge Medication List: Ambulatory Orders Atorvastatin Ca [Lipitor] 40 mg PO HS tablet 11/12/15 Metoprolol Succinate [Toprol XL -] 50 mg PO DAILY tab.sr.24h 11/12/15 Ranitidine [Zantac -] 150 mg PO BID tablet 11/12/15 Sertraline HCl [Zoloft -] 25 mg PO DAILY tablet 11/12/15 metFORMIN HCL [Glucophage -] 500 mg PO BIDI tablet 11/12/15 Apixaban [Eliquis] 5 mg PO BID 12/22/15 Diltiazem Cd [Cardizem Cd -] 360 mg PO DAILY #60 cap.cd.24h 03/25/16 Furosemide [Lasix -] 40 mg PO DAILY 10/06/16 Aspirin Coated [Ecotrin -] 81 mg PO DAILY tablet.ec 05/22/17 Clopidogrel Bisulfate [Plavix -] 75 mg PO DAILY #30 tablet 05/22/17 Nystatin Powder [Nystop Powder -] 1 applic TP DAILY #1 applic 05/22/17 Amox-Tr/K Cl [Augmentin 875-125mg Tablet -] 1 tab PO BID@0800,1730 #15 tablet Problem List - Problems (1) CHF exacerbation Code(s): I50.9 - HEART FAILURE, UNSPECIFIED Qualifiers: Heart failure type: unspecified Qualified Code(s): I50.9 - Heart failure, unspecified (2) COPD exacerbation Code(s): J44.1 - CHRONIC OBSTRUCTIVE PULMONARY DISEASE W (ACUTE) EXACERBATION (3) Panniculitis Code(s): M79.3 - PANNICULITIS, UNSPECIFIED (4) Atypical chest pain Code(s): R07.89 - OTHER CHEST PAIN (5) UTI (urinary tract infection) Code(s): N39.0 - URINARY TRACT INFECTION, SITE NOT SPECIFIED Qualifiers: Urinary tract infection type: acute cystitis Hematuria presence: without hematuria Qualified Code(s): N30.00 - Acute cystitis without hematuria (6) Diabetes Code(s): E11.9 - TYPE 2 DIABETES MELLITUS WITHOUT COMPLICATIONS Qualifiers: (7) HTN (hypertension), benign Code(s): I10 - ESSENTIAL (PRIMARY) HYPERTENSION (8) Hyperlipidemia Code(s): E78.5 - HYPERLIPIDEMIA, UNSPECIFIED This patient is new to me today: No Emergency Visit: Yes ED Registration Date: 08/20/18 Care time: The patient presented to the Emergency Department on the above date and was hospitalized for further evaluation of their emergent condition. Critical Care patient: No - Discharge Referral Referred to [facility] Med P.C.: No
[2018-08-27] MEDS ORDERED: PT OWN MED DRAWER 7, Y5N ONE (10:16)
[2018-08-27] MEDS: APIXABAN 5 MG TABLET PO SCH (10:22)
[2018-08-27] MEDS: CLOPIDOGREL BISULFATE 75 MG TABLET (FP) PO SCH (10:22)
[2018-08-27] MEDS: ASPIRIN COATED 81 MG TABLET.EC PO SCH (10:22)
--- NOTE | 2018-08-27 11:11 | PN ---
Teaching Attending Note Name of Resident: Ana Maria John ATTENDING PHYSICIAN STATEMENT I saw and evaluated the patient. I reviewed the resident's note and discussed the case with the resident. I agree with the resident's findings and plan as documented. SUBJECTIVE: Ms Kan is without complaint and is eager to go home OBJECTIVE: Gen: nad Pulm: ctab w/o w/r/r CV: rrr w/o m/r/g Abd: +bs, s/nt/nd Ext: no c/c/e Please refer to discharge summary but in short Ms Kan is a very pleasant 73 year old female who came in with panniculitis, UTI, and slight COPD exacerbation. She was treated for COPD and her shortness of breath resolved. She was evaluated both for pneumonia and CHF exacerbation but this was negative. She was seen by ID and received 7 days of zosyn. Currently she is safe for discharge on augmentin. Problem List - Problems (1) Panniculitis Code(s): M79.3 - PANNICULITIS, UNSPECIFIED (2) UTI (urinary tract infection) Code(s): N39.0 - URINARY TRACT INFECTION, SITE NOT SPECIFIED Qualifiers: Urinary tract infection type: acute cystitis Hematuria presence: without hematuria Qualified Code(s): N30.00 - Acute cystitis without hematuria (3) Pneumonia Code(s): J18.9 - PNEUMONIA, UNSPECIFIED ORGANISM Qualifiers: Pneumonia type: due to unspecified organism Laterality: right Lung location: middle lobe of lung Qualified Code(s): J18.1 - Lobar pneumonia, unspecified organism (4) Chest pain Code(s): R07.9 - CHEST PAIN, UNSPECIFIED (5) Coronary artery disease Code(s): I25.10 - ATHSCL HEART DISEASE OF [place] CORONARY ARTERY W/O ANG PCTRS (6) Morbid obesity Code(s): E66.01 - MORBID (SEVERE) OBESITY DUE TO EXCESS CALORIES (7) Diabetes Code(s): E11.9 - TYPE 2 DIABETES MELLITUS WITHOUT COMPLICATIONS Qualifiers: (8) HTN (hypertension), benign Code(s): I10 - ESSENTIAL (PRIMARY) HYPERTENSION (9) Hyperlipidemia Code(s): E78.5 - HYPERLIPIDEMIA, UNSPECIFIED (10) CHF exacerbation Code(s): I50.9 - HEART FAILURE, UNSPECIFIED Qualifiers: Heart failure type: unspecified Qualified Code(s): I50.9 - Heart failure, unspecified
--- NOTE | 2018-08-27 12:29 | PN ---
Progress Note, Physician History of Present Illness: 73YOF with h/o CAD s/p stent (x1 2008), COPD, CHF, thoracic aortic aneurysm s/p repair, cerebral aneurysm s/p clipping, DM, HTN, Afib (on eliquis), and morbid obesity. She presents with cough/sore throat worsening for the past week with 2- 3 hours of increased SOB and wheezing. The patient states she has been taking all her medications as she is supposed to, including her diuretics. She does not have any breathing treatments left at home. She has had much worse BARBOZA than normal lately, denies any new leg swelling or calf pain, a little bit of right hip/thigh pain. States she does not monitor her weight closely at home. Has chills but denies measured fever, n/v/d/c, chest pain, back pain, abdominal pain , or other symptoms. Past History Ongoing medical problems ASHD promus stent pLAD 2008 PCI RCA 05/27/17 Atrial fibrillation 2016 CHF diastolic DM GERD HHD HTN Hyperlipidemia Morbid obesity Negative MIBI ST September 2011, March 2015 - Current Medication List Current Medications: Active Medications Acetaminophen (Tylenol -) 650 mg PO Q4H PRN PRN Reason: FEVER Amoxicillin/Clavulanate Potassium (Augmentin - 875mg Tablet) 1 tab PO BID@0800, 1730 [facility] Last Admin: 08/27/18 08:29 Dose: 1 tab Apixaban (Eliquis -) 5 mg PO BID [facility] Last Admin: 08/27/18 10:22 Dose: 5 mg Aspirin (Ecotrin -) 81 mg PO DAILY [facility] Last Admin: 08/27/18 10:22 Dose: 81 mg Atorvastatin Calcium (Lipitor -) 40 mg PO HS [facility] Last Admin: 08/26/18 21:09 Dose: 40 mg Clopidogrel Bisulfate (Plavix -) 75 mg PO DAILY [facility] Last Admin: 08/27/18 10:22 Dose: 75 mg Diltiazem HCl (Cardizem Cd -) 360 mg PO DAILY [facility] Last Admin: 08/27/18 10:22 Dose: 360 mg Furosemide (Lasix -) 40 mg PO DAILY [facility] Last Admin: 08/27/18 10:22 Dose: 40 mg Insulin Aspart (Novolog Vial Sliding Scale -) 1 vial SQ [facility]; Protocol Last Admin: 08/27/18 11:21 Dose: 4 units Metoprolol Succinate (Toprol Xl -) 50 mg PO DAILY [facility] Last Admin: 08/27/18 10:22 Dose: 50 mg Nystatin (Nystop Powder -) 1 applic TP TID [facility] Last Admin: 08/27/18 06:23 Dose: 1 applic Ondansetron HCl (Zofran Injection) 4 mg IVPUSH Q6H PRN PRN Reason: NAUSEA - Objective Vital Signs: Vital Signs Temperature 98.2 F 08/27/18 10:07 Pulse Rate 60 08/27/18 10:07 Respiratory Rate 24 H 08/27/18 10:07 Blood Pressure 145/75 08/27/18 10:07 O2 Sat by Pulse Oximetry (%) 96 08/26/18 21:00 Eyes: Yes: WNL, Conjunctiva Clear, EOM Intact HENT: Yes: WNL, Atraumatic, Normocephalic Neck: Yes: WNL, Supple, Trachea Midline Cardiovascular: Yes: WNL, Regular Rate and Rhythm Respiratory: Yes: WNL, Regular, CTA Bilaterally Gastrointestinal: Yes: WNL, Normal Bowel Sounds Genitourinary: Yes: WNL Musculoskeletal: Yes: WNL Extremities: Yes: WNL Edema: No Integumentary: Yes: WNL Neurological: Yes: WNL, Alert, Oriented ...Motor Strength: WNL Psychiatric: Yes: WNL Labs: CBC, BMP 08/26/18 06:45 08/25/18 05:20 Assessment/Plan - Problems (1) COPD exacerbation Assessment/Plan: Continue bronchodilators, steroids, antibiotics, and O2 per medical office scheduler. Code(s): J44.1 - CHRONIC OBSTRUCTIVE PULMONARY DISEASE W (ACUTE) EXACERBATION (2) HTN (hypertension), benign Code(s): I10 - ESSENTIAL (PRIMARY) HYPERTENSION (3) Hyperlipidemia Assessment/Plan: statin; f/u lipid levels. Keep LDL < 70 mg/dl. Code(s): E78.5 - HYPERLIPIDEMIA, UNSPECIFIED (4) SVT (supraventricular tachycardia) Code(s): I47.1 - SUPRAVENTRICULAR TACHYCARDIA (5) Sleep apnea Code(s): G47.30 - SLEEP APNEA, UNSPECIFIED (6) History of heart artery stent Code(s): Z95.5 - PRESENCE OF CORONARY ANGIOPLASTY IMPLANT AND GRAFT (7) Paroxysmal atrial fibrillation Code(s): I48.0 - PAROXYSMAL ATRIAL FIBRILLATION (8) Morbid obesity Code(s): E66.01 - MORBID (SEVERE) OBESITY DUE TO EXCESS CALORIES (9) Rash of groin Assessment/Plan: On IV antibioticss. Code(s): R21 - RASH AND OTHER NONSPECIFIC SKIN ERUPTION
== END 2018-08-27 16:21 | disposition home health service (06) | DRG 191 ==
LOC: JER 20:08 → JERBED 23:13 → J4W 08-21 15:08 → J5S 08-25 20:02
PROVIDERS: ADMIT Internal Medicine; ATTEND Internal Medicine
DX: J44.1 Chronic obstructive pulmonary disease with (acute) exacerbation (principal); I47.1 Supraventricular tachycardia; I50.30 Unspecified diastolic (congestive) heart failure; Z68.42 Body mass index [BMI] 45.0-49.9, adult; N39.0 Urinary tract infection, site not specified; E11.9 Type 2 diabetes mellitus without complications; I25.10 Atherosclerotic heart disease of native coronary artery without angina pectoris; R07.89 Other chest pain; M79.3 Panniculitis, unspecified; I48.0 Paroxysmal atrial fibrillation; I11.0 Hypertensive heart disease with heart failure; K21.9 Gastro-esophageal reflux disease without esophagitis; E78.5 Hyperlipidemia, unspecified; G47.33 Obstructive sleep apnea (adult) (pediatric); E66.01 Morbid (severe) obesity due to excess calories; I25.2 Old myocardial infarction; F41.9 Anxiety disorder, unspecified; B96.20 Unspecified Escherichia coli [E. coli] as the cause of diseases classified elsewhere; R21 Rash and other nonspecific skin eruption; Z95.5 Presence of coronary angioplasty implant and graft
CPT/HCPCS: 36415; 71045-TC-FY; 71250-TC; 80048; 80053; 80061; 81003; 82550; 82553; 82803; 82962; 83036; 83721; 83735; 83880; 84100; 84484; 85025; 87040; 87086; 87186; 93005; 93010; 93306-TC; 97116-GP; 97161-GP; 99284-25; J0131; J7030

== ENCOUNTER → 2018-11-03 | Outpatient (CLI) | payer MEDICARE, OTHER | LOC: YHH 11:29 ==

== ENCOUNTER 2018-12-01 20:08 | Inpatient (IN) | payer MEDICARE, OTHER ==
--- NOTE | 2018-12-01 20:32 | PDOC ---
Attending Attestation - Resident Resident Name: Kya Toribio - ED Attending Attestation I have performed the following: I have examined & evaluated the patient, The case was reviewed & discussed with the resident, I agree w/resident's findings & plan - HPI HPI: see resident hpi - Physicial Exam PE: 12/02/18 05:04 on exam right DP pulse not palpable, distal perfusion in tact with brisk cap refill, appropriately warm to touch - Medical Decision Making 12/02/18 05:07 12/02/18 05:02 73 yo with int left foot pain CTA of abs with fem run off c/w right sided lower leg arterial occlusion plan for admit 12/02/18 05:03
--- NOTE | 2018-12-01 21:03 | PDOC ---
History of Present Illness - General Chief Complaint: Pain Stated Complaint: LEFT FOOT PAIN Time Seen by Provider: 12/01/18 20:28 History Source: Patient Exam Limitations: No Limitations - History of Present Illness Initial Comments: 12/01/18 20:58 73 yo F PMH CAD s/p stent (x1 2008), COPD, CHF, thoracic aortic aneurysm s/p repair, cerebral aneurysm s/p clipping, NIDDM, HTN, Afib (on Eliquis), and morbid obesity, presenting with L toe pain. Said that out of nowhere, her three lateral L toes turned blue and were acutely painful, starting about 2 hours ago. However, the pain and color change have since resolved. Currently, her only complaint is that "my left toes seem swollen compared to my right toes". Denies CP, SOB, cough, N/V, abd pain, constipation/diarrhea, fevers/chills. Past History - Past Medical History Allergies/Adverse Reactions: Allergies Allergy/AdvReac Type Severity Reaction Status Date / Time pregabalin [From Lyrica] Allergy Intermediate Verified 12/02/18 08:08 budesonide [From Symbicort] Allergy Verified 12/02/18 08:08 celecoxib [From Celebrex] Allergy Verified 12/02/18 08:08 formoterol fumarate Allergy Verified 12/02/18 08:08 [From Symbicort] sulfacetamide sodium Allergy Verified 12/02/18 08:08 [From Sulfamide] Home Medications: Ambulatory Orders Atorvastatin Ca [Lipitor] 40 mg PO HS tablet 11/12/15 Metoprolol Succinate [Toprol XL -] 50 mg PO DAILY tab.sr.24h 11/12/15 Ranitidine [Zantac -] 150 mg PO BID tablet 11/12/15 Apixaban [Eliquis] 5 mg PO BID 12/22/15 Diltiazem Cd [Cardizem Cd -] 360 mg PO DAILY #60 cap.cd.24h 03/25/16 Furosemide [Lasix -] 40 mg PO DAILY 10/06/16 Aspirin Coated [Ecotrin -] 81 mg PO DAILY tablet.ec 05/22/17 Lisinopril 5 mg PO DAILY 12/03/18 metFORMIN HCL [Glucophage -] 500 mg PO BIDI #0 tablet 12/03/18 Anemia: No Asthma: Yes Cancer: No Cardiac Disorders: Yes (2008 STENT X1,A-fib) 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) COPD: No CHF: No DVT: No Dementia: No Diabetes: Yes GI Disorders: Yes (UMBILICAL HERNIA) Disorders: No HTN: Yes Hypercholesterolemia: Yes Liver Disease: No Seizures: No Thyroid Disease: No - Surgical History Abdominal Surgery: No Appendectomy: No Cardiac Surgery: Yes (STENT X 1, LOOP RECORDER INSERTION) Cholecystectomy: No Lung Surgery: Yes (biopsy May 2013) Neurologic Surgery: Yes (brain aneurysm clipped) Orthopedic Surgery: No - Immunization History Td Vaccination: Yes Immunization Up to Date: Yes - Psycho Social/Smoking Cessation Hx Smoking Status: Yes Smoking History: Never smoked Years of Tobacco Use: 0 Have you smoked in the past 12 months: No Number of Cigarettes Smoked Daily: 0 If you are a former smoker, when did you quit?: 1970 Cigars Per Day: 0 'Breaking Loose' booklet given: 08/17/13 Hx Alcohol Use: No Drug/Substance Use Hx: No Substance Use Type: None Hx Substance Use Treatment: No Review of Systems - Review of Systems Able to Perform ROS?: Yes Constitutional: No: Chills, Diaphoresis, Fever, Weakness HEENTM: No: Eye Pain, Recent change in vision, Double Vision, Throat Swelling, Difficulty Swallowing Respiratory: No: Cough, Orthopnea, Shortness of Breath Cardiac (ROS): Yes: Irregular Heart Rate (chronic). No: Chest Pain, Edema, Lightheadedness, Syncope, Chest Tightness ABD/GI: No: Abdominal Distended, Constipated, Diarrhea, Difficulty Swallowing, Nausea, Vomiting : No: Burning, Dysuria, Discharge, Flank Pain, Hematuria Musculoskeletal: No: Back Pain Integumentary: No: Bruising Neurological: No: Headache, Numbness, Paresthesia, Tingling, Weakness, Dizziness *Physical Exam - Physical Exam Comments: 12/01/18 21:02 Gen: NAD, well-nourished, morbidly obese HEENT: atraumatic, normocephalic Neck: trachea midline, supple, thick CV: irregular, normal rate Pulm: CTA b/l, no wheezing Abd: soft, non-distended, non-tender Extr: no edema, 2+ b/l, no tenderness in any of the toes, no apparent swelling MSK: normal musculature, full ROM in all extremities Skin: slightly cool in BLE, dry Neuro: AAOX4, CNII-XII intact, FTN intact ED Treatment Course - LABORATORY CBC & Chemistry Diagram: 12/02/18 09:58 12/02/18 07:00 - RADIOLOGY Radiology Studies Ordered: Category Date Time Status DUPLEX VASCUL US-1 LEG [US] Stat Ultrasound 12/01/18 20:54 Ordered Medical Decision Making - Medical Decision Making 12/01/18 21:06 Patient noted to be hypertensive to the 190s systolic. L toe pain and swelling appear to have resolved. - CBC, CMP - EKG - coags - likely dc home with PCP f/u pending labs and BP normalization 12/01/18 22:[address] Haines. Discharge - Discharge Information Problems reviewed: Yes Clinical Impression/Diagnosis: Arterial occlusion Condition: Stable Disposition: HOME - Follow up/Referral - Patient Discharge Instructions - Post Discharge Activity
[2018-12-01 21:30] LABS: BASO % 0.8 % (0-2.0); EOS % 3.2 % (0-4.5); HEMATOCRIT 43.7 % (32.4-45.2); HEMOGLOBIN 14.6 GM/dL (10.7-15.3); MCH 30.4 pg (25.7-33.7); MCHC 33.5 g/dl (32.0-36.0); MEAN CELL VOLUME 90.8 fl (80-96); MEAN PLT VOLUME 7.7 fl (7.5-11.1); PLATELET COUNT 214 K/MM3 (134-434); RBC 4.81 M/mm3 (3.60-5.2); RDW 15.2 % (11.6-15.6); WHITE BLOOD COUNT 5.3 K/mm3 (4.0-10.0)
[2018-12-01 21:45] LABS: INR 1.07 (0.83-1.09); PROTHROMBIN TIME (PATIENT) 12.6 SEC (9.7-13.0)
[2018-12-01 21:47] LABS: ACTIVATED PTT 34.9 SECONDS (25.2-36.5)
[2018-12-01 21:55] LABS: ALBUMIN 3.2 g/dl (3.4-5.0); BILIRUBIN,TOTAL 0.4 mg/dL (0.2-1); BLOOD UREA NITROGEN 20.8 mg/dL (7-18); CALCIUM 8.9 mg/dL (8.5-10.1); TOT PROT 6.6 g/dl (6.4-8.2)
--- NOTE | 2018-12-01 22:04 | PDOC ---
*Physical Exam - Vital Signs Last Vital Signs Temp Pulse Resp BP Pulse Ox 98.6 F 65 18 197/85 H 97 12/01/18 20:08 12/01/18 20:08 12/01/18 20:08 12/01/18 20:08 12/01/18 20:08 ED Treatment Course - LABORATORY CBC & Chemistry Diagram: 12/02/18 09:58 12/02/18 07:00 - ADDITIONAL ORDERS Additional order review: Laboratory Results 12/01/18 12/01/18 21:10 21:10 PT with INR 12.60 INR 1.07 PTT (Actin FS) 34.9 Sodium 140 Potassium 4.0 Chloride 104 Carbon Dioxide 28 Anion Gap 7 L BUN 20.8 H Creatinine 1.0 Est GFR (CKD-EPI)AfAm 64.27 Est GFR (CKD-EPI)NonAf 55.45 Random Glucose 192 H Calcium 8.9 Total Bilirubin 0.4 AST 10 L ALT 23 Alkaline Phosphatase 75 Total Protein 6.6 Albumin 3.2 L 12/01/18 21:10 RBC 4.81 MCV 90.8 MCHC 33.5 RDW 15.2 MPV 7.7 Neutrophils % 57.0 Lymphocytes % 30.0 D Monocytes % 9.0 Eosinophils % 3.2 Basophils % 0.8 Medical Decision Making - Medical Decision Making 12/01/18 22:[address] Toribio. Patient is a 73 yo female w/ pmh of CAD s/p stent ('09), COPD, CHF, aortic aneurysm s/p repair, NIDDM, HTN, Afib on eliquis , morbid obesity who presents w/ LEFT toe pain concerning for arterial occlusion. Normal LLE doppler. 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 Patient not complaining of right sided lower extremity pain at this time. Patient will come in to hospital for vascular evaluation. Discharge - Discharge Information Problems reviewed: Yes Clinical Impression/Diagnosis: Arterial occlusion - Admission Yes - Follow up/Referral - Patient Discharge Instructions - Post Discharge Activity
[2018-12-01] MEDS ORDERED: ACETAMINOPHEN 1000 MG/100 ML VIAL (NON FORMULARY) IVPB ONE (22:58)
[2018-12-01] MEDS ORDERED: ACETAMINOPHEN INJECTION 100 ML IVPB ONE (23:04)
--- NOTE | 2018-12-02 04:18 | PN ---
Teaching Attending Note Name of Resident: Oh Mejia ATTENDING PHYSICIAN STATEMENT I saw and evaluated the patient. I reviewed the resident's note and discussed the case with the resident. I agree with the resident's findings and plan as documented. SUBJECTIVE: Patient is a 73 year old woman with a PMH of CAD s/p stent (x1 in 2008), COPD, CHF, Thoracic aortic aneurysm s/p repair, Cerebral aneurysm s/p clipping, NIDDM , HTN, Afib (on Eliquis), and Morbid obesity, who presents with left toe pain. Said that out of nowhere, her three lateral left toes turned blue and were acutely painful, starting about 2 hours ago. However, the pain and color change have since resolved. Currently, her only complaint is that "my left toes seem swollen compared to my right toes". Denies chest pain, SOB, cough, nausea, vomiting, abdominal pain, constipation, diarrhea, fevers, chills or trauma to the foot. OBJECTIVE: Alert Vital Signs Period Temp Pulse Resp BP Sys/Bowen Pulse Ox Last 24 Hr 98.2 F-98.6 F 64-65 18-20 183-197/61-85 97-97 HEENT: No Jaundice, eye redness or discharge, PERRLA, EOMI. Normocephalic, atraumatic. External ears are normal and hearing is grossly intact. No nasal discharge. Neck: Supple, nontender. No palpable adenopathy or thyromegaly. No JVD Chest: Good effort. Clear to auscultation and percussion. Heart: Irregularly irregular. No S3, rub or murmur Abdomen: Not distended, soft, nontender and no HSM. No rebound or guarding. Normal bowel sounds. Ext: Peripheral pulses intact. No leg edema. Skin: Warm and dry. No petechiae, rash or ecchymosis. Neuro: Alert. Oriented x3. CN 2-12 grossly intact. Sensation grossly intact in all four extremities and DTR are symmetric. Psych: Appropriate mood and affect. Good insight. Home Medications Medication Instructions Recorded Atorvastatin Ca [Lipitor] 40 mg PO HS tablet 11/12/15 Metoprolol Succinate [Toprol XL -] 50 mg PO DAILY tab.sr.24h 11/12/15 Ranitidine [Zantac -] 150 mg PO BID tablet 11/12/15 metFORMIN HCL [Glucophage -] 500 mg PO BIDI tablet 11/12/15 Apixaban [Eliquis] 5 mg PO BID 12/22/15 Diltiazem Cd [Cardizem Cd -] 360 mg PO DAILY #60 cap.cd.24h 03/25/16 Furosemide [Lasix -] 40 mg PO DAILY 10/06/16 Aspirin Coated [Ecotrin -] 81 mg PO DAILY tablet.ec 05/22/17 Abnormal Lab Results 12/01/18 21:10 Anion Gap 7 L BUN 20.8 H Random Glucose 192 H AST 10 L Albumin 3.2 L ASSESSMENT AND PLAN: 1. Lower extremity arterial occlusion - Normal LLE doppler. 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 Patient not complaining of right sided lower extremity pain at this time. Her complaint was LEFT toe pain. Patient is on Eliquis 5 mg bid - will continue Eliquis for now and consult Vascular surgery. It is possible that her current dose of Eliquis is suboptimal for her considering her weight. Will continue comprehensive care for all of patients comorbid conditions including Afib management. EKG is pending. 2. Hypoalbuminemia - Possibly due to combined effects of malnutrition and inflammation associated with comorbid chronic conditions. Will ensure adequate dietary protein intake and also consult corrections counselor. 3. DM For now, we will hold the home diabetes drugs and implement sliding scale insulin regimen. Provide comprehensive diabetes care with patient teaching and counseling about the importance of adherence to prescribed diabetes regimen, euglycemia, eye care and foot care. 4. Morbid obesity Counseled on the risks associated with obesity. Will provide patient all the necessary assistance, counseling and positive reinforcement to facilitate weight loss. Consult corrections counselor. 5. Uncontrolled Hypertension - Will recheck BP with right-size cuff. Restart suitable outpatient antihypertensive drugs when clinically appropriate. Revise regimen to ensure [id number] excellent BP control and assessment counselor patient on the injurious effects of uncontrolled hypertension. Nonpharmacologic measures to control hypertension like weight loss, salt restriction and exercise discussed. Importance of adherence to treatment regimen and attainment of normotension emphasized. 6. DVT prophylaxis - On Eliquis 7. Advance directives - Full code
--- NOTE | 2018-12-02 05:58 | HP ---
CHIEF COMPLAINT: PCP: HISTORY OF PRESENT ILLNESS: 3 y/o/f with PMHx of CAD s/p stent (x1 2008), COPD, CHF, thoracic aortic aneurysm s/p repair, cerebral aneurysm s/p clipping, NIDDM, HTN, Afib (on Eliquis), and morbid obesity here for pain in her left toes. She states this pain started about 1.5 hours prior to arrival in the ED. She states her left toes were all painful, blue tinged, and swollen. The symptoms in her left toes have improved, she no longer has pain. She took tylenol without improvement. Patient also complains of a dry cough and neck pain for the last few days. She denies any chest pain, SOB, dizziness, abd pain, throat pain, fever. 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 Allergies pregabalin [From Lyrica] Allergy (Intermediate, Verified 08/20/18 20:40) budesonide [From Symbicort] Allergy (Verified 08/20/18 20:40) celecoxib [From Celebrex] Allergy (Verified 08/20/18 20:40) formoterol fumarate [From Symbicort] Allergy (Verified 08/20/18 20:40) sulfacetamide sodium [From Sulfamide] Allergy (Verified 08/20/18 20:40) HOME MEDICATIONS: Home Medications Medication Instructions Recorded Atorvastatin Ca [Lipitor] 40 mg PO HS tablet 11/12/15 Metoprolol Succinate [Toprol XL -] 50 mg PO DAILY tab.sr.24h 11/12/15 Ranitidine [Zantac -] 150 mg PO BID tablet 11/12/15 metFORMIN HCL [Glucophage -] 500 mg PO BIDI tablet 11/12/15 Apixaban [Eliquis] 5 mg PO BID 12/22/15 Diltiazem Cd [Cardizem Cd -] 360 mg PO DAILY #60 cap.cd.24h 03/25/16 Furosemide [Lasix -] 40 mg PO DAILY 10/06/16 Aspirin Coated [Ecotrin -] 81 mg PO DAILY tablet.ec 05/22/17 REVIEW OF SYSTEMS CONSTITUTIONAL: Absent: fever, chills, diaphoresis, generalized weakness, malaise, loss of appetite, weight change HEENT: Absent: rhinorrhea, nasal congestion, throat pain, throat swelling, difficulty swallowing, mouth swelling, ear pain, eye pain, visual changes CARDIOVASCULAR: Absent: chest pain, syncope, palpitations, irregular heart rate, lightheadedness , peripheral edema RESPIRATORY: Absent: cough, shortness of breath, dyspnea with exertion, orthopnea, wheezing, stridor, hemoptysis GASTROINTESTINAL: Absent: abdominal pain, abdominal distension, nausea, vomiting, diarrhea, constipation, melena, hematochezia GENITOURINARY: Absent: dysuria, frequency, urgency, hesitancy, hematuria, flank pain, genital pain MUSCULOSKELETAL: Absent: myalgia, arthralgia, joint swelling, back pain, neck pain SKIN: Absent: rash, itching, pallor HEMATOLOGIC/IMMUNOLOGIC: Absent: easy bleeding, easy bruising, lymphadenopathy, frequent infections ENDOCRINE: Absent: unexplained weight gain, unexplained weight loss, heat intolerance, cold intolerance NEUROLOGIC: Absent: headache, focal weakness or paresthesias, dizziness, unsteady gait, seizure, mental status changes, bladder or bowel incontinence PSYCHIATRIC: Absent: anxiety, depression, suicidal or homicidal ideation, hallucinations. PHYSICAL EXAMINATION Vital Signs - 24 hr 12/01/18 12/01/18 12/02/18 20:08 23:12 01:45 Temperature 98.6 F 98.2 F Pulse Rate 65 Pulse Rate [ 64 Left Radial] Respiratory 18 20 Rate Blood Pressure 197/85 H Blood Pressure 183/61 H [Right Arm] O2 Sat by Pulse 97 97 97 Oximetry (%) 12/02/18 04:46 Temperature 98.3 F Pulse Rate Pulse Rate [ 59 L Left Radial] Respiratory 20 Rate Blood Pressure Blood Pressure 179/85 H [Right Arm] O2 Sat by Pulse 95 Oximetry (%) GENERAL: Awake, alert, and fully oriented, in no acute distress. HEAD: Normal with no signs of trauma. EYES: Pupils equal, round and reactive to light, extraocular movements intact EARS, NOSE, THROAT: nares patent, oropharynx clear without exudates. dry mucous membranes. NECK: Normal range of motion, supple without lymphadenopathy LUNGS: Breath sounds equal, clear to auscultation bilaterally. No wheezes, and no crackles. HEART: Regular rate and rhythm, normal S1 and S2 without murmur, rub or gallop. ABDOMEN: Soft, nontender, not distended, normoactive bowel sounds, no guarding, no rebound, no masses. MUSCULOSKELETAL: No CVA tenderness. mild swelling of left foot compared to right UPPER EXTREMITIES: 2+ pulses, warm, well-perfused. No cyanosis. No clubbing. No peripheral edema. LOWER EXTREMITIES: 2+ pulse on LLE, 1+ pulse of RLE, warm, well-perfused. No calf tenderness. No peripheral edema. NEUROLOGICAL: Cranial nerves II-XII intact. Normal speech. 5/5 strength in upper and lower extremities PSYCHIATRIC: Cooperative. Good eye contact. Appropriate mood and affect. SKIN: Warm, dry, normal turgor, no rashes or lesions noted, normal capillary refill. Laboratory Results - last 24 hr 12/01/18 12/01/18 12/01/18 21:10 21:10 21:10 WBC 5.3 RBC 4.81 Hgb 14.6 Hct 43.7 MCV 90.8 MCH 30.4 MCHC 33.5 RDW 15.2 Plt Count 214 D MPV 7.7 Absolute Neuts (auto) 3.0 Neutrophils % 57.0 Lymphocytes % 30.0 D Monocytes % 9.0 Eosinophils % 3.2 Basophils % 0.8 Nucleated RBC % 0 PT with INR 12.60 INR 1.07 PTT (Actin FS) 34.9 Sodium 140 Potassium 4.0 Chloride 104 Carbon Dioxide 28 Anion Gap 7 L BUN 20.8 H Creatinine 1.0 Est GFR (CKD-EPI)AfAm 64.27 Est GFR (CKD-EPI)NonAf 55.45 Random Glucose 192 H Calcium 8.9 Total Bilirubin 0.4 AST 10 L ALT 23 Alkaline Phosphatase 75 Total Protein 6.6 Albumin 3.2 L ASSESSMENT/PLAN: 73 y/o/f with PMHx of CAD s/p stent (x1 2008), COPD, CHF, thoracic aortic aneurysm s/p repair, cerebral aneurysm s/p clipping, NIDDM, HTN, Afib (on Eliquis), and morbid obesity here for pain in her left toes. 1) Arterial Occlusion - CTA runoff with evidence of occluded Right anterior tibial artery w/ diminished flow in the right dorsal pedis artery -palpable pulse in RLE, extremity is warm and well perfused -Vascular Surgery consulted 2) Anticoagulation -Cardiology consulted to comment on efficacy of Eliquis anticoagulation on this patient 3)HTN -Metoprolol 50mg given once, continue home meds after med rec 4)Porcelain gallbladder - noted on CTA as incidental finding -consider outpatient elective surgery for removal as patient is not currently a good surgical candidate 5)Prophylaxis -Heparin 6)Disposition -admitted to med/surg Visit type - Emergency Visit Emergency Visit: Yes ED Registration Date: 12/02/18 Care time: The patient presented to the Emergency Department on the above date and was hospitalized for further evaluation of their emergent condition. - New Patient This patient is new to me today: Yes Date on this admission: 12/02/18 - Critical Care Critical Care patient: No ATTENDING PHYSICIAN STATEMENT I saw and evaluated the patient. I reviewed the resident's note and discussed the case with the resident. I agree with the resident's findings and plan as documented. SUBJECTIVE: OBJECTIVE: ASSESSMENT AND PLAN:
[2018-12-02] MEDS ORDERED: HEPARIN NA (PORCINE) 5,000 UNITS/ML 1ML VIAL SQ SCH (07:00)
[2018-12-02] MEDS ORDERED: HEPARIN NA (PORCINE) 5,000 UNITS/ML 1ML VIAL ONE (07:39)
[2018-12-02] MEDS ORDERED: HEPARIN NA (PORCINE) 5,000 UNITS/ML 1ML VIAL IVPUSH PRN ×2 (08:50)
[2018-12-02] MEDS ORDERED: HEPARIN SOD,PORK IN 0.45% NACL 25,000 UNITS/500 ML INFUS.BAG IVPB SCH (09:00)
--- NOTE | 2018-12-02 09:23 | CONSULT ---
- Consultation REQUESTING PROVIDER: CONSULT REQUEST: We have been asked to surgically evaluate this patient for painful Left foot/cold leg. PCP:Edgardo Murphy MD HISTORY OF PRESENT ILLNESS: 73 y/o/f w/ PMHx CAD s/p stent (x1 2008), COPD, CHF, ?thoracic aortic aneurysm s /p repair, cerebral aneurysm s/p clipping, NIDDM, HTN, Afib (on Eliquis), and morbid obesity presents to ED with pain and swelling in her left foot. Pt reports pain began on Thursday afternoon while she was watching TV. Denies any precipitating trauma. Pain is located over the dorsum of the forefoot and toes. Denies any motor/sensory deficits. Denies h/o vascular disease, peripheral stents, claudication/rest pain, prior evaluation by a vascular surgeon, h/o arterial occlusions. Pt has a distant h/o tobacco use (social smoking 40 years ago). Is unaware of thoracic aneurysm noted in EMR. At baseline pt lives home with daughter and nephew. Ambulates with walker, is limited by COPD. Is able to perform all ADLS. PMHx: as above PSHx: as above Home Medications Medication Instructions Recorded Atorvastatin Ca [Lipitor] 40 mg PO HS tablet 11/12/15 Metoprolol Succinate [Toprol XL -] 50 mg PO DAILY tab.sr.24h 11/12/15 Ranitidine [Zantac -] 150 mg PO BID tablet 11/12/15 metFORMIN HCL [Glucophage -] 500 mg PO BIDI tablet 11/12/15 Apixaban [Eliquis] 5 mg PO BID 12/22/15 Diltiazem Cd [Cardizem Cd -] 360 mg PO DAILY #60 cap.cd.24h 03/25/16 Furosemide [Lasix -] 40 mg PO DAILY 10/06/16 Aspirin Coated [Ecotrin -] 81 mg PO DAILY tablet.ec 05/22/17 Allergies Allergy/AdvReac Type Severity Reaction Status Date / Time pregabalin [From Lyrica] Allergy Intermediate Verified 12/02/18 08:08 budesonide [From Symbicort] Allergy Verified 12/02/18 08:08 celecoxib [From Celebrex] Allergy Verified 12/02/18 08:08 formoterol fumarate Allergy Verified 12/02/18 08:08 [From Symbicort] sulfacetamide sodium Allergy Verified 12/02/18 08:08 [From Sulfamide] REVIEW OF SYSTEMS: CONSTITUTIONAL: Absent: fever, chills CARDIOVASCULAR: Absent: chest pain, syncope RESPIRATORY: Absent: cough, shortness of breath GASTROINTESTINAL: Absent: abdominal pain PHYSICAL EXAM: GENERAL: Awake, alert, and fully oriented, in no acute distress. HEAD: Normal with no signs of trauma. LOWER EXTREMITIES: Feet unkept, B/L dorsal aspects of feet with significant dirt. Toes slightly cool to touch but equal bilaterally. dorsiflexion/plantar flexion 5/5 b/l. SILT b/l. Trace edema b/l. Vasc: Palpable dp/pt L, R with biphasic pt, monophasic dp signals. Vital Signs Temperature 98.2 F 12/02/18 07:43 Pulse Rate 68 12/02/18 07:43 Respiratory Rate 19 12/02/18 07:43 Blood Pressure 157/95 12/02/18 07:43 O2 Sat by Pulse Oximetry (%) 97 12/02/18 07:43 Lab Results WBC 5.3 K/mm3 (4.0-10.0) 12/01/18 21:10 RBC 4.81 M/mm3 (3.60-5.2) 12/01/18 21:10 Hgb 14.6 GM/dL (10.7-15.3) 12/01/18 21:10 Hct 43.7 % (32.4-45.2) 12/01/18 21:10 MCV 90.8 fl (80-96) 12/01/18 21:10 MCHC 33.5 g/dl (32.0-36.0) 12/01/18 21:10 RDW 15.2 % (11.6-15.6) 12/01/18 21:10 Plt Count 214 K/MM3 (134-434) D 12/01/18 21:10 Sodium 140 mmol/L (136-145) 12/01/18 21:10 Potassium 4.0 mmol/L (3.5-5.1) 12/01/18 21:10 Chloride 104 mmol/L (98-107) 12/01/18 21:10 Carbon Dioxide 28 mmol/L (21-32) 12/01/18 21:10 Anion Gap 7 MMOL/L (8-16) L 12/01/18 21:10 BUN 20.8 mg/dL (7-18) H 12/01/18 21:10 Creatinine 1.0 mg/dL (0.55-1.3) 12/01/18 21:10 Random Glucose 192 mg/dL (74-106) H 12/01/18 21:10 Calcium 8.9 mg/dL (8.5-10.1) 12/01/18 21:10 INR 1.07 (0.83-1.09) 12/01/18 21:10 A/P: 73 y/o/f w/ PMHx CAD s/p stent (x1 2008), COPD, CHF, ?thoracic aortic aneurysm s/p repair, cerebral aneurysm s/p clipping, NIDDM, HTN, Afib (on Eliquis), and morbid obesity presents to ED with pain and swelling in her left foot. CTA with RIGHT BRIANNE occlusion-no sxs in R foot, occlusion possibly chronic in nature LLE with palpable dp/pt -No acute vascular intervention at this time -F/u official CTA report -Dr Barlow will evaluate pt this am -Continue ASA/Eliquis -Recommend general surgery consult-porcelain gallbladder on images d/w attending Dr Barlow
--- NOTE | 2018-12-02 09:30 | PN ---
Progress Note (short form) - Note Progress Note: HPI: Pt has resolution of her foot pain and edema. She reports this has never happened before and she has a remote smoking history. She denies any fever/ chills, shortness of breath, chest pain, palpitations, abdominal pain. PE: GEN: NAD, awake, alert, oriented x3 HEENT: Nc/AT, EOMI, RICCI, sclera anicteric Neck: No JVD LUNGS: CTA b/l no wheezes. No accessory muscle use CARD: RRR no murmurs appreciated EXT: No calf tenderness. No edema. No erythema appreciated. 1+ DP pulse in R foot with 2+ DP pulse in L foot, however both fee are warm Active Medications Aspirin (Ecotrin -) 81 mg PO DAILY [facility] Last Admin: 12/02/18 11:47 Dose: 81 mg Atorvastatin Calcium (Lipitor -) 40 mg PO HS [facility] Diltiazem HCl (Cardizem Cd -) 360 mg PO DAILY [facility] Last Admin: 12/02/18 11:47 Dose: Not Given Heparin Sodium (Porcine) (Heparin -) 1,000 unit IVPUSH PRN PRN PRN Reason: Heparin Heparin Sodium (Porcine) (Heparin -) 5,000 unit IVPUSH PRN PRN PRN Reason: Heparin HEPARIN SOD,PORK IN 0.45% NACL (Heparin-1/2ns 25,000 Units/500) 25,000 units in 500 mls @ 20 mls/hr IVPB TITR [facility]; Protocol Last Admin: 12/02/18 10:39 Dose: 1,000 units/hr, 20 mls/hr Metoprolol Succinate (Toprol Xl -) 50 mg PO DAILY [facility] Last Admin: 12/02/18 11:47 Dose: Not Given Ranitidine HCl (Zantac -) 150 mg PO BID [facility] Last Admin: 12/02/18 11:47 Dose: 150 mg A/P Intermittent L foot pain and edema R posterior tibial artery occlusion Porcelain bladder CAD s/p PCI COPD CHF Type 2 DM HTN Atrial fibrillation Morbid obesity --Vascular surgery consulted for thrombus --Heparin gtt initiated in interim --ASA 81mg qdaily to continue --Cardizem 360mg qdaily to continue --Afib currently rate controlled --Physical therapy evaluation pending FEN: Fluids: PO Electrolyte abnormalities: None Nutrition: Diabetic sodium controlled PPX: DVT - already on heparin gtt initiation GI - Already on Zantac BID Dispo: Continue monitoring on telemetry Discussed with Dr. Jeffrey Hdz, DO - IM PGY-3
[2018-12-02 10:56] LABS: HEMATOCRIT 45.6 % (32.4-45.2); HEMOGLOBIN 15.4 GM/dL (10.7-15.3); MCH 30.6 pg (25.7-33.7); MCHC 33.7 g/dl (32.0-36.0); MEAN CELL VOLUME 90.8 fl (80-96); MEAN PLT VOLUME 7.9 fl (7.5-11.1); PLATELET COUNT 232 K/MM3 (134-434); RBC 5.03 M/mm3 (3.60-5.2)
[2018-12-02 11:15] LABS: ALBUMIN 3.5 g/dl (3.4-5.0); BILIRUBIN,TOTAL 0.7 mg/dL (0.2-1); BLOOD UREA NITROGEN 19.2 mg/dL (7-18); CALCIUM 9.1 mg/dL (8.5-10.1); TOT PROT 7.1 g/dl (6.4-8.2)
[2018-12-02] MEDS: RANITIDINE HCL 150 MG TABLET (FP) PO SCH ×2 (11:47→22:23)
[2018-12-02] MEDS: ASPIRIN COATED 81 MG TABLET.EC PO SCH (11:47)
--- NOTE | 2018-12-02 12:56 | CON.CARD ---
Consult Consult Specialty:: cardiology Reason for Consultation:: left toe swelling and pain - History of Present Illness Chief Complaint: Pt A&Ox3; siitting up at bedside. c/o bilateral leg swelling, left foot pain; no dyspnea or chest pain. History of Present Illness: 73 yo white woman with PMH CAD/CO s/p stent x1 2009, COPD, diastolic CHF, thoracic aortic aneurysm s/p repair, cerebral aneurysm s/p clipping, NIDDM, HTN , Afib and PSVT (on Eliquis; on diltiazem and metoprolol), and morbid obesity, presenting with L toe pain. Said that "out of nowhere", her three lateral L toes turned blue and were acutely painful, starting about 2 hours ago. However, the pain and color change have since resolved. Currently, her only complaint is that "my left toes seem swollen compared to my right toes". Denies CP, SOB, cough, N/V, abd pain, constipation/diarrhea, fevers/chills. Pt has an implanted loop recorder (followed for arrhythmia by Dr. Vitaly Hanna, EP at [facility]). - History Source History Provided By: Patient, Medical Record Limitations to Obtaining History: No Limitations - Past Medical History Cardio/Vascular: Yes: AFIB, CAD, CHF, HTN, Hyperlipdemia, Other (PSVT in 2011) Pulmonary: Yes: COPD, Sleep Apnea (risks for FRANSISCA) Renal/: Yes: Renal Inusuff Reproductive: Yes: Postmenopausal ...: No Psych: Yes: Anxiety Endocrine: Yes: Diabetes Mellitus Additional Medical History: Condition Date Treating Physician Comments. ASHD promus stent pLAD 2008. CHF diastolic. DM. GERD. HHD. HTN. Hyperlipidemia. Morbid obesity. Negative MIBI ST September 2011 And May 2013. SVT - Past Surgical History Past Surgical History: Yes: Stent - Alcohol/Substance Use Hx Alcohol Use: No - Smoking History Smoking history: Never smoked Have you smoked in the past 12 months: No Aproximately how many cigarettes per day: 0 If you are a former smoker, when did you quit?: 1969 - Social History Usual Living Arrangement: Other (with nephew; her daughter is close to her) History of Recent Travel: No Home Medications - Allergies Allergies/Adverse Reactions: Allergies Allergy/AdvReac Type Severity Reaction Status Date / Time pregabalin [From Lyrica] Allergy Intermediate Verified 12/02/18 08:08 budesonide [From Symbicort] Allergy Verified 12/02/18 08:08 celecoxib [From Celebrex] Allergy Verified 12/02/18 08:08 formoterol fumarate Allergy Verified 12/02/18 08:08 [From Symbicort] sulfacetamide sodium Allergy Verified 12/02/18 08:08 [From Sulfamide] - Home Medications Home Medications: Ambulatory Orders Atorvastatin Ca [Lipitor] 40 mg PO HS tablet 11/12/15 Metoprolol Succinate [Toprol XL -] 50 mg PO DAILY tab.sr.24h 11/12/15 Ranitidine [Zantac -] 150 mg PO BID tablet 11/12/15 metFORMIN HCL [Glucophage -] 500 mg PO BIDI tablet 11/12/15 Apixaban [Eliquis] 5 mg PO BID 12/22/15 Diltiazem Cd [Cardizem Cd -] 360 mg PO DAILY #60 cap.cd.24h 03/25/16 Furosemide [Lasix -] 40 mg PO DAILY 10/06/16 Aspirin Coated [Ecotrin -] 81 mg PO DAILY tablet.ec 05/22/17 Family Medical History Family History: Denies Review of Systems - Review of Systems Constitutional: reports: No Symptoms Eyes: reports: No Symptoms HENT: reports: No Symptoms Neck: reports: No Symptoms Cardiovascular: reports: No Symptoms Respiratory: reports: No Symptoms Gastrointestinal: reports: No Symptoms Genitourinary: reports: No Symptoms Breasts: reports: No Symptoms Reported Musculoskeletal: reports: Joint Swelling, Muscle Weakness Integumentary: reports: Bruising Neurological: reports: Weakness Endocrine: reports: No Symptoms Hematology/Lymphatic: reports: No Symptoms Psychiatric: reports: No Symptoms - Risk Factors Known Risk Factors: Yes: Age, Diabetes Mellitus Vital Signs: Vital Signs Temperature 98.2 F 12/02/18 07:43 Pulse Rate 68 12/02/18 07:43 Respiratory Rate 12/02/18 07:43 Blood Pressure 157/95 12/02/18 07:43 O2 Sat by Pulse Oximetry (%) 97 12/02/18 07:43 Constitutional: Yes: Anxious, Obese Eyes: Yes: WNL HENT: Yes: WNL Neck: Yes: WNL Respiratory: Yes: WNL Gastrointestinal: Yes: Soft, Abdomen, Obese Renal/: No: Anuria Cardiovascular: Yes: WNL JVD: No Carotid Bruit: No PMI: Non-Displaced Heart Sounds: Yes: S1, S2, S4 Murmur: Yes: Systolic Murmur, Grade 1 Musculoskeletal: Yes: Joint Stiffness, Joint Swelling, Muscle Pain, Muscle Weakness Extremities: Yes: Cool Edema: Yes Edema: LLE: Trace Peripheral Pulses WNL: Yes Integumentary: Yes: Bruising (left toes) Neurological: Yes: WNL Psychiatric: Yes: Alert, Oriented - Other Data Labs, Other Data: CBC, BMP 12/02/18 09:58 12/02/18 07:00 INR, PTT INR 1.07 (0.83-1.09) 12/01/18 21:10 Abnormal Lab Results 12/02/18 12/02/18 12/03/18 07:00 09:58 05:54 Hgb 15.4 H Hct 45.6 H BUN 19.2 H Random Glucose 219 H AST 9 L B-Natriuretic Peptide 1190.2 H Total LDL Cholesterol 110 H Echo: Report Reviewed Ejection Fraction %: LVEF > or = 40 % Imaging - Results Chest X-ray: Image Reviewed EKG: Image Reviewed (NSR; sinus arrhythmia; ?old septal CO) Problem List - Problems (1) Anxiety and depression Code(s): F41.8 - OTHER SPECIFIED ANXIETY DISORDERS (2) Coronary artery disease Code(s): I25.10 - ATHSCL HEART DISEASE OF [place] CORONARY ARTERY W/O ANG PCTRS (3) [place] cardiac risk >20% in next 10 years Assessment/Plan: Coronary angiogram 05/2017: RCA DEStents (proximal and mid). Work on modifiable risk factors is mast. Code(s): Z91.89 - OTH PERSONAL RISK FACTORS, NOT ELSEWHERE CLASSIFIED (4) History of cardioversion Assessment/Plan: followed for PAF and PSVT. Has implanted loop recorder. Code(s): Z98.890 - OTHER SPECIFIED POSTPROCEDURAL STATES (5) History of heart artery stent Code(s): Z95.5 - PRESENCE OF CORONARY ANGIOPLASTY IMPLANT AND GRAFT (6) Morbid obesity Assessment/Plan: The paramount need to change eating habits, with better food choices, portion control, and exercise, needs detailed discussion and work. Code(s): E66.01 - MORBID (SEVERE) OBESITY DUE TO EXCESS CALORIES (7) Diabetes Code(s): E11.9 - TYPE 2 DIABETES MELLITUS WITHOUT COMPLICATIONS Qualifiers: (8) Hyperlipidemia Assessment/Plan: LDL >100 mg/dl. Increase statin dose, while paying close attention to liver (hx enlarged, fatty liver). Code(s): E78.5 - HYPERLIPIDEMIA, UNSPECIFIED (9) Paroxysmal SVT (supraventricular tachycardia) Code(s): I47.1 - SUPRAVENTRICULAR TACHYCARDIA (10) Paroxysmal atrial fibrillation Assessment/Plan: On metoprolol ER and diltiazem CD. On apixaban for anticoagulation. Code(s): I48.0 - PAROXYSMAL ATRIAL FIBRILLATION (11) Diastolic CHF Assessment/Plan: Stable presently. On metoprolol and diltiazem. F/u BNP, Is and Os, daily weight, BUN/Cr, electrolytes. Code(s): I50.30 - UNSPECIFIED DIASTOLIC (CONGESTIVE) HEART FAILURE (12) History of CO (myocardial infarction) Code(s): I25.2 - OLD MYOCARDIAL INFARCTION (13) Swelling of toe of left foot Assessment/Plan: F/u circulatory workup in progress. Code(s): M79.89 - OTHER SPECIFIED SOFT TISSUE DISORDERS (14) Fatty liver Code(s): K76.0 - FATTY (CHANGE OF) LIVER, NOT ELSEWHERE CLASSIFIED (15) Porcelain gallbladder Code(s): K82.8 - OTHER SPECIFIED DISEASES OF GALLBLADDER (16) COPD (chronic obstructive pulmonary disease) Code(s): J44.9 - CHRONIC OBSTRUCTIVE PULMONARY DISEASE, UNSPECIFIED
--- NOTE | 2018-12-02 14:09 | EKG ---
Test Reason : Blood Pressure : / mmHG Vent. Rate : 061 BPM Atrial Rate : 061 BPM P-R Int : 152 ms QRS Dur : 086 ms QT Int : 462 ms P-R-T Axes : 031 -17 110 degrees QTc Int : 465 ms NORMAL SINUS RHYTHM WITH SINUS ARRHYTHMIA MODERATE VOLTAGE CRITERIA FOR LVH, MAY BE NORMAL VARIANT CANNOT RULE OUT SEPTAL INFARCT , AGE UNDETERMINED ABNORMAL ECG WHEN COMPARED WITH ECG OF 20-AUG-2018 20:29, PREMATURE SUPRAVENTRICULAR COMPLEXES ARE NO LONGER PRESENT Confirmed by AL WAYNE MD ([id number]) on 12/02/2018 2:09:01 PM Referred By: Confirmed By:AL WAYNE MD
--- NOTE | 2018-12-02 17:47 | PN ---
Teaching Attending Note Name of Resident: Ramses Hdz ATTENDING PHYSICIAN STATEMENT I saw and evaluated the patient. I reviewed the resident's note and discussed the case with the resident. I agree with the resident's findings and plan as documented with exceptions below. SUBJECTIVE: Patient seen and examined. Denies any foot pain, swelling, redness or concerns. Reports left foot color change with pain and swelling yesterday that is improved now. OBJECTIVE: Vital Signs Period Temp Pulse Resp BP Sys/Bowen Pulse Ox Last 24 Hr 98.2 F-98.6 F 59-68 18-20 157-197/61-95 95-97 Intake & Output 11/29/18 11/30/18 12/01/18 12/02/18 23:59 23:59 23:59 23:59 Weight 279 lb General: lying in bed in no acute distress, morbidly obese, BMI 49.4 Neck: soft, supple Chest: limited by body habitus, no rales or wheezing Abdomen: soft, obese, NT Extremities: strong DP pulses Left foot, Weaker but palpable DP pulse right foot , good capillary refill, Home Medications Medication Instructions Recorded Atorvastatin Ca [Lipitor] 40 mg PO HS tablet 11/12/15 Metoprolol Succinate [Toprol XL -] 50 mg PO DAILY tab.sr.24h 11/12/15 Ranitidine [Zantac -] 150 mg PO BID tablet 11/12/15 metFORMIN HCL [Glucophage -] 500 mg PO BIDI tablet 11/12/15 Apixaban [Eliquis] 5 mg PO BID 12/22/15 Diltiazem Cd [Cardizem Cd -] 360 mg PO DAILY #60 cap.cd.24h 03/25/16 Furosemide [Lasix -] 40 mg PO DAILY 10/06/16 Aspirin Coated [Ecotrin -] 81 mg PO DAILY tablet.ec 05/22/17 Active Medications Aspirin (Ecotrin -) 81 mg PO DAILY [facility] Last Admin: 12/02/18 11:47 Dose: 81 mg Atorvastatin Calcium (Lipitor -) 40 mg PO HS [facility] Diltiazem HCl (Cardizem Cd -) 360 mg PO DAILY [facility] Last Admin: 12/02/18 11:47 Dose: Not Given Heparin Sodium (Porcine) (Heparin -) 1,000 unit IVPUSH PRN PRN PRN Reason: Heparin Heparin Sodium (Porcine) (Heparin -) 5,000 unit IVPUSH PRN PRN PRN Reason: Heparin HEPARIN SOD,PORK IN 0.45% NACL (Heparin-1/2ns 25,000 Units/500) 25,000 units in 500 mls @ 20 mls/hr IVPB TITR [facility]; Protocol Last Admin: 12/02/18 10:39 Dose: 1,000 units/hr, 20 mls/hr Metoprolol Succinate (Toprol Xl -) 50 mg PO DAILY [facility] Last Admin: 12/02/18 11:47 Dose: Not Given Ranitidine HCl (Zantac -) 150 mg PO BID [facility] Last Admin: 12/02/18 11:47 Dose: 150 mg Laboratory Results - last 24 hr 12/01/18 12/01/18 12/01/18 21:10 21:10 21:10 WBC 5.3 RBC 4.81 Hgb 14.6 Hct 43.7 MCV 90.8 MCH 30.4 MCHC 33.5 RDW 15.2 Plt Count 214 D MPV 7.7 Absolute Neuts (auto) 3.0 Neutrophils % 57.0 Lymphocytes % 30.0 D Monocytes % 9.0 Eosinophils % 3.2 Basophils % 0.8 Nucleated RBC % 0 PT with INR 12.60 INR 1.07 PTT (Actin FS) 34.9 Sodium 140 Potassium 4.0 Chloride 104 Carbon Dioxide 28 Anion Gap 7 L BUN 20.8 H Creatinine 1.0 Est GFR (CKD-EPI)AfAm 64.27 Est GFR (CKD-EPI)NonAf 55.45 Random Glucose 192 H Calcium 8.9 Total Bilirubin 0.4 AST 10 L ALT 23 Alkaline Phosphatase 75 Total Protein 6.6 Albumin 3.2 L Triglycerides Cholesterol Total LDL Cholesterol HDL Cholesterol 12/02/18 12/02/18 07:00 09:58 WBC 7.0 RBC 5.03 Hgb 15.4 H Hct 45.6 H MCV 90.8 MCH 30.6 MCHC 33.7 RDW 15.0 Plt Count 232 MPV 7.9 Absolute Neuts (auto) Neutrophils % Lymphocytes % Monocytes % Eosinophils % Basophils % Nucleated RBC % PT with INR INR PTT (Actin FS) Sodium 137 Potassium 4.0 Chloride 103 Carbon Dioxide 24 Anion Gap 10 BUN 19.2 H Creatinine 1.0 Est GFR (CKD-EPI)AfAm 64.27 Est GFR (CKD-EPI)NonAf 55.45 Random Glucose 219 H Calcium 9.1 Total Bilirubin 0.7 AST 9 L ALT 23 Alkaline Phosphatase 80 Total Protein 7.1 Albumin 3.5 Triglycerides 133 Cholesterol 181 Total LDL Cholesterol 110 H HDL Cholesterol 51 CTA with aorta runoff results reviewed ASSESSMENT AND PLAN: 73 yof with PMHx of CAD s/p stent (x1 in 2008), COPD, CHF, Thoracic aortic aneurysm s/p repair, Cerebral aneurysm s/p clipping, NIDDM, HTN, Afib (on Eliquis), and Morbid obesity admitted with sudden onset transient left foot discoloration, pain, swelling -Transient left foot pain/swelling/redness -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 Occlusion suspected chronic, patient with collaterals. Dc heparin drip. Resume eliquis. Cardiology input. Metoprolol/cardizem/ASA/statin Surgery input for porcelain gall bladder, Outpatient follow up. LFTs normal, no abdominal symptoms. PT eval dc in 24hours if no concerns. discussed with patients and nursing.
[2018-12-02 20:46] LABS: INR 1.06 (0.83-1.09); PROTHROMBIN TIME (PATIENT) 12.5 SEC (9.7-13.0)
[2018-12-02 20:49] LABS: ACTIVATED PTT 34.9 SECONDS (25.2-36.5)
[2018-12-02] MEDS ORDERED: ATORVASTATIN CA 40 MG TABLET (FP) PO SCH (22:00)
[2018-12-02] MEDS: INSULIN SLIDING SCALE (NOVOLOG) 1 VIAL SQ SCH (22:23)
[2018-12-02] MEDS: APIXABAN 5 MG TABLET PO SCH (22:23)
[2018-12-03] MEDS: INSULIN SLIDING SCALE (NOVOLOG) 1 VIAL SQ SCH ×3 (06:15→17:33)
[2018-12-03] MEDS ORDERED: PT OWN MED DRAWER 7, Y5N ONE (09:34)
[2018-12-03] MEDS: RANITIDINE HCL 150 MG TABLET (FP) PO SCH (09:35)
[2018-12-03] MEDS: APIXABAN 5 MG TABLET PO SCH (09:36)
[2018-12-03] MEDS: ASPIRIN COATED 81 MG TABLET.EC PO SCH (09:36)
[2018-12-03] MEDS ORDERED: LISINOPRIL 5 MG TABLET (FP) PO SCH (10:00)
--- NOTE | 2018-12-03 10:35 | CONSULT ---
- Consultation REQUESTING PROVIDER: Jeffrey DAVIS CONSULT REQUEST: We have been asked to surgically evaluate this patient for ( specify). PCP:Edgardo Murphy MD HISTORY OF PRESENT ILLNESS:KIEL who is a 73 y/o white female who was incidentally found to have a porcelain gallbladder on imaging during admission w /u for possible symptomatic arterial PVD. She has CAD/CT s/p stent x1 2009, COPD , diastolic CHF, thoracic aortic aneurysm s/p repair, cerebral aneurysm s/p clipping, NIDDM, HTN, Afib and PSVT (on Eliquis; on diltiazem and metoprolol). She has no GI//[employer] c/o's; the finding of the porcelain gallbladder is relatively new and not seen on previous gallbladder imaging. She denies dark urine and light stools. PMHx: as in HPI PSHx: none Home Medications Medication Instructions Recorded Atorvastatin Ca [Lipitor] 40 mg PO HS tablet 11/12/15 Metoprolol Succinate [Toprol XL -] 50 mg PO DAILY tab.sr.24h 11/12/15 Ranitidine [Zantac -] 150 mg PO BID tablet 11/12/15 metFORMIN HCL [Glucophage -] 500 mg PO BIDI tablet 11/12/15 Apixaban [Eliquis] 5 mg PO BID 12/22/15 Diltiazem Cd [Cardizem Cd -] 360 mg PO DAILY #60 cap.cd.24h 03/25/16 Furosemide [Lasix -] 40 mg PO DAILY 10/06/16 Aspirin Coated [Ecotrin -] 81 mg PO DAILY tablet.ec 05/22/17 Allergies Allergy/AdvReac Type Severity Reaction Status Date / Time pregabalin [From Lyrica] Allergy Intermediate Verified 12/02/18 08:08 budesonide [From Symbicort] Allergy Verified 12/02/18 08:08 celecoxib [From Celebrex] Allergy Verified 12/02/18 08:08 formoterol fumarate Allergy Verified 12/02/18 08:08 [From Symbicort] sulfacetamide sodium Allergy Verified 12/02/18 08:08 [From Sulfamide] PHYSICAL EXAM: GENERAL: Awake, alert, and fully oriented, in no acute distress. HEAD: Normal with no signs of trauma. EYES: sclera anicteric, conjunctiva clear. NECK: Normal ROM, supple without lymphadenopathy, JVD, or masses. ABDOMEN: Soft, obese, nontender, not distended, normoactive bowel sounds, no guarding, no rebound, no masses. No organomegaly. No hernias MUSCULOSKELETAL: Normal ROM at all joints. No bony deformities or tenderness. No CVA tenderness. UPPER EXTREMITIES: 2+ pulses, warm, well-perfused. No cyanosis. Cap refill <2 seconds. No peripheral edema. LOWER EXTREMITIES: Feet unkept, B/L dorsal aspects of feet with significant dirt. Toes slightly cool to touch but equal bilaterally. dorsiflexion/plantar flexion 5/5 b/l. SILT b/l. Trace edema b/l. Vasc: Palpable dp/pt L, R with biphasic pt, monophasic dp signals. NEUROLOGICAL: Normal speech, gait not observed. PSYCH: Cooperative. Good eye contact. Appropriate mood and affect. SKIN: Warm, dry, normal turgor, no rashes or lesions noted. Vital Signs Temperature 97.5 F L 12/03/18 10:00 Pulse Rate 63 12/03/18 10:00 Respiratory Rate 18 12/03/18 10:00 Blood Pressure 161/76 12/03/18 10:00 O2 Sat by Pulse Oximetry (%) 97 12/03/18 09:00 Lab Results WBC 7.0 K/mm3 (4.0-10.0) 12/02/18 09:58 RBC 5.03 M/mm3 (3.60-5.2) 12/02/18 09:58 Hgb 15.4 GM/dL (10.7-15.3) H 12/02/18 09:58 Hct 45.6 % (32.4-45.2) H 12/02/18 09:58 MCV 90.8 fl (80-96) 12/02/18 09:58 MCHC 33.7 g/dl (32.0-36.0) 12/02/18 09:58 RDW 15.0 % (11.6-15.6) 12/02/18 09:58 Plt Count 232 K/MM3 (134-434) 12/02/18 09:58 Sodium 137 mmol/L (136-145) 12/02/18 07:00 Potassium 4.0 mmol/L (3.5-5.1) 12/02/18 07:00 Chloride 103 mmol/L (98-107) 12/02/18 07:00 Carbon Dioxide 24 mmol/L (21-32) 12/02/18 07:00 Anion Gap 10 MMOL/L (8-16) 12/02/18 07:00 BUN 19.2 mg/dL (7-18) H 12/02/18 07:00 Creatinine 1.0 mg/dL (0.55-1.3) 12/02/18 07:00 Random Glucose 219 mg/dL (74-106) H 12/02/18 07:00 Calcium 9.1 mg/dL (8.5-10.1) 12/02/18 07:00 INR 1.06 (0.83-1.09) 12/02/18 20:26 Imaging studies are reviewed IMP: porcelain gallbladder; # medical comorbid conditions and arterial PVD. PLAN: Patient should f/u as an outpatient for evaluation for elective possible open lap flaca; we discussed the importance of this and she understands; she will come to the office w/her daughter. Lobo Hernandez MD FACS
--- NOTE | 2018-12-03 11:04 | PN ---
Teaching Attending Note Name of Resident: Ramses Hdz ATTENDING PHYSICIAN STATEMENT I saw and evaluated the patient. I reviewed the resident's note and discussed the case with the resident. I agree with the resident's findings and plan as documented with exceptions below. SUBJECTIVE: Patient seen and examined, Denies full recollection of events in the ED yesterday, currently Ox3, reports polyuria, but no concerns otherwise. OBJECTIVE: Vital Signs Period Temp Pulse Resp BP Sys/Bowen Pulse Ox Last 24 Hr 97.5 F-98.4 F 57-71 18-19 156-161/67-90 97-98 Intake & Output 11/30/18 12/01/18 12/02/18 12/03/18 23:59 23:59 23:59 23:59 Intake Total 120 Balance 120 Weight 279 lb 281 lb 0.2 oz 281 lb 4.8 oz General: sitting in bed, no acute distress, Morbidly obese (BMI 49.8) Neck: soft, supple Chest: limited by body habitus, but no rales or wheezing, pos air entry Abdomen:Soft, obese, NT, no CVA or suprapubic tenderness Extremities: trace left foot edema, unchanged exam, good capillary refill. Home Medications Medication Instructions Recorded Atorvastatin Ca [Lipitor] 40 mg PO HS tablet 11/12/15 Metoprolol Succinate [Toprol XL -] 50 mg PO DAILY tab.sr.24h 11/12/15 Ranitidine [Zantac -] 150 mg PO BID tablet 11/12/15 metFORMIN HCL [Glucophage -] 500 mg PO BIDI tablet 11/12/15 Apixaban [Eliquis] 5 mg PO BID 12/22/15 Diltiazem Cd [Cardizem Cd -] 360 mg PO DAILY #60 cap.cd.24h 03/25/16 Furosemide [Lasix -] 40 mg PO DAILY 10/06/16 Aspirin Coated [Ecotrin -] 81 mg PO DAILY tablet.ec 05/22/17 Active Medications Apixaban (Eliquis -) 5 mg PO BID [facility] Last Admin: 12/03/18 09:36 Dose: 5 mg Aspirin (Ecotrin -) 81 mg PO DAILY [facility] Last Admin: 12/03/18 09:36 Dose: 81 mg Atorvastatin Calcium (Lipitor -) 80 mg PO HS [facility] Diltiazem HCl (Cardizem Cd -) 360 mg PO DAILY [facility] Last Admin: 12/03/18 09:35 Dose: 360 mg Insulin Aspart (Novolog Vial Sliding Scale -) 1 vial SQ ACHS [facility]; Protocol Last Admin: 12/03/18 06:15 Dose: 1 units Lisinopril (Prinivil) 5 mg PO DAILY [facility] Last Admin: 12/03/18 09:35 Dose: 5 mg Metoprolol Succinate (Toprol Xl -) 50 mg PO DAILY [facility] Last Admin: 12/03/18 09:36 Dose: 50 mg Ranitidine HCl (Zantac -) 150 mg PO BID [facility] Last Admin: 12/03/18 09:35 Dose: 150 mg Laboratory Results - last 24 hr 12/02/18 12/02/18 12/02/18 07:00 09:58 20:26 WBC 7.0 RBC 5.03 Hgb 15.4 H Hct 45.6 H MCV 90.8 MCH 30.6 MCHC 33.7 RDW 15.0 Plt Count 232 MPV 7.9 PT with INR 12.50 INR 1.06 PTT (Actin FS) 34.9 Sodium 137 Potassium 4.0 Chloride 103 Carbon Dioxide 24 Anion Gap 10 BUN 19.2 H Creatinine 1.0 Est GFR (CKD-EPI)AfAm 64.27 Est GFR (CKD-EPI)NonAf 55.45 POC Glucometer Random Glucose 219 H Calcium 9.1 Total Bilirubin 0.7 AST 9 L ALT 23 Alkaline Phosphatase 80 B-Natriuretic Peptide Total Protein 7.1 Albumin 3.5 Triglycerides 133 Cholesterol 181 Total LDL Cholesterol 110 H HDL Cholesterol 51 12/02/18 12/03/18 12/03/18 22:22 05:54 06:03 WBC RBC Hgb Hct MCV MCH MCHC RDW Plt Count MPV PT with INR INR PTT (Actin FS) Sodium Potassium Chloride Carbon Dioxide Anion Gap BUN Creatinine Est GFR (CKD-EPI)AfAm Est GFR (CKD-EPI)NonAf POC Glucometer 201 158 Random Glucose Calcium Total Bilirubin AST ALT Alkaline Phosphatase B-Natriuretic Peptide 1190.2 H Total Protein Albumin Triglycerides Cholesterol Total LDL Cholesterol HDL Cholesterol ASSESSMENT AND PLAN: 73 yof with PMHx of CAD s/p stent (x1 in 2008), COPD, CHF, Thoracic aortic aneurysm s/p repair, Cerebral aneurysm s/p clipping, NIDDM, HTN, Afib (on Eliquis), and Morbid obesity admitted with sudden onset transient left foot discoloration, pain, swelling -Transient left foot pain/swelling/redness -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 Vascular surgery input noted. Occlusion suspected chronic, patient with collaterals. Continue ASA/eliquis Cardiology input noted. Resume lasix. Metoprolol/cardizem/ASA/statin Surgery input for porcelain gall bladder noted, Outpatient follow up. LFTs normal, no abdominal symptoms. dc pending urine studies and PT, likely in 24 hours. discussed with patients and nursing.
[2018-12-03] MEDS ORDERED: FUROSEMIDE 40 MG TABLET (FP) PO SCH (11:15)
[2018-12-03 15:15] LABS: URINE APPEARANCE CLEAR; URINE COLOR YELLOW; URINE GLUCOSE (UA) NEGATIVE (NEGATIVE)
[2018-12-03 15:16] LABS: URINE BILIRUBIN NEGATIVE (NEGATIVE); URINE KETONE NEGATIVE (NEGATIVE); URINE LEUK ESTERASE TRACE (NEGATIVE); URINE NITRITE NEGATIVE (NEGATIVE); URINE UROBILINOGEN 0.2 mg/dL (0.2-1.0)
[2018-12-03 15:17] LABS: URINE PROTEIN NEGATIVE (NEGATIVE)
[2018-12-03 15:18] LABS: URINE BACTERIA 247.6 /hpf (NEGATIVE); URINE RBC 0.8 /hpf (0-4); URINE WBC 2.3 /hpf (0-5)
--- NOTE | 2018-12-03 16:11 | DS ---
Physical Exam: SUBJECTIVE: Patient seen and examined OBJECTIVE: Vital Signs Period Temp Pulse Resp BP Sys/Bowen Pulse Ox Last 24 Hr 97.5 F-98.4 F 57-105 18-19 113-161/67-90 97-98 PHYSICAL EXAM GENERAL: The patient is awake, alert, and fully oriented, in no acute distress. HEAD: Normal with no signs of trauma. EYES: PERRL, extraocular movements intact, sclera anicteric, conjunctiva clear. ENT: Ears normal, nares patent, oropharynx clear without exudates, moist mucous membranes. NECK: Trachea midline, full range of motion, supple. LUNGS: Breath sounds equal, clear to auscultation bilaterally, no wheezes, no crackles, no accessory muscle use. HEART: Regular rate and rhythm, S1, S2 without murmur, rub or gallop. ABDOMEN: Soft, nontender, nondistended, normoactive bowel sounds, no guarding, no rebound, no hepatosplenomegaly, no masses. EXTREMITIES: 2+ pulses, warm, well-perfused, no edema. NEUROLOGICAL: Cranial nerves II through XII grossly intact. Normal speech, gait not observed. PSYCH: Normal mood, normal affect. SKIN: Warm, dry, normal turgor, no rashes or lesions noted. LABS Laboratory Results - last 24 hr 12/02/18 12/02/18 12/03/18 20:26 22:22 05:54 PT with INR 12.50 INR 1.06 PTT (Actin FS) 34.9 POC Glucometer 201 B-Natriuretic Peptide 1190.2 H Urine Color Urine Appearance Urine pH Ur Specific [place] Urine Protein Urine Glucose (UA) Urine Ketones Urine Blood Urine Nitrite Urine Bilirubin Urine Urobilinogen Ur Leukocyte Esterase Urine WBC (Auto) Urine RBC (Auto) Urine Casts (Auto) U Epithel Cells (Auto) Urine Bacteria (Auto) 12/03/18 12/03/18 12/03/18 06:03 11:11 12:55 PT with INR INR PTT (Actin FS) POC Glucometer 158 193 B-Natriuretic Peptide Urine Color Yellow Urine Appearance Clear Urine pH 5.0 Ur Specific [place] 1.010 Urine Protein Negative Urine Glucose (UA) Negative Urine Ketones Negative Urine Blood Negative Urine Nitrite Negative Urine Bilirubin Negative Urine Urobilinogen 0.2 Ur Leukocyte Esterase Trace Urine WBC (Auto) 2.3 Urine RBC (Auto) 0.8 Urine Casts (Auto) 1.10 U Epithel Cells (Auto) 2.0 Urine Bacteria (Auto) 247.6 Active Medications Apixaban (Eliquis -) 5 mg PO BID [facility] Last Admin: 12/03/18 09:36 Dose: 5 mg Aspirin (Ecotrin -) 81 mg PO DAILY [facility] Last Admin: 12/03/18 09:36 Dose: 81 mg Atorvastatin Calcium (Lipitor -) 80 mg PO [facility] Diltiazem HCl (Cardizem Cd -) 360 mg PO DAILY [facility] Last Admin: 12/03/18 09:35 Dose: 360 mg Furosemide (Lasix -) 40 mg PO DAILY [facility] Last Admin: 12/03/18 11:09 Dose: 40 mg Insulin Aspart (Novolog Vial Sliding Scale -) 1 vial SQ [facility]; Protocol Last Admin: 12/03/18 11:52 Dose: 1 units Lisinopril (Prinivil) 5 mg PO DAILY [facility] Last Admin: 12/03/18 09:35 Dose: 5 mg Metoprolol Succinate (Toprol Xl -) 50 mg PO DAILY [facility] Last Admin: 12/03/18 09:36 Dose: 50 mg Ranitidine HCl (Zantac -) 150 mg PO BID [facility] Last Admin: 12/03/18 09:35 Dose: 150 mg HOSPITAL COURSE: Date of Admission:12/02/18 Date of Discharge: 12/03/18 Discharge Summary Reason For Visit: OCCLUSION OF ARTERY Current Active Problems Arterial occlusion (Acute) COPD (chronic obstructive pulmonary disease) (Acute) Diastolic CHF (Acute) Fatty liver (Acute) History of ND (myocardial infarction) (Acute) Porcelain gallbladder (Acute) Swelling of toe of left foot (Acute) Condition: Stable - Instructions Diet, Activity, Other Instructions: You were seen here due to your foot pain and swelling. Unfortunately during imaging we found that you had a clot in the R foot (the opposite foot). Your swelling and pain improved and went down and you were able to tolerate walking and standing. You were seen by vascular surgery who recommended that you do not need blood thinners right now. MEDICATIONS: Follow-Up: Please follow-up with your primary care physician at [address] [place] [address] Please follow-up with Dr. Monet regarding your CPAP (sleep machine) Please follow-up with Dr. Hernandez due to your gall bladder Referrals: Kana Rosenbaum MD [Staff Physician] - 1 Week (Dr. Hdz) Lobo Hernandez MD [Staff Physician] - 2 Weeks Nathanael Monet MD [Staff Physician] - 1 Week Disposition: VNS/HOME HEALTH CARE - Home Medications Comprehensive Discharge Medication List: Ambulatory Orders Atorvastatin Ca [Lipitor] 40 mg PO HS tablet 11/12/15 Metoprolol Succinate [Toprol XL -] 50 mg PO DAILY tab.sr.24h 11/12/15 Ranitidine [Zantac -] 150 mg PO BID tablet 11/12/15 metFORMIN HCL [Glucophage -] 500 mg PO BIDI tablet 11/12/15 Apixaban [Eliquis] 5 mg PO BID 12/22/15 Diltiazem Cd [Cardizem Cd -] 360 mg PO DAILY #60 cap.cd.24h 03/25/16 Furosemide [Lasix -] 40 mg PO DAILY 10/06/16 Aspirin Coated [Ecotrin -] 81 mg PO DAILY tablet.ec 05/22/17 ATTENDING PHYSICIAN STATEMENT I saw and evaluated the patient. I reviewed the resident's note and discussed the case with the resident. I agree with the resident's findings and plan as documented. SUBJECTIVE: OBJECTIVE: ASSESSMENT AND PLAN:
[2018-12-03 17:14] VITALS: BMI 49.7
[2018-12-03 19:18] VITALS: BP 124/78; PULSE 63; TEMP 97.8
[2018-12-03] MEDS ORDERED: ATORVASTATIN CA 80 MG TABLET (FP) PO SCH (22:00)
== END 2018-12-03 19:45 | disposition home health service (06) | DRG 300 ==
LOC: JER 20:08 → JERBED 12-02 03:28 → J4S 12-02 21:29
PROVIDERS: ADMIT Internal Medicine; ATTEND Hospitalist
DX: I74.3 Embolism and thrombosis of arteries of the lower extremities (principal); Z68.42 Body mass index [BMI] 45.0-49.9, adult; I47.1 Supraventricular tachycardia; F05 Delirium due to known physiological condition; I50.32 Chronic diastolic (congestive) heart failure; J44.9 Chronic obstructive pulmonary disease, unspecified; I25.10 Atherosclerotic heart disease of native coronary artery without angina pectoris; I48.91 Unspecified atrial fibrillation; E66.01 Morbid (severe) obesity due to excess calories; E11.9 Type 2 diabetes mellitus without complications; K42.9 Umbilical hernia without obstruction or gangrene; M79.675 Pain in left toe(s); I48.0 Paroxysmal atrial fibrillation; I11.0 Hypertensive heart disease with heart failure; E88.09 Other disorders of plasma-protein metabolism, not elsewhere classified; E78.5 Hyperlipidemia, unspecified; K76.0 Fatty (change of) liver, not elsewhere classified; K82.8 Other specified diseases of gallbladder; I25.2 Old myocardial infarction; G47.30 Sleep apnea, unspecified; F41.9 Anxiety disorder, unspecified; K21.9 Gastro-esophageal reflux disease without esophagitis; R41.82 Altered mental status, unspecified; I71.2 Thoracic aortic aneurysm, without rupture; Z95.5 Presence of coronary angioplasty implant and graft
CPT/HCPCS: 36415; 75635-TC; 76705-TC; 80053; 80061; 81003; 82962; 83721; 83880; 85025; 85027; 85610; 85730; 93005; 93010; 93971-TC; 97116-GP; 97161-GP; 99285-25; J0131; J1644

== ENCOUNTER 2019-03-18 04:45 | Emergency (ER) | payer MEDICARE, OTHER ==
[2019-03-18 05:33] VITALS: BMI 33.3
--- NOTE | 2019-03-18 05:42 | PDOC ---
History of Present Illness - General Chief Complaint: Pain, Acute Stated Complaint: LEG PAIN Time Seen by Provider: 03/18/19 05:42 History Source: Patient Past History - Past Medical History Allergies/Adverse Reactions: Allergies Allergy/AdvReac Type Severity Reaction Status Date / Time pregabalin [From Lyrica] Allergy Intermediate Verified 03/18/19 05:21 budesonide [From Symbicort] Allergy Verified 03/18/19 05:21 celecoxib [From Celebrex] Allergy Verified 03/18/19 05:21 formoterol fumarate Allergy Verified 03/18/19 05:21 [From Symbicort] sulfacetamide sodium Allergy Verified 03/18/19 05:21 [From Sulfamide] Home Medications: Ambulatory Orders Atorvastatin Ca [Lipitor] 40 mg PO HS tablet 11/12/15 Metoprolol Succinate [Toprol XL -] 50 mg PO DAILY tab.sr.24h 11/12/15 Ranitidine [Zantac -] 150 mg PO BID tablet 11/12/15 Apixaban [Eliquis] 5 mg PO BID 12/22/15 Diltiazem Cd [Cardizem Cd -] 360 mg PO DAILY #60 cap.cd.24h 03/25/16 Furosemide [Lasix -] 40 mg PO DAILY 10/06/16 Aspirin Coated [Ecotrin -] 81 mg PO DAILY tablet.ec 05/22/17 Lisinopril 5 mg PO DAILY 12/03/18 metFORMIN HCL [Glucophage -] 500 mg PO BIDI #0 tablet 12/03/18 Nystatin Powder [Nystop Powder -] 30 gm TP BID #1 bottle 12/18/18 Anemia: No Asthma: Yes Cancer: No Cardiac Disorders: Yes (2008 STENT X1,A-fib) 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) COPD: No CHF: No DVT: No Dementia: No Diabetes: Yes GI Disorders: Yes (UMBILICAL HERNIA) Disorders: No HTN: Yes Hypercholesterolemia: Yes Liver Disease: No Seizures: No Thyroid Disease: No - Surgical History Abdominal Surgery: No Appendectomy: No Cardiac Surgery: Yes (STENT X 1, LOOP RECORDER INSERTION) Cholecystectomy: No Lung Surgery: Yes (biopsy May 2013) Neurologic Surgery: Yes (brain aneurysm clipped) Orthopedic Surgery: No - Immunization History Td Vaccination: Yes Immunization Up to Date: Yes - Psycho Social/Smoking Cessation Hx Smoking Status: Yes Smoking History: Never smoked Years of Tobacco Use: 0 Have you smoked in the past 12 months: No Number of Cigarettes Smoked Daily: 0 If you are a former smoker, when did you quit?: 1970 Cigars Per Day: 0 Information on smoking cessation initiated: No 'Breaking Loose' booklet given: 08/17/13 Hx Alcohol Use: No Drug/Substance Use Hx: No Substance Use Type: None Hx Substance Use Treatment: No *Physical Exam - Vital Signs Last Vital Signs Temp Pulse Resp BP Pulse Ox 98.9 F 95 H 16 164/95 97 03/18/19 05:21 03/18/19 05:21 03/18/19 05:21 03/18/19 05:21 03/18/19 05:21 Discharge - Follow up/Referral Referrals: Misty Boateng MD [Primary Care Provider] - - Patient Discharge Instructions - Post Discharge Activity
--- NOTE | 2019-03-18 06:55 | PDOC ---
Attending Attestation - Resident Resident Name: Migel Hicks - ED Attending Attestation I have performed the following: I have examined & evaluated the patient, The case was reviewed & discussed with the resident, I agree w/resident's findings & plan, Exceptions are as noted - HPI HPI: 03/24/19 20:52 73F pmh SVT, BIBEMS c/o B/l LE weakness and pain when she woke up. At baseline ambulates with cane but now not ambulating 2/2 pain - Physicial Exam PE: 03/24/19 20:53 visible bed bugs LE diffusely ttp - Medical Decision Making 03/24/19 20:54 Consider px 2/2 infestation, bug bites, less likely central neurologic etiology , ?trauma f/u imaging dispo per clinical course
[2019-03-18 07:17] LABS: BASO % 0.5 % (0-2.0); EOS % 2.4 % (0-4.5); HEMATOCRIT 44.1 % (32.4-45.2); HEMOGLOBIN 14.9 GM/dL (10.7-15.3); MCH 30.5 pg (25.7-33.7); MCHC 33.7 g/dl (32.0-36.0); MEAN CELL VOLUME 90.2 fl (80-96); MEAN PLT VOLUME 7.9 fl (7.5-11.1); MONO % 7.2 % (3.8-10.2); NEUT % 72.9 % (42.8-82.8); PLATELET COUNT 234 K/MM3 (134-434); RBC 4.89 M/mm3 (3.60-5.2); RDW 14.8 % (11.6-15.6); WHITE BLOOD COUNT 6.3 K/mm3 (4.0-10.0)
[2019-03-18] MEDS ORDERED: ACETAMINOPHEN 1000 MG/100 ML VIAL (NON FORMULARY) IVPB ONE (07:33)
[2019-03-18 07:56] LABS: ALBUMIN 3.5 g/dl (3.4-5.0); ALK PHOS 74 U/L (45-117); ANION GAP 5 MMOL/L (8-16); BILIRUBIN,TOTAL 0.6 mg/dL (0.2-1); BLOOD UREA NITROGEN 19.3 mg/dL (7-18); CALCIUM 8.8 mg/dL (8.5-10.1); CHLORIDE 107 mmol/L (98-107); CO2 29 mmol/L (21-32); CREATININE 0.9 mg/dL (0.55-1.3); GLUCOSE,RANDOM 172 mg/dL (74-106); POTASSIUM 4.6 mmol/L (3.5-5.1); SGOT/AST 24 U/L (15-37); SGPT/ALT 19 U/L (13-61); SODIUM 141 mmol/L (136-145); TOT PROT 7.2 g/dl (6.4-8.2)
[2019-03-18] MEDS ORDERED: ACETAMINOPHEN INJECTION 100 ML IVPB ONE (08:16)
--- NOTE | 2019-03-18 08:17 | PDOC ---
*Physical Exam - Vital Signs Last Vital Signs Temp Pulse Resp BP Pulse Ox 98.9 F 95 H 16 164/95 97 03/18/19 05:21 03/18/19 05:21 03/18/19 05:21 03/18/19 05:21 03/18/19 05:21 ED Treatment Course - LABORATORY CBC & Chemistry Diagram: 03/18/19 06:45 03/18/19 06:45 - ADDITIONAL ORDERS Additional order review: Laboratory Results 03/18/19 03/18/19 06:45 06:45 Sodium 141 Potassium 4.6 Chloride 107 Carbon Dioxide 29 Anion Gap 5 L BUN 19.3 H Creatinine 0.9 Est GFR (CKD-EPI)AfAm 73.00 Est GFR (CKD-EPI)NonAf 62.99 Random Glucose 172 H Calcium 8.8 Total Bilirubin 0.6 AST 24 ALT 19 Alkaline Phosphatase 74 Creatine Kinase 99 Cancelled Troponin I < 0.02 Cancelled Total Protein 7.2 Albumin 3.5 03/18/19 06:45 RBC 4.89 MCV 90.2 MCHC 33.7 RDW 14.8 MPV 7.9 Neutrophils % 72.9 Lymphocytes % 17.0 Monocytes % 7.2 Eosinophils % 2.4 Basophils % 0.5 - RADIOLOGY Radiograph Interpretation: CT/LUMBAR SPINE CT W/O CONTRAST IMPRESSION: Assuming a partially sacralized L5, there is moderate degenerative disc disease at T12-L1 level. L4-L5 mild broad-based disc bulge without gross nerve root impingement. Marked bilateral facet hypertrophy. There is no gross evidence of spinal canal stenosis. Clinical correlation and correlation with MRI of the lumbar spine would be helpful considering the clinical history. Partially exophytic right renal indeterminate lesion measuring 2.3 cm for which correlation with ultrasound is needed to assess its consistency Stable left adrenal lesion likely representing an adrenal adenoma 03/18/19 13:06 Medical Decision Making - Medical Decision Making Pt received as sign out The pt is a 73F w/ a history of SVT who presents for evaluation of acute onset BLE weakness/pain that she noticed when she woke this AM. She is now unable to ambulate 2/2 pain At baseline walks with cane Contact precautions 2/2 bed bugs at home Pt received as sign out Pt does not have saddle anesthesia, urinary/bowel retention/incontinence Pt has BLE TTP w/ LLE petechiae 03/18/19 08:06 UA w/ evidence of UTI -Ceftriaxone 1g IV once 03/18/19 09:55 Pt reports pain is now resolved and is now ambulating in the room, tolerating PO and she states she feels at her baseline 03/18/19 13:06 Plan for D/C w/ PCP f/u CT results discussed with patient Discharge instructions and return precautions given Patient in agreement and verbalized understanding Dispo: Home 03/18/19 13:17 Discharge - Discharge Information Problems reviewed: Yes Clinical Impression/Diagnosis: Leg pain Qualifiers: Laterality: bilateral Qualified Code(s): M79.604 - Pain in right leg Condition: Improved Disposition: HOME - Admission No - Follow up/Referral Referrals: Misty Boateng MD [Primary Care Provider] - - Patient Discharge Instructions Patient Printed Discharge Instructions: DI for Musculoskeletal Pain Additional Instructions: You were seen in the hospital for evaluation of leg pain. You were treated with Tylenol. You have a urinary tract infection, a prescription was sent to your pharmacy. Take as directed. Review the handout provided at discharge. Follow up with your primary care provider within a week. Return to the Emergency Department if you develop fevers, chest pain, trouble breathing, worsening symptoms, or any new/concerning symptoms. - Post Discharge Activity Work/Back to School Note: Back to Work
[2019-03-18 09:22] LABS: EPI CELLS 4.1 /HPF (0-5/HPF); HYALINE CASTS 3 /lpf (0-8); PH,URINE 5.5 (5.0-8.0); URINE APPEARANCE CLOUDY; URINE BILIRUBIN NEGATIVE (NEGATIVE); URINE COLOR YELLOW; URINE GLUCOSE (UA) NEGATIVE (NEGATIVE); URINE KETONE NEGATIVE (NEGATIVE); URINE LEUK ESTERASE 2+ (NEGATIVE); URINE NITRITE POSITIVE (NEGATIVE); URINE PROTEIN TRACE (NEGATIVE); URINE RBC 1 /hpf (0-4); URINE WBC 330 /hpf (0-5)
[2019-03-18] MEDS ORDERED: CEFTRIAXONE 1,000 MG in DEXTROSE 5%-WATER - 50 ML IVPB ONE (09:43)
[2019-03-18] MEDS ORDERED: CEFTRIAXONE 1 GM/50 ML BAG ONE (11:27)
[2019-03-18 13:56] VITALS: BP 141/85; PULSE 74; TEMP 98.4
== END 2019-03-18 16:15 | disposition home or self-care (01) ==
LOC: JER 04:45 → UNDOADMIN 12:31 → JERBED 12:31 → JER 16:15
PROC: 3E033NZ Introduction of Analgesics, Hypnotics, Sedatives into Peripheral Vein, Percutaneous Approach (ICD-10-PCS; principal; 2019-03-18)
PROC: 3E03329 Introduction of Other Anti-infective into Peripheral Vein, Percutaneous Approach (ICD-10-PCS; 2019-03-18)
DX: M79.604 Pain in right leg (principal); Z88.8 Allergy status to other drugs, medicaments and biological substances; I47.1 Supraventricular tachycardia
CPT/HCPCS: 36415; 72131-TC; 80053; 81003; 82550; 84484; 85025; 87086; 87186; 96365; 96375; 99284-25; J0131

== ENCOUNTER 2019-12-27 12:59 | Emergency (ER) | payer MEDICARE, OTHER ==
--- NOTE | 2019-12-27 13:10 | PDOC ---
History of Present Illness - General Chief Complaint: Wound Stated Complaint: LT. FOOT PAIN Time Seen by Provider: 12/27/19 13:10 - History of Present Illness Initial Comments: 12/27/19 14:29 74yo F w/ a hx of prior LLE swelling, UTI, DM, and stents presents w/ 2days LLE swelling and a rash. She denies any pain to the leg, ankle, foot, or toes since yesterday. She states this started yesterday with redness and swelling but no pain and has gradually progressed. She denies pain, numbness, burning, and coldness to the area. She does not know how it happened; no outdoors, no animal or bug bites, no known trauma. Denies fevers, lightheadedness, or malaise *She denies any hx of problems with the LLE, however there is a prior visit to this ED documenting such a complaint. Past History - Medical History Allergies/Adverse Reactions: Allergies Allergy/AdvReac Type Severity Reaction Status Date / Time pregabalin [From Lyrica] Allergy Intermediate Verified 12/27/19 13:08 budesonide [From Symbicort] Allergy Verified 12/27/19 13:08 celecoxib [From Celebrex] Allergy Verified 12/27/19 13:08 formoterol fumarate Allergy Verified 12/27/19 13:08 [From Symbicort] sulfacetamide sodium Allergy Verified 12/27/19 13:08 [From Sulfamide] Home Medications: Ambulatory Orders Atorvastatin Ca [Lipitor] 40 mg PO HS tablet 11/12/15 Metoprolol Succinate [Toprol XL -] 50 mg PO DAILY tab.sr.24h 11/12/15 Apixaban [Eliquis] 5 mg PO BID 12/22/15 Diltiazem Cd [Cardizem Cd -] 360 mg PO DAILY #60 cap.cd.24h 03/25/16 Furosemide [Lasix -] 40 mg PO DAILY 10/06/16 Aspirin Coated [Ecotrin -] 81 mg PO DAILY tablet.ec 05/22/17 Atorvastatin Ca [Lipitor] 40 mg PO HS 12/27/19 Clindamycin [Cleocin -] 450 mg PO TID #30 capsule 12/27/19 metFORMIN HCL [Glucophage -] 500 mg PO BID 12/27/19 Anemia: No Asthma: Yes Cancer: No Cardiac Disorders: Yes (2009 STENT X1,A-fib) 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) COPD: No CHF: No DVT: No Dementia: No Diabetes: Yes GI Disorders: Yes (UMBILICAL HERNIA) Disorders: No HTN: Yes Hypercholesterolemia: Yes Liver Disease: No Seizures: No Thyroid Disease: No - Surgical History Abdominal Surgery: No Appendectomy: No Cardiac Surgery: Yes (STENT X 1, LOOP RECORDER INSERTION) Cholecystectomy: No Lung Surgery: Yes (biopsy May 2013) Neurologic Surgery: Yes (brain aneurysm clipped) Orthopedic Surgery: No - Immunization History Td Vaccination: Yes Immunization Up to Date: Yes - Psycho-Social/Smoking History Smoking Status: Yes Smoking History: Never smoked Years of Tobacco Use: 0 Have you smoked in the past 12 months: No Number of Cigarettes Smoked Daily: 0 If you are a former smoker, when did you quit?: 1970 Cigars Per Day: 0 'Breaking Loose' booklet given: 08/17/13 Review of Systems - Review of Systems Able to Perform ROS?: Yes Constitutional: No: Chills, Fever, Weakness HEENTM: No: Recent change in vision, Throat Pain Respiratory: No: Cough, Shortness of Breath Cardiac (ROS): No: Chest Pain, Edema, Lightheadedness, Palpitations, Chest Tightness ABD/GI: No: Constipated, Diarrhea, Nausea, Vomiting : No: Burning, Dysuria, Hematuria, Pain Musculoskeletal: No: Back Pain Integumentary: Yes: Rash (LLE - anterior roland since yesterday) Neurological: No: Headache, Weakness, Dizziness Endocrine: No: Symptoms Reported Hematologic/Lymphatic: No: Symptoms Reported All Other Systems: Reviewed and Negative *Physical Exam - Physical Exam General Appearance: Yes: Nourished, Appropriately Dressed, Obese. No: Apparent Distress HEENT: positive: EOMI, Normal Voice Neck: positive: Trachea midline, Supple Respiratory/Chest: positive: Lungs Clear, Normal Breath Sounds. negative: Chest Tender, Respiratory Distress Cardiovascular: positive: Regular Rhythm, Regular Rate Comments:: 12/27/19 14:44 +Doppler pulses in PT distribution b/l LE Gastrointestinal/Abdominal: positive: Normal Bowel Sounds, Soft, Protuberent Musculoskeletal: positive: Normal Inspection. negative: CVA Tenderness Extremity: positive: Normal Capillary Refill, Normal Inspection, Normal Range of Motion, Pedal Edema (2+ b/l), Swelling (LLE > RLE up to the knee), Erythema Integumentary: positive: Normal Color, Dry, Warm, Erythema, Rash (maculopapular rash on left anterior roland extending from the ankle joint up to the mid roland. ), Swelling (LLE > RLE) Neurologic: positive: Fully Oriented, Alert, Normal Response ED Treatment Course - LABORATORY CBC & Chemistry Diagram: 12/27/19 14:30 12/27/19 14:30 Medical Decision Making - Medical Decision Making 12/27/19 14:47 74yo F w/ hx prior issues to LLE presents with repeat rash and swelling. US showed cobblestoning and edema LLE > RLE -> will duplex and start ABX pending kidney fxn. -> duplex showed no DVT -> less likely - will DC with o/p ABX and f/u with denis sheriff Discharge - Discharge Information Problems reviewed: Yes Clinical Impression/Diagnosis: Cellulitis Qualifiers: Site of cellulitis: extremity Site of cellulitis of extremity: lower extremity Laterality: left Qualified Code(s): L03.116 - Cellulitis of left lower limb - Admission No - Additional Discharge Information Prescriptions: Clindamycin [Cleocin -] 450 mg PO TID #30 capsule - Follow up/Referral Referrals: [facility] [place] [Provider Group] - Patient Discharge Instructions Additional Instructions: You were seen in the ED today for a rash and swelling of your left leg. We diagnosed you with cellulitis, a skin and soft tissue infection of the leg. We are treating you with antibiotics. The clindamycin instructions are as follows: take 450mg, three times per day, for ten days. If you develop any reaction, such as rash, difficulty breathing, or fever, stop taking the medication immediately and come to the emergency room. We referred you to a primary care doctor - Denis Sheriff [facility], just down the street from [facility]. Call within 48hours and make an appointment to see one of their doctors and follow up with them. Come back to the ED with any new or worsening symptoms. - Post Discharge Activity
[2019-12-27 13:11] VITALS: BMI 51.5
--- OUTSIDE RECORDS SUMMARY | 2019-12-27 13:44 | XMS ---
:1945 [facility] Providers Name Role Phone [facility] Unavailable Unavailable Re-disclosure Warning The records that you are about to access may contain information from federally- assisted alcohol or drug abuse programs. If such information is present, then the following federally mandated warning applies: This information has been disclosed to you from records protected by federal confidentiality rules (42 CFR part 2). The federal rules prohibit you from making any further disclosure of this information unless further disclosure is expressly permitted by the written consent of the person to whom it pertains or as otherwise permitted by 42 CFR part 2. A general authorization for the release of medical or other information is NOT sufficient for this purpose. The Federal rules restrict any use of the information to criminally investigate or prosecute any alcohol or drug abuse patient.The records that you are about to access may contain highly sensitive health information, the redisclosure of which is protected by Article 27-F of the [facility] Public Health law. If you continue you may haveaccess to information: Regarding HIV / AIDS; Provided by facilities licensed or operated by the [facility] Office of Mental Health; or Provided by the [facility] Office for People With Developmental Disabilities. If such information is present, then the following [facility] mandated warning applies: This information has been disclosed to you from confidential records which are protected by state law. State law prohibits you from making any further disclosure of this information without the specific written consent of the person to whom it pertains, or as otherwise permitted by law. Any unauthorized further disclosure in violation of state law may result in a fine or alf sentence or both. A general authorization for the release of medical or other information is NOT sufficient authorization for further disclosure. Encounters Encounter Providers Location Date Indications Data Source(s ) Outpatient Attender: [id number] 12/12/2019 [facility] 03:44:53 PM [facility] EDT Patient admitted. Outpatient Attender: [facility] 10/08/2019 11:30:28 AM [facility] ([facility]) Patient admitted. Outpatient Attender: [facility] 04/26/2019 11:56:13 AM [facility] ([facility]) Patient admitted. Medications Medication Brand Start Product Dose Route Administrative Pharmacy [facility] Indications Reaction Description Data Name Date Form Instructions Instructions Source(s) Sertraline Sertra .0 active Sertrali ne eCW3 50 MG Oral line 2019 {tabl HCl 50 MG ([facility] Tablet HCl 50 12:00: et} [facility] Sertraline MG 00 AM Health HCl 50 MG EST Care) Diapers & UNK 04/26/ active Diapers & e CW3 Supplies - 2020 Supplies - ([facility] 12:00: [facility] 00 AM Health EST Care) Diapers & UNK 04/26/ active Diapers & e CW3 Supplies - 2020 Supplies - ([facility] 12:00: [facility] 00 AM Health EST Care) Insurance Providers Payer name Policy type Policy ID Covered Covered republican's Policy P pilo / Coverage republican ID relationship to [place] [employer] type [place] MED[place] [id number] SP [id number] [facility] [id number] SP [id number] MEDICARE ADV PLAN [place] MEDICARE [id number] SP [id number] [employer] MEDICARE [id number] SP [id number] MEDICAID [id number] SP [id number] Social History Code Duration Value Status Description Data Source(s ) Smoking 05/21/2019 12:00:00 Former Smoker completed Former Smoker eCW3 ([facility])
[2019-12-27] MEDS ORDERED: ACETAMINOPHEN 1000 MG/100 ML VIAL (NON FORMULARY) IVPB ONE (14:06)
[2019-12-27] MEDS ORDERED: ISOSORBIDE MONONITRATE 30 MG TAB.SR.24H (FP) PO ONE (14:24)
[2019-12-27] MEDS ORDERED: ACETAMINOPHEN INJECTION 100 ML IVPB ONE (14:39)
--- NOTE | 2019-12-27 14:57 | PDOC ---
Documentation entered by Giovanny Liu SCRIBE, acting as scribe for Zeny Josue MD. Zeny Josue MD: This documentation has been prepared by the ciarae, Giovanny Liu SCRIBE, under my direction and personally reviewed by me in its entirety. I confirm that the documentation accurately reflects all work, treatment, procedures, and medical decision making performed by me. Attending Attestation - Resident Resident Name: Vitaly Hansen - ED Attending Attestation I have performed the following: I have examined & evaluated the patient, The case was reviewed & discussed with the resident, I agree w/resident's findings & plan, Exceptions are as noted - HPI HPI: 12/27/19 13:47 The patient is a 74 year old female with a significant past medical history of CAD s/p stent, diastolic CHF, Afib (on Eliquis) COPD, paroxysmal SVT, thoracic aortic aneurysm s/p repair, cerebral aneurysm s/p clipping, NIDDM, HTN, HLD, and anxiety who presents to the emergency department for evaluation of left lower extremity and foot reddening rash that began yesterday. The patient reports her rash extends from her distal roland to the dorsum of the foot but does not include her sole. She notes the rash in not painful. As per chart, the patient had left foot maculopapular rash in the past. The patient is a poor historian. The patient denies chest/abdominal/back pain, cough, and shortness of breath. Denies fever, chills, nausea, vomiting, and/or any GI symptoms. Denies any symptoms. Denies any other symptoms. Allergies: pregabalin, budesonide, celecoxib, formoterol fumarate, sulfacetamide sodium Social Hx:None reported Surgical Hx: stent x1, loop recorder insertion, lung biopsy May 2013, brain aneurysm clip - Physicial Exam PE: 12/27/19 13:12 GENERAL: nontoxic-appearing, A/Ox4, no distress, answers questions appropriately, morbidly obese HEENT: PERRLA, EOMI, moist mucous membranes NECK/BACK: no midline ttp, no spinal stepoff or deformity, no hematoma, full ROM, neck supple CARDIOVASCULAR: regular rate/rhythm, no MGR, strong peripheral pulses, capillary refill <2 seconds, extremities wwp LUNGS/RESPIRATORY: no respiratory distress, CTAB GI/ABDOMEN: symmetric bkqx-lm-node, normoactive BS, soft, no ttp, no midline pulsatile masses : no CVA tenderness MSK/EXTREMITIES: BLE pitting edema with LLE>RLE, LLE with anterior tibial erythema which is warm compared with contralateral side but nontender (patient does have decreased sensation), there is no crepitus, no palpable DP pulses but dopplerable PT pulses bilaterally, no muscle atrophy, no acute deformity SKIN: other than noted in Extremities section, skin is warm and dry, no pallor, no jaundice, no pathologic-appearing bruising, no skin breakdown, no cuts, no lesions NEUROLOGICAL: GCS 15, CN II-XII grossly intact, 5/5 strength proximally and distally, no facial droop - Medical Decision Making 12/27/19 14:54 74YOF with multiple medical comorbidities p/w LLE redness and swelling. Initial Vital Signs Temp Pulse Resp BP Pulse Ox 98.1 F 62 20 191/81 H 98 12/27/19 13:08 12/27/19 13:08 12/27/19 13:08 12/27/19 13:08 12/27/19 13:08 DDX IBNLT: cellulitis, osteomyelitis, necrotizing soft tissue infection, sepsis, DVT, superficial venous thrombosis, CHF exacerbation, PVD, pulmonary HTN, etc W/U ordered: CBCD CMP Mg Phos Lactate BCx Coags T&S EKG CXR and X-ray leg to r/o gas. Provider Orders Category Date Time Status CBC WITH DIFFERENTIAL Stat Lab 12/27/19 14:30 Completed COMP METABOLIC PANEL Stat Lab 12/27/19 14:30 Completed PT/INR (PROTHROMBIN TIME) Stat Lab 12/27/19 14:30 Completed Acetaminophen Injection [Ofirmev Injection -] Medication 12/27/19 14:06 Disc ontinued 1,000 mg IVPB ONCE ONE Acetaminophen Injection [Ofirmev Injection -] 100 ml Medication 12/27/19 14:39 Discontinued IVPB UD Clindamycin [Cleocin -] Medication 12/27/19 15:52 Discontinued 450 mg PO ONCE ONE Isosorbide Mononitrate [Imdur -] Medication 12/27/19 14:24 Discontinued 30 mg PO ONCE ONE IV Insert NOW Phy Order 12/27/19 14:06 Completed DUPLEX VASCUL US-1 LEG [US] Stat Ultrasound 12/27/19 14:05 Completed Medications Discontinued Medications Generic Name Dose Route Start Last Admin Trade Name Radha PRN Reason Stop Dose Admin Acetaminophen 1,000 mg 12/27/19 14:06 Ofirmev Injection - IVPB 12/27/19 14:07 ONCE ONE Clindamycin HCl 450 mg 12/27/19 15:52 Cleocin - PO 12/27/19 15:53 ONCE ONE Acetaminophen Confirm 12/27/19 14:39 Ofirmev Injection - Administered 12/27/19 14:40 Dose 100 mls @ ud IVPB .STK-MED ONE Isosorbide Mononitrate 30 mg 12/27/19 14:24 Imdur - PO 12/27/19 14:25 ONCE ONE Lab Results WBC 4.7 K/mm3 (4.0-10.0) 12/27/19 14:30 RBC 4.59 M/mm3 (3.60-5.2) 12/27/19 14:30 Hgb 13.6 GM/dL (10.7-15.3) 12/27/19 14:30 Hct 41.5 % (32.4-45.2) 12/27/19 14:30 MCV 90.4 fl (80-96) 12/27/19 14:30 MCH 29.6 pg (25.7-33.7) 12/27/19 14:30 MCHC 32.7 g/dl (32.0-36.0) 12/27/19 14:30 RDW 16.0 % (11.6-15.6) H 12/27/19 14:30 Plt Count 266 K/MM3 (134-434) 12/27/19 14:30 MPV 8.3 fl (7.5-11.1) 12/27/19 14:30 Absolute Neuts (auto) 2.9 K/mm3 (1.5-8.0) 12/27/19 14:30 Neutrophils % 60.6 % (42.8-82.8) 12/27/19 14:30 Lymphocytes % 27.1 % (8-40) D 12/27/19 14:30 Monocytes % 8.2 % (3.8-10.2) 12/27/19 14:30 Eosinophils % 3.4 % (0-4.5) 12/27/19 14:30 Basophils % 0.7 % (0-2.0) 12/27/19 14:30 Nucleated RBC % 0 % (0-0) 12/27/19 14:30 PT with INR 12.60 SEC (9.7-13.0) 12/27/19 14:30 INR 1.03 (0.83-1.09) 12/27/19 14:30 Sodium 142 mmol/L (136-145) 12/27/19 14:30 Potassium 4.9 mmol/L (3.5-5.1) 12/27/19 14:30 Chloride 109 mmol/L (98-107) H 12/27/19 14:30 Carbon Dioxide 26 mmol/L (21-32) 12/27/19 14:30 Anion Gap 7 MMOL/L (8-16) L 12/27/19 14:30 BUN 17.2 mg/dL (7-18) 12/27/19 14:30 Creatinine 0.8 mg/dL (0.55-1.3) 12/27/19 14:30 Est GFR (CKD-EPI)AfAm 83.59 12/27/19 14:30 Est GFR (CKD-EPI)NonAf 72.12 12/27/19 14:30 Random Glucose 139 mg/dL (74-106) H 12/27/19 14:30 Calcium 8.9 mg/dL (8.5-10.1) 12/27/19 14:30 Total Bilirubin 0.4 mg/dL (0.2-1) 12/27/19 14:30 AST 14 U/L (15-37) L 12/27/19 14:30 ALT 21 U/L (13-61) 12/27/19 14:30 Alkaline Phosphatase 65 U/L (45-117) 12/27/19 14:30 Total Protein 7.2 g/dl (6.4-8.2) 12/27/19 14:30 Albumin 3.3 g/dl (3.4-5.0) L 12/27/19 14:30 Duplex venous LLE is negative for DVT. +Mae's cyst. The patient has lower leg mild cellulitis and will be tx with clindamycin (has activity against strep/staph toxin). The patient is appropriate for outpatient treatment at this time, especially given that her daughter will be able to assist her in taking the medications (we have called and verified with the daughter that she will be able to). Last Vital Signs Temp Pulse Resp BP Pulse Ox 97.6 F 64 18 163/85 99 12/27/19 16:00 12/27/19 16:00 12/27/19 16:00 12/27/19 16:00 12/27/19 16:00 Return precautions have been discussed, dispo per resident note. Discharge - Discharge Information Problems reviewed: Yes Clinical Impression/Diagnosis: Cellulitis Qualifiers: Site of cellulitis: extremity Site of cellulitis of extremity: lower extremity Laterality: left Qualified Code(s): L03.116 - Cellulitis of left lower limb Condition: Stable Disposition: HOME - Admission No - Additional Discharge Information Prescriptions: Clindamycin [Cleocin -] 450 mg PO TID #30 capsule - Follow up/Referral [place] [facility] [place] [facility] [place] [facility] [place] Group] - Patient Discharge Instructions Additional Instructions: You were seen in the ED today for a rash and swelling of your left leg. We diagnosed you with cellulitis, a skin and soft tissue infection of the leg. We are treating you with antibiotics. The clindamycin instructions are as follows: take 450mg, three times per day, for ten days. If you develop any reaction, such as rash, difficulty breathing, or fever, stop taking the medication immediately and come to the emergency room. We referred you to a primary care doctor - [facility], just down the street from [facility]. Call within 48hours and make an appointment to see one of their doctors and follow up with them. Come back to the ED with any new or worsening symptoms. - Post Discharge Activity
[2019-12-27 15:05] LABS: BASO % 0.7 % (0-2.0); EOS % 3.4 % (0-4.5); HEMATOCRIT 41.5 % (32.4-45.2); HEMOGLOBIN 13.6 GM/dL (10.7-15.3); LYMPH % 27.1 % (8-40); MCH 29.6 pg (25.7-33.7); MCHC 32.7 g/dl (32.0-36.0); MEAN CELL VOLUME 90.4 fl (80-96); MEAN PLT VOLUME 8.3 fl (7.5-11.1); MONO % 8.2 % (3.8-10.2); NEUT % 60.6 % (42.8-82.8); PLATELET COUNT 266 K/MM3 (134-434); RBC 4.59 M/mm3 (3.60-5.2); WHITE BLOOD COUNT 4.7 K/mm3 (4.0-10.0)
[2019-12-27 15:11] LABS: INR 1.03 (0.83-1.09); PROTHROMBIN TIME (PATIENT) 12.6 SEC (9.7-13.0)
[2019-12-27 15:27] LABS: CALCIUM 8.9 mg/dL (8.5-10.1); POTASSIUM 4.9 mmol/L (3.5-5.1)
[2019-12-27 15:28] LABS: ALBUMIN 3.3 g/dl (3.4-5.0); BLOOD UREA NITROGEN 17.2 mg/dL (7-18)
[2019-12-27 15:31] LABS: CREATININE 0.8 mg/dL (0.55-1.3)
[2019-12-27 15:32] LABS: BILIRUBIN,TOTAL 0.4 mg/dL (0.2-1)
[2019-12-27 15:33] LABS: TOT PROT 7.2 g/dl (6.4-8.2)
[2019-12-27] MEDS ORDERED: CLINDAMYCIN HCL 150 MG CAPSULE (FP) PO ONE (15:52)
[2019-12-27] MEDS ORDERED: CLINDAMYCIN HCL 150 MG CAPSULE (FP) ONE (16:03)
[2019-12-27 17:43] VITALS: BP 163/85; PULSE 64; TEMP 97.6
== END 2019-12-27 16:30 | disposition home or self-care (01) ==
LOC: JER 12:59
DX: L03.116 Cellulitis of left lower limb (principal)
CPT/HCPCS: 36415; 80053; 85025; 85610; 93971-TC; 99284-25

== ENCOUNTER 2020-10-06 18:51 | Inpatient (IN) | payer MEDICARE, OTHER ==
[2020-10-06 21:05] LABS: ARTERIAL BLD GAS O2 SATURATION 95.9 % (95-98); ARTERIAL BLOOD GAS BASE EXCESS 0.1 mmol/L (-2-2); ARTERIAL BLOOD GAS PO2 76.8 mmHg (80-100); ARTERIAL BLOOD GAS pH 7.442 (7.350-7.450)
[2020-10-06 21:15] LABS: BASO % 0.2 % (0-2.0); EOS % 0.1 % (0-4.5); HEMATOCRIT 49.9 % (32.4-45.2); HEMOGLOBIN 17.1 GM/dL (10.7-15.3); LYMPH % 6.3 % (8-40); MCH 29.9 pg (25.7-33.7); MCHC 34.3 g/dl (32.0-36.0); MEAN CELL VOLUME 87.2 fl (80-96); MEAN PLT VOLUME 7.6 fl (7.5-11.1); MONO % 5.9 % (3.8-10.2); NEUT % 87.5 % (42.8-82.8); PLATELET COUNT 289 10^3/uL (134-434); RBC 5.72 M/mm3 (3.60-5.2); RDW 15.8 % (11.6-15.6); WHITE BLOOD COUNT 12.8 K/mm3 (4.0-10.0)
[2020-10-06] MEDS ORDERED: LACTATED RINGERS SOLUTION 1000 ML INFUS.BAG IV ONE (21:21)
[2020-10-06 21:24] LABS: INR 1.09 (0.83-1.09); PROTHROMBIN TIME (PATIENT) 13.2 SEC (9.7-13.0)
[2020-10-06 21:27] LABS: ACTIVATED PTT 45.9 SECONDS (25.2-36.5)
[2020-10-06 21:32] LABS: ALBUMIN 3.8 g/dl (3.4-5.0); BLOOD UREA NITROGEN 18.5 mg/dL (7-18); CALCIUM 9.5 mg/dL (8.5-10.1)
[2020-10-06 21:33] LABS: MAGNESIUM 1.9 mg/dL (1.8-2.4)
[2020-10-06 21:35] LABS: CREATININE 1.4 mg/dL (0.55-1.3)
[2020-10-06 21:36] LABS: BILIRUBIN,TOTAL 1.7 mg/dL (0.2-1); TOT PROT 7.8 g/dl (6.4-8.2)
[2020-10-07 00:06] LABS: EPI CELLS 20 /uL (0-25.1); HYALINE CASTS 15 /uL (0-3.1); URINE APPEARANCE TURBID; URINE BACTERIA 1957 /uL (0-1359); URINE BILIRUBIN 2+ (NEGATIVE); URINE COLOR DK YELLOW; URINE GLUCOSE (UA) TRACE (NEGATIVE); URINE KETONE TRACE (NEGATIVE); URINE LEUK ESTERASE 2+ (NEGATIVE); URINE NITRITE NEGATIVE (NEGATIVE); URINE PROTEIN 4+ (NEGATIVE); URINE RBC 75 /uL (0-23.9); URINE WBC 1754 /uL (0-25.8)
[2020-10-07] MEDS ORDERED: CEFTRIAXONE 1 GM in DEXTROSE 5%-WATER - 50 ML IVPB ONE (00:16)
[2020-10-07] MEDS ORDERED: CEFTRIAXONE 1 GM/50 ML BAG ONE (00:24)
[2020-10-07] MEDS ORDERED: SODIUM CHLORIDE 1,000 ML IV SCH ×2 (03:45→10:18)
[2020-10-07] MEDS: INSULIN SLIDING SCALE (NOVOLOG) 1 VIAL SQ SCH ×4 (07:06→21:44)
[2020-10-07 07:47] LABS: BASO % 0.4 % (0-2.0); EOS % 1.1 % (0-4.5); HEMATOCRIT 46.9 % (32.4-45.2); HEMOGLOBIN 16.4 GM/dL (10.7-15.3); LYMPH % 17.6 % (8-40); MCH 30.6 pg (25.7-33.7); MEAN CELL VOLUME 87.5 fl (80-96); MEAN PLT VOLUME 7.9 fl (7.5-11.1); MONO % 9.1 % (3.8-10.2); NEUT % 71.8 % (42.8-82.8); PLATELET COUNT 251 10^3/uL (134-434); RBC 5.36 M/mm3 (3.60-5.2); RDW 15.7 % (11.6-15.6)
[2020-10-07 07:59] LABS: CALCIUM 9.1 mg/dL (8.5-10.1)
[2020-10-07 08:00] LABS: ALBUMIN 3.7 g/dl (3.4-5.0); BLOOD UREA NITROGEN 24.3 mg/dL (7-18); MAGNESIUM 1.9 mg/dL (1.8-2.4)
[2020-10-07 08:03] LABS: CREATININE 1.6 mg/dL (0.55-1.3); PHOSPHOROUS 3.8 mg/dL (2.5-4.9)
[2020-10-07 08:04] LABS: BILIRUBIN,TOTAL 1.4 mg/dL (0.2-1); TOT PROT 7.2 g/dl (6.4-8.2)
[2020-10-07] MEDS ORDERED: DEXTROSE 5%-WATER - 50 ML IVPB ONE (08:18)
[2020-10-07] MEDS ORDERED: cefTRIAXone SODIUM 1 GM VIAL ONE (08:18)
[2020-10-07 08:50] VITALS: BMI 39.8
[2020-10-07] MEDS: CEFTRIAXONE 1 GM in DEXTROSE 5%-WATER - 50 ML IVPB SCH (09:44)
[2020-10-07] MEDS ORDERED: INSULIN (NOVOLOG) ASPART 100 UNITS/ML 10ML VIAL ONE ×2 (17:45→19:57)
[2020-10-07] MEDS ORDERED: INSULIN (LEVEMIR) 100 UNITS/ML UNITS SQ ONE (17:45)
[2020-10-08] MEDS: INSULIN SLIDING SCALE (NOVOLOG) 1 VIAL SQ SCH ×4 (06:05→20:59)
[2020-10-08 07:51] LABS: HEMATOCRIT 46.5 % (32.4-45.2); HEMOGLOBIN 15.8 GM/dL (10.7-15.3); MCH 30.5 pg (25.7-33.7); MCHC 33.9 g/dl (32.0-36.0); MEAN CELL VOLUME 89.8 fl (80-96); MEAN PLT VOLUME 8.5 fl (7.5-11.1); PLATELET COUNT 49 10^3/uL (134-434); RBC 5.18 M/mm3 (3.60-5.2); RDW 16.3 % (11.6-15.6); WHITE BLOOD COUNT 7.7 K/mm3 (4.0-10.0)
[2020-10-08 08:20] LABS: BLOOD UREA NITROGEN 34.7 mg/dL (7-18); CALCIUM 8.9 mg/dL (8.5-10.1); CREATININE 1.4 mg/dL (0.55-1.3)
[2020-10-08] MEDS ORDERED: DEXTROSE 5%-WATER - 50 ML IVPB ONE (08:51)
[2020-10-08] MEDS ORDERED: cefTRIAXone SODIUM 1 GM VIAL ONE (08:51)
[2020-10-08] MEDS ORDERED: SODIUM CHLORIDE 0.45% 1,000 ML IV SCH (12:30)
[2020-10-08 13:31] LABS: BASO % 0.9 % (0-2.0); EOS % 2.4 % (0-4.5); HEMATOCRIT 43.7 % (32.4-45.2); HEMOGLOBIN 15.1 GM/dL (10.7-15.3); LYMPH % 21.4 % (8-40); MCH 30.7 pg (25.7-33.7); MCHC 34.5 g/dl (32.0-36.0); MEAN CELL VOLUME 89.1 fl (80-96); MEAN PLT VOLUME 8.1 fl (7.5-11.1); MONO % 9.6 % (3.8-10.2); NEUT % 65.7 % (42.8-82.8); PLATELET COUNT 243 10^3/uL (134-434); RBC 4.91 M/mm3 (3.60-5.2); RDW 15.9 % (11.6-15.6); WHITE BLOOD COUNT 7.4 K/mm3 (4.0-10.0)
[2020-10-08 13:43] LABS: INR 1.13 (0.83-1.09); PROTHROMBIN TIME (PATIENT) 13.6 SEC (9.7-13.0)
[2020-10-08 13:46] LABS: ACTIVATED PTT 32.4 SECONDS (25.2-36.5)
[2020-10-08] MEDS ORDERED: HEPARIN NA (PORCINE) 5,000 UNITS/ML 1ML VIAL SQ SCH (14:00)
[2020-10-08] MEDS: CEFTRIAXONE 1 GM in DEXTROSE 5%-WATER - 50 ML IVPB SCH (14:51)
[2020-10-08] MEDS ORDERED: NYSTATIN POWDER 100,000 UNITS/GM - 15 GM TOPICAL POWDER TP PRN (20:06)
[2020-10-08] MEDS: FAMOTIDINE 20 MG TABLET PO SCH (20:59)
[2020-10-09 07:12] LABS: BASO % 1.3 % (0-2.0); EOS % 3.4 % (0-4.5); HEMATOCRIT 42.7 % (32.4-45.2); HEMOGLOBIN 14.6 GM/dL (10.7-15.3); LYMPH % 31.1 % (8-40); MCH 30.4 pg (25.7-33.7); MCHC 34.1 g/dl (32.0-36.0); MEAN CELL VOLUME 89.1 fl (80-96); MEAN PLT VOLUME 7.6 fl (7.5-11.1); MONO % 9.2 % (3.8-10.2); PLATELET COUNT 198 10^3/uL (134-434); RBC 4.79 M/mm3 (3.60-5.2); RDW 15.8 % (11.6-15.6); WHITE BLOOD COUNT 5.7 K/mm3 (4.0-10.0)
[2020-10-09 07:46] LABS: ALBUMIN 3.2 g/dl (3.4-5.0); BLOOD UREA NITROGEN 32.7 mg/dL (7-18); CALCIUM 8.2 mg/dL (8.5-10.1)
[2020-10-09 07:49] LABS: CREATININE 1.1 mg/dL (0.55-1.3)
[2020-10-09 07:50] LABS: PHOSPHOROUS 3.7 mg/dL (2.5-4.9)
[2020-10-09 07:51] LABS: BILIRUBIN,TOTAL 0.7 mg/dL (0.2-1); TOT PROT 6.3 g/dl (6.4-8.2)
[2020-10-09] MEDS ORDERED: APIXABAN 5 MG TABLET PO SCH (10:00)
[2020-10-09] MEDS ORDERED: cefTRIAXone SODIUM 1 GM VIAL ONE (10:08)
[2020-10-09] MEDS ORDERED: DEXTROSE 5%-WATER - 50 ML IVPB ONE (10:08)
[2020-10-09] MEDS: CEFTRIAXONE 1 GM in DEXTROSE 5%-WATER - 50 ML IVPB SCH (10:36)
[2020-10-09] MEDS: LISINOPRIL 10 MG TABLET PO SCH (10:36)
[2020-10-09] MEDS: SERTRALINE HCL 50 MG TABLET (FP) PO SCH (10:37)
[2020-10-09] MEDS: HYDROCHLOROTHIAZIDE 12.5 MG CAPSULE (FP) PO SCH (10:37)
[2020-10-09] MEDS: ISOSORBIDE MONONITRATE 30 MG TAB.SR.24H (FP) PO SCH (10:37)
[2020-10-09 16:39] LABS: EPI CELLS >36 /uL (0-25.1); HYALINE CASTS 2 /uL (0-3.1); URINE APPEARANCE CLEAR; URINE BACTERIA 225 /uL (0-1359); URINE BILIRUBIN NEGATIVE (NEGATIVE); URINE COLOR YELLOW; URINE GLUCOSE (UA) NEGATIVE (NEGATIVE); URINE KETONE NEGATIVE (NEGATIVE); URINE LEUK ESTERASE 1+ (NEGATIVE); URINE NITRITE NEGATIVE (NEGATIVE); URINE PROTEIN NEGATIVE (NEGATIVE); URINE RBC 49 /uL (0-23.9); URINE UROBILINOGEN 0.2 mg/dL (0.2-1.0); URINE WBC 23 /uL (0-25.8)
[2020-10-09] MEDS: INSULIN SLIDING SCALE (NOVOLOG) 1 VIAL SQ SCH ×4 (17:43→21:03)
[2020-10-09] MEDS: FAMOTIDINE 20 MG TABLET PO SCH (21:03)
[2020-10-10] MEDS: INSULIN SLIDING SCALE (NOVOLOG) 1 VIAL SQ SCH ×2 (06:00→10:21)
[2020-10-10 08:41] LABS: BASO % 0.7 % (0-2.0); EOS % 3.4 % (0-4.5); HEMATOCRIT 39.4 % (32.4-45.2); HEMOGLOBIN 13.5 GM/dL (10.7-15.3); LYMPH % 26.6 % (8-40); MCH 30.4 pg (25.7-33.7); MCHC 34.4 g/dl (32.0-36.0); MEAN CELL VOLUME 88.3 fl (80-96); MEAN PLT VOLUME 7.7 fl (7.5-11.1); MONO % 10.4 % (3.8-10.2); NEUT % 58.9 % (42.8-82.8); PLATELET COUNT 200 10^3/uL (134-434); RBC 4.46 M/mm3 (3.60-5.2); RDW 15.9 % (11.6-15.6); WHITE BLOOD COUNT 5.4 K/mm3 (4.0-10.0)
[2020-10-10 09:06] LABS: BLOOD UREA NITROGEN 23.3 mg/dL (7-18)
[2020-10-10 09:07] LABS: ALBUMIN 3.2 g/dl (3.4-5.0); CALCIUM 8.5 mg/dL (8.5-10.1)
[2020-10-10 09:08] LABS: MAGNESIUM 2.1 mg/dL (1.8-2.4)
[2020-10-10 09:10] LABS: PHOSPHOROUS 3.8 mg/dL (2.5-4.9)
[2020-10-10 09:12] LABS: BILIRUBIN,TOTAL 0.6 mg/dL (0.2-1); TOT PROT 6.1 g/dl (6.4-8.2)
[2020-10-10] MEDS ORDERED: DEXTROSE 5%-WATER - 50 ML IVPB ONE (09:53)
[2020-10-10] MEDS ORDERED: cefTRIAXone SODIUM 1 GM VIAL ONE (09:53)
[2020-10-10] MEDS: HYDROCHLOROTHIAZIDE 12.5 MG CAPSULE (FP) PO SCH (10:19)
[2020-10-10] MEDS: ISOSORBIDE MONONITRATE 30 MG TAB.SR.24H (FP) PO SCH (10:19)
[2020-10-10] MEDS: SERTRALINE HCL 50 MG TABLET (FP) PO SCH (10:20)
[2020-10-10] MEDS: CEFTRIAXONE 1 GM in DEXTROSE 5%-WATER - 50 ML IVPB SCH (10:20)
[2020-10-10] MEDS: LISINOPRIL 10 MG TABLET PO SCH (10:20)
[2020-10-10] MEDS ORDERED: LIDOCAINE 1%/EPI 1:100000 (20 ML MULTI DOSE VIAL) INF ONE (11:05)
[2020-10-10] MEDS ORDERED: LIDOCAINE HCL 1% EPINEPHRINE 1:200,000 30 ML VIAL (PF) ONE (11:07)
[2020-10-10 11:37] VITALS: PULSE 59
[2020-10-10 12:50] VITALS: BP 139/68
[2020-10-10 13:33] VITALS: TEMP 99.1
== END 2020-10-10 16:40 | disposition home health service (06) | DRG 981 ==
LOC: JER 18:51 → JERBED 10-07 01:49 → J7W 10-07 06:51
PROVIDERS: ADMIT Internal Medicine
PROC: 0JH632Z Insertion of Monitoring Device into Chest Subcutaneous Tissue and Fascia, Percutaneous Approach (ICD-10-PCS; principal; 2020-10-10 11:06)
DX: N39.0 Urinary tract infection, site not specified (principal); G93.41 Metabolic encephalopathy; I50.32 Chronic diastolic (congestive) heart failure; N17.9 Acute kidney failure, unspecified; N18.9 Chronic kidney disease, unspecified; E78.5 Hyperlipidemia, unspecified; I25.10 Atherosclerotic heart disease of native coronary artery without angina pectoris; Z68.39 Body mass index [BMI] 39.0-39.9, adult; I48.0 Paroxysmal atrial fibrillation; K21.9 Gastro-esophageal reflux disease without esophagitis; E66.01 Morbid (severe) obesity due to excess calories; I11.0 Hypertensive heart disease with heart failure; E11.9 Type 2 diabetes mellitus without complications; Z98.61 Coronary angioplasty status; N28.1 Cyst of kidney, acquired; F41.8 Other specified anxiety disorders; E86.0 Dehydration
CPT/HCPCS: 36415; 36600; 70450-TC; 71045-TC-FY; 76775-TC; 76856-TC; 80048; 80053; 81003; 82010; 82436; 82550; 82570; 82803; 82962; 83010; 83615; 83690; 83735; 84100; 84133; 84300; 84443; 84484; 84540; 85025; 85027; 85045; 85379; 85384; 85610; 85730; 86780; 87040; 93005; 93010; 93306-TC; 93880-TC; 97116-GP; 97161-GP; 99285-25; C9803; U0003; U0005

== ENCOUNTER 2021-03-02 13:34 | Inpatient (IN) | payer MEDICARE, OTHER ==
[2021-03-02 14:10] VITALS: BMI 53.1
[2021-03-02 15:05] LABS: BASO % 0.7 % (0-2.0); EOS % 0.6 % (0-4.5); HEMATOCRIT 43.3 % (32.4-45.2); HEMOGLOBIN 14.7 GM/dL (10.7-15.3); LYMPH % 6.2 % (8-40); MCH 29.9 pg (25.7-33.7); MEAN CELL VOLUME 88.1 fl (80-96); MEAN PLT VOLUME 8.2 fl (7.5-11.1); MONO % 8.2 % (3.8-10.2); NEUT % 84.3 % (42.8-82.8); PLATELET COUNT 174 10^3/uL (134-434); RBC 4.92 M/mm3 (3.60-5.2); RDW 15.5 % (11.6-15.6); WHITE BLOOD COUNT 6.5 K/mm3 (4.0-10.0)
[2021-03-02 15:24] LABS: CHLORIDE 108 mmol/L (98-107); SODIUM 138 mmol/L (136-145)
[2021-03-02 15:27] LABS: CALCIUM 9.2 mg/dL (8.5-10.1)
[2021-03-02 15:28] LABS: ALBUMIN 3.4 g/dl (3.4-5.0); ANION GAP 8 MMOL/L (8-16); BLOOD UREA NITROGEN 23.6 mg/dL (7-18); CO2 23 mmol/L (21-32); GLUCOSE,RANDOM 138 mg/dL (74-106); MAGNESIUM 1.7 mg/dL (1.8-2.4)
[2021-03-02 15:31] LABS: CREATININE 1.1 mg/dL (0.55-1.3); SGOT/AST 14 U/L (15-37); SGPT/ALT 23 U/L (13-61)
[2021-03-02 15:33] LABS: BILIRUBIN,TOTAL 1.6 mg/dL (0.2-1)
[2021-03-02 15:34] LABS: ALK PHOS 88 U/L (45-117)
[2021-03-02] MEDS ORDERED: MAGNESIUM SULF 50% (8.12 MEQ/2 ML-1 GM VIAL) IVPB ONE (15:57)
[2021-03-02] MEDS ORDERED: ASPIRIN 81 MG CHEWABLE TABLETS PO ONE (16:07)
[2021-03-02] MEDS ORDERED: ASPIRIN 81 MG CHEWABLE TABLETS ONE (16:11)
[2021-03-02] MEDS ORDERED: MAGNESIUM 1GM/D5W - 1 GM/100 ML IVPB IVPB ONE (16:11)
[2021-03-02 17:02] LABS: EPI CELLS 10 /uL (0-25.1); HYALINE CASTS 1 /uL (0-3.1); URINE APPEARANCE CLOUDY; URINE BACTERIA 5931 /uL (0-1359); URINE BILIRUBIN NEGATIVE (NEGATIVE); URINE COLOR YELLOW; URINE GLUCOSE (UA) NEGATIVE (NEGATIVE); URINE KETONE NEGATIVE (NEGATIVE); URINE LEUK ESTERASE 3+ (NEGATIVE); URINE NITRITE POSITIVE (NEGATIVE); URINE PROTEIN TRACE (NEGATIVE); URINE RBC 31 /uL (0-23.9); URINE UROBILINOGEN 0.2 mg/dL (0.2-1.0); URINE WBC 3169 /uL (0-25.8)
[2021-03-02] MEDS ORDERED: CEFTRIAXONE 1 GM in DEXTROSE 5%-WATER - 100 ML IVPB ONE (17:09)
[2021-03-02] MEDS ORDERED: CEFTRIAXONE 1 GM/50 ML BAG ONE (17:23)
[2021-03-03] MEDS ORDERED: INSULIN SLIDING SCALE (NOVOLOG) 1 VIAL SQ SCH (07:00)
[2021-03-03] MEDS: ISOSORBIDE MONONITRATE 30 MG TAB.SR.24H (FP) PO SCH (07:10)
[2021-03-03 07:56] LABS: BASO % 1.6 % (0-2.0); HEMATOCRIT 40.7 % (32.4-45.2); HEMOGLOBIN 13.7 GM/dL (10.7-15.3); LYMPH % 14.9 % (8-40); MCH 29.8 pg (25.7-33.7); MCHC 33.8 g/dl (32.0-36.0); MEAN CELL VOLUME 88.2 fl (80-96); MEAN PLT VOLUME 8.4 fl (7.5-11.1); MONO % 12.3 % (3.8-10.2); NEUT % 69.2 % (42.8-82.8); PLATELET COUNT 157 10^3/uL (134-434); RBC 4.61 M/mm3 (3.60-5.2); RDW 15.4 % (11.6-15.6); WHITE BLOOD COUNT 4.4 K/mm3 (4.0-10.0)
[2021-03-03] MEDS ORDERED: ISOSORBIDE MONONITRATE 60 MG TAB.SR.24H (FP) PO ONE (08:09)
[2021-03-03 08:16] LABS: MAGNESIUM 1.9 mg/dL (1.8-2.4)
[2021-03-03 08:17] LABS: PHOSPHOROUS 2.9 mg/dL (2.5-4.9)
[2021-03-03] MEDS: CEFTRIAXONE 1 GM in DEXTROSE 5%-WATER - 50 ML IVPB SCH (10:00)
[2021-03-03] MEDS ORDERED: CEFTRIAXONE 1,000 GM in DEXTROSE 5%-WATER - 50 ML IVPB SCH (10:00)
[2021-03-03] MEDS ORDERED: ENOXAPARIN NA (PORCINE) 40 MG/0.4 ML DISP.SYRIN SQ SCH (10:00)
[2021-03-03] MEDS ORDERED: ATORVASTATIN PO SCH (10:00)
[2021-03-03] MEDS: ATORVASTATIN CA 80 MG TABLET (FP) PO SCH (10:00)
[2021-03-03] MEDS: LISINOPRIL 10 MG TABLET PO SCH (10:00)
[2021-03-03] MEDS: SERTRALINE HCL 50 MG TABLET (FP) PO SCH (10:00)
[2021-03-03] MEDS ORDERED: ATORVASTATIN CA 80 MG TABLET (FP) ONE (10:40)
[2021-03-03] MEDS ORDERED: LISINOPRIL 5 MG TABLET ONE (10:40)
[2021-03-03] MEDS ORDERED: CEFTRIAXONE 1 GM/50 ML BAG ONE (10:41)
[2021-03-03] MEDS ORDERED: ENOXAPARIN NA (PORCINE) 40 MG/0.4 ML DISP.SYRIN SQ ONE ×2 (10:41→21:48)
[2021-03-03] MEDS ORDERED: SERTRALINE HCL 50 MG TABLET (FP) ONE (10:42)
[2021-03-03] MEDS: INSULIN SLIDING SCALE (NOVOLOG) 1 VIAL SQ SCH ×2 (13:30→17:21)
[2021-03-03] MEDS ORDERED: FAMOTIDINE 20 MG TABLET ONE (21:48)
[2021-03-03] MEDS: ENOXAPARIN NA (PORCINE) 40 MG/0.4 ML DISP.SYRIN SQ SCH (22:03)
[2021-03-04] MEDS: INSULIN SLIDING SCALE (NOVOLOG) 1 VIAL SQ SCH ×3 (06:21→17:15)
[2021-03-04] MEDS: ISOSORBIDE MONONITRATE 30 MG TAB.SR.24H (FP) PO SCH (06:21)
[2021-03-04] MEDS: ACETAMINOPHEN 325 MG TABLET (FP) PO PRN ×2 (06:29→14:40)
[2021-03-04 07:14] LABS: HEMATOCRIT 43.2 % (32.4-45.2); HEMOGLOBIN 14.6 GM/dL (10.7-15.3); MCH 29.9 pg (25.7-33.7); MCHC 33.9 g/dl (32.0-36.0); MEAN CELL VOLUME 88.2 fl (80-96); MEAN PLT VOLUME 8.6 fl (7.5-11.1); PLATELET COUNT 160 10^3/uL (134-434); RDW 15.7 % (11.6-15.6); WHITE BLOOD COUNT 8.7 K/mm3 (4.0-10.0)
[2021-03-04 07:25] LABS: BLOOD UREA NITROGEN 17.9 mg/dL (7-18)
[2021-03-04 07:27] LABS: CALCIUM 8.9 mg/dL (8.5-10.1); MAGNESIUM 1.8 mg/dL (1.8-2.4)
[2021-03-04 07:28] LABS: PHOSPHOROUS 2.9 mg/dL (2.5-4.9)
[2021-03-04] MEDS ORDERED: DEXTROSE 5%-WATER - 50 ML IVPB ONE ×2 (09:35→12:22)
[2021-03-04] MEDS ORDERED: cefTRIAXone SODIUM 1 GM VIAL ONE (09:35)
[2021-03-04] MEDS ORDERED: FLU VACC QS2021-22(6MOS UP)/PF 60 MCG/0.5 ML SYRINGE IM ONE (10:00)
[2021-03-04] MEDS: SERTRALINE HCL 50 MG TABLET (FP) PO SCH (10:13)
[2021-03-04] MEDS: ATORVASTATIN CA 80 MG TABLET (FP) PO SCH (10:13)
[2021-03-04] MEDS: LISINOPRIL 10 MG TABLET PO SCH (10:13)
[2021-03-04] MEDS: FAMOTIDINE 20 MG TABLET PO SCH ×2 (10:14→23:38)
[2021-03-04] MEDS: ENOXAPARIN NA (PORCINE) 40 MG/0.4 ML DISP.SYRIN SQ SCH ×2 (10:16→23:38)
[2021-03-04] MEDS: CEFTRIAXONE 1 GM in DEXTROSE 5%-WATER - 50 ML IVPB SCH (10:16)
[2021-03-04] MEDS ORDERED: VANCOMYCIN 1 GM in D5W (PRE-DOCKED) 1,000 MG/250 ML IVPB ONE (11:30)
[2021-03-04] MEDS ORDERED: PIPERACILLIN/TAZOBACTAM 3.375 GM VIAL IVPB ONE (12:22)
[2021-03-04] MEDS ORDERED: PIPERACILLIN/TAZOB 3.375 GM 3.375 GM in DEXTROSE 5%-WATER - 50 ML IVPB SCH (13:00)
[2021-03-05] MEDS ORDERED: PIPERACILLIN/TAZOBACTAM 3.375 GM VIAL IVPB ONE ×3 (01:21→17:24)
[2021-03-05] MEDS ORDERED: DEXTROSE 5%-WATER - 50 ML IVPB ONE ×3 (01:21→17:25)
[2021-03-05] MEDS: PIPERACILLIN/TAZOB 3.375 GM 3.375 GM in DEXTROSE 5%-WATER - 50 ML IVPB SCH ×4 (02:51→18:21)
[2021-03-05] MEDS: INSULIN SLIDING SCALE (NOVOLOG) 1 VIAL SQ SCH ×3 (07:15→18:21)
[2021-03-05] MEDS: ISOSORBIDE MONONITRATE 30 MG TAB.SR.24H (FP) PO SCH (07:15)
[2021-03-05 07:25] LABS: ALBUMIN 2.8 g/dl (3.4-5.0); BLOOD UREA NITROGEN 16.2 mg/dL (7-18)
[2021-03-05 07:29] LABS: BASO % 0.3 % (0-2.0); BILIRUBIN,TOTAL 1.3 mg/dL (0.2-1); CALCIUM 8.7 mg/dL (8.5-10.1); EOS % 0.2 % (0-4.5); HEMATOCRIT 40.7 % (32.4-45.2); HEMOGLOBIN 13.9 GM/dL (10.7-15.3); LYMPH % 11.9 % (8-40); MCH 30.1 pg (25.7-33.7); MCHC 34.1 g/dl (32.0-36.0); MEAN CELL VOLUME 88.2 fl (80-96); MEAN PLT VOLUME 9.1 fl (7.5-11.1); MONO % 8.4 % (3.8-10.2); NEUT % 79.2 % (42.8-82.8); PLATELET COUNT 145 10^3/uL (134-434); RBC 4.62 M/mm3 (3.60-5.2); RDW 15.1 % (11.6-15.6); WHITE BLOOD COUNT 7.2 K/mm3 (4.0-10.0)
[2021-03-05 07:31] LABS: TOT PROT 6.1 g/dl (6.4-8.2)
[2021-03-05] MEDS: ATORVASTATIN CA 80 MG TABLET (FP) PO SCH (09:40)
[2021-03-05] MEDS: ENOXAPARIN NA (PORCINE) 40 MG/0.4 ML DISP.SYRIN SQ SCH ×2 (09:40→21:06)
[2021-03-05] MEDS: LISINOPRIL 10 MG TABLET PO SCH (09:41)
[2021-03-05] MEDS: SERTRALINE HCL 50 MG TABLET (FP) PO SCH (09:41)
[2021-03-05] MEDS: FAMOTIDINE 20 MG TABLET PO SCH ×3 (09:41→21:06)
[2021-03-05] MEDS ORDERED: VANCOMYCIN 1 GM in D5W (PRE-DOCKED) 1,000 MG/250 ML IVPB SCH (10:00)
[2021-03-05] MEDS ORDERED: POTASSIUM CHLORIDE TABS 20 MEQ TABLET.ER (FP) PO ONE (12:45)
[2021-03-05] MEDS: DEXAMETHASONE SOD PHOSPHATE 4 MG/1 ML VIAL IVPUSH SCH (13:33)
[2021-03-05] MEDS ORDERED: REMDESIVIR 200 MG in SODIUM CHLORIDE 250 ML IVPB ONE (14:00)
[2021-03-05] MEDS ORDERED: PIPERACILLIN/TAZOB 3.375 GM 3.375 GM in DEXTROSE 5%-WATER - 50 ML IVPB SCH (18:00)
[2021-03-05] MEDS ORDERED: guaiFENesin/CODEINE 5 ML UNIT-DOSE CUPS PO ONE (21:29)
[2021-03-06] MEDS ORDERED: DEXTROSE 5%-WATER - 50 ML IVPB ONE ×2 (00:58→10:26)
[2021-03-06] MEDS ORDERED: PIPERACILLIN/TAZOBACTAM 3.375 GM VIAL IVPB ONE ×2 (00:58→10:26)
[2021-03-06] MEDS: PIPERACILLIN/TAZOB 3.375 GM 3.375 GM in DEXTROSE 5%-WATER - 50 ML IVPB SCH ×2 (01:17→10:34)
[2021-03-06] MEDS: ISOSORBIDE MONONITRATE 30 MG TAB.SR.24H (FP) PO SCH (06:18)
[2021-03-06] MEDS: INSULIN SLIDING SCALE (NOVOLOG) 1 VIAL SQ SCH ×3 (06:19→17:00)
[2021-03-06 07:13] LABS: HEMATOCRIT 38.1 % (32.4-45.2); HEMOGLOBIN 13.4 GM/dL (10.7-15.3); MCH 30.6 pg (25.7-33.7); MCHC 35.1 g/dl (32.0-36.0); MEAN CELL VOLUME 87.2 fl (80-96); MEAN PLT VOLUME 8.6 fl (7.5-11.1); PLATELET COUNT 170 10^3/uL (134-434); RBC 4.37 M/mm3 (3.60-5.2); RDW 15.4 % (11.6-15.6); WHITE BLOOD COUNT 5.2 K/mm3 (4.0-10.0)
[2021-03-06 07:42] LABS: ALBUMIN 2.6 g/dl (3.4-5.0); CALCIUM 8.8 mg/dL (8.5-10.1)
[2021-03-06 07:43] LABS: BLOOD UREA NITROGEN 22.4 mg/dL (7-18)
[2021-03-06 07:47] LABS: BILIRUBIN,TOTAL 0.7 mg/dL (0.2-1); TOT PROT 6.1 g/dl (6.4-8.2)
[2021-03-06] MEDS ORDERED: ALBUTEROL SO4 HFA INHALER IH PRN (08:00)
[2021-03-06] MEDS: ATORVASTATIN CA 80 MG TABLET (FP) PO SCH (10:32)
[2021-03-06] MEDS: ENOXAPARIN NA (PORCINE) 40 MG/0.4 ML DISP.SYRIN SQ SCH ×2 (10:33→21:08)
[2021-03-06] MEDS: FAMOTIDINE 20 MG TABLET PO SCH ×2 (10:33→21:08)
[2021-03-06] MEDS: LISINOPRIL 10 MG TABLET PO SCH (10:33)
[2021-03-06] MEDS: SERTRALINE HCL 50 MG TABLET (FP) PO SCH (10:33)
[2021-03-06] MEDS: DEXAMETHASONE SOD PHOSPHATE 4 MG/1 ML VIAL IVPUSH SCH (10:34)
[2021-03-06] MEDS: REMDESIVIR 100 MG in SODIUM CHLORIDE 250 ML IVPB SCH (14:00)
[2021-03-07] MEDS: ISOSORBIDE MONONITRATE 30 MG TAB.SR.24H (FP) PO SCH (06:00)
[2021-03-07] MEDS: INSULIN SLIDING SCALE (NOVOLOG) 1 VIAL SQ SCH ×3 (06:29→16:46)
[2021-03-07 08:18] LABS: HEMATOCRIT 37.5 % (32.4-45.2); HEMOGLOBIN 12.7 GM/dL (10.7-15.3); MCH 29.8 pg (25.7-33.7); MCHC 33.9 g/dl (32.0-36.0); MEAN CELL VOLUME 87.9 fl (80-96); MEAN PLT VOLUME 8.1 fl (7.5-11.1); PLATELET COUNT 189 10^3/uL (134-434); RBC 4.26 M/mm3 (3.60-5.2); RDW 15.2 % (11.6-15.6); WHITE BLOOD COUNT 6.6 K/mm3 (4.0-10.0)
[2021-03-07 08:38] LABS: BLOOD UREA NITROGEN 22.7 mg/dL (7-18); CALCIUM 8.9 mg/dL (8.5-10.1)
[2021-03-07 08:41] LABS: CREATININE 0.9 mg/dL (0.55-1.3)
[2021-03-07 08:43] LABS: BILIRUBIN,TOTAL 0.5 mg/dL (0.2-1); TOT PROT 5.9 g/dl (6.4-8.2)
[2021-03-07 08:48] LABS: ALBUMIN 2.8 g/dl (3.4-5.0)
[2021-03-07] MEDS: ATORVASTATIN CA 80 MG TABLET (FP) PO SCH (10:11)
[2021-03-07] MEDS: SERTRALINE HCL 50 MG TABLET (FP) PO SCH (10:11)
[2021-03-07] MEDS: LISINOPRIL 10 MG TABLET PO SCH (10:11)
[2021-03-07] MEDS: FAMOTIDINE 20 MG TABLET PO SCH ×2 (10:11→21:06)
[2021-03-07] MEDS: ENOXAPARIN NA (PORCINE) 40 MG/0.4 ML DISP.SYRIN SQ SCH ×2 (10:12→21:07)
[2021-03-07] MEDS: DEXAMETHASONE SOD PHOSPHATE 4 MG/1 ML VIAL IVPUSH SCH (10:12)
[2021-03-07] MEDS: REMDESIVIR 100 MG in SODIUM CHLORIDE 250 ML IVPB SCH (15:06)
[2021-03-08] MEDS ORDERED: LISINOPRIL 10 MG TABLET PO ONE (03:18)
[2021-03-08] MEDS: ISOSORBIDE MONONITRATE 30 MG TAB.SR.24H (FP) PO SCH (06:08)
[2021-03-08] MEDS: INSULIN SLIDING SCALE (NOVOLOG) 1 VIAL SQ SCH ×3 (06:08→17:21)
[2021-03-08 07:41] LABS: HEMATOCRIT 40.5 % (32.4-45.2); HEMOGLOBIN 13.6 GM/dL (10.7-15.3); MCH 29.9 pg (25.7-33.7); MCHC 33.6 g/dl (32.0-36.0); MEAN PLT VOLUME 8.2 fl (7.5-11.1); PLATELET COUNT 199 10^3/uL (134-434); RBC 4.55 M/mm3 (3.60-5.2); RDW 15.4 % (11.6-15.6); WHITE BLOOD COUNT 5.9 K/mm3 (4.0-10.0)
[2021-03-08 08:08] LABS: CALCIUM 8.9 mg/dL (8.5-10.1)
[2021-03-08 08:12] LABS: CREATININE 0.9 mg/dL (0.55-1.3)
[2021-03-08 08:14] LABS: BILIRUBIN,TOTAL 0.5 mg/dL (0.2-1); TOT PROT 6.1 g/dl (6.4-8.2)
[2021-03-08 08:26] LABS: ALBUMIN 3.1 g/dl (3.4-5.0)
[2021-03-08] MEDS: LISINOPRIL 10 MG TABLET PO SCH (09:24)
[2021-03-08] MEDS: SERTRALINE HCL 50 MG TABLET (FP) PO SCH (09:24)
[2021-03-08] MEDS: ATORVASTATIN CA 80 MG TABLET (FP) PO SCH (09:24)
[2021-03-08] MEDS: FAMOTIDINE 20 MG TABLET PO SCH ×2 (09:24→21:02)
[2021-03-08] MEDS: DEXAMETHASONE SOD PHOSPHATE 4 MG/1 ML VIAL IVPUSH SCH (09:25)
[2021-03-08] MEDS: ENOXAPARIN NA (PORCINE) 40 MG/0.4 ML DISP.SYRIN SQ SCH ×2 (09:25→21:02)
[2021-03-08] MEDS: REMDESIVIR 100 MG in SODIUM CHLORIDE 250 ML IVPB SCH (14:32)
[2021-03-09] MEDS ORDERED: amLODIPine BESYLATE 5 MG TABLET (FP) PO ONE (02:57)
[2021-03-09] MEDS ORDERED: amLODIPine BESYLATE 2.5 MG TABLET (FP) PO ONE (02:57)
[2021-03-09] MEDS: INSULIN SLIDING SCALE (NOVOLOG) 1 VIAL SQ SCH ×3 (06:03→17:20)
[2021-03-09] MEDS: ISOSORBIDE MONONITRATE 30 MG TAB.SR.24H (FP) PO SCH (06:03)
[2021-03-09] MEDS ORDERED: PT OWN MED DRAWER 7, Y5N ONE (06:19)
[2021-03-09 08:33] LABS: HEMATOCRIT 40.7 % (32.4-45.2); HEMOGLOBIN 13.2 GM/dL (10.7-15.3); MCH 28.8 pg (25.7-33.7); MCHC 32.5 g/dl (32.0-36.0); MEAN CELL VOLUME 88.6 fl (80-96); MEAN PLT VOLUME 8.5 fl (7.5-11.1); PLATELET COUNT 223 10^3/uL (134-434); RBC 4.59 M/mm3 (3.60-5.2); RDW 15.6 % (11.6-15.6); WHITE BLOOD COUNT 6.5 K/mm3 (4.0-10.0)
[2021-03-09 08:53] LABS: ALBUMIN 2.8 g/dl (3.4-5.0); CALCIUM 8.6 mg/dL (8.5-10.1)
[2021-03-09 08:54] LABS: BLOOD UREA NITROGEN 19.6 mg/dL (7-18)
[2021-03-09 08:57] LABS: CREATININE 0.8 mg/dL (0.55-1.3)
[2021-03-09 08:58] LABS: BILIRUBIN,TOTAL 0.6 mg/dL (0.2-1)
[2021-03-09] MEDS: DEXAMETHASONE SOD PHOSPHATE 4 MG/1 ML VIAL IVPUSH SCH (09:53)
[2021-03-09] MEDS: ENOXAPARIN NA (PORCINE) 40 MG/0.4 ML DISP.SYRIN SQ SCH ×2 (09:53→22:58)
[2021-03-09] MEDS: ATORVASTATIN CA 80 MG TABLET (FP) PO SCH (09:54)
[2021-03-09] MEDS: SERTRALINE HCL 50 MG TABLET (FP) PO SCH (09:54)
[2021-03-09] MEDS: FAMOTIDINE 20 MG TABLET PO SCH ×2 (09:54→23:02)
[2021-03-09] MEDS: LISINOPRIL 10 MG TABLET PO SCH (09:58)
[2021-03-09] MEDS: REMDESIVIR 100 MG in SODIUM CHLORIDE 250 ML IVPB SCH (15:00)
[2021-03-10] MEDS: INSULIN SLIDING SCALE (NOVOLOG) 1 VIAL SQ SCH ×3 (07:41→17:05)
[2021-03-10] MEDS: ISOSORBIDE MONONITRATE 30 MG TAB.SR.24H (FP) PO SCH (07:44)
[2021-03-10 08:07] LABS: HEMATOCRIT 41.7 % (32.4-45.2); HEMOGLOBIN 13.7 GM/dL (10.7-15.3); MCHC 32.8 g/dl (32.0-36.0); MEAN CELL VOLUME 88.6 fl (80-96); MEAN PLT VOLUME 8.6 fl (7.5-11.1); PLATELET COUNT 219 10^3/uL (134-434); RBC 4.71 M/mm3 (3.60-5.2); RDW 15.3 % (11.6-15.6); WHITE BLOOD COUNT 7.9 K/mm3 (4.0-10.0)
[2021-03-10 08:08] LABS: BLOOD UREA NITROGEN 22.3 mg/dL (7-18); CALCIUM 8.7 mg/dL (8.5-10.1)
[2021-03-10 08:11] LABS: CREATININE 0.9 mg/dL (0.55-1.3)
[2021-03-10 08:12] LABS: BILIRUBIN,TOTAL 0.7 mg/dL (0.2-1); TOT PROT 6.3 g/dl (6.4-8.2)
[2021-03-10] MEDS: SERTRALINE HCL 50 MG TABLET (FP) PO SCH (09:16)
[2021-03-10] MEDS: FAMOTIDINE 20 MG TABLET PO SCH ×2 (09:16→21:40)
[2021-03-10] MEDS: ATORVASTATIN CA 80 MG TABLET (FP) PO SCH (09:16)
[2021-03-10] MEDS: ENOXAPARIN NA (PORCINE) 40 MG/0.4 ML DISP.SYRIN SQ SCH ×2 (09:16→21:38)
[2021-03-10] MEDS: LISINOPRIL 10 MG TABLET PO SCH (09:16)
[2021-03-10] MEDS: DEXAMETHASONE SOD PHOSPHATE 4 MG/1 ML VIAL IVPUSH SCH (09:16)
[2021-03-11] MEDS: INSULIN SLIDING SCALE (NOVOLOG) 1 VIAL SQ SCH ×3 (06:00→18:29)
[2021-03-11] MEDS: ISOSORBIDE MONONITRATE 30 MG TAB.SR.24H (FP) PO SCH (06:00)
[2021-03-11 08:25] LABS: HEMATOCRIT 39.5 % (32.4-45.2); HEMOGLOBIN 13.4 GM/dL (10.7-15.3); MCH 29.6 pg (25.7-33.7); MEAN CELL VOLUME 87.3 fl (80-96); PLATELET COUNT 245 10^3/uL (134-434); RBC 4.53 M/mm3 (3.60-5.2); RDW 15.4 % (11.6-15.6); WHITE BLOOD COUNT 7.6 K/mm3 (4.0-10.0)
[2021-03-11] MEDS: ENOXAPARIN NA (PORCINE) 40 MG/0.4 ML DISP.SYRIN SQ SCH ×2 (09:03→21:36)
[2021-03-11] MEDS: DEXAMETHASONE SOD PHOSPHATE 4 MG/1 ML VIAL IVPUSH SCH (09:03)
[2021-03-11] MEDS: SERTRALINE HCL 50 MG TABLET (FP) PO SCH (09:04)
[2021-03-11] MEDS: LISINOPRIL 10 MG TABLET PO SCH (09:04)
[2021-03-11] MEDS: ATORVASTATIN CA 80 MG TABLET (FP) PO SCH (09:04)
[2021-03-11] MEDS: FAMOTIDINE 20 MG TABLET PO SCH ×2 (09:04→21:36)
[2021-03-11 09:14] LABS: ALBUMIN 2.8 g/dl (3.4-5.0); CALCIUM 8.8 mg/dL (8.5-10.1)
[2021-03-11 09:15] LABS: BLOOD UREA NITROGEN 20.4 mg/dL (7-18)
[2021-03-11 09:17] LABS: CREATININE 0.8 mg/dL (0.55-1.3)
[2021-03-11 09:19] LABS: BILIRUBIN,TOTAL 0.5 mg/dL (0.2-1); TOT PROT 5.7 g/dl (6.4-8.2)
[2021-03-11] MEDS ORDERED: PT OWN MED DRAWER 7, Y5N ONE (12:24)
[2021-03-11 19:26] VITALS: TEMP 98.6
[2021-03-12] MEDS: ISOSORBIDE MONONITRATE 30 MG TAB.SR.24H (FP) PO SCH (06:44)
[2021-03-12] MEDS: INSULIN SLIDING SCALE (NOVOLOG) 1 VIAL SQ SCH ×2 (06:44→12:02)
[2021-03-12 09:21] VITALS: BP 150/76; PULSE 58
[2021-03-12] MEDS: DEXAMETHASONE SOD PHOSPHATE 4 MG/1 ML VIAL IVPUSH SCH (09:38)
[2021-03-12] MEDS: ATORVASTATIN CA 80 MG TABLET (FP) PO SCH (09:39)
[2021-03-12] MEDS: LISINOPRIL 10 MG TABLET PO SCH (09:39)
[2021-03-12] MEDS: ENOXAPARIN NA (PORCINE) 40 MG/0.4 ML DISP.SYRIN SQ SCH (09:39)
[2021-03-12] MEDS: SERTRALINE HCL 50 MG TABLET (FP) PO SCH (09:39)
[2021-03-12] MEDS: FAMOTIDINE 20 MG TABLET PO SCH (09:39)
== END 2021-03-12 15:08 | DRG 871 ==
LOC: JER 13:34 → JERBED 15:54 → J4W 03-03 23:42
PROVIDERS: ADMIT Internal Medicine; ATTEND Internal Medicine
PROC: XW033E5 Introduction of Remdesivir Anti-infective into Peripheral Vein, Percutaneous Approach, New Technology Group 5 (ICD-10-PCS; principal; 2021-03-05)
PROC: 3E0333Z Introduction of Anti-inflammatory into Peripheral Vein, Percutaneous Approach (ICD-10-PCS; 2021-03-05)
DX: A41.89 Other specified sepsis (principal); U07.1 COVID-19; J12.82 Pneumonia due to coronavirus disease 2019; J96.01 Acute respiratory failure with hypoxia; G93.41 Metabolic encephalopathy; Z68.43 Body mass index [BMI] 50.0-59.9, adult; I69.351 Hemiplegia and hemiparesis following cerebral infarction affecting right dominant side; I50.30 Unspecified diastolic (congestive) heart failure; N39.0 Urinary tract infection, site not specified; R47.01 Aphasia; E03.9 Hypothyroidism, unspecified; I25.10 Atherosclerotic heart disease of native coronary artery without angina pectoris; J44.9 Chronic obstructive pulmonary disease, unspecified; E11.9 Type 2 diabetes mellitus without complications; I48.0 Paroxysmal atrial fibrillation; E78.5 Hyperlipidemia, unspecified; E66.01 Morbid (severe) obesity due to excess calories; G47.30 Sleep apnea, unspecified; F41.9 Anxiety disorder, unspecified; N63.0 Unspecified lump in unspecified breast; K80.20 Calculus of gallbladder without cholecystitis without obstruction; E83.42 Hypomagnesemia; I11.0 Hypertensive heart disease with heart failure; B96.20 Unspecified Escherichia coli [E. coli] as the cause of diseases classified elsewhere; Z95.5 Presence of coronary angioplasty implant and graft
CPT/HCPCS: 36415; 70450-TC; 71045-TC-FY; 80048; 80053; 81003; 82550; 82962; 83735; 84100; 84484; 85025; 85027; 85379; 86140; 87040; 87086; 87186; 87804; 87807; 93005; 93010; 97116-GP; 97162-GP; 99285-25; C9399; C9803; U0003; U0005

== ENCOUNTER 2021-09-12 18:45 | Inpatient (IN) | payer OTHER ==
[2021-09-12] MEDS ORDERED: LACTATED RINGERS SOLUTION 1000 ML INFUS.BAG IV ONE ×2 (19:43→21:36)
[2021-09-12] MEDS ORDERED: ACETAMINOPHEN 1000 MG/100 ML BAG IVPB ONE (19:43)
[2021-09-12] MEDS ORDERED: ACETAMINOPHEN INJECTION 100 ML IVPB ONE (20:03)
[2021-09-12 20:37] LABS: BASO % 0.3 % (0-2.0); HEMATOCRIT 46.3 % (32.4-45.2); HEMOGLOBIN 15.6 GM/dL (10.7-15.3); LYMPH % 4.9 % (8-40); MCH 29.7 pg (25.7-33.7); MCHC 33.8 g/dl (32.0-36.0); MEAN PLT VOLUME 8.4 fl (7.5-11.1); MONO % 6.1 % (3.8-10.2); NEUT % 88.7 % (42.8-82.8); PLATELET COUNT 256 10^3/uL (134-434); RBC 5.26 M/mm3 (3.60-5.2); RDW 14.9 % (11.6-15.6); WHITE BLOOD COUNT 12.8 K/mm3 (4.0-10.0)
[2021-09-12 20:47] LABS: EPI CELLS 11 /uL (0-25.1); HYALINE CASTS 14 /uL (0-3.1); PH,URINE 5.5 (5.0-8.0); URINE APPEARANCE CLOUDY; URINE BACTERIA >9,000 /uL (0-1359); URINE BILIRUBIN NEGATIVE (NEGATIVE); URINE COLOR DK YELLOW; URINE GLUCOSE (UA) NEGATIVE (NEGATIVE); URINE KETONE TRACE (NEGATIVE); URINE LEUK ESTERASE 2+ (NEGATIVE); URINE NITRITE POSITIVE (NEGATIVE); URINE PROTEIN 2+ (NEGATIVE); URINE RBC 9 /uL (0-23.9); URINE WBC 251 /uL (0-25.8)
[2021-09-12 21:03] LABS: ALBUMIN 3.4 g/dl (3.4-5.0); CALCIUM 9.2 mg/dL (8.5-10.1)
[2021-09-12 21:04] LABS: BLOOD UREA NITROGEN 21.4 mg/dL (7-18)
[2021-09-12 21:07] LABS: CREATININE 1.1 mg/dL (0.55-1.3)
[2021-09-12 21:08] LABS: BILIRUBIN,TOTAL 1.7 mg/dL (0.2-1)
[2021-09-12] MEDS ORDERED: CEFTRIAXONE 1,000 MG in DEXTROSE 5%-WATER - 50 ML IVPB ONE (21:11)
[2021-09-12 21:17] LABS: LACTIC ACID 3.1 mmol/L (0.4-2.0)
[2021-09-12] MEDS ORDERED: CEFTRIAXONE 1 GM/50 ML BAG ONE (21:41)
[2021-09-13] MEDS ORDERED: TRIMETHOBENZAMIDE HCL 200MG/2ML INJ IM PRN (00:41)
[2021-09-13] MEDS ORDERED: SODIUM CHLORIDE 1,000 ML IV SCH (01:15)
[2021-09-13] MEDS ORDERED: METOCLOPRAMIDE HCL INJECTION 10 MG/2 ML VIAL IVPUSH PRN (01:34)
[2021-09-13 01:37] LABS: VENOUS BASE EXCESS 1.1 mmol/L (-2-2); VENOUS O2 SATURATION 87.2 % (70-80); VENOUS PCO2 37.5 mmHg (38-52); VENOUS PH 7.441 (7.310-7.410)
[2021-09-13] MEDS ORDERED: PIPERACILLIN/TAZOB 4.5 GM 4.5 GM in DEXTROSE 5%-WATER 100 ML IVPB ONE (03:23)
[2021-09-13] MEDS ORDERED: PIPERACILLIN/TAZOB 4.5 GM 4.5 GM/100 ML BAG IVPB ONE (03:57)
[2021-09-13] MEDS ORDERED: INSULIN SLIDING SCALE (NOVOLOG) 1 VIAL SQ SCH (07:00)
[2021-09-13] MEDS ORDERED: SODIUM CHLORIDE 1,000 ML IV STA (08:36)
[2021-09-13 09:37] LABS: BASO % 0.1 % (0-2.0); EOS % 0.1 % (0-4.5); HEMATOCRIT 47.4 % (32.4-45.2); HEMOGLOBIN 16.2 GM/dL (10.7-15.3); LYMPH % 7.5 % (8-40); MCH 30.1 pg (25.7-33.7); MCHC 34.1 g/dl (32.0-36.0); MEAN CELL VOLUME 88.1 fl (80-96); MEAN PLT VOLUME 8.4 fl (7.5-11.1); MONO % 5.4 % (3.8-10.2); NEUT % 86.9 % (42.8-82.8); PLATELET COUNT 221 10^3/uL (134-434); RBC 5.39 M/mm3 (3.60-5.2); RDW 15.1 % (11.6-15.6); WHITE BLOOD COUNT 9.4 K/mm3 (4.0-10.0)
[2021-09-13] MEDS ORDERED: SERTRALINE HCL 50 MG TABLET (FP) PO SCH (10:00)
[2021-09-13] MEDS ORDERED: LISINOPRIL 10 MG TABLET PO SCH (10:00)
[2021-09-13] MEDS ORDERED: ENOXAPARIN NA (PORCINE) 40 MG/0.4 ML DISP.SYRIN SQ SCH ×2 (10:00)
[2021-09-13] MEDS ORDERED: FAMOTIDINE 20 MG TABLET PO SCH (10:00)
[2021-09-13] MEDS ORDERED: ISOSORBIDE MONONITRATE 30 MG TAB.SR.24H (FP) PO SCH (10:00)
[2021-09-13] MEDS ORDERED: CEFTRIAXONE 1 GM in DEXTROSE 5%-WATER - 50 ML IVPB SCH (10:00)
[2021-09-13 10:04] LABS: CALCIUM 9.3 mg/dL (8.5-10.1)
[2021-09-13 10:05] LABS: ALBUMIN 3.3 g/dl (3.4-5.0); BLOOD UREA NITROGEN 20.2 mg/dL (7-18); MAGNESIUM 1.9 mg/dL (1.8-2.4)
[2021-09-13 10:08] LABS: CREATININE 0.9 mg/dL (0.55-1.3); PHOSPHOROUS 3.5 mg/dL (2.5-4.9)
[2021-09-13 10:09] LABS: TOT PROT 6.6 g/dl (6.4-8.2)
[2021-09-13] MEDS ORDERED: DEXAMETHASONE SOD PHOSPHATE 4 MG/1 ML VIAL ONE (10:13)
[2021-09-13] MEDS ORDERED: KETOROLAC TROMETHAMINE 30 MG/1 ML VIAL ONE (10:13)
[2021-09-13] MEDS ORDERED: LIDOCAINE HCL 2% 100 MG/5 ML DISP.SYRIN ONE (10:13)
[2021-09-13] MEDS ORDERED: DESFLURANE GAS 240 ML BOTTLE IH ONE (10:13)
[2021-09-13] MEDS ORDERED: ROCURONIUM BROMIDE 50 MG/5 ML SYRINGE ONE (10:14)
[2021-09-13] MEDS ORDERED: SUCCINYLCHOLINE CHLORIDE 200 MG/10 ML SYRINGE ONE (10:14)
[2021-09-13] MEDS ORDERED: PROPOFOL 20 ML ONE ×2 (10:14→13:53)
[2021-09-13] MEDS ORDERED: MIDAZOLAM HCL 2 MG/2 ML SINGLE DOSE VIAL ONE (10:15)
[2021-09-13] MEDS ORDERED: BUPIVACAINE HCL/PF 0.25% (2.5MG/ML) 10 ML VIAL ONE (10:44)
[2021-09-13] MEDS ORDERED: cefOXitin SODIUM 2 GM VIAL (RESTRICTED TO ID) IVPB ONE ×2 (11:20→11:35)
[2021-09-13 11:38] LABS: INR 1.16 (0.83-1.09); PROTHROMBIN TIME (PATIENT) 13.4 SEC (9.7-13.0)
[2021-09-13 11:41] LABS: ACTIVATED PTT 31.1 SECONDS (25.2-36.5)
[2021-09-13] MEDS ORDERED: KETAMINE HCL 200 MG/20 ML VIAL ONE (12:56)
[2021-09-13] MEDS ORDERED: ACETAMINOPHEN INJECTION 100 ML IVPB ONE (14:17)
[2021-09-13] MEDS ORDERED: ACETAMINOPHEN 1000 MG/100 ML BAG IVPB PRN (14:20)
[2021-09-13] MEDS ORDERED: PROMETHAZINE HCL 25 MG/1 ML VIAL IVPUSH PRN (14:24)
[2021-09-13] MEDS ORDERED: ONDANSETRON 4 MG/2 ML VIAL IVPUSH PRN (14:24)
[2021-09-13] MEDS ORDERED: HYDROmorphone HCL CARPU-JECT 2 MG/1 ML DISP.SYRIN IVPUSH PRN ×2 (14:25)
[2021-09-13] MEDS ORDERED: FENTANYL CITRATE/PF 50 MCG/ML VIAL ONE (14:29)
[2021-09-13] MEDS ORDERED: LACTATED RINGERS SOLUTION 1,000 ML IV SCH (14:30)
[2021-09-13] MEDS ORDERED: HYDROmorphone HCl 2 MG/ML VIAL IVPUSH PRN ×2 (14:51→14:54)
[2021-09-13] MEDS: FAMOTIDINE 20 MG/50 ML IVPB 20 MG/50 ML MG IVPB SCH (21:38)
[2021-09-13] MEDS: HEPARIN NA (PORCINE) 5,000 UNITS/ML 1ML VIAL SQ SCH (21:39)
[2021-09-13] MEDS: SODIUM CHLORIDE 1,000 ML IV SCH (21:39)
[2021-09-13] MEDS ORDERED: ATORVASTATIN CA 80 MG TABLET (FP) PO SCH (22:00)
[2021-09-13] MEDS: INSULIN SLIDING SCALE (NOVOLOG) 1 VIAL SQ SCH (22:10)
[2021-09-14] MEDS: INSULIN SLIDING SCALE (NOVOLOG) 1 VIAL SQ SCH ×4 (06:51→21:49)
[2021-09-14 07:07] LABS: BASO % 0.2 % (0-2.0); EOS % 0.1 % (0-4.5); HEMOGLOBIN 13.3 GM/dL (10.7-15.3); MEAN PLT VOLUME 8.4 fl (7.5-11.1); MONO % 9.8 % (3.8-10.2); NEUT % 79.9 % (42.8-82.8); PLATELET COUNT 190 10^3/uL (134-434); RBC 4.43 M/mm3 (3.60-5.2); RDW 15.1 % (11.6-15.6); WHITE BLOOD COUNT 6.3 K/mm3 (4.0-10.0)
[2021-09-14 07:25] LABS: CALCIUM 8.1 mg/dL (8.5-10.1)
[2021-09-14 07:26] LABS: BLOOD UREA NITROGEN 17.7 mg/dL (7-18); MAGNESIUM 1.7 mg/dL (1.8-2.4)
[2021-09-14 07:29] LABS: CREATININE 0.8 mg/dL (0.55-1.3); PHOSPHOROUS 3.1 mg/dL (2.5-4.9)
[2021-09-14 07:31] LABS: ALBUMIN 2.4 g/dl (3.4-5.0); TOT PROT 5.2 g/dl (6.4-8.2)
[2021-09-14] MEDS ORDERED: DEXTROSE 5%-WATER - 50 ML IVPB ONE (09:48)
[2021-09-14] MEDS ORDERED: cefTRIAXone SODIUM 1 GM VIAL ONE (09:48)
[2021-09-14] MEDS: ISOSORBIDE MONONITRATE 30 MG TAB.SR.24H (FP) PO SCH (09:54)
[2021-09-14] MEDS: SERTRALINE HCL 50 MG TABLET (FP) PO SCH (09:54)
[2021-09-14] MEDS: HEPARIN NA (PORCINE) 5,000 UNITS/ML 1ML VIAL SQ SCH ×2 (09:54→21:44)
[2021-09-14] MEDS: FAMOTIDINE 20 MG/50 ML IVPB 20 MG/50 ML MG IVPB SCH ×2 (09:54→21:44)
[2021-09-14] MEDS ORDERED: FAMOTIDINE 20 MG TABLET PO SCH (10:00)
[2021-09-14] MEDS ORDERED: SERTRALINE HCL 50 MG TABLET (FP) PO SCH (10:00)
[2021-09-14] MEDS ORDERED: LISINOPRIL 10 MG TABLET PO SCH (10:00)
[2021-09-14] MEDS ORDERED: ISOSORBIDE MONONITRATE 30 MG TAB.SR.24H (FP) PO SCH (10:00)
[2021-09-14] MEDS ORDERED: ATORVASTATIN CA 80 MG TABLET (FP) PO SCH (10:00)
[2021-09-14] MEDS: CEFTRIAXONE 1 GM in DEXTROSE 5%-WATER - 50 ML IVPB SCH (12:00)
[2021-09-14] MEDS: SODIUM CHLORIDE 1,000 ML IV SCH ×2 (13:53→17:38)
[2021-09-14] MEDS: LABETALOL HCL 5 MG/1 ML (100MG/20 ML VIAL) IVPUSH PRN ×2 (13:53→20:19)
[2021-09-15] MEDS: INSULIN SLIDING SCALE (NOVOLOG) 1 VIAL SQ SCH ×4 (07:07→21:59)
[2021-09-15] MEDS ORDERED: cefTRIAXone SODIUM 1 GM VIAL ONE (08:31)
[2021-09-15] MEDS ORDERED: DEXTROSE 5%-WATER - 50 ML IVPB ONE (08:31)
[2021-09-15] MEDS: CEFTRIAXONE 1 GM in DEXTROSE 5%-WATER - 50 ML IVPB SCH (09:13)
[2021-09-15] MEDS: FAMOTIDINE 20 MG/50 ML IVPB 20 MG/50 ML MG IVPB SCH ×2 (09:13→22:45)
[2021-09-15] MEDS: HEPARIN NA (PORCINE) 5,000 UNITS/ML 1ML VIAL SQ SCH ×2 (09:13→22:44)
[2021-09-15] MEDS: SERTRALINE HCL 50 MG TABLET (FP) PO SCH (09:23)
[2021-09-15] MEDS: ISOSORBIDE MONONITRATE 30 MG TAB.SR.24H (FP) PO SCH (09:23)
[2021-09-15] MEDS: BACITRACIN 15 GM TUBE TOPICAL OINTMENT TP SCH ×2 (09:54→22:43)
[2021-09-15 13:36] LABS: BASO % 0.3 % (0-2.0); EOS % 4.4 % (0-4.5); HEMATOCRIT 36.3 % (32.4-45.2); HEMOGLOBIN 12.3 GM/dL (10.7-15.3); LYMPH % 12.9 % (8-40); MCH 30.7 pg (25.7-33.7); MCHC 33.8 g/dl (32.0-36.0); MEAN CELL VOLUME 90.9 fl (80-96); MEAN PLT VOLUME 8.4 fl (7.5-11.1); MONO % 8.5 % (3.8-10.2); NEUT % 73.9 % (42.8-82.8); PLATELET COUNT 193 10^3/uL (134-434); RBC 3.99 M/mm3 (3.60-5.2); RDW 15.1 % (11.6-15.6); WHITE BLOOD COUNT 7.6 K/mm3 (4.0-10.0)
[2021-09-15 13:53] LABS: ALBUMIN 2.1 g/dl (3.4-5.0); CREATININE 0.7 mg/dL (0.55-1.3); MAGNESIUM 1.9 mg/dL (1.8-2.4); PHOSPHOROUS 3.1 mg/dL (2.5-4.9); TOT PROT 5.1 g/dl (6.4-8.2)
[2021-09-15] MEDS: LABETALOL HCL 5 MG/1 ML (100MG/20 ML VIAL) IVPUSH PRN (14:37)
[2021-09-15] MEDS ORDERED: ENALAPRILAT DIHYDRATE 1.25 MG/1 ML VIAL IVPB PRN (14:38)
[2021-09-15] MEDS: SODIUM CHLORIDE 1,000 ML IV SCH ×2 (14:55→22:45)
[2021-09-16] MEDS: ENALAPRILAT DIHYDRATE 1.25 MG/1 ML VIAL IVPB PRN ×3 (00:01→17:12)
[2021-09-16] MEDS: LORazepam 2 MG/ML SDV VIAL IVPUSH ONE ×2 (00:03→00:09)
[2021-09-16] MEDS ORDERED: LABETALOL HCL 5 MG/1 ML (100MG/20 ML VIAL) IVPUSH ONE (01:08)
[2021-09-16] MEDS ORDERED: LORazepam 2 MG/ML SDV VIAL IVPUSH ONE ×2 (01:15→21:40)
[2021-09-16] MEDS ORDERED: hydrALAZINE HCL 20 MG/ML VIAL IVPUSH ONE ×4 (02:33→23:57)
[2021-09-16] MEDS: INSULIN SLIDING SCALE (NOVOLOG) 1 VIAL SQ SCH ×3 (06:57→17:36)
[2021-09-16 07:44] LABS: BASO % 0.5 % (0-2.0); EOS % 3.4 % (0-4.5); HEMATOCRIT 37.1 % (32.4-45.2); HEMOGLOBIN 12.6 GM/dL (10.7-15.3); LYMPH % 15.8 % (8-40); MCH 30.2 pg (25.7-33.7); MEAN CELL VOLUME 88.7 fl (80-96); MEAN PLT VOLUME 8.7 fl (7.5-11.1); MONO % 7.7 % (3.8-10.2); NEUT % 72.6 % (42.8-82.8); PLATELET COUNT 210 10^3/uL (134-434); RBC 4.19 M/mm3 (3.60-5.2); RDW 14.6 % (11.6-15.6)
[2021-09-16 07:59] LABS: CALCIUM 8.3 mg/dL (8.5-10.1)
[2021-09-16 08:00] LABS: ALBUMIN 2.4 g/dl (3.4-5.0); BLOOD UREA NITROGEN 9.1 mg/dL (7-18); MAGNESIUM 1.9 mg/dL (1.8-2.4)
[2021-09-16 08:03] LABS: CREATININE 0.5 mg/dL (0.55-1.3); PHOSPHOROUS 2.1 mg/dL (2.5-4.9)
[2021-09-16 08:04] LABS: BILIRUBIN,TOTAL 0.7 mg/dL (0.2-1); TOT PROT 5.8 g/dl (6.4-8.2)
[2021-09-16] MEDS ORDERED: cefTRIAXone SODIUM 1 GM VIAL ONE (08:49)
[2021-09-16] MEDS ORDERED: DEXTROSE 5%-WATER - 50 ML IVPB ONE (08:49)
[2021-09-16] MEDS: FAMOTIDINE 20 MG/50 ML IVPB 20 MG/50 ML MG IVPB SCH ×2 (09:10→22:19)
[2021-09-16] MEDS: BACITRACIN 15 GM TUBE TOPICAL OINTMENT TP SCH ×2 (09:11→22:17)
[2021-09-16] MEDS: HEPARIN NA (PORCINE) 5,000 UNITS/ML 1ML VIAL SQ SCH ×2 (09:11→22:17)
[2021-09-16] MEDS: CEFTRIAXONE 1 GM in DEXTROSE 5%-WATER - 50 ML IVPB SCH (09:11)
[2021-09-16] MEDS: ISOSORBIDE MONONITRATE 30 MG TAB.SR.24H (FP) PO SCH ×2 (09:11→15:50)
[2021-09-16] MEDS: SERTRALINE HCL 50 MG TABLET (FP) PO SCH (09:12)
[2021-09-16] MEDS: LISINOPRIL 10 MG TABLET PO SCH ×2 (09:26→15:50)
[2021-09-16] MEDS ORDERED: POTASSIUM PHOSPHATE 30 MM in SODIUM CHLORIDE 500 ML IVPB ONE (14:08)
[2021-09-16] MEDS ORDERED: POTASSIUM PHOSPHATE 30 MM in DEXTROSE 5%-WATER - 500 ML IVPB ONE (15:30)
[2021-09-16] MEDS: KCL 10 MEQ IVPB 10 MEQ/100 ML INFUS.BAG IVPB SCH ×3 (16:37→18:40)
[2021-09-16] MEDS: SODIUM CHLORIDE 1,000 ML IV SCH (17:12)
[2021-09-17] MEDS: INSULIN SLIDING SCALE (NOVOLOG) 1 VIAL SQ SCH ×5 (00:15→21:40)
[2021-09-17] MEDS: ENALAPRILAT DIHYDRATE 1.25 MG/1 ML VIAL IVPB PRN ×2 (03:44→07:58)
[2021-09-17 07:27] LABS: BASO % 0.3 % (0-2.0); EOS % 2.8 % (0-4.5); HEMATOCRIT 38.8 % (32.4-45.2); HEMOGLOBIN 13.3 GM/dL (10.7-15.3); LYMPH % 11.3 % (8-40); MCH 30.1 pg (25.7-33.7); MCHC 34.4 g/dl (32.0-36.0); MEAN CELL VOLUME 87.5 fl (80-96); MONO % 6.4 % (3.8-10.2); NEUT % 79.2 % (42.8-82.8); PLATELET COUNT 217 10^3/uL (134-434); RBC 4.44 M/mm3 (3.60-5.2); RDW 14.6 % (11.6-15.6); WHITE BLOOD COUNT 8.3 K/mm3 (4.0-10.0)
[2021-09-17 08:01] LABS: ALBUMIN 2.5 g/dl (3.4-5.0); BLOOD UREA NITROGEN 6.4 mg/dL (7-18); CALCIUM 8.6 mg/dL (8.5-10.1); MAGNESIUM 1.9 mg/dL (1.8-2.4)
[2021-09-17 08:04] LABS: CREATININE 0.5 mg/dL (0.55-1.3); PHOSPHOROUS 2.3 mg/dL (2.5-4.9)
[2021-09-17 08:05] LABS: BILIRUBIN,TOTAL 0.9 mg/dL (0.2-1); TOT PROT 6.1 g/dl (6.4-8.2)
[2021-09-17] MEDS ORDERED: cefTRIAXone SODIUM 1 GM VIAL ONE (09:48)
[2021-09-17] MEDS ORDERED: DEXTROSE 5%-WATER - 50 ML IVPB ONE (09:48)
[2021-09-17] MEDS: BACITRACIN 15 GM TUBE TOPICAL OINTMENT TP SCH ×3 (09:51→21:42)
[2021-09-17] MEDS: HEPARIN NA (PORCINE) 5,000 UNITS/ML 1ML VIAL SQ SCH ×2 (09:51→21:42)
[2021-09-17] MEDS: CEFTRIAXONE 1 GM in DEXTROSE 5%-WATER - 50 ML IVPB SCH (09:52)
[2021-09-17] MEDS: FAMOTIDINE 20 MG/50 ML IVPB 20 MG/50 ML MG IVPB SCH ×2 (09:52→21:42)
[2021-09-17] MEDS: ISOSORBIDE MONONITRATE 30 MG TAB.SR.24H (FP) PO SCH (09:52)
[2021-09-17] MEDS: LISINOPRIL 20 MG TABLET PO SCH (09:53)
[2021-09-17] MEDS: SERTRALINE HCL 50 MG TABLET (FP) PO SCH (09:54)
[2021-09-17] MEDS ORDERED: POTASSIUM PHOSPHATE 30 MM in DEXTROSE 5%-WATER - 500 ML IVPB ONE (13:30)
[2021-09-17] MEDS: SODIUM CHLORIDE 1,000 ML IV SCH (18:22)
[2021-09-17] MEDS: NAPH,MB-DB/K PH,MBDB POWDER PACKET PO SCH (21:42)
[2021-09-17] MEDS: MELATONIN 5 MG TABLETS PO SCH (21:42)
[2021-09-18 08:25] LABS: BASO % 0.6 % (0-2.0); EOS % 3.4 % (0-4.5); HEMATOCRIT 38.2 % (32.4-45.2); HEMOGLOBIN 13.1 GM/dL (10.7-15.3); MCHC 34.2 g/dl (32.0-36.0); MEAN CELL VOLUME 87.9 fl (80-96); MEAN PLT VOLUME 8.2 fl (7.5-11.1); MONO % 9.9 % (3.8-10.2); NEUT % 67.1 % (42.8-82.8); PLATELET COUNT 208 10^3/uL (134-434); RBC 4.35 M/mm3 (3.60-5.2); RDW 14.2 % (11.6-15.6); WHITE BLOOD COUNT 6.4 K/mm3 (4.0-10.0)
[2021-09-18] MEDS ORDERED: DEXTROSE 5%-WATER - 50 ML IVPB ONE (08:47)
[2021-09-18] MEDS ORDERED: cefTRIAXone SODIUM 1 GM VIAL ONE (08:47)
[2021-09-18 09:15] LABS: CHLORIDE 104 mmol/L (98-107); SODIUM 141 mmol/L (136-145)
[2021-09-18 09:17] LABS: CALCIUM 8.2 mg/dL (8.5-10.1)
[2021-09-18 09:18] LABS: ALBUMIN 2.3 g/dl (3.4-5.0); ANION GAP 13 MMOL/L (8-16); BLOOD UREA NITROGEN 7.6 mg/dL (7-18); CO2 24 mmol/L (21-32); GLUCOSE,RANDOM 100 mg/dL (74-106)
[2021-09-18 09:21] LABS: BILIRUBIN,TOTAL 0.6 mg/dL (0.2-1); CREATININE 0.6 mg/dL (0.55-1.3); PHOSPHOROUS 3.3 mg/dL (2.5-4.9); SGOT/AST 16 U/L (15-37); SGPT/ALT 18 U/L (13-61); TOT PROT 5.7 g/dl (6.4-8.2)
[2021-09-18 09:31] LABS: ALK PHOS 112 U/L (45-117)
[2021-09-18 09:39] LABS: CHOLESTEROL QNS mg/dL (50-200); HDL CHOLESTEROL QNS mg/dL (40-60); LDL CHOLESTEROL (ONLY SJRH) QNS mg/dL (5-100); N-TERMINAL BNP QNS pg/ml (5-450); TRIGLYCERIDES QNS mg/dL (0-150)
[2021-09-18] MEDS: BACITRACIN 15 GM TUBE TOPICAL OINTMENT TP SCH ×2 (09:46→22:09)
[2021-09-18] MEDS: HEPARIN NA (PORCINE) 5,000 UNITS/ML 1ML VIAL SQ SCH ×2 (09:46→22:10)
[2021-09-18] MEDS: CEFTRIAXONE 1 GM in DEXTROSE 5%-WATER - 50 ML IVPB SCH (09:47)
[2021-09-18] MEDS: LISINOPRIL 20 MG TABLET PO SCH (09:47)
[2021-09-18] MEDS: SERTRALINE HCL 50 MG TABLET (FP) PO SCH (09:47)
[2021-09-18] MEDS: ISOSORBIDE MONONITRATE 30 MG TAB.SR.24H (FP) PO SCH (09:47)
[2021-09-18] MEDS: NAPH,MB-DB/K PH,MBDB POWDER PACKET PO SCH ×2 (09:47→22:10)
[2021-09-18] MEDS: FAMOTIDINE 20 MG/50 ML IVPB 20 MG/50 ML MG IVPB SCH ×2 (09:47→22:25)
[2021-09-18] MEDS ORDERED: amLODIPine BESYLATE 5 MG TABLET (FP) PO ONE (14:14)
[2021-09-18] MEDS: INSULIN SLIDING SCALE (NOVOLOG) 1 VIAL SQ SCH ×2 (16:47→22:09)
[2021-09-18] MEDS: SODIUM CHLORIDE 1,000 ML IV SCH (16:55)
[2021-09-18] MEDS: MELATONIN 5 MG TABLETS PO SCH (22:10)
[2021-09-19] MEDS: INSULIN SLIDING SCALE (NOVOLOG) 1 VIAL SQ SCH ×6 (06:38→21:31)
[2021-09-19 07:34] LABS: HEMATOCRIT 34.5 % (32.4-45.2); HEMOGLOBIN 11.9 GM/dL (10.7-15.3); MCH 30.2 pg (25.7-33.7); MCHC 34.6 g/dl (32.0-36.0); MEAN CELL VOLUME 87.3 fl (80-96); MEAN PLT VOLUME 7.8 fl (7.5-11.1); PLATELET COUNT 221 10^3/uL (134-434); RBC 3.95 M/mm3 (3.60-5.2); RDW 14.6 % (11.6-15.6); WHITE BLOOD COUNT 5.8 K/mm3 (4.0-10.0)
[2021-09-19 08:37] LABS: CALCIUM 8.1 mg/dL (8.5-10.1)
[2021-09-19 08:38] LABS: ALBUMIN 2.2 g/dl (3.4-5.0); BLOOD UREA NITROGEN 6.9 mg/dL (7-18); MAGNESIUM 1.9 mg/dL (1.8-2.4)
[2021-09-19 08:41] LABS: BILIRUBIN,TOTAL 0.5 mg/dL (0.2-1); CREATININE 0.5 mg/dL (0.55-1.3); TOT PROT 5.3 g/dl (6.4-8.2)
[2021-09-19] MEDS ORDERED: cefTRIAXone SODIUM 1 GM VIAL ONE (09:37)
[2021-09-19] MEDS ORDERED: DEXTROSE 5%-WATER - 50 ML IVPB ONE (09:37)
[2021-09-19] MEDS: BACITRACIN 15 GM TUBE TOPICAL OINTMENT TP SCH ×2 (10:39→21:26)
[2021-09-19] MEDS: HEPARIN NA (PORCINE) 5,000 UNITS/ML 1ML VIAL SQ SCH ×2 (10:39→21:26)
[2021-09-19] MEDS: CEFTRIAXONE 1 GM in DEXTROSE 5%-WATER - 50 ML IVPB SCH (10:40)
[2021-09-19] MEDS: SERTRALINE HCL 50 MG TABLET (FP) PO SCH (10:40)
[2021-09-19] MEDS: ISOSORBIDE MONONITRATE 30 MG TAB.SR.24H (FP) PO SCH (10:41)
[2021-09-19] MEDS: NAPH,MB-DB/K PH,MBDB POWDER PACKET PO SCH (10:41)
[2021-09-19] MEDS: LISINOPRIL 20 MG TABLET PO SCH (10:44)
[2021-09-19] MEDS: FAMOTIDINE 20 MG/50 ML IVPB 20 MG/50 ML MG IVPB SCH ×2 (10:44→21:26)
[2021-09-19 12:40] VITALS: BMI 38.4
[2021-09-19] MEDS: amLODIPine BESYLATE 10 MG TABLET (FP) PO SCH (13:00)
[2021-09-19] MEDS: SODIUM CHLORIDE 1,000 ML IV SCH (15:20)
[2021-09-19] MEDS: MELATONIN 5 MG TABLETS PO SCH (21:26)
[2021-09-20] MEDS: INSULIN SLIDING SCALE (NOVOLOG) 1 VIAL SQ SCH ×4 (07:02→21:47)
[2021-09-20 07:25] LABS: HEMATOCRIT 34.8 % (32.4-45.2); HEMOGLOBIN 12.1 GM/dL (10.7-15.3); MCH 30.4 pg (25.7-33.7); MCHC 34.8 g/dl (32.0-36.0); MEAN CELL VOLUME 87.4 fl (80-96); MEAN PLT VOLUME 7.9 fl (7.5-11.1); PLATELET COUNT 238 10^3/uL (134-434); RBC 3.98 M/mm3 (3.60-5.2); RDW 14.5 % (11.6-15.6); WHITE BLOOD COUNT 5.8 K/mm3 (4.0-10.0)
[2021-09-20 07:44] LABS: MAGNESIUM 1.9 mg/dL (1.8-2.4)
[2021-09-20 07:45] LABS: ALBUMIN 2.2 g/dl (3.4-5.0)
[2021-09-20 07:46] LABS: BLOOD UREA NITROGEN 5.9 mg/dL (7-18); CALCIUM 8.3 mg/dL (8.5-10.1)
[2021-09-20 07:48] LABS: CREATININE 0.6 mg/dL (0.55-1.3)
[2021-09-20 07:49] LABS: PHOSPHOROUS 3.1 mg/dL (2.5-4.9)
[2021-09-20 07:50] LABS: TOT PROT 5.5 g/dl (6.4-8.2)
[2021-09-20 07:52] LABS: BILIRUBIN,TOTAL 0.5 mg/dL (0.2-1)
[2021-09-20] MEDS ORDERED: cefTRIAXone SODIUM 1 GM VIAL ONE (10:30)
[2021-09-20] MEDS ORDERED: DEXTROSE 5%-WATER - 50 ML IVPB ONE (10:30)
[2021-09-20] MEDS: HEPARIN NA (PORCINE) 5,000 UNITS/ML 1ML VIAL SQ SCH ×2 (10:36→21:36)
[2021-09-20] MEDS: LISINOPRIL 20 MG TABLET PO SCH (10:36)
[2021-09-20] MEDS: ISOSORBIDE MONONITRATE 30 MG TAB.SR.24H (FP) PO SCH (10:36)
[2021-09-20] MEDS: SERTRALINE HCL 50 MG TABLET (FP) PO SCH (10:36)
[2021-09-20] MEDS: amLODIPine BESYLATE 10 MG TABLET (FP) PO SCH (10:37)
[2021-09-20] MEDS: FAMOTIDINE 20 MG/50 ML IVPB 20 MG/50 ML MG IVPB SCH ×2 (10:37→21:36)
[2021-09-20] MEDS: BACITRACIN 15 GM TUBE TOPICAL OINTMENT TP SCH ×2 (10:37→21:37)
[2021-09-20] MEDS: CEFTRIAXONE 1 GM in DEXTROSE 5%-WATER - 50 ML IVPB SCH (10:37)
[2021-09-20] MEDS ORDERED: hydrALAZINE HCL 10 MG TABLET PO ONE (12:33)
[2021-09-20 14:26] LABS: N-TERMINAL BNP 2504.1 pg/ml (5-450)
[2021-09-20] MEDS ORDERED: ISOSORBIDE MONONITRATE 60 MG TAB.SR.24H (FP) PO ONE (16:34)
[2021-09-20] MEDS: hydrALAZINE HCL 25 MG TABLET (FP) PO SCH ×2 (18:15→21:36)
[2021-09-20] MEDS: MELATONIN 5 MG TABLETS PO SCH (21:36)
[2021-09-21] MEDS: hydrALAZINE HCL 25 MG TABLET (FP) PO SCH ×3 (06:06→21:18)
[2021-09-21] MEDS: INSULIN SLIDING SCALE (NOVOLOG) 1 VIAL SQ SCH ×4 (06:08→21:24)
[2021-09-21 07:11] LABS: HEMATOCRIT 32.6 % (32.4-45.2); MCH 29.7 pg (25.7-33.7); MCHC 33.8 g/dl (32.0-36.0); MEAN CELL VOLUME 87.9 fl (80-96); MEAN PLT VOLUME 8.3 fl (7.5-11.1); PLATELET COUNT 264 10^3/uL (134-434); RBC 3.71 M/mm3 (3.60-5.2); RDW 14.3 % (11.6-15.6); WHITE BLOOD COUNT 7.7 K/mm3 (4.0-10.0)
[2021-09-21 07:29] LABS: ALBUMIN 2.1 g/dl (3.4-5.0); BLOOD UREA NITROGEN 7.8 mg/dL (7-18); MAGNESIUM 1.7 mg/dL (1.8-2.4)
[2021-09-21 07:31] LABS: CREATININE 0.6 mg/dL (0.55-1.3); PHOSPHOROUS 2.5 mg/dL (2.5-4.9)
[2021-09-21 07:33] LABS: BILIRUBIN,TOTAL 0.5 mg/dL (0.2-1); TOT PROT 5.2 g/dl (6.4-8.2)
[2021-09-21] MEDS: FAMOTIDINE 20 MG/50 ML IVPB 20 MG/50 ML MG IVPB SCH ×2 (09:27→21:19)
[2021-09-21] MEDS: LISINOPRIL 20 MG TABLET PO SCH (09:28)
[2021-09-21] MEDS: ISOSORBIDE MONONITRATE 30 MG TAB.SR.24H (FP) PO SCH (09:28)
[2021-09-21] MEDS: amLODIPine BESYLATE 10 MG TABLET (FP) PO SCH (09:29)
[2021-09-21] MEDS: HEPARIN NA (PORCINE) 5,000 UNITS/ML 1ML VIAL SQ SCH ×2 (09:29→21:19)
[2021-09-21] MEDS: SERTRALINE HCL 50 MG TABLET (FP) PO SCH (09:29)
[2021-09-21] MEDS: BACITRACIN 15 GM TUBE TOPICAL OINTMENT TP SCH ×2 (09:29→21:19)
[2021-09-21] MEDS ORDERED: POTASSIUM CHLORIDE TABS 20 MEQ TABLET.ER (FP) PO ONE (15:42)
[2021-09-21] MEDS ORDERED: MAGNESIUM OXIDE 400 MG TABLET (FP) PO ONE (15:43)
[2021-09-21] MEDS ORDERED: KCL 10 MEQ IVPB 10 MEQ/100 ML INFUS.BAG IVPB SCH (15:45)
[2021-09-21] MEDS: SENNOSIDES 8.6MG TABLET (FP) PO SCH (21:18)
[2021-09-21] MEDS: MELATONIN 5 MG TABLETS PO SCH (21:19)
[2021-09-22] MEDS: hydrALAZINE HCL 25 MG TABLET (FP) PO SCH ×3 (05:22→21:32)
[2021-09-22 06:46] LABS: HEMATOCRIT 33.7 % (32.4-45.2); HEMOGLOBIN 11.4 GM/dL (10.7-15.3); MCH 29.6 pg (25.7-33.7); MCHC 33.9 g/dl (32.0-36.0); MEAN CELL VOLUME 87.2 fl (80-96); MEAN PLT VOLUME 8.6 fl (7.5-11.1); PLATELET COUNT 275 10^3/uL (134-434); RBC 3.86 M/mm3 (3.60-5.2); RDW 14.5 % (11.6-15.6); WHITE BLOOD COUNT 6.8 K/mm3 (4.0-10.0)
[2021-09-22] MEDS: INSULIN SLIDING SCALE (NOVOLOG) 1 VIAL SQ SCH ×4 (07:00→21:34)
[2021-09-22 07:10] LABS: ALBUMIN 2.1 g/dl (3.4-5.0); CALCIUM 8.6 mg/dL (8.5-10.1)
[2021-09-22 07:11] LABS: BLOOD UREA NITROGEN 8.4 mg/dL (7-18)
[2021-09-22 07:12] LABS: CREATININE 0.6 mg/dL (0.55-1.3)
[2021-09-22 07:13] LABS: BILIRUBIN,TOTAL 0.7 mg/dL (0.2-1); TOT PROT 5.6 g/dl (6.4-8.2)
[2021-09-22 07:14] LABS: PHOSPHOROUS 3.1 mg/dL (2.5-4.9)
[2021-09-22] MEDS: LISINOPRIL 20 MG TABLET PO SCH (09:30)
[2021-09-22] MEDS: SERTRALINE HCL 50 MG TABLET (FP) PO SCH (09:30)
[2021-09-22] MEDS: HEPARIN NA (PORCINE) 5,000 UNITS/ML 1ML VIAL SQ SCH ×2 (09:30→21:32)
[2021-09-22] MEDS: ISOSORBIDE MONONITRATE 30 MG TAB.SR.24H (FP) PO SCH (09:30)
[2021-09-22] MEDS: FAMOTIDINE 20 MG/50 ML IVPB 20 MG/50 ML MG IVPB SCH ×2 (09:31→21:31)
[2021-09-22] MEDS: amLODIPine BESYLATE 10 MG TABLET (FP) PO SCH (09:31)
[2021-09-22] MEDS: BACITRACIN 15 GM TUBE TOPICAL OINTMENT TP SCH ×2 (11:41→21:32)
[2021-09-22] MEDS: MELATONIN 5 MG TABLETS PO SCH (21:31)
[2021-09-22] MEDS: SENNOSIDES 8.6MG TABLET (FP) PO SCH (21:32)
[2021-09-23] MEDS: hydrALAZINE HCL 25 MG TABLET (FP) PO SCH ×2 (07:07→15:15)
[2021-09-23] MEDS: INSULIN SLIDING SCALE (NOVOLOG) 1 VIAL SQ SCH ×4 (07:08→23:22)
[2021-09-23 07:22] LABS: HEMATOCRIT 34.1 % (32.4-45.2); HEMOGLOBIN 11.6 GM/dL (10.7-15.3); MCH 29.5 pg (25.7-33.7); MEAN CELL VOLUME 86.8 fl (80-96); MEAN PLT VOLUME 7.9 fl (7.5-11.1); PLATELET COUNT 309 10^3/uL (134-434); RBC 3.93 M/mm3 (3.60-5.2); RDW 14.9 % (11.6-15.6); WHITE BLOOD COUNT 8.4 K/mm3 (4.0-10.0)
[2021-09-23 07:56] LABS: ALBUMIN 2.1 g/dl (3.4-5.0); BLOOD UREA NITROGEN 10.5 mg/dL (7-18); CALCIUM 8.4 mg/dL (8.5-10.1)
[2021-09-23 07:58] LABS: PHOSPHOROUS 3.5 mg/dL (2.5-4.9); URIC ACID 2.8 mg/dL (2.6-7.2)
[2021-09-23 07:59] LABS: CREATININE 0.6 mg/dL (0.55-1.3)
[2021-09-23 08:00] LABS: BILIRUBIN,TOTAL 0.6 mg/dL (0.2-1); TOT PROT 5.6 g/dl (6.4-8.2)
[2021-09-23] MEDS: ISOSORBIDE MONONITRATE 30 MG TAB.SR.24H (FP) PO SCH (09:40)
[2021-09-23] MEDS: amLODIPine BESYLATE 10 MG TABLET (FP) PO SCH (09:41)
[2021-09-23] MEDS: BACITRACIN 15 GM TUBE TOPICAL OINTMENT TP SCH ×2 (09:41→23:15)
[2021-09-23] MEDS: HEPARIN NA (PORCINE) 5,000 UNITS/ML 1ML VIAL SQ SCH ×2 (09:41→23:14)
[2021-09-23] MEDS: LISINOPRIL 20 MG TABLET PO SCH (09:41)
[2021-09-23] MEDS: SERTRALINE HCL 50 MG TABLET (FP) PO SCH (09:41)
[2021-09-23] MEDS: FAMOTIDINE 20 MG/50 ML IVPB 20 MG/50 ML MG IVPB SCH ×2 (09:41→23:15)
[2021-09-23] MEDS ORDERED: SENNOSIDES 8.6MG TABLET (FP) PO SCH (22:00)
[2021-09-23] MEDS ORDERED: MELATONIN 5 MG TABLETS PO SCH (22:00)
[2021-09-23] MEDS: hydrALAZINE HCL 50 MG TABLET (FP) PO SCH (23:15)
[2021-09-24] MEDS: hydrALAZINE HCL 50 MG TABLET (FP) PO SCH ×2 (05:23→14:58)
[2021-09-24] MEDS: INSULIN SLIDING SCALE (NOVOLOG) 1 VIAL SQ SCH ×3 (07:10→18:15)
[2021-09-24] MEDS ORDERED: SERTRALINE HCL 50 MG TABLET (FP) PO SCH (10:00)
[2021-09-24] MEDS ORDERED: ISOSORBIDE MONONITRATE 30 MG TAB.SR.24H (FP) PO SCH (10:00)
[2021-09-24] MEDS ORDERED: LISINOPRIL 20 MG TABLET PO SCH (10:00)
[2021-09-24] MEDS ORDERED: amLODIPine BESYLATE 10 MG TABLET (FP) PO SCH (10:00)
[2021-09-24 11:05] LABS: BASO % 0.7 % (0-2.0); EOS % 2.6 % (0-4.5); HEMATOCRIT 35.2 % (32.4-45.2); LYMPH % 12.2 % (8-40); MCH 29.8 pg (25.7-33.7); MCHC 34.1 g/dl (32.0-36.0); MEAN CELL VOLUME 87.4 fl (80-96); MEAN PLT VOLUME 7.9 fl (7.5-11.1); NEUT % 78.5 % (42.8-82.8); PLATELET COUNT 348 10^3/uL (134-434); RBC 4.03 M/mm3 (3.60-5.2); RDW 14.7 % (11.6-15.6); WHITE BLOOD COUNT 8.4 K/mm3 (4.0-10.0)
[2021-09-24] MEDS: BACITRACIN 15 GM TUBE TOPICAL OINTMENT TP SCH (12:12)
[2021-09-24] MEDS: HEPARIN NA (PORCINE) 5,000 UNITS/ML 1ML VIAL SQ SCH (12:12)
[2021-09-24] MEDS: FAMOTIDINE 20 MG/50 ML IVPB 20 MG/50 ML MG IVPB SCH (12:13)
[2021-09-24] MEDS ORDERED: FAMOTIDINE 20 MG TABLET PO ONE (12:22)
[2021-09-24 12:48] LABS: CALCIUM 8.5 mg/dL (8.5-10.1)
[2021-09-24 12:49] LABS: ALBUMIN 2.2 g/dl (3.4-5.0); BLOOD UREA NITROGEN 12.7 mg/dL (7-18)
[2021-09-24 12:52] LABS: CREATININE 0.7 mg/dL (0.55-1.3); PHOSPHOROUS 3.5 mg/dL (2.5-4.9)
[2021-09-24 12:53] LABS: BILIRUBIN,TOTAL 0.5 mg/dL (0.2-1)
[2021-09-24 12:54] LABS: MAGNESIUM 2.2 mg/dL (1.8-2.4)
[2021-09-24 19:52] VITALS: BP 114/60; PULSE 70; TEMP 99.1
[2021-09-25] MEDS ORDERED: FAMOTIDINE 20 MG TABLET PO SCH ×2 (10:00)
== END 2021-09-24 18:23 | DRG 853 ==
LOC: JER 18:45 → JERBED 21:39 → J2W 09-13 21:11 → J5S 09-23 18:25
PROVIDERS: ADMIT Hospitalist; ATTEND Internal Medicine
PROC: 0DTU0ZZ Resection of Omentum, Open Approach (ICD-10-PCS; 2021-09-13)
PROC: 0DB80ZZ Excision of Small Intestine, Open Approach (ICD-10-PCS; principal; 2021-09-13 10:00)
PROC: 0WQF0ZZ Repair Abdominal Wall, Open Approach (ICD-10-PCS; 2021-09-13 10:00)
DX: A41.9 Sepsis, unspecified organism (principal); G93.41 Metabolic encephalopathy; K42.0 Umbilical hernia with obstruction, without gangrene; N39.0 Urinary tract infection, site not specified; E87.2 Acidosis; I50.30 Unspecified diastolic (congestive) heart failure; R65.20 Severe sepsis without septic shock; E66.01 Morbid (severe) obesity due to excess calories; I48.0 Paroxysmal atrial fibrillation; I25.10 Atherosclerotic heart disease of native coronary artery without angina pectoris; Z98.61 Coronary angioplasty status; E78.5 Hyperlipidemia, unspecified; F32.A Depression, unspecified; K21.9 Gastro-esophageal reflux disease without esophagitis; E11.9 Type 2 diabetes mellitus without complications; I11.0 Hypertensive heart disease with heart failure; I16.0 Hypertensive urgency
CPT/HCPCS: 0241U-QW; 36415; 71045-TC-FY; 74177-TC; 80053; 80061; 81003; 82803; 82962; 83036; 83605; 83690; 83735; 83880; 84100; 84443; 84550; 85025; 85027; 85610; 85730; 86850; 86900; 86901; 87040; 87086; 87186; 88302-TC; 88305-TC; 88307-TC; 93005; 93010; 94760; 97116-GP; 97161-GP; 99285-25; C9803-CS; J1644; Q9967; U0003; U0005